=== PATIENT | female | born 1960 | race Caucasian/White ===

== ENCOUNTER 2017-09-16 13:31 | Emergency (ER) | payer BC, SELFPAY ==
--- OUTSIDE RECORDS SUMMARY | 2017-09-16 13:33 | XMS REPORT | Clinical Summary ---
:1960 Author Organization [facility] Address [address] [place] [address] Phone Care Team Providers Name Role Phone Unavailable Primary Care Provider Unavailable Allergies No Known Allergies Current Medications Prescription Sig. Disp. Refills Start Date End Date Status rOPINIRole (REQUIP) 1 Take 1 mg by Active MG tablet mouth 3 (three) times daily Pt stated that she is unsure of the dose and only takes it prn . aspirin 81 MG chewable Take 1 tablet (81 30 tablet 3 03/27/2016 Active tablet mg total) by mouth daily. atorvastatin (LIPITOR) Take 1 tablet (80 30 tablet 3 03/27/2016 Active 80 MG tablet mg total) by mouth daily. Active Problems Problem Noted Date Ex-smoker 03/27/2016 Right sided weakness 03/26/2016 Headache 03/26/2016 Restless leg syndrome 03/26/2016 Hyperlipidemia 03/26/2016 Aphasia 03/26/2016 TIA (transient ischemic attack) 03/25/2016 Family History Medical History Relation Name Comments Migraines Brother Stroke Maternal Grandmother Seizures Sister Relation Name Status Comments Brother Maternal Grandmother Sister Sister Alive Social History Tobacco Use Types Packs/Day Years Used Date Former Smoker Quit: 08/08/2009 Smokeless Tobacco: Never Used Tobacco Cessation: Counseling Given: No Alcohol Use Drinks/Week oz/Week Comments Yes 2 Cans of beer 1.2 2 can of beer every 6 months Sex Assigned at Date Recorded Not on file Last Filed Vital Signs Not on file Plan of Treatment Not on file Results Not on fileafter 09/15/2016
--- NOTE | 2017-09-16 14:25 | RAD REPORT ---
EXAM DESCRIPTION: VAS - Extrem Venous W Compress Apollo - 09/16/2017 2:10 pm CLINICAL HISTORY: Bilateral leg edema and swelling. COMPARISON: 03/24/2014 TECHNIQUE: Real-time sonographic interrogation of the left and right lower extremity deep venous sys tems was performed. FINDINGS: Normal compressibility, flow augmentation, phasic flow and spontaneous flow is identified in both the left and right lower extremity deep venous systems. IMPRESSION: No sonographic evidence of left or right lower extremity deep venous thrombosis.
--- NOTE | 2017-09-16 16:11 | RAD REPORT ---
EXAM DESCRIPTION: RAD - Tib Fib Right - 09/16/2017 4:04 pm CLINICAL HISTORY: Leg pain COMPARISON: None. FINDINGS: No fracture is identified. There is no dislocation or periosteal reaction noted. No knee o r ankle joint abnormality identifiable. No acute or suspicious bony finding. No foreign body or other soft tissue abnormality. IMPRESSION: Negative right tibia & fibula examination.
--- NOTE | 2017-09-16 16:23 | EDPHYS ---
Physician Documentation [facility] Name: Marisa Baker Age: 57 yrs Sex: Female : 1960 Arrival Date: 09/16/2017 Time: 13:37 Bed 9 Private MD: Nelson Jacobson B ED Physician Mata Woodard HPI: 09/16 15:45 This 57 yrs old Female presents to ER via Ambulatory with complaints of Leg cp Pain. 15:45 The patient presents with pain, that is acute, tenderness. The complaints affect the cp right calf and right Achilles. Context: resulted from an unknown cause. 15:45 Onset: The symptoms/episode began/occurred this morning. cp 15:45 Associated signs and symptoms: Pertinent positives: calf tenderness, Pertinent cp negatives fever, shortness of breath, chest pain. Historical: - Allergies: 13:47 No Known Allergies; ch - Home Meds: 13:47 None [Active]; ch - PMHx: 13:47 CVA; "small blood clot somewhere"; ch - PSHx: 13:47 Hysterectomy; Tonsillectomy; breast augmentation; ; Bunionectomy; ch Cholecystectomy; hemmerhoiectomy; shoulders; - Immunization history:: Adult Immunizations up to date, Flu vaccine is not up to date. - Social history:: Smoking status: Patient/guardian denies using tobacco, Patient/guardian denies using alcohol, street drugs. ROS: 15:50 Constitutional: Negative for body aches, chills, fever, poor PO intake. cp 15:50 Eyes: Negative for injury, pain, redness, and discharge. cp 15:50 ENT: Negative for drainage from ear(s), ear pain, sore throat, difficulty swallowing, difficulty handling secretions. 15:50 Cardiovascular: Negative for chest pain, edema, palpitations. 15:50 Respiratory: Negative for cough, shortness of breath, wheezing. 15:50 Abdomen/GI: Negative for abdominal pain, nausea, vomiting, and diarrhea, black/tarry stool, rectal bleeding. 15:50 Back: Negative for pain at rest, pain with movement, radiated pain. 15:50 : Negative for urinary symptoms. 15:50 MS/extremity: Positive for pain, tenderness, of the right Achilles and right calf. 15:50 Skin: Negative for cellulitis, diaphoresis, rash. 15:50 Neuro: Negative for altered mental status, headache, numbness, syncope, near syncope, tingling, weakness. 15:50 All other systems are negative. Exam: 15:58 Constitutional: The patient appears in no acute distress, alert, awake, well developed, cp well nourished. 15:58 Head/Face: Normocephalic, atraumatic. cp 15:58 Eyes: Periorbital structures: appear normal, Conjunctiva: normal, no exudate, no injection, Sclera: no appreciated abnormality, Lids and lashes: appear normal, bilaterally. 15:58 ENT: External ear(s): are unremarkable, Nose: is normal, Mouth: is normal, Posterior pharynx: is normal, airway is patent, no erythema, no exudate. 15:58 Chest/axilla: Inspection: normal. 15:58 Cardiovascular: Rate: normal. 15:58 Respiratory: the patient does not display signs of respiratory distress, Respirations: normal, no use of accessory muscles, no retractions, no splinting, no tachypnea. 15:58 Abdomen/GI: Exam negative for discomfort, distension, guarding, Inspection: abdomen appears normal. 15:58 Musculoskeletal/extremity: Extremities: grossly normal except: noted in the right Achilles and right calf: pain, There is no evidence of decreased ROM, deformity, ecchymosis, erythema, swelling. 15:58 Skin: cellulitis, is not appreciated, no rash present. Vital Signs: 13:47 BP 143 / 99; Pulse 74; Resp 16; Temp 98.5; Pulse Ox 99% on R/A; Weight 70.76 kg; Height ch 5 ft. 3 in. (160.02 cm); Pain 6/10; 16:31 BP 137 / 84; Pulse 87; Resp 16; Pulse Ox 99% on R/A; aj 13:47 Body Mass Index 27.63 (70.76 kg, 160.02 cm) ch MDM: 15:30 Patient medically screened. cp 16:22 Data reviewed: vital signs, nurses notes, radiologic studies, plain films, ultrasound, cp and as a result, I will discharge patient. 09/16 13:50 Order name: US Extrem Venous W Compression Apollo; Complete Time: 15:12 09/16 15:43 Order name: XRAY Tib Fib RIGHT; Complete Time: 16:22 cp 09/16 16:22 Interpretation: Report reviewed. cp Administered Medications: No medications were administered Disposition: 09/16/17 16:23 Discharged to Home. Impression: Pain in right lower leg. - Condition is Stable. - Discharge Instructions: Musculoskeletal Pain. - Prescriptions for Cyclobenzaprine 10 mg Oral Tablet - take 1 tablet by ORAL route every 8 hours As needed no driving while taking medication; 20 tablet. Medrol (Haile) 4 mg Oral Tablets, Dose Pack - take 1 tablet by ORAL route as directed - follow package instructions; 1 packet. - Medication Reconciliation Form, Thank You Letter, Antibiotic Education, Prescription Opioid Use form. - Follow up: Private Physician; When: 2 - 3 days; Reason: Recheck today's complaints. - Problem is new. - Symptoms are unchanged. Addendum: 09/21/2017 19:52 Co-signature as Attending Physician, Mata Woodard MD. m a2 Signatures: Dispatcher [employer] EDLizz Hernandez, ALEJANDRO-C ALEJANDRO-Maria Guadalupe Leija RN RN Marium Fortune RN RN aj Page, Corey, LAZARO PA Mata Haque MD MD nv2 Corrections: (The following items were deleted from the chart) 09/16 16:33 16:23 09/16/2017 16:23 Discharged to Home. Impression: Pain in right lower leg. aj Condition is Stable. Forms are Medication Reconciliation Form, Thank You Letter, Antibiotic Education, Prescription Opioid Use. Follow up: Private Physician; When: 2 - 3 days; Reason: Recheck today's complaints. Problem is new. Symptoms are unchanged. cp
--- NOTE | 2017-09-16 16:23 | ER ---
Nurse's Notes [facility] Name: Marisa Baker Age: 57 yrs Sex: Female : 1960 Arrival Date: 09/16/2017 Time: 13:37 Bed 9 Private MD: Nelson Jacobson B Diagnosis: Pain in right lower leg Presentation: 09/16 13:44 Presenting complaint: Patient states: "i have clotty blood" pt c/o pain to L calf ch started this morning. pain is in L calf radiating up and down leg. I am worried i have a blood clot in my leg, I had a blood clot stroke. On Friday I had a out of body/dizzyness experience, and since then I have not felt well, I feel very tired, worn out and weak. Transition of care: patient was not received from another setting of care. Onset of symptoms was September 16, 2017 at 06:30. Initial Sepsis Screen: Does the patient meet any 2 criteria? No. Patient's initial sepsis screen is negative. Does the patient have a suspected source of infection? No. Patient's initial sepsis screen is negative. Care prior to arrival: None. 13:44 Method Of Arrival: Ambulatory 13:44 Acuity: YESSI 3 ch Triage Assessment: 13:47 General: Appears in no apparent distress. comfortable, Behavior is calm, cooperative, ch appropriate for age. Pain: Complains of pain in left calf. Historical: - Allergies: 13:47 No Known Allergies; - Home Meds: 13:47 None [Active]; - PMHx: 13:47 CVA; "small blood clot somewhere"; - PSHx: 13:47 Hysterectomy; Tonsillectomy; breast augmentation; ; Bunionectomy; ch Cholecystectomy; hemmerhoiectomy; shoulders; - Immunization history:: Adult Immunizations up to date, Flu vaccine is not up to date. - Social history:: Smoking status: Patient/guardian denies using tobacco, Patient/guardian denies using alcohol, street drugs. Screenin:14 Abuse screen: Denies threats or abuse. Denies injuries from another. Nutritional aj screening: No deficits noted. Tuberculosis screening: No symptoms or risk factors identified. Fall Risk None identified. Assessment: 15:32 Reassessment: pt not in lobby or US. will call again. ss 16:14 General: Appears in no apparent distress. comfortable, Behavior is calm, cooperative, aj appropriate for age. Pain: Complains of pain in right leg. Neuro: Level of Consciousness is awake, alert, obeys commands, Oriented to person, place, time, situation, Appropriate for age. Respiratory: Airway is patent Respiratory effort is even, unlabored, Respiratory pattern is regular, symmetrical. GI: Abdomen is flat, non-distended. Derm: Skin is intact, is healthy with good turgor, Skin is pink, warm \\T\\ dry. normal. Musculoskeletal: Circulation, motion, and sensation intact. Capillary refill < 3 seconds, in bilateral fingers. Range of motion: intact in all extremities, Swelling absent. Vital Signs: 13:47 BP 143 / 99; Pulse 74; Resp 16; Temp 98.5; Pulse Ox 99% on R/A; Weight 70.76 kg; Height ch 5 ft. 3 in. (160.02 cm); Pain 6/10; 16:31 BP 137 / 84; Pulse 87; Resp 16; Pulse Ox 99% on R/A; aj 13:47 Body Mass Index 27.63 (70.76 kg, 160.02 cm) ED Course: 13:37 Patient arrived in ED. mr 13:37 Nelson Jacobson MD is Private Physician. mr 13:46 Triage completed. ch 13:47 Arm band placed on left wrist. Patient placed in waiting room. ch 13:55 Patient taken to ultrasound. via wheelchair. aa4 14:09 Patient moved back from ultrasound. aa4 14:11 US Extrem Venous W Compression Apollo In Process Unspecified. EDMS 15:30 Alvino Kam PA is PHCP. cp 15:30 Mata Woodard MD is Attending Physician. cp 15:38 Alvino Kam PA is PHCP. cp 15:38 Mata Woodard MD is Attending Physician. cp 15:41 Marium Roberson, AMY is Primary Nurse. aj 16:03 X-ray completed. Portable x-ray completed in exam room. Patient tolerated procedure ml well. 16:05 XRAY Tib Fib RIGHT In Process Unspecified. EDMS 16:14 Patient has correct armband on for positive identification. aj 16:31 No provider procedures requiring assistance completed. Patient did not have IV access aj during this emergency room visit. Administered Medications: No medications were administered Outcome: 16:23 Discharge ordered by . lisset 16:31 Discharged to home ambulatory. cely 16:31 Condition: good 16:31 Discharge instructions given to patient, Instructed on discharge instructions, follow up and referral plans. medication usage, Demonstrated understanding of instructions, follow-up care, medications, Prescriptions given X 2. 16:33 Patient left the ED. cely Signatures: Dispatcher [employer] EDMS Maria Guadalupe Campa, Marium Recinos RN, ch, RN RN aj Rivera, Maria mr Byron, Marium Rachel aa4 Sherry Juarez RN RN Alvino Musa, PA PA cp
[2017-09-16 17:03] VITALS: TEMP 98.5; O2SAT 99
[2017-09-16 17:05] VITALS: BP 137/84
== END 2017-09-16 16:33 | disposition home or self-care (01) ==
LOC: ER 13:31
DX: M79.661 Pain in right lower leg (principal); Z86.73 Personal history of transient ischemic attack (TIA), and cerebral infarction without residual deficits
CPT/HCPCS: 93970; 99284

== ENCOUNTER 2017-11-21 00:33 | Emergency (ER) | payer BC ==
[2017-11-21] MEDS ORDERED: NA CHLORIDE 0.9% 1,000 ML ONE ×2 (01:07→02:16)
[2017-11-21 01:25] LABS: Absolute Monocytes 1.4 K/uL (0.1-1.3); Absolute Neutrophil 7.7 K/uL (1.8-8.0); Basophils % 0.5 % (0-1.3); Eosinophils % 0.3 % (0-4.4); Hematocrit 43.8 % (36.0-45.0); MCH 29.8 pg (27.0-35.0); MCV 87.6 fL (80-100); MPV 9.5 fL (7.6-11.3); Monocytes % 14.1 % (3.3-12.3)
[2017-11-21 01:27] LABS: Urine Blood 1+ (NEG); Urine Glucose NEGATIVE (NEG); Urine Specific Gravity 1.025 (1.005-1.030)
[2017-11-21 01:28] LABS: Urine Protein TRACE (NEG)
[2017-11-21] MEDS ORDERED: ACETAMINOPHEN 325 MG TABLET ONE (01:32)
[2017-11-21] MEDS ORDERED: ONDANSETRON 4 MG/2 ML VIAL ONE (01:33)
[2017-11-21] MEDS ORDERED: MORPHINE 4 MG/ML SYR ONE ×2 (01:33→02:45)
[2017-11-21 01:41] LABS: Protime INR 1.19
[2017-11-21 01:53] LABS: ALT/SGPT 42 U/L (12-78); AST/SGOT 37 U/L (15-37); Albumin 4.1 g/dL (3.4-5.0); Alkaline Phosphatase 109 U/L (45-117); BUN Blood Urea Nitrogen 10 mg/dL (7-18); Bicarbonate 26 mmol/L (21-32); Bilirubin Direct 0.1 mg/dL (0-0.2); Bilirubin Total 0.7 mg/dL (0.2-1.0); CKMB Creatine Kinase MB < 1.0 ng/mL (0.3-3.6); Creatine Phosphokinase 42 U/L (26-192); Glucose Level 110 mg/dL (74-106); Magnesium 1.9 mg/dL (1.8-2.4); NT PRO-BNP 55 pg/mL (<125); Potassium 3.5 mmol/L (3.5-5.1); Protein, Total 8.2 g/dL (6.4-8.2); Sodium Level 138 mmol/L (136-145)
--- NOTE | 2017-11-21 02:44 | EDPHYS ---
Physician Documentation [facility] Name: Marisa Baker Age: 57 yrs Sex: Female : 1960 Arrival Date: 11/21/2017 Time: 00:34 Bed 24 Private MD: Nelson Jacobson B ED Physician Skinny Hernandez HPI: 11/21 01:00 This 57 yrs old Female presents to ER via Ambulatory with complaints of pkl Abdominal Pain, Fever. 01:00 The patient reports fever, with an emergency department temperature of 100.5 degrees pkl Fahrenheit. Onset: The symptoms/episode began/occurred 2 day(s) ago. Associated signs and symptoms: Pertinent positives: generalized weakness and pain. Historical: - Allergies: 00:49 No Known Allergies; tl2 - Home Meds: 00:49 None [Active]; tl2 - PMHx: 00:49 CVA; "small blood clot somewhere"; tl2 - PSHx: 00:49 Cholecystectomy; ; Hysterectomy; Tonsillectomy; tl2 - Immunization history:: Adult Immunizations up to date, Flu vaccine is not up to date. - Social history:: Smoking status: Patient/guardian denies using tobacco. - Ebola Screening: : No symptoms or risks identified at this time. ROS: 01:00 Eyes: Negative for injury, pain, redness, and discharge. pkl 01:00 ENT: Positive for sore throat. 01:00 Neck: Negative for stiffness. 01:00 Cardiovascular: Negative for chest pain. 01:00 Respiratory: Negative for cough, shortness of breath. 01:00 Abdomen/GI: Negative for nausea, vomiting, and diarrhea. 01:00 Back: Negative for acute changes. 01:00 : Negative for urinary symptoms. 01:00 MS/extremity: Negative for acute changes. 01:00 Skin: Negative for rash. pkl 01:00 Neuro: Negative for altered mental status. Exam: 01:00 Head/Face: Normocephalic, atraumatic. Eyes: Pupils equal round and reactive to light, pkl extra-ocular motions intact. Lids and lashes normal. Conjunctiva and sclera are non-icteric and not injected. Cornea within normal limits. Periorbital areas with no swelling, redness, or edema. ENT: Nares patent. No nasal discharge, no septal abnormalities noted. Tympanic membranes are normal and external auditory canals are clear. Oropharynx with no redness, swelling, or masses, exudates, or evidence of obstruction, uvula midline. Mucous membranes moist. Neck: Trachea midline, no thyromegaly or masses palpated, and no cervical lymphadenopathy. Supple, full range of motion without nuchal rigidity, or vertebral point tenderness. No Meningismus. Chest/axilla: Normal chest wall appearance and motion. Nontender with no deformity. No lesions are appreciated. Cardiovascular: Regular rate and rhythm with a normal S1 and S2. No gallops, murmurs, or rubs. Normal PMI, no JVD. No pulse deficits. Respiratory: Lungs have equal breath sounds bilaterally, clear to auscultation and percussion. No rales, rhonchi or wheezes noted. No increased work of breathing, no retractions or nasal flaring. Abdomen/GI: Soft, non-tender, with normal bowel sounds. No distension or tympany. No guarding or rebound. No evidence of tenderness throughout. Back: No spinal tenderness. No costovertebral tenderness. Full range of motion. Skin: Warm, dry with normal turgor. Normal color with no rashes, no lesions, and no evidence of cellulitis. MS/ Extremity: Pulses equal, no cyanosis. Neurovascular intact. Full, normal range of motion. Neuro: Awake and alert, GCS 15, oriented to person, place, time, and situation. Cranial nerves II-XII grossly intact. Motor strength 5/5 in all extremities. Sensory grossly intact. Cerebellar exam normal. Normal gait. Vital Signs: 00:49 BP 135 / 81; Pulse 107; Resp 20; Temp 100.5(O); Pulse Ox 96% on R/A; Weight 68.04 kg; tl2 Height 5 ft. 2 in. (157.48 cm); Pain 8/10; 01:45 BP 124 / 70; Pulse 87; Resp 16; Pulse Ox 97% on R/A; mb3 02:44 BP 90 / 49; Pulse 85; Resp 16; Pulse Ox 96% on R/A; mb3 00:49 Body Mass Index 27.44 (68.04 kg, 157.48 cm) tl2 MDM: 00:52 Patient medically screened. pkl 02:42 Data reviewed: vital signs, nurses notes, lab test result(s), radiologic studies, plain pkl films. 11/21 00:59 Order name: Basic Metabolic Panel; Complete Time: 01:53 pkl 11/21 00:59 Order name: CBC with Diff; Complete Time: 01:39 pkl 11/21 00:59 Order name: Ckmb; Complete Time: 01:53 pkl 11/21 00:59 Order name: CPK; Complete Time: 01:53 pkl 11/21 00:59 Order name: LFT's; Complete Time: 01:53 pkl 11/21 00:59 Order name: Magnesium; Complete Time: 01:53 pkl 11/21 00:59 Order name: NT PRO-BNP; Complete Time: 01:53 pkl 11/21 00:59 Order name: PT-INR; Complete Time: 01:53 pkl 11/21 00:59 Order name: Ptt, Activated; Complete Time: 01:53 pkl 11/21 00:59 Order name: Troponin (emerg Dept Use Only); Complete Time: 01:53 pkl 11/21 00:59 Order name: Blood Culture Adult (2) pkl 11/21 00:59 Order name: Strep; Complete Time: 02:42 pkl 11/21 01:05 Order name: Lactate; Complete Time: 01:53 pkl 11/21 01:23 Order name: Urine Dipstick--Ancillary (enter results) eb 11/21 00:59 Order name: XRAY Chest (1 view) pkl 11/21 00:59 Order name: EKG; Complete Time: 01:00 pkl 11/21 00:59 Order name: Cardiac monitoring; Complete Time: 01:16 pkl 11/21 00:59 Order name: EKG - Nurse/Tech; Complete Time: 01:16 pkl 11/21 00:59 Order name: IV Saline Lock; Complete Time: 01:16 pkl 11/21 00:59 Order name: Labs collected and sent; Complete Time: 01:16 pkl 11/21 00:59 Order name: O2 Per Protocol; Complete Time: 01:16 pkl 11/21 00:59 Order name: O2 Sat Monitoring; Complete Time: 01:16 pkl 11/21 01:23 Order name: Urine Dipstick-Ancillary; Complete Time: 01:28 EDMS 11/21 02:16 Order name: Throat Culture EDMS 07/06 00:59 Order name: Urine Dipstick-Ancillary (obtain specimen); Complete Time: 01:16 pkl Administered Medications: 01:30 Drug: NS 0.9% 1000 ml Route: IV; Rate: 1000 ml; Site: right antecubital; mb3 02:34 Follow up: Response: No adverse reaction; IV Status: Completed infusion; IV Intake: mb3 1000ml 01:35 Drug: Tylenol 650 mg Route: PO; mb3 02:34 Follow up: Response: No adverse reaction mb3 01:35 Drug: morphine 2 mg Route: IVP; Site: right antecubital; mb3 02:34 Follow up: Response: No adverse reaction mb3 01:35 Drug: Zofran 4 mg Route: IVP; Site: right antecubital; mb3 02:35 Follow up: Response: No adverse reaction mb3 02:20 Drug: NS 0.9% 1000 ml Route: IV; Rate: 125 ml/hr; Site: right antecubital; mb3 02:57 Follow up: Response: No adverse reaction; IV Status: Order to discontinue infusion; IV mb3 Intake: 250ml 02:43 Drug: morphine 2 mg Route: IVP; Site: right antecubital; mb3 Disposition: 11/21/17 02:43 Discharged to Home. Impression: Viral illness. Myalgia. - Condition is Stable. - Prescriptions for Ultram 50 mg Oral Tablet - take 1 tablet by ORAL route every 8 hours As needed; 20 tablet. - Medication Reconciliation Form, Thank You Letter, Antibiotic Education, Prescription Opioid Use form. - Follow up: Nelson Jacobson MD; When: 2 - 3 days; Reason: Re-evaluation by your physician. - Problem is new. - Symptoms have improved. Signatures: Dispatcher [employer] [facility] Skinny Hernandez MD MD pkMarcelina Rivera RN RN tl2 Herman Pabon, RN RN mb3 Corrections: (The following items were deleted from the chart) 02:56 02:43 11/21/2017 02:43 Discharged to Home. Impression: Viral illness. Myalgia. mb3 Condition is Stable. Forms are Medication Reconciliation Form, Thank You Letter, Antibiotic Education, Prescription Opioid Use. Follow up: Nelson Jacobson; When: 2 - 3 days; Reason: Re-evaluation by your physician. Problem is new. Symptoms have improved. pkl
--- NOTE | 2017-11-21 02:44 | ER ---
Nurse's Notes [facility] Name: Marisa Baker Age: 57 yrs Sex: Female : 1960 Arrival Date: 11/21/2017 Time: 00:34 Bed 24 Private MD: Nelson Jacobson B Diagnosis: Viral illness. Myalgia Presentation: 11/21 00:47 Presenting complaint: Patient states: Reports pain all over and general malaise x 2 tl2 days. States mother is in hospital for pneumonia and has similar symptoms. Denies cough or congestion, denies NVD. Reports fever yesterday. Transition of care: patient was not received from another setting of care. Onset of symptoms was November 18, 2017. Risk Assessment: Do you want to hurt yourself or someone else? Patient reports no desire to harm self or others. Initial Sepsis Screen: Does the patient meet any 2 criteria? Temp <36.0*C (96.8*F)) or > 38.3*C (100.4*F). HR > 90 bpm. Does the patient have a suspected source of infection? No. Patient's initial sepsis screen is negative. Care prior to arrival: None. 00:47 Method Of Arrival: Ambulatory tl2 00:47 Acuity: YESSI 3 tl2 Triage Assessment: 00:49 General: Appears in no apparent distress. uncomfortable, Behavior is calm, cooperative, tl2 appropriate for age, Reports fever for 12-24 hours, feeling ill for 1-2 days. Historical: - Allergies: 00:49 No Known Allergies; tl2 - Home Meds: 00:49 None [Active]; tl2 - PMHx: 00:49 CVA; "small blood clot somewhere"; tl2 - PSHx: 00:49 Cholecystectomy; ; Hysterectomy; Tonsillectomy; tl2 - Immunization history:: Adult Immunizations up to date, Flu vaccine is not up to date. - Social history:: Smoking status: Patient/guardian denies using tobacco. - Ebola Screening: : No symptoms or risks identified at this time. Screenin:50 Abuse screen: Denies threats or abuse. Nutritional screening: No deficits noted. tl2 Tuberculosis screening: No symptoms or risk factors identified. Fall Risk None identified. Assessment: 00:55 General: Appears distressed, uncomfortable, ill, Behavior is calm, cooperative, mb3 appropriate for age. Pain: Complains of pain in pt complains of pain all over, generalized. Neuro: Level of Consciousness is awake, alert, obeys commands, Oriented to person, place, time, situation, Appropriate for age. Cardiovascular: Heart tones S1 S2 present Capillary refill < 3 seconds Patient's skin is warm and dry. Respiratory: Airway is patent Respiratory effort is even, unlabored, Respiratory pattern is regular, symmetrical, Breath sounds are clear bilaterally. GI: Bowel sounds present X 4 quads. Abd is soft Abdomen is tender to palpation X 4 quads. Reports lower abdominal pain, upper abdominal pain. : No signs and/or symptoms were reported regarding the genitourinary system. EENT: No signs and/or symptoms were reported regarding the EENT system. Vital Signs: 00:49 BP 135 / 81; Pulse 107; Resp 20; Temp 100.5(O); Pulse Ox 96% on R/A; Weight 68.04 kg; tl2 Height 5 ft. 2 in. (157.48 cm); Pain 8/10; 01:45 BP 124 / 70; Pulse 87; Resp 16; Pulse Ox 97% on R/A; mb3 02:44 BP 90 / 49; Pulse 85; Resp 16; Pulse Ox 96% on R/A; mb3 00:49 Body Mass Index 27.44 (68.04 kg, 157.48 cm) tl2 ED Course: 00:34 Patient arrived in ED. ds1 00:34 Tyrone Alcantara MD is Private Physician. ds1 00:34 Nelson Jacobson MD is Private Physician. ds1 00:49 Triage completed. tl2 00:49 Arm band placed on right wrist. tl2 00:50 Herman Pabon, AMY is Primary Nurse. mb3 00:50 Patient has correct armband on for positive identification. Placed in gown. Bed in low tl2 position. Call light in reach. Side rails up X 1. Adult w/ patient. 00:52 Skinny Hernandez MD is Attending Physician. pkl 01:10 Inserted saline lock: 20 gauge in right antecubital area, using aseptic technique. mb3 Blood collected. 01:21 X-ray completed. Portable x-ray completed in exam room. Patient tolerated procedure kw well. 01:22 XRAY Chest (1 view) In Process Unspecified. EDMS 01:25 Second set of blood cultures drawn by me, Strep swab sent to lab. mb3 01:39 Patient maintains SpO2 saturation greater than 95% on room air. mb3 02:42 Nelson Jacobson MD is Referral Physician. pkl 02:49 No provider procedures requiring assistance completed. IV discontinued, intact, mb3 bleeding controlled, No redness/swelling at site. Pressure dressing applied. 02:57 Urine Dipstick--Ancillary (enter results) Sent. mb3 Administered Medications: 01:30 Drug: NS 0.9% 1000 ml Route: IV; Rate: 1000 ml; Site: right antecubital; mb3 02:34 Follow up: Response: No adverse reaction; IV Status: Completed infusion; IV Intake: mb3 1000ml 01:35 Drug: Tylenol 650 mg Route: PO; mb3 02:34 Follow up: Response: No adverse reaction mb3 01:35 Drug: morphine 2 mg Route: IVP; Site: right antecubital; mb3 02:34 Follow up: Response: No adverse reaction mb3 01:35 Drug: Zofran 4 mg Route: IVP; Site: right antecubital; mb3 02:35 Follow up: Response: No adverse reaction mb3 02:20 Drug: NS 0.9% 1000 ml Route: IV; Rate: 125 ml/hr; Site: right antecubital; mb3 02:57 Follow up: Response: No adverse reaction; IV Status: Order to discontinue infusion; IV mb3 Intake: 250ml 02:43 Drug: morphine 2 mg Route: IVP; Site: right antecubital; mb3 Intake: 02:34 IV: 1000ml; Total: 1000ml. mb3 02:57 IV: 250ml; Total: 1250ml. mb3 Outcome: 02:43 Discharge ordered by . pkl 02:50 Discharged to home ambulatory, with family. mb3 02:50 Condition: stable 02:50 Discharge instructions given to patient, Instructed on discharge instructions, follow up and referral plans. medication usage, Demonstrated understanding of instructions, follow-up care, medications, Prescriptions given X 1. 02:56 Patient left the ED. mb3 Signatures: Dispatcher [employer] EDMI Skinny Hernandez MD MD pkl Kasia Hennessy ds1 Kristan Rogers Taylor, RN RN tl2 Herman Pabon, RN RN mb3
[2017-11-21 03:00] VITALS: TEMP 100.5
[2017-11-21 03:02] VITALS: BP 90/49; O2SAT 96
--- NOTE | 2017-11-21 08:47 | RAD REPORT ---
EXAM DESCRIPTION: RAD - Chest Single View - 11/21/2017 1:22 am CLINICAL HISTORY: generalized pain Chest pain. COMPARISON: Chest Single View dated 10/21/2016; Chest Single View dated 03/25/2016; CHEST SINGLE VIEW d ated 04/23/2015; CHEST SINGLE VIEW dated 03/09/2015Chest Single View dated 10/21/2016; Chest Single View dated 03/25/2016; CHEST SINGLE VIEW dated 04/23/2015; CHEST SINGLE VIEW dated 03/09/2015; CHEST SINGLE VIEW dated 01/15/2015 FINDINGS: Portable technique limits examination quality. The lungs are grossly clear. The heart is normal in size. No displaced fractures. IMPRESSION: No acute intrathoracic process suspected.
--- NOTE | 2017-11-21 12:44 | EKG ---
Test Date: 2017-11-21 Test Time: 01:10:10 Factory Engineer: SVITLANA MEASUREMENT RESULTS: Intervals: Rate: 105 IA: 128 QRSD: 78 QT: 316 QTc: 417 [place]: P: 2 IA: 128 QRS: 9 T: 4 INTERPRETIVE STATEMENTS: Sinus tachycardia Nonspecific ST abnormality Abnormal ECG No previous ECG available for comparison Electronically Signed On 11-21-17 12:43:45 CDT by Eber Connors
== END 2017-11-21 02:56 | disposition home or self-care (01) ==
LOC: ER 00:33
DX: B34.9 Viral infection, unspecified (principal); M79.1 Myalgia
CPT/HCPCS: 36415; 71045; 80048; 80076; 81003; 82550; 82553; 83605; 83735; 83880; 84484; 85025; 85610; 85730; 87040; 87070; 87081; 93005; 96361; 96374; 96375; 99284; J2405; J7030

== ENCOUNTER 2017-11-23 22:12 | Emergency (ER) | payer BC ==
[2017-11-23] MEDS ORDERED: IBUPROFEN 400 MG TAB ONE (23:18)
[2017-11-23 23:25] LABS: Urine Blood 1+ (NEG); Urine Glucose NEGATIVE (NEG); Urine Protein TRACE (NEG); Urine pH 5.5 (5.0-7.0)
[2017-11-23 23:34] LABS: Urine Bacteria <20 /HPF (<20); Urine Culture Reflex Order NOT NEEDED; Urine RBC <5 /HPF (NONE SEEN)
[2017-11-24] MEDS ORDERED: levoFLOXacin 750 MG TAB ONE (00:18)
--- NOTE | 2017-11-24 00:41 | EDPHYS ---
Physician Documentation [facility] Name: Marisa Baker Age: 57 yrs Sex: Female : 1960 Arrival Date: 11/23/2017 Time: 22:14 Bed 5 Private MD: Nelson Jacobson B ED Physician Alvino Mckinley HPI: 11/23 23:06 This 57 yrs old Female presents to ER via Ambulatory with complaints of jr8 Cough, Chest Pressure. 23:06 The patient or guardian reports cough, that is intermittent, described as moderate, jr8 with no sputum. Onset: The symptoms/episode began/occurred gradually, 3 day(s) ago. Severity of symptoms: At their worst the symptoms were moderate, in the emergency department the symptoms are unchanged. Modifying factors: The symptoms are alleviated by nothing, the symptoms are aggravated by nothing. Associated signs and symptoms: Pertinent positives: chest pain, fever, sore throat, body aches, chills, headache . The patient has not experienced similar symptoms in the past. The patient has been recently seen by a physician: with similar presenting complaints, lab tests were done, X-rays were performed. Historical: - Allergies: 22:49 diphenhydramine HCl; ak1 - PMHx: 22:49 "small blood clot somewhere"; CVA; ak1 - PSHx: 22:49 Cholecystectomy; ; Hysterectomy; Tonsillectomy; ak1 - Immunization history:: Last tetanus immunization: up to date. - Social history:: Smoking status: Patient/guardian denies using tobacco. - Ebola Screening: : Patient negative for fever greater than or equal to 101.5 degrees Fahrenheit, and additional compatible Ebola Virus Disease symptoms Patient denies exposure to infectious person Patient denies travel to an Ebola-affected area in the 21 days before illness onset. ROS: 23:06 Eyes: Negative for injury, pain, redness, and discharge, Neck: Negative for injury, jr8 pain, and swelling, Abdomen/GI: Negative for abdominal pain, nausea, vomiting, diarrhea, and constipation, Back: Negative for injury and pain, MS/Extremity: Negative for injury and deformity, Skin: Negative for injury, rash, and discoloration. 23:06 Constitutional: Positive for body aches, chills, fever. 23:06 ENT: Positive for rhinorrhea, sinus congestion, sore throat. 23:06 Cardiovascular: Positive for chest pain, Negative for edema, orthopnea, palpitations, paroxysmal nocturnal dyspnea. 23:06 Respiratory: Positive for cough, Negative for dyspnea on exertion, shortness of breath, sputum production, wheezing. 23:06 Neuro: Positive for headache, Negative for altered mental status, dizziness, gait disturbance, hearing loss, loss of consciousness, numbness, seizure activity, speech changes, syncope, near syncope, tingling, tinnitus, tremor, visual changes, weakness. Exam: 23:55 Eyes: Pupils equal round and reactive to light, extra-ocular motions intact. Lids and jr8 lashes normal. Conjunctiva and sclera are non-icteric and not injected. Cornea within normal limits. Periorbital areas with no swelling, redness, or edema. ENT: Nares patent. No nasal discharge, no septal abnormalities noted. Tympanic membranes are normal and external auditory canals are clear. Oropharynx with no redness, swelling, or masses, exudates, or evidence of obstruction, uvula midline. Mucous membranes moist. Neck: Trachea midline, no thyromegaly or masses palpated, and no cervical lymphadenopathy. Supple, full range of motion without nuchal rigidity, or vertebral point tenderness. No Meningismus. Cardiovascular: Regular rate and rhythm with a normal S1 and S2. No gallops, murmurs, or rubs. Normal PMI, no JVD. No pulse deficits. Respiratory: Lungs have equal breath sounds bilaterally, clear to auscultation and percussion. No rales, rhonchi or wheezes noted. No increased work of breathing, no retractions or nasal flaring. Abdomen/GI: Soft, non-tender, with normal bowel sounds. No distension or tympany. No guarding or rebound. No evidence of tenderness throughout. Back: No spinal tenderness. No costovertebral tenderness. Full range of motion. Skin: Warm, dry with normal turgor. Normal color with no rashes, no lesions, and no evidence of cellulitis. MS/ Extremity: Pulses equal, no cyanosis. Neurovascular intact. Full, normal range of motion. Neuro: Awake and alert, GCS 15, oriented to person, place, time, and situation. Cranial nerves II-XII grossly intact. Motor strength 5/5 in all extremities. Sensory grossly intact. Cerebellar exam normal. Normal gait. Vital Signs: 22:20 BP 125 / 77; Pulse 96; Resp 24; Temp 100.4(O); Pulse Ox 98% on R/A; Weight 70.76 kg (R); Height 5 ft. 3 in. (160.02 cm) (R); Pain 8; 11/24 00:30 BP 105 / 71; Pulse 86; Resp 18; Temp 100(O); Pulse Ox 98% on R/A; ak1 11/23 22:20 Body Mass Index 27.63 (70.76 kg, 160.02 cm) [facility]: 11/23 22:32 Patient medically screened. graham 23:55 Data reviewed: vital signs, nurses notes, lab test result(s), EKG, radiologic studies, jr8 plain films. Data interpreted: Pulse oximetry: on room air is 98 %. Interpretation: normal. Counseling: I had a detailed discussion with the patient and/or guardian regarding: the historical points, exam findings, and any diagnostic results supporting the discharge/admit diagnosis, lab results, radiology results, the need for outpatient follow up, a family practitioner, to return to the emergency department if symptoms worsen or persist or if there are any questions or concerns that arise at home. 11/24 00:46 ED course: All images and old labs reviewed from two days ago. Negative studies then [facility] without culture growth. No acute findings today. Most compatible with virus based on symptoms and negative cultures and blood work. Will treat symptomatically and to f/u with PCP . 11/23 22:56 Order name: Urine Culture [facility] 11/23 22:56 Order name: Urine Microscopic Only; Complete Time: 23:38 [facility] 11/23 22:56 Order name: Urine Dipstick--Ancillary (enter results); Complete Time: 23:32 [facility] 11/23 22:56 Order name: XRAY Chest Pa And Lat (2 Views) [facility] 11/23 22:56 Order name: Influenza Screen (a \\T\\ B); Complete Time: 23:54 [facility] 11/23 22:56 Order name: EKG - Nurse/Tech; Complete Time: 23:25 jr Administered Medications: 11/23 23:19 Drug: Ibuprofen 800 mg Route: PO; ak1 11/24 00:16 Follow up: Response: No adverse reaction [facility] 00:16 Drug: LevaQUIN 750 mg Route: PO; ak1 00:16 Follow up: Response: No adverse reaction ak1 01:00 Drug: Phenergan-Codeine Liquid (6.25mg - 10mg / 5mL) 10 ml Route: PO; fc 01:04 Follow up: Response: Other; pt vomitted within a few minutes of taking fc Disposition: 09:31 Co-signature as Attending Physician, Alvino Mckinley MD I agree with the assessment and [facility] plan of care. Disposition: 11/24/17 00:41 Discharged to Home. Impression: Acute bronchitis, Acute upper respiratory infection, unspecified. - Condition is Stable. - Discharge Instructions: Acute Bronchitis, Upper Respiratory Infection, Adult. - Prescriptions for Tessalon Perles 100 mg Oral Capsule - take 1 capsule by ORAL route every 8 hours As needed; 15 capsule. Guaifenesin AC 10- 100 mg/5 mL Oral Liquid - take 10 milliliter by ORAL route every 4 hours As needed; 240 milliliter. - Medication Reconciliation Form, Thank You Letter, Antibiotic Education, Prescription Opioid Use form. - Follow up: Nelson Jacobson MD; When: 1 - 2 days; Reason: Recheck today's complaints, Continuance of care, Re-evaluation by your physician. - Problem is new. - Symptoms have improved. Signatures: Dispatcher [employer] EDMS Alvino Mckinley MD MD cha Chretien, Felicia, RN RN Chetan Cordero PA PA jr8 Aliyah Marley RN RN ak1 Corrections: (The following items were deleted from the chart) 00:40 0708 23:55 Test interpretation: by ED physician or midlevel provider: plain radiologic jr8 studies, Retrocardiac opacification seen on left side. Most likely pneumonia , jr8 11/24 01:11 00:41 11/24/2017 00:41 Discharged to Home. Impression: Acute bronchitis; Acute upper ak1 respiratory infection, unspecified. Condition is Stable. Forms are Medication Reconciliation Form, Thank You Letter, Antibiotic Education, Prescription Opioid Use. Follow up: Nelson Jacobson; When: 1 - 2 days; Reason: Recheck today's complaints, Continuance of care, Re-evaluation by your physician. Problem is new. Symptoms have improved. jr8
--- NOTE | 2017-11-24 00:41 | ER ---
Nurse's Notes [facility] Name: Marisa Baker Age: 57 yrs Sex: Female : 1960 Arrival Date: 11/23/2017 Time: 22:14 Bed 5 Private MD: Nelson Jacobson B Diagnosis: Acute bronchitis;Acute upper respiratory infection, unspecified Presentation: 11/23 22:20 Presenting complaint: Patient states: that she was seen here on for cough and fc congestion. Was told she had a virus and sent home. She continues to get worse. Has cough, congestion and runny nose. Pt is concerned because she needs to be with mother who is dying in hospital in [place]. 22:27 Transition of care: patient was not received from another setting of care. Onset of fc symptoms was November 18, 2017. Risk Assessment: Do you want to hurt yourself or someone else? Patient reports no desire to harm self or others. Initial Sepsis Screen: Does the patient meet any 2 criteria? RR > 20 per min. HR > 90 bpm. Does the patient have a suspected source of infection? Yes: Productive cough/pneumonia. Care prior to arrival: Medication(s) given: Motrin, 800 mg, last at 1600. 22:27 Method Of Arrival: Ambulatory fc 22:27 Acuity: YESSI 3 fc Triage Assessment: 22:50 General: Appears in no apparent distress. uncomfortable, Behavior is calm, cooperative. ak1 Pain: Complains of pain in chest. EENT: congestion . Neuro: No deficits noted. Cardiovascular: No deficits noted. Respiratory: Reports cough that is. GI: No signs and/or symptoms were reported involving the gastrointestinal system. : No signs and/or symptoms were reported regarding the genitourinary system. Derm: No signs and/or symptoms reported regarding the dermatologic system. Musculoskeletal: No signs and/or symptoms reported regarding the musculoskeletal system. Historical: - Allergies: 22:49 diphenhydramine HCl; ak1 - PMHx: 22:49 "small blood clot somewhere"; CVA; ak1 - PSHx: 22:49 Cholecystectomy; ; Hysterectomy; Tonsillectomy; ak1 - Immunization history:: Last tetanus immunization: up to date. - Social history:: Smoking status: Patient/guardian denies using tobacco. - Ebola Screening: : Patient negative for fever greater than or equal to 101.5 degrees Fahrenheit, and additional compatible Ebola Virus Disease symptoms Patient denies exposure to infectious person Patient denies travel to an Ebola-affected area in the 21 days before illness onset. Screenin:32 Abuse screen: Denies threats or abuse. Nutritional screening: No deficits noted. fc Tuberculosis screening: No symptoms or risk factors identified. Fall Risk None identified. Assessment: 22:47 Reassessment: Patient appears in no apparent distress at this time. Patient and/or ak1 family updated on plan of care and expected duration. Pain level reassessed. General: Appears in no apparent distress. uncomfortable. Pain: Pain does not radiate. Pain began pt was seen for same s/s. Neuro: No deficits noted. Cardiovascular: Reports chest pressure. Respiratory: Reports cough that is Airway is patent. GI: No signs and/or symptoms were reported involving the gastrointestinal system. : No signs and/or symptoms were reported regarding the genitourinary system. EENT: No signs and/or symptoms were reported regarding the EENT system. Derm: No signs and/or symptoms reported regarding the dermatologic system. Musculoskeletal: No signs and/or symptoms reported regarding the musculoskeletal system. 11/24 00:26 Reassessment: Patient appears in no apparent distress at this time. No changes from ak1 previously documented assessment. Patient and/or family updated on plan of care and expected duration. Pain level reassessed. Patient is alert, oriented x 3, equal unlabored respirations, skin warm/dry/pink. 01:05 Reassessment: Pt requested cough medication. Discussed with Chetan WILLIS. Pt given Phenergan fc with Codeine and quickly vomited it up. Chetan Notified. Vital Signs: 11/23 22:20 BP 125 / 77; Pulse 96; Resp 24; Temp 100.4(O); Pulse Ox 98% on R/A; Weight 70.76 kg fc (R); Height 5 ft. 3 in. (160.02 cm) (R); Pain 12/26; 11/24 00:30 BP 105 / 71; Pulse 86; Resp 18; Temp 100(O); Pulse Ox 98% on R/A; ak1 11/23 22:20 Body Mass Index 27.63 (70.76 kg, 160.02 cm) ED Course: 11/23 22:14 Patient arrived in ED. am2 22:14 Nelson Jacobson MD is Private Physician. am2 22:20 Arm band placed on Patient placed in an exam room, on a stretcher. fc 22:30 Chetan Henriquez PA is PHCP. jr8 22:30 Alvino Mckinley MD is Attending Physician. jr8 22:31 Triage completed. fc 22:32 Patient has correct armband on for positive identification. Placed in gown. Bed in low fc position. Call light in reach. Side rails up X 1. groundwater monitoring technician on. Pulse ox on. NIBP on. 22:32 No provider procedures requiring assistance completed. Patient maintains SpO2 fc saturation greater than 95% on room air. 22:47 Aliyah Marley, RN is Primary Nurse. ak1 23:09 Influenza Screen (a \\T\\ B) Sent. ak1 23:10 XRAY Chest Pa And Lat (2 Views) Sent. ak1 23:12 Patient moved to radiology via wheelchair. kw 23:12 X-ray completed. Patient tolerated procedure well. kw 23:12 Patient moved back from radiology. kw 23:13 XRAY Chest Pa And Lat (2 Views) In Process Unspecified. EDMS 11/24 00:41 Nelson Jacobson MD is Referral Physician. jr8 01:11 Patient did not have IV access during this emergency room visit. ak1 Administered Medications: 11/23 23:19 Drug: Ibuprofen 800 mg Route: PO; ak1 11/24 00:16 Follow up: Response: No adverse reaction ak1 00:16 Drug: LevaQUIN 750 mg Route: PO; ak1 00:16 Follow up: Response: No adverse reaction ak1 01:00 Drug: Phenergan-Codeine Liquid (6.25mg - 10mg / 5mL) 10 ml Route: PO; fc 01:04 Follow up: Response: Other; pt vomitted within a few minutes of taking fc Intake: Outcome: 00:41 Discharge ordered by . jr8 01:11 Discharged to home ambulatory, with family. ak1 01:11 Condition: stable 01:11 Discharge instructions given to patient, family, Instructed on discharge instructions, follow up and referral plans. no drinking with medication, no driving heavy equipment, medication usage, Demonstrated understanding of instructions, follow-up care, medications, Prescriptions given X 2. 01:11 Patient left the ED. ak1 Signatures: Dispatcher [employer] EDMS Preethi Mayen, RN RN Kristan Donovan Josh, PA PA jr8 Aliyah Marley RN RN ak1 Marium Fernandez am2
[2017-11-24] MEDS ORDERED: PROMETH/COD 6.25/10MG SYRUP 5ML ONE (01:04)
[2017-11-24 01:15] VITALS: O2SAT 98
[2017-11-24 01:16] VITALS: BP 105/71; TEMP 100
--- NOTE | 2017-11-24 08:03 | RAD REPORT ---
EXAM DESCRIPTION: Peg Sutton (2 Views)11/23/2017 11:14 pm CLINICAL HISTORY: Cough COMPARISON: 2016 FINDINGS: The lungs appear clear of acute infiltrate. The heart is normal size IMPRESSION: No acute abnormalities displayed
--- NOTE | 2017-11-24 09:10 | EKG ---
Test Date: 2017-11-23 Test Time: 23:21:51 Inhalation Therapy Teacher: RUDI MEASUREMENT RESULTS: Intervals: Rate: 89 FL: 106 QRSD: 78 QT: 348 QTc: 423 [place]: P: 20 FL: 106 QRS: 21 T: 21 INTERPRETIVE STATEMENTS: Sinus rhythm with short FL Otherwise normal ECG Compared to ECG 11/21/2017 01:10:10 Short FL interval now present Sinus tachycardia no longer present ST (T wave) deviation no longer present Electronically Signed On 11-24-17 09:09:42 CDT by Eber Connors
== END 2017-11-24 01:11 | disposition home or self-care (01) ==
LOC: ER 22:12
DX: J20.9 Acute bronchitis, unspecified (principal); J06.9 Acute upper respiratory infection, unspecified; Z88.8 Allergy status to other drugs, medicaments and biological substances
CPT/HCPCS: 71046; 81003; 81015; 87086; 87088; 87804; 93005; 99285

== ENCOUNTER 2018-01-22 19:43 | Emergency (ER) | payer BC ==
[2018-01-22] MEDS ORDERED: METHYLPREDNISOLONE 125 MG INJ ONE (20:43)
[2018-01-22] MEDS ORDERED: hydrOXYzine HCl 25 MG TAB ONE (20:43)
[2018-01-22] MEDS ORDERED: NA CHLORIDE 0.9% 1,000 ML ONE (20:44)
[2018-01-22] MEDS ORDERED: FENTANYL CITR 100 MCG/2 ML ONE (21:11)
--- NOTE | 2018-01-22 21:56 | RAD REPORT ---
EXAM DESCRIPTION: RAD - Wrist Right 3 View - 01/22/2018 8:59 pm CLINICAL HISTORY: Right wrist pain status post injury FINDINGS: No fracture or dislocation is seen. If the patient continues to have symptoms to suggest a n occult fracture then a followup plain film series in 7 days would be recommended.
--- NOTE | 2018-01-22 22:02 | ER ---
Nurse's Notes [facility] Name: Marisa Baker Age: 57 yrs Sex: Female : 1960 Arrival Date: 01/22/2018 Time: 19:44 Bed 19 Private MD: Diagnosis: Contusion of right wrist;Bee allergy status Presentation: 01/22 19:49 Presenting complaint: Patient states: Reports multiple wasp stings to right lower leg aj just [employer]. Also reports pain and swelling to right hand after falling when running away from the wasps. Transition of care: patient was not received from another setting of care. Onset: The symptoms/episode began/occurred acutely. Anaphylaxis evaluation, no signs or symptoms of anaphylaxis were noted. Onset of symptoms was January 22, 2018. Risk Assessment: Do you want to hurt yourself or someone else? Patient reports no desire to harm self or others. Initial Sepsis Screen: Does the patient meet any 2 criteria? No. Patient's initial sepsis screen is negative. Does the patient have a suspected source of infection? No. Patient's initial sepsis screen is negative. Care prior to arrival: None. 19:49 Method Of Arrival: Wheelchair aj 19:49 Acuity: YESSI 2 aj Triage Assessment: 19:51 General: Appears in no apparent distress. comfortable, Behavior is calm, cooperative, aj appropriate for age. Pain: Complains of pain in right ankle, right Achilles, right heel, medial aspect of right foot, anterior aspect of right ankle and dorsum of right foot. Neuro: Level of Consciousness is awake, alert, obeys commands, Oriented to person, place, time, situation, Appropriate for age. Respiratory: Airway is patent Respiratory effort is even, unlabored, Respiratory pattern is regular, symmetrical. Derm: Skin is intact, is healthy with good turgor, Skin is pink, warm \\T\\ dry. normal. Injury Description: Bite sustained to lateral aspect of right calf, right ankle, lateral aspect of right foot, right power, anterior aspect of right ankle and dorsum of right foot caused by a hornet. Historical: - Allergies: 19:51 diphenhydramine HCl; irritability; aj - PMHx: 19:51 "small blood clot somewhere"; CVA; aj - PSHx: 19:51 Cholecystectomy; ; Hysterectomy; Tonsillectomy; aj - Immunization history:: Adult Immunizations up to date. - Social history:: Smoking status: Patient/guardian denies using tobacco. - Ebola Screening: : Patient negative for fever greater than or equal to 101.5 degrees Fahrenheit, and additional compatible Ebola Virus Disease symptoms Patient denies exposure to infectious person Patient denies travel to an Ebola-affected area in the 21 days before illness onset No symptoms or risks identified at this time. Screenin:26 Abuse screen: Denies threats or abuse. Nutritional screening: No deficits noted. jd3 Tuberculosis screening: No symptoms or risk factors identified. Fall Risk Ambulatory Aid- None/Bed Rest/Nurse Assist (0 pts). Gait- Normal/Bed Rest/Wheelchair (0 pts) Mental Status- Oriented to own ability (0 pts). Total Obrien Fall Scale indicates No Risk (0-24 pts). Assessment: 20:22 General: Appears uncomfortable, Behavior is cooperative, anxious. Pain: Complains of jd3 pain in right forearm and right leg and right ankle Quality of pain is described as burning, sharp, shooting. Neuro: Neuro: Level of Consciousness is awake, alert, obeys commands, Oriented to person, place, time, situation, Appropriate for age. Cardiovascular: Heart tones S1 S2 present Capillary refill < 3 seconds Patient's skin is warm and dry. Respiratory: Airway is patent Respiratory effort is even, unlabored, Respiratory pattern is regular, symmetrical, Breath sounds are clear bilaterally. Parent/caregiver reports the patient having chest pressure with respirations. GI: No signs and/or symptoms were reported involving the gastrointestinal system. : No signs and/or symptoms were reported regarding the genitourinary system. EENT: No signs and/or symptoms were reported regarding the EENT system. Derm: Skin is intact, Skin is dry, Skin is normal, Skin temperature is warm. Musculoskeletal: Circulation, motion, and sensation intact. Range of motion: limited in right wrist and right ankle Swelling present in right arm and right leg. Injury Description: Bite sustained to right ankle caused by a bee, is from insect. 21:07 Reassessment: Patient and/or family updated on plan of care and expected duration. Pain jd3 level reassessed. Patient is alert, oriented x 3, equal unlabored respirations, skin warm/dry/pink. pt reported continued pain, provider notified, new order received see JUL. 22:27 Reassessment: Patient appears in no apparent distress at this time. Patient and/or jd3 family updated on plan of care and expected duration. Pain level reassessed. Patient is alert, oriented x 3, equal unlabored respirations, skin warm/dry/pink. Patient states feeling better. Vital Signs: 19:51 BP 172 / 89; Pulse 78; Resp 16; Temp 97.8; Pulse Ox 96% on R/A; Weight 68.04 kg; Height aj 5 ft. 3 in. (160.02 cm); 20:27 BP 160 / 98; Pulse 71; Resp 19 S; Pulse Ox 95% on R/A; jd3 20:42 BP 168 / 93; Pulse 70; Resp 18; Pulse Ox 97% ; ms 21:09 BP 135 / 87; Pulse 64; Resp 18 S; Pulse Ox 97% on R/A; jd3 19:51 Body Mass Index 26.57 (68.04 kg, 160.02 cm) aj ED Course: 19:44 Patient arrived in ED. am2 19:50 Triage completed. aj 19:51 Arm band placed on left wrist. Patient placed in an exam room. aj 20:16 Bo Aguiar, RN is Primary Nurse. jd3 20:18 Chetan Henriquez PA is PHCP. jr8 20:18 Chance Kumar MD is Attending Physician. jr8 20:26 Patient has correct armband on for positive identification. Bed in low position. Call jd3 light in reach. Side rails up X 1. Adult w/ patient. 20:50 Inserted saline lock: 20 gauge in left antecubital area, using aseptic technique. jd3 20:54 X-ray completed. Portable x-ray completed in exam room. Patient tolerated procedure az well. 20:58 XRAY Wrist RIGHT 3 view In Process Unspecified. EDMS 22:25 No provider procedures requiring assistance completed. IV discontinued, intact, jd3 bleeding controlled, No redness/swelling at site. Pressure dressing applied. Administered Medications: 20:49 Drug: Atarax 50 mg Route: PO; jd3 22:01 Follow up: Response: No adverse reaction jd3 20:49 Drug: NS 0.9% 1000 ml Route: IV; Rate: 1 bolus; Site: left antecubital; jd3 22:01 Follow up: Response: No adverse reaction; IV Status: Completed infusion; IV Intake: jd3 1000ml 20:50 Drug: SOLU-Medrol 125 mg Route: IVP; Site: left antecubital; jd3 21:50 Follow up: Response: No adverse reaction jd3 21:08 Drug: fentaNYL (PF) 50 mcg Route: IVP; Site: left antecubital; jd3 22:02 Follow up: Response: No adverse reaction jd3 22:06 Drug: fentaNYL (PF) 50 mcg Route: IVP; Site: left antecubital; jd3 22:28 Follow up: Response: No adverse reaction jd3 Intake: 22:01 IV: 1000ml; Total: 1000ml. jd3 Outcome: 22:01 Discharge ordered by . jr8 22:27 Discharged to home ambulatory, with family. jd3 22:27 Condition: stable 22:27 Discharge instructions given to patient, family, Instructed on discharge instructions, follow up and referral plans. medication usage, Demonstrated understanding of instructions, follow-up care, medications, Prescriptions given X 3. 22:28 Patient left the ED. jd3 Signatures: Dispatcher [employer] EDMarium Tang, RN RN Jessica Saab ms, Josh, LAZARO WILLIS jr8 Marium Fernandez Jonathon, RN RN jd3 Louise Aleman Corrections: (The following items were deleted from the chart) 21:11 21:09 Reassessment: Patient and/or family updated on plan of care and expected jd3 duration. Pain level reassessed. Patient is alert, oriented x 3, equal unlabored respirations, skin warm/dry/pink. jd3
--- NOTE | 2018-01-22 22:02 | EDPHYS ---
Physician Documentation [facility] Name: Marisa Baker Age: 57 yrs Sex: Female : 1960 Arrival Date: 01/22/2018 Time: 19:44 Bed 19 Private MD: ED Physician Chance Kumar HPI: 01/22 21:16 This 57 yrs old Female presents to ER via Wheelchair with complaints of Bee jr8 Sting, Hand Pain. 21:16 Patient stated that she had multiple bee stings to legs and arms. Fell hurting wrist jr8 from trying to get away from the bees . Severity of symptoms: At their worst the symptoms were moderate in the emergency department the symptoms are unchanged. The patient has not experienced similar symptoms in the past. The patient has not recently seen a physician. Historical: - Allergies: 19:51 diphenhydramine HCl; irritability; aj - PMHx: 19:51 "small blood clot somewhere"; CVA; aj - PSHx: 19:51 Cholecystectomy; ; Hysterectomy; Tonsillectomy; aj - Immunization history:: Adult Immunizations up to date. - Social history:: Smoking status: Patient/guardian denies using tobacco. - Ebola Screening: : Patient negative for fever greater than or equal to 101.5 degrees Fahrenheit, and additional compatible Ebola Virus Disease symptoms Patient denies exposure to infectious person Patient denies travel to an Ebola-affected area in the 21 days before illness onset No symptoms or risks identified at this time. ROS: 21:16 Eyes: Negative for injury, pain, redness, and discharge, ENT: Negative for injury, jr8 pain, and discharge, Neck: Negative for injury, pain, and swelling, Cardiovascular: Negative for chest pain, palpitations, and edema, Respiratory: Negative for shortness of breath, cough, wheezing, and pleuritic chest pain, Abdomen/GI: Negative for abdominal pain, nausea, vomiting, diarrhea, and constipation, Back: Negative for injury and pain, Skin: Negative for injury, rash, and discoloration, Neuro: Negative for headache, weakness, numbness, tingling, and seizure. 21:16 MS/extremity: Positive for decreased range of motion, pain, tenderness, of the right wrist. Exam: 21:26 Head/Face: Normocephalic, atraumatic. Eyes: Pupils equal round and reactive to light, jr8 extra-ocular motions intact. Lids and lashes normal. Conjunctiva and sclera are non-icteric and not injected. Cornea within normal limits. Periorbital areas with no swelling, redness, or edema. ENT: Nares patent. No nasal discharge, no septal abnormalities noted. Tympanic membranes are normal and external auditory canals are clear. Oropharynx with no redness, swelling, or masses, exudates, or evidence of obstruction, uvula midline. Mucous membranes moist. Neck: Trachea midline, no thyromegaly or masses palpated, and no cervical lymphadenopathy. Supple, full range of motion without nuchal rigidity, or vertebral point tenderness. No Meningismus. Chest/axilla: Normal chest wall appearance and motion. Nontender with no deformity. No lesions are appreciated. Cardiovascular: Regular rate and rhythm with a normal S1 and S2. No gallops, murmurs, or rubs. Normal PMI, no JVD. No pulse deficits. Respiratory: Lungs have equal breath sounds bilaterally, clear to auscultation and percussion. No rales, rhonchi or wheezes noted. No increased work of breathing, no retractions or nasal flaring. Abdomen/GI: Soft, non-tender, with normal bowel sounds. No distension or tympany. No guarding or rebound. No evidence of tenderness throughout. Back: No spinal tenderness. No costovertebral tenderness. Full range of motion. Neuro: Awake and alert, GCS 15, oriented to person, place, time, and situation. Cranial nerves II-XII grossly intact. Motor strength 5/5 in all extremities. Sensory grossly intact. Cerebellar exam normal. Normal gait. Psych: Awake, alert, with orientation to person, place and time. Behavior, mood, and affect are within normal limits. 21:26 Musculoskeletal/extremity: Extremities: grossly normal except: noted in the right wrist: pain, tenderness, ROM: limited active range of motion, limited passive range of motion, limited active range of motion due to pain, limited passive range of motion due to pain, Circulation is intact in all extremities. Sensation intact. 21:26 Skin: Erythema from where patient was stung noted to right heel and ankle. Right upper leg, left arm . Vital Signs: 19:51 BP 172 / 89; Pulse 78; Resp 16; Temp 97.8; Pulse Ox 96% on R/A; Weight 68.04 kg; Height aj 5 ft. 3 in. (160.02 cm); 20:27 BP 160 / 98; Pulse 71; Resp 19 S; Pulse Ox 95% on R/A; jd3 20:42 BP 168 / 93; Pulse 70; Resp 18; Pulse Ox 97% ; ms 21:09 BP 135 / 87; Pulse 64; Resp 18 S; Pulse Ox 97% on R/A; jd3 19:51 Body Mass Index 26.57 (68.04 kg, 160.02 cm) Procedures: 22:00 Splinting: Splint applied to right wrist using wrist splint, applied by nurse. Examined jr8 by me, post splint application: neurovascular intact, 2+ distal pulses palpable, brisk capillary refill noted, Patient tolerated well. MDM: 20:51 Patient medically screened. jr8 22:00 Data reviewed: vital signs, nurses notes, radiologic studies, plain films, and as a jr8 result, I will discharge patient. Data interpreted: Pulse oximetry: on room air is 97 %. Interpretation: normal. Counseling: I had a detailed discussion with the patient and/or guardian regarding: the historical points, exam findings, and any diagnostic results supporting the discharge/admit diagnosis, radiology results, the need for outpatient follow up, a family practitioner, to return to the emergency department if symptoms worsen or persist or if there are any questions or concerns that arise at home. Response to treatment: the patient's symptoms have mildly improved after treatment. 01/22 20:36 Order name: XRAY Wrist RIGHT 3 view; Complete Time: 21:58 jd3 01/22 20:36 Order name: IV; Complete Time: 20:49 jd3 Administered Medications: 20:49 Drug: Atarax 50 mg Route: PO; jd3 22:01 Follow up: Response: No adverse reaction jd3 20:49 Drug: NS 0.9% 1000 ml Route: IV; Rate: 1 bolus; Site: left antecubital; jd3 22:01 Follow up: Response: No adverse reaction; IV Status: Completed infusion; IV Intake: jd3 1000ml 20:50 Drug: SOLU-Medrol 125 mg Route: IVP; Site: left antecubital; jd3 21:50 Follow up: Response: No adverse reaction jd3 21:08 Drug: fentaNYL (PF) 50 mcg Route: IVP; Site: left antecubital; jd3 22:02 Follow up: Response: No adverse reaction jd3 22:06 Drug: fentaNYL (PF) 50 mcg Route: IVP; Site: left antecubital; jd3 22:28 Follow up: Response: No adverse reaction jd3 Disposition: 01/23 02:11 Co-signature as Attending Physician, Chance Kumar MD I agree with the assessment and ps1 plan of care. Disposition: 01/22/18 22:01 Discharged to Home. Impression: Contusion of right wrist, Bee allergy status. - Condition is Stable. - Discharge Instructions: Bee, Wasp, or Hornet Sting, Adult, Wrist Pain. - Prescriptions for Hydroxyzine HCl 25 mg Oral Tablet - take 1 tablet by ORAL route every 6 hours As needed; 30 tablet. Ibuprofen 800 mg Oral Tablet - take 1 tablet by ORAL route every 12 hours As needed take with food; 20 tablet. Prednisone 20 mg Oral Tablet - take 2 tablet by ORAL route once daily for 5 days; 10 tablet. - Medication Reconciliation Form, Thank You Letter, Antibiotic Education, Prescription Opioid Use form. - Follow up: Private Physician; When: 2 - 3 days; Reason: Recheck today's complaints, Continuance of care, Re-evaluation by your physician. - Problem is new. - Symptoms have improved. Signatures: Dispatcher [employer] EDMarium Tang RN RN aj Roszak, Josh, PA PA jr8 Bo Aguiar RN RN jd3 Singer, Phillip, MD MD ps1 Corrections: (The following items were deleted from the chart) 01/22 22:28 22:01 01/22/2018 22:01 Discharged to Home. Impression: Contusion of right wrist; Bee jd3 allergy status. Condition is Stable. Forms are Medication Reconciliation Form, Thank You Letter, Antibiotic Education, Prescription Opioid Use. Follow up: Private Physician; When: 2 - 3 days; Reason: Recheck today's complaints, Continuance of care, Re-evaluation by your physician. Problem is new. Symptoms have improved. jr8
[2018-01-22 23:51] VITALS: TEMP 97.8
[2018-01-22 23:54] VITALS: O2SAT 97
[2018-01-22 23:55] VITALS: BP 135/87
== END 2018-01-22 22:28 | disposition home or self-care (01) ==
LOC: ER 19:43
DX: S60.211A Contusion of right wrist, initial encounter (principal); W19.XXXA Unspecified fall, initial encounter; W57.XXXA Bitten or stung by nonvenomous insect and other nonvenomous arthropods, initial encounter; Y93.89 Activity, other specified; Y92.9 Unspecified place or not applicable; Z91.030 Bee allergy status; Z86.73 Personal history of transient ischemic attack (TIA), and cerebral infarction without residual deficits; Z88.8 Allergy status to other drugs, medicaments and biological substances
CPT/HCPCS: 96361; 96374; 96375; 99284; J2930; J3010; J7030

== ENCOUNTER 2018-02-26 00:38 | Observation (INO) | payer BC ==
[2018-02-26] MEDS ORDERED: NA CHLORIDE 0.9% 1,000 ML ONE (01:10)
[2018-02-26] MEDS ORDERED: ASPIRIN 81 MG CHEWABLE TABLET ONE ×2 (01:10→01:29)
--- NOTE | 2018-02-26 01:19 | EDPHYS ---
Physician Documentation [facility] Name: Marisa Baker Age: 57 yrs Sex: Female : 1960 Arrival Date: 02/26/2018 Time: 00:39 Bed 6 Private MD: Nelson Jacobson B ED Physician Alvino Mckinley HPI: 02/26 01:12 This 57 yrs old Female presents to ER via Ambulatory with complaints of Neck graham Pain, <24hrs Old, Chest Pain. 01:12 The patient or guardian complains of pain. The symptoms are located on the left jaw. graham 01:12 Onset: The symptoms/episode began/occurred just prior to arrival. Context: The problem graham was sustained at home. The patient or guardian reports chest pain that is located primarily in the substernal area, anterior chest wall. Onset: just prior to arrival. The pain radiates to Associated signs and symptoms: Pertinent positives: weakness. The pain radiates to the left jaw. Modifying factors: The symptoms are alleviated by nothing. the symptoms are aggravated by nothing. Severity of symptoms: At their worst the symptoms were moderate, in the emergency department the symptoms have improved, moderately. Historical: - Allergies: 00:50 diphenhydramine HCl; irritability; aa1 - Home Meds: 00:50 None [Active]; aa1 - PMHx: 00:50 "small blood clot somewhere"; CVA; aa1 - PSHx: 00:50 Cholecystectomy; ; Hysterectomy; Tonsillectomy; aa1 - Immunization history:: Flu vaccine is not up to date. - Social history:: Smoking status: Patient/guardian denies using tobacco. - Ebola Screening: : No symptoms or risks identified at this time. ROS: 01:12 Constitutional: Negative for fever, chills, and weight loss, Eyes: Negative for injury, graham pain, redness, and discharge, ENT: Negative for injury, pain, and discharge, Neck: Negative for injury, pain, and swelling, Respiratory: Negative for shortness of breath, cough, wheezing, and pleuritic chest pain, Abdomen/GI: Negative for abdominal pain, nausea, vomiting, diarrhea, and constipation, Back: Negative for injury and pain, : Negative for injury, bleeding, discharge, and swelling, MS/Extremity: Negative for injury and deformity, Skin: Negative for injury, rash, and discoloration, Neuro: Negative for headache, weakness, numbness, tingling, and seizure, Psych: Negative for depression, anxiety, suicide ideation, homicidal ideation, and hallucinations, Allergy/Immunology: Negative for hives, rash, and allergies, Endocrine: Negative for neck swelling, polydipsia, polyuria, polyphagia, and marked weight changes, Hematologic/Lymphatic: Negative for swollen nodes, abnormal bleeding, and unusual bruising. 01:12 Cardiovascular: Positive for chest pain, of the chest. Exam: :12 Constitutional: This is a well developed, well nourished patient who is awake, alert, graham and in no acute distress. Head/Face: Normocephalic, atraumatic. Eyes: Pupils equal round and reactive to light, extra-ocular motions intact. Lids and lashes normal. Conjunctiva and sclera are non-icteric and not injected. Cornea within normal limits. Periorbital areas with no swelling, redness, or edema. ENT: Nares patent. No nasal discharge, no septal abnormalities noted. Tympanic membranes are normal and external auditory canals are clear. Oropharynx with no redness, swelling, or masses, exudates, or evidence of obstruction, uvula midline. Mucous membranes moist. Neck: Trachea midline, no thyromegaly or masses palpated, and no cervical lymphadenopathy. Supple, full range of motion without nuchal rigidity, or vertebral point tenderness. No Meningismus. Chest/axilla: Normal chest wall appearance and motion. Nontender with no deformity. No lesions are appreciated. Cardiovascular: Regular rate and rhythm with a normal S1 and S2. No gallops, murmurs, or rubs. Normal PMI, no JVD. No pulse deficits. Respiratory: Lungs have equal breath sounds bilaterally, clear to auscultation and percussion. No rales, rhonchi or wheezes noted. No increased work of breathing, no retractions or nasal flaring. Abdomen/GI: Soft, non-tender, with normal bowel sounds. No distension or tympany. No guarding or rebound. No evidence of tenderness throughout. Back: No spinal tenderness. No costovertebral tenderness. Full range of motion. Skin: Warm, dry with normal turgor. Normal color with no rashes, no lesions, and no evidence of cellulitis. MS/ Extremity: Pulses equal, no cyanosis. Neurovascular intact. Full, normal range of motion. Neuro: Awake and alert, GCS 15, oriented to person, place, time, and situation. Cranial nerves II-XII grossly intact. Motor strength 5/5 in all extremities. Sensory grossly intact. Cerebellar exam normal. Normal gait. Psych: Awake, alert, with orientation to person, place and time. Behavior, mood, and affect are within normal limits. 01:12 Musculoskeletal/extremity: DVT Exam: No signs of deep vein thrombosis. no pain, no swelling, no tenderness, negative Homans' sign noted on exam, no appreciated bluish discoloration, no erythema, no increased warmth. Vital Signs: 00:50 BP 138 / 89; Pulse 75; Resp 16; Temp 97.8; Pulse Ox 95% on R/A; Weight 72.57 kg; Height aa1 5 ft. 3 in. (160.02 cm); Pain 6/10; 01:35 BP 128 / 81; Pulse 69; Resp 15; Pulse Ox 94% on R/A; tl2 03:40 BP 101 / 58; Pulse 67; Resp 18; Pulse Ox 94% on R/A; tl2 00:50 Body Mass Index 28.34 (72.57 kg, 160.02 cm) aa1 MDM: 00:48 Patient medically screened. [facility] 01:14 Data reviewed: vital signs, nurses notes, lab test result(s), EKG, radiologic studies, graham plain films. 02/26 00:49 Order name: Basic Metabolic Panel; Complete Time: 03:53 [facility] 02/26 00:49 Order name: CBC with Diff; Complete Time: 03:53 [facility] 02/26 00:49 Order name: LFT's; Complete Time: 03:53 [facility] 02/26 00:49 Order name: Magnesium; Complete Time: 03:53 [facility] 02/26 00:49 Order name: NT PRO-BNP; Complete Time: 03:53 [facility] 02/26 00:49 Order name: PT-INR; Complete Time: 03:53 [facility] 02/26 00:49 Order name: Troponin (emerg Dept Use Only); Complete Time: 03:53 [facility] 02/26 00:49 Order name: XRAY Chest (1 view) [facility] 02/26 00:50 Order name: Lipase; Complete Time: 03:53 [facility] 10/11 01:12 Order name: CT Aorta for Dissection [facility] 02/26 04:06 Order name: Urine Microscopic Only [facility] 02/26 04:06 Order name: Urine Culture [facility] 02/26 04:06 Order name: Urine Dipstick--Ancillary (enter results) tn 02/26 04:06 Order name: Urine --Ancillary (enter results) tn 02/26 00:49 Order name: EKG; Complete Time: 00:50 [facility] 02/26 00:49 Order name: Cardiac monitoring; Complete Time: 00:54 [facility] 02/26 00:49 Order name: EKG - Nurse/Tech; Complete Time: 00:54 [facility] 02/26 00:49 Order name: IV Saline Lock; Complete Time: 00:54 [facility] 02/26 00:49 Order name: Labs collected and sent; Complete Time: 00:54 [facility] 02/26 01:18 Order name: CONS Physician Consult [facility] 02/26 01:18 Order name: Echo with Doppler [facility] 02/26 00:50 Order name: O2 Per Protocol; Complete Time: 00:54 [facility] 02/26 00:50 Order name: O2 Sat Monitoring; Complete Time: 00:54 [facility] 02/26 00:50 Order name: Urine Dipstick-Ancillary (obtain specimen); Complete Time: 04:05 [facility] Administered Medications: 01:06 Drug: NS 0.9% 1000 ml Route: IV; Rate: 125 ml/hr; Site: right antecubital; tl2 04:06 Follow up: IV Status: Infusion continued upon admission tl2 01:06 Drug: Aspirin Chewable Tablet 162 mg Route: PO; tl2 04:07 Follow up: Response: No adverse reaction tl2 01:32 Drug: Lovenox 1 mg/kg Route: Sub-Q; Site: right lower abdomen; tl2 04:07 Follow up: Response: No adverse reaction tl2 01:32 Drug: Lopressor 25 mg Route: PO; tl2 04:07 Follow up: Response: No adverse reaction tl2 01:32 Drug: morphine 2 mg Route: IVP; Site: right antecubital; tl2 02:30 Follow up: Response: No adverse reaction; Pain is decreased tl2 01:32 Drug: Zofran 4 mg Route: IVP; Site: right antecubital; tl2 02:30 Follow up: Response: No adverse reaction; Nausea is decreased tl2 01:33 Drug: Pepcid 20 mg Route: IVP; Site: right antecubital; tl2 04:08 Follow up: Response: No adverse reaction tl2 01:33 Drug: Aspirin 162 mg Route: PO; tl2 04:08 Follow up: Response: No adverse reaction tl2 04:09 Not Given (Hemodynamic Parameters): morphine 2 mg IVP once tl2 Disposition: 02/26/18 01:18 Hospitalization ordered by Mata Limon for Observation. Preliminary diagnosis are Chest pain, unspecified, Angina pectoris. - Bed requested for Telemetry/MedSurg (observation). - Status is Observation. tl2 - Condition is Stable. - Problem is new. - Symptoms have improved. UTI on Admission? No Signatures: Dispatcher [employer] EDMS Maral Be RN RN mw Kern, Alissa RN RN aa1 Alvino Mckinley MD MD cha Knox, Taylor RN RN tl2 Corrections: (The following items were deleted from the chart) 01:18 01:18 Hospitalization Ordered by Mata Limon MD for Observation. Preliminary graham diagnosis is Chest pain, unspecified. Bed requested for Telemetry/MedSurg (observation). Status is Observation. Condition is Stable. Problem is new. Symptoms have improved. UTI on Admission? No. graham :38 01:18 02/26/2018 01:18 Hospitalization Ordered by Mata Limon MD for Observation. Preliminary diagnosis is Chest pain, unspecified; Angina pectoris. Bed requested for Telemetry/MedSurg (observation). Status is Observation. Condition is Stable. Problem is new. Symptoms have improved. UTI on Admission? No. graham 04:11 01:38 02/26/2018 01:18 Hospitalization Ordered by Mata Limon MD for Observation. tl2 Preliminary diagnosis is Chest pain, unspecified; Angina pectoris. Bed requested for Telemetry/MedSurg (observation). Status is Observation. Condition is Stable. Problem is new. Symptoms have improved. UTI on Admission? No. roque
--- NOTE | 2018-02-26 01:19 | ER ---
Nurse's Notes [facility] Name: Marisa Baker Age: 57 yrs Sex: Female : 1960 Arrival Date: 02/26/2018 Time: 00:39 Bed 6 Private MD: Nelson Jacobson B Diagnosis: Chest pain, unspecified;Angina pectoris Presentation: 02/26 00:47 Presenting complaint: Patient states: CP that radiates to her L neck since yesterday. aa1 States, "It feels like a lung pain and I tried to stretch it out but it doesn't help.". Transition of care: patient was not received from another setting of care. Onset of symptoms was February 25, 2018. Risk Assessment: Do you want to hurt yourself or someone else? Patient reports no desire to harm self or others. Initial Sepsis Screen: Does the patient meet any 2 criteria? No. Patient's initial sepsis screen is negative. Does the patient have a suspected source of infection? No. Patient's initial sepsis screen is negative. Care prior to arrival: None. 00:47 Method Of Arrival: Ambulatory aa1 00:47 Acuity: YESSI 3 aa1 Triage Assessment: 00:50 General: Appears in no apparent distress. comfortable, Behavior is calm, cooperative, aa1 appropriate for age. Historical: - Allergies: 00:50 diphenhydramine HCl; irritability; aa1 - Home Meds: 00:50 None [Active]; aa1 - PMHx: 00:50 "small blood clot somewhere"; CVA; aa1 - PSHx: 00:50 Cholecystectomy; ; Hysterectomy; Tonsillectomy; aa1 - Immunization history:: Flu vaccine is not up to date. - Social history:: Smoking status: Patient/guardian denies using tobacco. - Ebola Screening: : No symptoms or risks identified at this time. Screenin:51 Abuse screen: Denies threats or abuse. Denies injuries from another. Nutritional aa1 screening: No deficits noted. Tuberculosis screening: No symptoms or risk factors identified. Fall Risk None identified. Assessment: 00:55 General: Appears in no apparent distress. uncomfortable, Behavior is calm, cooperative, tl2 appropriate for age. Pain: Complains of pain in chest Pain currently is 6 out of 10 on a pain scale. Neuro: Level of Consciousness is awake, alert, obeys commands, Oriented to person, place, time, situation. Cardiovascular: Rhythm is sinus rhythm Chest pain is described as mild, quality is pressure. Respiratory: Airway is patent Respiratory effort is even, unlabored, Respiratory pattern is regular, symmetrical, Parent/caregiver reports the patient having pain with respiration. GI: No signs and/or symptoms were reported involving the gastrointestinal system. : No signs and/or symptoms were reported regarding the genitourinary system. Derm: Skin is pink, warm \\T\\ dry. 01:35 Reassessment: Patient appears in no apparent distress at this time. Patient and/or tl2 family updated on plan of care and expected duration. Pain level reassessed. Patient is alert, oriented x 3, equal unlabored respirations, skin warm/dry/pink. 02:30 Reassessment: Patient appears in no apparent distress at this time. Patient and/or tl2 family updated on plan of care and expected duration. Pain level reassessed. pt appears to be sleeping, awaiting CT results. 04:09 Reassessment: Patient appears in no apparent distress at this time. Patient and/or tl2 family updated on plan of care and expected duration. Pain level reassessed. Patient is alert, oriented x 3, equal unlabored respirations, skin warm/dry/pink. pt stable and ready for transport to floor. Vital Signs: 00:50 BP 138 / 89; Pulse 75; Resp 16; Temp 97.8; Pulse Ox 95% on R/A; Weight 72.57 kg; Height aa1 5 ft. 3 in. (160.02 cm); Pain 6/10; 01:35 BP 128 / 81; Pulse 69; Resp 15; Pulse Ox 94% on R/A; tl2 03:40 BP 101 / 58; Pulse 67; Resp 18; Pulse Ox 94% on R/A; tl2 00:50 Body Mass Index 28.34 (72.57 kg, 160.02 cm) aa1 ED Course: 00:39 Patient arrived in ED. es 00:39 Nelson Jacobson MD is Private Physician. es 00:47 Alvino Mckinley MD is Attending Physician. graham 00:48 Triage completed. aa1 00:50 Arm band placed on right wrist. Patient placed in an exam room, on a stretcher. aa1 00:51 Patient has correct armband on for positive identification. Placed in gown. Bed in low aa1 position. Call light in reach. engine monitor on. Pulse ox on. NIBP on. Warm blanket given. 00:53 Marcelina Brown RN is Primary Nurse. tl2 00:55 Inserted saline lock: 20 gauge in right antecubital area, using aseptic technique. tl2 Blood collected. 01:02 X-ray completed. Portable x-ray completed in exam room. Patient tolerated procedure kw well. 01:02 XRAY Chest (1 view) In Process Unspecified. EDMS 01:17 Mata Limon MD is Hospitalizing Provider. [facility] 02:19 CT completed. Patient tolerated procedure well. Patient moved to CT via stretcher. Patient moved back from CT. 04:10 No provider procedures requiring assistance completed. Patient admitted, IV remains in tl2 place. Administered Medications: 01:06 Drug: NS 0.9% 1000 ml Route: IV; Rate: 125 ml/hr; Site: right antecubital; tl2 04:06 Follow up: IV Status: Infusion continued upon admission tl2 01:06 Drug: Aspirin Chewable Tablet 162 mg Route: PO; tl2 04:07 Follow up: Response: No adverse reaction tl2 01:32 Drug: Lovenox 1 mg/kg Route: Sub-Q; Site: right lower abdomen; tl2 04:07 Follow up: Response: No adverse reaction tl2 01:32 Drug: Lopressor 25 mg Route: PO; tl2 04:07 Follow up: Response: No adverse reaction tl2 01:32 Drug: morphine 2 mg Route: IVP; Site: right antecubital; tl2 02:30 Follow up: Response: No adverse reaction; Pain is decreased tl2 01:32 Drug: Zofran 4 mg Route: IVP; Site: right antecubital; tl2 02:30 Follow up: Response: No adverse reaction; Nausea is decreased tl2 01:33 Drug: Pepcid 20 mg Route: IVP; Site: right antecubital; tl2 04:08 Follow up: Response: No adverse reaction tl2 01:33 Drug: Aspirin 162 mg Route: PO; tl2 04:08 Follow up: Response: No adverse reaction tl2 04:09 Not Given (Hemodynamic Parameters): morphine 2 mg IVP once tl2 Outcome: 01:18 Decision to Hospitalize by Provider. graham 04:10 Admitted to Tele accompanied by tech, via wheelchair, room 415, with chart, Report tl2 called to AMY Yu 04:10 Condition: stable 04:10 Discharge instructions given to patient, Instructed on the need for admit. 04:11 Patient left the ED. tl2 Signatures: Dispatcher [employer] Migdalia Adkins, RN RN aa1 Alvino Mckinley MD MD cha Salyer, Hilda Calderon, Kristan Hernandez Taylor, RN RN tl2
[2018-02-26 01:22] LABS: Absolute Lymphocytes (CBC) 2.8 K/uL (0.7-4.9); Absolute Monocytes 0.8 K/uL (0.1-1.3); Absolute Neutrophil 3.6 K/uL (1.8-8.0); Basophils % 1.1 % (0-1.3); Eosinophils % 5.4 % (0-4.4); Hematocrit 39.7 % (36.0-45.0); Lymphocytes % 36.2 % (15.3-44.8); MCH 30.3 pg (27.0-35.0); MCV 86.4 fL (80-100); MPV 9.6 fL (7.6-11.3); Monocytes % 10.7 % (3.3-12.3); RBC Red Blood Cell Count 4.59 M/uL (3.86-4.86)
[2018-02-26 01:23] LABS: Protime INR 1.03
[2018-02-26] MEDS ORDERED: MORPHINE 4 MG/ML SYR ONE (01:29)
[2018-02-26] MEDS ORDERED: ENOXAPARIN 80 MG/0.8 ML SQ ONE (01:30)
[2018-02-26] MEDS ORDERED: ONDANSETRON 4 MG/2 ML VIAL ONE (01:30)
[2018-02-26] MEDS ORDERED: FAMOTIDINE 20 MG/2 ML VIAL IV ONE (01:30)
[2018-02-26] MEDS ORDERED: METOPROLOL TAR 25 MG TAB ONE (01:30)
[2018-02-26] MEDS ORDERED: ACETAMINOPHEN 500 MG TAB PO PRN (01:35)
[2018-02-26 01:38] LABS: ALT/SGPT 36 U/L (12-78); AST/SGOT 25 U/L (15-37); Albumin 3.7 g/dL (3.4-5.0); Alkaline Phosphatase 107 U/L (45-117); BUN Blood Urea Nitrogen 11 mg/dL (7-18); Bicarbonate 26 mmol/L (21-32); Bilirubin Direct 0.1 mg/dL (0-0.2); Bilirubin Total 0.4 mg/dL (0.2-1.0); Glucose Level 109 mg/dL (74-106); Lipase 231 U/L (73-393); Magnesium 2.2 mg/dL (1.8-2.4); NT PRO-BNP 26 pg/mL (<125); Potassium 3.6 mmol/L (3.5-5.1); Protein, Total 7.2 g/dL (6.4-8.2); Sodium Level 143 mmol/L (136-145); Troponin (Emerg Dept Use Only) < 0.02 ng/mL (0.0-0.045)
[2018-02-26 04:16] VITALS: O2SAT 94
[2018-02-26 04:28] VITALS: BMI 28.3
[2018-02-26 04:28] LABS: Urine Blood NEGATIVE (NEG); Urine Glucose NEGATIVE (NEG); Urine Protein NEGATIVE (NEG); Urine Specific Gravity <1.005 (1.005-1.030)
[2018-02-26 05:31] LABS: Urine Bacteria <20 /HPF (<20); Urine Culture Reflex Order NOT NEEDED; Urine RBC <5 /HPF (NONE SEEN)
[2018-02-26] MEDS: MORPHINE 4 MG/ML SYR IV PRN ×2 (05:31→12:14)
[2018-02-26 06:10] LABS: HDL Cholesterol 41 mg/dL (40-60); LDL Cholesterol, Calculated 96 (<130); Troponin I < 0.02 ng/mL (0.0-0.045)
--- NOTE | 2018-02-26 07:52 | EKG ---
Test Date: 2018-02-26 Test Time: 00:51:22 [employer] Developer: GWENDOLYN MEASUREMENT RESULTS: Intervals: Rate: 74 VT: 158 QRSD: 86 QT: 420 QTc: 466 [place]: P: 58 VT: 158 QRS: 6 T: 29 INTERPRETIVE STATEMENTS: Normal sinus rhythm Possible Left atrial enlargement Borderline ECG Compared to ECG 11/23/2017 23:21:51 Short VT interval no longer present Electronically Signed On 02-26-18 07:51:52 CDT by Eber Connors
[2018-02-26] MEDS ORDERED: METOPROLOL TAR 50 MG TAB PO SCH (09:00)
[2018-02-26] MEDS ORDERED: ENOXAPARIN 40 MG/0.4 ML SQ SCH (09:00)
[2018-02-26] MEDS ORDERED: ASPIRIN EC 81 MG TAB PO SCH (09:00)
--- NOTE | 2018-02-26 10:17 | RAD REPORT ---
EXAM DESCRIPTION: CT - Angio Aorta For Dissection - 02/26/2018 7:45 am CLINICAL HISTORY: . Chest pain/abdominal pain COMPARISON: 2013 CT TECHNIQUE: Computed tomography angiography of the chest, abdomen pelvis were obtained. 100 cc Isovue 370 was administered intravenously. Coronal and sagittal reconstruction were performed.Preliminary r eport was generated by virtual radiologic and reviewed prior to dictation MIP 3D reconstruction was performed All CT scans are performed using dose optimization technique as appropriate and may include automated exposure control or mA/KV adjustment according to patient size. FINDINGS: An aortic dissection is not seen. An aortic aneurysm is not displayed. A bovine aorta is seen The celiac, SMA and SANDOR are patent . The common hepatic artery arises from the aorta. A lung consolidation is not present. A pericardial effusion is not seen. A pleural effusion is not n oted. Centrilobular emphysema is seen. The liver,spleen, pancreas adrenals kidneys demonstrate no significant abnormality. The appendix is normal. There no evidence diverticulitis. No ascites is noted. IMPRESSION: Negative for an aortic dissection.
--- NOTE | 2018-02-26 10:18 | RAD REPORT ---
EXAM DESCRIPTION: Peg Single View02/26/2018 1:04 am CLINICAL HISTORY: Chest pain COMPARISON: November 2017 FINDINGS: The lungs are mildly hyperaerated. The lungs appear clear of acute infiltrate. The heart is borderline enlarged IMPRESSION: No acute abnormalities displayed
--- NOTE | 2018-02-26 10:38 | P.HP ---
Certification for Inpatient Patient admitted to: Observation With expected LOS: <2 Midnights Patient will require the following post-hospital care: None Practitioner: I am a practitioner with admitting privileges, knowledge of patient current condition, hospital course, and medical plan of care. Services: Services provided to patient in accordance with Admission requirements found in Title 42 Section 412.3 of the Code of Federal Regulations Patient History Date of Service: 02/26/18 Reason for admission: CP r/o ACS History of Present Illness: Patient is a 57-year-old female who came to the hospital with chest pain. Pain was mainly in the sternal region. Patient was diaphoretic and lightheaded. Patient was also short of breath. Patient has been in the hospital about 4 years ago with similar complaints. According the patient's she was also admitted 2 years ago and was diagnosed with a stroke. According to the patient, the CVA Her last cardiac workup was 4 years ago when she had a stress test and echocardiogram which were completely unremarkable. At this time will go ahead and place patient in for observation. Patient was admitted to the hospital for further evaluation. Allergies adhesive tape Allergy (Verified 02/26/18 05:17) Itching/Hives/Rash diphenhydramine HCl [From Benadryl Allergy] Adverse Reaction (Intermediate, Verified 04/24/15 01:23) Unknown Home Medications: NK [No Home Meds] 02/26/18 - Past Medical/Surgical History Has patient received pneumonia vaccine in the past: No Diabetic: No -: stroke -: PNA -: hypotension -: hysterectomy -: x 3 -: deanna -: hemrrhoidectomy -: tonsil & adenoid removal -: eyelids lifted -: bunionectomy -: R shoulder sx - Family History Father Family History: Reviewed- Non-Contributory Notes: alcoholic Mother Medical History: Hypertension, Cancer Sister Medical History: Hypertension, Seizures Notes: Yisel Salinas HTN Brother Medical History: Hypertension - Social History Smoking Status: Former smoker Alcohol use: No CD- Drugs: No Place of Residence: Home Review of Systems 10-point ROS is otherwise unremarkable Physical Examination - Vital Signs Temperature: 97.6 F Blood Pressure: 112/70 Pulse: 55 Respirations: 18 Pulse Ox (%): 94 - Physical Exam General: Alert, In no apparent distress, Oriented x3 HEENT: Atraumatic, PERRLA, Mucous membr. moist/pink, EOMI, Sclerae nonicteric Neck: Supple, 2+ carotid pulse no bruit, No LAD, Without JVD or thyroid abnormality Respiratory: Clear to auscultation bilaterally, Normal air movement Cardiovascular: Regular rate/rhythm, Normal S1 S2, No murmurs Gastrointestinal: Normal bowel sounds, Soft and benign, Non-distended, No tenderness Musculoskeletal: No clubbing, No swelling, No tenderness Integumentary: No rashes Neurological: Normal gait, Normal speech, Normal strength at 5/5 x4 extr, Normal tone, Sensation intact, Cranial nerves 3-12 intact, Normal affect Lymphatics: No axilla or inguinal lymphadenopathy - Studies Laboratory Data (last 24 hrs) 02/26/18 00:55: PT 12.1, INR 1.03 02/26/18 00:55: WBC 7.7, Hgb 13.9, Hct 39.7, Plt Count 214 02/26/18 00:55: Sodium 143, Potassium 3.6, BUN 11, Creatinine 0.90, Glucose 109 H, Magnesium 2.2, Total Bilirubin 0.4, AST 25, ALT 36, Alkaline Phosphatase 107 , Lipase 231 Assessment & Plan - Problems (Diagnosis) (1) Chest pain, rule out acute myocardial infarction Current Visit: Yes Status: Acute (2) Hypertension Onset Date: 04/24/15 Current Visit: No Status: Acute - Plan 1. Serial troponins and EKG 2. Cardiology consultation 3. Echocardiogram and inpatient stress test(pending cardiology evaluation) 4. Anti-platelet therapy, anti coagulation, beta-sarahi, statin, and O2 as needed 5. IV morphine for pain 6. Nitro p.r.n. Discharge Plan: Home Plan to discharge in: 48 Hours - Advance Directives Does patient have a Living Will: No Does patient have a Durable POA for Healthcare: No - Code Status/Comfort Care Code Status Assessed: Yes Code Status: Full Code Critical Care: No Time Spent Managing PTS Care (In Minutes): 50
--- NOTE | 2018-02-26 10:44 | RAD REPORT ---
EXAM DESCRIPTION: US - CP - 02/26/2018 10:12 am CLINICAL HISTORY: CVA, history of carotid dissection COMPARISON: None. TECHNIQUE: Real-time sonographic evaluation of both carotid systems was performed. Ramires scale and Do ppler interrogation were performed with waveform tracing bilaterally. FINDINGS: Normal high resistance waveforms are noted in both external carotid arteries. The common c arotid arteries and internal carotid arteries show normal low resistance waveforms. Calcified plaquing changes are present at the proximal aspect of each internal carotid artery. On vis ual inspection no significant luminal narrowing. Peak systolic and end diastolic velocity values and the ICA/CCA ratios are in the non-hemodynamically significant range. Antegrade flow seen in both vertebral arteries. Velocity values and ratios were recorded and are retained in the patient's imaging records. IMPRESSION: Calcified plaquing change at each internal carotid artery origin. Visually no significan t luminal narrowing. Velocity values and ICA/ CCA ratios also support no significant degree of stenosis.
[2018-02-26] MEDS ORDERED: REGADENOSON 0.4 MG/5 ML SYR IV ONE (10:47)
--- NOTE | 2018-02-26 11:04 | ECHO ---
HEIGHT: 5 ft 3 in WEIGHT: 160 lb 0 oz DATE OF STUDY: 02/26/[address]: 2-DIMENSIONAL: YES M.MODE: YES DOPPLER: YES COLOR FLOW: YES TDS: YES PORTABLE: NO DEFINITY: NO BUBBLE STUDY: NO DIAGNOSIS: CHEST PAIN CARDIAC HISTORY: CATHERIZATION: NO SURGERY: NO PROSTHETIC VALVE: NO PACEMAKER: NO MEASUREMENTS (cm) DIASTOLIC (NORMALS) SYSTOLIC (NORMALS) IVSd 1.0 (0.6-1.2) LA Diam 2.9 (1.9-4.0) LVEF 49% LVIDd 3.9 (3.5-5.7) LVIDs 3.0 (2.0-3.5) %FS 24% LVPWd 1.0 (0.6-1.2) Ao Diam 2.9 (2.0-3.7) 2 DIMENSIONAL ASSESSMENT: RIGHT ATRIUM: NORMAL LEFT ATRIUM: NORMAL RIGHT VENTRICLE: NORMAL LEFT VENTRICLE: NORMAL TRICUSPID VALVE: NORMAL MITRAL VALVE: NORMAL PULMONIC VALVE: NORMAL AORTIC VALVE: NORMAL PERICARDIAL EFFUSION: NONE AORTIC ROOT: NORMAL LEFT VENTRICULAR WALL MOTION: NORMAL. DOPPLER/COLOR FLOW: TRACE TRICUSPID REGURGITATION. NORMAL RIGHT VENTRICULAR SYSTOLIC PRESSURE. COMMENTS: NORMAL 2D ECHOCARDIOGRAM. TRACE TRICUSPID REGURGITATION. TECHNOLOGIST: LISHA BERRY RDCS
[2018-02-26] MEDS ORDERED: TRAMADOL HCL 50 MG TAB PO PRN (12:26)
--- NOTE | 2018-02-26 13:06 | RAD REPORT ---
EXAM DESCRIPTION: NM - Rest Stress Cardiac Imaging - 02/26/2018 12:16 pm CLINICAL HISTORY: Chest pain COMPARISON: March 2014 TECHNIQUE: The patient was administered 10.9 mCi of Tc 99m Sestamibi prior to resting SPECT imaging of the heart. The patient was then administered 30.1 mCi of Tc 99m Sestamibi following exercise or ph armacologic stress. Multiplanar SPECT images were reviewed. FINDINGS: The end diastolic volume is 73 ml, the end systolic volume is 24 ml, and the ejection frac tion is 67 %. Volumes and ejection fraction are not substantially different from the comparison. No stress-induced ischemic changes are identifiable. There is a small fixed defect anterior wall near the apex that does not change between rest and stress imaging. No other measurable fixed defect. Mi nimal attenuation artifacts seen inferolateral wall. IMPRESSION: No stress-induced ischemia. The small fixed defect anterior wall near the apex. This was probably present on the prior study. Thi s could be a small focus of scarring rather than breast attenuation artifact. Ventricular volumes and ejection fraction are well within normal limits and not substantially differe nt from 2013.
--- NOTE | 2018-02-26 13:41 | TREADPHA ---
DX: CHEST PAIN Date of Study: 02/26/18 Ht: 5 3 Wt: 160 lb 0 oz Consulting Physician: ERIC MEDICATIONS: TYLENOL, ASPIRIN, LOPRESSOR, LOVENOX HISTORY: 57 YEAR OLD FEMALE WITH COMPLAINTS OF CHEST PAIN. MEDICAL HISTORY OF CEREBRAL VASCULAR ACCIDENT. FORMER SMOKER PHYSICIAL EXAMINATION: RESTING B.P.: 121/74 RESTING H.R.: 61 RESTING EKG: NORMAL PROTOCOL: LEXISCAN EXERCISE TIME: 3:30 B.P. AT PEAK STRESS: 101/64 IMPRESSION: LEXISCAN INJECTED, CARDIOLITE INJECTED, PER PROTOCOL, SEE NUCLEAR MEDICINE REPORT. NO SUPRA VENTRICULAR TACHYCARDIA. NO VENTRICULAR TACHYCARDIA. NO PREMATURE VENTRICULAR COMPLEXES. DENIED CHEST PAIN. NON DIAGNOSTIC EKG WITH LEXISCAN STRESS.
--- NOTE | 2018-02-26 13:46 | CON ---
CARDIOLOGY CONSULT Additional Attending Physician: Mata Limon MD Chief Complaint: Chest pain. History Of Present Illness: The patient was perfectly healthy until she had chest pain, it was onset suddenly as sharp stabbing pain with sweating. That was more than 12 hours ago. She has been in [facility] where EKGs and enzymes remained normal. All of her rhythm strips remained normal. She do es not smoke. She quit more than 7 years ago. She takes no medications. Apparently 2 years ago, yusef salazar was told she had a stroke. She came to the hospital, was given tPA. She does not remember her sym ptoms. She was later transferred to [facility], where a variety of tests were done. At the end of i t all, she was not told to take aspirin or have any followup and she has not. She has had no residua l neurological deficit. I wonder if the diagnosis of stroke was actually mistaken. We do not have a ny of the records from [facility] in [place] from that visit. The patient does not have exertional i ntolerance. No prior history of coronary heart disease. Three years ago a stress test was normal. Physical Examination: Vital Signs: 5 feet 3 inches, 160 pounds. HEENT: Normal carotids, no bruit. Lungs: Clear. Cardiac: Normal. Abdomen: Soft. Extremities: Normal. All of her pulses are normal, radial, dorsalis pedis, and posterior tibial. N o evidence of abdominal aneurysm. No femoral bruits. Laboratory Data: Her electrocardiogram shows mild left atrial abnormality, otherwise it is normal. Plan: I would recommend we get a pharmacologic stress test, echo, carotid Doppler, and see if there is anything we should be worried about, but at present, I do not think this is any kind of vascular d isease at all. She has a history of gallbladder surgery, appendectomy, and hysterectomy. [facility]. She has had shoulder surgeries, and she has had a questionable stroke, treated apparently with tPA. So, we will try and figure out what it is exactly that is certainly more suspicious of thi s being musculoskeletal or perhaps esophageal or GI in nature. YUSEF/ELSY Voice ID: [id number] Report ID: [id number]
[2018-02-26 18:11] VITALS: BP 96/60; TEMP 98.4
== END 2018-02-26 18:18 | disposition home or self-care (01) ==
LOC: ER 00:38 → ERHOLD 01:15 → 4TH 03:51
PROVIDERS: ADMIT Hospitalist; ATTEND Hospitalist
DX: R07.9 Chest pain, unspecified (principal); I10 Essential (primary) hypertension; Z86.73 Personal history of transient ischemic attack (TIA), and cerebral infarction without residual deficits
CPT/HCPCS: 36415; 71045; 71275; 74175; 78452; 80048; 80061; 80076; 81003; 81015; 81025; 83690; 83735; 83880; 84484; 85025; 85610; 87086; 87088; 93005; 93017; 93306; 93880; 96361; 96372; 96374; 96375; 99285; A9500; G0378; J1650; J2405; J2785; J7030; Q9967

== ENCOUNTER 2018-06-23 18:49 | Observation (INO) | payer BC ==
[2018-06-23] MEDS ORDERED: NA CHLORIDE 0.9% 1,000 ML ONE (20:11)
[2018-06-23] MEDS ORDERED: ASPIRIN 81 MG CHEWABLE TABLET ONE (20:11)
[2018-06-23] MEDS ORDERED: FAMOTIDINE 20 MG/2 ML VIAL IV ONE (20:12)
[2018-06-23 20:20] LABS: Absolute Lymphocytes (CBC) 2.7 K/uL (0.7-4.9); Absolute Monocytes 0.7 K/uL (0.1-1.3); Absolute Neutrophil 3.1 K/uL (1.8-8.0); Basophils % 1.1 % (0-1.3); Eosinophils % 6.1 % (0-4.4); Hematocrit 40.2 % (36.0-45.0); MPV 9.5 fL (7.6-11.3); Monocytes % 9.7 % (3.3-12.3); RBC Red Blood Cell Count 4.56 M/uL (3.86-4.86)
--- NOTE | 2018-06-23 20:20 | ER ---
Nurse's Notes [facility] Name: Marisa Baker Age: 57 yrs Sex: Female : 1960 Arrival Date: 06/23/2018 Time: 18:50 Bed 7 Private MD: Nelson Jacobson B Diagnosis: Chest pain on breathing;Other chest pain-atypical Presentation: 06/23 18:56 Presenting complaint: Patient states: Sternal chest pain that started yesterday with aj SOB. Patient reports pain is worse when she exhales. Transition of care: patient was not received from another setting of care. Onset of symptoms was June 23, 2018. Risk Assessment: Do you want to hurt yourself or someone else? Patient reports no desire to harm self or others. Initial Sepsis Screen: Does the patient meet any 2 criteria? No. Patient's initial sepsis screen is negative. Does the patient have a suspected source of infection? No. Patient's initial sepsis screen is negative. Care prior to arrival: None. 18:56 Method Of Arrival: Ambulatory 18:56 Acuity: YESSI 3 aj Triage Assessment: 18:57 General: Appears in no apparent distress. comfortable, Behavior is calm, cooperative, aj appropriate for age. Pain: Complains of pain in chest. Neuro: Level of Consciousness is awake, alert, obeys commands, Oriented to person, place, time, situation, Appropriate for age. Cardiovascular: Reports chest pain, shortness of breath, Capillary refill < 3 seconds in bilateral fingers Patient's skin is warm and dry. Respiratory: Airway is patent Respiratory effort is even, unlabored, Respiratory pattern is regular, symmetrical. Derm: Skin is intact, is healthy with good turgor, Skin is pink, warm \\T\\ dry. normal. Historical: - Allergies: 18:57 diphenhydramine HCl; irritability; aj - Home Meds: 18:57 None [Active]; aj - PMHx: 18:57 CVA; "small blood clot somewhere"; aj - PSHx: 18:57 Cholecystectomy; ; Hysterectomy; Tonsillectomy; aj - Immunization history:: Adult Immunizations up to date. - Social history:: Smoking status: Patient/guardian denies using tobacco. - Ebola Screening: : Patient negative for fever greater than or equal to 101.5 degrees Fahrenheit, and additional compatible Ebola Virus Disease symptoms Patient denies exposure to infectious person Patient denies travel to an Ebola-affected area in the 21 days before illness onset No symptoms or risks identified at this time. - Family history:: not pertinent. Screenin:20 Abuse screen: Denies threats or abuse. Denies injuries from another. Nutritional aa1 screening: No deficits noted. Tuberculosis screening: No symptoms or risk factors identified. Fall Risk None identified. Assessment: 19:20 General: Appears in no apparent distress. comfortable, Behavior is calm, cooperative, aa1 appropriate for age. Pain: Complains of pain in chest Pain radiates to back Pain began 1 day ago. Is intermittent, Aggravated by laying flat. Neuro: Level of Consciousness is awake, alert, obeys commands, Oriented to person, place, time, situation, Moves all extremities. Full function Gait is steady, Speech is normal. Cardiovascular: Reports chest pain, Denies diaphoresis, nausea, palpitations, shortness of breath, Heart tones S1 S2 present Capillary refill < 3 seconds Clubbing of nail beds is absent JVD is absent Patient's skin is warm and dry. Rhythm is regular Chest pain episodes are intermittent. Respiratory: Reports pain with respiration Airway is patent Respiratory effort is even, unlabored, Respiratory pattern is regular, symmetrical, Breath sounds are clear bilaterally. GI: No signs and/or symptoms were reported involving the gastrointestinal system. : No signs and/or symptoms were reported regarding the genitourinary system. EENT: No signs and/or symptoms were reported regarding the EENT system. Derm: Skin is intact, is healthy with good turgor, Skin is pink, warm \\T\\ dry. Musculoskeletal: Circulation, motion, and sensation intact. Capillary refill < 3 seconds, Range of motion: intact in all extremities. 20:30 Reassessment: Patient appears in no apparent distress at this time. Patient and/or aa1 family updated on plan of care and expected duration. Pain level reassessed. Patient is alert, oriented x 3, equal unlabored respirations, skin warm/dry/pink. Awaiting lab results. 21:55 Reassessment: Patient appears in no apparent distress at this time. Patient and/or aa1 family updated on plan of care and expected duration. Pain level reassessed. Patient is alert, oriented x 3, equal unlabored respirations, skin warm/dry/pink. Attempted to call report to 4th floor, was told nurse will call back shortly. 22:33 Reassessment: Patient appears in no apparent distress at this time. Patient is alert, aa1 oriented x 3, equal unlabored respirations, skin warm/dry/pink. Report given to Gita on 4th floor. Vital Signs: 18:57 BP 152 / 95; Pulse 78; Resp 20; Temp 98.6; Pulse Ox 97% on R/A; Weight 72.57 kg; Height aj 5 ft. 2 in. (157.48 cm); 20:00 BP 129 / 83; Pulse 64; Resp 18; Pulse Ox 95% on R/A; aa1 21:00 BP 138 / 90; Pulse 66; Resp 18; Pulse Ox 95% on R/A; Pain 6/10; aa1 21:51 BP 145 / 96; Pulse 61; Resp 18; Temp 98.7; Pulse Ox 96% on R/A; Pain 6/10; aa1 22:30 BP 139 / 96; Pulse 69; Resp 18; Temp 98.5; Pulse Ox 95% on R/A; Pain 4/10; aa1 18:57 Body Mass Index 29.26 (72.57 kg, 157.48 cm) ED Course: 18:50 Patient arrived in ED. rg4 18:51 Nelson Jacobson MD is Private Physician. 4 18:57 Triage completed. 18:57 Arm band placed on left wrist. Patient placed in an exam room. 19:11 Alvino Mckinley MD is Attending Physician. [facility] 19:37 Migdalia Melendez, RN is Primary Nurse. aa1 19:40 Patient has correct armband on for positive identification. Bed in low position. Call aa1 light in reach. monitor and storage bin tender on. Pulse ox on. NIBP on. Warm blanket given. 19:40 Patient maintains SpO2 saturation greater than 95% on room air. aa1 19:45 EKG done, by ED staff, reviewed by Alvino Mckinley MD. aa1 20:00 Initial lab(s) drawn, by nd, sent to lab. Inserted saline lock: 20 gauge in right aa1 antecubital area, using aseptic technique. Blood collected. 20:19 Jayson Weaver MD is Hospitalizing Provider. [facility] 20:30 XRAY Chest (1 view) In Process Unspecified. EDMS 20:[address] vm2 20:53 CT Aorta for Dissection: dissection and pe In Process Unspecified. EDMS 20:53 CT completed. Patient tolerated procedure well. Patient moved back from CT. vm2 21:49 No provider procedures requiring assistance completed. Patient admitted, IV remains in aa1 place. Administered Medications: 20:09 Drug: Aspirin 162 mg Route: PO; aa1 21:11 Follow up: Response: No adverse reaction; No change in condition aa1 20:10 Drug: Pepcid 20 mg Route: IVP; Site: right antecubital; aa1 21:10 Follow up: Response: No adverse reaction; No change in condition aa1 20:10 Drug: NS 0.9% 1000 ml Route: IV; Rate: 1 bolus; Site: right antecubital; aa1 21:00 Follow up: IV Status: Completed infusion aa1 21:36 CANCELLED (Duplicate Order): Rocephin - (cefTRIAXone) 1 grams IVPB once over 30 mins; aa1 (mix in 50 mL NS) 21:43 Drug: Lovenox 1 mg/kg Route: Sub-Q; Site: right lower abdomen; aa1 21:43 Drug: Rocephin 1 grams Route: IV; Rate: calculated rate; Site: right antecubital; aa1 21:48 Follow up: IV Status: Completed infusion aa1 Outcome: 20:20 Decision to Hospitalize by Provider. graham 22:55 Admitted to Tele accompanied by tech, family with patient, via wheelchair, room 406, aa1 with chart, Report called to AMY Pelayo 22:55 Condition: stable 22:55 Discharge instructions given to patient, significant other, Instructed on the need for admit, Demonstrated understanding of instructions. 23:01 Patient left the ED. aa1 Signatures: Dispatcher [employer] Migdalia Adkins RN RN aa1 Marium Roberson RN RN aj Anderson, Corey, MD MD cha Garcia, Rubi Nida Maradiaga [facility]
--- NOTE | 2018-06-23 20:21 | EDPHYS ---
Physician Documentation [facility] Name: Marisa Baker Age: 57 yrs Sex: Female : 1960 Arrival Date: 06/23/2018 Time: 18:50 Bed 7 Private MD: Nelson Jacobson B ED Physician Alvino Mckinley HPI: 06/23 20:00 This 57 yrs old Female presents to ER via Ambulatory with complaints of Chest graham Pain, Back Pain. 20:00 The patient or guardian reports chest pain that is located primarily in the substernal graham area, epigastric area. Onset: 1 day(s) ago. The pain radiates to back. Associated signs and symptoms: Pertinent positives: shortness of breath. The chest pain is described as stabbing. Modifying factors: The symptoms are alleviated by remaining still, the symptoms are aggravated by deep breath. Severity of pain: At its worst the pain was mild in the emergency department the pain is unchanged. Historical: - Allergies: 18:57 diphenhydramine HCl; irritability; aj - Home Meds: 18:57 None [Active]; aj - PMHx: 18:57 CVA; "small blood clot somewhere"; aj - PSHx: 18:57 Cholecystectomy; ; Hysterectomy; Tonsillectomy; aj - Immunization history:: Adult Immunizations up to date. - Social history:: Smoking status: Patient/guardian denies using tobacco. - Ebola Screening: : Patient negative for fever greater than or equal to 101.5 degrees Fahrenheit, and additional compatible Ebola Virus Disease symptoms Patient denies exposure to infectious person Patient denies travel to an Ebola-affected area in the 21 days before illness onset No symptoms or risks identified at this time. - Family history:: not pertinent. ROS: 20:00 Constitutional: Negative for fever, chills, and weight loss, Eyes: Negative for injury, graham pain, redness, and discharge, ENT: Negative for injury, pain, and discharge, Neck: Negative for injury, pain, and swelling, Respiratory: Negative for shortness of breath, cough, wheezing, and pleuritic chest pain, Abdomen/GI: Negative for abdominal pain, nausea, vomiting, diarrhea, and constipation, Back: Negative for injury and pain, : Negative for injury, bleeding, discharge, and swelling, MS/Extremity: Negative for injury and deformity, Skin: Negative for injury, rash, and discoloration, Neuro: Negative for headache, weakness, numbness, tingling, and seizure, Psych: Negative for depression, anxiety, suicide ideation, homicidal ideation, and hallucinations, Allergy/Immunology: Negative for hives, rash, and allergies, Endocrine: Negative for neck swelling, polydipsia, polyuria, polyphagia, and marked weight changes, Hematologic/Lymphatic: Negative for swollen nodes, abnormal bleeding, and unusual bruising. 20:00 Cardiovascular: Positive for chest pain, with cough. Exam: 20:00 Constitutional: This is a well developed, well nourished patient who is awake, alert, graham and in no acute distress. Head/Face: Normocephalic, atraumatic. Eyes: Pupils equal round and reactive to light, extra-ocular motions intact. Lids and lashes normal. Conjunctiva and sclera are non-icteric and not injected. Cornea within normal limits. Periorbital areas with no swelling, redness, or edema. ENT: Nares patent. No nasal discharge, no septal abnormalities noted. Tympanic membranes are normal and external auditory canals are clear. Oropharynx with no redness, swelling, or masses, exudates, or evidence of obstruction, uvula midline. Mucous membranes moist. Neck: Trachea midline, no thyromegaly or masses palpated, and no cervical lymphadenopathy. Supple, full range of motion without nuchal rigidity, or vertebral point tenderness. No Meningismus. Chest/axilla: Normal chest wall appearance and motion. Nontender with no deformity. No lesions are appreciated. Cardiovascular: Regular rate and rhythm with a normal S1 and S2. No gallops, murmurs, or rubs. Normal PMI, no JVD. No pulse deficits. Respiratory: Lungs have equal breath sounds bilaterally, clear to auscultation and percussion. No rales, rhonchi or wheezes noted. No increased work of breathing, no retractions or nasal flaring. Abdomen/GI: Soft, non-tender, with normal bowel sounds. No distension or tympany. No guarding or rebound. No evidence of tenderness throughout. Back: No spinal tenderness. No costovertebral tenderness. Full range of motion. Female : Normal external genitalia. Skin: Warm, dry with normal turgor. Normal color with no rashes, no lesions, and no evidence of cellulitis. MS/ Extremity: Pulses equal, no cyanosis. Neurovascular intact. Full, normal range of motion. Neuro: Awake and alert, GCS 15, oriented to person, place, time, and situation. Cranial nerves II-XII grossly intact. Motor strength 5/5 in all extremities. Sensory grossly intact. Cerebellar exam normal. Normal gait. Psych: Awake, alert, with orientation to person, place and time. Behavior, mood, and affect are within normal limits. 20:00 Musculoskeletal/extremity: DVT Exam: No signs of deep vein thrombosis. no pain, no swelling, no tenderness, negative Homans' sign noted on exam, no appreciated bluish discoloration, no erythema, no increased warmth. Vital Signs: 18:57 BP 152 / 95; Pulse 78; Resp 20; Temp 98.6; Pulse Ox 97% on R/A; Weight 72.57 kg; Height aj 5 ft. 2 in. (157.48 cm); 20:00 BP 129 / 83; Pulse 64; Resp 18; Pulse Ox 95% on R/A; aa1 21:00 BP 138 / 90; Pulse 66; Resp 18; Pulse Ox 95% on R/A; Pain 6/10; aa1 21:51 BP 145 / 96; Pulse 61; Resp 18; Temp 98.7; Pulse Ox 96% on R/A; Pain 6/10; aa1 22:30 BP 139 / 96; Pulse 69; Resp 18; Temp 98.5; Pulse Ox 95% on R/A; Pain 4/10; aa1 18:57 Body Mass Index 29.26 (72.57 kg, 157.48 cm) MDM: 19:12 Patient medically screened. [facility] 20:02 Data reviewed: vital signs, nurses notes, lab test result(s), EKG, radiologic studies, [facility] CT scan, plain films. 06/23 19:56 Order name: Basic Metabolic Panel; Complete Time: 21:11 [facility] 06/23 19:56 Order name: CBC with Diff; Complete Time: 20:34 [facility] 06/23 19:56 Order name: LFT's; Complete Time: 21:11 [facility] 06/23 19:56 Order name: Magnesium; Complete Time: 21:11 [facility] 06/23 19:56 Order name: NT PRO-BNP; Complete Time: 21:11 [facility] 06/23 19:56 Order name: PT-INR; Complete Time: 21:11 [facility] 06/23 19:56 Order name: Troponin (emerg Dept Use Only); Complete Time: 21:11 [facility] 06/23 19:56 Order name: XRAY Chest (1 view); Complete Time: 21:11 [facility] 06/23 19:56 Order name: Lipase; Complete Time: 21:11 [facility] 06/23 19:56 Order name: CT Aorta for Dissection: dissection and pe; Complete Time: 21:11 [facility] 06/23 19:56 Order name: Urine Culture [facility] 06/23 20:16 Order name: Urine Dipstick--Ancillary (enter results); Complete Time: 20:34 [facility] 06/23 20:16 Order name: Urine --Ancillary (enter results); Complete Time: 20:34 [facility] 06/23 20:36 Order name: Blood Culture Adult (2) [facility] 06/23 19:56 Order name: EKG; Complete Time: 19:57 [facility] 06/23 19:56 Order name: Cardiac monitoring; Complete Time: 19:58 [facility] 06/23 19:56 Order name: EKG - Nurse/Tech; Complete Time: 19:58 [facility] 06/23 19:56 Order name: IV Saline Lock; Complete Time: 19:58 [facility] 06/23 19:56 Order name: Labs collected and sent; Complete Time: 19:58 [facility] 06/23 19:56 Order name: O2 Per Protocol; Complete Time: 19:58 [facility] 06/23 19:56 Order name: O2 Sat Monitoring; Complete Time: 19:58 [facility] 06/23 19:56 Order name: Urine Dipstick-Ancillary (obtain specimen); Complete Time: 20:15 [facility] Administered Medications: 20:09 Drug: Aspirin 162 mg Route: PO; aa1 21:11 Follow up: Response: No adverse reaction; No change in condition aa1 20:10 Drug: Pepcid 20 mg Route: IVP; Site: right antecubital; aa1 21:10 Follow up: Response: No adverse reaction; No change in condition aa1 20:10 Drug: NS 0.9% 1000 ml Route: IV; Rate: 1 bolus; Site: right antecubital; aa1 21:00 Follow up: IV Status: Completed infusion aa1 21:36 CANCELLED (Duplicate Order): Rocephin - (cefTRIAXone) 1 grams IVPB once over 30 mins; aa1 (mix in 50 mL NS) 21:43 Drug: Lovenox 1 mg/kg Route: Sub-Q; Site: right lower abdomen; aa1 21:43 Drug: Rocephin 1 grams Route: IV; Rate: calculated rate; Site: right antecubital; aa1 21:48 Follow up: IV Status: Completed infusion aa1 Disposition: 06/23/18 20:20 Hospitalization ordered by Jayson Weaver for Observation. Preliminary diagnosis are Chest pain on breathing, Other chest pain - atypical. - Bed requested for Telemetry/MedSurg (observation). - Status is Observation. aa1 - Condition is Fair. - Problem is new. - Symptoms have improved. UTI on Admission? Yes Signatures: Dispatcher [employer] EDMS Maral Be RN AMY Migdalia Melendez RN RN aa1 Marium Roberson RN Alvino Alicea MD MD [facility] Corrections: (The following items were deleted from the chart) 20:03 19:58 Abdomen Limited+US.RAD.BRZ ordered. [facility] EDFL 20:54 20:20 Hospitalization Ordered by Jayson Weaver MD for Observation. Preliminary diagnosis is Chest pain on breathing; Other chest pain - atypical. Bed requested for Telemetry/MedSurg (observation). Status is Observation. Condition is Fair. Problem is new. Symptoms have improved. UTI on Admission? Yes. [facility] 21:36 21:13 Rocephin - (cefTRIAXone) 1 grams IVPB once over 30 mins; (mix in 50 mL NS) aa1 ordered. [facility] 23:01 20:54 06/23/2018 20:20 Hospitalization Ordered by Jayson Weaver MD for Observation. aa1 Preliminary diagnosis is Chest pain on breathing; Other chest pain - atypical. Bed requested for Telemetry/MedSurg (observation). Status is Observation. Condition is Fair. Problem is new. Symptoms have improved. UTI on Admission? Yes. mw
[2018-06-23 20:28] LABS: Urine Blood NEGATIVE (NEG); Urine Glucose NEGATIVE (NEG); Urine Protein NEGATIVE (NEG); Urine Specific Gravity 1.025 (1.005-1.030)
[2018-06-23 20:37] LABS: ALT/SGPT 69 U/L (12-78); AST/SGOT 30 U/L (15-37); Albumin 3.6 g/dL (3.4-5.0); Alkaline Phosphatase 105 U/L (45-117); BUN Blood Urea Nitrogen 15 mg/dL (7-18); Bicarbonate 27 mmol/L (21-32); Bilirubin Direct < 0.1 mg/dL (0-0.2); Bilirubin Total 0.4 mg/dL (0.2-1.0); Glucose Level 92 mg/dL (74-106); Lipase 188 U/L (73-393); Magnesium 2.1 mg/dL (1.8-2.4); NT PRO-BNP 71 pg/mL (<125); Potassium 3.8 mmol/L (3.5-5.1); Sodium Level 144 mmol/L (136-145); Troponin (Emerg Dept Use Only) < 0.02 ng/mL (0.0-0.045)
[2018-06-23 20:41] LABS: Protime INR 0.97
--- NOTE | 2018-06-23 20:42 | RAD REPORT ---
EXAM DESCRIPTION: RAD - Chest Single View - 06/23/2018 8:29 pm CLINICAL HISTORY: CHEST PAIN Chest pain. COMPARISON: Chest Single View dated 02/26/2018; Chest Pa And Lat (2 Views) dated 11/23/2017; Chest Sin gle View dated 11/21/2017; Chest Single View dated 10/21/2016 FINDINGS: Portable technique limits examination quality. The lungs are underinflated with mild linear atelectasis suspected left lung base. The heart is corinne l in size. No displaced fractures. IMPRESSION: No acute intrathoracic process suspected.
--- NOTE | 2018-06-23 21:01 | P.HP ---
Certification for Inpatient Patient admitted to: Observation With expected LOS: <2 Midnights Practitioner: I am a practitioner with admitting privileges, knowledge of patient current condition, hospital course, and medical plan of care. Services: Services provided to patient in accordance with Admission requirements found in Title 42 Section 412.3 of the Code of Federal Regulations Patient History Date of Service: 06/23/18 Reason for admission: chest pain History of Present Illness: Ms Baker is a 57 years old woman with history of CVA, admitted to the hospital in 03/05 due to chest pain, she was evaluated at that time by cardiology team, work up with NM stress test revealed fix deffect in anterior area, ECHO showed EF 49% without WMA, no further cardiac work up was recommended. At this time, the patient came to ED complaining of chest pain, retrosternal, radiated to the back, constant, starting early this morning, and still going on, about 6/10, worse with exhalation. She denied nausea or vomiting, diaphoresis episode. She denied cough. Lab work remarkable for normal WBC, trop I within normal limits, EKG without ST-T abnormalities. CXR no acute infiltrates. Allergies adhesive tape Allergy (Verified 02/26/18 05:17) Itching/Hives/Rash diphenhydramine HCl [From Benadryl Allergy] Adverse Reaction (Intermediate, Verified 04/24/15 01:23) Unknown Home medications list reviewed: Yes Home Medications: NK [No Home Meds] 02/26/18 - Past Medical/Surgical History Diabetic: No -: stroke -: PNA -: hypotension -: hysterectomy -: x 3 -: deanna -: hemrrhoidectomy -: tonsil & adenoid removal -: eyelids lifted -: bunionectomy -: R shoulder sx - Family History Father Notes: alcoholic Mother -: Hypertension, Cancer Sister -: Hypertension, Seizures Notes: Yisel Salinas HTN Brother -: Hypertension - Social History Smoking Status: Former smoker Alcohol use: No CD- Drugs: No Caffeine use: Yes Place of Residence: Home Review of Systems 10-point ROS is otherwise unremarkable Physical Examination - Physical Exam General: Alert, In no apparent distress HEENT: Atraumatic, PERRLA, Mucous membr. moist/pink, EOMI, Sclerae nonicteric Neck: Supple, 2+ carotid pulse no bruit, No LAD, Without JVD or thyroid abnormality Respiratory: Clear to auscultation bilaterally, Normal air movement Cardiovascular: Regular rate/rhythm, Normal S1 S2 Gastrointestinal: Normal bowel sounds, No tenderness Musculoskeletal: Tenderness (Pain reproducible in sternal area, with palpation. ) Integumentary: No rashes Neurological: Normal gait, Normal speech, Normal strength at 5/5 x4 extr, Normal tone, Normal affect Lymphatics: No axilla or inguinal lymphadenopathy - Studies Laboratory Data (last 24 hrs) 06/23/18 20:00: PT 11.5, INR 0.97 06/23/18 20:00: WBC 6.9, Hgb 13.5, Hct 40.2, Plt Count 178 06/23/18 20:00: Sodium 144, Potassium 3.8, BUN 15, Creatinine 0.73, Glucose 92, Magnesium 2.1, Total Bilirubin 0.4, AST 30, ALT 69, Alkaline Phosphatase 105, Lipase 188 Assessment and Plan - Problems (Diagnosis) (1) History of CVA (cerebrovascular accident) Current Visit: Yes Status: Acute (2) Chest pain Onset Date: 04/24/15 Current Visit: No Status: Acute Qualifiers: Chest pain type: chest pain on breathing Qualified Code(s): R07.1 - Chest pain on breathing; R07.81 - Pleurodynia - Plan Will admit the patient due to chest pain in order to R/O ACS. So far, initial trop I is normal, EKG without acute ST-T abnormalities. Will order serial cardiac enzymes and EKG. Consult Cardiology team. - Advance Directives Does patient have a Living Will: No Does patient have a Durable POA for Healthcare: No - Code Status/Comfort Care Code Status Assessed: Yes Code Status: Full Code
--- NOTE | 2018-06-23 21:04 | RAD REPORT ---
EXAM DESCRIPTION: CT - Angio Aorta For Dissection - 06/23/2018 8:53 pm CLINICAL HISTORY: Chest pain radiating to the back. Dissection;Pain COMPARISON: Angio Aorta For Dissection dated 02/26/2018; CTANGIO AORTA FOR DISSECTION dated 03/23/20 14; CTANGIO AORTA FOR DISSECTION dated 11/15/2007 TECHNIQUE: CT angiography of the aorta was performed with MIPs. All CT scans are performed using dose optimization technique as appropriate and may include automated exposure control or mA/KV adjustment according to patient size. FINDINGS: A left aortic arch is present with bovine branching pattern of the great vessels.No acute aortic finding is seen such as aneurysm, penetrating ulcer or dissection. The celiac axis, SMA, SANDOR and renal arteries are widely patent. No evidence of pulmonary embolism. Diffuse emphysema is present throughout the lungs. No focal infiltrate detected. The liver demonstrates no focal mass or biliary dilatation.The spleen, pancreas, adrenal glands and k idneys are within normal limits for arterial phase imaging.11 mm benign-appearing renal cyst on the r ight. Cholecystectomy clips. No bowel obstruction, free fluid or abscess.Normal appendix. Sigmoid diverticulosis is present withou t diverticulitis.No pathologic enlarged lymphadenopathy identified. No fracture or worrisome bone lesion seen. IMPRESSION: No acute aortic finding is demonstrated. Diffuse COPD. Sigmoid diverticulosis without diverticulitis.
[2018-06-23] MEDS ORDERED: CEFTRIAXONE/SWI 1gm 1 GM/10 ML SYR ONE (21:49)
[2018-06-23] MEDS ORDERED: ENOXAPARIN 80 MG/0.8 ML SQ ONE (21:49)
[2018-06-23] MEDS ORDERED: TRAMADOL HCL 50 MG TAB ONE (22:04)
[2018-06-23] MEDS ORDERED: TRAMADOL HCL 50 MG TAB PO PRN (23:11)
[2018-06-24 00:21] LABS: Absolute Lymphocytes (CBC) 2.9 K/uL (0.7-4.9); Absolute Monocytes 0.6 K/uL (0.1-1.3); Basophils % 0.8 % (0-1.3); Eosinophils % 4.5 % (0-4.4); Hematocrit 37.8 % (36.0-45.0); Lymphocytes % 36.6 % (15.3-44.8); MPV 9.8 fL (7.6-11.3); Monocytes % 7.6 % (3.3-12.3); RBC Red Blood Cell Count 4.32 M/uL (3.86-4.86)
[2018-06-24 00:37] LABS: BUN Blood Urea Nitrogen 14 mg/dL (7-18); Bicarbonate 28 mmol/L (21-32); Glucose Level 93 mg/dL (74-106); Potassium 3.8 mmol/L (3.5-5.1); Sodium Level 144 mmol/L (136-145); Troponin I < 0.02 ng/mL (0.0-0.045)
[2018-06-24] MEDS ORDERED: KETOROLAC 30 MG/ML INJ IV PRN (00:43)
[2018-06-24 02:49] VITALS: BMI 30.6
--- NOTE | 2018-06-24 06:59 | EKG ---
Test Date: 2018-06-23 Test Time: 19:43:08 Aged Or Disabled Carer: KEVIN MEASUREMENT RESULTS: Intervals: Rate: 68 FL: 126 QRSD: 92 QT: 416 QTc: 442 Crawford: P: 4 FL: 126 QRS: 12 T: 12 INTERPRETIVE STATEMENTS: Normal sinus rhythm Normal ECG Compared to ECG 02/26/2018 00:51:22 No significant changes Electronically Signed On 06-24-18 06:51:47 DEPUTY OF COUNTER INTELLIGENCE by Eber Connors
[2018-06-24] MEDS ORDERED: REGADENOSON 0.4 MG/5 ML SYR IV ONE (08:06)
[2018-06-24] MEDS ORDERED: ENOXAPARIN 40 MG/0.4 ML SQ SCH (09:00)
[2018-06-24] MEDS ORDERED: COLCHICINE 0.6 MG TAB PO SCH (09:00)
[2018-06-24] MEDS ORDERED: ASPIRIN EC 81 MG TAB PO SCH (09:00)
--- NOTE | 2018-06-24 10:59 | ECHO ---
HEIGHT: 5 ft 3 in WEIGHT: 172 lb 11.2 oz DATE OF STUDY: 06/24/[address]: Eber Connors MD 2-DIMENSIONAL: YES M.MODE: YES DOPPLER: YES COLOR FLOW: YES TDS: NO PORTABLE: NO DEFINITY: NO BUBBLE STUDY: NO DIAGNOSIS: CHEST PAIN CARDIAC HISTORY: CATHERIZATION: NO SURGERY: NO PROSTHETIC VALVE: NO PACEMAKER: NO MEASUREMENTS (cm) DIASTOLIC (NORMALS) SYSTOLIC (NORMALS) IVSd 1.0 (0.6-1.2) LA Diam 3.4 (1.9-4.0) LVEF 68% LVIDd 3.6 (3.5-5.7) LVIDs 2.3 (2.0-3.5) %FS 37% LVPWd 1.0 (0.6-1.2) Ao Diam 3.2 (2.0-3.7) 2 DIMENSIONAL ASSESSMENT: RIGHT ATRIUM: NORMAL LEFT ATRIUM: NORMAL RIGHT VENTRICLE: NORMAL LEFT VENTRICLE: NORMAL TRICUSPID VALVE: NORMAL MITRAL VALVE: NORMAL PULMONIC VALVE: NORMAL AORTIC VALVE: NORMAL PERICARDIAL EFFUSION: NONE AORTIC ROOT: NORMAL LEFT VENTRICULAR WALL MOTION: NORMAL. DOPPLER/COLOR FLOW: MILD TRICUSPID REGURGITATION. NORMAL RIGHT VENTRICULAR SYSTOLIC PRESSURE. COMMENTS: TECHNOLOGIST: SHONA HAJI
[2018-06-24 11:10] VITALS: O2SAT 92
--- NOTE | 2018-06-24 12:17 | CON ---
Additional Attending Physician: Dr. Rivas. Chief Complaint: Chest pain. History Of Present Illness: Chest pain started yesterday. It has been constant. It gets a little w orse when she takes a deep breath and first starts to exhale, but it is constant otherwise. She has had no fevers, chills, or sweats. Three years ago, she had a stroke. She was a cigarette smoker unt il then and then quit. She does not have diabetes or dyslipidemia or hypertension. She takes no med ications other than aspirin. No history of myocardial infarction or any vascular interventions. Physical Examination: General: 5 feet 3 inches, 172 pounds. Obese, alert, oriented, pleasant, not in distress. Lungs: Clear. Cardiac: Normal. There is no friction rub. Abdomen: Soft. Extremities: Normal. No cyanosis, clubbing, or edema. Distal pulses are normal. Diagnostic Data: Her electrocardiogram does not show an injury pattern. It is completely normal. Impression: The patient is having pleuritic chest pain, does not seem to be pericarditis. We will t ry colchicine, do a stress test and echo, and see what else we learn. A CT for dissection was negative, but she has nonspecific pleurisy . YUSEF/ELSY Voice ID: [id number] Report ID: [id number]
--- NOTE | 2018-06-24 14:02 | RAD REPORT ---
EXAM DESCRIPTION: NM - Rest Stress Cardiac Imaging - 06/24/2018 1:47 pm CLINICAL HISTORY: CP Chest pain. COMPARISON: Rest Stress Cardiac Imaging dated 02/26/2018 TECHNIQUE: The patient was administered approximately 10mCi of Tc 99m Sestamibi prior to resting SPE CT imaging of the heart. The patient was then administered approximately 30 mCi of Tc 99m Sestamibi f ollowing exercise or pharmacologic stress. Multiplanar SPECT images were reviewed. FINDINGS: No stress induced ischemic defect is seen to suggest stress induced ischemia. No fixed def ect is seen to suggest hibernating myocardium or scarred myocardium. The end diastolic volume is 84 ml, the end systolic volume is 23 ml, and the ejection fraction is 72 %. IMPRESSION: No stress induced ischemia.
[2018-06-24 14:07] VITALS: BP 173/78; TEMP 99
--- NOTE | 2018-06-24 15:20 | P.SSS ---
Patient History Date of Service: 06/24/18 Reason for admission: chest pain History of Present Illness: from H and P Ms Baker is a 57 years old woman with history of CVA, admitted to the hospital in 03/05 due to chest pain, she was evaluated at that time by cardiology team, work up with NM stress test revealed fix defect in anterior area, ECHO showed EF 49% without WMA, no further cardiac work up was recommended. At this time, the patient came to ED complaining of chest pain, retrosternal, radiated to the back, constant, starting early this morning, and still going on, about 6/10, worse with exhalation. She denied nausea or vomiting, diaphoresis episode. She denied cough. Lab work remarkable for normal WBC, trop I within normal limits, EKG without ST-T abnormalities. CXR no acute infiltrates. Allergies adhesive tape Allergy (Verified 02/26/18 05:17) Itching/Hives/Rash diphenhydramine HCl [From Benadryl Allergy] Adverse Reaction (Intermediate, Verified 04/24/15 01:23) Unknown Home Medications: Colchicine [Colcrys *] 0.6 mg PO BID #30 tab 06/24/18 - Past Medical/Surgical History Has patient received pneumonia vaccine in the past: No Diabetic: No -: stroke -: PNA -: hypotension -: hysterectomy -: x 3 -: deanna -: hemrrhoidectomy -: tonsil & adenoid removal -: eyelids lifted -: bunionectomy -: R shoulder sx - Family History Father Notes: alcoholic Mother -: Hypertension, Cancer Sister -: Hypertension, Seizures Notes: Yisel Salinas HTN Brother -: Hypertension - Social History Smoking Status: Former smoker Alcohol use: No CD- Drugs: No Caffeine use: No Place of Residence: Home Review of Systems 10-point ROS is otherwise unremarkable Gastrointestinal: Unremarkable (Painful swallowing) Physical Examination - Vital Signs Temperature: 99.0 F Blood Pressure: 173/78 Pulse: 85 Respirations: 20 Pulse Ox (%): 94 - Physical Exam General: Alert, In no apparent distress, Oriented x3, Obese HEENT: Atraumatic, PERRLA, Mucous membr. moist/pink, EOMI, Sclerae nonicteric Neck: Supple, 2+ carotid pulse no bruit, No LAD, Without JVD or thyroid abnormality Respiratory: Clear to auscultation bilaterally, Normal air movement Cardiovascular: No edema, Normal pulses, Regular rate/rhythm, Normal S1 S2 Gastrointestinal: Normal bowel sounds, Soft and benign, Non-distended, No tenderness Musculoskeletal: No clubbing, No tenderness Integumentary: No rashes Neurological: Normal gait, Normal speech, Normal strength at 5/5 x4 extr, Normal tone, Normal affect - Studies Laboratory Data (last 24 hrs) 06/23/18 20:00: PT 11.5, INR 0.97 06/23/18 20:00: WBC 6.9, Hgb 13.5, Hct 40.2, Plt Count 178 06/23/18 20:00: Sodium 144, Potassium 3.8, BUN 15, Creatinine 0.73, Glucose 92, Magnesium 2.1, Total Bilirubin 0.4, AST 30, ALT 69, Alkaline Phosphatase 105, Lipase 188 Imagings Data: Cardiac stress tests shows no stress-induced ischemia - Diagnosis (Problem(s)) (1) Chest pain Onset Date: 06/24/18 Current Visit: Yes Status: Acute Qualifiers: Chest pain type: other chest pain Qualified Code(s): R07.89 - Other chest pain; R07.8 - Other chest pain (2) Diverticulosis Current Visit: Yes Status: Acute Qualifiers: Diverticulosis site: diverticulosis of large intestine Diverticulosis bleeding: diverticulosis without bleeding Qualified Code(s): K57.30 - Diverticulosis of large intestine without perforation or abscess without bleeding (3) Renal cyst, right Current Visit: Yes Status: Acute Plan: 11 mm benign (4) Obesity (BMI 30.0-34.9) Current Visit: Yes Status: Acute (5) History of CVA (cerebrovascular accident) Current Visit: Yes Status: Chronic Plan: . History of CVA. No residual deficits Treatment Summary: Patient is a 57-year-old female with past medical history of CVA with no residual deficits former smoker who comes in with chest pain. Patient was admitted to rule out ACS. Her cardiac enzymes were negative x3. Cardiac stress test was ordered by Dr. Connors cardiology and did not show any stress- induced ischemia. Her echocardiogram showed ejection fraction of 68% no wall motion abnormality. Patient was given trial of colchicine for possible pleuritic pain she does have a history of lung collapsed at the age of 28. Patient did not report much improvement with the medication. Upon further questioning patient did report painful swallowing which is been ongoing for several months. Mainly with solids. Patient has seen GI doctor Ciro in the past. I spoke with Dr. valle and he recommended outpatient follow up immediately after discharge from the hospital. He did not recommend any emergent intervention at this time. Patient is able to tolerate her diet. No nausea or vomiting. Patient's symptoms improved. She was counseled regarding her incidental findings of diverticulosis and right renal cyst. Patient voiced understanding. at the bedside. Patient was then discharged home in a stable condition to follow up with GI upon discharge - Disposition Disposition: ROUTINE DISCHARGE Condition: FAIR Consultations: Dr. Connors cardiology Patient Discharge Instructions: f/up w PCP in 2-3 days. f/up w manager program management Dr. Connors in 4 weeks. f/up w GI Dr. Vlale upon discharge. Return to ER for worsening condition Diet: AHA Activity: Ad carlos
--- NOTE | 2018-06-24 17:29 | TREADPHA ---
DX: CHEST PAIN Date of Study: 06/24/18 Ht: 5 3 Wt: 172 lb 11.2 oz Consulting Physician: ERIC MEDICATIONS: ASPIRIN, COLCRYS, LOVENOX, TORADOL, ULTRAM. HISTORY: 57 YEAR FEMALE, COMPLAINTS OF CHEST PAIN. HISTORY: STROKE IN 2014, HYPOTENSION, LUNG COLLAPSE, PNA. PHYSICIAL EXAMINATION: RESTING B.P.: 152/95 RESTING H.R.: 64 RESTING EKG: NORMAL PROTOCOL: LEXISCAN EXERCISE TIME: 3:30 B.P. AT PEAK STRESS: 136/76 IMPRESSION: LEXISCAN INJECTED, FOLLOWED BY CARDIOLITE PER PROTOCOL, SEE NUCLEAR MEDICINE REPORT. NO SUPRAVENTRICULAR TACHYCARDIA. NO VENTRICULAR TACHYCARDIA. NO PREMATURE ATRIAL COMPLEXS. NO PREMATURE VENTRICULAR COMPLEXS. PATIENT REPORTED CHEST PAIN PRIOR TO PROCEDURE 11/25. NO CHEST PAIN CHANGE DURING AND AFTER PROCEDURE. PATIENT REPORTED THIS BEING NO NEW CHEST PAIN. NON-DIAGNOSTIC ELECTROCARDIOGRAM WITH LEXISCAN STRESS.
== END 2018-06-24 15:15 | disposition home or self-care (01) ==
LOC: ER 18:49 → ERHOLD 20:59 → 4TH 22:35
PROVIDERS: ADMIT Internal Medicine; ATTEND Internal Medicine
DX: R07.9 Chest pain, unspecified (principal); K57.90 Diverticulosis of intestine, part unspecified, without perforation or abscess without bleeding; N28.1 Cyst of kidney, acquired; E66.9 Obesity, unspecified; Z68.30 Body mass index [BMI] 30.0-30.9, adult; Z86.73 Personal history of transient ischemic attack (TIA), and cerebral infarction without residual deficits; Z87.891 Personal history of nicotine dependence
CPT/HCPCS: 36415; 71045; 71275; 74175; 78452; 80048; 80061; 80076; 81003; 81025; 83690; 83735; 83880; 84484; 85025; 85610; 87040; 87086; 87088; 87205; 93005; 93017; 93306; 96361; 96372; 96374; 96375; 99285; A9500; G0378; J0696; J1650; J2785; J7030; Q9967

== ENCOUNTER 2018-09-12 20:59 | Emergency (ER) | payer BC ==
[2018-09-12] MEDS ORDERED: HYDROCODONE/APAP 10/325 TAB ONE (21:37)
[2018-09-12] MEDS ORDERED: KETOROLAC 30 MG/ML INJ ONE (21:38)
--- NOTE | 2018-09-12 23:02 | EDPHYS ---
Physician Documentation [facility] Name: Marisa Baker Age: 58 yrs Sex: Female : 1960 Arrival Date: 09/12/2018 Time: 21:01 Bed 4 Private MD: Nelson Jacobson B ED Physician Alvino Mckinley HPI: 09/12 21:22 This 58 yrs old Female presents to ER via Wheelchair with complaints of Fall graham Injury. 21:22 Details of fall: The patient fell from a height, down approximately 3 stairs. Onset: graham The symptoms/episode began/occurred just prior to arrival. Associated injuries: The patient sustained right ankle, lateral aspect of right foot, anterior aspect of right ankle and dorsum of right foot, painful injury, swelling. Severity of symptoms: At their worst the symptoms were mild, in the emergency department the symptoms are unchanged. The patient has not experienced similar symptoms in the past. Historical: - Allergies: 21:05 diphenhydramine HCl; irritability; la1 - PMHx: 21:05 "small blood clot somewhere"; CVA; la1 - PSHx: 21:05 ; Hysterectomy; Cholecystectomy; la1 - Immunization history:: Adult Immunizations up to date. - Social history:: Smoking status: Patient/guardian denies using tobacco. - Ebola Screening: : No symptoms or risks identified at this time. - Family history:: not pertinent. ROS: 21:22 Constitutional: Negative for fever, chills, and weight loss, Eyes: Negative for injury, graham pain, redness, and discharge, ENT: Negative for injury, pain, and discharge, Neck: Negative for injury, pain, and swelling, Cardiovascular: Negative for chest pain, palpitations, and edema, Respiratory: Negative for shortness of breath, cough, wheezing, and pleuritic chest pain, Abdomen/GI: Negative for abdominal pain, nausea, vomiting, diarrhea, and constipation, Back: Negative for injury and pain, : Negative for injury, bleeding, discharge, and swelling, Skin: Negative for injury, rash, and discoloration, Neuro: Negative for headache, weakness, numbness, tingling, and seizure, Psych: Negative for depression, anxiety, suicide ideation, homicidal ideation, and hallucinations, Allergy/Immunology: Negative for hives, rash, and allergies, Endocrine: Negative for neck swelling, polydipsia, polyuria, polyphagia, and marked weight changes, Hematologic/Lymphatic: Negative for swollen nodes, abnormal bleeding, and unusual bruising. 21:22 MS/extremity: Positive for swelling, tenderness, of the right ankle, lateral aspect of right foot, medial aspect of right foot, anterior aspect of right ankle and dorsum of right foot. Exam: 21:22 Constitutional: This is a well developed, well nourished patient who is awake, alert, graham and in no acute distress. Head/Face: Normocephalic, atraumatic. Eyes: Pupils equal round and reactive to light, extra-ocular motions intact. Lids and lashes normal. Conjunctiva and sclera are non-icteric and not injected. Cornea within normal limits. Periorbital areas with no swelling, redness, or edema. ENT: Nares patent. No nasal discharge, no septal abnormalities noted. Tympanic membranes are normal and external auditory canals are clear. Oropharynx with no redness, swelling, or masses, exudates, or evidence of obstruction, uvula midline. Mucous membranes moist. Neck: Trachea midline, no thyromegaly or masses palpated, and no cervical lymphadenopathy. Supple, full range of motion without nuchal rigidity, or vertebral point tenderness. No Meningismus. Chest/axilla: Normal chest wall appearance and motion. Nontender with no deformity. No lesions are appreciated. Cardiovascular: Regular rate and rhythm with a normal S1 and S2. No gallops, murmurs, or rubs. Normal PMI, no JVD. No pulse deficits. Respiratory: Lungs have equal breath sounds bilaterally, clear to auscultation and percussion. No rales, rhonchi or wheezes noted. No increased work of breathing, no retractions or nasal flaring. Abdomen/GI: Soft, non-tender, with normal bowel sounds. No distension or tympany. No guarding or rebound. No evidence of tenderness throughout. Back: No spinal tenderness. No costovertebral tenderness. Full range of motion. Skin: Warm, dry with normal turgor. Normal color with no rashes, no lesions, and no evidence of cellulitis. Neuro: Awake and alert, GCS 15, oriented to person, place, time, and situation. Cranial nerves II-XII grossly intact. Motor strength 5/5 in all extremities. Sensory grossly intact. Cerebellar exam normal. Normal gait. Psych: Awake, alert, with orientation to person, place and time. Behavior, mood, and affect are within normal limits. 21:22 Musculoskeletal/extremity: ROM: limited active range of motion due to pain, limited passive range of motion due to pain, Circulation is intact in all extremities. Sensation intact. Compartment Syndrome exam of affected extremity: is normal. DVT Exam: negative Homans' sign noted on exam, no appreciated bluish discoloration, no erythema, no increased warmth, pain, swelling, tenderness. Vital Signs: 21:05 BP 157 / 84; Pulse 87; Resp 16; Temp 97.6; Pulse Ox 98% on R/A; Weight 77.11 kg; Height la1 5 ft. 3 in. (160.02 cm); 21:05 Body Mass Index 30.11 (77.11 kg, 160.02 cm) la1 MDM: 21:17 Patient medically screened. [facility] 21:27 Data reviewed: vital signs, nurses notes, lab test result(s), EKG, radiologic studies, [facility] plain films. 09/12 21:22 Order name: Foot Right 3 View XRAY [facility] 09/12 21:22 Order name: Ankle Right 3 View XRAY [facility] 09/12 22:59 Order name: Walking boot; Complete Time: 23:41 [facility] 09/12 22:59 Order name: Crutches; Complete Time: 23:41 [facility] Administered Medications: 21:28 Drug: Buckley 10 mg-325 mg 1 tabs Route: PO; ak1 23:14 Follow up: Response: No adverse reaction ak1 21:28 Not Given (Patient Refused): TORadol 60 mg IVP once ak1 Disposition: 09/12/18 23:02 Discharged to Home. Impression: Sprain of deltoid ligament of right ankle, Unspecified sprain of right foot. - Condition is Stable. - Discharge Instructions: Ankle Sprain, Foot Sprain, Ankle Sprain, [id number]. - Prescriptions for Tylenol- Codeine #3 300-30 mg Oral Tablet - take 2 tablet by ORAL route every 6 hours As needed; 30 tablet. - Medication Reconciliation Form, Thank You Letter, Antibiotic Education, Prescription Opioid Use form. - Follow up: Nelson Jacobson MD; When: 2 - 3 days; Reason: Recheck today's complaints, Continuance of care, Re-evaluation by your physician. Follow up: Lino Navarro MD; When: 2 - 3 days; Reason: Recheck today's complaints, Continuance of care, Re-evaluation by your physician. - Problem is new. - Symptoms have improved. Signatures: Dispatcher [employer] EDAlvino Brumfield MD MD cha Attema, Lee RN RN la1 Aliyah Marley RN RN ak1 Corrections: (The following items were deleted from the chart) 21:23 21:22 Ice pack ordered. graham ambriz 23:41 23:02 09/12/2018 23:02 Discharged to Home. Impression: Sprain of deltoid ligament of la1 right ankle; Unspecified sprain of right foot. Condition is Stable. Forms are Medication Reconciliation Form, Thank You Letter, Antibiotic Education, Prescription Opioid Use. Follow up: Nelson Jacobson; When: 2 - 3 days; Reason: Recheck today's complaints, Continuance of care, Re-evaluation by your physician. Follow up: Lino Navarro; When: 2 - 3 days; Reason: Recheck today's complaints, Continuance of care, Re-evaluation by your physician. Problem is new. Symptoms have improved. graham
--- NOTE | 2018-09-12 23:02 | ER ---
Nurse's Notes [facility] Name: Marisa Baker Age: 58 yrs Sex: Female : 1960 Arrival Date: 09/12/2018 Time: 21:01 Bed 4 Private MD: Nelson Jacobson B Diagnosis: Sprain of deltoid ligament of right ankle;Unspecified sprain of right foot Presentation: 09/12 21:05 Presenting complaint: Patient states: I tripped and fell down 5-6 steps, pt denies LOC, la1 pain to right foot and left hand. Negative for C-spine tenderness. Transition of care: patient was not received from another setting of care. Onset of symptoms was September 12, 2018. Risk Assessment: Do you want to hurt yourself or someone else? Patient reports no desire to harm self or others. Initial Sepsis Screen: Does the patient meet any 2 criteria? No. Patient's initial sepsis screen is negative. Does the patient have a suspected source of infection? No. Patient's initial sepsis screen is negative. Care prior to arrival: None. 21:05 Method Of Arrival: Wheelchair la1 21:05 Acuity: YESSI 3 la1 Historical: - Allergies: 21:05 diphenhydramine HCl; irritability; la1 - PMHx: 21:05 "small blood clot somewhere"; CVA; la1 - PSHx: 21:05 ; Hysterectomy; Cholecystectomy; la1 - Immunization history:: Adult Immunizations up to date. - Social history:: Smoking status: Patient/guardian denies using tobacco. - Ebola Screening: : No symptoms or risks identified at this time. - Family history:: not pertinent. Screenin:14 Abuse screen: Denies threats or abuse. Denies injuries from another. Nutritional ak1 screening: No deficits noted. Tuberculosis screening: No symptoms or risk factors identified. Fall Risk Gait- Impaired (20 pts.). Assessment: 21:11 General: Appears in no apparent distress. Behavior is cooperative, crying. Pain: ak1 Complains of pain in dorsum of right foot, left ring finger. Neuro: No deficits noted. Cardiovascular: No deficits noted. Respiratory: No deficits noted. GI: No signs and/or symptoms were reported involving the gastrointestinal system. : No signs and/or symptoms were reported regarding the genitourinary system. EENT: No signs and/or symptoms were reported regarding the EENT system. Derm: No signs and/or symptoms reported regarding the dermatologic system. Musculoskeletal: Range of motion: limited in right foot Reports pain in dorsum of right foot, left ring finger since 2029. pt refused ice for injuries when offered. . pt denies LOC, denies hitting head, denies any other injury. pt with full ROM to left ring finger and all other fingers on left hand. 21:28 Reassessment: Toradol drawn up when pt refused. ak1 Vital Signs: 21:05 BP 157 / 84; Pulse 87; Resp 16; Temp 97.6; Pulse Ox 98% on R/A; Weight 77.11 kg; Height la1 5 ft. 3 in. (160.02 cm); 21:05 Body Mass Index 30.11 (77.11 kg, 160.02 cm) la1 ED Course: 21:01 Patient arrived in ED. mr 21:02 Nelson Jacobson MD is Private Physician. mr 21:05 Arm band placed on right wrist. la1 21:06 Triage completed. la1 21:10 Aliyah Marley, RN is Primary Nurse. ak1 21:11 Patient has correct armband on for positive identification. Bed in low position. Side ak1 rails up X2. Adult w/ patient. Pulse ox on. NIBP on. Door closed. Warm blanket given. 21:17 Alvino Mckinley MD is Attending Physician. graham 22:54 Foot Right 3 View XRAY In Process Unspecified. EDMS 22:54 Ankle Right 3 View XRAY In Process Unspecified. EDMS 22:59 Nelson Jacobson MD is Referral Physician. graham 23:00 Lino Navarro MD is Referral Physician. graham 23:41 No provider procedures requiring assistance completed. Patient did not have IV access la1 during this emergency room visit. Administered Medications: 21:28 Drug: [place] 10 mg-325 mg 1 tabs Route: PO; ak1 23:14 Follow up: Response: No adverse reaction ak1 21:28 Not Given (Patient Refused): TORadol 60 mg IVP once ak1 Outcome: 23:02 Discharge ordered by . graham 23:41 Discharged to home with crutches. la1 23:41 Condition: stable 23:41 Discharge instructions given to patient, family, Instructed on discharge instructions, follow up and referral plans. medication usage, crutch walking, Demonstrated understanding of instructions, follow-up care, medications, wound care, Prescriptions given X 1. 23:41 Patient left the ED. la1 Signatures: Dispatcher [employer] EDAlvino Brumfield MD MD cha Rivera, Mary mr Attema, Greg, RN RN la1 Aliyah Marley RN RN ak1
[2018-09-12 23:46] VITALS: BP 157/84; TEMP 97.6; O2SAT 98
--- NOTE | 2018-09-13 11:35 | RAD REPORT ---
EXAM DESCRIPTION: RAD - Foot Right 3 View - 09/12/2018 10:54 pm CLINICAL HISTORY: PAIN COMPARISON: Foot Right 3 View dated 02/11/2012; FOOT W OBLIQUES dated 09/28/2008 FINDINGS: Small posterior calcaneal spur is seen. Evidence of previous bunionectomy. Subtle bony fra gment is seen involving the base of the middle phalanx of the fifth toe, age of injury is uncertain b ut this may represent a tiny avulsion.
--- NOTE | 2018-09-13 11:38 | RAD REPORT ---
EXAM DESCRIPTION: RAD - Ankle Right 3 View - 09/12/2018 10:54 pm CLINICAL HISTORY: PAIN COMPARISON: Ankle Right 3 View dated 02/11/2012 FINDINGS: Soft tissue swelling is seen along the lateral malleolus. No acute fracture seen. Prominen t posterior calcaneal spur evident.
== END 2018-09-12 23:41 | disposition home or self-care (01) ==
LOC: ER 20:59
DX: S93.421A Sprain of deltoid ligament of right ankle, initial encounter (principal); S93.601A Unspecified sprain of right foot, initial encounter; W10.9XXA Fall (on) (from) unspecified stairs and steps, initial encounter; Z88.8 Allergy status to other drugs, medicaments and biological substances
CPT/HCPCS: 99284

== ENCOUNTER 2018-10-30 08:29 | Emergency (ER) | payer BC ==
[2018-10-30] MEDS ORDERED: MORPHINE 4 MG/ML SYR ONE (09:05)
[2018-10-30] MEDS ORDERED: ONDANSETRON 4 MG/2 ML VIAL ONE (09:05)
[2018-10-30] MEDS ORDERED: FAMOTIDINE 20 MG/2 ML VIAL IV ONE (09:05)
[2018-10-30] MEDS ORDERED: NA CHLORIDE 0.9% 1,000 ML ONE (09:06)
[2018-10-30 09:20] LABS: Absolute Lymphocytes (CBC) 1.6 K/uL (0.7-4.9); Absolute Monocytes 0.5 K/uL (0.1-1.3); Absolute Neutrophil 2.4 K/uL (1.8-8.0); Basophils % 1.1 % (0-1.3); Eosinophils % 6.4 % (0-4.4); Hematocrit 41.7 % (36.0-45.0); Lymphocytes % 32.9 % (15.3-44.8); MPV 9.6 fL (7.6-11.3); Monocytes % 10.3 % (3.3-12.3); RBC Red Blood Cell Count 4.81 M/uL (3.86-4.86)
[2018-10-30 09:36] LABS: Albumin 3.9 g/dL (3.4-5.0); Bilirubin Direct 0.1 mg/dL (0-0.2); Bilirubin Total 0.5 mg/dL (0.2-1.0); Potassium 4.1 mmol/L (3.5-5.1); Protein, Total 7.4 g/dL (6.4-8.2)
--- NOTE | 2018-10-30 10:06 | RAD REPORT ---
EXAM DESCRIPTION: CT - Abdomen Pelvis W Contrast - 10/30/2018 9:55 am CLINICAL HISTORY: Left-sided abdominal pain COMPARISON: CT June 2018 and April 2014 TECHNIQUE: Biphasic, helical CT imaging of the abdomen and pelvis was performed following 100 ml non -ionic IV contrast. Oral contrast was given. All CT scans are performed using dose optimization technique as appropriate and may include automated exposure control or mA/KV adjustment according to patient size. FINDINGS: No suspicious findings in the lung bases. The liver, spleen, and pancreas show no suspicious findings. Cholecystectomy clips are present. No ab normal biliary tree dilatation. Symmetric renal function is seen with no hydronephrosis or suspicious renal mass. No pyelonephritis o r acute parenchymal process. No bladder abnormalities. No adrenal abnormalities. Uterus is absent. Ov brit show no suspicious findings. No gastric dilatation or wall thickening. Prominent loops of small bowel is present in the mid abdome n. Small bowel is otherwise unremarkable. Moderate stool volume is present throughout the colon. Ther e is moderate sigmoid diverticulosis without diverticulitis. No acute colon process seen. No free air, free fluid or inflammatory stranding. No hernia, mass or bulky lymphadenopathy. No suspicious bony findings. IMPRESSION: Prominent sigmoid diverticulosis without diverticulitis. No acute colon finding identifi ed. Single loop of prominent small bowel in the mid abdomen. This is nonspecific. A mild ileus or enterit is would be possible there are matching clinical findings. Cholecystectomy change with no biliary tree abnormality.
[2018-10-30] MEDS ORDERED: HYDROMORPHONE HCL 1 MG/ML INJ ONE (10:30)
--- NOTE | 2018-10-30 10:49 | EDPHYS ---
Physician Documentation [facility] Name: Marisa Baker Age: 58 yrs Sex: Female : 1960 Arrival Date: 10/30/2018 Time: 08:32 Bed 20 Private MD: Nelson Jacobson B ED Physician Daniel Patel HPI: 10/30 08:49 This 58 yrs old Female presents to ER via Ambulatory with complaints of kdr Abdominal Pain, Back Pain. 08:51 The patient presents with abdominal pain in the upper abdomen, in the left upper kdr quadrant. Onset: The symptoms/episode began/occurred suddenly, this morning, When she awoke this morning, she noted the pain in her left CVA/lateral thorax posteriorly. The symptoms radiate to left back, the left flank. Associated signs and symptoms: Pertinent positives: Pertinent negatives: nausea and vomiting, constipation, diarrhea, dysuria, fever, headache, hematuria, palpitations, shortness of breath, vaginal discharge, vomiting, vomiting blood. The symptoms are described as achy, constant, sharp, stabbing, steady. Modifying factors: The symptoms are alleviated by nothing, the symptoms are aggravated by breathing deeply, movement, touching the area. Severity of pain: At its worst the pain was moderate severe just prior to arrival, in the emergency department the pain is unchanged. The patient has experienced similar episodes in the past, a few times. The patient has not recently seen a physician, Did see Dr. Tanner after her last episode and was noted to have numerous gastric ulcers. Historical: - Allergies: 08:44 diphenhydramine HCl; irritability; hb - PMHx: 08:44 "small blood clot somewhere"; CVA; hb - PSHx: 08:44 ; Hysterectomy; Cholecystectomy; hb - Immunization history:: Adult Immunizations up to date. - Social history:: Smoking status: Patient/guardian denies using tobacco. - Ebola Screening: : No symptoms or risks identified at this time. ROS: 08:51 Constitutional: Negative for fever, chills, and weight loss, Eyes: Negative for injury, kdr pain, redness, and discharge, ENT: Negative for injury, pain, and discharge, Neck: Negative for injury, pain, and swelling, Cardiovascular: Negative for chest pain, palpitations, and edema, Respiratory: Negative for shortness of breath, cough, wheezing, and pleuritic chest pain, Back: Negative for injury and pain, : Negative for injury, bleeding, discharge, and swelling, MS/Extremity: Negative for injury and deformity, Skin: Negative for injury, rash, and discoloration, Neuro: Negative for headache, weakness, numbness, tingling, and seizure activity. Psych: Negative for depression, anxiety, suicide ideation, homicidal ideation, and hallucinations, Allergy/Immunology: Negative for hives, rash, and allergies, Endocrine: Negative for neck swelling, polydipsia, polyuria, polyphagia, and marked weight changes, Hematologic/Lymphatic: Negative for swollen nodes, abnormal bleeding, and unusual bruising. 08:51 Abdomen/GI: Positive for abdominal pain, Negative for abdominal cramps, abdominal distension, anorexia, dysphagia, hematemesis, black/tarry stool, rectal pain, rectal bleeding, bowel incontinence. Exam: 08:51 Constitutional: This is a well developed, well nourished patient who is awake, alert, kdr and in no mild distress. Head/Face: Normocephalic, atraumatic. Eyes: Pupils equal round and reactive to light, extra-ocular motions intact. Lids and lashes normal. Conjunctiva and sclera are non-icteric and not injected. Cornea within normal limits. Periorbital areas with no swelling, redness, or edema. Neck: Trachea midline, no thyromegaly or masses palpated, and no cervical lymphadenopathy. Supple, full range of motion without nuchal rigidity, or vertebral point tenderness. No Meningismus. Chest/axilla: Normal chest wall appearance and motion. Nontender with no deformity. No lesions are appreciated. Cardiovascular: Regular rate and rhythm with a normal S1 and S2. No gallops, murmurs, or rubs. Normal PMI, no JVD. No pulse deficits. Respiratory: Lungs have equal breath sounds bilaterally, clear to auscultation and percussion. No rales, rhonchi or wheezes noted. No increased work of breathing, no retractions or nasal flaring. Back: No spinal tenderness. No costovertebral tenderness. Full range of motion. Skin: Warm, dry with normal turgor. Normal color with no rashes, no lesions, and no evidence of cellulitis. MS/ Extremity: Pulses equal, no cyanosis. Neurovascular intact. Full, normal range of motion. Neuro: Awake and alert, GCS 15, oriented to person, place, time, and situation. Cranial nerves II-XII grossly intact. Motor strength 5/5 in all extremities. Sensory grossly intact. Cerebellar exam normal. Normal gait. Psych: Awake, alert, with orientation to person, place and time. Behavior, mood, and affect are within normal limits. 08:51 Abdomen/GI: Inspection: obese Bowel sounds: diminished, in all quadrants, Palpation: soft, mild abdominal tenderness, in the epigastric area, right upper quadrant and left upper quadrant. Vital Signs: 08:43 BP 172 / 91; Pulse 88; Resp 16; Temp 97.4; Pulse Ox 100% on R/A; Weight 88.45 kg; hb Height 5 ft. 6 in. (167.64 cm); Pain 10/10; 10:11 BP 159 / 91; Pulse 61; Resp 18; Pulse Ox 98% on R/A; Pain 8/10; em 11:04 BP 148 / 88; Pulse 59; Resp 18; Pulse Ox 100% on R/A; Pain 5/10; em 08:43 Body Mass Index 31.47 (88.45 kg, 167.64 cm) hb MDM: 08:33 Patient medically screened. kdr 08:51 Data reviewed: vital signs, nurses notes, lab test result(s), radiologic studies. kdr Counseling: I had a detailed discussion with the patient and/or guardian regarding: the historical points, exam findings, and any diagnostic results supporting the discharge/admit diagnosis, lab results, radiology results. 10:28 ED course: The patient continues to have pain however, CT is negative for any acute kdr process and Lipase is much less than three times normal limit. There pancreatitis in not a consideration presently. 10/30 08:51 Order name: Basic Metabolic Panel; Complete Time: 10:20 kdr 10/30 08:51 Order name: CBC with Diff; Complete Time: 09:30 kdr 10/30 08:51 Order name: Creatinine for Radiology; Complete Time: 10:20 kdr 10/30 08:51 Order name: Hepatic Function; Complete Time: 10:20 kdr 10/30 08:51 Order name: Lipase; Complete Time: 10:20 kdr 10/30 10:24 Order name: Urine Dipstick--Ancillary (enter results) ms 10/30 08:49 Order name: CT Abd/Pelvis - IV Contrast Only; Complete Time: 10:20 kdr 10/30 08:51 Order name: IV Saline Lock; Complete Time: 09:08 kdr 10/30 08:51 Order name: Labs collected and sent; Complete Time: 09: kdr 10/30 10:24 Order name: Urine Dipstick-Ancillary (obtain specimen); Complete Time: 10:29 ms Administered Medications: 09:05 Drug: Zofran 4 mg Route: IVP; Site: right antecubital; hb 10:08 Follow up: Response: No adverse reaction; Nausea is decreased em 09:05 Drug: Pepcid 20 mg Route: IVP; Site: right antecubital; hb 10:08 Follow up: Response: No adverse reaction; Pain is decreased em 09:05 Drug: NS 0.9% 1000 ml Route: IV; Rate: 1 bolus; Site: right antecubital; em 11:04 Follow up: IV Status: Completed infusion; IV Intake: 1000ml em 09:07 Drug: morphine 4 mg Route: IVP; Site: right antecubital; hb 10:09 Follow up: Response: No adverse reaction; Pain is decreased em 10:22 Drug: Dilaudid 1 mg Route: IVP; Site: right antecubital; hb 11:03 Follow up: Response: No adverse reaction; Pain is decreased em Disposition: 10/30/18 10:48 Discharged to Home. Impression: Abdominal and pelvic pain. - Condition is Stable. - Discharge Instructions: Abdominal Pain, Adult, [id number]. - Prescriptions for Bentyl 20 mg Oral Tablet - take 1 tablet by ORAL route every 6 hours As needed; 20 tablet. Tramadol 50 mg Oral Tablet - take 1 tablet by ORAL route every 8 hours as needed; 12 tablet. - Medication Reconciliation Form, Thank You Letter, Prescription Opioid Use form. - Follow up: Nelson Jacobson MD; When: 2 - 3 days; Reason: If symptoms return, Further diagnostic work-up, Recheck today's complaints, Continuance of care, Re-evaluation by your physician. Follow up: Raul Tanner MD; When: 2 - 3 days; Reason: If symptoms return, Further diagnostic work-up, Recheck today's complaints, Continuance of care, Re-evaluation by your physician. - Problem is an acute exacerbation. - Symptoms have improved. Signatures: Dispatcher [employer] Daniel De Dios MD MD kdr Munoz, Edgar, SUPERVISOR [employer]IT[employer] SUPERVISOR [employer] Jessica Rice ms, Heather, RN RN Corrections: (The following items were deleted from the chart) 11:05 10:48 10/30/2018 10:48 Discharged to Home. Impression: Abdominal and pelvic pain. em Condition is Stable. Forms are Medication Reconciliation Form, Thank You Letter, Antibiotic Education, Prescription Opioid Use. Follow up: Nelson Jacobson; When: 2 - 3 days; Reason: If symptoms return, Further diagnostic work-up, Recheck today's complaints, Continuance of care, Re-evaluation by your physician. Follow up: Raul Tanner; When: 2 - 3 days; Reason: If symptoms return, Further diagnostic work-up, Recheck today's complaints, Continuance of care, Re-evaluation by your physician. Problem is an acute exacerbation. Symptoms have improved. kdr
--- NOTE | 2018-10-30 10:49 | ER ---
Nurse's Notes [facility] Name: Marisa Baker Age: 58 yrs Sex: Female : 1960 Arrival Date: 10/30/2018 Time: 08:32 Bed 20 Private MD: Nelson Jacobson B Diagnosis: Abdominal and pelvic pain Presentation: 10/30 08:41 Presenting complaint: Left mid back pain that radiates to left abdomen, abdominal hb swelling, and difficulty swallowing x 2 days. Transition of care: patient was not received from another setting of care. Onset of symptoms was October 28, 2018. Risk Assessment: Do you want to hurt yourself or someone else? Patient reports no desire to harm self or others. Initial Sepsis Screen: Does the patient meet any 2 criteria? No. Patient's initial sepsis screen is negative. Does the patient have a suspected source of infection? No. Patient's initial sepsis screen is negative. Care prior to arrival: None. 08:41 Method Of Arrival: Ambulatory hb 08:41 Acuity: YESSI 3 hb Historical: - Allergies: 08:44 diphenhydramine HCl; irritability; hb - PMHx: 08:44 "small blood clot somewhere"; CVA; hb - PSHx: 08:44 ; Hysterectomy; Cholecystectomy; hb - Immunization history:: Adult Immunizations up to date. - Social history:: Smoking status: Patient/guardian denies using tobacco. - Ebola Screening: : No symptoms or risks identified at this time. Screenin:45 Abuse screen: Denies threats or abuse. Denies injuries from another. Nutritional hb screening: No deficits noted. Tuberculosis screening: No symptoms or risk factors identified. Fall Risk None identified. Assessment: 08:55 General: Appears in no apparent distress. uncomfortable, Behavior is cooperative, em crying, Denies fever. Pain: Complains of pain in thoracic area Pain radiates to epigastric area, right upper quadrant and left upper quadrant Pain currently is 10 out of 10 on a pain scale. Quality of pain is described as sharp. Neuro: Level of Consciousness is awake, alert, obeys commands, Oriented to person, place, time, situation. Cardiovascular: Capillary refill < 3 seconds Patient's skin is warm and dry. Respiratory: Airway is patent Respiratory effort is even, unlabored, Respiratory pattern is regular, symmetrical. GI: Abdomen is round obese, Bowel sounds present X 4 quads. Abd is soft X 4 quads Abdomen is tender to palpation in epigastric area, right upper quadrant and left upper quadrant. : Denies burning with urination. Derm: Skin is intact, is thin, Skin is pink, warm \\T\\ dry. Musculoskeletal: Capillary refill < 3 seconds, Range of motion: intact in all extremities. 09:20 Reassessment: I agree with the assessment made by Luis E ADAM. sg 09:45 Reassessment: Patient appears in no apparent distress at this time. wheeled to CT via em wheelchair. 10:32 Reassessment: Patient appears in no apparent distress at this time. Patient and/or em family updated on plan of care and expected duration. Pain level reassessed. Patient is alert, oriented x 3, equal unlabored respirations, skin warm/dry/pink. rates pain 5/10 Patient states feeling better. Patient states symptoms have improved. Vital Signs: 08:43 BP 172 / 91; Pulse 88; Resp 16; Temp 97.4; Pulse Ox 100% on R/A; Weight 88.45 kg; hb Height 5 ft. 6 in. (167.64 cm); Pain 10/10; 10:11 BP 159 / 91; Pulse 61; Resp 18; Pulse Ox 98% on R/A; Pain 8/10; em 11:04 BP 148 / 88; Pulse 59; Resp 18; Pulse Ox 100% on R/A; Pain 5/10; em 08:43 Body Mass Index 31.47 (88.45 kg, 167.64 cm) ED Course: 08:32 Patient arrived in ED. mr 08:32 Nelson Jacobson MD is Private Physician. mr 08:33 Daniel Patel MD is Attending Physician. kdr 08:40 Luis E Wayne LVN is Primary Nurse. em 08:43 Triage completed. hb 08:43 Arm band placed on. hb 09:00 Patient has correct armband on for positive identification. Placed in gown. Bed in low em position. Call light in reach. Side rails up X2. Pulse ox on. NIBP on. 09:00 Warm blanket given. em 09:05 Initial lab(s) drawn, by me, sent to lab. Inserted saline lock: 22 gauge in right em antecubital area, using aseptic technique. Blood collected. 09:49 CT completed. Patient tolerated procedure well. Patient moved to CT via wheelchair. Patient moved back from CT. 09:56 CT Abd/Pelvis - IV Contrast Only In Process Unspecified. EDMS 10:47 Nelson Jacobson MD is Referral Physician. kdr 10:48 Raul Tanner MD is Referral Physician. kdr 11:02 No provider procedures requiring assistance completed. IV discontinued, intact, em bleeding controlled, No redness/swelling at site. Pressure dressing applied. Administered Medications: 09:05 Drug: Zofran 4 mg Route: IVP; Site: right antecubital; hb 10:08 Follow up: Response: No adverse reaction; Nausea is decreased em 09:05 Drug: Pepcid 20 mg Route: IVP; Site: right antecubital; hb 10:08 Follow up: Response: No adverse reaction; Pain is decreased em 09:05 Drug: NS 0.9% 1000 ml Route: IV; Rate: 1 bolus; Site: right antecubital; em 11:04 Follow up: IV Status: Completed infusion; IV Intake: 1000ml em 09:07 Drug: morphine 4 mg Route: IVP; Site: right antecubital; hb 10:09 Follow up: Response: No adverse reaction; Pain is decreased em 10:22 Drug: Dilaudid 1 mg Route: IVP; Site: right antecubital; hb 11:03 Follow up: Response: No adverse reaction; Pain is decreased em Intake: 11:04 IV: 1000ml; Total: 1000ml. em Outcome: 10:48 Discharge ordered by . kdr 11:02 Discharged to home ambulatory. em 11:02 Condition: good 11:02 Discharge instructions given to patient, Instructed on discharge instructions, follow up and referral plans. medication usage, Demonstrated understanding of instructions, follow-up care, medications, Prescriptions given X 2. 11:05 Patient left the ED. em Signatures: Dispatcher [employer] EDLino Martin, AMY REYES Daniel Patel MD MD kdr Rivera, Mary mr Jones, Susan sj Munoz, Edgar, SOLAR ENERGY TECHNICIAN SOLAR ENERGY TECHNICIAN em Celina Puga RN RN hb
[2018-10-30 11:15] VITALS: TEMP 97.4
[2018-10-30 11:17] VITALS: BP 148/88; O2SAT 100
[2018-10-30 11:59] LABS: Urine Blood TRACE (NEG); Urine Glucose NEGATIVE (NEG); Urine Protein NEGATIVE (NEG); Urine Specific Gravity 1.015 (1.005-1.030)
== END 2018-10-30 11:05 | disposition home or self-care (01) ==
LOC: ER 08:29
DX: R10.2 Pelvic and perineal pain (principal); Z86.73 Personal history of transient ischemic attack (TIA), and cerebral infarction without residual deficits; Z88.8 Allergy status to other drugs, medicaments and biological substances
CPT/HCPCS: 36415; 74177; 80048; 80076; 81003; 83690; 85025; 96361; 96374; 96375; 99284; J1170; J2405; J7030; Q9967

== ENCOUNTER 2019-03-01 07:56 | Day surgery (SDC) | payer BC ==
[2019-02-24 10:03] LABS: Absolute Lymphocytes (CBC) 1.8 K/uL (0.7-4.9); Basophils % 0.8 % (0-1.3); Hematocrit 39.8 % (36.0-45.0); Lymphocytes % 22.3 % (15.3-44.8); MPV 9.9 fL (7.6-11.3); RBC Red Blood Cell Count 4.59 M/uL (3.86-4.86)
--- NOTE | 2019-02-24 10:05 | RAD REPORT ---
EXAM DESCRIPTION: RAD - Chest Pa And Lat (2 Views) - 02/24/2019 10:00 am CLINICAL HISTORY: PRE OP Chest pain. COMPARISON: Chest Single View dated 06/23/2018; Chest Single View dated 02/26/2018; Chest Pa And Lat ( 2 Views) dated 11/23/2017; Chest Single View dated 11/21/2017 FINDINGS: The lungs are clear. The heart is normal in size. No displaced fractures. IMPRESSION: No acute or concerning finding suspected.
[2019-02-24 10:14] LABS: Potassium 3.8 mmol/L (3.5-5.1)
--- NOTE | 2019-02-24 12:11 | EKG ---
Test Date: 2019-02-24 Test Time: 09:44:22 Measurement Advisor: ELIAN MEASUREMENT RESULTS: Intervals: Rate: 60 [place]: 130 QRSD: 94 QT: 428 QTc: 428 [place]: P: 11 [place]: 130 QRS: 21 T: 20 INTERPRETIVE STATEMENTS: Normal sinus rhythm Normal ECG Compared to ECG 06/23/2018 19:43:08 No significant changes Electronically Signed On 02-24-19 12:10:29 CDT by Eber Connors
[2019-03-01] MEDS ORDERED: CEFAZOLIN/SWI 1gm 1 GM/10 ML SYR ONE (08:10)
[2019-03-01] MEDS ORDERED: Ringers Lactate 1,000 ML IV ONE (08:10)
[2019-03-01] MEDS ORDERED: SCOPOLAMINE HYDROBROMIDE PATCH TD ONE (08:33)
[2019-03-01] MEDS ORDERED: FENTANYL CITR 100 MCG/2 ML ONE (09:19)
[2019-03-01] MEDS ORDERED: PROPOFOL 200 MG/20 ML VIAL IV ONE (09:19)
[2019-03-01] MEDS ORDERED: MIDAZOLAM HCL 2 MG/2 ML INJ ONE (09:19)
[2019-03-01] MEDS ORDERED: dexAMETHasone 10 MG/ML VIAL ONE (09:20)
[2019-03-01] MEDS ORDERED: LIDOCAINE 2% MPF 5 ML VIAL ONE (09:20)
[2019-03-01] MEDS ORDERED: ONDANSETRON 4 MG/2 ML VIAL ONE (09:21)
[2019-03-01] MEDS ORDERED: BUPIVACAINE 0.5% PF 10 ML VIAL ONE (09:48)
[2019-03-01] MEDS ORDERED: GLYCOPYRROLATE 0.2 MG/ML SYR ONE ×2 (10:17→10:18)
[2019-03-01] MEDS ORDERED: Mastisol Adhesive Liq ONE (10:32)
[2019-03-01] MEDS ORDERED: KETOROLAC 30 MG/ML INJ ONE (10:33)
[2019-03-01] MEDS ORDERED: MEPERIDINE HCL 25 MG/0.5 ML ONE ×2 (11:41→11:54)
--- NOTE | 2019-03-01 12:12 | RAD REPORT ---
EXAM DESCRIPTION: US - Brst,Preop NL Wire Init w/Guid - 03/01/2019 9:49 am CLINICAL HISTORY: NEEDLE LOC, left breast mass COMPARISON: Ultrasound study February 15 TECHNIQUE: Patient presents for preoperative needle localization of a rounded mass and adjacent comp jas cyst in the 4 o'clock region of the left breast. Preliminary imaging again identified the complex cyst and adjacent rounded mass in the 4 o'clock left breast. A smaller adjacent mass was present as well showing imaging characteristics identical to the rounded mass. Consent was obtained as part of the surgical consent. The needle localization procedure was discussed with the patient in detail. Additional verbal consent was obtained. Preliminary sonographic guidance was utilized. Skin marking was utilized to know the location of the complex elongated cyst in the ad jacent rounded mass. [place] approach lateral and inferior to the mass, skin and deeper tissues were anesthetized with 1% li docaine. Under direct sonographic visualization a [place] 5 centimeter mammo lock needle was advanced. The tip was placed at small focus of tissue that is positioned between the cyst and the rounded mass. Needle tip was on the superficial margin. Needle was advanced in an approach tangential to the impla nt. Hookwire was set. Positioning of the needle tip deemed adequate. Patient was transferred to the same day surgical area for pending biopsy. Skin marking and needle positions were discussed with the refer ring physician prior to the biopsy. IMPRESSION: Ultrasound-guided needle localization was performed as detailed.
--- NOTE | 2019-03-01 12:13 | RAD REPORT ---
EXAM DESCRIPTION: US - Surgical Specimen - 03/01/2019 11:06 am FINDINGS: Sonographic evaluation of the tissue specimen was performed. The elongated complex cyst re main intact in is visible within the specimen. The rounded mass adjacent to the cyst was also present and intact. The smaller mass was not clearly identified. After discussions with the referring physician, it is believed the smaller mass may have been disrupt ed during extraction of the specimen.
[2019-03-01] MEDS ORDERED: HYDROCODONE/APAP 7.5/325 MG TAB ONE (13:09)
[2019-03-01 14:50] VITALS: BP 122/85; TEMP 97.1; O2SAT 93
--- NOTE | 2019-03-01 21:30 | OP ---
Date of Procedure: 03/01/2019 Surgeon: Jake Owens MD Container Washer Machine: VALARIE Blair. Preoperative Diagnosis: Left breast mass x2. Postoperative Diagnosis: Left breast mass x2. Procedures: Needle localization excision of left breast mass x2. Estimated Blood Loss: Minimal. Specimens: Left breast mass x2. Findings: As above. Anesthesia: General. Complications: None. Patient tolerated the procedure in stable condition, taken to Recovery in good general condition. Procedure In Detail: Patient was brought to the OR and placed in supine position. General anesthesi a was begun. The patient was prepped and draped in the usual sterile fashion. Patient had needle lo calization and skin katarina to identify the location of the tumor areas of concern. She does have impla nts that is why both methods were utilized, so a 4 cm incision to the tangential to the nipple areola complex at approximately the 4 o'clock position was made. Subcutaneous tissue divided and a large c ore tissue around the tip of the needle excised, sent to Pathology, and confirmation obtained. Care was taken to avoid injury to the implant. Wound irrigated and bleeding controlled with cautery and 3 -0 chromic used to approximate the subcutaneous tissue and close the skin. Sterile dressing was appl ied. The patient was awakened and taken to Recovery in good general condition. Discharge Note: Patient will go to Day Surgery, then home when stable. Disposition: Home. Condition: Stable. Discharge Instructions: Resume home medications and diet. Activity as tolerated. No heavy lifting. Remove outer dressing in 2 days. Shower. Keep wound clean and dry. Keep Steri-Strips on at all t imes. Follow up in my office in 1 week. Call for appointment. Tylenol No. 3, 1 tablet p.o. q.4 p.r .n. pain. /MODL Voice ID: [id number] Report ID: [id number]
--- OUTSIDE RECORDS SUMMARY | 2019-03-27 18:55 | XMS REPORT ---
:1960 [facility] Address [address] [place] [address] Dr. Tyson [address] [place] [id number] Care Team Providers Name Role Phone Unavailable Unavailable Unavailable Problems This patient has no known problems. Allergies, Adverse Reactions, Alerts This patient has no known allergies or adverse reactions. Medications This patient has no known medications.
== END 2019-03-01 14:10 | disposition home or self-care (01) ==
LOC: OR 07:56
PROVIDERS: ATTEND Surgery
PROC: 0HBU0ZZ Excision of Left Breast, Open Approach (ICD-10-PCS; principal; 2019-03-01 10:00)
DX: N63.20 Unspecified lump in the left breast, unspecified quadrant (principal); Z88.8 Allergy status to other drugs, medicaments and biological substances; Z91.048 Other nonmedicinal substance allergy status; Z90.710 Acquired absence of both cervix and uterus
CPT/HCPCS: 93005; 85025; 80048; 36415; 88305; 71046; 76098; 19285; 19120; J2704; J2250; J3010; J1100; J2175 ×2; J0690; J7120; J2405

== ENCOUNTER 2019-03-03 18:30 | Emergency (ER) | payer BC ==
[2019-03-03] MEDS ORDERED: LEVALBUTEROL 1.25 MG/3 ML NEB ONE (19:49)
[2019-03-03] MEDS ORDERED: ONDANSETRON 4 MG/2 ML VIAL ONE (19:49)
[2019-03-03] MEDS ORDERED: NA CHLORIDE 0.9% 1,000 ML ONE (19:49)
[2019-03-03 19:56] LABS: Absolute Lymphocytes (CBC) 2.9 K/uL (0.7-4.9); Basophils % 0.8 % (0-1.3); Hematocrit 37.5 % (36.0-45.0); Lymphocytes % 33.6 % (15.3-44.8); MPV 9.7 fL (7.6-11.3); RBC Red Blood Cell Count 4.22 M/uL (3.86-4.86)
[2019-03-03 19:58] LABS: Urine Blood NEGATIVE (NEG); Urine Glucose NEGATIVE (NEG); Urine Protein NEGATIVE (NEG); Urine Specific Gravity 1.015 (1.005-1.030)
[2019-03-03 20:15] LABS: ALT/SGPT 37 U/L (12-78); AST/SGOT 30 U/L (15-37); Albumin 3.4 g/dL (3.4-5.0); Alkaline Phosphatase 76 U/L (45-117); BUN Blood Urea Nitrogen 14 mg/dL (7-18); Bicarbonate 29 mmol/L (21-32); Bilirubin Direct < 0.1 mg/dL (0-0.2); Bilirubin Total 0.3 mg/dL (0.2-1.0); Glucose Level 80 mg/dL (74-106); Lipase 132 U/L (73-393); Potassium 3.5 mmol/L (3.5-5.1); Protein, Total 6.3 g/dL (6.4-8.2); Sodium Level 143 mmol/L (136-145); Troponin (Emerg Dept Use Only) < 0.02 ng/mL (0.0-0.045)
--- NOTE | 2019-03-03 20:20 | RAD REPORT ---
EXAM DESCRIPTION: RAD - Chest Pa And Lat (2 Views) - 03/03/2019 8:11 pm CLINICAL HISTORY: Dyspnea;Chest pain Chest pain. COMPARISON: Chest Pa And Lat (2 Views) dated 02/24/2019; Chest Single View dated 06/23/2018; Chest Sing le View dated 02/26/2018; Chest Pa And Lat (2 Views) dated 11/23/2017; Surgical Specimen dated 03/01/20 19; Brst,Preop NL Wire Init w/Guid dated 03/01/2019 FINDINGS: Mild interstitial pulmonary edema is suspected. The heart is mildly enlarged in size. No d isplaced fractures. IMPRESSION: Mild CHF.
[2019-03-03 20:54] LABS: Urine Bacteria 20-50 /HPF (<20); Urine Culture Reflex Order REFLEXED; Urine RBC <5 /HPF (NONE SEEN)
[2019-03-03] MEDS ORDERED: FUROSEMIDE 40 MG/4 ML VIAL ONE (22:22)
[2019-03-03] MEDS ORDERED: METHYLPREDNISOLONE 125 MG INJ ONE (22:50)
--- NOTE | 2019-03-03 23:28 | ER ---
Nurse's Notes [facility] Name: Marisa Baker Age: 58 yrs Sex: Female : 1960 Arrival Date: 03/03/2019 Time: 18:33 Bed 13 Private MD: Nelson Jacobson B Diagnosis: Dyspnea, unspecified;Pleural effusion, not elsewhere classified;Atelectasis Presentation: 03/03 18:37 Presenting complaint: Patient states: I had a left breast biopsy on Friday with Dr. isaiah Owens and since then I feel like I am breathing through cotton, my mouth is dry, and I am nauseous. Transition of care: patient was not received from another setting of care. Onset of symptoms was March 03, 2019. Risk Assessment: Do you want to hurt yourself or someone else? Patient reports no desire to harm self or others. Initial Sepsis Screen: Does the patient meet any 2 criteria? No. Patient's initial sepsis screen is negative. Does the patient have a suspected source of infection? No. Patient's initial sepsis screen is negative. Care prior to arrival: None. 18:37 Method Of Arrival: Wheelchair la1 18:37 Acuity: YESSI 3 la1 Historical: - Allergies: 18:38 diphenhydramine HCl; irritability; la1 - PMHx: 18:38 "small blood clot somewhere"; CVA; la1 - Immunization history:: Adult Immunizations up to date. - Social history:: Smoking status: Patient/guardian denies using tobacco. - Ebola Screening: : No symptoms or risks identified at this time. - Family history:: not pertinent. - Hospitalizations: : No recent hospitalization is reported. Screenin:24 Abuse screen: Denies threats or abuse. Denies injuries from another. Nutritional wh screening: No deficits noted. Tuberculosis screening: No symptoms or risk factors identified. Fall Risk None identified. Assessment: 19:25 General: Appears in no apparent distress. Behavior is calm, cooperative, appropriate wh for age. Pain: Denies pain. Neuro: Level of Consciousness is awake, alert, obeys commands, Oriented to person, place, time, situation, Appropriate for age Process Artist are equal bilaterally Reports dizziness. Cardiovascular: Heart tones S1 S2. Respiratory: Airway is patent Respiratory effort is even, unlabored, Respiratory pattern is regular, symmetrical, Breath sounds are diminished bilaterally. GI: Abdomen is flat, non-distended. : No signs and/or symptoms were reported regarding the genitourinary system. EENT: Throat is pink. Derm: Skin is intact, is healthy with good turgor, Skin is pink, warm \\T\\ dry. normal. Musculoskeletal: Circulation, motion, and sensation intact. Range of motion: intact in all extremities. 20:43 Reassessment: Patient appears in no apparent distress at this time. No changes from previously documented assessment. Patient and/or family updated on plan of care and expected duration. Pain level reassessed. Patient is alert, oriented x 3, equal unlabored respirations, skin warm/dry/pink. Dr De Los Santos at bedside discussing CXR results, IVF stopped. 22:34 Reassessment: Patient appears in no apparent distress at this time. No changes from previously documented assessment. Patient and/or family updated on plan of care and expected duration. Pain level reassessed. Patient is alert, oriented x 3, equal unlabored respirations, skin warm/dry/pink. Dr De Los Santos at bedside discussing POC. 23:47 Reassessment: Patient appears in no apparent distress at this time. No changes from previously documented assessment. Patient and/or family updated on plan of care and expected duration. Pain level reassessed. Patient is alert, oriented x 3, equal unlabored respirations, skin warm/dry/pink. 1600cc of Urine output noted Patient states feeling better. Patient states symptoms have improved. Vital Signs: 18:38 BP 140 / 83; Pulse 65; Resp 16; Temp 97.4; Pulse Ox 95% on R/A; Weight 72.57 kg; Height la1 5 ft. 7 in. (170.18 cm); 20:47 BP 136 / 87; Pulse 51; Resp 18; Pulse Ox 100% on R/A; wh 22:35 BP 135 / 85; Pulse 54; Resp 18; Pulse Ox 96% on R/A; wh 23:48 BP 121 / 77; Pulse 53; Resp 18; Pulse Ox 97% on R/A; wh 18:38 Body Mass Index 25.06 (72.57 kg, 170.18 cm) la1 ED Course: 18:33 Patient arrived in ED. mr 18:33 Nelson Jacobson MD is Private Physician. mr 18:38 Triage completed. la1 18:39 Arm band placed on left wrist. la1 19:01 Ashish De Los Santos MD is Attending Physician. rn 19:22 Reza Ramírez is Primary Nurse. 19:28 Patient has correct armband on for positive identification. Placed in gown. Bed in low wh position. Call light in reach. Side rails up X 1. Pulse ox on. NIBP on. 19:51 Inserted saline lock: 22 gauge in right antecubital area, using aseptic technique. wh Blood collected. 20:11 XRAY Chest Pa And Lat (2 Views) In Process Unspecified. EDMS 21:[address] via stretcher. nj 21:16 CT Chest For PE Angio In Process Unspecified. EDNV 23:28 Dennis Norris MD is Referral Physician. rn 23:48 No provider procedures requiring assistance completed. IV discontinued, intact, wh bleeding controlled, No redness/swelling at site. Administered Medications: 20:13 Drug: Xopenex 1.25 mg Route: Inhalation; 20:14 Drug: NS 0.9% 1000 ml Route: IV; Rate: 1000 ml; Site: right antecubital; 20:46 Follow up: Response: No adverse reaction; IV Status: Order to discontinue infusion 20:14 Drug: Zofran 4 mg Route: IVP; Site: right antecubital; 20:46 Follow up: Response: No adverse reaction; Nausea is decreased 22:18 CANCELLED (Duplicate Order): Lasix 20 mg IVP once rn 22:34 Drug: Lasix 40 mg Route: IVP; Site: right antecubital; 23:49 Follow up: Response: No adverse reaction 22:55 Drug: SOLU-Medrol 125 mg Route: IVP; Site: right antecubital; 23:50 Follow up: Response: No adverse reaction Outcome: 23:28 Discharge ordered by MD. rn 23:49 Discharged to home ambulatory, with family. 23:49 Condition: stable 23:49 Discharge instructions given to patient, family, Instructed on discharge instructions, follow up and referral plans. medication usage, POC Atelectasis, Pleural effusions and SOB Demonstrated understanding of instructions, follow-up care, medications, POC Prescriptions given X 3. 23:50 Patient left the ED. Signatures: Dispatcher [employer] EDMyesha Hensley, MD BANG Hinojosa rn [place], AMY Garza RN la1 Jose Luis Mcfarland Winsy wh Corrections: (The following items were deleted from the chart) 20:46 20:43 Reassessment: Patient appears in no apparent distress at this time. No changes wh from previously documented assessment. Patient and/or family updated on plan of care and expected duration. Pain level reassessed. Patient is alert, oriented x 3, equal unlabored respirations, skin warm/dry/pink. Dr De Los Santos at bedside discussing MALTED MILK MASHER results, IVF stopped wh
--- NOTE | 2019-03-03 23:29 | EDPHYS ---
Physician Documentation [facility] Name: Marisa Baker Age: 58 yrs Sex: Female : 1960 Arrival Date: 03/03/2019 Time: 18:33 Bed 13 Private MD: Nelson Jacobson B ED Physician Ashish De Los Santos HPI: 03/03 19:40 This 58 yrs old Female presents to ER via Wheelchair with complaints of rn Nausea, Dizziness, sob. 19:40 Reports just had breast biopsy done early this week, since then has been nauseous, rn dizzy, feels like "breathing through cotton". NO fever. Mild cough. + previous long time smoker with "mild COPD", but doesn't take any meds for it. Reports nausea but no abd pain/diarrhea/blood in stool. States sensitive to anesthesia and this happened after another surgery as well, eventually got better. . Onset: The symptoms/episode began/occurred 3 day(s) ago. Severity of symptoms: At their worst the symptoms were mild in the emergency department the symptoms are unchanged. The patient has experienced a previous episode. The patient has been recently seen by a physician:. Historical: - Allergies: 18:38 diphenhydramine HCl; irritability; la1 - PMHx: 18:38 "small blood clot somewhere"; CVA; la1 - Immunization history:: Adult Immunizations up to date. - Social history:: Smoking status: Patient/guardian denies using tobacco. - Ebola Screening: : No symptoms or risks identified at this time. - Family history:: not pertinent. - Hospitalizations: : No recent hospitalization is reported. ROS: 19:40 Constitutional: Negative for fever, chills, and weight loss, Eyes: Negative for injury, rn pain, redness, and discharge, Neck: Negative for injury, pain, and swelling, Cardiovascular: Negative for palpitations, and edema, Respiratory: Negative for wheezing, and pleuritic chest pain, Abdomen/GI: Negative for abdominal pain, vomiting, diarrhea, and constipation, MS/Extremity: Negative for injury and deformity, Skin: Negative for injury, rash, and discoloration, Neuro: Negative for headache, numbness, tingling, and seizure. Exam: 19:40 Constitutional: This is a well developed, well nourished patient who is awake, alert, rn and in no acute distress. Head/Face: Normocephalic, atraumatic. Eyes: Pupils equal round and reactive to light, extra-ocular motions intact. Lids and lashes normal. Conjunctiva and sclera are non-icteric and not injected. Cornea within normal limits. Periorbital areas with no swelling, redness, or edema. ENT: dry MM Chest/axilla: Normal chest wall appearance and motion. Nontender with no deformity. Cardiovascular: Regular rate and rhythm. No pulse deficits. Respiratory: Diminished bilateral breath sounds, poor effort, no wheezing or retractions, speaking full sentences. Abdomen/GI: soft, non-tender Skin: Warm, dry, and no evidence of cellulitis. MS/ Extremity: Pulses equal, no cyanosis. Neurovascular intact. Full, normal range of motion. Equal circumference. Neuro: Awake and alert, GCS 15, oriented to person, place, time, and situation. Cranial nerves II-XII grossly intact. Motor strength 5/5 in all extremities. Sensory grossly intact. Cerebellar exam normal. 19:48 ECG was reviewed by the Attending Physician. rn Vital Signs: 18:38 BP 140 / 83; Pulse 65; Resp 16; Temp 97.4; Pulse Ox 95% on R/A; Weight 72.57 kg; Height la1 5 ft. 7 in. (170.18 cm); 20:47 BP 136 / 87; Pulse 51; Resp 18; Pulse Ox 100% on R/A; wh 22:35 BP 135 / 85; Pulse 54; Resp 18; Pulse Ox 96% on R/A; wh 23:48 BP 121 / 77; Pulse 53; Resp 18; Pulse Ox 97% on R/A; wh 18:38 Body Mass Index 25.06 (72.57 kg, 170.18 cm) la1 MDM: 19:01 Patient medically screened. rn 22:55 ED course: CT shows "tiny pleural effusions" and atelectasis, no infiltrate/PTX/PE. rn ECHO and stress test normal 1 year ago. Oxygen at baseline. Given lasix here to test for improvement in addition to steroids/nebs. Diagnosed with COPD years ago but not on maintenance therapy, could be combination of sensitivity to anesthesia in addition to years of untreated COPD and decreased pulmonary function. Will dc home with steroids and inhaler with instructions to f/u with cardiology and pulmonology. Return precautions given and understood. . 23:27 Differential Diagnosis sensitivity to anesthesia, COPD, CHF, atelectasis, PE, rn aspiration. Data reviewed: vital signs, nurses notes, lab test result(s), EKG, radiologic studies, CT scan, plain films, and as a result, I will discharge patient. Counseling: I had a detailed discussion with the patient and/or guardian regarding: the historical points, exam findings, and any diagnostic results supporting the discharge/admit diagnosis, lab results, radiology results, the need for outpatient follow up, to return to the emergency department if symptoms worsen or persist or if there are any questions or concerns that arise at home. Response to treatment: There is no appreciated change of the patient's symptoms at this time, and as a result, I will discharge patient. 03/03 19:22 Order name: CBC with Diff; Complete Time: 20:00 rn 03/03 19:22 Order name: Basic Metabolic Panel; Complete Time: 20:33 rn 03/03 19:22 Order name: Urine Microscopic Only; Complete Time: 23:29 rn 03/03 19:22 Order name: Troponin (emerg Dept Use Only); Complete Time: 20:33 rn 03/03 19:22 Order name: LFT's; Complete Time: 20:33 rn 03/03 19:22 Order name: Lipase; Complete Time: 20:33 rn 03/03 19:22 Order name: XRAY Chest Pa And Lat (2 Views); Complete Time: 20:33 rn 03/03 19:48 Order name: N-Terminal Pro-brain Natriuretic Peptide; Complete Time: 20:33 rn 03/03 19:52 Order name: Urine Dipstick--Ancillary (enter results); Complete Time: 20:00 mw2 03/03 20:33 Order name: CT Chest For PE Angio rn 03/03 20:55 Order name: Urine Culture EDMS 03/03 19:22 Order name: IV Start; Complete Time: 19:48 rn 03/03 19:22 Order name: Urine Dipstick-Ancillary (obtain specimen); Complete Time: 19:48 rn 03/03 19:22 Order name: EKG; Complete Time: 19:22 rn 03/03 19:22 Order name: EKG - Nurse/Tech; Complete Time: 19:48 rn EC:48 Rate is 50 beats/min. Rhythm is regular. QRS [place] is Normal. [place] interval is normal. QRS rn interval is normal. QT interval is normal. No Q waves. T waves are Normal. No ST changes noted. Clinical impression: Sinus bradycardia. Interpreted by me. Reviewed by me. Administered Medications: 20:13 Drug: Xopenex 1.25 mg Route: Inhalation; 20:14 Drug: NS 0.9% 1000 ml Route: IV; Rate: 1000 ml; Site: right antecubital; 20:46 Follow up: Response: No adverse reaction; IV Status: Order to discontinue infusion 20:14 Drug: Zofran 4 mg Route: IVP; Site: right antecubital; 20:46 Follow up: Response: No adverse reaction; Nausea is decreased 22:18 CANCELLED (Duplicate Order): Lasix 20 mg IVP once rn 22:34 Drug: Lasix 40 mg Route: IVP; Site: right antecubital; 23:49 Follow up: Response: No adverse reaction 22:55 Drug: SOLU-Medrol 125 mg Route: IVP; Site: right antecubital; 23:50 Follow up: Response: No adverse reaction Disposition: 03/03/19 23:28 Discharged to Home. Impression: Dyspnea, unspecified, Pleural effusion, not elsewhere classified, Atelectasis. - Condition is Stable. - Discharge Instructions: Atelectasis, Adult, Pleural Effusion, Shortness of Breath. - Prescriptions for Prednisone 20 mg Oral Tablet - take 3 tablet by ORAL route once daily for 5 days; 15 tablet. Albuterol Sulfate 90 mcg/actuation - inhale 1-2 puff by INHALATION route every 4-6 hours; 1 Inhaler. Zofran ODT 4 mg Oral tablet,disintegrating - place 1 tablet by TRANSLINGUAL route every 8 hours As needed; 20 tablet. - Medication Reconciliation Form, Thank You Letter, Antibiotic Education, Prescription Opioid Use form. - Follow up: Dennis Norris; When: 2 - 3 days; Reason: Recheck today's complaints, Re-evaluation by your physician. - Problem is an ongoing problem. - Symptoms are unchanged. Signatures: Dispatcher [employer] EDMS Ashish De Los Santos MD MD rn Attema, Lee, RN RN la1 [place], Winsy Corrections: (The following items were deleted from the chart) 22:18 22:18 Lasix 20 mg IVP once ordered. rn rn 23:50 23:28 03/03/2019 23:28 Discharged to Home. Impression: Dyspnea, unspecified; Pleural wh effusion, not elsewhere classified; Atelectasis. Condition is Stable. Discharge Instructions: Atelectasis, Adult, Pleural Effusion, Shortness of Breath. Prescriptions for Prednisone 20 mg Oral Tablet - take 3 tablet by ORAL route once daily for 5 days; 15 tablet, Albuterol Sulfate 90 mcg/actuation - inhale 1-2 puff by INHALATION route every 4-6 hours; 1 Inhaler. and Forms are Medication Reconciliation Form, Thank You Letter, Antibiotic Education, Prescription Opioid Use. Follow up: Dennis Norris; When: 2 - 3 days; Reason: Recheck today's complaints, Re-evaluation by your physician. Problem is an ongoing problem. Symptoms are unchanged. rn
[2019-03-04 00:39] VITALS: TEMP 97.4
[2019-03-04 00:41] VITALS: BP 121/77; O2SAT 97
--- NOTE | 2019-03-04 05:14 | EKG ---
Test Date: 2019-03-03 Test Time: 19:36:48 Pcat Instructor: ROSA M MEASUREMENT RESULTS: Intervals: Rate: 50 RI: 118 QRSD: 98 QT: 422 QTc: 384 [place]: P: 35 RI: 118 QRS: 58 T: 55 INTERPRETIVE STATEMENTS: Sinus bradycardia Otherwise normal ECG Compared to ECG 02/24/2019 09:44:22 Sinus rhythm no longer present Electronically Signed On 03-04-19 05:13:40 CDT by Eber Connors
--- NOTE | 2019-03-04 10:19 | RAD REPORT ---
EXAM DESCRIPTION: CT - Chest For Pe Angio - 03/04/2019 6:24 am CLINICAL HISTORY: Dyspnea. Recent surgery. TECHNIQUE: Chest CTA. 2.0 mm reconstructed axial images were obtained. Coronal and sagittal reformat ramsey images were obtained. Coronal and sagittal MIP images were obtained. DOSE OPTIMIZATION: This facility uses dose optimization techniques as appropriate to perform exams, including at least one of the following techniques: 1. Automated exposure control. 2. Adjustment of the mA and/or kV according to patient size (this includes techniques or standardized protocols for targeted exams where dose is matched to the indication/reason for exam, i.e. extremiti es or head). 3. Use of iterative reconstructive technique. INTRAVENOUS CONTRAST: Not documented. Please refer to medical record. COMPARISON: 06/23/2018. FINDINGS: Lung [place]: There is mild dependent bibasilar atelectasis. Mediastinal Structures: There is no evidence of aortic aneurysm or dissection. There is no significant pericardial effusion. There is no adenopathy. Pulmonary Arteries: Normal. Pleural Space: There are tiny pleural effusions. Axillae: No adenopathy. Soft Tissues: Bilateral breast implants are demonstrated. There are is severe soft tissue swelling, skin thickening with a mild amount gas formation noted abou t the left breast. These findings could be postsurgical in nature. Upper Abdomen: Normal. Bony Structures: No suspicious lesions. IMPRESSION: 1. No evidence pulmonary embolus. 2. No active infiltrates. 3. Small pleural effusions. 4. Findings suggestive of postsurgical changes in the left breast. Clinical correlation recommended. Electronically signed by: Maurilio Fallon MD 03/03/2019 9:43 PM CDT Due to temporary technical issues with the PACS/Fluency reporting system, reports are being signed by the in house radiologist as a courtesy to ensure prompt reporting. The interpreting radiologist is f ully responsible for the content of the report.
== END 2019-03-03 23:50 | disposition home or self-care (01) ==
LOC: ER 18:30
DX: R06.00 Dyspnea, unspecified (principal); J90 Pleural effusion, not elsewhere classified; J98.11 Atelectasis
CPT/HCPCS: 96361; 93005; 87088; 85025; 87086; 80048; 36415; 80076; 84484; 83690; 83880; 71275; 71046; 96375; 96374; 99285; Q9967; J1940; J7030; J2930; J2405; 81003; 81015

== ENCOUNTER 2019-04-09 17:01 | Emergency (ER) | payer BC ==
--- OUTSIDE RECORDS SUMMARY | 2019-04-09 17:20 | XMS REPORT ---
:1960 [facility] Address [address] [place] [address] Dr. Tyson [address] [place] [id number] Care Team Providers Name Role Phone Unavailable Unavailable Unavailable Problems This patient has no known problems. Allergies, Adverse Reactions, Alerts This patient has no known allergies or adverse reactions. Medications This patient has no known medications.
--- NOTE | 2019-04-09 19:16 | ER ---
Nurse's Notes [facility] Name: Marisa Baker Age: 58 yrs Sex: Female : 1960 Arrival Date: 04/09/2019 Time: 17:03 Bed 20 Private MD: Diagnosis: Unspecified open wound of left breast Presentation: 04/09 17:03 Presenting complaint: Patient states: pt had a left breast biopsy done about 2 months sv ago here and it healed. Pt reports that the incision has now opened up and drainage. Transition of care: patient was not received from another setting of care. Onset of symptoms was April 09, 2019. Care prior to arrival: None. 17:03 Method Of Arrival: Ambulatory sv 17:03 Acuity: YESSI 3 sv 17:32 Risk Assessment: Do you want to hurt yourself or someone else? Patient reports no em desire to harm self or others. Initial Sepsis Screen: Does the patient meet any 2 criteria? No. Patient's initial sepsis screen is negative. Does the patient have a suspected source of infection? Yes: Skin breakdown/wound. Historical: - Allergies: 17:04 diphenhydramine HCl; irritability; sv - PMHx: 17:04 "small blood clot somewhere"; CVA; sv - Immunization history:: Adult Immunizations up to date. - Social history:: Smoking status: Patient/guardian denies using tobacco. - Ebola Screening: : Patient negative for fever greater than or equal to 101.5 degrees Fahrenheit, and additional compatible Ebola Virus Disease symptoms Patient denies exposure to infectious person Patient denies travel to an Ebola-affected area in the 21 days before illness onset No symptoms or risks identified at this time. Screenin:32 Abuse screen: Denies threats or abuse. Nutritional screening: No deficits noted. em Tuberculosis screening: No symptoms or risk factors identified. Fall Risk None identified. Assessment: 17:32 General: Appears in no apparent distress. comfortable, Behavior is calm, cooperative, em Reports abscess to left breast for 2 months, reports "you can put a pencil through it" Denies fever. Pain: Complains of pain in left breast Pain does not radiate. Pain currently is 5 out of 10 on a pain scale. Neuro: Level of Consciousness is awake, alert, obeys commands, Oriented to person, place, time, situation, Appropriate for age. Cardiovascular: Capillary refill < 3 seconds Patient's skin is warm and dry. Respiratory: Airway is patent Respiratory effort is even, unlabored, Respiratory pattern is regular, symmetrical. Derm: Skin is intact, is healthy with good turgor, Skin is pink, warm \\T\\ dry. Musculoskeletal: Capillary refill < 3 seconds, Range of motion: intact in all extremities. 17:35 Reassessment: The previous assessment is accurate. Call light remains within reach. ss 18:11 Reassessment: Patient appears in no apparent distress at this time. wheeled to US via em wheelchair. 19:15 Reassessment: Patient appears in no apparent distress at this time. Patient and/or wh family updated on plan of care and expected duration. Pain level reassessed. Patient is alert, oriented x 3, equal unlabored respirations, skin warm/dry/pink. Vital Signs: 17:04 BP 139 / 85; Pulse 71; Resp 16; Temp 98.6; Pulse Ox 95% ; Weight 71.21 kg; Height 5 ft. sv 3 in. (160.02 cm); Pain 5/10; 19:30 BP 132 / 87; Pulse 59; Resp 18; Pulse Ox 98% on R/A; wh 17:04 Body Mass Index 27.81 (71.21 kg, 160.02 cm) sv ED Course: 17:03 Patient arrived in ED. sv 17:04 Triage completed. sv 17:05 Arm band placed on. sv 17:07 Lizz Walsh [facility]-C [facility]. kb 17:07 Daniel Patel MD is Attending Physician. kb 17:11 Luis E Wayne LVN is Primary Nurse. em 17:32 Patient has correct armband on for positive identification. Placed in gown. Bed in low em position. Call light in reach. 18:28 US Extrmty Nonvasular Limited In Process Unspecified. EDMS 19:31 No provider procedures requiring assistance completed. Patient did not have IV access during this emergency room visit. Administered Medications: 19:30 Drug: Bactrim (160 mg-800 mg (DS) 1 tablet Route: PO; wh 19:32 Follow up: Response: No adverse reaction Outcome: 19:15 Discharge ordered by . kb 19:31 Discharged to home ambulatory. wh 19:31 Condition: stable 19:31 Discharge instructions given to patient, Instructed on discharge instructions, follow up and referral plans. medication usage, wound care, Demonstrated understanding of instructions, follow-up care, medications, wound care, Prescriptions given X 1. 19:33 Patient left the ED. Signatures: Dispatcher [employer] EDLizz Hernandez, NALINI ALLEN-Leticia Blancas, AMY RN Luis E Sparrow, CHANNEL PROCESS SUPERVISOR CHANNEL PROCESS SUPERVISOR Sherry Solis RN RN Reza Ramírez Corrections: (The following items were deleted from the chart) 17:06 17:04 Temp 98.6F; 71.21 kg; Height 5 ft. 3 in.; BMI: 27.8; Pain 5/10; sv sv
--- NOTE | 2019-04-09 19:16 | EDPHYS ---
Physician Documentation [facility] Name: Marisa Baker Age: 58 yrs Sex: Female : 1960 Arrival Date: 04/09/2019 Time: 17:03 Bed 20 Private MD: ED Physician Daniel Patel HPI: 04/09 17:45 This 58 yrs old Female presents to ER via Ambulatory with complaints of open kb wound. 17:45 open, draining wound. Description: draining, erythematous. Onset: The symptoms/episode kb began/occurred 3 day(s) ago. Possible cause(s): biopsy. Associated signs and symptoms: Pertinent positives: drainage, erythema. Modifying factors: the symptoms are alleviated by nothing, the symptoms are aggravated by squeezing the lesion and expressing the contents. Severity of symptoms: At their worst the symptoms were mild, in the emergency department the symptoms are unchanged. The patient has not experienced similar symptoms in the past. The patient has not recently seen a physician. Pt reports she had a breast biopsy 1.5-2 months ago. States it was healing well, then one spot opened up 3 days ago and has been draining. Came today because she has implants and didn't want to let an infection spread to that. Reports Dr Owens did the biopsy, but he is out of town. Historical: - Allergies: 17:04 diphenhydramine HCl; irritability; sv - PMHx: 17:04 "small blood clot somewhere"; CVA; sv - Immunization history:: Adult Immunizations up to date. - Social history:: Smoking status: Patient/guardian denies using tobacco. - Ebola Screening: : Patient negative for fever greater than or equal to 101.5 degrees Fahrenheit, and additional compatible Ebola Virus Disease symptoms Patient denies exposure to infectious person Patient denies travel to an Ebola-affected area in the 21 days before illness onset No symptoms or risks identified at this time. ROS: 17:38 Constitutional: Negative for fever, chills, and weight loss, Neck: Negative for injury, kb pain, and swelling, Cardiovascular: Negative for chest pain, palpitations, and edema, Respiratory: Negative for shortness of breath, cough, wheezing, and pleuritic chest pain, Abdomen/GI: Negative for abdominal pain, nausea, vomiting, diarrhea, and constipation, Back: Negative for injury and pain, MS/Extremity: Negative for injury and deformity, Neuro: Negative for headache, weakness, numbness, tingling, and seizure. 17:38 Skin: Positive for of the left breast, open wound with drainage and redness. Exam: 17:38 Constitutional: This is a well developed, well nourished patient who is awake, alert, kb and in no acute distress. Head/Face: Normocephalic, atraumatic. ENT: Nares patent. No nasal discharge, no septal abnormalities noted. Tympanic membranes are normal and external auditory canals are clear. Oropharynx with no redness, swelling, or masses, exudates, or evidence of obstruction, uvula midline. Mucous membranes moist. Neck: Trachea midline, no thyromegaly or masses palpated, and no cervical lymphadenopathy. Supple, full range of motion without nuchal rigidity, or vertebral point tenderness. No Meningismus. Cardiovascular: Regular rate and rhythm with a normal S1 and S2. No gallops, murmurs, or rubs. Normal PMI, no JVD. No pulse deficits. Respiratory: Lungs have equal breath sounds bilaterally, clear to auscultation and percussion. No rales, rhonchi or wheezes noted. No increased work of breathing, no retractions or nasal flaring. Abdomen/GI: Soft, non-tender, with normal bowel sounds. No distension or tympany. No guarding or rebound. No evidence of tenderness throughout. Back: No spinal tenderness. No costovertebral tenderness. Full range of motion. MS/ Extremity: Pulses equal, no cyanosis. Neurovascular intact. Full, normal range of motion. Neuro: Awake and alert, GCS 15, oriented to person, place, time, and situation. Cranial nerves II-XII grossly intact. Motor strength 5/5 in all extremities. Sensory grossly intact. Cerebellar exam normal. Normal gait. 17:38 Skin: open wound to left breast at 3 o'clock that is the size of a stir stick. normal temperature, no warmth. No active drainage, but pt reports it drains at time. tender to palpation around wound. slight redness around wound, no cellulitis or abscess appreciated . Vital Signs: 17:04 BP 139 / 85; Pulse 71; Resp 16; Temp 98.6; Pulse Ox 95% ; Weight 71.21 kg; Height 5 ft. sv 3 in. (160.02 cm); Pain 5/10; 19:30 BP 132 / 87; Pulse 59; Resp 18; Pulse Ox 98% on R/A; wh 17:04 Body Mass Index 27.81 (71.21 kg, 160.02 cm) sv MDM: 17:07 Patient medically screened. kb 17:38 Data reviewed: vital signs, nurses notes. Data interpreted: Pulse oximetry: on room air kb is 95 %. Interpretation: normal. 19:15 Counseling: I had a detailed discussion with the patient and/or guardian regarding: the kb historical points, exam findings, and any diagnostic results supporting the discharge/admit diagnosis, radiology results, the need for outpatient follow up, a family practitioner, to return to the emergency department if symptoms worsen or persist or if there are any questions or concerns that arise at home. ED course: Naroomi reports no abscess formation . 04/09 17:19 Order name: US [place] Nonvasular Limited Administered Medications: 19:30 Drug: Bactrim (160 mg-800 mg (DS) 1 tablet Route: PO; 19:32 Follow up: Response: No adverse reaction Disposition: 04/10 07:24 Co-signature as Attending Physician, Daniel Patel MD I agree with the assessment and kdr plan of care. Disposition: 04/09/19 19:15 Discharged to Home. Impression: Unspecified open wound of left breast. - Condition is Stable. - Discharge Instructions: Wound Infection, [id number]. - Prescriptions for Bactrim DS 800- 160 mg Oral Tablet - take 1 tablet by ORAL route every 12 hours for 10 days; 20 tablet. - Medication Reconciliation Form, Thank You Letter, Antibiotic Education, Prescription Opioid Use form. - Follow up: Emergency Department; When: As needed; Reason: Worsening of condition. Follow up: Private Physician; When: 2 - 3 days; Reason: Recheck today's complaints, Continuance of care, Re-evaluation by your physician. Signatures: Dispatcher [employer] Lizz Walker, NALINI ALLEN-Leticia Blancas RN RN sv Rittger, Kevin, MD MD kdr Munoz, Edgar, MASTER CONTROL ENGINEER MASTER CONTROL ENGINEER Reza Burk Corrections: (The following items were deleted from the chart) 04/09 19:33 19:15 04/09/2019 19:15 Discharged to Home. Impression: Unspecified open wound of left wh breast. Condition is Stable. Forms are Medication Reconciliation Form, Thank You Letter, Antibiotic Education, Prescription Opioid Use. Follow up: Emergency Department; When: As needed; Reason: Worsening of condition. Follow up: Private Physician; When: 2 - 3 days; Reason: Recheck today's complaints, Continuance of care, Re-evaluation by your physician. kb
[2019-04-09] MEDS ORDERED: SMZ./TMP. 800/160 MG TABLET ONE (19:27)
--- NOTE | 2019-04-09 19:30 | RAD REPORT ---
EXAM DESCRIPTION: US - Extremity Nonvascular Limited - 04/09/2019 6:28 pm CLINICAL HISTORY: Breast pain, draining wound lateral left breast COMPARISON: None. FINDINGS: Sonographic evaluation of the lateral left breast tissues seen at the area of concern, anastacio n and drainage. Patient is status post biopsy 4-5 weeks earlier. An amorphous sub centimeter area of hypoechoic material is present in the left breast area of pain. T his could be old blood or fluid. Infectious or inflammatory fluid is possible. This is a very small a nakia with no drainable fluid collection identifiable. IMPRESSION: Small sub centimeter collection lateral left breast could be infectious material. This i s an a amorphous stellate collection not currently amenable to drainage or aspiration.
[2019-04-09 20:48] VITALS: TEMP 98.6
[2019-04-09 20:50] VITALS: BP 132/87; O2SAT 98
== END 2019-04-09 19:33 | disposition home or self-care (01) ==
LOC: ER 17:01
DX: S21.002A Unspecified open wound of left breast, initial encounter (principal); Z98.890 Other specified postprocedural states; Z88.8 Allergy status to other drugs, medicaments and biological substances
CPT/HCPCS: 76882; 99283

== ENCOUNTER 2019-11-04 00:21 | Emergency (ER) | payer BC ==
--- OUTSIDE RECORDS SUMMARY | 2019-11-04 00:22 | XMS REPORT | Continuity of Care Document ---
:1960 Author Organization [facility] t Address [address] [place] [address] Care Team Providers Name Role Phone Madhuri LIN Attending Clinician Problems This patient has no known problems. Allergies, Adverse Reactions, Alerts This patient has no known allergies or adverse reactions. Medications This patient has no known medications. Procedures This patient has no known procedures. Encounters Start End Encounter Admission Attending Care Care Encounter Source Date/Time Date/Time Type Type Clinicians Facility Department ID 2019-10-07 2019-10-07 Refill BRIGID Dhaliwal [id number] 00:00:00 00:00:00 Brit Caldwell [id number] Aamir [id number] Professio [phone] [address] Building 2019-02-04 2019-02-04 Office BRIGID Dhaliwal [id number] 08:19:51 08:42:41 Visit Brit Caldwell [id number] Aamir [id number] Professio [phone] [address] [facility] Results This patient has no known results.
--- OUTSIDE RECORDS SUMMARY | 2019-11-04 00:23 | XMS REPORT | Summary of Care ---
:1960 Author Organization [facility] Address [address] [place] [address] Care Team Providers Name Role Phone Pcp, Patient Does Not Have A Primary Care Provider +[id number] 0-0000 Reason for Visit Reason Comments Refill Request Encounter Details Date Type Department Care Team Description 10/07/2019 Refill [facility] Tammy Dhaliwal PA-C Refill Request Healthcare- [address], [address] [place] [address] [place] [address] [phone] Allergies No Known Allergiesdocumented as of this encounter (statuses as of 10/07/2019) Medications Medication Sig Dispensed Refills Start Date End Date Status acetaminophen Take 500 mg 0 Acti ve (TYLENOL EXTRA by mouth STRENGTH) 500 mg every 6 tablet (six) hours as needed. ibuprofen (ADVIL) Take 200 mg 0 Active 200 mg tablet by mouth every 6 (six) hours as needed. acetaminophen-codei May take 1-2 40 Tab 0 12/12/2014 Active ne (TYLENOL #3) tabs every 6 300-30 mg tablet hours for pain azithromycin 500 mg Take 1 5 tablet 0 01/08/2017 Active tabletIndications: tablet by Acute non-recurrent mouth daily. maxillary sinusitis fluticasone Use 2 Sprays 16 g 0 01/08/2017 Acti ve (FLONASE) 50 in each mcg/actuation nasal nostril sprayIndications: daily. Acute non-recurrent maxillary sinusitis estradiol 0.025 Apply 1 4 Patch 5 10/07/2019 Act bahman mg/24 hr Patch to patchIndications: skin weekly. Postmenopausal symptoms estradiol 0.025 Apply 1 4 Patch 5 02/04/2019 Dis continued mg/24 hr Patch to 0 (Reorder) patchIndications: skin weekly. Postmenopausal symptoms documented as of this encounter (statuses as of 10/07/2019) Active Problems Problem Noted Date Obesity (BMI 30-39.9) 11/04/2018 Cellulitis 10/23/2016 Encounter for routine gynecological examination 2012 Overview: 10/19/2012- negative colorectal cards. Mammogram Impression: BI-RAD: 2, benign. No mammographic evidence for malignancy. Annual mammography is the recommendation for the patient. ICD10 Diagnosis Term Varnish Maker Utility H/O: hysterectomy 10/08/2012 Overview: Completed for heavy bleeding. Partial hy st. Elevated blood pressure reading without diagnosis of h ypertension 10/08/2012 Overview: Referral given to local ER Asthma 10/08/2012 Overview: ICD10 Diagnosis Term Varnish Maker Utility BV (bacterial vaginosis) 10/08/2012 Dysplasia of cervix 10/08/2012 Overview: Hx of cone biopsy and cryotherapy. ICD10 Diagnosis Term Varnish Maker Utility documented as of this encounter (statuses as of 10/07/2019) Immunizations Name Administration Dates Next Due Td 10/08/2008 documented as of this encounter Social History Tobacco Use Types Packs/Day Years Used Date Former Smoker Cigarettes 32 Quit: 08/09/19 11 Smokeless Tobacco: Never Used Alcohol Use Drinks/Week oz/Week Comments No Sex Assigned at Date Recorded Not on file Job Start Date Occupation Industry Not on file Not on file Not on file Travel History Travel Start Travel End No recent travel history available. documented as of this encounter Last Filed Vital Signs Not on filedocumented in this encounter Plan of Treatment Date Type Specialty Care Team Description 02/07/2020 Office Visit Obstetrics & Gynecology Brit Dhaliwal PA-C [address] [phone] Health Maintenance Due Date Last Done Comments HEPATITIS C (HCV) SCREEN 1960 PNEUMOCOCCAL 0-64 YEARS COMBINED SERIES (1 of 1 - 09/11/1967 PPSV23) DTaP,Tdap,and Td Vaccines (1 - Tdap) 1972 10/08/2008 Breast Cancer Screening (MAMMOGRAM) 2001 COLONOSCOPY 09/11/2011 Zoster Recombinant Vaccine (SHINGRIX) (1 of 2) 09/11/2011 PAP SMEAR 10/09/2015 10/08/2012 LUNG CANCER SCREEN: Recommended for age 55-80 with 30 2016 + pack year history INFLUENZA VACCINE (Season Ended) 2020 documented as of this encounter Results Not on filedocumented in this encounter Visit Diagnoses Diagnosis Postmenopausal symptoms Unspecified menopausal and postmenopausa l disorder documented in this encounter Insurance Payer Benefit Plan Subscriber ID Effective Dates Phone Address Type / Group BCBS OF BCBS [facility] [id number] 2017-Jany [phone] [address] PPO/POS [place] - OUT OF t 7 [id number] [place] [address] documented as of this encounter
--- NOTE | 2019-11-04 00:44 | ER ---
Nurse's Notes [facility] Name: Marisa Baker Age: 59 yrs Sex: Female : 1960 Arrival Date: 11/04/2019 Time: 00:26 Bed 13 Private MD: Diagnosis: Acute contact otitis externa Presentation: 11/03 00:37 Chief complaint: Patient states: Pain to right ear that began yesterday, states pain lp1 and itching to ear canal; Put Peroxide in ear, states no relief. Coronavirus screen: Proceed with normal triage. Ebola Screen: No symptoms or risks identified at this time. Initial Sepsis Screen: Does the patient meet any 2 criteria? No. Patient's initial sepsis screen is negative. Does the patient have a suspected source of infection? No. Patient's initial sepsis screen is negative. Risk Assessment: Do you want to hurt yourself or someone else? Patient reports no desire to harm self or others. Onset of symptoms was November 03, 2019. 00:37 Method Of Arrival: Ambulatory lp1 00:37 Acuity: YESSI 4 lp1 Historical: - Allergies: 00:40 diphenhydramine HCl; irritability; lp1 00:40 Codeine; lp1 - Home Meds: 00:40 None [Active]; lp1 - PMHx: 00:40 "small blood clot somewhere"; CVA; lp1 - PSHx: 00:40 Cholecystectomy; Hysterectomy; ; Tonsillectomy; lp1 - Immunization history:: Adult Immunizations up to date. - Social history:: Smoking status: Patient/guardian denies using tobacco, the patient reports quitting approximately 10 years ago. Screenin:40 Abuse screen: Denies threats or abuse. Denies injuries from another. Nutritional lp1 screening: No deficits noted. Tuberculosis screening: No symptoms or risk factors identified. Fall Risk None identified. Assessment: 00:40 General: Appears in no apparent distress. Behavior is calm, cooperative, appropriate lp1 for age. Pain: Complains of pain in right ear Pain currently is 8 out of 10 on a pain scale. Neuro: No deficits noted. Cardiovascular: Patient's skin is warm and dry. Respiratory: No deficits noted. GI: No signs and/or symptoms were reported involving the gastrointestinal system. : No signs and/or symptoms were reported regarding the genitourinary system. EENT: Reports pain in right ear. Derm: Skin is pink, warm \\T\\ dry. Musculoskeletal: No deficits noted. Vital Signs: 00:37 BP 166 / 100; Pulse 66; Resp 18; Temp 97.7(TE); Pulse Ox 100% on R/A; Weight 71.21 kg lp1 (R); Height 5 ft. 3 in. (160.02 cm); Pain 8/10; 00:37 Body Mass Index 27.81 (71.21 kg, 160.02 cm) lp1 ED Course: 00:26 Patient arrived in ED. cl3 00:37 Leon Covarrubias, RN is Primary Nurse. jb4 00:38 Ngoc Deras [facility]NP-C [facility]. snw 00:38 Ashish De Los Santos MD is Attending Physician. snw 00:39 Triage completed. lp1 00:39 Arm band placed on. lp1 00:41 Patient has correct armband on for positive identification. lp1 00:55 No provider procedures requiring assistance completed. Patient did not have IV access jb4 during this emergency room visit. Administered Medications: 00:48 Drug: TORadol 30 mg Route: IM; Site: right gluteus; jb4 00:55 Follow up: Response: No adverse reaction jb4 00:48 Drug: Cortisporin Drops 4 drops Route: Otic; Site: right ear; jb4 00:55 Follow up: Response: No adverse reaction jb4 Outcome: 00:42 Discharge ordered by MD. snw 00:55 Discharged to home ambulatory. jb4 00:55 Condition: stable 00:55 Discharge instructions given to patient, Instructed on discharge instructions, follow up and referral plans. medication usage, Demonstrated understanding of instructions, follow-up care, medications, Prescriptions given X 2. 00:56 Patient left the ED. jb4 Signatures: Ngoc Deras FNP-C PROPERTY INSURANCE AGENT-Csnw Christina Mtz RN RN lp1 Leon Covarrubias RN RN jb4 Tasha Salmon cl3
--- NOTE | 2019-11-04 00:45 | EDPHYS ---
Physician Documentation [facility] Name: Marisa Baker Age: 59 yrs Sex: Female : 1960 Arrival Date: 11/04/2019 Time: 00:26 Bed 13 Private MD: ED Physician Ashish De Los Santos HPI: 11/03 00:44 This 59 yrs old Female presents to ER via Ambulatory with complaints of Ear snw Pain. 00:44 The patient presents with pain, swelling, tenderness. The complaints affect the right snw ear. Onset: The symptoms/episode began/occurred suddenly. Associated signs and symptoms: The patient has no apparent associated signs or symptoms. Severity of symptoms: At their worst the symptoms were moderate severe in the emergency department the symptoms are unchanged. The patient has not experienced similar symptoms in the past. It is unknown whether or not the patient has recently seen a physician. Historical: - Allergies: 00:40 diphenhydramine HCl; irritability; lp1 00:40 Codeine; lp1 - Home Meds: 00:40 None [Active]; lp1 - PMHx: 00:40 "small blood clot somewhere"; CVA; lp1 - PSHx: 00:40 Cholecystectomy; Hysterectomy; ; Tonsillectomy; lp1 - Immunization history:: Adult Immunizations up to date. - Social history:: Smoking status: Patient/guardian denies using tobacco, the patient reports quitting approximately 10 years ago. ROS: 00:45 Constitutional: Negative for fever, chills, and weight loss, Eyes: Negative for injury, snw pain, redness, and discharge, Neck: Negative for injury, pain, and swelling, Cardiovascular: Negative for chest pain, palpitations, and edema, Respiratory: Negative for shortness of breath, cough, wheezing, and pleuritic chest pain, Abdomen/GI: Negative for abdominal pain, nausea, vomiting, diarrhea, and constipation, Back: Negative for injury and pain, : Negative for injury, bleeding, discharge, and swelling, MS/Extremity: Negative for injury and deformity, Skin: Negative for injury, rash, and discoloration, Neuro: Negative for headache, weakness, numbness, tingling, and seizure, Psych: Negative for depression, anxiety, suicide ideation, homicidal ideation, and hallucinations. 00:45 ENT: Positive for ear pain. Exam: 00:46 Constitutional: This is a well developed, well nourished patient who is awake, alert, snw and in no acute distress. Head/Face: Normocephalic, atraumatic. Eyes: Pupils equal round and reactive to light, extra-ocular motions intact. Lids and lashes normal. Conjunctiva and sclera are non-icteric and not injected. Cornea within normal limits. Periorbital areas with no swelling, redness, or edema. Neck: Trachea midline, no thyromegaly or masses palpated, and no cervical lymphadenopathy. Supple, full range of motion without nuchal rigidity, or vertebral point tenderness. No Meningismus. Chest/axilla: Normal chest wall appearance and motion. Nontender with no deformity. No lesions are appreciated. Cardiovascular: Regular rate and rhythm with a normal S1 and S2. No gallops, murmurs, or rubs. Normal PMI, no JVD. No pulse deficits. Respiratory: Lungs have equal breath sounds bilaterally, clear to auscultation and percussion. No rales, rhonchi or wheezes noted. No increased work of breathing, no retractions or nasal flaring. Abdomen/GI: Soft, non-tender, with normal bowel sounds. No distension or tympany. No guarding or rebound. No evidence of tenderness throughout. Back: No spinal tenderness. No costovertebral tenderness. Full range of motion. Skin: Warm, dry with normal turgor. Normal color with no rashes, no lesions, and no evidence of cellulitis. MS/ Extremity: Pulses equal, no cyanosis. Neurovascular intact. Full, normal range of motion. Neuro: Awake and alert, GCS 15, oriented to person, place, time, and situation. Cranial nerves II-XII grossly intact. Motor strength 5/5 in all extremities. Sensory grossly intact. Cerebellar exam normal. Normal gait. 00:46 ENT: Ear canal(s): erythema, that is moderate, swelling, that is moderate, of the right canal, no mastoid tenderness, Nose: is normal, Mouth: is normal, Posterior pharynx: no acute changes, Voice: is normal. Vital Signs: 00:37 BP 166 / 100; Pulse 66; Resp 18; Temp 97.7(TE); Pulse Ox 100% on R/A; Weight 71.21 kg lp1 (R); Height 5 ft. 3 in. (160.02 cm); Pain 8/10; 00:37 Body Mass Index 27.81 (71.21 kg, 160.02 cm) lp1 MDM: 00:38 Patient medically screened. snw 00:44 Data reviewed: vital signs, nurses notes. Data interpreted: Pulse oximetry: on room air snw is 100 %. Interpretation: normal. Counseling: I had a detailed discussion with the patient and/or guardian regarding: the historical points, exam findings, and any diagnostic results supporting the discharge/admit diagnosis, the presence of at least one elevated blood pressure reading (>120/80) during this emergency department visit, the need for outpatient follow up, to return to the emergency department if symptoms worsen or persist or if there are any questions or concerns that arise at home. Special discussion: I have referred the patient to see his PCP for further evaluation of high blood pressure. Based on the history and exam findings, there is no indication for further emergent testing or inpatient evaluation. I discussed with the patient/guardian the need to see the ENT specialist for further evaluation of the symptoms. I discussed with the patient/guardian the need to see the primary care provider for further evaluation of the symptoms. Administered Medications: 00:48 Drug: TORadol 30 mg Route: IM; Site: right gluteus; 4 00:55 Follow up: Response: No adverse reaction jb4 00:48 Drug: Cortisporin Drops 4 drops Route: Otic; Site: right ear; jb4 00:55 Follow up: Response: No adverse reaction jb4 Disposition: 02:28 Co-signature as Attending Physician, Ashish De Los Santos MD. rn Disposition: 11/04/19 00:42 Discharged to Home. Impression: Acute contact otitis externa. - Condition is Stable. - Discharge Instructions: Otitis Externa, Heat Therapy. - Prescriptions for Mobic 7.5 mg Oral Tablet - take 1 tablet by ORAL route every 12 hours take with food; 20 tablet. Ciprodex 0.3- 0.1 % Otic Drops, Suspension - instill 4 drop by OTIC route every 12 hours for 7 days , for ears ONLY; 1 Container. - Medication Reconciliation Form, Thank You Letter, Antibiotic Education, Prescription Opioid Use form. - Follow up: Emergency Department; When: As needed; Reason: Worsening of condition. Follow up: Private Physician; When: 2 - 3 days; Reason: Recheck today's complaints, Continuance of care, Re-evaluation by your physician. Signatures: Ngoc Deras, DENTAL ASSISTANT MEDICAL ASSISTANT-C DENTAL ASSISTANT MEDICAL ASSISTANT-Csnw Ashish De Los Santos MD MD rn Pena, Laura, RN RN lp1 Leon Covarrubias RN RN jb4 Corrections: (The following items were deleted from the chart) 00:56 00:42 11/04/2019 00:42 Discharged to Home. Impression: Acute contact otitis externa. jb4 Condition is Stable. Forms are Medication Reconciliation Form, Thank You Letter, Antibiotic Education, Prescription Opioid Use. Follow up: Emergency Department; When: As needed; Reason: Worsening of condition. Follow up: Private Physician; When: 2 - 3 days; Reason: Recheck today's complaints, Continuance of care, Re-evaluation by your physician. snw
[2019-11-04] MEDS ORDERED: NEOMY/POLY/HC 1% OTIC DROPS ONE (00:52)
[2019-11-04] MEDS ORDERED: KETOROLAC 30 MG/ML INJ ONE (00:52)
[2019-11-04 08:18] VITALS: BP 166/100; TEMP 97.7; O2SAT 100
== END 2019-11-04 00:56 | disposition home or self-care (01) ==
LOC: ER 00:21
DX: H60.531 Acute contact otitis externa, right ear (principal); Z86.73 Personal history of transient ischemic attack (TIA), and cerebral infarction without residual deficits; Z88.5 Allergy status to narcotic agent; Z88.8 Allergy status to other drugs, medicaments and biological substances
CPT/HCPCS: 96372; 99283

== ENCOUNTER 2020-01-20 21:53 | Emergency (ER) | payer BC ==
--- OUTSIDE RECORDS SUMMARY | 2020-01-20 21:56 | XMS REPORT | Summary of Care ---
:1960 Author Organization [facility] - [facility] Address [address] [place] [id number] Care Team Providers Name Role Phone Pcp, Patient Does Not Have A Primary Care Provider +[id number] Reason for Referral MRI/CAT Scan (STAT) Status Reason Specialty Diagnoses / Referred By Referred To Procedures Contact Contact New Request Diagnostic Diagnoses Generalized abdominal pain Davis Manzo, Radiology Procedures CT ABDOMEN PELVIS W CONTRAST [address] [facility] [id number] [place] [address] Reason for Visit Reason Comments Abdominal Pain Auth/Cert Status Reason Specialty Diagnoses / Referred By Referred To Procedures Contact Contact Emergency Medicine [facility] Em ergency Dept [address] [place] [address] Fax: Encounter Details Date Type Department Care Team Description 01/14/2020 Emergency ADC-Emergency Davis Manzo MD Generalized abdominal Department [address] [facility] pain (Primary Dx) [address] [facility] [id number] [place] [address] [place], [place] [phone] Allergies Active Allergy Reactions Severity Noted Date Comments Adhesive Tape-Silicones Other - See comments 0 Diphenhydramine Hcl Other - See comments 01/14/2020 "makes me climb the redman" Codeine Itching 01/14/2020 documented as of this encounter (statuses as of 01/14/2020) Medications Medication Sig Dispensed Refills Start Date End Date Status acetaminophen (TYLENOL Take 500 mg by 0 Active EXTRA STRENGTH) 500 mg mouth every 6 tablet (six) hours as needed. ibuprofen (ADVIL) 200 Take 200 mg by 0 Active mg tablet mouth every 6 (six) hours as needed. acetaminophen-codeine May take 1-2 40 Tab 0 12/12/2014 Active (TYLENOL #3) 300-30 mg tabs every 6 tablet hours for pain azithromycin 500 mg Take 1 tablet 5 tablet 0 01/08/2017 Active tabletIndications: by mouth daily. Acute non-recurrent maxillary sinusitis fluticasone (FLONASE) Use 2 Sprays in 16 g 0 01/08/2017 Active 50 mcg/actuation nasal each nostril sprayIndications: daily. Acute non-recurrent maxillary sinusitis estradiol 0.025 mg/24 Apply 1 Patch 4 Patch 5 10/07/2019 Active hr patchIndications: to skin weekly. Postmenopausal symptoms dicyclomine (BENTYL) Take 1 capsule 20 capsule 0 01/14/2020 Active 10 mg by mouth 4 capsuleIndications: (four) times Generalized abdominal daily for 5 pain days. documented as of this encounter (statuses as of 01/14/2020) Active Problems Problem Noted Date Obesity (BMI 30-39.9) 11/04/2018 Cellulitis 10/23/2016 Encounter for routine gynecological examination 2012 Overview: 10/19/2012- negative colorectal cards. Mammogram Impression: BI-RAD: 2, benign. No mammographic evidence for malignancy. Annual mammography is the recommendation for the patient. ICD10 Diagnosis Term Affiliate Marketing Specialist Utility H/O: hysterectomy 10/08/2012 Overview: Completed for heavy bleeding. Partial hy st. Elevated blood pressure reading without diagnosis of h ypertension 10/08/2012 Overview: Referral given to local ER Asthma 10/08/2012 Overview: ICD10 Diagnosis Term Affiliate Marketing Specialist Utility BV (bacterial vaginosis) 10/08/2012 Dysplasia of cervix 10/08/2012 Overview: Hx of cone biopsy and cryotherapy. ICD10 Diagnosis Term Affiliate Marketing Specialist Utility documented as of this encounter (statuses as of 01/14/2020) Immunizations Name Administration Dates Next Due Td 10/08/2008 documented as of this encounter Social History Tobacco Use Types Packs/Day Years Used Date Former Smoker Cigarettes 32 Quit: 08/09/19 11 Smokeless Tobacco: Never Used Alcohol Use Drinks/Week oz/Week Comments No Sex Assigned at Date Recorded Not on file COVID-19 Exposure Response Date Recorded In the last month, have you been in contact with No / Unsure 01/14/2020 4:56 AM CDT someone who was confirmed or suspected to have Coronavirus / COVID-19? documented as of this encounter Last Filed Vital Signs Vital Sign Reading Time Taken Comments Blood Pressure 134/84 01/14/2020 6:00 AM CDT Pulse 70 01/14/2020 6:00 AM CDT Temperature 37.4 C (99.4 F) 01/14/2020 4:54 AM CDT Respiratory Rate 13 01/14/2020 6:00 AM CDT Oxygen Saturation 95% 01/14/2020 6:00 AM CDT Inhaled Oxygen Concentration - - Weight 72.6 kg (160 lb) 01/14/2020 4:54 AM CDT Height - - Body Mass Index 28.34 02/04/2019 8:26 AM CDT documented in this encounter Discharge Instructions Davis Elkins MD - 01/14/2020 DIAGNOSIS Diagnoses that have been ruled out: None Diagnoses that are still under consideration: None Final diagnoses: Generalized abdominal pain NO LIFE-THREATENING FINDINGS ON TODAY'S EXAM. PROCEDURES IN THE ER TODAY: Orders Placed This Encounter Procedures CT ABDOMEN PELVIS W CONTRAST Complete Metabolic Panel CBC with Differential Lipase, Serum Urinalysis MEDICATIONS ADMINISTERED IN THE ER TODAY: Orders Placed This Encounter Medications DISCONTD: FENTanyl PF (SUBLIMAZE (PF)) injection 50 mcg acetaminophen (TYLENOL) tablet 650 mg iohexol (OMNIPAQUE 350 BULK-150 mL) injection 120 mL FENTanyl PF (SUBLIMAZE (PF)) injection 50 mcg YOUR PRESCRIPTIONS AND [id number] MEDICATION RECOMMENDATIONS: Bentyl SPECIAL CARE INSTRUCTIONS: Follow up with PCP Return to the ED if worsening of symptoms. FOLLOW-UP RECOMMENDATIONS: RECOMMEND FOLLOW-UP WITH A PRIMARY CARE PROVIDER OR SPECIALIST IN 2-5 DAYS, ESPECIALLY IF NO IMPROVEMENT IN SYMPTOMS. TO FOLLOW-UP WITHIN THE [facility], TRY THESE OPTIONS (CLINIC APPOINTMENTS AVAILABLE ON ILOP-WE-OWTY BASIS): 1. SCHEDULE AN APPOINTMENT ONLINE AT WWW.[facility] 2. OR CALL THE [facility] AT OR 3. OR CALL YOUR [facility] PHYSICIAN'S OFFICE DIRECTLY IF YOU ARE ALREADY AN ESTABLISHED [facility] PATIENT. OR, YOU MAY FOLLOW-UP WITH A PROVIDER OF YOUR CHOICE, SUCH : 1. A PHYSICIAN OF YOUR CHOICE 2. [facility], . LOCATIONS IN [facility] 3. [facility], [address] [place], [place]; [phone] RETURN TO ER FOR WORSENING OF SYMPTOMS. AttachmentsThe following attachments cannot be sent through Care Everywhere. Abdominal Pain, Adult (Czech)documented in this encounter ED Notes Delbert Blankenship RN - 01/14/2020 4:50 AM CDTPt reports that she tested positive for covid on Friday up by [place] positive, that all ofher symptoms resolved on Friday, and that since Friday she has developed central umbilical pain described as "labor pains but constant." LBM yesterday and normal. Patient denies n/v/d. Denies shortness of breath. 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 Recently diagnosed with Covid. No nausea, vomiting, back pain, fever or chills. She is currently on medications for GERD. No chest pain or SOB. Past Medical and Social History Past Medical History: Diagnosis Date Abnormal Pap smear Abnormal uterine bleeding Anemia Anesthesia complication Vomiting Asthma chemical induced asthma Menstrual disorder PID (pelvic inflammatory disease) STD (sexually transmitted disease) Trich at age 27 Social History Tobacco Use Smoking status: Former Smoker Years: 32.00 Types: Cigarettes Quit date: 08/08/2010 Years since quittin.4 Smokeless tobacco: Never Used Substance Use Topics Alcohol use: No Drug use: No Past Surgical History Past Surgical History: Procedure Laterality Date BLEPHAROPLASTY bilateral breast implants BREAST RECONSTRUC W OTHR TECHNIQ x 2 BUNIONECTOMY SECTION x3 CHOLECYSTECTOMY COLONOSCOPY DILATION AND CURETTAGE (SHX) HEMORRHOIDECTOMY HYSTERECTOMY TONSILLECTOMY TUBAL LIGATION Medications Medications FENTanyl PF (SUBLIMAZE (PF)) injection 50 mcg (has no administration in time range) acetaminophen (TYLENOL) tablet 650 mg (650 mg Oral Given 01/14/20 0607) iohexol (OMNIPAQUE 350 BULK-150 mL) injection 120 mL (120 mL Intravenous Given 01/14/20 0557) Allergies Allergies Allergen Reactions Adhesive Tape-Silicones Other - See comments Benadryl [Diphenhydramine Hcl] Other - See comments "makes me climb the redman" Codeine Itching Review of Systems Review of Systems Constitutional: Negative. HENT: Negative. Eyes: Negative. Respiratory: Negative. Cardiovascular: Negative. Gastrointestinal: Positive for abdominal pain. Genitourinary: Negative. Musculoskeletal: Negative. Skin: Negative. Neurological: Negative. Psychiatric/Behavioral: Negative. Endocrine: Endocrine negative Physical Exam BP (!) 131/94 | Pulse 74 | Temp 37.4 C (99.4 F) (Oral) | Resp 13 | Wt 72.6 kg (160 lb) | LMP 10/08/1988 | SpO2 95% | BMI 28.34 kg/m Physical Exam Vitals signs and nursing note reviewed. Constitutional: General: She is not in acute distress. Appearance: She is well-developed. She is not ill-appearing, toxic-appearing or diaphoretic. HENT: Head: Normocephalic and atraumatic. Right Ear: Ear canal and external ear normal. Left Ear: Ear canal and external ear normal. Nose: Nose normal. No mucosal edema or rhinorrhea. Right Sinus: No frontal sinus tenderness. Left Sinus: No frontal sinus tenderness. Mouth/Throat: Pharynx: Uvula midline. Eyes: General: Lids are normal. Conjunctiva/sclera: Conjunctivae normal. Pupils: Pupils are equal, round, and reactive to light. Neck: Musculoskeletal: Full passive range of motion without pain, normal range of motion and neck supple. Thyroid: No thyroid mass or thyromegaly. Vascular: No JVD. Trachea: Trachea and phonation normal. Cardiovascular: Rate and Rhythm: Normal rate and regular rhythm. Heart sounds: Normal heart sounds. Pulmonary: Effort: Pulmonary effort is normal. No tachypnea or respiratory distress. Breath sounds: Normal breath sounds. Abdominal: General: Bowel sounds are normal. There is no distension. Palpations: Abdomen is soft. There is no mass. Tenderness: There is abdominal tenderness. There is no guarding or rebound. Hernia: No hernia is present. Musculoskeletal: Normal range of motion. Lymphadenopathy: Cervical: No cervical adenopathy. Skin: Capillary Refill: Capillary refill takes less than 2 seconds. Findings: No rash. Neurological: Mental Status: She is alert and oriented to person, place, and time. GCS: GCS eye subscore is 4. GCS verbal subscore is 5. GCS motor subscore is 6. Cranial Nerves: No cranial nerve deficit. Sensory: No sensory deficit. Motor: No tremor or atrophy. Psychiatric: Behavior: Behavior normal. Thought Content: Thought content normal. Judgment: Judgment normal. Labs and Studies Recent Results (from the past 24 hour(s)) Complete Metabolic Panel Collection Time: 01/14/20 5:04 AM Result Value Ref Range NA 136 135 - 145 mmol/L K 4.1 3.5 - 5.0 mmol/L CL 104 98 - 108 mmol/L CO2 TOTAL 26 23 - 31 mmol/L AGAP 6 2 - 16 BUN 11 7 - 23 mg/dL GLUCOSE 100 70 - 110 mg/dL CREATININE 0.70 0.50 - 1.04 mg/dL TOTAL BILI 0.6 0.1 - 1.1 mg/dL CALCIUM 8.6 8.6 - 10.6 mg/dL T PROTEIN 7.3 6.3 - 8.2 g/dL ALBUMIN 4.2 3.5 - 5.0 g/dL ALK PHOS 77 34 - 122 U/L ALTv 34 5 - 35 U/L AST(SGOT) 37 13 - 40 U/L eGFR Calculation (Non-) 85.9 mL/min/1.73m2 eGFR Calculation () 104.2 mL/min/1.73m2 CBC with Differential Collection Time: 01/14/20 5:04 AM Result Value Ref Range WBC 4.12 (L) 4.30 - 11.10 10*3/L RBC 4.65 3.93 - 5.25 10*6/L HGB 13.5 11.6 - 15.0 g/dL HCT 40.8 35.7 - 45.2 % MCV 87.7 80.6 - 95.5 fL MCH 29.0 25.9 - 32.8 pg MCHC 33.1 31.6 - 35.1 g/dL RDW-SD 40.4 39.0 - 49.9 fL RDW-CV 12.4 12.0 - 15.5 % PLT 149 (L) 166 - 358 10*3/L MPV 10.9 9.5 - 12.9 fL NRBC/100 WBC 0.0 0.0 - 10.0 /100 WBCs NRBC x10^3 <0.01 10*3/L GRAN MAT (NEUT) % 56.1 % IMM GRAN % 0.50 % LYMPH % 29.4 % MONO % 13.1 % EOS % 0.7 % BASO % 0.2 % GRAN MAT x10^3(ANC) 2.31 1.88 - 7.09 10*3/uL IMM GRAN x10^3 <0.03 0.00 - 0.06 10*3/uL LYMPH x10^3 1.21 (L) 1.32 - 3.29 10*3/uL MONO x10^3 0.54 0.33 - 0.92 10*3/uL EOS x10^3 0.03 0.03 - 0.39 10*3/uL BASO x10^3 <0.03 0.01 - 0.07 10*3/uL Lipase, Serum Collection Time: 01/14/20 5:04 AM Result Value Ref Range LIPASE 242 (H) 0 - 220 U/L Urinalysis Collection Time: 01/14/20 5:04 AM Result Value Ref Range APPEARANCE Clear Clear COLOR Yellow Yellow PH 6.0 4.8 - 8.0 SP GRAVITY 1.019 1.003 - 1.030 GLU U QUAL Normal Normal BLOOD Negative Negative KETONES 5 mg/dL (A) Negative PROTEIN Negative Negative UROBILIN Normal Normal BILIRUBIN Negative Negative NITRITE Negative Negative LEUK JOSE Negative Negative RBC/HPF 2 0 - 3 HPF WBC/HPF 0 0 - 5 HPF BACTERIA Negative Negative MUCOUS Slight (A) Negative LPF SQ EPITH 1 HPF Hospital Encounter on 01/14/20 CT ABDOMEN PELVIS W CONTRAST Narrative EXAM: CT ABDOMEN AND PELVIS WITH CONTRAST HISTORY: 59-year-old female with acute generalized abdominal pain fever COMPARISON: None. TECHNIQUE AND FINDINGS: Contiguous axial imaging from the level of the lung bases through the pubic symphysis was performed after the uncomplicated administration of 120 cc of intravenous Omnipaque contrast. Coronal and sagittal reconstructions were obtained. Auto mA and/or iterative reconstruction were used to reduce radiation dose. FINDINGS: LOWER THORAX: The lung bases are clear. No cardiomegaly. LIVER: Normal contour. Subcentimeter hypodensities in the right hepatic lobe are too small to further characterize. GALLBLADDER AND BILIARY TREE: Prior cholecystectomy. No biliary ductal dilation. The CBD measures 0.4 cm SPLEEN: No splenomegaly. PANCREAS: No ductal dilation or masses. ADRENAL GLANDS: No adrenal nodules. KIDNEYS: No hydronephrosis or stones. Two subcentimeter cortical hypodensities in the upper pole of the right kidney has internal attenuation above simple fluid. This could be artifactual given the small size or may represent cysts with proteinaceous/hemorrhagic contents. PERITONEUM AND RETROPERITONEUM: No free air or fluid. LYMPH NODES: No lymphadenopathy. GI TRACT: No dilation or wall thickening. Sigmoid colon diverticulosis without pericolonic inflammatory changes. The appendix is normal. PELVIS/BLADDER: Prior hysterectomy. The there is diffuse bladder wall thickening likely due to underdistention. A urachal remnant is noted at the dome of the bladder extending to the umbilicus. Right ovarian follicle measures 1.8 cm with internal attenuation of simple fluid. VESSELS: Unremarkable. BONES AND SOFT TISSUES: No suspicious lytic or sclerotic bony lesions. Impression Sigmoid colon diverticulosis without diverticulitis. Two subcentimeter right renal cysts likely contain proteinaceous/hemorrhagic contents. However, these are incompletely characterized on this single phase CT. Preliminary Report Dictated by Resident: Elizabeth Pablo Orders and Treatments Orders Placed This Encounter Procedures CT ABDOMEN PELVIS W CONTRAST Complete Metabolic Panel CBC with Differential Lipase, Serum Urinalysis Orders Placed This Encounter Medications DISCONTD: FENTanyl PF (SUBLIMAZE (PF)) injection 50 mcg acetaminophen (TYLENOL) tablet 650 mg iohexol (OMNIPAQUE 350 BULK-150 mL) injection 120 mL FENTanyl PF (SUBLIMAZE (PF)) injection 50 mcg dicyclomine (BENTYL) 10 mg capsule Patient's Medications START taking these medications DICYCLOMINE (BENTYL) 10 MG CAPSULE Take 1 capsule by mouth 4 (four) times daily for 5 days. CONTINUE taking these medications which have NOT CHANGED ACETAMINOPHEN (TYLENOL EXTRA STRENGTH) 500 MG TABLET Take 500 mg by mouth every 6 (six) hours asneeded. ACETAMINOPHEN-CODEINE (TYLENOL #3) 300-30 MG TABLET May take 1-2 tabs every 6 hours for pain AZITHROMYCIN 500 MG TABLET Take 1 tablet by mouth daily. ESTRADIOL 0.025 MG/24 HR PATCH Apply 1 Patch to skin weekly. FLUTICASONE (FLONASE) 50 MCG/ACTUATION NASAL SPRAY Use 2 Sprays in each nostril daily. IBUPROFEN (ADVIL) 200 MG TABLET Take 200 mg by mouth every 6 (six) hours as needed. START taking Modified Medications as Prescribed No medications on file STOP taking these medications No medications on file Procedures Procedures MDM & Notes Coding Patient was evaluated for the complaint of Abdominal Pain ED Course as of Jan 13 630FriJan 14, 2020 0630 No acute findings on CT of the abdomen. Advised to continue medications, f/u with PCP and return to the ED if worsening of symptoms. Patient understands and agrees with the plan. [JJ] ED Course User Index [JJ] Davis Manzo MD History, physical exam findings, results of visit, differential diagnosis, medication regimens and plan of future care have been considered. Additional MDM may be found in the ED course. Differential diagnosis considered and final disposition made based on information gathered during evaluation and may not be completely ruled out. Vital signs were rechecked before final disposition and determined to be stable. Diagnoses ICD-10-CM ICD-9-CM 1. Generalized abdominal pain R10.84 789.07 Disposition and Condition ED Disposition ED Disposition Condition Comment Disch - Home Stable Davis Manzo MD, FACEP, FAAEM Jacquard Loom Card Changer of Emergency and Internal Medicine [facility], [facility] #[id number] documented in this encounter Miscellaneous Notes ED Nurse Note - Delbert Blankenship RN - 01/14/2020 6:46 AM CDTPt given printed and verbal discharge instructions regarding abdominal pain and findings, encouragedhydration, prescriptions provided and discussed with patient/family Discussed Tylenol and ibuprofen use for pain/fever. Pt encouraged to follow up with pcp Advised to seek medical attention for new/prolonged/worsening of symptoms. No adverse reaction to meds given in ER noted upon discharge. PIV d'cd, dressing to site, catheter in tact. Pt verbalized understanding of instructions, awake alert oriented, resp reg unlabored, skin w/d, color appropriate for race, moves all ext well, pt leaving amb with steady gait, in no apparent distress, driving D Nurse Note - Delbert Blankenship RN - 01/14/2020 4:58 AM CDTPatient performed one minute walk test at bedside with no dyspnea or change in SPO2, HR up to 84. documented in this encounter Plan of Treatment Date Type Specialty Care Team Description 02/07/2020 Office Visit Obstetrics & Gynecology Brit Dhaliwal PA-C [address] [place] [address] Drive [place] [phone] Name Type Priority Associated Diagnoses Date/Ti me CT ABDOMEN PELVIS W IMAGING STAT Generalized abdominal 01/14/2020 6:03 AM CONTRAST pain CDT Health Maintenance Due Date Last Done Comments HEPATITIS C (HCV) SCREEN 1960 PNEUMOCOCCAL 0-64 YEARS COMBINED SERIES (1 of 1 - 09/11/1967 PPSV23) Depression Screening 1973 DTaP,Tdap,and Td Vaccines (1 - Tdap) 1980 10/08/2008 Breast Cancer Screening (MAMMOGRAM) 2001 COLON CANCER SCREENING ANNUAL FIT/FOBT 09/11/2011 COLON CANCER SCREENING FIT DNA EVERY 3 YEARS 09/11/2011 COLON CANCER SCREENING SIGMOIDOSCOPY EVERY 5 YEARS 09/11/2011 COLONOSCOPY 09/11/2011 Colorectal Cancer Screening 09/11/2011 Zoster Recombinant Vaccine (SHINGRIX) (1 of 2) 09/11/2011 PAP SMEAR 10/09/2015 10/08/2012 LUNG CANCER SCREEN: Recommended for age 55-80 with 30 2016 + pack year history INFLUENZA VACCINE (#1) 2020 documented as of this encounter Procedures Procedure Name Priority Date/Time Associated Diagnosis Comme nts CT ABDOMEN PELVIS W STAT 01/14/2020 6:03 AM Generalized ab dominal CONTRAST CDT pain Procedure Note - [facility], Radia nt Results Inft User - 01/14/2020 6:17 AM CDT EXAM: CT ABDOMEN AND PELVIS WITH CONTRAST HISTORY: 59-year-old female with acute generalized abdominal pain fever COMPARISON: None. TECHNIQUE AND FINDINGS: Cont iguous axial imaging from the level of the lung bases through the pubic symp hysis was performed after the uncomplicated administration of 120 cc of intravenous Omnipaque contrast. Coronal and sagittal reconstructions wer e obtained. Auto mA and/or iterative reconstruction were used to reduce radiation dose. FINDINGS: LOWER THORAX: The lung bases are clear. No cardiomegaly. LIVER: Normal contour. Subce ntimeter hypodensities in the right hepatic lobe are too small to furthe r characterize. GALLBLADDER AND BILIARY TREE : Prior cholecystectomy. No biliary ductal dilation. The CBD measures 0 .4 cm SPLEEN: No splenomegaly. PANCREAS: No ductal dilation or masses. ADRENAL GLANDS: No adrenal n odules. KIDNEYS: No hydronephrosis o r stones. Two subcentimeter cortical hypodensities in the upper p ole of the right kidney has internal attenuation above simple flu id. This could be artifactual given the small size or may represent cysts with proteinaceous/hemorrhagic contents. PERITONEUM AND RETROPERITONE UM: No free air or fluid. LYMPH NODES: No lymphadenopa thy. GI TRACT: No dilation or wal l thickening. Sigmoid colon diverticulosis without pericolonic inflamma tory changes. The appendix is normal. PELVIS/BLADDER: Prior hyster ectomy. The there is diffuse bladder wall thickening likely due to und erdistention. A urachal remnant is noted at the dome of the bladder extendin g to the umbilicus. Right ovarian follicle measures 1.8 cm with interna l attenuation of simple fluid. VESSELS: Unremarkable. BONES AND SOFT TISSUES: No s uspicious lytic or sclerotic bony lesions. IMPRESSION Sigmoid colon diverticulosis without diverticulitis. Two subcentimeter right mark l cysts likely contain proteinaceous/hemorrhagic co ntents. However, these are incompletely characterized on this single phase CT. Preliminary Report Dictated by Resident: Elizabeth Pablo URINALYSIS STAT 01/14/2020 5:04 AM Generalized Results for this CDT abdominal pain procedure are in the results section. CBC WITH DIFF STAT 01/14/2020 5:04 AM Generalized Results for this CDT abdominal pain procedure are in the results section. COMP. METABOLIC STAT 01/14/2020 5:04 AM Generalized Resul ts for this PANEL ([id number]) CDT abdominal pain procedure ar e in the results section. LIPASE STAT 01/14/2020 5:04 AM Generalized Results for this CDT abdominal pain procedure are in the results section. NOTICE OF PRIVACY Routine 01/14/2020 4:39 AM PRACTICES CDT CONSENT/REFUSAL FOR Routine 01/14/2020 4:38 AM DIAGNOSIS AND CDT TREATMENT documented in this encounter Results Urinalysis (01/14/2020 5:04 AM CDT) Pathologist Sig nature APPEARANCE Clear Clear [facility] COLOR Yellow Yellow [facility] PH 6.0 4.8 - 8.0 [facility] SP GRAVITY 1.019 1.003 - 1.030 [facility] GLU U QUAL Normal Normal [facility] BLOOD Negative Negative [facility] KETONES 5 mg/dL (A) Negative [facility] PROTEIN Negative Negative [facility] UROBILIN Normal Normal [facility] BILIRUBIN Negative Negative [facility] NITRITE Negative Negative [facility] LEUK JOSE Negative Negative [facility] RBC/HPF 2 0 - 3 HPF [facility] WBC/HPF 0 0 - 5 HPF [facility] BACTERIA Negative Negative [facility] MUCOUS Slight (A) Negative LPF [facility] SQ EPITH 1 HPF [facility] Specimen Urine - URINE, CLEAN CATCH Performing Organization Address [facility]/Zipcode Phone Number [facility] CLIA: [id number] [place] [address] Lipase, Serum (01/14/2020 5:04 AM CDT) Pathologist Sig nature LIPASE 242 (H) 0 - 220 U/L [facility] Specimen Blood - VENOUS Performing Organization Address City/[facility] Phone Number [facility] CLIA: [id number] [place] [address] CBC with Differential (01/14/2020 5:04 AM CDT) [facility] WBC 4.12 (L) 4.30 - 11.10 [facility] 10*3/L [facility] RBC 4.65 3.93 - 5.25 [facility] 10*6/L [facility] HGB 13.5 11.6 - 15.0 [facility] g/dL [facility] HCT 40.8 35.7 - 45.2 % [facility] MCV 87.7 80.6 - 95.5 fL [facility] MCH 29.0 25.9 - 32.8 pg [facility] MCHC 33.1 31.6 - 35.1 [facility] g/dL [facility] RDW-SD 40.4 39.0 - 49.9 fL [facility] RDW-CV 12.4 12.0 - 15.5 % [facility] PLT 149 (L) 166 - 358 [facility] 10*3/L [facility] MPV 10.9 9.5 - 12.9 fL [facility] NRBC/100 WBC 0.0 0.0 - 10.0 /100 [facility] WBCs [facility] NRBC x10^3 <0.01 10*3/L [facility] GRAN MAT (NEUT) % 56.1 % [facility] IMM GRAN % 0.50 % [facility] LYMPH % 29.4 % [facility] MONO % 13.1 % [facility] EOS % 0.7 % [facility] BASO % 0.2 % [facility] GRAN MAT x10^3(ANC) 2.31 1.88 - 7.09 [facility] 10*3/uL [facility] IMM GRAN x10^3 <0.03 0.00 - 0.06 [facility] 10*3/uL [facility] LYMPH x10^3 1.21 (L) 1.32 - 3.29 [facility] 10*3/uL [facility] MONO x10^3 0.54 0.33 - 0.92 [facility] 10*3/uL [facility] EOS x10^3 0.03 0.03 - 0.39 [facility] 10*3/uL [facility] BASO x10^3 <0.03 0.01 - 0.07 [facility] 10*3/uL [facility] Specimen Blood - VENOUS Performing Organization Address City/State/Zipcode Phone Number [facility] CLIA: [id number] [place] [address] Complete Metabolic Panel (01/14/2020 5:04 AM CDT) [facility] NA 136 135 - 145 mmol/L [facility] K 4.1 3.5 - 5.0 mmol/L [facility] CL 104 98 - 108 mmol/L [facility] CO2 TOTAL 26 23 - 31 mmol/L [facility] AGAP 6 2 - 16 [facility] BUN 11 7 - 23 mg/dL [facility] GLUCOSE 100 70 - 110 mg/dL [facility] CREATININE 0.70 0.50 - 1.04 [facility] mg/dL [facility] TOTAL BILI 0.6 0.1 - 1.1 mg/dL [facility] CALCIUM 8.6 8.6 - 10.6 mg/dL [facility] T PROTEIN 7.3 6.3 - 8.2 g/dL [facility] ALBUMIN 4.2 3.5 - 5.0 g/dL [facility] ALK PHOS 77 34 - 122 U/L [facility] ALTv 34 5 - 35 U/L [facility] AST(SGOT) 37 13 - 40 U/L [facility] eGFR Calculation 85.9 mL/min/1.73m2 [facility] (Non-) [facility] Y eGFR Calculation 104.2 mL/min/1.73m2 [facility] () [facility] Specimen Blood - VENOUS Narrative Performed At Association of Glomerular Filtration Rate (GFR) [facility] and Staging of Kidney Disease* + + +- + | GFR (mL/min/1.73 m2) | With Kidney Damage | Without Kidney Damage + + +- + | >90 | Stage one | Normal + + +- + | 60-89 | Stage two | Decreased GFR + + +- + | 30-59 | Stage three | Stage three + + +- + | 15-29 | Stage four | Stage four + + +- + | <15 (or dialysis) | Stage five | Stage five + + +- + *Each stage assumes the associated GFR level has been in effect for at least three months. Stages 1 to 5, with or without kidney disease, indicate chronic kidney disease. Notes: Determination of stages one and two (with eGFR >59mL/min/1.73 m2) requires estimation of kidney damage for at least three months as defined by structural or functional abnormalities of the kidney, manifested by either: Pathological abnormalities or Markers of kidney damage (including abnormalities in the composition of the blood or urine or abnormalities in imaging tests). Performing Organization Address City/State/Zipcode Phone Number [facility] CLIA: [id number] [place] [address] [facility] [address] documented in this encounter Visit Diagnoses Diagnosis Generalized abdominal pain - Primary Abdominal pain, generalized documented in this encounter Administered Medications Medication Order MAR Action Action Date Dose Rate Site acetaminophen (TYLENOL) tablet Given 01/14/2020 6:07 AM CDT 650 mg 650 mg 650 mg, Oral, ONCE, 1 dose, Fri01/14/20 at 0715, TRISH FENTanyl PF (SUBLIMAZE (PF)) injection 50 Given 01/14/2020 6:30 AM CDT 50 mcg mcg 50 mcg, Slow IV Push, ONCE, 1 dose, Fri01/14/20 at 0730, STAT iohexol (OMNIPAQUE 350 BULK-150 mL) Given 01/14/2020 5:57 AM CD T 120 mL injection 120 mL 120 mL, Intravenous, ONCE, 1 dose, Fri01/14/20 at 0615, Routine documented in this encounter Insurance Payer Benefit Plan Subscriber ID Effective Dates Phone Address Type / Group [employer] [id number] 2017-Jany [phone] [address] [place] - OUT OF t 7 [id number] [place] [address] documented as of this encounter
--- OUTSIDE RECORDS SUMMARY | 2020-01-20 21:57 | XMS REPORT | Summary of Care ---
:1960 Author Organization [facility] - [facility] Address [address] [place] [id number] Care Team Providers Name Role Phone Nelson Becerra Primary Care Provider Reason for Referral (Routine) Status Reason Specialty Diagnoses / Referred By Referred To Procedures Contact Contact Closed Patient is Family Medicine Diagnoses Pneumonia due to COVID-19 virus Yuriy Cook Thomas, Antony Established with Procedures Discharge Follow-up: PCP NELSON BECERRA; 2 Weeks MD Cavazos a [address] Provider [facility] [address] [place], Phone: [place] [phone] Phone: Radiology Services (STAT) Status Reason Specialty Diagnoses / Referred By Referred To Procedures Contact Contact New Request Diagnostic Diagnoses COVID-19 virus infection Marlen Pond Radiology Procedures XR CHEST 1 VW COVID Chest 1 View G, 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 [address] [facility] [id number] [place] [address] Reason for Visit Reason Comments Shortness of Breath Auth/Cert Status Reason Specialty Diagnoses / Referred By Referred To Procedures Contact Contact Emergency Medicine Ad[facility] Em ergency Dept [address] [place] [address] Fax: Encounter Details Date Type Department Care Team Description 01/16/2020 - Emergency ADC Intensive Care Kamari Pond NP [address] [facility] [id number] [place], [place] [id number] Lower respiratory 01/17/2020 Unit Vincenzo Vivar MD [address] [place] [id number] tract infection due to [address] [place] [address] COVID-19 virus [place], [place] [address] Allergies Active Allergy Reactions Severity Noted Date Comments Adhesive Tape-Silicones Other - See comments 0 Diphenhydramine Hcl Other - See comments 01/14/2020 "makes me climb the redman" Codeine Itching 01/14/2020 documented as of this encounter (statuses as of 01/17/2020) Medications Medication Sig Dispensed Refills Start End Date Status Date acetaminophen (TYLENOL Take 500 mg by 0 Active EXTRA STRENGTH) 500 mg mouth every 6 tablet (six) hours as needed. ibuprofen (ADVIL) 200 Take 200 mg by 0 Active mg tablet mouth every 6 (six) hours as needed. acetaminophen-codeine May take 1-2 40 Tab 0 Active (TYLENOL #3) 300-30 mg tabs every 6 5 tablet hours for pain fluticasone (FLONASE) Use 2 Sprays 16 g 0 Active 50 mcg/actuation nasal in each 7 sprayIndications: nostril daily. Acute non-recurrent maxillary sinusitis estradiol 0.025 mg/24 Apply 1 Patch 4 Patch 5 Active hr patchIndications: to skin 0 Postmenopausal weekly. symptoms dicyclomine (BENTYL) Take 1 capsule 20 capsule 0 07/08 Active 10 mg by mouth 4 0 20 capsuleIndications: (four) times Generalized abdominal daily for 5 pain days. clopidogreL (PLAVIX) Take 75 mg by 0 Active 75 mg tablet mouth daily. famotidine (PEPCID) 40 Take 40 mg by 0 Active mg tablet mouth daily. albuterol 90 Inhale 2 Puffs 8.5 g 2 Ac tive mcg/actuation every 4 (four) 0 inhalerIndications: hours as Pneumonia due to needed for COVID-19 virus Wheezing or Shortness of Breath. ascorbic acid, vitamin Take 1 tablet 30 tablet 0 Active C, 500 mg by mouth 0 tabletIndications: daily. Pneumonia due to COVID-19 virus cholecalciferol, Take 1 tablet 30 tablet 0 Active vitamin D3, 25 mcg by mouth 0 (1,000 unit) daily. tabletIndications: Pneumonia due to COVID-19 virus zinc sulfate 220 (50) Take 1 capsule 30 capsule 0 Active mg capsuleIndications: by mouth 0 Pneumonia due to daily. COVID-19 virus dexAMETHasone 4 mg Take 1 tablet 10 tablet 0 Active tabletIndications: by mouth 0 Pneumonia due to daily. COVID-19 virus azithromycin 500 mg Take 1 tablet 5 tablet 0 Discontinued tabletIndications: by mouth 7 20 Acute non-recurrent daily. maxillary sinusitis azithromycin 250 mg Take 250 mg by 0 01/16 Discontinued tablet mouth daily. 20 Take 500 mg day 1, then 250 mg days 2 to 5. cefdinir 300 mg Take 300 mg by 0 01/17/20 Discontinued capsule mouth every 24 20 (twenty-four) hours. methylPREDNISolone 4 Take 4 mg by 0 Discontinued mg tablets mouth 20 SEE-INSTRUCTIO NS. follow package directions documented as of this encounter (statuses as of 01/17/2020) Active Problems Problem Noted Date Lower respiratory tract infection due to COVID-19 viru s 01/16/2020 Obesity (BMI 30-39.9) 11/04/2018 Cellulitis 10/23/2016 Encounter for routine gynecological examination 2012 Overview: 10/19/2012- negative colorectal cards. Mammogram Impression: BI-RAD: 2, benign. No mammographic evidence for malignancy. Annual mammography is the recommendation for the patient. ICD10 Diagnosis Term Paper Feeder Utility H/O: hysterectomy 10/08/2012 Overview: Completed for heavy bleeding. Partial hy st. Elevated blood pressure reading without diagnosis of h ypertension 10/08/2012 Overview: Referral given to local ER Asthma 10/08/2012 Overview: ICD10 Diagnosis Term Paper Feeder Utility BV (bacterial vaginosis) 10/08/2012 Dysplasia of cervix 10/08/2012 Overview: Hx of cone biopsy and cryotherapy. ICD10 Diagnosis Term Paper Feeder Utility documented as of this encounter (statuses as of 01/17/2020) Immunizations Name Administration Dates Next Due Influenza Virus Vaccine Quad .5 mL IM 6+ MO 03/26/2019 Td 10/08/2008 Zoster Vaccine Recombinant 11/10/2018, 08/07/2018 documented as of this encounter Social History Tobacco Use Types Packs/Day Years Used Date Former Smoker Cigarettes 32 Quit: 08/09/19 11 Smokeless Tobacco: Never Used Alcohol Use Drinks/Week oz/Week Comments No Sex Assigned at Date Recorded Not on file COVID-19 Exposure Response Date Recorded In the last month, have you been in contact with Yes 01/16/2020 2:06 PM CDT someone who was confirmed or suspected to have Coronavirus / COVID-19? documented as of this encounter Last Filed Vital Signs Vital Sign Reading Time Taken Comments Blood Pressure 124/77 01/17/2020 11:39 AM CDT Pulse 75 01/17/2020 11:39 AM CDT Temperature 35.5 C (95.9 F) 01/17/2020 11:39 AM CDT Respiratory Rate 16 01/17/2020 1:32 PM CDT Oxygen Saturation 96% 01/17/2020 1:32 PM CDT Inhaled Oxygen Concentration - - Weight 72.6 kg (160 lb) 01/16/2020 10:55 AM CDT Height - - Body Mass Index 28.34 02/04/2019 8:26 AM CDT documented in this encounter Discharge Instructions AttachmentsThe following attachments cannot be sent through Care Everywhere. Caring for Someone Who Has COVID-19 (Indonesian)Coronavirus Disease 2019 (COVID-19) (Indonesian)Coronavirus Disease 2019 (COVID-19): Prevention (Indonesian)Coronavirus Disease 2019: Caring for Yourself and Others (Indonesian)Disinfecting Your Home of COVID-19 (Indonesian)How COVID-19 Spreads (Indonesian)Infection, Preventing the Spread of: Understanding Isolation Procedures (Indonesian)Simple Ways to Avoid COVID-19 (Indonesian)Symptoms of COVID-19 Infection (Indonesian)documented in this encounter Progress Notes Morgan Pisano RN - 01/17/2020 11:52 AM CDTUnable to get in contact w/ patient to complete SFA, will try again at later time. Morgan Pisano RN, BSN [facility] Manager Human Capital O [phone] F [phone] Morgan Kelley RN - 01/17/2020 9:12 AM CDTUnable to get in contact w/ patient to complete SFA, will try again at later time. Morgan Pisano RN, BSN [facility] ADC Manager Human Capital O [phone] F [phone] Ladi Mckenzie RT - 01/17/2020 8:25 AM CDTO2 Saturation at REST on Room Air = 97% EXERTION TEST O2 Saturation at Rest on Room Air = 97% O2 Saturation being Exerted on Room Air = 95% documented in this encounter H&P Notes Gabrielle Ocasio AGACNP - 01/16/2020 5:02 PM CDT Date of Service: 01/16/2020 CHIEF COMPLAINT: chest tightness, sob, cough HISTORY OF PRESENT ILLNESS Marisa Baker is a 59 year old female who presents with.past medical history significant for anemia, asthma, pelvic inflammatory disease, STDs who presented to the emergency room with worsening complaints of shortness of breath. Patient tested positive for COVID on 01/08 and other family members are also positive. She reported that last night she had shortness and checked her O2 sat and it in the was 80s.. Stated that after took breathing treatment her oxygen saturation came up to 90%. Stated she called her PCP and she placed her on Medrol dose pac and asked her to come to ER..ON presentation to the emergency room,O2 sats her 02 was 96% and after a walking test, it dropped to 90%. Other associating symptoms was fever and no productive cough PAST MEDICAL HISTORY Past Medical History: Diagnosis Date Abnormal Pap smear Abnormal uterine bleeding Anemia Anesthesia complication Vomiting Asthma chemical induced asthma Menstrual disorder PID (pelvic inflammatory disease) STD (sexually transmitted disease) Trich at age 27 PAST SURGICAL HISTORY Past Surgical History: Procedure Laterality Date BLEPHAROPLASTY bilateral breast implants BREAST RECONSTRUC W OTHR TECHNIQ x 2 BUNIONECTOMY SECTION x3 CHOLECYSTECTOMY COLONOSCOPY DILATION AND CURETTAGE (SHX) HEMORRHOIDECTOMY HYSTERECTOMY TONSILLECTOMY TUBAL LIGATION ALLERGIES Allergies Allergen Reactions Adhesive Tape-Silicones Other - See comments Benadryl [Diphenhydramine Hcl] Other - See comments "makes me climb the redman" Codeine Itching MEDICATIONS Current home medication list reviewed: Current Discharge Medication List STOP taking these medications azithromycin 250 mg tablet Comments: Reason for Stopping: cefdinir 300 mg capsule Comments: Reason for Stopping: clopidogreL (PLAVIX) 75 mg tablet Comments: Reason for Stopping: famotidine (PEPCID) 40 mg tablet Comments: Reason for Stopping: methylPREDNISolone 4 mg tablets Comments: Reason for Stopping: dicyclomine (BENTYL) 10 mg capsule Comments: Reason for Stopping: estradiol 0.025 mg/24 hr patch Comments: Reason for Stopping: azithromycin 500 mg tablet Comments: Reason for Stopping: fluticasone (FLONASE) 50 mcg/actuation nasal spray Comments: Reason for Stopping: acetaminophen-codeine (TYLENOL #3) 300-30 mg tablet Comments: Reason for Stopping: acetaminophen (TYLENOL EXTRA STRENGTH) 500 mg tablet Comments: Reason for Stopping: ibuprofen (ADVIL) 200 mg tablet Comments: Reason for Stopping: FAMILY HISTORY Family History Problem Relation Age of Onset Cancer Mother Hypertension Mother Other - see comments Sister Alcoholism Hypertension Sister Other - see comments Brother Alcoholism Breast Cancer Paternal Aunt Heart Maternal Grandmother SOCIAL HISTORY Social History Socioeconomic History Marital status: Spouse name: Not on file Number of children: Not on file Years of education: Not on file Highest education level: Not on file Occupational History Not on file Social Needs Financial resource strain: Not on file Food insecurity Worry: Not on file Inability: Not on file Transportation needs Medical: Not on file Non-medical: Not on file Tobacco Use Smoking status: Former Smoker Years: 32.00 Types: Cigarettes Quit date: 08/08/2010 Years since quittin.4 Smokeless tobacco: Never Used Substance and Sexual Activity Alcohol use: No Drug use: No Sexual activity: Yes Partners: Male Lifestyle Physical activity Days per week: Not on file Minutes per session: Not on file Stress: Not on file Relationships Social connections Talks on phone: Not on file Gets together: Not on file Attends hinduism service: Not on file Active member of club or organization: Not on file Attends meetings of clubs or organizations: Not on file Relationship status: Not on file Intimate partner violence Fear of current or ex partner: Not on file Emotionally abused: Not on file Physically abused: Not on file Forced sexual activity: Not on file Other Topics Concern Not on file Social History Narrative Denies domestic violence or abuse REVIEW OF SYSTEMS 10 systems negative except per HPI PHYSICAL EXAMINATION BP 117/80 | Pulse 82 | Temp 36.8 C (98.3 F) (Oral) | Resp 20 | Wt 72.6 kg (160 lb) | LMP 10/08/1988 | SpO2 93% | BMI 28.34 kg/m PHYSICAL EXAM: General:No acute distress HEENT: Normocephalic LUNG; Clear to auscultation without wheezes or crackles Cardiovascular:RRR, S1 and S2 audible.pulses palpable ABD: None distended. Soft, NTND, Positive BS x4 quadrants Genitourinary: no distention EXTM: without Clubbing or edema SKIN: without rashes or lesions Neuro: Alert and oriented, w/o focal deficits Psych: Normal affect LABS - reviewed pertinent labs as below: CBC BMP PT/INR WBC (10*3/L) Date Value 01/16/2020 3.51 (L) NA (mmol/L) Date Value 01/16/2020 134 (L) No results found for: PT RBC (10*6/L) Date Value 01/16/2020 4.49 K (mmol/L) Date Value 01/16/2020 3.9 INR (no units) Date Value 01/16/2020 1.0 PLT (10*3/L) Date Value 01/16/2020 131 (L) CALCIUM (mg/dL) Date Value 01/16/2020 8.4 (L) HGB (g/dL) Date Value 01/16/2020 13.4 CL (mmol/L) Date Value 01/16/2020 102 aPTT HCT (%) Date Value 01/16/2020 38.7 BUN (mg/dL) Date Value 01/16/2020 11 APTT Patient (Seconds) Date Value 01/16/2020 34 CREATININE (mg/dL) Date Value 01/16/2020 0.62 IMAGING - reviewed, pertinent results as below: Hospital Encounter on 01/16/20 XR CHEST 1 VW COVID Narrative EXAM: XR CHEST 1 VW COVID HISTORY: 59 years-old; Female; sob covid + COMPARISON: 10/26/2016 radiograph FINDINGS: Lungs/Pleura: Hazy airspace and interstitial opacities in the right lower lung zone and the left upper zone lung zone are noted. There is no pleural effusion or pneumothorax. Heart/Mediastinum: The cardiomediastinal silhouette is normal. No acute osseous structure abnormality. Impression Hazy bilateral airspace and interstitial opacities are consistent with known Covid-19 infection. Disclaimer: Generally, the findings on chest imaging in COVID-19 are not specific, and overlap with other infections, including influenza, H1N1, SARS and MERS. According to the Centers for Disease Control (CDC) and recent statement of the [employer], viral testing remains the only specific method of diagnosis. Confirmation with the viral test is required, even if radiologic findings are suggestive of COVID-[address] Preliminary Report Dictated by Resident: Sai Limon I, Leonila Partida MD., have reviewed this study and agree with the above report. ASSESSMENT/PLAN Marisa Baker is a 59 year old female who was admitted for Covid 19 pneumonia with Hypoxia Admit on tele with isolation Procal plus ESR pending. Hold of on antibiotic for now Ferritin. Troponin, BNP, DIDimer, coag and LFTS WDLs Oxygen supplementation as needed Continue home medication Plavix. Said She takes Plavix due to COVID Start Supplement, ascorbic acid, zinc and Vit D Supportive therapy:bronchodilator inhaler and tessalon for cough Encourage proning incentive spirometry - History of asthma and COPD Continue albuterol inhaler Surrogate decision maker: patient Prophylaxis: DVT- Plavix. On plavix at home for COVID Stress Ulcer: nontender indicated Code status: Full code Tobacco user Former smoker Dispo Monitor overnight Associated attestation - Олег Becerra MD - 01/17/2020 1:04 AM CDTI have independently seen and evaluated this patient. I agree with the findings and documentation provided in the Nurse Practitioner's Notes. Medicine team will continue to provide daily care. 59 y/o fpresents with covid + with pneumonia and mild hypoxia with ambulating (?at home states o2 was in 80's while sleeping), recently finished course of z-marquez will hold further antiboitics. Was also rx medrol marquez (took 1 day of it)will hold further steroids unless further respiratory decline. Was also givenplavix (states was for clot prevention from covid by PCP) will d/c and do subq Lovenox. Continue with supprotive measures, inflammatory markers.Consult ID to eval need for remdesivir. The diagnosis and plan was discussed with the patient and was agreed upon Олег Becerra M.D. Internal Medicine Employee ID #: [id number] in this encounter Consult Notes Kwabena Silveira FNP - 01/17/2020 1:43 PM CDTAssociated Order(s): CONSULT INFECTIOUS DISEASE Subjective: Patient is a 59-year-old female who presents with worsening shortness of breath and fever. Patient was recently positive for Covid 19 on 01/09/2020 and finished a Z-pack. Patient tested positive for Covid 19 again on which I have been consulted for. Patient examined at bedside. Past Medical History: Diagnosis Date Abnormal Pap smear Abnormal uterine bleeding Anemia Anesthesia complication Vomiting Asthma chemical induced asthma Menstrual disorder PID (pelvic inflammatory disease) STD (sexually transmitted disease) Trich at age 27 Past Surgical History: Procedure Laterality Date BLEPHAROPLASTY bilateral breast implants BREAST RECONSTRUC W OTHR TECHNIQ x 2 BUNIONECTOMY SECTION x3 CHOLECYSTECTOMY COLONOSCOPY DILATION AND CURETTAGE (SHX) HEMORRHOIDECTOMY HYSTERECTOMY TONSILLECTOMY TUBAL LIGATION Social History Socioeconomic History Marital status: Spouse name: Not on file Number of children: Not on file Years of education: Not on file Highest education level: Not on file Occupational History Not on file Social Needs Financial resource strain: Not on file Food insecurity Worry: Not on file Inability: Not on file Transportation needs Medical: Not on file Non-medical: Not on file Tobacco Use Smoking status: Former Smoker Years: 32.00 Types: Cigarettes Quit date: 08/08/2010 Years since quittin.4 Smokeless tobacco: Never Used Substance and Sexual Activity Alcohol use: No Drug use: No Sexual activity: Yes Partners: Male Lifestyle Physical activity Days per week: Not on file Minutes per session: Not on file Stress: Not on file Relationships Social connections Talks on phone: Not on file Gets together: Not on file Attends hinduism service: Not on file Active member of club or organization: Not on file Attends meetings of clubs or organizations: Not on file Relationship status: Not on file Intimate partner violence Fear of current or ex partner: Not on file Emotionally abused: Not on file Physically abused: Not on file Forced sexual activity: Not on file Other Topics Concern Not on file Social History Narrative Denies domestic violence or abuse Family History Problem Relation Age of Onset Cancer Mother Hypertension Mother Other - see comments Sister Alcoholism Hypertension Sister Other - see comments Brother Alcoholism Breast Cancer Paternal Aunt Heart Maternal Grandmother Allergies Allergen Reactions Adhesive Tape-Silicones Other - See comments Benadryl [Diphenhydramine Hcl] Other - See comments "makes me climb the redman" Codeine Itching Current Facility-Administered Medications: acetaminophen (TYLENOL) tablet 650 mg, 650 mg, Oral, Q6HPRN, Nwokedi, Gabrielle, AGACNP, 650 mg at01/16/20 1640 albuterol (VENTOLIN) inhaler 2 Puff, 2 Puff, Inhalation, Q4HPRN, Nwokedi, Gabrielle, AGACNP, 2 Puff at 01/17/20 1330 ascorbic acid (vitamin C) (VITAMIN C) tablet 500 mg, 500 mg, Oral, BID, Nwokedi, Gabrielle, AGACNP, 500 mg at 01/17/20 0832 benzonatate (TESSALON PERLES) capsule 100 mg, 100 mg, Oral, TID, Nwokedi, Gabrielle, AGACNP, 100 mg at 01/17/20 1306 cholecalciferol (vitamin D3) tablet 1,000 Units, 1,000 Units, Oral, DAILY, Nwokedi, Gabrielle, AGACNP, 1,000 Units at 01/17/20 0833 enoxaparin (LOVENOX) injection 40 mg, 40 mg, Subcutaneous, Q24H, Олег Becerra MD, 40 mg at 01/17/20 0823 famotidine (PEPCID AC) tablet 40 mg, 40 mg, Oral, DAILY, Nwokedi, Gabrielle, AGACNP, 40 mg at 01/17/20 0833 ondansetron (ZOFRAN (PF)) injection 4 mg, 4 mg, Slow IV Push, Q6HPRN, Nwokedi, Gabrielle, AGACNP zinc sulfate (ORAZINC) capsule 220 mg, 220 mg, Oral, TID, Nwokedi, Gabrielle, AGACNP, 220 mg at 01/17/20 1306 zolpidem (AMBIEN) tablet 5 mg, 5 mg, Oral, QHSPRN, Nwokedi, Gabrielle, AGACNP, 5 mg at 01/16/20 2106 ROS: CV: Denies chest pain RESP: Reports shortness of breath improving, still with cough : Denies dysuria GI: Reports some nausea and one episode of diarrhea Objective: Vitals: 01/17/20 0800 01/17/20 0813 01/17/20 1139 01/17/20 1332 BP: 115/78 124/77 Pulse: 81 75 Resp: 23 16 18 16 Temp: 35.5 C (95.9 F) TempSrc: Temporal Artery SpO2: 92% 92% 98% 96% Weight: CBC WBC (10*3/L) Date Value 01/16/2020 3.51 (L) RBC (10*6/L) Date Value 01/16/2020 4.49 PLT (10*3/L) Date Value 01/16/2020 131 (L) HGB (g/dL) Date Value 01/16/2020 13.4 HCT (%) Date Value 01/16/2020 38.7 CMP NA (mmol/L) Date Value 01/16/2020 134 (L) K (mmol/L) Date Value 01/16/2020 3.9 CALCIUM (mg/dL) Date Value 01/16/2020 8.4 (L) CL (mmol/L) Date Value 01/16/2020 102 BUN (mg/dL) Date Value 01/16/2020 11 CREATININE (mg/dL) Date Value 01/16/2020 0.62 GLUCOSE (mg/dL) Date Value 01/16/2020 100 CO2 TOTAL (mmol/L) Date Value 01/16/2020 25 ALBUMIN (g/dL) Date Value 01/16/2020 4.3 T PROTEIN (g/dL) Date Value 01/16/2020 7.2 TOTAL BILI (mg/dL) Date Value 01/16/2020 0.5 BILI UNCON (mg/dL) Date Value 01/16/2020 0.6 BILI CONJ (mg/dL) Date Value 01/16/2020 0.0 ALT(SGPT) (U/L) Date Value 10/26/2016 258 (H) ALTv (U/L) Date Value 01/16/2020 26 AST(SGOT) (U/L) Date Value 01/16/2020 36 ALK PHOS (U/L) Date Value 01/16/[address] abd 01/13: EXAM: CT ABDOMEN AND PELVIS WITH CONTRAST [...] No suspicious lytic or sclerotic bony lesions. IMPRESSION 1. Sigmoid colon diverticulosis without diverticulitis. Mural prominence of the urinary bladder is concerning for cystitis. 2. Two subcentimeter right renal cysts likely contain proteinaceous/hemorrhagic contents. However, these are incompletely characterized on this single phase CT. Chest xray 01/15: EXAM: XR CHEST 1 VW COVID HISTORY: 59 years-old; Female; sob covid + COMPARISON: 10/26/2016 radiograph FINDINGS: Lungs/Pleura: Hazy airspace and interstitial opacities in the right lower lung zone and the left upper zone lung zone are noted. There is no pleural effusion or pneumothorax. Heart/Mediastinum: The cardiomediastinal silhouette is normal. No acute osseous structure abnormality. IMPRESSION Hazy bilateral airspace and interstitial opacities are consistent with known Covid-19 infection. Disclaimer: Generally, the findings on chest imaging in COVID-19 are not specific, and overlap with other infections, including influenza, H1N1, SARS and MERS. According to the Centers for Disease Control (CDC) and recent statement of the [employer], viral testing remains the only specific method of diagnosis. Confirmation with the viral test is required, even if radiologic findings are suggestive of COVID-[address] ROS: General: Awake, alert, oriented RESP: Room air, no acute distress Assessment and plan: Pneumonia secondary to Covid 19 infection D-Dimer normal range Procalcitonin 0.03 Not a candidate for Remdesivir at this time due to no supplemental oxygen needs Urine cultures negative Blood cultures pending Can continue to monitor off antibiotics Will continue to monitor Thank you for consult Patient discussed with Dr. Nielsen documented in this encounter ED Notes Beth Gomes RN - 01/16/2020 10:53 AM CDTPatient c/o chest tightness and shortness of breath that started last night. Patient reports that heO2 sats at home were as low as 80%. Walking test here O2 sats dropped from 96% to 90% when walking, HR increased to 95. Temp at triage is 100.9. Patient reports that she took an Albuterol neb treatment at home with mild relief. arlen Pond NP - 01/16/2020 10:44 AM CDT [facility] EMERGENCY DEPARTMENT ENCOUNTER Patient Name: Marisa Baker Date of : 1960 59 year old Treatment Room: [place] [id number] Primary Care Physician: PATIENT DOES NOT HAVE A PCP Patient Escorted by: Self [9] Mode of Arrival: Personal means [1] EMS Treatment Prior to ED Arrival: Chief complaint Chief Complaint Patient presents with Shortness of Breath History of present illness Marisa Baker is a 59 year old female who presents to ED with complaint of increased SOB, she reports Covid +on 01/09/20, symptoms began on 01/07/20. Several family members also positive. Reports last night she began experiencing difficulty breathing, checked her pulse oximetry and it was 80%. She used her grandson's nebulizer and it improved her pulse ox where it hovered between 85- 90% but she stillfelt SOB, She also reports feeling out of it during this time. She called her physician today who started her on medrol dose pack. History provided by: Patient Shortness of Breath Severity: Moderate Onset quality: Gradual Timing: Constant Progression: Worsening Chronicity: New Context: activity Relieved by: Nothing Worsened by: Activity, coughing, exertion, movement and deep breathing Ineffective treatments: None tried Past Medical History Past Medical History: Diagnosis Date Abnormal Pap smear Abnormal uterine bleeding Anemia Anesthesia complication Vomiting Asthma chemical induced asthma Menstrual disorder PID (pelvic inflammatory disease) STD (sexually transmitted disease) Trich at age 27 Past Surgical History Past Surgical History: Procedure Laterality Date BLEPHAROPLASTY bilateral breast implants BREAST RECONSTRUC W OTHR TECHNIQ x 2 BUNIONECTOMY SECTION x3 CHOLECYSTECTOMY COLONOSCOPY DILATION AND CURETTAGE (SHX) HEMORRHOIDECTOMY HYSTERECTOMY TONSILLECTOMY TUBAL LIGATION Medications Current Outpatient Medications Medication Instructions acetaminophen (TYLENOL EXTRA STRENGTH) 500 mg, Q6HPRN acetaminophen-codeine (TYLENOL #3) 300-30 mg tablet May take 1-2 tabs every 6 hours for pain azithromycin (ZITHROMAX) 500 mg, Oral, DAILY azithromycin (ZITHROMAX) 250 mg, Oral, DAILY, Take 500 mg day 1, then 250 mg days 2 to 5. cefdinir (OMNICEF) 300 mg, Oral, Q24H clopidogreL (PLAVIX) 75 mg, Oral, DAILY dicyclomine (BENTYL) 10 mg, Oral, QID estradiol 0.025 mg/24 hr patch 1 Patch, Transdermal (Apply To Skin), QWEEKLY famotidine (PEPCID) 40 mg, Oral, DAILY fluticasone (FLONASE) 50 mcg/actuation nasal spray 2 Sprays, Nasal, DAILY ibuprofen (ADVIL) 200 mg, Q6HPRN methylPREDNISolone (MEDROL DOSE-MARQUEZ) 4 mg, Oral, SEE-INSTRUCTIONS, follow package directions Allergies Allergies Allergen Reactions Adhesive Tape-Silicones Other - See comments Benadryl [Diphenhydramine Hcl] Other - See comments "makes me climb the redman" Codeine Itching Review of Systems Review of Systems Respiratory: Positive for shortness of breath. All other systems reviewed and are negative. Physical Exam BP 120/70 | Pulse 90 | Temp 36.8 C (98.3 F) (Oral) | Resp 26 | Wt 72.6 kg (160 lb) | LMP 10/08/1988 | SpO2 93% | BMI 28.34 kg/m Physical Exam Vitals signs and nursing note reviewed. Constitutional: Appearance: She is well-developed. HENT: Head: Normocephalic. Nose: Nose normal. Neck: Musculoskeletal: Normal range of motion and neck supple. Cardiovascular: Rate and Rhythm: Normal rate and regular rhythm. Pulmonary: Effort: Pulmonary effort is normal. No respiratory distress. Breath sounds: Normal breath sounds. Abdominal: General: Bowel sounds are normal. Palpations: Abdomen is soft. Tenderness: There is no abdominal tenderness. Musculoskeletal: Normal range of motion. Skin: General: Skin is warm and dry. Capillary Refill: Capillary refill takes less than 2 seconds. Neurological: Mental Status: She is alert and oriented to person, place, and time. Psychiatric: Behavior: Behavior normal. Thought Content: Thought content normal. Judgment: Judgment normal. Labs and Studies Reviewed: no significant abnormality , COVID positive Recent Results (from the past 24 hour(s)) Lactic Acid Whole Blood Collection Time: 01/16/20 11:18 AM Result Value Ref Range LACTIC ACID 1.02 0.30 - 2.60 mmol/L Urinalysis Collection Time: 01/16/20 11:19 AM Result Value Ref Range APPEARANCE Clear Clear COLOR Yellow Yellow PH 5.0 4.8 - 8.0 SP GRAVITY 1.025 1.003 - 1.030 GLU U QUAL Normal Normal BLOOD Negative Negative KETONES 80 mg/dL (A) Negative PROTEIN Negative Negative UROBILIN Normal Normal BILIRUBIN Negative Negative NITRITE Negative Negative LEUK JOSE Negative Negative RBC/HPF 2 0 - 3 HPF WBC/HPF 2 0 - 5 HPF BACTERIA Few (A) Negative MUCOUS Slight (A) Negative LPF SQ EPITH 1 HPF CBC with Differential Collection Time: 01/16/20 11:19 AM Result Value Ref Range WBC 3.51 (L) 4.30 - 11.10 10*3/L RBC 4.49 3.93 - 5.25 10*6/L HGB 13.4 11.6 - 15.0 g/dL HCT 38.7 35.7 - 45.2 % MCV 86.2 80.6 - 95.5 fL MCH 29.8 25.9 - 32.8 pg MCHC 34.6 31.6 - 35.1 g/dL RDW-SD 39.1 39.0 - 49.9 fL RDW-CV 12.4 12.0 - 15.5 % PLT 131 (L) 166 - 358 10*3/L MPV 11.2 9.5 - 12.9 fL IPF % 4.0 1.3 - 7.7 % NRBC/100 WBC 0.0 0.0 - 10.0 /100 WBCs NRBC x10^3 <0.01 10*3/L GRAN MAT (NEUT) % 67.5 % IMM GRAN % 0.60 % LYMPH % 22.2 % MONO % 9.4 % EOS % 0.0 % BASO % 0.3 % GRAN MAT x10^3(ANC) 2.37 1.88 - 7.09 10*3/uL IMM GRAN x10^3 <0.03 0.00 - 0.06 10*3/uL LYMPH x10^3 0.78 (L) 1.32 - 3.29 10*3/uL MONO x10^3 0.33 0.33 - 0.92 10*3/uL EOS x10^3 <0.03 (L) 0.03 - 0.39 10*3/uL BASO x10^3 <0.03 0.01 - 0.07 10*3/uL Basic Metabolic Panel (NA, K, CL, CO2, GLUCOSE, BUN, CREATININE, CA) Collection Time: 01/16/20 11:19 AM Result Value Ref Range NA 134 (L) 135 - 145 mmol/L K 3.9 3.5 - 5.0 mmol/L CL 102 98 - 108 mmol/L CO2 TOTAL 25 23 - 31 mmol/L AGAP 7 2 - 16 BUN 11 7 - 23 mg/dL GLUCOSE 100 70 - 110 mg/dL CREATININE 0.62 0.50 - 1.04 mg/dL CALCIUM 8.4 (L) 8.6 - 10.6 mg/dL eGFR Calculation (Non-) 98.9 mL/min/1.73m2 eGFR Calculation () 119.8 mL/min/1.73m2 Hepatic Function Panel (ALB, T.PRO, BILI T, BU/BC, ALT, AST, ALK PHOS) Collection Time: 01/16/20 11:19 AM Result Value Ref Range TOTAL BILI 0.5 0.1 - 1.1 mg/dL BILI UNCON 0.6 0.1 - 1.1 mg/dL BILI CONJ 0.0 0.0 - 0.3 mg/dL T PROTEIN 7.2 6.3 - 8.2 g/dL ALBUMIN 4.3 3.5 - 5.0 g/dL ALK PHOS 81 34 - 122 U/L ALTv 26 5 - 35 U/L AST(SGOT) 36 13 - 40 U/L Troponin I Collection Time: 01/16/20 11:19 AM Result Value Ref Range TROPONIN I <0.012 <=0.034 ng/mL Prothrombin Time (PT) / INR Collection Time: 01/16/20 11:19 AM Result Value Ref Range PROTIME PATIENT 13.0 12.0 - 14.7 Seconds INR 1.0 FIBRINOGEN Collection Time: 01/16/20 11:19 AM Result Value Ref Range Fibrinogen 380 214 - 470 mg/dL N-TERMINAL PRO-BNP Collection Time: 01/16/20 11:19 AM Result Value Ref Range NT-proBNP 51 <=125 pg/mL aPTT Collection Time: 01/16/20 11:19 AM Result Value Ref Range APTT Patient 34 23 - 38 Seconds D-DIMER Collection Time: 01/16/20 11:19 AM Result Value Ref Range D-DIMER 0.30 <0.41 g/mL (FEU) LACTATE DEHYDROGENASE Collection Time: 01/16/20 11:19 AM Result Value Ref Range LDH 518 300 - 600 U/L FERRITIN SERUM Collection Time: 01/16/20 11:19 AM Result Value Ref Range FERRITIN 66.4 11.0 - 264.0 ng/mL COVID-19 (ID NOW RAPID TESTING) Collection Time: 01/16/20 11:19 AM Specimen: NASOPHARYNGEAL SWAB Result Value Ref Range SARS-CoV-2 Rapid ID NOW Positive (A) Not Detected ACUTE CARE VENOUS BLOOD GAS Collection Time: 01/16/20 11:28 AM Result Value Ref Range PH 7.47 (H) 7.32 - 7.42 PCO2 EDDIE 33 (L) 41 - 51 mmHg PO2 EDDIE 56 (HH) 25 - 40 mmHg HCO3 EDDIE 24 24 - 28 mEq/L AC VBE(BEAKER) 0.6 mEq/L BLOOD CULTURE SCREEN Collection Time: 01/16/20 11:28 AM Specimen: VENOUS; Blood Result Value Ref Range Blood Culture-Aerobic Culture In Progress No growth Blood Culture-Anaerobic Culture In Progress No growth BLOOD CULTURE SCREEN Collection Time: 01/16/20 11:28 AM Specimen: VENOUS; Blood Result Value Ref Range Blood Culture-Aerobic Culture In Progress No growth Blood Culture-Anaerobic Culture In Progress No growth Hospital Encounter on 01/16/20 XR CHEST 1 VW COVID Narrative EXAM: XR CHEST 1 VW COVID HISTORY: 59 years-old; Female; sob covid + COMPARISON: 10/26/2016 radiograph FINDINGS: Lungs/Pleura: Hazy airspace and interstitial opacities in the right lower lung zone and the left upper zone lung zone are noted. There is no pleural effusion or pneumothorax. Heart/Mediastinum: The cardiomediastinal silhouette is normal. No acute osseous structure abnormality. Impression Hazy bilateral airspace and interstitial opacities are consistent with known Covid-19 infection. Disclaimer: Generally, the findings on chest imaging in COVID-19 are not specific, and overlap with other infections, including influenza, H1N1, SARS and MERS. According to the Centers for Disease Control (CDC) and recent statement of the [employer], viral testing remains the only specific method of diagnosis. Confirmation with the viral test is required, even if radiologic findings are suggestive of COVID-[address]. Preliminary Report Dictated by Resident: Leonila Jordan MD., have reviewed this study and agree with the above report. Orders and Treatments Orders Placed This Encounter Procedures XR CHEST 1 VW COVID Urinalysis CBC with Differential Basic Metabolic Panel (NA, K, CL, CO2, GLUCOSE, BUN, CREATININE, CA) Hepatic Function Panel (ALB, T.PRO, BILI T, BU/BC, ALT, AST, ALK PHOS) Troponin I Prothrombin Time (PT) / INR FIBRINOGEN N-TERMINAL PRO-BNP aPTT D-DIMER LACTATE DEHYDROGENASE FERRITIN SERUM ACUTE CARE VENOUS BLOOD GAS BLOOD CULTURE SCREEN BLOOD CULTURE SCREEN URINE CULTURE COVID-19 (ID NOW RAPID TESTING) Lactic Acid Whole Blood C-REACTIVE PROTEIN PROCALCITONIN PNEUMOCOCCAL ANTIGEN [facility] URINARY ANTIGEN TST VITAMIN D, 25-OH O2 Per Protocol Incentive Spirometry by RT Orders Placed This Encounter Medications clopidogreL (PLAVIX) 75 mg tablet azithromycin 250 mg tablet famotidine (PEPCID) 40 mg tablet cefdinir 300 mg capsule methylPREDNISolone 4 mg tablets enoxaparin (LOVENOX) injection 40 mg acetaminophen (TYLENOL) tablet 650 mg ondansetron (ZOFRAN (PF)) injection 4 mg albuterol (VENTOLIN) inhaler 2 Puff ascorbic acid (vitamin C) (VITAMIN C) tablet 500 mg cholecalciferol (vitamin D3) tablet 1,000 Units zinc sulfate (ORAZINC) capsule 220 mg Notes Marisa Baker is a 59 year old female who presents to ED with complaint of increased SOB, she reports Covid +on 01/09/20, symptoms began on 01/07/20. Several family members also positive. Reports last night she began experiencing difficulty breathing, checked her pulse oximetry and it was 80%. She used her grandson's nebulizer and it improved her pulse ox where it hovered between 85- 90% but she stillfelt SOB, She also reports feeling out of it during this time. She called her physician today who started her on medrol dose pack. she was already placed on doxycycline, plavix, pepcid, cefdinir, and has completed a z-pack all prescribed by her PCP. She was seen in this ED two day ago with abdominal pain that has since resolved. She admits to continued headaches and sore throat in addition to the chest tightness and SOB, She admits to a history of COPD , past smoker quit 10 years ago. Resting pulse oximetry in ED 95-96%, Stresspulse oximetry decreased to 90% . Plan: Chest 1 View Urinalysis CBC with Differential Basic Metabolic Panel (NA, K, CL, CO2, GLUCOSE, BUN, CREATININE, CA) Hepatic Function Panel (ALB, T.PRO, BILI T, BU/BC, ALT, AST, ALK PHOS) Troponin I Prothrombin Time (PT) / INR FIBRINOGEN N-TERMINAL PRO-BNP aPTT D-DIMER LACTATE DEHYDROGENASE FERRITIN SERUM ACUTE CARE VENOUS BLOOD GAS BLOOD CULTURE SCREEN BLOOD CULTURE SCREEN URINE CULTURE COVID-19 (ID NOW RAPID TESTING) Lactic Acid Whole Blood Lactic Acid Whole Blood Procedures Procedures Resting SaO2 96% on RA WNL Stress SaO2 90% on RA WNL EKG normal sinus rhythm, rate of 84 bpm , nonspecific T wave abnormality Diagnosis ICD-10-CM ICD-9-CM 1. COVID-19 virus infection U07.1 2. Pneumonia due to COVID-19 virus U07.1 J12.89 3. Chronic obstructive pulmonary disease with acute lower respiratory infection J44.0 496 519.8 MDM MDM Reviewed: previous chart, nursing note and vitals ED Course as of Jan 15 161 Sun Jan 16, [address] Cevallos will admit for observation [PD] discussed plan with patient to observe overnight and she is agreeable with plan of care 1259 Paged Hospitalist [PD] ED Course User Index [PD] Marlen Pond, 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 Patient Vitals for the past 24 hrs: BP Temp Temp src Pulse Resp SpO2 Weight 01/16/20 1300 131/84 79 16 95 % 01/16/20 1200 131/85 75 15 96 % 01/16/20 1055 (!) 144/93 38.3 C (100.9 F) Oral 85 16 96 % 72.6 kg (160 lb) Disposition and Condition ED Disposition ED Disposition Condition Comment Admit - Observation Good Patients undergoing COVID-19 testing are cared for in a designated unit and care team. Is this patient being tested for COVID-19?: Yes Treatment Team: [facility] [[id number]] Primary reason for admission: Lower respiratory tract infection due to COVID-19 virus [[id number]] Secondary reason for admission: SOB (shortness of breath) [[id number]] Is (or was) this a planned re-admission?: No Marlen Pond APRN- [facility] [id number] Associated attestation - Chance Kumar DO - 01/17/2020 7:33 AM CDTI was available for consultation at all times during the patient encounter. However, I did not see or evaluate the patient unless otherwise noted. Signature is for administrative purposes and not an endorsement of care provided.documented in this encounter Miscellaneous Notes Care Plan - Genie Pollard RN - 01/17/2020 3:53 PM CDT Problem: Pain Goal: Control of pain at or below patient's documented comfort goal 01/17/2020 155 by Genie Pollard RN Outcome: Adequate for discharge 01/17/2020945 by Genie Pollard RN Outcome: Progressing as expected Goal: Reduction in pain sensation 01/17/2020 155 by Genie Pollard RN Outcome: Adequate for discharge 01/17/2020945 by Genie Pollard RN Outcome: Progressing as expected Problem: Falls, Risk of Goal: Absence of falls 01/17/20201552 by Genie Pollard RN Outcome: Adequate for discharge 01/17/2020945 by Genie Pollard RN Outcome: Progressing as expected Problem: Discharge Planning Goal: Absence of venous thromboembolism 01/17/2020 155 by Genie Pollard RN Outcome: Adequate for discharge 01/17/2020945 by Genie Pollard RN Outcome: Progressing as expected Goal: Adequate for discharge 01/17/2020 155 by Genie Pollard RN Outcome: Adequate for discharge 01/17/2020945 by Genie Pollard RN Outcome: Progressing as expected Goal: Effective communication 01/17/20201552 by Genie Pollard RN Outcome: Adequate for discharge 01/17/2020945 by Genie Pollard RN Outcome: Progressing as expected Problem: Respiratory Function - Impaired Goal: Able to cough effectively 01/17/2020 155 by Genie Pollard RN Outcome: Adequate for discharge 01/17/2020945 by Genie Pollard RN Outcome: Progressing as expected Goal: Adequate oxygenation 01/17/20201552 by Genie Pollard RN Outcome: Adequate for discharge 01/17/2020945 by Genie Pollard RN Outcome: Progressing as expected Goal: Adequate work of breathing 01/17/2020 155 by Genie Pollard RN Outcome: Adequate for discharge 01/17/2020945 by Genie Pollard RN Outcome: Progressing as expected Goal: Patent airway 01/17/2020 1553 by Genie Pollard RN Outcome: Adequate for discharge 01/17/2020 0946 by Genie Pollard RN Outcome: Progressing as expected Problem: Respiratory Function - Impaired Goal: Adequate work of breathing 01/17/2020 1553 by Genie Pollard RN Outcome: Adequate for discharge 01/17/2020 0946 by Genie Pollard RN Outcome: Progressing as expected are Plan - Genie Pollard RN - 01/17/2020 9:46 AM CDT Problem: Pain Goal: Control of pain at or below patient's documented comfort goal Outcome: Progressing as expected Goal: Reduction in pain sensation Outcome: Progressing as expected Problem: Falls, Risk of Goal: Absence of falls Outcome: Progressing as expected Problem: Discharge Planning Goal: Absence of venous thromboembolism Outcome: Progressing as expected Goal: Adequate for discharge Outcome: Progressing as expected Goal: Effective communication Outcome: Progressing as expected Problem: Respiratory Function - Impaired Goal: Able to cough effectively Outcome: Progressing as expected Goal: Adequate oxygenation Outcome: Progressing as expected Goal: Adequate work of breathing Outcome: Progressing as expected Goal: Patent airway Outcome: Progressing as expected Problem: Respiratory Function - Impaired Goal: Adequate work of breathing Outcome: Progressing as expected D Nurse Note - Hilary Pike RN - 01/16/2020 1:29 PM CDTPatient admitted to [facility] inpatient observation for diagnosis of COVID 19, Pneumonia. Patient agrees to admission, discussed plan of care with patient and family. Patient is awake, alert, oriented, resp reg unlabored, color appropriate for race, PIV intact. No adverse reaction to medications administered while in ED. Belongings with patient to unit. Report to Alexandria REYES. documented in this encounter Plan of Treatment Date Type Specialty Care Team Description 02/07/2020 Office Visit Obstetrics & Gynecology Brit Dhaliwal PA-C [address] [place] [address] [phone] Name Type Priority Associated Diagnoses Date/Ti me BLOOD CULTURE SCREEN LAB STAT COVID-19 virus infec tion 01/16/2020 11:28 AM CDT BLOOD CULTURE SCREEN LAB STAT COVID-19 virus infec tion 01/16/2020 11:28 AM CDT Name Type Priority Associated Diagnoses Order S chedule SPUTUM CULTURE LAB Routine ONCE for 1 Oc currences starting 01/16/2020 unti l 01/16/2020 Health Maintenance Due Date Last Done Comments [...] encounter Procedures Procedure Name Priority Date/Time Associated Comments Diagnosis PNEUMOCOCCAL ANTIGEN Routine 01/16/2020 9:07 Res ults for this PM CDT procedure are i n the results section. [facility] URINARY Routine 01/16/2020 9:07 Resul ts for this ANTIGEN TST PM CDT procedure are i n the results section. PROCALCITONIN Routine 01/16/2020 4:39 Results fo r this PM CDT procedure are i n the results section. VITAMIN D, 25-OH Routine 01/16/2020 4:39 Results for this PM CDT procedure are i n the results section. C-REACTIVE PROTEIN Routine 01/16/2020 4:39 Resul ts for this PM CDT procedure are i n the results section. XR CHEST 1 VW COVID STAT 01/16/2020 12:14 COVID-19 virus Re sults for this PM CDT infection procedure are i n the results section. ACUTE CARE VENOUS STAT 01/16/2020 11:28 COVID-19 virus Resu lts for this BLOOD GAS AM CDT infection procedure are i n the results section. BLOOD CULTURE SCREEN STAT 01/16/2020 11:28 COVID-19 virus AM CDT infection BLOOD CULTURE SCREEN STAT 01/16/2020 11:28 COVID-19 virus AM CDT infection COVID-19 (ID NOW RAPID STAT 01/16/2020 11:19 COVID-19 virus Results for this TESTING) AM CDT infection procedure are i n the results section. N-TERMINAL PRO-BNP STAT 01/16/2020 11:19 COVID-19 virus Res ults for this AM CDT infection procedure are i n the results section. URINE CULTURE STAT 01/16/2020 11:19 COVID-19 virus Results for this AM CDT infection procedure are i n the results section. URINALYSIS STAT 01/16/2020 11:19 COVID-19 virus Results f or this AM CDT infection procedure are i n the results section. FIBRINOGEN STAT 01/16/2020 11:19 COVID-19 virus Results f or this AM CDT infection procedure are i n the results section. ACTIVATED PARTIAL STAT 01/16/2020 11:19 COVID-19 virus Resu lts for this THRMPLAS AMANDEEP AM CDT infection procedure are i n the results section. D-DIMER STAT 01/16/2020 11:19 COVID-19 virus Results f or this AM CDT infection procedure are i n the results section. PROTHROMBIN TIME / INR STAT 01/16/2020 11:19 COVID-19 virus Results for this AM CDT infection procedure are i n the results section. CBC WITH DIFF STAT 01/16/2020 11:19 COVID-19 virus Results for this AM CDT infection procedure are i n the results section. BASIC METABOLIC PANEL STAT 01/16/2020 11:19 COVID-19 virus Results for this (NA, K, CL, CO2, AM CDT infection procedure a re in GLUCOSE, BUN, the results CREATININE, CA) section. HEPATIC FUNCTION PANEL STAT 01/16/2020 11:19 COVID-19 virus Results for this (48801) AM CDT infection procedure are i n (ALB,T.PRO,BILI the results T,BU/BC,ALT,AST,ALK section. PHOS) TROPONIN I STAT 01/16/2020 11:19 COVID-19 virus Results f or this AM CDT infection procedure are i n the results section. FERRITIN SERUM STAT 01/16/2020 11:19 COVID-19 virus Results for this AM CDT infection procedure are i n the results section. LACTATE DEHYDROGENASE STAT 01/16/2020 11:19 COVID-19 virus Results for this AM CDT infection procedure are i n the results section. LACTIC ACID WHOLE STAT 01/16/2020 11:18 COVID-19 virus Resu lts for this BLOOD AM CDT infection procedure are i n the results section. EKG-12 LEAD STAT 01/16/2020 11:16 AM CDT NOTICE OF PRIVACY Routine 01/16/2020 10:44 PRACTICES AM CDT CONSENT/REFUSAL FOR Routine 01/16/2020 10:44 DIAGNOSIS AND AM CDT TREATMENT documented in this encounter Results [facility] URINARY ANTIGEN TST (01/16/2020 9:07 PM CDT) Pathologist Sig nature Legionella Urinary Negative Negative [facility] Specimen Urine - URINE, CLEAN CATCH Narrative Performed At Negative for L. pneumophilia serogroup I antigen in ur ine [facility] suggesting no recent or current infection. Infection d ue to Legionella cannot be ruled out since other serogroups and species may cause disease. Furthermore, antigens may n ot be present in urine during early stage of infection, or t he level of antigen present in urine may be below the det ection limit of the test. Performing Organization Address City/[facility]/Zipcode Phone Number [facility] CLIA: [id number] [place] [address] [phone] [facility] PNEUMOCOCCAL ANTIGEN (01/16/2020 9:07 PM CDT) Pathologist Sig nature S. pneumoniae antigen Negative Negative [facility] Specimen Urine - URINE, CLEAN CATCH Performing Organization Address City/[facility] Phone Number [facility] CLIA: [id number] [place] [address] [phone] [facility] VITAMIN D, 25-OH (01/16/2020 4:39 PM CDT) Pathologist Sig nature VIT D 25OH 28 25 - 80 ng/mL [facility] Specimen Blood - ARM, RIGHT Narrative Performed At Deficiency: <20 ng/mL [facility] Insufficiency: 20-24 ng/mL Optimal: 25-80 ng/mL Performing Organization Address City/State/Zipcode Phone Number [facility] CLIA: [id number] [place] [address] [place] [address] PROCALCITONIN (01/16/2020 4:39 PM CDT) Pathologist Sig nature Procalcitonin 0.03 <0.07 ng/mL [facility] Specimen Blood - ARM, RIGHT Narrative Performed At INTERPRETATION OF PROCALCITONIN RESULTS IN ADULTS >= 1 8 [facility] YEARS OF AGE Initiation and discontinuation of antibiotics on patie nts with suspected or confirmed Lower Respiratory Tract Infection in Adults >= 18 years of age. + + + +----- ------ + |Procalcitonin |Interpretation |Antibiotic |Considerations |ng/mL | |recommend ation | + + + +----- ------ + | <0.1 | Bacterial | Strongly | | | infection very | discouraged | Overruling: | | unlikely | | Clinically unstable + + + + H igh risk for adverse | <0.25 | Bacterial | Discouraged | outcome | | infection | | SEE IMPORTANT NOTE | | unlikely | | + + + +----- ------ + | >=0.25 | Bacterial | Encouraged | | | infection | | | | likely | | Consider treatment failure + + + + if l maritzaels does not decrease | >0.5 | Bacterial | Strongly | appropriately | | infection very | encouraged | | | likely | | + + + +----- ------ + Discontinuation of antibiotics in high-acuity patients with suspected or confirmed sepsis in Adults >= 18 years of age. + + + +----- ------ + |Procalcitonin |Interpretation |Antibiotic |Considerations |ng/mL | |recommend ation | + + + +----- ------ + | <0.25 | Bacterial | Strongly | | | infection very | discouraged | Overruling: | | unlikely | | Clinically unstable + + + + H igh risk for adverse | <0.5 or drop | Bacterial | Discouraged | outcome | >80% from | infection | | SEE IMPORTANT NOTE | highest PCT | unlikely | | | level | | | + + + +----- ------ + | >=0.5 | Bacterial | Encouraged | | | infection | | | | likely | | Consider treatment failure + + + + if l evels does not decrease | >1.0 | Bacterial | Strongly | appropriately | | infection very | encouraged | | | likely | | + + + +----- ------ + Percentage of drop of Procalcitonin calculation for Discontinuation of antibiotics in high-acuity patients with suspected or confirmed sepsis in Adults >= 18 years of age. Procalcitonin highest{}-Procalcitonin current{} Delta Procalcitonin = x100% Procalcitonin current {} IMPORTANT NOTE: Procalcitonin may be elevated without bacterial infection by physiologic stress related to t rauma, santillan, chronic dialysis, metastatic cancer, surgery in the past seven days, malaria, some fungal infections, and some forms of vasculitis. The interpretation algorithm may not apply to patients with immunosuppression (equivalent o f >10 mg of prednisone daily), HIV with CD4 cell count < 350 cells/mm3, active malignancy on systemic chemotherapy, solid organ transplant or hematopoietic stem cell transplant ation, or hospital acquired pneumonia. Additionally, some cli nical trials of procalcitonin have excluded patients with sh ock requiring vasopressor use, acute respiratory failure requiring mechanical ventilation, or those with known lung abscess/empyema. For further information please refer to: [email or web address] Performing Organization Address City/[facility]/Zipcode Phone Number [facility] CLIA: [id number] [place] [address] [place] [address] C-REACTIVE PROTEIN (01/16/2020 4:39 PM CDT) [facility] Sig nature CRP 1.0 (H) <0.8 mg/dL [facility] Specimen Blood - ARM, RIGHT Performing Organization Address [facility]/Zipcode Phone Number [facility] CLIA: [id number] [place] [address] [place] [address] XR CHEST 1 VW COVID (01/16/2020 12:14 PM CDT) Specimen Impressions Performed At PACS/VR/DOSE Hazy bilateral airspace and interstitial opacities are consistent with known Covid-19 infection. Disclaimer: Generally, the findings on c hest imaging in COVID-19 are not specific, and overlap with other infecti ons, including influenza, H1N1, SARS and MERS. According to the Centers for Disease Control (CDC) and recent statement of the [employer], viral testing remai ns the only specific method of diagnosis. Confirmation with the viral test is required, even if radiologic findings are suggestive of CO VID-[address]. Preliminary Report Dictated by Resident: Leonila Jordan MD., have reviewe d this study and agree with the above report. Narrative Performed At EXAM: PACS/VR/DOSE XR CHEST 1 VW COVID HISTORY: 59 years-old; Female; sob covid + COMPARISON: 10/26/2016 radiograph FINDINGS: Lungs/Pleura: Hazy airspace and interstitial opacities in the right lower lung zone and the left upper zone lung zone are noted. There is no pleural effusion or pneumothorax. Heart/Mediastinum: The cardiomediastinal silhouette is normal. No acute osseous structure abnormality. Procedure Note [facility], Radiant Results Inft User - 2019 1:21 PM CDT EXAM: XR CHEST 1 VW COVID HISTORY: 59 years-old; Female; sob covid + COMPARISON: 10/26/2016 radiograph FINDINGS: Lungs/Pleura: Hazy airspace and intersti tial opacities in the right lower lung zone and the left upper zone lung z one are noted. There is no pleural effusion or pneumothorax. Heart/Mediastinum: The cardiomediastinal silhouette is normal. No acute osseous structure abnormality. IMPRESSION Hazy bilateral airspace and interstitial opacities are consistent with known Covid-19 infection. Disclaimer: Generally, the findings on c hest imaging in COVID-19 are not specific, and overlap with other infecti ons, including influenza, H1N1, SARS and MERS. According to the Centers for Disease Con trol (CDC) and recent statement of the [employer], viral testing remains the only specific method of diagnosis. Confirmation with t he viral test is required, even if radiologic findings are suggestive of CO VID-[address]. Preliminary Report Dictated by Resident: Leonila Jordan MD., have reviewed this study and agree with the above report. Performing Organization Address City/State/Zipcode Phone Number PACS/VR/DOSE ACUTE CARE VENOUS BLOOD GAS (01/16/2020 11:28 AM CDT) Pathologist Sig nature PH 7.47 (H) 7.32 - 7.42 [facility] PCO2 EDDIE 33 (L) 41 - 51 mmHg [facility] PO2 EDDIE 56 (HH) 25 - 40 mmHg [facility] HCO3 EDDIE 24 24 - 28 mEq/L [facility] AC VBE(BEAKER) 0.6 mEq/L [facility] Specimen Blood - VENOUS Performing Organization Address City/State/Zipcode Phone Number [facility] CLIA: [id number] [place] [address] COVID-19 (ID NOW RAPID TESTING) (01/16/2020 11:19 AM CDT) SARS-CoV-2 Rapid ID Positive (A) Not Detected [facility] Specimen Swab - NASOPHARYNGEAL SWAB Narrative Performed At [facility] COVID-19 Assay is an isothermal nucleic [facility] acid amplification test intended for the qualitative detection of nucleic acid from SARS-CoV-2 viral RNA in nasopharyngeal (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) specimens. It is used under Emergency Use Authorization (EUA) by FDA. The limit of detection (LOD) of the assay is 125 Genome Equivalents/mL. A positive result is indicative of the presence of SARS-CoV-2 RNA. Clinical correlation with patient history and other diagnostic information is necessary to determine patient infection status. A negative (Not Detected) result does not preclude SARS-CoV-2 infection. In patients with clinical symptoms and other tests that are consistent with SARS-CoV-2 infection, negative results should be treated as presumptive negative and a new specimen should be tested with alternative PCR molecular test. Invalid: Please collect a new specimen for repeat patient testing if clinically indicated. Performing Organization Address [facility] Phone Number [facility] CLIA: [id number] [place] [address] URINE CULTURE (01/16/2020 11:19 AM CDT) Pathologist Sig [facility] URINE CULTURE No aerobic growth [facility] (< 1000 CFU/mL) SERVICES Specimen Urine - URINE, CLEAN CATCH Performing Organization [facility] Phone Number [facility] CLIA: [id number] [place] [address] [place] [address] FERRITIN SERUM (01/16/2020 11:19 AM CDT) Pathologist Sig [facility] FERRITIN 66.4 11.0 - 264.0 ng/mL [facility] Specimen Blood - VENOUS Narrative Performed At [facility] has been reported to cause a negative [facility] bias, interpret results relative to patient's use of biotin. Performing Organization Address [facility] Phone Number [facility] CLIA: [id number] [place] [address] LACTATE DEHYDROGENASE (01/16/2020 11:19 AM CDT) Pathologist Sig [facility] LDH 518 300 - 600 U/L [facility] Specimen Blood - VENOUS Performing Organization Address [facility]/Zipcode Phone Number [facility] CLIA: [id number] [place] [address] D-DIMER (01/16/2020 11:19 AM CDT) [facility] D-DIMER 0.30 <0.41 g/mL (FEU) [facility] Specimen Blood - VENOUS Narrative Performed At This test may be used in conjunction with a [facility] clinical pretest probability (PTP) assessment model to exclude venous thromboembolism (VTE) in patients suspected of deep venous thrombosis (DVT) and pulmonary embolism (PE) A D-Dimer value less than 0.50 g/ml (FEU) has a negative predicative value of 96 to 100% (95% CI)and 97 to 100% (95% CI) as an aid in the diagnosis of deep vein thrombosis (DVT) and pulmonary embolism when there is low or moderate pretest probability of PE or DVT. D-Dimer values are expressed in initial fibrinogen equivalent units (FEU)" The assay results should be used with other information, including the clinical context, in forming a diagnosis. Performing Organization Address [facility] Phone Number [facility] CLIA: [id number] [place] [address] [place] [address] Drive aPTT (01/16/2020 11:19 AM CDT) [facility] APTT Patient 34 23 - 38 Seconds [facility] Specimen Blood - VENOUS Narrative Performed At The [facility] patient population mean normal value [facility] for aPTT is 30 seconds. Performing Organization Address [facility] Phone Number [facility] CLIA: [id number] [place] [address] N-TERMINAL PRO-BNP (01/16/2020 11:19 AM CDT) [facility] NT-proBNP 51 <=125 pg/mL [facility] Specimen Blood - VENOUS Narrative Performed At Biotin has been reported to cause a negative [facility] bias, interpret results relative to patient's use of biotin. Performing Organization Address [facility] Cent[facility] Phone Number [facility] CLIA: [id number] [place] [address] FIBRINOGEN (01/16/2020 11:19 AM CDT) Pathologist [facility] Fibrinogen 380 214 - 470 mg/dL [facility] Specimen Blood - VENOUS Performing Organization Address City/[facility] Phone Number [facility] CLIA: [id number] [place] [address] Prothrombin Time (PT) / INR (01/16/2020 11:19 AM CDT) PROTIME PATIENT 13.0 12.0 - 14.7 [facility] LABORATORY INR 1.0Comment: Normal [facility] INR <1.1; Warfarin [facility] Therapeutic range LABORATORY 2.0 to 3.0 or 2.5 to 3.5, depending upon the indications. Specimen Blood - VENOUS Performing Organization Address [facility] Phone Number [facility] CLIA: [id number] [place] [address] Troponin I (01/16/2020 11:19 AM CDT) Pathologist Sig [facility] TROPONIN I <0.012 <=0.034 ng/mL [facility] Specimen Blood - VENOUS Narrative Performed At Equal or Less than 0.034 ng/ml---Normal [facility] Note: Cardiac troponin begins to rise 3-4 hours after the onset of ischemia. Repeat in 4-6 hours if the sample was drawn within 3-4 hours of the onset of the symptom and found normal. Between 0.035 and 0.120 ng/mL--- Borderline. Questionable myocardial injury or necros is Note: Serial measurement may be necessary to confirm or exclude the diagnosis of myocardial injury or necrosis; Clinical correlation (symptoms, EKGs, imaging studies, and others) required; Repeat in 4-6 hours if clinically indicated. Equal or Higher than 0.121 ng/mL---Abnormal. Myocardial Injury or Necrosis Likely Biotin has been reported to cause a negative bias, interpret results relative to patient's use of biotin. Performing Organization Address [facility] Phone Number [facility] CLIA: [id number] [place] [address] LABORATORY [address] [facility] Hepatic Function Panel (ALB, T.PRO, BILI T, BU/BC, ALT, AST, ALK PHOS) (01/16/2020 11:19 AM CDT) [facility] TOTAL BILI 0.5 0.1 - 1.1 mg/dL [facility] BILI UNCON 0.6 0.1 - 1.1 mg/dL [facility] BILI CONJ 0.0 0.0 - 0.3 mg/dL [facility] T PROTEIN 7.2 6.3 - 8.2 g/dL [facility] ALBUMIN 4.3 3.5 - 5.0 g/dL [facility] ALK PHOS 81 34 - 122 U/L [facility] ALTv 26 5 - 35 U/L [facility] AST(SGOT) 36 13 - 40 U/L [facility] Specimen Blood - VENOUS Performing Organization Address City/State/Zipcode Phone Number [facility] CLIA: [id number] [place] [address] LABORATORY [address] [facility] Basic Metabolic Panel (NA, K, CL, CO2, GLUCOSE, BUN, CREATININE, CA) (01/16/2020 11:19 AM CDT) [facility] NA 134 (L) 135 - 145 [facility] mmol/L [facility]OR[facility] K 3.9 3.5 - 5.0 [facility] mmol/L [facility] CL 102 98 - 108 mmol/L [facility] CO2 TOTAL 25 23 - 31 mmol/L [facility] AGAP 7 2 - 16 [facility] BUN 11 7 - 23 mg/dL [facility] GLUCOSE 100 70 - 110 mg/dL [facility] CREATININE 0.62 0.50 - 1.04 [facility] mg/dL [facility] CALCIUM 8.4 (L) 8.6 - 10.6 [facility] mg/dL [facility] LABOR[facility] eGFR Calculation 98.9 mL/min/1.73m2 [facility] (Non-[facility] LABORATORY [employer]) eGFR Calculation 119.8 mL/min/1.73m2 [facility] () [facility] Specimen Blood - VENOUS Narrative Performed At Association of Glomerular Filtration Rate (GFR) [facility] and Staging of Kidney Disease* + [...] tests). Performing Organization Address City/State/Zipcode Phone Number [facility] CLIA: [id number] [place] [address] CBC with Differential (01/16/2020 11:19 AM CDT) WBC 3.51 (L) 4.30 - 11.10 [facility] 10*3/L [facility] RBC 4.49 3.93 - 5.25 [facility] 10*6/L [facility] HGB 13.4 11.6 - 15.0 [facility] g/dL [facility] HCT 38.7 35.7 - 45.2 % [facility] MCV 86.2 80.6 - 95.5 [facility] LABORATORY MCH 29.8 25.9 - 32.8 [facility] LABORATORY MCHC 34.6 31.6 - 35.1 [facility] g/dL [facility] RDW-SD 39.1 39.0 - 49.9 [facility] LABORATORY RDW-CV 12.4 12.0 - 15.5 % [facility] LABORATORY PLT 131 (L) 166 - 358 [facility] 10*3/L [facility] LABORATORY MPV 11.2 9.5 - 12.9 [facility] LABORATORY IPF % 4.0Comment: Platelet 1.3 - 7.7 % [facility] count measured by HOSPITAL fluorescence method. LABORATORY NRBC/100 WBC 0.0 0.0 - 10.0 [facility] /100 WBCs [facility] LAB[facility] NRBC x10^3 <0.01 10*3/L [facility] GRAN MAT (NEUT) % 67.5 % [facility] IMM GRAN % 0.60 % [facility] LYMPH % 22.2 % [facility] MONO % 9.4 % [facility] EOS % 0.0 % [facility] BASO % 0.3 % [facility] GRAN MAT 2.37 1.88 - 7.09 [facility] x10^3(ANC) 10*3/uL [facility] LABORATORY IMM GRAN x10^3 <0.03 0.00 - 0.06 [facility] 10*3/uL [facility] LAB[facility]ATORY LYMPH x10^3 0.78 (L) 1.32 - 3.29 [facility] 10*3/uL [facility] LAB[facility] MONO x10^3 0.33 0.33 - 0.92 [facility] 10*3/uL [facility] LAB[facility] EOS x10^3 <0.03 (L) 0.03 - 0.39 [facility] 10*3/uL [facility] BASO x10^3 <0.03 0.01 - 0.07 [facility] 10*3/uL [facility] LABOR[facility] Specimen Blood - VENOUS Performing Organization Address City/State/Zipcode Phone Number [facility] CLIA: [id number] [place] [id number] LABORAT[address] Urinalysis (01/16/2020 11:19 AM CDT) Pathologist Sig nature APPEARANCE Clear Clear [facility] COLOR Yellow Yellow [facility] PH 5.0 4.8 - 8.0 [facility] SP GRAVITY 1.025 1.003 - 1.030 [facility] GLU U QUAL Normal Normal [facility] BLOOD Negative Negative [facility] KETONES 80 mg/dL (A) Negative [facility] PROTEIN Negative Negative [facility] UROBILIN Normal Normal [facility] BILIRUBIN Negative Negative [facility] NITRITE Negative Negative [facility] LEUK JOSE Negative Negative [facility] RBC/HPF 2 0 - 3 HPF [facility] WBC/HPF 2 0 - 5 HPF [facility] BACTERIA Few (A) Negative [facility] MUCOUS Slight (A) Negative LPF [facility] SQ EPITH 1 HPF [facility] Specimen Urine - URINE, CLEAN CATCH Performing Organization Address City/[facility] Phone Number [facility] CLIA: [id number] [place] [address] Lactic Acid Whole Blood (01/16/2020 11:18 AM CDT) [facility] LACTIC ACID 1.02 0.30 - 2.60 mmol/L [facility]ORAT[facility] Specimen Blood - VENOUS Performing Organization Address [facility] Phone Number [facility] CLIA: [id number] [place] [address] documented in this encounter Visit Diagnoses Diagnosis COVID-19 virus infection - Primary Pneumonia due to COVID-19 virus Chronic obstructive pulmonary disease wi th acute lower respiratory infection Obstructive chronic bronchitis with exac erbation Lower respiratory tract infection due to COVID-19 virus documented in this encounter Administered Medications Medication Order MAR Action Action Date Dose Rate Site acetaminophen (TYLENOL) tablet Given 01/16/2020 4:40 PM CDT 650 mg 650 mg 650 mg, Oral, Q6HPRN, Starting 01/16/20 at 1602, Until Discontinued, Routine, Pain (scale 1-3) albuterol (VENTOLIN) inhaler 2 Puff Given 01/17/2020 1:30 PM CDT 2 Puffs 2 Puff, Inhalation, Q4HPRN, Starting 01/16/20 at 1840, Until Discontinued, Routine, Wheezing, Shortness of Breath, Is this order for a patient with suspected or confirmed COVID-19 infection? Yes ascorbic acid (vitamin C) (VITAMIN C) tablet Given 8:32 AM CDT 500 mg 500 mg 500 mg, Oral, BID, First dose on 01/16/20 at 2000, Until Discontinued, Routine Given 01/16/2020 9:06 PM CDT 500 mg benzonatate (TESSALON PERLES) capsule 10 0 mg Given 01/17/2020 1:06 PM CDT 100 mg 100 mg, Oral, TID, First dose on 01/16/20 at 2000, Until Discontinued, Routine Given 01/17/2020 8:33 AM CDT 100 mg Given 01/16/2020 9:06 PM CDT 100 mg cholecalciferol (vitamin D3) tablet Given 01/17/2020 8:33 AM CD T 1,000 Units 1,000 Units 1,000 Units, Oral, DAILY, First dose on Fri01/17/20 at 0900, Until Discontinued, Routine enoxaparin (LOVENOX) injection 40 mg Given 01/17/2020 8:23 AM CDT 40 mg Abdo men-SC 40 mg, Subcutaneous, Q24H, First dose on Fri01/17/20 at 0900, Until Discontinued, Routine famotidine (PEPCID AC) tablet 40 mg Given 01/17/2020 8:33 AM CDT 40 mg 40 mg, Oral, DAILY, First dose on Fri01/17/20 at 0900, Until Discontinued, Routine zinc sulfate (ORAZINC) capsule 220 mg Given 01/17/2020 1:06 PM CDT 220 mg 220 mg, Oral, TID, First dose on 01/16/20 at 2000, Until Discontinued, Routine Given 01/17/2020 8:33 AM CDT 220 mg Given 01/16/2020 9:06 PM CDT 220 mg zolpidem (AMBIEN) tablet 5 mg Given 01/16/2020 9:06 PM CDT 5 mg 5 mg, Oral, QHSPRN, Starting 01/16/20 at 1846, Until Discontinued, Routine, Insomnia documented in this encounter Additional Health Concerns Infection Onset Date Last Indicated Resolved Time COVID-19 Rule Out 01/16/2020 01/16/2020 01/16/2020 11: 59 AM CDT COVID-19 Confirmed 01/16/2020 01/16/2020 documented as of this encounter Insurance Payer Benefit Plan Subscriber ID Effective Dates Phone Address Type / Group [facility] [id number] 2017-Jany [phone] [address] PPO/POS [place] - OUT OF 7 [id number] [place] [address] documented as of this encounter
--- OUTSIDE RECORDS SUMMARY | 2020-01-20 21:58 | XMS REPORT | Continuity of Care Document ---
:1960 Author Organization [facility] t Address [address] [place] [address] Care Team Providers Name Role Phone Tenisha Pond NP Attending Clinician Cb CUENCA Attending Clinician Rolando Manzo MD Attending Clinician Madhuri LIN Attending Clinician Cb CUENCA Admitting Clinician Problems This patient has no known problems. Allergies, Adverse Reactions, Alerts This patient has no known allergies or adverse reactions. Medications This patient has no known medications. Procedures This patient has no known procedures. Encounters Start End Encounter Admission Attending Care Care Encounter Source Date/Time Date/Time Type Type Clinicians Facility Department ID 2020-01-16 2020-01-17 Emergency Marlen Pond [facility] [id number] 10:51:00 16:50:00 Vincenzo Vivar [id number] [place] [id number] [place] [id number] 2020-01-14 2020-01-14 Emergency Anais [facility] [id number] 04:47:00 06:47:00 Davis Caldwell [id number] [place] [id number] [place] [id number] 2019-10-07 2019-10-07 Refill Madhuri BRIGID [id number] 00:00:00 00:00:00 Brit Caldwell [id number] [place] [id number] [id number] [facility] [address] 2019-02-04 2019-02-04 Office Maduhri BRIGID [id number] 08:19:51 08:42:41 Visit Brit Caldwell [id number] [place] [id number] [facility] [id number] [address] Results This patient has no known results.
[2020-01-20] MEDS ORDERED: ONDANSETRON 4 MG/2 ML VIAL ONE (22:23)
[2020-01-20] MEDS ORDERED: FAMOTIDINE 20 MG/2 ML VIAL IV ONE (22:24)
[2020-01-20] MEDS ORDERED: NA CHLORIDE 0.9% 1,000 ML ONE (22:24)
[2020-01-20] MEDS ORDERED: ACETAMINOPHEN 500 MG TAB ONE (22:24)
[2020-01-20 22:47] LABS: Absolute Lymphocytes (CBC) 0.6 K/uL (0.7-4.9); Basophils % 0.3 % (0-1.3); Hematocrit 42.5 % (36.0-45.0); MPV 9.4 fL (7.6-11.3); RBC Red Blood Cell Count 4.91 M/uL (3.86-4.86)
[2020-01-20 23:01] LABS: Albumin 3.5 g/dL (3.4-5.0); Bilirubin Direct 0.2 mg/dL (0-0.2); Bilirubin Total 0.6 mg/dL (0.2-1.0); Magnesium 2.2 mg/dL (1.8-2.4); Potassium 3.3 mmol/L (3.5-5.1); Protein, Total 8.5 g/dL (6.4-8.2)
[2020-01-20] MEDS ORDERED: IBUPROFEN 400 MG TAB ONE (23:57)
[2020-01-21] MEDS ORDERED: ONDANSETRON 4 MG/2 ML VIAL ONE (00:10)
[2020-01-21 00:53] LABS: Urine Bacteria <20 /HPF (<20); Urine Culture Reflex Order NOT NEEDED; Urine RBC <5 /HPF (NONE SEEN)
[2020-01-21] MEDS ORDERED: POTASSIUM 25 MEQ EFFERV TAB ONE (00:53)
[2020-01-21] MEDS ORDERED: CEFTRIAXONE/SWI 1gm 1 GM/10 ML SYR ONE (00:53)
[2020-01-21 00:55] LABS: Urine Blood NEGATIVE (NEG); Urine Glucose NEGATIVE (NEG); Urine Protein TRACE (NEG); Urine Specific Gravity <1.005 (1.005-1.030); Urine pH 5.5 (5.0-7.0)
--- NOTE | 2020-01-21 01:00 | ER ---
Nurse's Notes [facility] Name: Marisa Baker Age: 59 yrs Sex: Female : 1960 Arrival Date: 01/20/2020 Time: 21:55 Bed 7 Private MD: Diagnosis: Nausea and vomiting;Pneumonia due to other specified infectious organisms;Coronavirus infection, unspecified Presentation: 01/19 22:05 Chief complaint: Patient states: Was tested positive for COvid for the 2nd time 4 days wh ago. Was positive also on 01/09/2020. Pt now C/O nausea, vomiting and diarrhea. Pt states cannot keep anything down. Denies SOB or dyspnea. Coronavirus screen: Client reports previous positive COVID test result. Ebola Screen: Patient negative for fever greater than or equal to 101.5 degrees Fahrenheit, and additional compatible Ebola Virus Disease symptoms Patient denies exposure to infectious person. Initial Sepsis Screen: Does the patient meet any 2 criteria? Temp <36.0*C (96.8*F)) or > 38.3*C (100.9*F). Does the patient have a suspected source of infection? Yes: Other: Diarrhea. Risk Assessment: Do you want to hurt yourself or someone else? Patient reports no desire to harm self or others. Onset of symptoms was January 20, 2020. 22:05 Method Of Arrival: Wheelchair 22:16 Acuity: YESSI 3 wh Historical: - Allergies: 22:45 Codeine; 22:45 diphenhydramine HCl; irritability; 22:45 Adhesives; - Home Meds: 22:45 None [Active]; - PMHx: 22:45 "small blood clot somewhere"; CVA; - PSHx: 22:45 Hysterectomy; ; - Immunization history:: Adult Immunizations up to date. - Social history:: Smoking status: Patient/guardian denies using. Screenin:41 Abuse screen: Denies threats or abuse. Denies injuries from another. Nutritional screening: No deficits noted. Tuberculosis screening: No symptoms or risk factors identified. Fall Risk None identified. Assessment: 22:41 General: Appears in no apparent distress. uncomfortable, Behavior is calm, cooperative, wh appropriate for age. Pain: Pain: Denies pain. 22:42 Neuro: Level of Consciousness is awake, alert, obeys commands, Oriented to person, wh place, time, situation, Appropriate for age. Cardiovascular: Heart tones S1 S2. Respiratory: Airway is patent Respiratory effort is even, unlabored, Respiratory pattern is regular, symmetrical, Breath sounds are clear bilaterally. GI: Abdomen is flat, non-distended, Bowel sounds present X 4 quads. Abd is soft Abdomen is tender to palpation Reports diarrhea, nausea, vomiting. : No signs and/or symptoms were reported regarding the genitourinary system. EENT: No signs and/or symptoms were reported regarding the EENT system. Derm: Skin is intact, is healthy with good turgor, Skin is pink, warm \\T\\ dry. normal. Musculoskeletal: Circulation, motion, and sensation intact. 01/20 00:00 Reassessment: No changes from previously documented assessment. Patient and/or family wh updated on plan of care and expected duration. Pain level reassessed. Patient is alert, oriented x 3, equal unlabored respirations, skin warm/dry/pink. 01:30 Reassessment: Patient and/or family updated on plan of care and expected duration. Pain wh level reassessed. Patient is alert, oriented x 3, equal unlabored respirations, skin warm/dry/pink. Patient states feeling better. Patient states symptoms have improved. Vital Signs: 01/19 22:16 BP 126 / 82; Pulse 89; Resp 18; Temp 101; Pulse Ox 99% on R/A; Weight 72.57 kg; Height 5 ft. 3 in. (160.02 cm); 01/20 00:15 BP 115 / 66; Pulse 79; Resp 18; Temp 99; Pulse Ox 97% on R/A; 01:30 BP 101 / 62; Pulse 67; Resp 18; Pulse Ox 95% ; 01/19 22:16 Body Mass Index 28.34 (72.57 kg, 160.02 cm) ED Course: 01/19 21:55 Patient arrived in ED. cl3 21:59 Alvino Kam PA is PHCP. cp 21:59 Skinny Hernandez MD is Attending Physician. cp 22:17 Triage completed. 22:25 Inserted saline lock: 20 gauge in right antecubital area, using aseptic technique. Blood collected. 22:36 Reza Ramírze is Primary Nurse. 22:43 XRAY Chest (1 view) In Process Unspecified. EDMS 22:43 Arm band placed on right wrist. wh 22:43 Patient has correct armband on for positive identification. Bed in low position. Call light in reach. Side rails up X 1. Pulse ox on. NIBP on. 23:45 CT Abd/Pelvis - IV Contrast Only In Process Unspecified. EDMS 01/20 01:48 No provider procedures requiring assistance completed. IV discontinued, intact, bleeding controlled, No redness/swelling at site. Administered Medications: 01/19 22:33 Drug: NS 0.9% 1000 ml Route: IV; Rate: 1 bolus; Site: right antecubital; 01/20 00:19 Follow up: Response: No adverse reaction; IV Status: Completed infusion 01/19 22:35 Drug: Pepcid 20 mg Route: IVP; Site: right antecubital; 01/20 00:19 Follow up: Response: No adverse reaction 01/19 22:37 Drug: Zofran (Ondansetron) 4 mg Route: IVP; Site: right antecubital; 01/20 00:20 Follow up: Response: No adverse reaction 01/19 22:50 Drug: Tylenol 1000 mg Route: PO; 01/20 00:20 Follow up: Response: No adverse reaction; Temperature is decreased 00:17 Drug: Ibuprofen 800 mg Route: PO; 01:32 Follow up: Response: No adverse reaction 01:32 Follow up: Response: No adverse reaction; Temperature is decreased 00:17 Drug: Zofran (Ondansetron) 4 mg Route: IVP; Site: right antecubital; 01:32 Follow up: Response: No adverse reaction; Nausea is decreased 00:58 Drug: Rocephin 1 grams Route: IV; Rate: calculated rate; Site: right antecubital; 01:32 Follow up: Response: No adverse reaction; IV Status: Completed infusion 00:59 Drug: Potassium Effervescent Tablet 50 mEq Route: PO; 01:32 Follow up: Response: No adverse reaction Outcome: 00:59 Discharge ordered by . cp 01:48 Discharged to home via wheelchair, with family. 01:48 Condition: stable 01:48 Discharge instructions given to patient, Instructed on discharge instructions, follow up and referral plans. medication usage, POC Demonstrated understanding of instructions, follow-up care, medications, POC Prescriptions given X 2. 01:48 Patient left the ED. Signatures: Dispatcher [employer] EDMS Alvino Kam PA PA cp [place], Winsy Tasha Salmon cl3 Corrections: (The following items were deleted from the chart) 01/19 22:38 22:16 BP 126 / 82; Pulse 93bpm; Resp 19bpm; Pulse Ox 99% RA; Temp 101F; [facility] 22:43 22:41 Pain: [facility] 01/20 01:48 01:30 BP 101 / 62; Pulse 67bpm; Resp 18bpm; Pulse Ox 95%; Temp 98.6F; [facility]
--- NOTE | 2020-01-21 01:00 | EDPHYS ---
Physician Documentation [facility] Name: Marisa Baker Age: 59 yrs Sex: Female : 1960 Arrival Date: 01/20/2020 Time: 21:55 Bed 7 Private MD: ED Physician Skinny Hernandez HPI: 01/19 22:09 This 59 yrs old Female presents to ER via Unassigned with complaints of cp Vomiting/Diarrhea, Covid. 22:09 The patient presents to the emergency department with nausea, that is moderate, cp vomiting, that is intermittent, diarrhea, that is intermittent. Onset: The symptoms/episode began/occurred 3 day(s) ago. Associated signs and symptoms: Pertinent positives: diarrhea, nausea, vomiting, Pertinent negatives: fever, GI bleeding, chest pain, shortness of breath. Patient reports initially testing positive for COVID-19 on 12-09-2019. Patient reports she was recently hospitalized overnight at [facility] for chest pain. Historical: - Allergies: 22:45 Codeine; 22:45 diphenhydramine HCl; irritability; 22:45 Adhesives; - Home Meds: 22:45 None [Active]; - PMHx: 22:45 "small blood clot somewhere"; CVA; - PSHx: 22:45 Hysterectomy; ; - Immunization history:: Adult Immunizations up to date. - Social history:: Smoking status: Patient/guardian denies using. ROS: 22:20 Constitutional: Positive for fever, poor PO intake. cp 22:20 Eyes: Negative for injury, pain, redness, and discharge. cp 22:20 Cardiovascular: Negative for chest pain, edema, palpitations. 22:20 Respiratory: Negative for cough, shortness of breath, wheezing. 22:20 Abdomen/GI: Positive for abdominal pain, nausea and vomiting, diarrhea, Negative for constipation, hematemesis, black/tarry stool, rectal bleeding. 22:20 Neuro: Negative for altered mental status. cp 22:20 All other systems are negative. cp Exam: 22:25 Constitutional: The patient appears in no acute distress, alert, awake, cp non-diaphoretic, non-toxic, well developed, well nourished. 22:25 Head/Face: Normocephalic, atraumatic. cp 22:25 Eyes: Periorbital structures: appear normal, Conjunctiva: normal, no exudate, no cp injection, Sclera: no appreciated abnormality, Lids and lashes: appear normal, bilaterally. 22:25 ENT: External ear(s): are unremarkable, Nose: is normal, Mouth: Lips: moist, Oral cp mucosa: moist, Posterior pharynx: Airway: no evidence of obstruction, patent. 22:25 Neck: ROM/movement: is normal, is supple, no meningismus, no nuchal rigidity. 22:25 Chest/axilla: Inspection: normal, Palpation: is normal, no crepitus, no tenderness. 22:25 Cardiovascular: Rate: normal, Rhythm: regular, Edema: is not appreciated, JVD: is not appreciated. 22:25 Respiratory: the patient does not display signs of respiratory distress, Respirations: normal, no use of accessory muscles, no retractions, labored breathing, is not present, Breath sounds: are clear throughout, no decreased breath sounds, no stridor, no wheezing. 22:25 Abdomen/GI: Inspection: abdomen appears normal, Bowel sounds: active, all quadrants, Palpation: soft, in all quadrants, moderate abdominal tenderness, in the right upper quadrant and left upper quadrant, rebound tenderness, is not appreciated, involuntary guarding, is not appreciated. 22:25 Back: CVA tenderness, that is mild. 22:25 Neuro: Orientation: to person, place \\T\\ time. Mentation: is normal, Motor: moves all fours, strength is normal. Vital Signs: 22:16 BP 126 / 82; Pulse 89; Resp 18; Temp 101; Pulse Ox 99% on R/A; Weight 72.57 kg; Height 5 ft. 3 in. (160.02 cm); 01/20 00:15 BP 115 / 66; Pulse 79; Resp 18; Temp 99; Pulse Ox 97% on R/A; wh 01:30 BP 101 / 62; Pulse 67; Resp 18; Pulse Ox 95% ; 01/19 22:16 Body Mass Index 28.34 (72.57 kg, 160.02 cm) wh MDM: 01/19 22:08 Patient medically screened. cp 22:40 Differential diagnosis: gastritis, cholecystitis, pancreatitis, viral gastroenteritis, cp gastroenteritis, dehydration, sepsis. 01/20 00:59 Data reviewed: vital signs, nurses notes, lab test result(s), radiologic studies, CT cp scan, plain films, and as a result, I will discharge patient. 00:59 Counseling: I had a detailed discussion with the patient and/or guardian regarding: the cp historical points, exam findings, and any diagnostic results supporting the discharge/admit diagnosis, lab results, radiology results, to return to the emergency department if symptoms worsen or persist or if there are any questions or concerns that arise at home. 00:59 Response to treatment: the patient's symptoms have markedly improved after treatment, cp Nausea and pain improved, vomiting resolved. Patient observed tolerating po fluids. Will discharge to home for continued monitoring. 01/19 22:08 Order name: Basic Metabolic Panel; Complete Time: 23:36 01/19 23:36 Interpretation: Normal except: K 3.3; GFR 82. 01/19 22:08 Order name: CBC with Diff; Complete Time: 22:53 01/19 22:53 Interpretation: Normal except: RBC 4.91; ALEXANDER% 78.7; LYM% 10.0; LYMA 0.6. 01/19 22:08 Order name: Hepatic Function; Complete Time: 23:36 01/19 23:37 Interpretation: Normal except: AST 87; ALK 125; TP 8.5; GLOB 5.0; A/G 0.7. 01/19 22:08 Order name: Lipase; Complete Time: 23:36 01/19 22:08 Order name: Magnesium; Complete Time: 23:36 01/19 22:14 Order name: Lactate; Complete Time: 23:36 01/19 22:14 Order name: Procalcitonin; Complete Time: 23:36 01/19 22:14 Order name: Blood Culture Adult (2) 01/19 22:14 Order name: Urine Microscopic Only 01/19 22:14 Order name: Influenza Screen (a \\T\\ B); Complete Time: 23:36 01/20 00:32 Order name: Urine Dipstick--Ancillary (enter results) mw2 01/19 22:08 Order name: IV Saline Lock; Complete Time: 22:36 01/19 22:08 Order name: Labs collected and sent; Complete Time: 22:37 01/19 22:14 Order name: Urine Dipstick-Ancillary (obtain specimen); Complete Time: 00:26 cp 01/19 22:14 Order name: XRAY Chest (1 view) 01/19 22:14 Order name: CT Abd/Pelvis - IV Contrast Only 01/20 00:32 Order name: Urine Dipstick-Ancillary EDMS 01/20 00:34 Order name: PO challenge; Complete Time: 00:59 cp Administered Medications: 01/19 22:33 Drug: NS 0.9% 1000 ml Route: IV; Rate: 1 bolus; Site: right antecubital; 01/20 00:19 Follow up: Response: No adverse reaction; IV Status: Completed infusion 01/19 22:35 Drug: Pepcid 20 mg Route: IVP; Site: right antecubital; 01/20 00:19 Follow up: Response: No adverse reaction 01/19 22:37 Drug: Zofran (Ondansetron) 4 mg Route: IVP; Site: right antecubital; 01/20 00:20 Follow up: Response: No adverse reaction 01/19 22:50 Drug: Tylenol 1000 mg Route: PO; 01/20 00:20 Follow up: Response: No adverse reaction; Temperature is decreased 00:17 Drug: Ibuprofen 800 mg Route: PO; 01:32 Follow up: Response: No adverse reaction 01:32 Follow up: Response: No adverse reaction; Temperature is decreased 00:17 Drug: Zofran (Ondansetron) 4 mg Route: IVP; Site: right antecubital; 01:32 Follow up: Response: No adverse reaction; Nausea is decreased 00:58 Drug: Rocephin 1 grams Route: IV; Rate: calculated rate; Site: right antecubital; 01:32 Follow up: Response: No adverse reaction; IV Status: Completed infusion 00:59 Drug: Potassium Effervescent Tablet 50 mEq Route: PO; 01:32 Follow up: Response: No adverse reaction Disposition: 02:39 Co-signature as Attending Physician, Skinny Hernandez MD. pkl Disposition: 01/21/20 00:59 Discharged to Home. Impression: Nausea and vomiting, Pneumonia due to other specified infectious organisms, Coronavirus infection, unspecified. - Condition is Stable. - Discharge Instructions: Dehydration, Adult, Nausea and Vomiting, Adult, Community-Acquired Pneumonia, Adult, COVID-19. - Prescriptions for Levaquin 500 mg Oral Tablet - take 1 tablet by ORAL route once daily for 10 days; 10 tablet. Zofran 4 mg Oral Tablet - take 1 tablet by ORAL route every 12 hours As needed; 20 tablet. - Medication Reconciliation Form, Thank You Letter, Antibiotic Education, Prescription Opioid Use form. - Follow up: Private Physician; When: 1 - 2 days; Reason: Recheck today's complaints. - Problem is new. - Symptoms have improved. Signatures: Dispatcher [employer] EDMS Skinny Hernandez MD MD pkAlvino Pederson PA PA cp Reza Ramírez Corrections: (The following items were deleted from the chart) 01/19 22:41 22:15 BLOOD CULTURE*+BA.LAB.BRZ ordered. [facility] 22:41 22:15 LACTATE+C.LAB.BRZ ordered. [facility] 22:42 22:15 Procalcitonin+C.LAB.BRZ ordered. [facility] 01/20 01:48 00:59 01/21/2020 00:59 Discharged to Home. Impression: Nausea and vomiting; Pneumonia wh due to other specified infectious organisms; Coronavirus infection, unspecified. Condition is Stable. Forms are Medication Reconciliation Form, Thank You Letter, Antibiotic Education, Prescription Opioid Use. Follow up: Private Physician; When: 1 - 2 days; Reason: Recheck today's complaints. Problem is new. Symptoms have improved. cp
--- NOTE | 2020-01-21 08:58 | RAD REPORT ---
EXAM DESCRIPTION: RAD - Chest Single View - 01/20/2020 10:43 pm CLINICAL HISTORY: nausea/vomiting Chest pain. COMPARISON: Chest Pa And Lat (2 Views) dated 03/03/2019; Chest Pa And Lat (2 Views) dated 02/24/2019; Chest Single View dated 06/23/2018; Chest Single View dated 02/26/2018; Abdomen Pelvis W Contrast da ramsey 01/20/2020 FINDINGS: Portable technique limits examination quality. Mild bibasilar lung opacities noted which may represent mild infiltrate or atelectasis. The heart is upper limit of normal in size. No displaced fractures.
--- NOTE | 2020-01-21 10:08 | RAD REPORT ---
EXAM DESCRIPTION: Abdomen Pelvis W Contrast CLINICAL HISTORY: Fever;Nausea / vomiting COMPARISON: None. TECHNIQUE: CT ABDOMEN PELVIS WITH IV CONTRAST on 01/20/2020 10:14 PM CDT This exam was performed according to our departmental dose-optimization program, which includes autom ated exposure control, adjustment of the mA and/or kV according to patient size and/or use of iterati ve reconstruction technique. FINDINGS: There are mild peripheral groundglass opacities in the lower lungs. Abdomen: The liver is normal in appearance. There is no biliary dilatation. Cholecystectomy was perfo rmed. The pancreas and spleen are normal in appearance. The adrenal glands and left kidney are normal . There is a tiny upper pole right renal cyst. Abdominal aorta is normal in course and caliber without aneurysm. There is no free air. There is no r etroperitoneal adenopathy. Pelvis: There is moderate diverticulosis of the distal colon. Urinary bladder is unremarkable. There is no free fluid. Appendix is normal.. Skeleton: There are no acute osseous findings. No suspicious bony lesions. IMPRESSION: No definite acute inflammatory process in the abdomen or pelvis. Possible mild areas of bibasilar pneumonia. Electronically signed by: Stephon Dinero MD 01/21/2020 12:13 AM CDT Due to temporary technical issues with the PACS/Fluency reporting system, reports are being signed by the in house radiologist without review as a courtesy to ensure prompt reporting. The interpreting r adiologist is fully responsible for the content of the report.
[2020-01-22 14:44] VITALS: TEMP 99
[2020-01-22 14:45] VITALS: BP 101/62; O2SAT 95
== END 2020-01-21 01:48 | disposition home or self-care (01) ==
LOC: ER 21:53
DX: J16.8 Pneumonia due to other specified infectious organisms (principal); Z86.19 Personal history of other infectious and parasitic diseases; Z88.5 Allergy status to narcotic agent; Z88.8 Allergy status to other drugs, medicaments and biological substances; Z91.048 Other nonmedicinal substance allergy status
CPT/HCPCS: 96365; 96361; 87040 ×2; 85025; 80048; 36415; 83735; 80076; 83605; 83690; 84145; 87804 ×2; 74177; 71045; 96375; 99284; Q9967; J0696; J7030; J2405; 81003; 81015

== ENCOUNTER 2020-03-20 18:04 | Emergency (ER) | payer BC ==
--- OUTSIDE RECORDS SUMMARY | 2020-03-20 18:07 | XMS REPORT | Continuity of Care Document ---
:1960 Author Organization [facility] t Address [address] [place] [address] Care Team Providers Name Role Phone Tenisha [...] Department ID 2020-01-16 2020-01-17 Emergency Marlen Pond [facility] [id number] 10:51:00 16:50:00 Vincenzo Vivar [id number] [place] [id number] [place] [phone] [id number] 2020-01-14 2020-01-14 Emergency Anais [facility] [id number] 04:47:00 06:47:00 Davis Caldwell [id number] [place] [id number] [place] [phone] [id number] 2019-10-07 2019-10-07 Refill MadhuriBRIGID [id number] 00:00:00 00:00:00 Brit Caldwell [id number] [place] [id number] [phone] [address] 2019-02-04 2019-02-04 Office SamBRIGID andre [id number] 08:19:51 08:42:41 Visit Brit Caldwell [id number] [place] [id number] [facility] [phone] [address] Results This patient has no known results.
[2020-03-20] MEDS ORDERED: FAMOTIDINE 20 MG/2 ML VIAL IV ONE (19:25)
[2020-03-20] MEDS ORDERED: NA CHLORIDE 0.9% 1,000 ML ONE (19:25)
[2020-03-20] MEDS ORDERED: ASPIRIN 81 MG CHEWABLE TABLET ONE (19:25)
--- NOTE | 2020-03-20 19:27 | RAD REPORT ---
EXAM DESCRIPTION: US - Extrem Venous W Compress Apollo - 03/20/2020 7:17 pm CLINICAL HISTORY: PAIN COMPARISON: None. TECHNIQUE: Real-time sonographic evaluation of the bilateral lower extremity common femoral, superfi cial femoral, popliteal and posterior tibial veins was performed. FINDINGS: Normal compressibility, flow augmentation, phasic flow and spontaneous flow are identified in the left and right lower extremity common femoral, superficial femoral, popliteal and posterior t ibial veins. No intraluminal filling defects seen. IMPRESSION: No DVT in either lower extremity.
--- NOTE | 2020-03-20 19:29 | RAD REPORT ---
EXAM DESCRIPTION: RAD - Chest Single View - 03/20/2020 7:20 pm CLINICAL HISTORY: DYSPNEA COMPARISON: Portable January 19 TECHNIQUE: AP portable chest image was obtained 03/20/2020 7:20 pm . FINDINGS: Lungs are clear. Heart and vasculature are normal. No measurable pleural effusion and no p neumothorax. No acute bony abnormality seen. No acute aortic findings suspected. IMPRESSION: No acute cardiopulmonary process. No significant change from comparison.
[2020-03-20 19:52] LABS: Absolute Lymphocytes (CBC) 2.2 K/uL (0.7-4.9); Basophils % 1.3 % (0-1.3); Hematocrit 37.1 % (36.0-45.0); Lymphocytes % 34.3 % (15.3-44.8); MPV 9.2 fL (7.6-11.3); Protime INR 0.93; RBC Red Blood Cell Count 4.29 M/uL (3.86-4.86)
[2020-03-20 20:08] LABS: ALT/SGPT 39 U/L (12-78); AST/SGOT 30 U/L (15-37); Albumin 3.5 g/dL (3.4-5.0); Alkaline Phosphatase 124 U/L (45-117); BUN Blood Urea Nitrogen 19 mg/dL (7-18); Bicarbonate 31 mmol/L (21-32); Bilirubin Direct < 0.1 mg/dL (0-0.2); Bilirubin Total 0.3 mg/dL (0.2-1.0); Glucose Level 101 mg/dL (74-106); Lipase 289 U/L (73-393); Magnesium 2.4 mg/dL (1.8-2.4); NT PRO-BNP 39 pg/mL (<125); Protein, Total 7.1 g/dL (6.4-8.2); Sodium Level 144 mmol/L (136-145); Troponin (Emerg Dept Use Only) < 0.02 ng/mL (0.0-0.045)
--- NOTE | 2020-03-20 20:22 | RAD REPORT ---
EXAM DESCRIPTION: CT - Chest For Pe Angio - 03/20/2020 8:13 pm CLINICAL HISTORY: CHEST PAINpatient reports COVID positive test 5 weeks earlier with recent negativ e re testing COMPARISON: Chest For Pe Angio dated 03/03/2019; Chest Single View dated 03/20/2020 TECHNIQUE: Dynamically enhanced 3 mm thick images of the chest were obtained during administration o f approximately 150mL Isovue 370 IV contrast. Coronal and oblique MIP reconstruction images were gene rated and reviewed. Exam utilizes a protocol to evaluate the pulmonary arterial tree. All CT scans are performed using dose optimization technique as appropriate and may include automated exposure control or mA/KV adjustment according to patient size. FINDINGS: No pulmonary emboli are identified. The aorta as imaged shows no acute or suspicious finding. No pericardial thickening or effusion. No consolidation, mass or acute lung parenchymal process identifiable. Posterior lung field atelectas is present. No pleural effusion or pleural thickening. Nonspecific small hilar lymph nodes are present. No abnormal mediastinal lymphadenopathy. No chest wa ll masses or abnormal axillary lymphadenopathy. Bilateral breast implants are in place. Serpiginous h yperdense lines through the implants likely indicate implant rupture with ruptured fluid contained by the fibrous capsule. This is a stable presentation from 2019. IMPRESSION: No pulmonary emboli identified. No acute or emergent finding identifiable.
[2020-03-20] MEDS ORDERED: predniSONE 20 MG TAB ONE (22:44)
--- NOTE | 2020-03-21 00:25 | ER ---
Nurse's Notes [facility] Name: Marisa Baker Age: 59 yrs Sex: Female : 1960 Arrival Date: 03/20/2020 Time: 18:06 Bed 7 Private MD: Nelson Jacobson B Diagnosis: Chest pain, unspecified Presentation: 03/20 18:07 Chief complaint: Patient states: "I feel like I'm having lung pain, I feel blah. I feel sv like the right side is filling up but the left side isn't filling up." Reports it started about 1400 today. Denies recent injury or fall. Reports she was COVID + 5 weeks ago and has had 1 negative result since. Coronavirus screen: Client denies travel out of the [place] in the last 14 days. At this time, the client does not indicate any symptoms associated with coronavirus-19. Ebola Screen: No symptoms or risks identified at this time. Risk Assessment: Do you want to hurt yourself or someone else? Patient reports no desire to harm self or others. Onset of symptoms was March 20, 2020. 18:07 Method Of Arrival: Ambulatory sv 18:07 Acuity: YESSI 3 sv 18:09 Initial Sepsis Screen: Does the patient meet any 2 criteria? HR > 90 bpm. No. Patient's sv initial sepsis screen is negative. Does the patient have a suspected source of infection? No. Patient's initial sepsis screen is negative. Triage Assessment: 18:07 General: Appears in no apparent distress. uncomfortable, Behavior is calm, cooperative, sv appropriate for age. Pain: Complains of pain in left lateral posterior chest and left lateral anterior chest. Neuro: Level of Consciousness is awake, alert, obeys commands, Oriented to person, place, time, situation, Gait is steady. Respiratory: Airway is patent Respiratory effort is even, unlabored. Historical: - Allergies: 18:09 Adhesives; sv 18:09 Codeine; sv 18:09 diphenhydramine HCl; irritability; sv - PMHx: 18:09 CVA; "small blood clot somewhere"; sv - PSHx: 18:09 Hysterectomy; ; sv - Immunization history:: Flu vaccine is up to date. - Social history:: Smoking status: Patient denies any tobacco usage or history of. Screenin:20 Abuse screen: Denies threats or abuse. Denies injuries from another. Nutritional wh screening: No deficits noted. Tuberculosis screening: No symptoms or risk factors identified. Fall Risk None identified. Assessment: 19:15 Pain: Complains of pain in left low back and chest pain Pain does not radiate. Is wh intermittent. 19:20 General: Appears in no apparent distress. Behavior is calm, cooperative, appropriate wh for age. Neuro: Level of Consciousness is awake, alert, obeys commands, Oriented to person, place, time, situation, Appropriate for age. Cardiovascular: Reports chest pain, Heart tones S1 S2 Rhythm is sinus rhythm. Respiratory: Airway is patent Respiratory effort is even, unlabored, Respiratory pattern is regular, symmetrical, Breath sounds are clear bilaterally. GI: Abdomen is flat, non-distended, Abd is soft and non tender X 4 quads. : No signs and/or symptoms were reported regarding the genitourinary system. EENT: No signs and/or symptoms were reported regarding the EENT system. Derm: Skin is intact, is healthy with good turgor, Skin is pink, warm \\T\\ dry. normal. Musculoskeletal: Circulation, motion, and sensation intact. 20:19 Reassessment: Patient appears in no apparent distress at this time. No changes from wh previously documented assessment. Patient and/or family updated on plan of care and expected duration. Pain level reassessed. Patient is alert, oriented x 3, equal unlabored respirations, skin warm/dry/pink. 20:51 Reassessment: Provider at bedside explaining POC need for repeat Trop at 23:30. wh 21:33 Reassessment: Patient appears in no apparent distress at this time. Patient and/or wh family updated on plan of care and expected duration. Pain level reassessed. Patient is alert, oriented x 3, equal unlabored respirations, skin warm/dry/pink. 22:27 Reassessment: Pt C/O swelling on her fingers, notified Provider with orders made and wh carried out. 23:11 Reassessment: Patient appears in no apparent distress at this time. Patient and/or family updated on plan of care and expected duration. Pain level reassessed. Patient is alert, oriented x 3, equal unlabored respirations, skin warm/dry/pink. 03/21 00:30 Reassessment: Patient appears in no apparent distress at this time. Patient and/or wh family updated on plan of care and expected duration. Pain level reassessed. Patient is alert, oriented x 3, equal unlabored respirations, skin warm/dry/pink. Vital Signs: 03/20 18:09 BP 150 / 89; Pulse 95; Resp 18; Temp 98.2; Pulse Ox 97% ; Weight 73.94 kg; Height 5 ft. sv 2 in. (157.48 cm); 20:20 BP 132 / 89; Pulse 76; Resp 18; Pulse Ox 97% on R/A; wh 21:34 BP 124 / 80; Pulse 71; Resp 18; Pulse Ox 96% on R/A; wh 23:00 BP 128 / 81; Pulse 67; Resp 18; Pulse Ox 95% on R/A; wh 03/21 00:15 BP 126 / 91; Pulse 64; Resp 18; Pulse Ox 96% on R/A; wh 03/20 18:09 Body Mass Index 29.81 (73.94 kg, 157.48 cm) sv ED Course: 03/20 18:06 Patient arrived in ED. mr 18:06 Nelson Jacobson MD is Private Physician. mr 18:07 Arm band placed on. sv 18:08 Triage completed. sv 18:10 Alvino Mckinley MD is Attending Physician. [facility] 19:10 Luis M Melgar NP is [facility]. pm1 19:15 Patient has correct armband on for positive identification. Placed in gown. Bed in low wh position. Call light in reach. Side rails up X 1. drum barker operator on. Pulse ox on. NIBP on. 19:17 US Extremity Venous W Compression Apollo In Process Unspecified. EDMS 19:18 Reza Ramírez is Primary Nurse. wh 19:18 XRAY Chest (1 view) In Process Unspecified. EDMS 19:23 CT Chest For PE Angio In Process Unspecified. EDMS 19:35 Inserted saline lock: 20 gauge in right antecubital area, using aseptic technique. oe Blood collected. 03/21 00:24 Stephen Balderas MD is Referral Physician. pm1 00:41 No provider procedures requiring assistance completed. IV discontinued, intact, wh bleeding controlled, No redness/swelling at site. Administered Medications: 03/20 19:44 Drug: NS 0.9% 1000 ml Route: IV; Rate: 1 bolus; Site: right antecubital; :44 Follow up: Response: No adverse reaction; IV Status: Completed infusion :44 Drug: Pepcid 20 mg Route: IVP; Site: right antecubital; :44 Follow up: Response: No adverse reaction :44 Drug: Aspirin 162 mg Route: PO; 20:44 Follow up: Response: No adverse reaction 22:33 Drug: predniSONE 60 mg Route: PO; 03/21 00:10 Follow up: Response: No adverse reaction 00:21 Drug: GI Cocktail without - (Maalox Suspension 30 ml, Lidocaine Liquid 2 % 15 wh ml) Route: PO; 00:42 Follow up: Response: No adverse reaction Outcome: 00:24 Discharge ordered by MD. pm1 00:41 Discharged to home ambulatory. 00:41 Condition: stable 00:41 Discharge instructions given to patient, Instructed on discharge instructions, follow up and referral plans. POC Demonstrated understanding of instructions, follow-up care, medications, POC :44 Patient left the ED. Signatures: Dispatcher [employer] EDMS Leticia Whyte RN RN sv Anderson, Corey, MD MD cha Rivera, Mary mr Luis M Melgar, MARCO IT DISASTER RECOVERY MANAGER pm1 Jose Antonio Mcdonough Winsy Corrections: (The following items were deleted from the chart) 03/20 18:11 18:07 Chief complaint: Patient states: "I feel like I'm having lung pain, I feel blah. sv I feel like the right side is filling up but the left side isn't filling up." Reports it started about 1400 today. Denies recent injury or fall 18:11 18:09 73.94 kg; Height 5 ft. 2 in.; BMI: 29.8; sv 20:19 19:20 Pain: Complains of pain in chest Pain does not radiate. Is intermittent, [facility] : 19:20 Cardiovascular: Reports chest pain, Heart tones S1 S2 Rhythm is sinus rhythm [facility] 20: 19:20 Cardiovascular: Heart tones S1 S2 Rhythm is sinus rhythm [facility] : 19:15 Pain: Complains of pain in left low back Pain does not radiate. Is intermittent, [facility]
--- NOTE | 2020-03-21 00:26 | EDPHYS ---
Physician Documentation [facility] Name: Marisa Baker Age: 59 yrs Sex: Female : 1960 Arrival Date: 03/20/2020 Time: 18:06 Bed 7 Private MD: Nelson Jacobson B ED Physician Alvino Mckinley HPI: 03/20 18:38 This 59 yrs old Female presents to ER via Ambulatory with complaints of Flank graham Pain. Historical: - Allergies: 18:09 Adhesives; sv 18:09 Codeine; sv 18:09 diphenhydramine HCl; irritability; sv - PMHx: 18:09 CVA; "small blood clot somewhere"; sv - PSHx: 18:09 Hysterectomy; ; sv - Immunization history:: Flu vaccine is up to date. - Social history:: Smoking status: Patient denies any tobacco usage or history of. ROS: 18:38 Constitutional: Negative for fever, chills, and weight loss, Eyes: Negative for injury, graham pain, redness, and discharge, ENT: Negative for injury, pain, and discharge, Neck: Negative for injury, pain, and swelling, Abdomen/GI: Negative for abdominal pain, nausea, vomiting, diarrhea, and constipation, Back: Negative for injury and pain, : Negative for injury, bleeding, discharge, and swelling, MS/Extremity: Negative for injury and deformity, Skin: Negative for injury, rash, and discoloration, Neuro: Negative for headache, weakness, numbness, tingling, and seizure, Psych: Negative for depression, anxiety, suicide ideation, homicidal ideation, and hallucinations, Allergy/Immunology: Negative for hives, rash, and allergies, Endocrine: Negative for neck swelling, polydipsia, polyuria, polyphagia, and marked weight changes, Hematologic/Lymphatic: Negative for swollen nodes, abnormal bleeding, and unusual bruising. 18:38 Constitutional: Positive for chills, malaise. 18:38 Cardiovascular: Positive for chest pain. 18:38 Cardiovascular: Positive for 18:38 Respiratory: Positive for shortness of breath, at rest. Exam: 18:38 Constitutional: This is a well developed, well nourished patient who is awake, alert, graham and in no acute distress. Head/Face: Normocephalic, atraumatic. Eyes: Pupils equal round and reactive to light, extra-ocular motions intact. Lids and lashes normal. Conjunctiva and sclera are non-icteric and not injected. Cornea within normal limits. Periorbital areas with no swelling, redness, or edema. ENT: Nares patent. No nasal discharge, no septal abnormalities noted. Tympanic membranes are normal and external auditory canals are clear. Oropharynx with no redness, swelling, or masses, exudates, or evidence of obstruction, uvula midline. Mucous membranes moist. Neck: Trachea midline, no thyromegaly or masses palpated, and no cervical lymphadenopathy. Supple, full range of motion without nuchal rigidity, or vertebral point tenderness. No Meningismus. Chest/axilla: Normal chest wall appearance and motion. Nontender with no deformity. No lesions are appreciated. Cardiovascular: Regular rate and rhythm with a normal S1 and S2. No gallops, murmurs, or rubs. Normal PMI, no JVD. No pulse deficits. Respiratory: Lungs have equal breath sounds bilaterally, clear to auscultation and percussion. No rales, rhonchi or wheezes noted. No increased work of breathing, no retractions or nasal flaring. Abdomen/GI: Soft, non-tender, with normal bowel sounds. No distension or tympany. No guarding or rebound. No evidence of tenderness throughout. Back: No spinal tenderness. No costovertebral tenderness. Full range of motion. Female : Normal external genitalia. Skin: Warm, dry with normal turgor. Normal color with no rashes, no lesions, and no evidence of cellulitis. MS/ Extremity: Pulses equal, no cyanosis. Neurovascular intact. Full, normal range of motion. Neuro: Awake and alert, GCS 15, oriented to person, place, time, and situation. Cranial nerves II-XII grossly intact. Motor strength 5/5 in all extremities. Sensory grossly intact. Cerebellar exam normal. Normal gait. Psych: Awake, alert, with orientation to person, place and time. Behavior, mood, and affect are within normal limits. 18:38 Musculoskeletal/extremity: ROM: no acute changes, intact in all extremities, full active range of motion, Circulation is intact in all extremities. Sensation intact. Compartment Syndrome exam of affected extremity: is normal. DVT Exam: No signs of deep vein thrombosis. no pain, no swelling, no tenderness, negative Homans' sign noted on exam, no appreciated bluish discoloration, no erythema, no increased warmth. Vital Signs: 18:09 BP 150 / 89; Pulse 95; Resp 18; Temp 98.2; Pulse Ox 97% ; Weight 73.94 kg; Height 5 ft. sv 2 in. (157.48 cm); 20:20 BP 132 / 89; Pulse 76; Resp 18; Pulse Ox 97% on R/A; wh 21:34 BP 124 / 80; Pulse 71; Resp 18; Pulse Ox 96% on R/A; wh 23:00 BP 128 / 81; Pulse 67; Resp 18; Pulse Ox 95% on R/A; wh 03/21 00:15 BP 126 / 91; Pulse 64; Resp 18; Pulse Ox 96% on R/A; wh 03/20 18:09 Body Mass Index 29.81 (73.94 kg, 157.48 cm) sv MDM: 03/20 18:10 Patient medically screened. graham 18:10 Patient medically screened. graham 18:40 Differential diagnosis: CHF exacerbation, abnormal EKG, acute myocardial infarction, graham acute pericarditis, anxiety, coronary artery disease cholecystitis, Cholelithiasis gastritis, hiatal hernia, pancreatitis, pleurisy, pneumonia, pulmonary embolus, unstable angina, pneumonia, Pneumothorax pulmonary edema, Pulmonary Embolism reactive airway disease, Unstable Angina. Antibiotic administration: Not indicated. HEART Score: History: Slightly Suspicious (0), ECG: Normal (0), Age: > 45 and < 65 years (1), Risk Factors: 1 or 2 risk factors (1), [+ Family HX] Troponin: < or = 1 x Normal Limit (0). The patient was given aspirin in the Emergency Department. The patient's Wells Deep Vein Thrombosis Score was calculated as follows: Total Score: 0. This patient was found to be at low risk for a deep vein thrombosis by using the Well's assessment criteria Total Score: 0-2 Pts- Low Risk. The patient's pulmonary embolism risk score was calculated as follows: Total Score: 0-2 points. This patient was found to be at low risk for a pulmonary embolism by using the Well's assessment criteria Total Score: 0-2 points. This patient was found to be at low risk for a pulmonary embolism by using the Well's assessment criteria. MARIA DEL ROSARIO Risk Score: TOTAL SCORE = 0. Immunization status: Influenza vaccine: Data reviewed: vital signs, nurses notes, lab test result(s), EKG, radiologic studies, CT scan, plain films. Data interpreted: ekg monitor: rate is 95 beats/min, rhythm is regular, Pulse oximetry: on room air is 95 %. 03/21 00:07 Counseling: I had a detailed discussion with the patient and/or guardian regarding: the pm1 historical points, exam findings, and any diagnostic results supporting the discharge/admit diagnosis, lab results, radiology results, the need for outpatient follow up, to return to the emergency department if symptoms worsen or persist or if there are any questions or concerns that arise at home. 00:07 ED course: Patient has appointment with Dr Rowan tomorrow. Advised to keep her pm1 appointment. 00:07 ED course: Onset of symptoms at 1400. Initial troponin negative and greater than 4 pm1 hours after onset and second troponin negative. Atypical chest pain presentation and patient has appointment with cardiology tomorrow. 03/20 18:37 Order name: Basic Metabolic Panel; Complete Time: 20:17 [facility] 03/20 18:37 Order name: CBC with Diff; Complete Time: 20:05 [facility] 03/20 18:37 Order name: LFT's; Complete Time: 20:17 [facility] 03/20 18:37 Order name: Magnesium; Complete Time: 20:17 [facility] 03/20 18:37 Order name: NT PRO-BNP; Complete Time: 20:17 [facility] 03/20 18:37 Order name: PT-INR; Complete Time: 20:05 [facility] 03/20 18:37 Order name: Troponin (emerg Dept Use Only); Complete Time: 20:17 [facility] 03/20 18:37 Order name: XRAY Chest (1 view); Complete Time: 19:39 [facility] 03/20 18:37 Order name: Lipase; Complete Time: 20:17 [facility] 03/20 18:37 Order name: Blood Culture Adult (2) [facility] 03/20 18:37 Order name: US Extremity Venous W Compression Apollo; Complete Time: 19:31 [facility] 03/20 18:37 Order name: CT Chest For PE Angio; Complete Time: 20:26 [facility] 03/20 18:37 Order name: Lactate; Complete Time: 20:05 [facility] 03/20 20:51 Order name: Troponin (emerg Dept Use Only): Repeat at 2335; Complete Time: 00:07 pm1 03/20 18:37 Order name: EKG; Complete Time: 18:38 [facility] 03/20 18:37 Order name: Cardiac monitoring; Complete Time: 19:44 [facility] 03/20 18:37 Order name: EKG - Nurse/Tech; Complete Time: 19:44 [facility] 03/20 18:37 Order name: IV Saline Lock; Complete Time: 19:44 [facility] 03/20 18:37 Order name: Labs collected and sent; Complete Time: 19:44 [facility] 03/20 18:37 Order name: O2 Per Protocol; Complete Time: 19:44 [facility] 03/20 18:37 Order name: O2 Sat Monitoring; Complete Time: 19:44 [facility] Administered Medications: 03/20 19:44 Drug: NS 0.9% 1000 ml Route: IV; Rate: 1 bolus; Site: right antecubital; 20:44 Follow up: Response: No adverse reaction; IV Status: Completed infusion 19:44 Drug: Pepcid 20 mg Route: IVP; Site: right antecubital; 20:44 Follow up: Response: No adverse reaction 19:44 Drug: Aspirin 162 mg Route: PO; 20:44 Follow up: Response: No adverse reaction 22:33 Drug: predniSONE 60 mg Route: PO; 03/21 00:10 Follow up: Response: No adverse reaction 00:21 Drug: GI Cocktail without - (Maalox Suspension 30 ml, Lidocaine Liquid 2 % 15 wh ml) Route: PO; 00:42 Follow up: Response: No adverse reaction Disposition: 06:23 Co-signature as Attending Physician, Alvino Mckinley MD I agree with the assessment and [facility] plan of care. Disposition: 03/21/20 00:24 Discharged to Home. Impression: Chest pain, unspecified. - Condition is Stable. - Discharge Instructions: Nonspecific Chest Pain. - Medication Reconciliation Form, Thank You Letter, Antibiotic Education, Prescription Opioid Use form. - Follow up: Emergency Department; When: As needed; Reason: Worsening of condition. Follow up: Stephen Balderas MD; When: Tomorrow; Reason: Recheck today's complaints, Continuance of care, Re-evaluation by your physician. - Problem is new. - Symptoms have improved. Signatures: Dispatcher [employer] EDLeticia Harkins RN RN Alvino Murrell MD MD cha Marinas, Patrick, WAX BALL KNOCK OUT WORKER WAX BALL KNOCK OUT WORKER pm1 Reza Ramírez Corrections: (The following items were deleted from the chart) 00:44 00:24 03/21/2020 00:24 Discharged to Home. Impression: Chest pain, unspecified. Condition is Stable. Forms are Medication Reconciliation Form, Thank You Letter, Antibiotic Education, Prescription Opioid Use. Follow up: Emergency Department; When: As needed; Reason: Worsening of condition. Follow up: Stephen Balderas; When: Tomorrow; Reason: Recheck today's complaints, Continuance of care, Re-evaluation by your physician. Problem is new. Symptoms have improved. pm1
[2020-03-21] MEDS ORDERED: LIDOCAINE VISCOUS 2% SOLN 15 ML UDC ONE (00:31)
[2020-03-21] MEDS ORDERED: MAGNES/ALUMIN/SIMET 30ML UCUP ONE (00:31)
[2020-03-21 00:55] VITALS: TEMP 98.2
[2020-03-21 01:05] VITALS: BP 126/91; O2SAT 96
--- NOTE | 2020-03-22 07:18 | EKG ---
Test Date: 2020-03-20 Test Time: 19:38:29 Band Sawmill Operator: MEASUREMENT RESULTS: Intervals: Rate: 75 OK: 118 QRSD: 92 QT: 406 QTc: 453 Lyons: P: 37 OK: 118 QRS: 33 T: 49 INTERPRETIVE STATEMENTS: Normal sinus rhythm Normal ECG Compared to ECG 03/03/2019 19:36:48 Sinus bradycardia no longer present Electronically Signed On 03-22-20 07:16:20 CHIP DRIER by Stephen Balderas
== END 2020-03-21 00:44 | disposition home or self-care (01) ==
LOC: ER 18:04
DX: R07.9 Chest pain, unspecified (principal); Z86.73 Personal history of transient ischemic attack (TIA), and cerebral infarction without residual deficits; Z88.5 Allergy status to narcotic agent; Z88.8 Allergy status to other drugs, medicaments and biological substances; Z91.048 Other nonmedicinal substance allergy status
CPT/HCPCS: 93005; 87040 ×2; 85025; 80048; 36415; 83735; 85610; 82565; 80076; 83605; 84484 ×2; 83690; 83880; 71275; 71045; 93970; Q9967; J7030; 96361; 96374; 99284; J7512

== ENCOUNTER 2020-07-26 23:49 | Emergency (ER) | payer BC ==
--- OUTSIDE RECORDS SUMMARY | 2020-07-26 23:51 | XMS REPORT | Continuity of Care Document ---
:1960 Author Organization [facility] t Address [address] [place] [address] Care Team Providers Name Role Phone Jaye Chaney MD Attending Clinician Problems This patient has no known problems. Allergies, Adverse Reactions, Alerts This patient has no known allergies or adverse reactions. Medications This patient has no known medications. Procedures This patient has no known procedures. Encounters Start End Encounter Admission Attending Care Care Encounter Source Date/Time Date/Time Type Type Clinicians Facility Department ID 2020-07-24 2020-07-24 [facility] [id number] 14:13:03 23:59:00 Encounter [facility] [id number] Surgical [id number] Specialti [id number] es 809 Javi 2020-07-24 2020-07-24 Office [facility] [id number] 14:11:03 14:52:35 Visit [facility] [id number] Surgical [id number] Specialti [id number] es [id number] Javi Results This patient has no known results.
[2020-07-27] MEDS ORDERED: HYDROCODONE/APAP 7.5/325 MG TAB ONE (00:27)
--- NOTE | 2020-07-27 00:57 | EDPHYS ---
Physician Documentation [facility] Name: Marisa Baker Age: 59 yrs Sex: Female : 1960 Arrival Date: 07/26/2020 Time: 23:53 Bed 23 Private MD: ED Physician Patrick Keating HPI: 07/27 00:07 This 59 yrs old Female presents to ER via Ambulatory with complaints of Fall kb Injury. 00:07 Details of fall: The patient fell from a height, from a ladder, approximately 5 feet. kb Onset: The symptoms/episode began/occurred 1.5 hour(s) ago. Associated injuries: The patient sustained neck injury, pain, posterior aspect of right shoulder, decreased range of motion, painful injury. Severity of symptoms: At their worst the symptoms were moderate, in the emergency department the symptoms are unchanged. The patient has not experienced similar symptoms in the past. The patient has not recently seen a physician. Pt states she fell approx 5 feet off of a ladder. Reports she hit her right shoulder and head. c/o right shoulder pain and neck pain. Historical: - Allergies: 00:08 Adhesives; em 00:08 Codeine; em 00:08 diphenhydramine HCl; irritability; em - PMHx: 00:08 "small blood clot somewhere"; CVA; em - PSHx: 00:08 ; Hysterectomy; em - Immunization history:: Adult Immunizations up to date. - Social history:: Smoking status: Patient denies any tobacco usage or history of. ROS: 00:07 Constitutional: Negative for fever, chills, and weight loss, Cardiovascular: Negative kb for chest pain, palpitations, and edema, Respiratory: Negative for shortness of breath, cough, wheezing, and pleuritic chest pain, Abdomen/GI: Negative for abdominal pain, nausea, vomiting, diarrhea, and constipation, Skin: Negative for injury, rash, and discoloration, Neuro: Negative for headache, weakness, numbness, tingling, and seizure. 00:07 Neck: Positive for pain with movement, pain at rest. 00:07 MS/extremity: Positive for decreased range of motion, pain, tenderness, of the posterior aspect of right shoulder. Exam: 00:05 Constitutional: This is a well developed, well nourished patient who is awake, alert, kb and in no acute distress. Head/Face: Normocephalic, atraumatic. Chest/axilla: Normal chest wall appearance and motion. Cardiovascular: Regular rate and rhythm with a normal S1 and S2. No gallops, murmurs, or rubs. No pulse deficits. Respiratory: Lungs have equal breath sounds bilaterally, clear to auscultation. No rales, rhonchi or wheezes noted. No increased work of breathing, no retractions or nasal flaring. Abdomen/GI: Soft, non-tender, with normal bowel sounds. No distension. No guarding or rebound. No evidence of tenderness throughout. Neuro: Awake and alert, GCS 15, oriented to person, place, time, and situation. Cranial nerves II-XII grossly intact. Moves all extremities. Sensory grossly intact. Cerebellar exam normal. Normal gait. 00:05 Musculoskeletal/extremity: Extremities: grossly normal except: noted in the posterior aspect of right shoulder: decreased ROM, pain, tenderness, ROM: limited active range of motion, in the posterior aspect of right shoulder, Circulation is intact in all extremities. Sensation intact. Weight bearing: able to fully bear weight. 00:05 Skin: injury, abrasion(s), very small abrasion noted, of the right leg. 00:07 Neck: External neck: tenderness, that is mild, of the right posterior aspect of neck, kb C-spine: appears grossly normal. Vital Signs: 00:07 BP 148 / 87; Pulse 77; Resp 18; Temp 97.9; Pulse Ox 100% on R/A; Weight 72.57 kg; em Height 5 ft. 3 in. (160.02 cm); Pain 02/25; 00:07 Body Mass Index 28.34 (72.57 kg, 160.02 cm) em MDM: 07/26 23:57 Patient medically screened. kb 07/27 00:05 Data reviewed: vital signs, nurses notes. Data interpreted: Pulse oximetry: on room air kb is 100 %. Interpretation: normal. 00:32 Transition of care: After a detail discussion of the patient's case, care is kb transferred to Patrick Keating MD. 07/27 00:05 Order name: CT Head C Spine kb 07/27 00:05 Order name: Shoulder Right (2 View) XRAY kb Administered Medications: 00:12 Drug: [place] (7.5 mg-325 mg) 1 tabs Route: PO; em 01:00 Follow up: Response: No adverse reaction; Pain is decreased em 01:15 Drug: TORadol 30 mg Route: IM; Site: left deltoid; em 01:18 Follow up: Response: Medication administered at discharge. em Disposition: 04:53 Co-signature as Attending Physician, Patrick Keating MD I agree with the assessment and tw4 plan of care. Disposition: 07/27/20 00:56 Discharged to Home. Impression: Concussion without loss of consciousness, Contusion of unspecified part of head, Contusion of left shoulder. - Condition is Stable. - Discharge Instructions: Contusion, Post-Concussion Syndrome, Head Injury, Adult, [id number]. - Prescriptions for Ibuprofen 800 mg Oral Tablet - take 1 tablet by ORAL route every 12 hours As needed take with food; 20 tablet. - Medication Reconciliation Form, Thank You Letter, Antibiotic Education, Prescription Opioid Use form. - Follow up: Private Physician; When: Upon discharge from the Emergency Department; Reason: Recheck today's complaints, Continuance of care, Re-evaluation by your physician. - Problem is new. - Symptoms have improved. Signatures: Dispatcher [employer] EDLizz Hernandez, [employer]IVE ASSISTANT-Luis E Hernandez RN RN Patrick Keating MD MD tw4 Jodie, Ramone tt3 Corrections: (The following items were deleted from the chart) 00:07 00:05 Constitutional: This is a well developed, well nourished patient who is awake, kb alert, and in no acute distress. Head/Face: Normocephalic, atraumatic. Chest/axilla: Normal chest wall appearance and motion. Cardiovascular: Regular rate and rhythm with a normal S1 and S2. No gallops, murmurs, or rubs. No pulse deficits. Respiratory: Lungs have equal breath sounds bilaterally, clear to auscultation. No rales, rhonchi or wheezes noted. No increased work of breathing, no retractions or nasal flaring. Abdomen/GI: Soft, non-tender, with normal bowel sounds. No distension. No guarding or rebound. No evidence of tenderness throughout. Neuro: Awake and alert, GCS 15, oriented to person, place, time, and situation. Cranial nerves II-XII grossly intact. Moves all extremities. Sensory grossly intact. Cerebellar exam normal. Normal gait. kb 01:19 00:56 07/27/2020 00:56 Discharged to Home. Impression: Concussion without loss of tt3 consciousness; Contusion of unspecified part of head; Contusion of left shoulder. Condition is Stable. Forms are Medication Reconciliation Form, Thank You Letter, Antibiotic Education, Prescription Opioid Use. Follow up: Private Physician; When: Upon discharge from the Emergency Department; Reason: Recheck today's complaints, Continuance of care, Re-evaluation by your physician. Problem is new. Symptoms have improved. tw4 01:37 01:19 07/27/2020 00:56 Discharged to Home. Impression: Concussion without loss of em consciousness; Contusion of unspecified part of head; Contusion of left shoulder. Condition is Stable. Discharge Instructions: Contusion, Post-Concussion Syndrome, Head Injury, Adult, [id number]. Prescriptions for Ibuprofen 800 mg Oral Tablet - take 1 tablet by ORAL route every 12 hours As needed take with food; 20 tablet. and Forms are Medication Reconciliation Form, Thank You Letter, Antibiotic Education, Prescription Opioid Use. Follow up: Private Physician; When: Upon discharge from the Emergency Department; Reason: Recheck today's complaints, Continuance of care, Re-evaluation by your physician. Problem is new. Symptoms have improved. tt3
--- NOTE | 2020-07-27 00:57 | ER ---
Nurse's Notes [facility] Name: Marisa Baker Age: 59 yrs Sex: Female : 1960 Arrival Date: 07/26/2020 Time: 23:53 Bed 23 Private MD: Diagnosis: Concussion without loss of consciousness;Contusion of unspecified part of head;Contusion of left shoulder Presentation: 07/27 00:06 Chief complaint: Patient states: fell from a ladder about 5 feet up, reports right em shoulder/neck pain, denies LOC. Care prior to arrival: None. Mechanism of Injury: Fall approximately 5 feet. Trauma event details: Injury occurred in the [facility]. 00:06 Acuity: YESSI 4 em 00:06 Method Of Arrival: Ambulatory em 00:07 Coronavirus screen: Client denies travel out of the [place] in the last 14 days. Ebola em Screen: Patient negative for fever greater than or equal to 101.5 degrees Fahrenheit, and additional compatible Ebola Virus Disease symptoms Patient denies exposure to infectious person. Patient denies travel to an Ebola-affected area in the 21 days before illness onset. No symptoms or risks identified at this time. Initial Sepsis Screen: Does the patient meet any 2 criteria? No. Patient's initial sepsis screen is negative. Does the patient have a suspected source of infection? No. Patient's initial sepsis screen is negative. Risk Assessment: Do you want to hurt yourself or someone else? Patient reports no desire to harm self or others. Onset of symptoms was July 27, 2020. Historical: - Allergies: 00:08 Adhesives; em 00:08 Codeine; em 00:08 diphenhydramine HCl; irritability; em - PMHx: 00:08 "small blood clot somewhere"; CVA; em - PSHx: 00:08 ; Hysterectomy; em - Immunization history:: Adult Immunizations up to date. - Social history:: Smoking status: Patient denies any tobacco usage or history of. Screenin:05 Abuse screen: Denies threats or abuse. Nutritional screening: No deficits noted. em Tuberculosis screening: No symptoms or risk factors identified. Fall Risk None identified. Assessment: 00:07 General: Appears in no apparent distress. uncomfortable, Behavior is calm, cooperative, em appropriate for age. Pain: Complains of pain in right posterior aspect of neck and posterior aspect of right shoulder and right leg Pain currently is 10 out of 10 on a pain scale. Neuro: Level of Consciousness is awake, alert, obeys commands, Oriented to person, place, time, situation. Cardiovascular: Capillary refill < 3 seconds Patient's skin is warm and dry. Respiratory: Airway is patent Respiratory effort is even, unlabored, Respiratory pattern is regular, symmetrical. Derm: Skin is intact, is healthy with good turgor, Skin is pink, warm \\T\\ dry. Musculoskeletal: Circulation, motion, and sensation intact. Capillary refill < 3 seconds, Range of motion: limited in right shoulder. 01:05 Reassessment: reports pain is 8/10, would like to have something else for pain, em provider notified. Vital Signs: 00:07 BP 148 / 87; Pulse 77; Resp 18; Temp 97.9; Pulse Ox 100% on R/A; Weight 72.57 kg; em Height 5 ft. 3 in. (160.02 cm); Pain 1010; 00:07 Body Mass Index 28.34 (72.57 kg, 160.02 cm) em ED Course: 07/26 23:53 Patient arrived in ED. am4 23:57 Lizz Walsh FNP-C is PHCP. kb 23:57 aPtrick Keating MD is Attending Physician. kb 07/27 00:01 Luis E Wayne, AMY is Primary Nurse. em 00:07 Triage completed. em 00:08 Arm band placed on. em 00:08 Patient has correct armband on for positive identification. Bed in low position. Call em light in reach. Pulse ox on. NIBP on. 00:24 Shoulder Right (2 View) XRAY In Process Unspecified. EDMS 00:36 CT Head C Spine In Process Unspecified. EDMS 01:10 Shoulder immobilizer applied on right shoulder. em 01:18 No provider procedures requiring assistance completed. Patient did not have IV access em during this emergency room visit. 01:35 Primary Nurse role handed off by Luis E Wayne, RN em 01:35 PHCP role handed off by Lizz Walsh FNP-C em Administered Medications: 00:12 Drug: [place] (7.5 mg-325 mg) 1 tabs Route: PO; em 01:00 Follow up: Response: No adverse reaction; Pain is decreased em 01:15 Drug: TORadol 30 mg Route: IM; Site: left deltoid; em 01:18 Follow up: Response: Medication administered at discharge. em Outcome: 00:56 Discharge ordered by . tw4 01:19 Patient left the ED. tt3 01:19 Discharged to home ambulatory, with family. em 01:19 Condition: stable 01:19 Discharge instructions given to patient, Instructed on discharge instructions, follow up and referral plans. medication usage, Demonstrated understanding of instructions, follow-up care, medications, Prescriptions given X 1. 01:37 Patient left the ED. em Signatures: Dispatcher [employer] EDLizz Hernandez, ALEJANDRO-C NURSING MANAGER-Luis E Hernandez, RN RN Patrick Peralta MD MD tw4 Ramone Feliciano3 Alexsandra Aguilar
[2020-07-27] MEDS ORDERED: KETOROLAC 30 MG/ML INJ ONE (01:30)
[2020-07-27 03:30] VITALS: TEMP 97.9
[2020-07-27 03:57] VITALS: BP 105/70; O2SAT 98
--- NOTE | 2020-07-27 08:22 | RAD REPORT ---
EXAM DESCRIPTION: Shoulder Right 2 View - 07/27/2020 12:24 am CLINICAL HISTORY: PAIN COMPARISON: No comparisons TECHNIQUE: Internal and external rotation views of the right shoulder were obtained. FINDINGS: There is no fracture or dislocation. Prior surgical posttraumatic deformity of the head o f the clavicle. This widens the AC joint. No superior or inferior displacement of the lateral clavicl e relative to the acromion. Acromial humeral joint space is normal. No abnormal soft tissue calcifica tions. IMPRESSION: Negative two view right shoulder examination for acute finding.
--- NOTE | 2020-07-27 10:48 | RAD REPORT ---
EXAM DESCRIPTION: CT - [id number] - 07/27/2020 6:52 am CLINICAL HISTORY: The patient is 59 years old and is Female; PAIN TECHNIQUE: Axial computed tomography images of the head/brain and cervical spine without intravenous contrast. Sagittal and coronal reformatted images were created and reviewed. This CT exam was pe rformed using one or more of the following dose reduction techniques: automated exposure control, a djustment of the mA and/or kV according to patient size, and/or use of iterative reconstruction techn ique. COMPARISON: No relevant prior studies available. FINDINGS: Brain: Unremarkable. No hemorrhage. No significant white matter disease. No edema. Ventricles: Unremarkable. No ventriculomegaly. Skull: No acute fracture. Sinuses: Unremarkable as visualized. No acute sinusitis. Mastoid air cells: Unremarkable as visualized. No mastoid effusion. Vertebrae: There is reversal the normal cervical lordosis. Discs/spinal canal/neural foramina: There is disc space narrowing with degenerative endplate graham nges at C5 to C6. Soft tissues: Unremarkable. IMPRESSION: No acute intracranial abnormality. No acute cervical spine fracture. Electronically signed by: Chacho Mendez MD 07/27/2020 12:48 AM CLINICAL SPECIALIST Due to temporary technical issues with the PACS/Fluency reporting system, reports are being signed by the in house radiologist without review as a courtesy to ensure prompt reporting. The interpreting r adiologist is fully responsible for the content of the report.
== END 2020-07-27 01:37 | disposition home or self-care (01) ==
LOC: ER 23:49
DX: S06.0X0A Concussion without loss of consciousness, initial encounter (principal); S40.011A Contusion of right shoulder, initial encounter; S00.83XA Contusion of other part of head, initial encounter; W11.XXXA Fall on and from ladder, initial encounter; Y93.9 Activity, unspecified; Y92.9 Unspecified place or not applicable; Z86.73 Personal history of transient ischemic attack (TIA), and cerebral infarction without residual deficits; Z88.5 Allergy status to narcotic agent; Z88.8 Allergy status to other drugs, medicaments and biological substances; Z91.048 Other nonmedicinal substance allergy status
CPT/HCPCS: 70450; 72125; 96372; 99284

== ENCOUNTER 2021-09-25 23:15 | Observation (INO) | payer BC ==
--- OUTSIDE RECORDS SUMMARY | 2021-09-25 23:20 | XMS REPORT | Continuity of Care Document ---
:1960 Author Organization [facility] t Address [address] [place] [address] Care Team Providers Name Role Phone Deidre Jacobson MD Primary Care Physician ANDRES LEBRON Attending Clinician Unavailable Dirk Lebron MD Attending Clinician Gilda Diaz Attending Clinician Andres Lebron MD Attending Clinician Mirza Reynoso MD Attending Clinician Oma Pardo MD Attending Clinician Jaye Yen MD Attending Clinician Jaye YEN Attending Clinician Unavailable FARZAD Attending Clinician Unavailable Salty LARA, Tenisha Attending Clinician Cb CUENCA Attending Clinician Rolando Manzo MD Attending Clinician Farzad LIN Attending Clinician ANDRES LEBRON Admitting Clinician Unavailable Cb CUENCA Admitting Clinician Payers Payer Name Policy Type Policy Number Effective Date Expiration Date S [facility] - [id number] 2017 00:00:00 OUT OF STATE Problems Condition Condition Condition Status Onset Resolution Last Treating Co mments Source Name Details Category Date Date Treatment Clinician Date Rotator Rotator Disease Active [facility] cuff tear cuff tear 09-21 Cristiano ege 00:00: of 00 Medicin e Rotator Rotator Disease Active NPI:118 cuff tear cuff tear 09-21 [id number] 00:00: 00 Biceps Biceps Disease Active NPI:118 tendonitis tendonitis 09-21 46 [id number] 00:00: 00 History of History of Disease Active N PI:118 failed failed 09-21 [id number] repair of repair of 00:00: rotator rotator 00 cuff cuff Lower Lower Disease Active [facility] respirator respirator 8-30 Co llege y tract y tract 00:00: of infection infection 00 Medi ruby due to due to e COVID-19 COVID-19 virus virus Lower Lower Disease Active NPI:183 respirator respirator 8-30 [id number] y tract y tract 00:00: infection infection 00 due to due to COVID-19 COVID-19 virus virus Obesity Obesity Disease Active [facility] (BMI (BMI 6-19 College 30-39.9) 30-39.9) 00:00: of 00 Medicin e Cellulitis Cellulitis Disease Active [facility] 6-07 [facility] 00:00: of 00 Medicin e Ex-smoker Ex-smoker Disease Active 2015-05 NPI :118 1-09 [id number] 00:00: 00 Right Right Disease Active 2015-05 NPI:118 sided sided 1-08 [id number] weakness weakness 00:00: 00 Headache Headache Disease Active 2015-05 NPI:1 18 1-08 [id number] 00:00: 00 Restless Restless Disease Active 2015-05 NPI:1 18 leg leg 1-08 [id number] syndrome syndrome 00:00: 00 Hyperlipid Hyperlipid Disease Active 2015-05 N PI:118 emia emia 108 [id number] 00:00: 00 Aphasia Aphasia Disease Active 2015-05 NPI:118 1-08 [id number] 00:00: 00 TIA TIA Disease Active 2015-05 NPI:118 (transient (transient 05-25 46 [id number] ischemic ischemic 00:00: attack) attack) 00 H/O: H/O: Disease Active Overview: [facility] hysterecto hysterecto 10-08 [facility] my my 00:00: g of this of note Medicin might be e different from the original. Completed for heavy bleeding. Partial hyst. Encounter Encounter Disease Active Overview: [facility] for for 10-08 [facility] routine routine 00:00: g of this of gynecologi gynecologi 00 note Me dicin baljinder baljinder might be e examinatio examinatio different n n from the original. 3- negative colorecta l cards.Lexx mogram Impressio n: BI-RAD: 2, benign. No mammograp hic evidence for malignanc y. Annual mammograp hy is the recommend ation for the patient. ICD10 Diagnosis Term Director Print Utility Elevated Elevated Disease Active Overview: [facility]lor blood blood 10-08 [facility] pressure pressure 00:00: g of this of reading reading 00 note Medicin without without might be e diagnosis diagnosis different of of from the hypertensi hypertensi original. on on Referral given to local ER Dysplasia Dysplasia Disease Active Overview: [facility] of cervix of cervix 10-08 [facility] ollege 00:00: g of this of note Medicin might be e different from the original. Hx of cone biopsy and cryothera py.ICD10 Diagnosis Term Director Print Utility BV BV Disease Active [facility] (bacterial (bacterial 10-08 [facility] llege vaginosis) vaginosis) 00:00: of 00 Medicin e Asthma Asthma Disease Active Overview: [facility] 10-08 [facility] 00:00: g of this of note Medicin might be e different from the original. ICD10 Diagnosis Term Director Print Utility No known No known Disease [facility] problems problems of Medicin e Allergies, Adverse Reactions, Alerts Allergy Allergy Status Severity Reaction(s) Onset Inactive Treating Comm ents Source Name Type Date Date Clinician ADHESIVE DRUG Active Other-Cmnt NPI: 183 TAPE-LOREN 01-13 [id number] ICONES 00:00: 00 DIPHENHY DRUG Active Other-Cmnt NPI: 183 DRAMINE INGREDI 01-13 [id number] HCL 00:00: 00 CODEINE DRUG Active ITCHING NPI:183 INGREDI 01-13 [id number] 00:00: 00 Adhesive Propensi Active Other - See N PI:183 Tape-Loren ty to comments 01-13 [id number] 1 icones adverse 00:00: reaction 00 s Diphenhy Propensi Active Other - See "makes m e NPI:183 dramine ty to comments 01-13 climb the 1318 781 Hcl adverse 00:00: redman" reaction 00 s Codeine Propensi Active Itching NPI:18 3 ty to 01-13 [id number] adverse 00:00: reaction 00 s Codeine Propensi Active Itching [facility] ty to 01-13 [place] adverse 00:00: of reaction 00 Medicin s to e drug Diphenhy Propensi Active Other (See "makes me [facility] dramine ty to Comments) 01-13 climb the [facility] Hcl adverse 00:00: redman" of reaction 00 Medicin s to e drug Adhesive Drug Active Other (See blister NPI :118 Tape-Loren Allergy Comments) 01-13 [id number] icones 00:00: 00 Codeine Drug Active Itching NPI:118 Allergy 01-13 [id number] 00:00: 00 Diphenhy Drug Active Other (See "makes me N PI:118 dramine Allergy Comments) 01-13 climb the 46 48699 Hcl 00:00: redman""ma 00 kes me climb the redman" ADHESIVE Allergy Active High Other NPI:118 TAPE-LOREN 01-13 [id number] ICONES 00:00: 00 DIPHENHY Allergy Active High Other NPI:118 DRAMINE 01-13 [id number] HCL 00:00: 00 CODEINE Allergy Active Med Itching NPI:118 01-13 [id number] 00:00: 00 Adhesive Propensi Active Swelling 1979-05 [facility] ty to [facility] adverse 00:00: of reaction 00 Medicin s to e substanc e Adhesive Drug Active Hives, 1979-05 [place] w NPI:118 Allergy Itching, paper [id number] Swelling, 00:00: tapes Rash, Other 00 (See Comments) ADHESIVE Allergy Active High Hives 1979-05 NPI:118 [id number] 00:00: 00 NO KNOWN Drug Active NPI:183 ALLERGIE Class [id number] S Family History Family Member Diagnosis Comments Start Date Stop Date Source Natural brother Migraines NPI:[id number] [id number] Maternal grandmother Stroke Natural sister Seizures NPI:[id number] 4698 Social History Social Habit Start Date Stop Date Quantity Comments Source History SDOH NPI:[id number] Alcohol Frequency History SDOH NPI:[id number] Alcohol Std Drinks History SDOH NPI:[id number] 47 Alcohol Binge Exposure to Not sure [facility] Colle e SARS-CoV-2 (event) of Med icine Alcohol intake 2020-09-22 2020-09-22 Ex-drinker NPI:[id number] 00:00:00 00:00:00 (finding) Tobacco use and 2020-09-13 2020-09-13 Never used NPI:[id number] exposure 00:00:00 00:00:00 Tobacco Comment 2020-09-13 2020-09-13 Quit at age 48 NPI:1 [id number] 00:00:00 00:00:00 Alcohol Comment 2016-03-25 2016-03-25 2 can of beer NPI:11 [id number] 00:00:00 00:00:00 every 6 months History of tobacco 2010-08-08 Cigarette Smoker use 00:00:00 Sex [birth year] NPI:[id number] 00:00:00 00:00:00 Smoking Status Start Date Stop Date Source Never smoker [facility] Former smoker 2020-07-24 00:00:00 2020-07-24 00:00:00 NPI:1831 [id number] Medications Ordered Filled Start Stop Current Ordering Indication Dosage Frequency Signature Comments Components Source Medication Medication Date Date Medication? Clinician (SIG) Name Name famotidine Yes 40mg Take 40 mg [facility] (PEPCID) 40 6-30 by mouth. [facility] MG tablet 14:36: of 49 Medicin e clopidogrel Yes 75mg Take 75 mg Don (PLAVIX) 75 6-30 by mouth. [facility] MG Tablet 14:36: of 49 Medicin e clopidogrel Yes 75mg Take 75 mg Don (PLAVIX) 75 5-12 by mouth. [facility] MG Tablet 10:58: of 00 Medicin e famotidine 0 Yes 40mg Take 40 mg [facility] (PEPCID) 40 5-12 by mouth. [facility] MG tablet 10:58: of 00 Medicin e hydrocodone 2020-0 Yes 1{tbl} Take 1 [facility] -acetaminop 5-12 Tablet by [facility] hen (NORCO) 00:00: mouth of 7.5-325 MG 00 every 4 Medici n per tablet hours as e needed for Pain. hydrocodone 2020-0 Yes 1{tbl} Take 1 [facility] -acetaminop 5-12 Tablet by [facility] hen (NORCO) 00:00: mouth of 7.5-325 MG 00 every 4 Medici n per tablet hours as e needed for Pain. meloxicam 2020-0 Yes [id number] 7.5mg Take 1 [facility] (MOBIC) 7.5 5-11 Tablet by [facility] MG tablet 00:00: mouth of 00 daily. Medicin e meloxicam 2020-0 Yes [id number] 7.5mg Take 1 Don (MOBIC) 7.5 5-11 Tablet by [facility] MG tablet 00:00: mouth of 00 daily. Medicin e ibuprofen 2020-0 Yes 200mg Take 200 NPI :118 (ADVIL,MOTR 5-06 mg by [id number] IN) 200 MG 15:00: mouth tablet 36 every 8 (eight) hours as needed . DULoxetine 2020-0 Yes 20mg QD Take 20 mg N PI:118 (CYMBALTA) 5-06 by mouth [id number] 20 MG 15:00: daily. capsule 36 ibuprofen 2020-0 Yes 200mg Take 200 NPI :118 (ADVIL,MOTR 5-06 mg by [id number] IN) 200 MG 15:00: mouth tablet 36 every 8 (eight) hours as needed . DULoxetine 202-0 Yes 20mg QD Take 20 mg N PI:118 (CYMBALTA) 5-06 by mouth [id number] 47 20 MG 15:00: daily. capsule 36 hydrocodone 2020-0 Yes 1{tbl} Take 1 [facility] -acetaminop 5-06 Tablet by [facility] hen (NORCO) 00:00: mouth of 10-325 MG 00 every 4 Medicin per tablet hours as e needed for Pain. hydrocodone 0 Yes 1{tbl} Take 1 [facility] -acetaminop 5-06 Tablet by [facility] hen (NORCO) 00:00: mouth of 10-325 MG 00 every 4 Medicin per tablet hours as e needed for Pain. cyclobenzap 0 Yes 5mg Take 1 [facility] rine 5-04 Tablet by [place] (FLEXERIL) 00:00: mouth 3 of 5 MG tablet 00 times Medicin daily as e needed. ondansetron 0 Yes 4mg Take 1 [facility] (ZOFRAN) 4 5-04 Tablet by Cristiano ege MG tablet 00:00: mouth of 00 every 6 Medicin hours as e needed for Nausea. duloxetine Yes TAKE 1 [facility] (CYMBALTA) 5-04 CAPSULE BY [facility] 30 MG 00:00: MOUTH ONCE of capsule 00 DAILY Medicin e cyclobenzap 0 Yes 5mg Take 1 [facility] rine 5-04 Tablet by [place] (FLEXERIL) 00:00: mouth 3 of 5 MG tablet 00 times Medicin daily as e needed. ondansetron 0 Yes 4mg Take 1 [facility] (ZOFRAN) 4 5-04 Tablet by Cristiano ege MG tablet 00:00: mouth of 00 every 6 Medicin hours as e needed for Nausea. duloxetine Yes TAKE 1 [facility] (CYMBALTA) 5-04 CAPSULE BY [facility] 30 MG 00:00: MOUTH ONCE of capsule 00 DAILY Medicin e acetaminoph 0 Yes 500mg Take 500 [facility] en 3-29 mg by [place] (TYLENOL) 18:42: mouth. of 500 mg 24 Medicin tablet e clopidogrel 0 Yes 75mg Take 75 mg [facility] (PLAVIX) 75 3-29 by mouth. Col [facility] MG Tablet 18:42: of 24 Medicin e famotidine 0 Yes 40mg Take 40 mg [facility] (PEPCID) 40 3-29 by mouth. [facility] MG tablet 18:42: of 24 Medicin e ibuprofen 0 Yes 200mg Take 200 [facility] tony (MOTRIN) 3-29 mg by [place] 200 mg 18:42: mouth. of tablet 24 Medicin e gabapentin 2020-0 Yes as needed [facility] I:118 (NEURONTIN) 1-21 . [id number] 600 MG 00:00: tablet 00 dextroamphe 2020-0 Yes as needed N PI:118 tamine-amph 1-21 . [id number] etamine 00:00: (ADDERALL 00 XR) 20 MG 24 hr capsule gabapentin 2020-0 Yes as needed [facility] I:118 (NEURONTIN) 1-21 . [id number] 600 MG 00:00: tablet 00 dextroamphe 2020-0 Yes as needed N PI:118 tamine-amph 1-21 . [id number] etamine 00:00: (ADDERALL 00 XR) 20 MG 24 hr capsule gabapentin 2020-0 Yes [facility] (NEURONTIN) 1-21 College 600 MG 00:00: of tablet 00 Medicin e amphetamine 2020-0 Yes [facility] -dextroamph 1-21 [place] etamine 00:00: of (ADDERALL 00 Medicin XR) 20 MG e XR capsule gabapentin 2020-0 Yes Don (NEURONTIN) 1-21 College 600 MG 00:00: of tablet 00 Medicin e amphetamine 2020-0 Yes [facility] -dextroamph 1-21 [place] etamine 00:00: of (ADDERALL 00 Medicin XR) 20 MG e XR capsule gabapentin 2020-0 Yes Don (NEURONTIN) 1-21 College 600 MG 00:00: of tablet 00 Medicin e amphetamine 2020-0 Yes [facility] -dextroamph 1-21 [place] etamine 00:00: of (ADDERALL 00 Medicin XR) 20 MG e XR capsule Amphetamine 2020-0 Yes [facility] -Dextroamph 1-15 [place] etamine 00:00: of (ADDERALL 00 Medicin OR) e Amphetamine 2020-0 2020- No [facility] -Dextroamph 1-15 05-12 [place] etamine 00:00: 00:00 of (ADDERALL 00 :00 Medicin OR) e rosuvastati 2020-0 Yes QD daily . NPI :118 n (CRESTOR) 1-14 [id number] 5 MG tablet 00:00: 00 rosuvastati 2020-0 Yes QD daily . NPI :118 n (CRESTOR) 1-14 [id number] 5 MG tablet 00:00: 00 rosuvastati 2020-0 Yes [facility] n (CRESTOR) 1-14 College 5 MG tablet 00:00: of 00 Medicin e rosuvastati 2020-0 Yes [facility] n (CRESTOR) 1-14 College 5 MG tablet 00:00: of 00 Medicin e rosuvastati 2020-0 Yes [facility] n (CRESTOR) 1-14 College 5 MG tablet 00:00: of 00 Medicin e Cholecalcif 2020-0 Yes 1000U Take 1,000 Don delmis 25 MCG 9-01 Units by Cristiano cohen (1000 UT) 00:00: mouth. of TABS 00 Medicin e Cholecalcif 2020-0 Yes 1000U Take 1,000 Don delmsi 25 MCG 9-01 Units by Cristiano cohen (1000 UT) 00:00: mouth. of TABS 00 Medicin e cholecalcif 2020-0 Yes 1000U QD Take 1,000 NPI:118 delmis 9-01 Units by [id number] (VITAMIN 00:00: mouth D3) 25 mcg 00 daily . (1,000 unit) tablet cholecalcif 2020-0 Yes 1000U QD Take 1,000 NPI:118 delmis 9-01 Units by [id number] (VITAMIN 00:00: mouth D3) 25 mcg 00 daily . (1,000 unit) tablet cholecalcif 2020-0 Yes [id number] 1000U Take 1 NPI:183 delmis, 9-01 tablet by [id number] vitamin D3, 00:00: mouth 25 mcg 00 daily. (1,000 unit) tablet cholecalcif 2020-0 Yes [id number] 1000U Take 1 NPI:183 delmis, 9- [id number] tablet by [id number] 1 vitamin D3, 00:00: mouth 25 mcg 00 daily. (1,000 unit) tablet cholecalcif 2020-0 Yes [id number] 1000U Take 1 NPI:183 delmis, 9- 7773006 tablet by [id number] 1 vitamin D3, 00:00: mouth 25 mcg 00 daily. (1,000 unit) tablet cholecalcif 2020-0 Yes [id number] 1000U Take 1 NPI:183 delmis, 9- [id number] tablet by [id number] 1 vitamin D3, 00:00: mouth 25 mcg 00 daily. (1,000 unit) tablet Cholecalcif 2020-0 Yes 1000U Take 1,000 [facility] delmis 25 MCG 9-01 Units by Cristiano cohen (1000 UT) 00:00: mouth. of TABS 00 Medicin e acetaminoph 2020-0 Yes 500mg Take 500 N PI:183 en (TYLENOL 8-31 mg by [id number] EXTRA 22:54: mouth STRENGTH) 56 every 6 500 mg (six) tablet hours as needed. ibuprofen 2020-0 Yes 200mg Take 200 NPI :183 (ADVIL) 200 8-31 mg by [id number] mg tablet 22:54: mouth 56 every 6 (six) hours as needed. clopidogreL 2020-0 Yes 75mg Take 75 mg NPI:183 (PLAVIX) 75 8-31 by mouth 1318 781 mg tablet 22:54: daily. 56 famotidine 2020-0 Yes 40mg Take 40 mg N PI:183 (PEPCID) 40 8-31 by mouth 1318 781 mg tablet 22:54: daily. 56 acetaminoph 2020-0 Yes 500mg Take 500 N PI:183 en (TYLENOL 8-31 mg by [id number] EXTRA 22:54: mouth STRENGTH) 56 every 6 500 mg (six) tablet hours as needed. ibuprofen 2020-0 Yes 200mg Take 200 NPI :183 (ADVIL) 200 8-31 mg by [id number] mg tablet 22:54: mouth 56 every 6 (six) hours as needed. clopidogreL 2020-0 Yes 75mg Take 75 mg NPI:183 (PLAVIX) 75 8-31 by mouth 1318 781 mg tablet 22:54: daily. 56 famotidine 2020-0 Yes 40mg Take 40 mg N PI:183 (PEPCID) 40 8-31 by mouth 1318 781 mg tablet 22:54: daily. 56 acetaminoph 2020-0 Yes 500mg Take 500 N PI:183 en (TYLENOL 8-31 mg by [id number] EXTRA 22:54: mouth STRENGTH) 56 every 6 500 mg (six) tablet hours as needed. ibuprofen 2020-0 Yes 200mg Take 200 NPI :183 (ADVIL) 200 8-31 mg by [id number] mg tablet 22:54: mouth 56 every 6 (six) hours as needed. clopidogreL 2020-0 Yes 75mg Take 75 mg NPI:183 (PLAVIX) 75 8-31 by mouth 1318 781 mg tablet 22:54: daily. 56 famotidine 2020-0 Yes 40mg Take 40 mg N PI:183 (PEPCID) 40 8-31 by mouth 1318 781 mg tablet 22:54: daily. 56 acetaminoph 2020-0 Yes 500mg Take 500 N PI:183 en (TYLENOL 8-31 mg by [id number] EXTRA 22:54: mouth STRENGTH) 56 every 6 500 mg (six) tablet hours as needed. ibuprofen 2020-0 Yes 200mg Take 200 NPI :183 (ADVIL) 200 8-31 mg by [id number] mg tablet 22:54: mouth 56 every 6 (six) hours as needed. clopidogreL 2020-0 Yes 75mg Take 75 mg NPI:183 (PLAVIX) 75 8-31 by mouth 1318 781 mg tablet 22:54: daily. 56 famotidine 2020-0 Yes 40mg Take 40 mg N PI:183 (PEPCID) 40 8-31 by mouth 1318 781 mg tablet 22:54: daily. 56 azithromyci 2020-0 2020- No 250mg Take 250 NPI:183 n 250 mg 01-16 08-31 mg by [id number] tablet 20:50: 00:00 mouth 32 :00 daily. Take 500 mg day 1, then 250 mg days 2 to 5. cefdinir 2020-0 2020- No 300mg Take 300 NPI :183 300 mg 01-16 08-31 mg by [id number] capsule 20:50: 00:00 mouth 32 :00 every 24 (twenty-fo ur) hours. methylPREDN 2020-0 2020- No 4mg Take 4 mg NPI:183 ISolone 4 01-16- by mouth [id number] 81 mg tablets 20:50: 00:00 SEE-INSTRU 32 :00 CTIONS. follow package directions enoxaparin 2020-0 Yes 40mg 40 mg, NPI:1 83 (LOVENOX) 8- Subcutaneo 1318 781 injection 14:00: us, Q24H, 40 mg 00 First dose on Fri01/17/20 at 0900, Until Discontinu ed, Routine famotidine 2020-0 Yes 40mg 40 mg, NPI:1 83 (PEPCID AC) 8- Oral, [id number] tablet 40 14:00: DAILY, mg 00 First dose on 8/31/20 at 0900, Until Discontinu ed, Routine cholecalcif 2020-0 Yes 1000U 1,000 NPI: 183 delmis 8-31 Units, [id number] (vitamin 14:00: Oral, D3) tablet 00 DAILY, 1,000 Units First dose on 01/17/20 at 0900, Until Discontinu ed, Routine benzonatate 2020-0 Yes 100mg 100 mg, [facility] I:183 (TESSALON 8-31 Oral, TID, 1318 781 PERLES) 01:00: First dose capsule 100 00 on Sun mg 01/16/20 at 1999, Until Discontinu ed, Routine zinc 2020-0 Yes 220mg 220 mg, NPI:183 sulfate 8-31 Oral, TID, 709236 1 (ORAZINC) 01:00: First dose capsule 220 00 on Sun mg 01/16/20 at 1999, Until Discontinu ed, Routine ascorbic 2020-0 Yes 500mg 500 mg, NPI:1 83 acid 8-31 Oral, BID, [id number] (vitamin C) 01:00: First dose (VITAMIN C) 00 on Sun tablet 500 01/16/20 at mg 1999, Until Discontinu ed, Routine zinc 2020-0 Yes 220mg Take 220 [facility] sulfate 8-31 mg by College (ZINCATE) 00:00: mouth. of 220 (50 Zn) 00 Medicin MG capsule e albuterol 2020-0 Yes 2{puff} 2 Puffs by [facility] 108 (90 8-31 Inhalation [employer]) 00:00: route. of mcg/act 00 Medicin inhaler e ascorbic 2020-0 Yes 500mg Take 500 [facility] acid 500 MG 8-31 mg by College tablet 00:00: mouth. of 00 Medicin e dexamethaso 2020-0 Yes 4mg Take 4 mg [facility] ne 8-31 by mouth. College (DECADRON) 00:00: of 4 MG tablet 00 Medicin e zinc 2020-0 Yes 220mg Take 220 Don sulfate 8-31 mg by [facility] (ZINCATE) 00:00: mouth. of 220 (50 Zn) 00 Medicin MG capsule e albuterol 2020-0 Yes 2{puff} 2 Puffs by Don 108 (90 8-31 Inhalation [employer]) 00:00: route. of mcg/act 00 Medicin inhaler e ascorbic 2020-0 Yes 500mg Take 500 [facility] acid 500 MG 8-31 mg by [place] tablet 00:00: mouth. of 00 Medicin e dexamethaso 2020-0 Yes 4mg Take 4 mg [facility] ne 8-31 by mouth. [place] (APRAD) 00:00: of 4 MG tablet 00 Medicin e zinc 2020-0 Yes 220mg Take 220 [facility] sulfate 8-31 mg by [place] (ZINCATE) 00:00: mouth. of 220 (50 Zn) 00 Medicin MG capsule e albuterol 2020-0 Yes 2{puff} 2 Puffs by [facility] 108 (90 8-31 [facility]ation [employer]) 00:00: route. of mcg/act 00 Medicin inhaler e ascorbic 2020-0 Yes 500mg Take 500 [facility] acid 500 MG 8-31 mg by [place] tablet 00:00: mouth. of 00 Medicin e dexamethaso 2020-0 Yes 4mg Take 4 mg [facility] ne 8-31 by mouth. [place] (APRAD) 00:00: of 4 MG tablet 00 Medicin e zinc 2020-0 Yes 220mg QD Take 220 NPI:118 sulfate 8-31 mg by [id number] (ZINCATE) 00:00: mouth 220 (50) mg 00 daily . capsule ascorbic 2020-0 Yes 500mg QD Take 500 NPI: 118 acid, 8-31 mg by [id number] vitamin C, 00:00: mouth (VITAMIN C) 00 daily . 500 MG tablet albuterol 2020-0 Yes 2{puff} Inhale 2 N PI:118 HFA 8-31 puffs by [id number] (VENTOLIN 00:00: mouth via HFA) 90 00 inhaler mcg/actuati every 6 on inhaler (six) hours as needed . zinc 2020-0 Yes 220mg QD Take 220 NPI:118 sulfate 8-31 mg by [id number] (ZINCATE) 00:00: mouth 220 (50) mg 00 daily . capsule ascorbic 2020-0 Yes 500mg QD Take 500 NPI: 118 acid, 8-31 mg by [id number] vitamin C, 00:00: mouth (VITAMIN C) 00 daily . 500 MG tablet albuterol 2020-0 Yes 2{puff} Inhale 2 N PI:118 HFA 8-31 puffs by [id number] (VENTOLIN 00:00: mouth via HFA) 90 00 inhaler mcg/actuati every 6 on inhaler (six) hours as needed . albuterol 2020-0 Yes [id number] 2{puff} Inhale 2 NPI:183 90 8-31 Puffs [id number] mcg/actuati 00:00: every 4 on inhaler 00 (four) hours as needed for Wheezing or Shortness of Breath. ascorbic 2020-0 Yes [id number] 500mg Take 1 N PI:183 acid, 8-31 tablet by [id number] vitamin C, 00:00: mouth 500 mg 00 daily. tablet zinc 2020-0 Yes [id number] 220mg Take 1 NPI:1 83 sulfate 220 8-31 capsule by 13 68180 (50) mg 00:00: mouth capsule 00 daily. dexAMETHaso 2020-0 Yes [id number] 4mg Take 1 NPI:183 ne 4 mg 8-31 tablet by [id number] tablet 00:00: mouth 00 daily. albuterol 2020-0 Yes [id number] 2{puff} Inhale 2 NPI:183 90 8-31 [id number] Puffs 7534874 mcg/actuati 00:00: every 4 on inhaler 00 (four) hours as needed for Wheezing or Shortness of Breath. ascorbic 2020-0 Yes [id number] 500mg Take 1 NPI:183 acid, 8-31 7254748 tablet by [id number] 1 vitamin C, 00:00: mouth 500 mg 00 daily. tablet zinc 2020-0 Yes [id number] 220mg Take 1 NPI :183 sulfate 220 8-31 [id number] capsule by 2630098 (50) mg 00:00: mouth capsule 00 daily. dexAMETHaso 2020-0 Yes [id number] 4mg Take 1 NPI:183 ne 4 mg 8-31 [id number] tablet by [id number] 781 tablet 00:00: mouth 00 daily. albuterol 2020-0 Yes [id number] 2{puff} Inhale 2 NPI:183 90 8-31 [id number] Puffs 1775964 mcg/actuati 00:00: every 4 on inhaler 00 (four) hours as needed for Wheezing or Shortness of Breath. ascorbic 2020-0 Yes [id number] 500mg Take 1 NPI:183 acid, 8-31 1635754 tablet by [id number] 1 vitamin C, 00:00: mouth 500 mg 00 daily. tablet zinc 2020-0 Yes [id number] 220mg Take 1 NPI :183 sulfate 220 8-31 [id number] capsule by 8647096 (50) mg 00:00: mouth capsule 00 daily. dexAMETHaso 2020-0 Yes [id number] 4mg Take 1 NPI:183 ne 4 mg 8-31 8636666 tablet by 1318 781 tablet 00:00: mouth 00 daily. albuterol 2020-0 Yes [id number] 2{puff} Inhale 2 NPI:183 90 8-31 [id number] Puffs 3572846 mcg/actuati 00:00: every 4 on inhaler 00 (four) hours as needed for Wheezing or Shortness of Breath. ascorbic 2020-0 Yes [id number] 500mg Take 1 NPI:183 acid, 8- 2458109 tablet by [id number] 1 vitamin C, 00:00: mouth 500 mg 00 daily. tablet zinc 2020-0 Yes [id number] 220mg Take 1 NPI :183 sulfate 220 8 7802455 capsule by 9012634 (50) mg 00:00: mouth capsule 00 daily. dexAMETHaso 2020-0 Yes [id number] 4mg Take 1 NPI:183 ne 4 mg 8 [id number] tablet by 1318 781 tablet 00:00: mouth 00 daily. zolpidem 2020-0 Yes 5mg 5 mg, NPI:183 (AMBIEN) 8-30 Oral, [id number] tablet 5 mg 23:46: QHSPRN, 13 Starting 01/16/20 at 1846, Until Discontinu ed, Routine, Insomnia albuterol 2020-0 Yes 2{puff} 2 Puff, [facility] I:183 (VENTOLIN) 8-30 Inhalation 131 8781 inhaler 2 23:40: , Q4HPRN, Puff 38 Starting 01/16/20 at 1840, Until Discontinu ed, Routine, Wheezing, Shortness of Breath
Is this order for a patient with suspected or confirmed COVID-19 infection? Yes ondansetron 2020-0 Yes 4mg 4 mg, Slow NPI:183 (ZOFRAN 8-30 IV Push, [id number] (PF)) 21:02: Q6HPRN, injection 4 30 Starting mg 01/16/20 at 1602, Until Discontinu ed, Routine, Nausea and Vomiting (N/V) acetaminoph 2020-0 Yes 650mg 650 mg, [facility] I:183 en 01-15 Oral, [id number] (TYLENOL) 21:02: Q6HPRN, tablet 650 10 Starting mg 01/16/20 at 1602, Until Discontinu ed, Routine, Pain (scale 1-3) FENTanyl PF 2019-2019- No 50ug 50 mcg, [facility] I:183 (SUBL[place]AZE 01-[place] [address] 81 (PF)) 12:30: 11:30 Push, injection 00 :00 ONCE, 1 50 mcg dose, 01/14/20 at 0730, STAT acetaminoph 2019-0 2020- No 650mg 650 mg, N PI:183 en 01-13 Oral, [id number] (TYLENOL) 12:15: 11:07 ONCE, 1 tablet 650 00 :00 dose, Fri mg 01/14/20 at 0715, TRISH iohexol 2019-0 2020- No 120mL 120 mL, NPI:1 83 (OMNIPAQUE 01-13 Intravenou 13 17638 350 11:15: 10:57 s, ONCE, 1 BULK-150 00 :00 dose, Fri mL) 01/14/20 at injection 0615, 120 mL Routine dicyclomine 2020-0 2020- No [id number] 10mg Take 1 NPI:183 (BENTYL) 10 01-13-03 capsule by 1 [id number] mg capsule 00:00: 04:59 mouth 4 00 :00 (four) times daily for 5 days. dicyclomine 2019-0 2020- No [id number] 10mg Take 1 NPI:183 (BENTYL) 10 01-13-03 capsule by 1 [id number] mg capsule 00:00: 04:59 mouth 4 00 :00 (four) times daily for 5 days. estradiol 2020-0 Yes 1{patch Place 1 [facility] (CLIMARA) 5-21 } Patch onto Cristiano ege 0.025 00:00: the skin. of MG/24HR 00 Medicin patch e estradiol 2020-0 Yes 1{patch Place 1 [facility] (CLIMARA) 5-21 } Patch onto Cristiano ege 0.025 00:00: the skin. of MG/24HR 00 Medicin patch e estradiol 2020-0 Yes 1{patch Place 1 [facility] (CLIMARA) 5-21 } Patch onto Cristiano ege 0.025 00:00: the skin. of MG/24HR 00 Medicin patch e estradiol 2020-0 Yes [id number] 1{patch Apply 1 NPI:183 0.025 mg/24 5-21 } Patch to 1318 781 hr patch 00:00: skin 00 weekly. estradiol 2020-0 Yes [id number] 1{patch Apply 1 NPI:183 0.025 mg/24 5-21 } Patch to 1318 781 hr patch 00:00: skin 00 weekly. estradiol 2020-0 Yes [id number] 1{patch Apply 1 NPI:183 0.025 mg/24 5-21 } Patch to 1318 781 hr patch 00:00: skin 00 weekly. estradiol 2020-0 Yes [id number] 1{patch Apply 1 NPI:183 0.025 mg/24 5-21 } Patch to 1318 781 hr patch 00:00: skin 00 weekly. estradiol 2020-0 Yes [id number] 1{patch Apply 1 NPI:183 0.025 mg/24 5-21 } Patch to 1318 781 hr patch 00:00: skin 00 weekly. estradiol 2020-0 Yes [id number] 1{patch Apply 1 NPI:183 0.025 mg/24 5-21 } Patch to 1318 781 hr patch 00:00: skin 00 weekly. estradiol 2019-0 Yes [id number] 1{patch Apply 1 NPI:183 0.025 mg/24 9-19 } Patch to 1318 781 hr patch 00:00: skin 00 weekly. estradiol 2019-0 Yes [id number] 1{patch Apply 1 NPI:183 0.025 mg/24 9-19 } Patch to 1318 781 hr patch 00:00: skin 00 weekly. estradiol 2019-0 2020- No [id number] 1{patch Apply 1 NPI:183 0.025 mg/24 9-19 05-21 } Patch to 131 8781 hr patch 00:00: 00:00 skin 00 :00 weekly. estradiol 2019-0 2019- No [id number] 1{patch Apply 1 NPI:183 0.025 mg/24 6-24 09-19 } Patch to 131 8781 hr patch 00:00: 00:00 skin 00 :00 weekly. estradiol 2019-0 2019- No [id number] 1{patch Apply 1 NPI:183 0.025 mg/24 11-0919 } Patch to 131 8781 hr patch 00:00: 00:00 skin 00 :00 weekly. fluticasone 2017-0 Yes [id number] 2{spray Use 2 NPI:183 (FLONASE) 8-23 } [place] [address] 81 50 00:00: each mcg/actuati 00 nostril on nasal daily. spray fluticasone 2017-0 Yes [id number] 2{spray Use 2 NPI:183 (FLONASE) 8-23 } [place] [address] 81 50 00:00: each mcg/actuati 00 nostril on nasal daily. spray fluticasone 2017-0 Yes [id number] 2{spray Use 2 NPI:183 (FLONASE) 8-23 } [place] [address] 81 50 00:00: each mcg/actuati 00 nostril on nasal daily. spray fluticasone 2017-0 Yes [id number] 2{spray Use 2 NPI:183 (FLONASE) 8-23 } [place] [address] 81 50 00:00: each mcg/actuati 00 nostril on nasal daily. spray azithromyci 2017-0 Yes [id number] 500mg Take 1 NPI:183 n 500 mg 8-23 tablet by [id number] 1 tablet 00:00: mouth 00 daily. fluticasone 2017-0 Yes [id number] 2{spray Use 2 NPI:183 (FLONASE) 8-23 } [place] [address] 81 50 00:00: each mcg/actuati 00 nostril on nasal daily. spray azithromyci 2017-0 Yes [id number] 500mg Take 1 NPI:183 n 500 mg 8-23 tablet by [id number] 1 tablet 00:00: mouth 00 daily. fluticasone 2017-0 Yes [id number] 2{spray Use 2 NPI:183 (FLONASE) 8-23 } [place] [address] 81 50 00:00: each mcg/actuati 00 nostril on nasal daily. spray azithromyci 2017-0 Yes [id number] 500mg Take 1 NPI:183 n 500 mg 8-23 tablet by [id number] 1 tablet 00:00: mouth 00 daily. fluticasone 2017-0 Yes [id number] 2{spray Use 2 NPI:183 (FLONASE) 8-23 } [place] [address]290 81 50 00:00: each mcg/actuati 00 nostril on nasal daily. spray azithromyci 2017-0 Yes [id number] 500mg Take 1 NPI:183 n 500 mg 8-23 tablet by [id number] 1 tablet 00:00: mouth 00 daily. fluticasone 2017-0 Yes [id number] 2{spray Use 2 NPI:183 (FLONASE) 8-23 } [place] [address] 81 50 00:00: each mcg/actuati 00 nostril on nasal daily. spray azithromyci 2017-0 2020- No [id number] 500mg Take 1 NPI:183 n 500 mg 8-23 08-[place] [id number] 81 tablet 00:00: 00:00 mouth 00 :00 daily. acetaminoph 2017-0 Yes 500mg Take 500 N PI:183 en (TYLENOL 6-14 mg by [id number] EXTRA 01:25: mouth STRENGTH) 53 every 6 500 mg (six) tablet hours as needed. ibuprofen 2017-0 Yes 200mg Take 200 NPI :183 (ADVIL) 200 6-14 mg by [id number] mg tablet 01:25: mouth 53 every 6 (six) hours as needed. acetaminoph 2017-0 Yes 500mg Take 500 N PI:183 en (TYLENOL 6-14 mg by [id number] EXTRA 01:25: mouth STRENGTH) 53 every 6 500 mg (six) tablet hours as needed. ibuprofen 2017-0 Yes 200mg Take 200 NPI :183 (ADVIL) 200 6-14 mg by [id number] mg tablet 01:25: mouth 53 every 6 (six) hours as needed. acetaminoph 2017-0 Yes 500mg Take 500 N PI:183 en (TYLENOL 6-14 mg by [id number] EXTRA 01:25: mouth STRENGTH) 53 every 6 500 mg (six) tablet hours as needed. ibuprofen 2017-0 Yes 200mg Take 200 NPI :183 (ADVIL) 200 6-14 mg by [id number] mg tablet 01:25: mouth 53 every 6 (six) hours as needed. acetaminoph 2017-0 Yes 500mg Take 500 N PI:183 en (TYLENOL 6-14 mg by [id number] EXTRA 01:25: mouth STRENGTH) 53 every 6 500 mg (six) tablet hours as needed. ibuprofen 2017 Yes 200mg Take 200 NPI :183 (ADVIL) 200 6-14 mg by [id number] mg tablet 01:25: mouth 53 every 6 (six) hours as needed. rOPINIRole 2015-05 Yes 1mg Q.[id number] Take 1 mg NPI:118 (REQUIP) 1 05-27 [id number] by mouth 3 [id number] MG tablet 17:24: 3D (three) 27 times daily Pt stated that she is unsure of the dose and only takes it prn . rOPINIRole 2015-05 Yes 1mg Q.[id number] Take 1 mg NPI:118 (REQUIP) 1 05-27 [id number] by mouth 3 [id number] MG tablet 17:24: 3D (three) 27 times daily Pt stated that she is unsure of the dose and only takes it prn . aspirin 81 2015-05 Yes 81mg QD Take 1 NPI:1 18 MG chewable 1-09 tablet (81 46 30967 tablet 00:00: mg total) 00 by mouth daily. atorvastati 2015-05 Yes 80mg QD Take 1 NPI: 118 n (LIPITOR) 1-09 tablet (80 46 29090 80 MG 00:00: mg total) tablet 00 by mouth daily. aspirin 81 2015-05 Yes 81mg QD Take 1 NPI:1 18 MG chewable 1-09 tablet (81 46 87830 tablet 00:00: mg total) 00 by mouth daily. atorvastati 2015-05 Yes 80mg QD Take 1 NPI: 118 n (LIPITOR) 1-09 tablet (80 46 16202 80 MG 00:00: mg total) tablet 00 by mouth daily. acetaminoph Yes May take [facility] I:183 en-codeine 7- 1-2 tabs [id number] 81 (TYLENOL 00:00: every 6 #3) 300-30 00 hours for mg tablet pain acetaminoph 0 Yes May take [facility] I:183 en-codeine 7-27 1-2 tabs [id number] 81 (TYLENOL 00:00: every 6 #3) 300-30 00 hours for mg tablet pain acetaminoph 0 Yes May take [facility] I:183 en-codeine 7-27 1-2 tabs 38879 81 (TYLENOL 00:00: every 6 #3) 300-30 00 hours for mg tablet pain acetaminoph 2014- Yes May take [facility] I:183 en-codeine 7-27 1-2 tabs 07965 81 (TYLENOL 00:00: every 6 #3) 300-30 00 hours for mg tablet pain acetaminoph 2014- Yes May take [facility] I:183 en-codeine 7-27 1-2 tabs 70285 81 (TYLENOL 00:00: every 6 #3) 300-30 00 hours for mg tablet pain acetaminoph 2014- Yes May take [facility] I:183 en-codeine 7-27 1-2 tabs 71293 81 (TYLENOL 00:00: every 6 #3) 300-30 00 hours for mg tablet pain acetaminoph 2014- Yes May take [facility] I:183 en-codeine 7-27 1-2 tabs 26621 81 (TYLENOL 00:00: every 6 #3) 300-30 00 hours for mg tablet pain acetaminoph 2014- Yes May take [facility] I:183 en-codeine 7-27 1-2 tabs [id number] 81 (TYLENOL 00:00: every 6 #3) 300-30 00 hours for mg tablet pain Immunizations Ordered Immunization Filled Immunization Date Status Commen ts Source Name Name Influenza 2019-03-26 Completed [facility] (Preservative Free) [facility] Influenza 2019-03-26 Completed [facility] (Preservative Free) 00:00:[facility] Influenza Virus 2019-03-26 Completed NPI:[id number] Vaccine Quad .5 mL 00:00:00 IM 6+ MO Influenza Virus 2019-03-26 Completed NPI:[id number] Vaccine Quad .5 mL 00:00:00 IM 6+ MO Influenza Virus 2019-03-26 Completed NPI:[id number] Vaccine Quad .5 mL 00:00:00 IM 6+ MO Influenza Virus 2019-03-26 Completed NPI:[id number] Vaccine Quad .5 mL 00:00:00 IM 6+ MO Zoster Recombinant 2018-11-10 Completed [facility] 00:00:00 of Medicine Zoster Recombinant 2018-11-10 Completed [facility] 00:00:00 of Medicine Zoster Vaccine 2018-11-10 Completed NPI:[id number] Recombinant 00:00:00 Zoster Vaccine 2018-11-10 Completed NPI:[id number] Recombinant 00:00:00 Zoster Vaccine 2018-11-10 Completed NPI:[id number] Recombinant 00:00:00 Zoster Vaccine 2018-11-10 Completed NPI:[id number] Recombinant 00:00:00 Zoster Recombinant 2018-08-07 Completed [facility] 00:00:00 of Medicine Zoster Recombinant 2018-08-07 Completed [facility] 00:00:00 of Medicine Zoster Vaccine 2018-08-07 Completed NPI:[id number] Recombinant 00:00:00 Zoster Vaccine 2018-08-07 Completed NPI:[id number] Recombinant 00:00:00 Zoster Vaccine 2018-08-07 Completed NPI:[id number] Recombinant 00:00:00 Zoster Vaccine 2018-08-07 Completed NPI:[id number] Recombinant 00:00:00 Td 2008-10-08 Completed [facility] 00:00:00 of Medicine Td 2008-10-08 Completed [facility] 00:00:00 of Medicine Td 2008-10-08 Completed 00:00:00 Td 2008-10-08 Completed 00:00:00 Td 2008-10-08 Completed 00:00:00 Td 2008-10-08 Completed 00:00:00 Td 2008-10-08 Completed 00:00:00 Td 2008-10-08 Completed 00:00:00 Td 2008-10-08 Completed 00:00:00 Td 2008-10-08 Completed 00:00:00 Vital Signs Vital Name Observation Time Observation Value Comments Source HEIGHT 2020-09-21 07:49:00 160 cm WEIGHT 2020-09-21 07:49:00 77.7 kg HEIGHT 2020-09-13 09:43:00 160 cm WEIGHT 2020-09-13 09:43:00 74.844 kg Body height 2020-11-15 19:36:00 160 cm [facility] Body weight 2020-11-15 19:36:00 72.576 kg [facility] [employer] [employer] BMI 2020-11-15 19:36:00 28.34 kg/m2 [facility] [employer] HEIGHT 2020-09-21 07:49:00 160 cm WEIGHT 2020-09-21 07:49:00 77.7 kg HEIGHT 2020-09-13 09:43:00 160 cm WEIGHT 2020-09-13 09:43:00 74.844 kg Body height 2020-08-14 18:40:00 160 cm [facility] [employer] Body weight 2020-08-14 18:40:00 72.576 kg [facility] [employer] BMI 2020-08-14 18:40:00 28.34 kg/m2 [facility] Body height 2020-07-24 20:16:00 160 cm NPI:1831 [id number] Body weight 2020-07-24 20:16:00 72.576 kg NPI:1831 [id number] BMI 2020-07-24 20:16:00 28.34 kg/m2 NPI:1831 [id number] Body height 2020-07-24 20:16:00 160 cm NPI:1831 [id number] Body weight 2020-07-24 20:16:00 72.576 kg NPI:1831 [id number] BMI 2020-07-24 20:16:00 28.34 kg/m2 NPI:1831 [id number] Respiratory rate 2020-01-17 18:32:00 16 /min Oxygen saturation in 2020-01-17 18:32:00 96 /min Arterial blood by Pulse oximetry Systolic blood 2020-01-17 16:39:00 124 mm[Hg] NPI:18 [id number] pressure Diastolic blood 2020-01-17 16:39:00 77 mm[Hg] NPI:1 [id number] pressure Heart rate 2020-01-17 16:39:00 75 /min NPI:1831 [id number] Body temperature 2020-01-17 16:39:00 35.5 Sharlene Body weight 2020-01-16 15:55:00 72.576 kg NPI:1831 609726 BMI 2020-01-16 15:55:00 28.34 kg/m2 NPI:1831 196947 Systolic blood 2020-01-14 11:00:00 134 mm[Hg] NPI:18 [id number] pressure Diastolic blood 2020-01-14 11:00:00 84 mm[Hg] NPI:1 [id number] pressure Heart rate 2020-01-14 11:00:00 70 /min NPI:1831 [id number] Respiratory rate 2020-01-14 11:00:00 13 /min Oxygen saturation in 2020-01-14 11:00:00 95 /min Arterial blood by Pulse oximetry Body temperature 2020-01-14 09:54:00 37.44 Sharlene Body weight 2020-01-14 09:54:00 72.576 kg NPI:1831 [id number] BMI 2020-01-14 09:54:00 28.34 kg/m2 NPI:1831 135891 Systolic blood 2019-02-04 13:26:00 130 mm[Hg] NPI:18 [id number] pressure Diastolic blood 2019-02-04 13:26:00 80 mm[Hg] NPI:1 [id number] pressure Heart rate 2019-02-04 13:26:00 75 /min NPI:1831 [id number] Body temperature 2019-02-04 13:26:00 36.5 Sharlene Respiratory rate 2019-02-04 13:26:00 18 /min Body height 2019-02-04 13:26:00 160 cm NPI:1831 474248 Body weight 2019-02-04 13:26:00 77.111 kg NPI:1831 505279 BMI 2019-02-04 13:26:00 30.11 kg/m2 NPI:1831 [id number] Systolic blood 2020-09-21 14:30:00 104 mm[Hg] NPI:11 [id number] pressure Diastolic blood 2020-09-21 14:30:00 64 mm[Hg] NPI:1 [id number] pressure Heart rate 2020-09-21 14:30:00 65 /min NPI:1184 [id number] Body temperature 2020-09-21 14:30:00 36.28 Sharlene Respiratory rate 2020-09-21 14:30:00 15 /min Oxygen saturation in 2020-09-21 14:30:00 95 /min Arterial blood by Pulse oximetry Body height 2020-09-21 07:49:00 160 cm NPI:1184 [id number] Body weight 2020-09-21 07:49:00 77.7 kg NPI:1184 [id number] BMI 2020-09-21 07:49:00 30.34 kg/m2 NPI:1184 [id number] Procedures Procedure Date / Time Performed Performing Clinician [facility] e ARTHROSCOPY,SHOULDER 2020-09-21 09:36:00 Shybut, Ed NPI:11 [id number] ROTATOR CUFF REPAIR W/ Andres GRAFT ARTHROSCOPY,SHOULDER 2020-09-21 09:36:00 Shybut, Ed NPI:11 [id number] DECOMPRESSION SUBACROMIAL Andres SPACE W/ACROMIOPLASTY ARTHROSCOPY,BICEPS 2020-09-21 09:36:00 Shybut, Ed NPI:[id number] TENODESIS Andres ANESTHESIA PERIPHERAL 2020-09-21 09:22:17 Robbin Reynoso NPI:11 [id number] BLOCK PNEUMOCOCCAL ANTIGEN 2020-01-17 02:07:00 Gabrielle Ocasio NPI:950 [id number] C-REACTIVE PROTEIN 2020-01-16 21:39:00 Gabrielle Ocasio NPI:[id number] VITAMIN D, 25-OH 2020-01-16 21:39:00 Gabrielle Ocasio NPI:[id number] PROCALCITONIN 2020-01-16 21:39:00 Gabrielle Ocasio NPI:[id number] XR CHEST 1 VW COVID 2020-01-16 17:14:45 Marlen Pond NPI:017 [id number] BLOOD CULTURE SCREEN 2020-01-16 16:28:00 Marlen Pond NPI:18 [id number] ACUTE CARE VENOUS BLOOD 2020-01-16 16:28:00 Marlen Pond NPI :[id number] GAS LACTATE DEHYDROGENASE 2020-01-16 16:19:00 Marlen Pond NPI:1 [id number] FERRITIN SERUM 2020-01-16 16:19:00 Drever, Marlen G NPI:[id number] TROPONIN I 2020-01-16 16:19:00 ver, Marlen G NPI:[id number] HEPATIC FUNCTION PANEL 2020-01-16 16:19:00 Drever, Marlen G ([id number]) (ALB,T.PRO,BILI T,BU/BC,ALT,AST,ALK PHOS) BASIC METABOLIC PANEL (NA, 2020-01-16 16:19:00 Drever, Marlen Steven K, CL, CO2, GLUCOSE, BUN, CREATININE, CA) CBC WITH DIFF 2020-01-16 16:19:00 ver, Marlen Steven NPI:[id number] PROTHROMBIN TIME / INR 2020-01-16 16:19:00 Drever, Marlen G D-DIMER 2020-01-16 16:19:00 ver, Marlen G NPI:[id number] ACTIVATED PARTIAL THRMPLAS 2020-01-16 16:19:00 Dre, Marlen G AMANDEEP FIBRINOGEN 2020-01-16 16:19:00 ver, Marlen G NPI:[id number] URINALYSIS 2020-01-16 16:19:00 ver, Marlen G NPI:[id number] URINE CULTURE 2020-01-16 16:19:00 , Marlen G NPI:[id number] N-TERMINAL PRO-BNP 2020-01-16 16:19:00 , Marlen G NPI:1831 [id number] COVID-19 (ID NOW RAPID 2020-01-16 16:19:00 ver, Marlen G TESTING) LACTIC ACID WHOLE BLOOD 2020-01-16 16:18:00 , Marlen G NPI :[id number] EKG-12 LEAD 2020-01-16 16:16:29 ver, Marlen G NPI:[id number] NOTICE OF PRIVACY 2020-01-16 15:44:20 Doctor Unassigned, No PRACTICES Name CONSENT/REFUSAL FOR 2020-01-16 15:44:06 Doctor Unassigned, No [facility] I:[id number] DIAGNOSIS AND TREATMENT Name CT ABDOMEN PELVIS W 2020-01-14 11:03:22 Davis Manzo NPI:[id number] CONTRAST LIPASE 2020-01-14 10:04:00 Davis Manzo NPI:[id number] COMP. METABOLIC PANEL 2020-01-14 10:04:00 Davis Manzo NPI:18 [id number] ([id number]) CBC WITH DIFF 2020-01-14 10:04:00 Davis Manzo NPI:[id number] URINALYSIS 2020-01-14 10:04:00 Davis Manzo NPI:[id number] NOTICE OF PRIVACY 2020-01-14 09:39:58 Doctor Unassigned, No PRACTICES Name CONSENT/REFUSAL FOR 2020-01-14 09:38:59 Doctor Unassigned, No [facility] I:[id number] DIAGNOSIS AND TREATMENT Name Plan of Care Planned Activity Planned Date Details Comments Source Future Scheduled 2021-01-17 INFLUENZA VACCINE (#1) N PI:[id number] Test 00:00:00 [code = INFLUENZA VACCINE (#1)] Future Scheduled 2021-01-17 INFLUENZA VACCINE (#1) N PI:[id number] Test 00:00:00 [code = INFLUENZA VACCINE (#1)] Future Scheduled 2020-11-16 Screening for malignant [facility] Test 21:54:17 neoplasm of colon of Medicin e (procedure) [code = 968627433] Future Scheduled 2020-11-16 Screening for malignant [facility] Test 21:54:17 neoplasm of breast of Medici ne (procedure) [code = 896991596] Future Scheduled 2020-11-16 COVID-19 Vaccine (1) [employer] Test 21:54:17 [code = COVID-19 of Medicine Vaccine (1)] Future Scheduled 2020-11-16 BMI FOLLOW UP PLAN [employer] Test 21:54:17 [code = BMI FOLLOW UP of Med icine PLAN] Future Scheduled 2020-11-16 Hepatitis C screening [facility] [employer] Test 21:54:17 (procedure) [code = of Medic ine 209747503] Future Scheduled 2020-11-16 Human immunodeficiency [employer] Test 21:54:17 virus screening of Medicine (procedure) [code = 756118145] Future Scheduled 2020-11-16 Screening for malignant [facility] Test 21:54:17 neoplasm of cervix of Medici ne (procedure) [code = 855017056] Future Scheduled 2020-11-16 TETANUS SHOT (ADULT) [facility] Test 21:54:17 [code = TETANUS SHOT of Medi cine (ADULT)] Future Scheduled 2020-11-16 FLU VACCINE > 6 MONTHS [facility] Test 21:54:17 [code = FLU VACCINE > 6 of M edicine MONTHS] Future Scheduled 2020-09-27 Screening for malignant [facility] Test 10:55:11 neoplasm of colon of Medicin e (procedure) [code = 847432848] Future Scheduled 2020-09-27 Screening for malignant [facility] Test 10:55:11 neoplasm of breast of Medici ne (procedure) [code = 682801938] Future Scheduled 2020-09-27 COVID-19 Vaccine (1) [facility] Test 10:55:11 [code = COVID-19 of Medicine Vaccine (1)] Future Scheduled 2020-09-27 BMI FOLLOW UP PLAN [facility] [employer] Test 10:55:11 [code = BMI FOLLOW UP of Med icine PLAN] Future Scheduled 2020-09-27 Hepatitis C screening [facility] Test 10:55:11 (procedure) [code = of Medic ine 936653878] Future Scheduled 2020-09-27 Human immunodeficiency B [facility] Test 10:55:11 virus screening of Medicine (procedure) [code = 531523534] Future Scheduled 2020-09-27 Screening for malignant [facility] Test 10:55:11 neoplasm of cervix of Medici ne (procedure) [code = 935422181] Future Scheduled 2020-09-27 TETANUS SHOT (ADULT) [facility] Test 10:55:11 [code = TETANUS SHOT of Medi cine (ADULT)] Future Scheduled 2020-09-27 FLU VACCINE > 6 MONTHS [employer] Test 10:55:11 [code = FLU VACCINE > 6 of M edicine MONTHS] Diagnostic Test 2020-08-14 MRI SHOULDER RIGHT WO Expected: [facility] Pending 00:00:00 CONTRAST [code = 04978] 08/14/2020, of M edicine Expires: 08/14/2021 Future Scheduled 2020-05-19 DEPRESSION SCREENING NPI :[id number] Test 00:00:00 (12+) [code = DEPRESSION SCREENING (12+)] Future Scheduled 2020-05-19 DEPRESSION SCREENING NPI :[id number] Test 00:00:00 (12+) [code = DEPRESSION SCREENING (12+)] Future Scheduled 2018-10-08 DTAP/TDAP/TD VACCINES [facility] I:[id number] Test 00:00:00 (2 - Td or Tdap) [code = DTAP/TDAP/TD VACCINES (2 - Td or Tdap)] Future Scheduled 2018-10-08 DTAP/TDAP/TD VACCINES [facility] I:[id number] Test 00:00:00 (2 - Td or Tdap) [code = DTAP/TDAP/TD VACCINES (2 - Td or Tdap)] Future Scheduled 2011-09-11 SHINGLES VACCINES (1 of Test 00:00:00 2) [code = SHINGLES VACCINES (1 of 2)] Future Scheduled 2011-09-11 SHINGLES VACCINES (1 of Test 00:00:00 2) [code = SHINGLES VACCINES (1 of 2)] Future Scheduled 2006 Lipid panel (procedure) Test 00:00:00 [code = 39688848] Future Scheduled 2006 Lipid panel (procedure) Test 00:00:00 [code = 52925329] Future Scheduled 1982 Screening for malignant Test 00:00:00 neoplasm of cervix (procedure) [code = 002366279] Future Scheduled 1982 Screening for malignant Test 00:00:00 neoplasm of cervix (procedure) [code = 032403469] Future Scheduled 1979-09-11 HEPATITIS C SCREENING [facility] I:[id number] Test 00:00:00 [code = HEPATITIS C SCREENING] Future Scheduled 1979-09-11 HEPATITIS C SCREENING [facility] I:[id number] Test 00:00:00 [code = HEPATITIS C SCREENING] Future Scheduled 1973 COVID-19 VACCINE (1) NPI :[id number] Test 00:00:00 [code = COVID-19 VACCINE (1)] Future Scheduled 1973 COVID-19 VACCINE (1) NPI :[id number] Test 00:00:00 [code = COVID-19 VACCINE (1)] Future Scheduled 1961 Screening for malignant Test 00:00:00 neoplasm of breast (procedure) [code = 561825971] Future Scheduled 1961 Screening for malignant Test 00:00:00 neoplasm of colon (procedure) [code = 080229310] Future Scheduled 1961 Screening for malignant Test 00:00:00 neoplasm of breast (procedure) [code = 444444479] Future Scheduled 1961 Screening for malignant Test 00:00:00 neoplasm of colon (procedure) [code = 672330875] Future Scheduled ORT - XR SHOULDER RIGHT Ordered: [facility] [employer] Test 3V (CHARGE ONLY) [code 08/14/2020 of Me dicine = 66108] Future Scheduled Screening for malignant [facility] Test neoplasm of colon of Medicin e (procedure) [code = 152176207] Future Scheduled Screening for malignant [facility] [employer] Test neoplasm of breast of Medici ne (procedure) [code = 474510097] Future Scheduled COVID-19 Vaccine (1) [employer] Test [code = COVID-19 of Medicine Vaccine (1)] Future Scheduled Hepatitis C screening [facility] Test (procedure) [code = of Medic ine 208359082] Future Scheduled [facility] immunodeficiency [facility] Test virus screening of Medicine (procedure) [code = 878206271] Future Scheduled Screening for malignant [facility] Test neoplasm of cervix of Medici ne (procedure) [code = 949258961] Future Scheduled ZOSTER VACCINE (1 of 2) [facility] [employer] Test [code = ZOSTER VACCINE of Me dicine (1 of 2)] Future Scheduled TETANUS SHOT (ADULT) [employer] Test [code = TETANUS SHOT of Medi cine (ADULT)] Future Scheduled FLU VACCINE > 6 MONTHS [employer] Test [code = FLU VACCINE > 6 of M edicine MONTHS] Encounters Start End Encounter Admission Attending Care Care Encounter Source Date/Time Date/Time Type Type Clinicians Facility Department ID 2021-03-16 Emergency [facility] [id number] NPI:183 14:51:01 [id number] Emergency [facility] [id number] NPI:183 14:37:31 [id number] Outpatient BERNARDINO [facility] Surgery [id number] [facility] 15:07:40 ED 2020-11-15 2020-11-15 Office ELLY Lebron [id number] [place] [address] 13:08:28 16:02:36 Visit Ed B [facility]BUL[facility] [id number] College Y 0.2.7.2.686 of [id number] [facility] 600 e 2020-09-27 2020-09-27 Office ELLY Lebron [id number] [place] [address] 10:50:46 11:36:15 Visit Ed B AMBULATOR 350.1.13.21 College Y 0.2.7.2.686 of [id number] [facility] 600 e 2020-09-24 2020-09-24 [id number] [id number] NPI:118 00:00:00 00:00:00 Rosemary [id number] [address] 2020-09-23 2020-09-23 [facility] [id number] 9 [id number] NPI:118 00:00:00 00:00:00 Rosemary [id number] 47 Gilda 2020-09-22 2020-09-22 [facility] [id number] NPI:118 00:00:00 00:00:00 Rosemary [id number] 47 Gilda 2020-09-21 2020-09-21 [facility] [id number] NPI:118 06:02:00 14:50:00 Encounter Ed [id number] Andres 2020-09-21 2020-09-21 Surgery [facility] [id number] NPI:118 11:00:00 14:30:00 Ed [id number] Andres 2020-09-21 2020-09-21 Anesthesia Robbin Reynoso [facility] [id number] NPI:118 09:51:00 13:14:00 Event Zeinab Pardo [id number] 2020-09-21 2020-09-21 Travel [facility] [id number] NPI:118 00:00:00 00:00:00 [id number] 2020-09-19 2020-09-19 [id number] NPI:118 00:00:00 00:00:00 Only Ed [id number] 47 Andres 2020-09-13 2020-09-13 [facility] [id number] NPI:118 09:00:00 23:59:00 Encounter [id number] 2020-09-13 2020-09-13 Outpatient [facility] [id number] [facility] 00:00:00 00:00:00 2020-08-14 2020-08-14 Outpatient [facility] [id number] [facility] 13:35:49 13:35:49 [employer] 2020-08-14 2020-08-14 Office ELLY Lebron 1.2.840.114 [id number] [facility] 12:59:26 13:19:26 Visit De B AMBULATOR 350.1.13.21 College Y 0.2.7.2.686 of [phone] Medi ruby 600 e 2020-07-24 2020-07-24 [facility] 1.2.840.114 [id number] 14:13:03 23:59:00 Encounter Emelyn L [facility] 350.1.13.10 Surgical 4.2.7.2.686 Specialti [id number] es [address] [place] 2020-07-24 2020-07-24 [facility] 1.2.840.114 [id number] NPI:183 14:13:03 23:59:00 Encounter Emelyn L [facility] 350.1.13.10 [id number] Surgical 4.2.7.2.686 Specialti [phone] es [address] [place] 2020-07-24 2020-07-24 [facility] 1.2.966.159 [id number] 14:11:03 14:52:35 Visit Emelyn [facility] 350.1.13.10 Surgical 4.2.7.2.686 Specialti [phone] es 198 [place] 2020-07-24 2020-07-24 Office [facility] 1.2.864.746 [id number] 6363 NPI:183 14:11:03 14:52:35 Visit Emelyn [facility] 350.1.13.10 [id number] Surgical 4.2.7.2.686 Specialti [id number] es 198 [place] 2020-07-24 2020-07-24 [facility] [id number] 6Q-20 NPI:183 14:15:00 14:15:00 EMELYN [id number] 1 2020-07-24 2020-07-24 [facility] [id number] 67074 NPI:183 14:15:00 14:15:00 EMELYN [id number] 1 2020-02-07 2020-02-07 [facility] 06814 76252 NPI:183 08:00:00 08:00:00 BRIT [id number] 1 2020-01-16 2020-01-17 Emergency Marlen Pond [facility] 1.2.840 .114 [id number] NPI:183 10:51:00 16:50:00 Vincenzo Vivar 350.1.13.10 [id number] [place] 4.2.7.2.686 [place] [id number] 0 2020-01-14 2020-01-14 Emergency Anais [facility] 1.2.322.930 [id number] 1611 NPI:183 04:47:00 06:47:00 Davis Caldwell 350.1.13.10 1 [id number] [place] 4.2.7.2.686 [place] [id number] 084 2019-10-07 2019-10-07 [facility] 1.2.670.580 [id number] NPI:183 00:00:00 00:00:00 Brit Caldwell 350.1.13.10 1 [id number] [place]am[place] 4.2.7.2.686 [facility] [phone] [facility] 134 [facility] 2019-02-04 2019-02-04 Office Farzad AKBABITA 1.2.700.961 [id number] NPI:183 08:19:51 08:42:41 Visit Brit Caldwell 350.1.13.10 1 [id number] [place] 4.2.7.2.686 Professio [phone] [facility] 134 [facility] Results Test Description Test Time Test Comments Results Result Comments Source VITAMIN D, 25-OH 2020-01-17 21:48:00 Test Item Value Reference Range Interpretation Comme nts VIT D 25OH (test code = 28852-3) 28 ng/mL 25-80 CHRIST (test code = CHRIST) Deficiency: <20 ng/mLInsufficiency: 20-24 ng/mLOptimal: 25-80 ng/mL Lab Interpretation (test code = 00611-8) Normal NPI:[id number] 16:02:00 Test Item Value Reference Range Interpretation Comments S. pneumoniae antigen (test code = Negative Negative 7706726518) Lab Interpretation (test code = Normal 22677-7) NPI:[id number] URINARY ANTIGEN [id number] 16:02:00 Test Item Value Reference Range Interpretation Comments Legionella Urinary Negative Negative Antigen (test code = 4672301581) CHRIST (test code = CHRIST) Negative for L. pneumophilia serogroup I antigen in urine suggesting no recent or current infection. Infection due to Legionella cannot be ruled out since other serogroups and species may cause disease. Furthermore, antigens may not be present in urine during early stage of infection, or the level of antigen present in urine may be below the detection limit of the test. Lab Interpretation (test Normal code = 82338-5) NPI:[id number] [id number] 15:33:00 Test Item Value Reference Range Interpretation Comments CRP (test code = 1821713031) 1.0 mg/dL <0.8 H Lab Interpretation (test code = Abnormal 87718-4) NPI:[id number] 12:07:00 Test Item Value Reference Range Interpretation Comments URINE CULTURE (test No aerobic growth (< code = 630-4) 1000 CFU/mL) NPI:[id number] 02:15:00 Test Item Value Reference Range Interpretation Comments Procalcitonin (test 0.03 ng/mL <0.07 code = 7622657137) CHRIST (test code = CHRIST) INTERPRETATION OF PROCALCITONIN RESULTS IN ADULTS >= 18 YEARS OF AGE Initiation and discontinuation of antibiotics on patients with suspected or confirmed Lower Respiratory Tract Infection in Adults >= 18 years of age. + +-------- --------+ + -----+|Procalcitonin |Interpretation ?|Antibiotic ? ? |Considerations ? |ng/mL ? | ?|recommendation | ? + +-------- --------+ + -----+| <0.1 ? | Bacterial ? ? ?| Strongly ? ? ?| ? | ?| infection very | discouraged ? | Overruling: ? | ?| unlikely ? ? ? | ? | ? Clinically unstable ? ? ? + +-------- --------+ + ? High risk for adverse ? ? | <0.25 ?| Bacterial ? ? ?| Discouraged ? | ? outcome ? | ?| infection ? ? ?| ? | ? SEE IMPORTANT NOTE ?| ?| unlikely ? ? ? | ? | ? + +-------- --------+ + -----+| >=0.25 ? ? ? | Bacterial ? ? ?| Encouraged ? ?| ? | ?| infection ? ? ?| ? | ? | ?| likely ? | ? | Consider treatment failure ?+ +------- ---------+ -+ if levels does not decrease | >0.5 ? | Bacterial ? ? ?| Strongly ? ? ?| appropriately ? | ?| infection very | encouraged ? ?| ? | ?| likely ? | ? | ? + +-------- --------+ + -----+ Discontinuation of antibiotics in high-acuity patients with suspected or confirmed sepsis in Adults >= 18 years of age. + +-------- --------+ + -----+|Procalcitonin |Interpretation ?|Antibiotic ? ? |Considerations ? |ng/mL ? | ?|recommendation | ? + +-------- --------+ + -----+| <0.25 ?| Bacterial ? ? ?| Strongly ? ? ?| ? | ?| infection very | discouraged ? | Overruling: ? | ?| unlikely ? ? ? | ? | ? Clinically unstable ? ? ? + +-------- --------+ + ? High risk for adverse ? ? | <0.5 or drop | Bacterial ? ? ?| Discouraged ? | ? outcome ? | >80% from ? ?| infection ? ? ?| ? | ? SEE IMPORTANT NOTE ?| highest PCT ?| unlikely ? ? ? | ? | ? | level ?| ?| ? | ? + +-------- --------+ + -----+| >=0.5 ?| Bacterial ? ? ?| Encouraged ? ?| ? | ?| infection ? ? ?| ? | ? | ?| likely ? | ? | Consider treatment failure ?+ +------- ---------+ -+ if levels does not decrease | >1.0 ? | Bacterial ? ? ?| Strongly ? ? ?| appropriately ? | ?| infection very | encouraged ? ?| ? | ?| likely ? | ? | ? + +-------- --------+ + -----+ Percentage of drop of Procalcitonin calculation for Discontinuation of antibiotics in high-acuity patients with suspected or confirmed sepsis in Adults >= 18 years of age. ? Procalcitonin highest{}-Procalcitonin current{}Delta Procalcitonin = x100% ? Procalcitonin current {} IMPORTANT NOTE: Procalcitonin may be elevated without bacterial infection by physiologic stress related to trauma, santillan, chronic dialysis, metastatic cancer, surgery in the past seven days, malaria, some fungal infections, and some forms of vasculitis. The interpretation algorithm may not apply to patients with immunosuppression (equivalent of >10 mg of prednisone daily), HIV with CD4 cell count < 350 cells/mm3, active malignancy on systemic chemotherapy, solid organ transplant or hematopoietic stem cell transplantation, or hospital acquired pneumonia. Additionally, some clinical trials of procalcitonin have excluded patients with shock requiring vasopressor use, acute respiratory failure requiring mechanical ventilation, or those with known lung abscess/empyema. For further information please refer to:[email or web address] Lab Interpretation Normal (test code = 82271-3) NPI:[id number] CHEST 1 VW [id number] 18:20:03 Hazy bilateral airspace and interstitial opacities are consistent withknown Covid-19 infection. Disclaimer: Generally, the findings on chest imaging in COVID-19 are notspecific, and overlap with otherinfections, including influenza, H1N1,SARS and MERS. According to the Centers for Disease Control (CDC) and recent statement ofthe [employer], viral testing remains the only specificmethod of diagnosis. Confirmation with the viral test is required, even ifradiologic findings are suggestive of COVID-[address]. Preliminary Report Dictated by Resident: Leonila Jordan MD., have reviewed this study and agree with theabove report.EXAM: XR CHEST 1 VW COVID HISTORY: 59 years-old; Female; sob covid + COMPARISON: 10/26/2016 radiograph FINDINGS: Lungs/Pleura: Hazy airspace and interstitial opacities in the right lowerlung zone and the left upper zone lung zone arenoted. There is no pleuraleffusion or pneumothorax. Heart/Mediastinum: The cardiomediastinal silhouette is normal. No acute osseous structure abnormality. [facility], Radiant Results Inft User - 01/16/2020 1:21 PM CDTEXAM:XR CHEST 1 VW COVIDHISTORY: 59 years-old; Female; sob covid + COMPARISON: 10/26/2016 radiographFINDINGS:Lungs/Pleura: Hazy airspace and interstitial opacities in the right lowerlung zone and the left upper zone lung zone are noted. There is no pleuraleffusion or pneumothorax.Heart/Mediastinum: The cardiomediastinal silhouette is normal.No acute osseous structure abnormality.IMPRESSIONHazy bilateral airspace and interstitial opacities are consistent withknown Covid-19 infection.Disclaimer: Generally, the findings on chest imaging in COVID-19 are notspecific, and overlap with other infections, including influenza, H1N1,SARS and MERS.According to the Centers for Disease Control (CDC) and recent statement ofthe [employer], viral testing remains the only specificmethodof diagnosis. Confirmation with the viral test is required, even ifradiologic findings are suggestive of COVID-[address]Preliminary Report Dictated by Resident: Leonila Torres MD., have reviewed this study and agree with theabove report. FERRITIN [id number] 17:30:00 Test Item Value Reference Range Interpretation Comments FERRITIN (test code = 66.4 ng/mL 11-264 8397655571) CHRIST (test code = CHRIST) Biotin has been reported to cause a negative bias, interpret results relative to patient's use of biotin. Lab Interpretation (test Normal code = 34206-2) NPI:[id number] 17:07:00 Test Item Value Reference Range Interpretation Comments APPEARANCE (test code = Clear Clear 8382978155) COLOR (test code = Yellow Yellow 4738319099) PH (test code = 4.8-8.0 6745339172) SP GRAVITY (test code = 1.003-1.030 0712280578) GLU U QUAL (test code = Normal Normal 1542022808) BLOOD (test code = Negative Negative 5499616844) KETONES (test code = 80 mg/dL Negative A 2216138827) PROTEIN (test code = Negative Negative 2887-8) UROBILIN (test code = Normal Normal 1474150723) BILIRUBIN (test code = Negative Negative 7231479448) NITRITE (test code = Negative Negative 1814454957) LEUK JOSE (test code = Negative Negative 7238973545) RBC/HPF (test code = See_Comment [Autom ated message] 5608267054) The system Tittat generated this result transmitted ref erence range: 0 - 3 HP F. The reference range was not used to int erpret this result as normal/abnormal . WBC/HPF (test code = See_Comment [Autom ated message] 5066294289) The system Tittat generated this result transmitted ref erence range: 0 - 5 HP F. The reference range was not used to int erpret this result as normal/abnormal . BACTERIA (test code = Few Negative A 3865264541) MUCOUS (test code = Slight Negative LPF A 6932620167) SQ EPITH (test code = HPF 0552343105) Lab Interpretation (test Abnormal code = 75683-2) NPI:[id number] [id number] 17:07:00 Test Item Value Reference Range Interpretation Comments TROPONIN I (test <0.012 See_Comment [Automated code = 5819284232) message] The system which generated this result transmitted reference range : <=0.034 ng/mL. The reference range was not used to interpr et this result as normal/abnormal . CHRIST (test code = Equal or Less than CHRIST) 0.034 ng/ml---Normal ?Note: Cardiac troponin begins to rise 3-4 hours after the onset of ischemia. Repeat in 4-6 hours if the sample was drawn within 3-4 hours of the onset of the symptom and found normal. Between 0.035 and 0.120 ng/mL--- Borderline. Questionable myocardial injury or necrosis ? ?Note: Serial measurement may be necessary to confirm or exclude the diagnosis of myocardial injury or necrosis; Clinical correlation (symptoms, EKGs, imaging studies, and others) required; Repeat in 4-6 hours if clinically indicated. ? Equal or Higher than 0.121 ng/mL---Abnormal. Myocardial Injury or Necrosis Likely ? Biotin has been reported to cause a negative bias, interpret results relative to patient's use of biotin. ? Lab Interpretation Normal (test code = 94583-4) NPI:[id number] [id number] 17:04:00 Test Item Value Reference Range Interpretation Comments NT-proBNP (test code 51 pg/mL See_Comment [Autom ated = 2788691340) message] The system which generated this result transmitted reference range : <=125. The reference range was not used to interpret this result as normal/abnormal . CHRIST (test code = CHRIST) Biotin has been reported to cause a negative bias, interpret results relative to patient's use of biotin. Lab Interpretation Normal (test code = 27392-6) NPI:[id number] 17:01:00 Test Item Value Reference Interpretation Comments Range D-DIMER (test code = See_Comment [Autom ated 2527537844) message] The system which generated this result transmitted reference range : <0.41 ?g/mL (FEU). The reference range was not used to interpret this result as normal/abnormal . CHRIST (test code = This test may be CHRIST) used in conjunction with a clinical pretest probability (PTP) assessment model to exclude venous thromboembolism (VTE) in patients suspected of deep venous thrombosis (DVT) and pulmonary embolism (PE) A D-Dimer value less than 0.50 ?g/ml (FEU) has a negative predicative value of [...] the clinical context, in forming a diagnosis. Lab Interpretation Normal (test code = 26799-5) NPI:[id number] (ID NOW RAPID TESTING)2020-01-16 16:59:00 Test Item Value Reference Range Interpretation Comments SARS-CoV-2 Rapid ID NOW Positive Not Detected A (test code = 55586-7) CHRIST (test code = CHRIST) ID NOW COVID-19 Assay is an isothermal nucleic acid amplification test intended for the qualitative detection of nucleic acid from SARS-CoV-2 viral RNA in nasopharyngeal (EDGE GLUER) specimens. It is used under Emergency Use Authorization (EUA) by FDA. The limit of detection (LOD) of the assay is 125 Genome Equivalents/mL. A positive result is indicative of the presence of SARS-CoV-2 RNA. ?Clinical correlation with patient history and other diagnostic [...] for repeat patient testing if clinically indicated. Lab Interpretation Abnormal (test code = 42437-7) NPI:[id number] Metabolic Panel (NA, K, CL, CO2, GLUCOSE, BUN, CREATININE, CA)2020-01-16 16:55:00 Test Item Value Reference Range Interpretation Comments NA (test code = 134 mmol/L 135-145 L 0061115964) K (test code = 3.9 mmol/L 3.5-5 9596685383) CL (test code = 102 mmol/L 98-108 2003945249) CO2 TOTAL (test code = 25 mmol/L 23-31 3708291729) AGAP (test code = 2-16 5721160475) BUN (test code = 11 mg/dL 7-23 7810103211) GLUCOSE (test code = 100 mg/dL 70-110 3264378925) CREATININE (test code = 0.62 mg/dL 0.5-1.04 9868677313) CALCIUM (test code = 8.4 mg/dL 8.6-10.6 L 3152604786) eGFR Calculation mL/min/1.73m2 (Non-) (test code = 8466516183) eGFR Calculation mL/min/1.73m2 () (test code = 3197996239) CHRIST (test code = CHRIST) Association of Glomerular Filtration Rate (GFR) and Staging of Kidney Disease* + --+ --+ ------+| GFR (mL/min/1.73 m2) ?| With Kidney Damage ?| ?Without Kidney Damage+ --------+ --------+ +| ?>90 ?| ?Stage one ?| ? Normal ?+ ---+ ---+ -------+| ?60-89 ?| ?Stage two ?| ? Decreased GFR ? + --+ --+ ------+| ?30-59 ?| ?Stage three ?| ? Stage three ? + --+ --+ ------+| ?15-29 ?| ?Stage four ? | ? Stage four ?+ ---+ ---+ -------+| ?<15 (or dialysis) ? ?| ?Stage five ? | ? Stage five ?+ ---+ ---+ -------+ *Each stage assumes the associated GFR level has been in effect for at least three months. ?Stages 1 to 5, with or without kidney disease, indicate chronic kidney disease. Notes: Determination of stages one and two (with eGFR >59mL/min/1.73 m2) requires estimation of kidney damage for at least three months as defined by structural or functional abnormalities of the kidney, manifested by either:Pathological abnormalities or Markers of kidney damage (including abnormalities in the composition of the blood or urine or abnormalities in imaging tests). Lab Interpretation Abnormal (test code = 09718-7) NPI:[id number] Function Panel (ALB, T.PRO, BILI T, BU/BC, ALT, AST, ALK PHOS)2020-01-16 16:55:00 Test Item Value Reference Range Interpretation Comments TOTAL BILI (test code = 9226124153) 0.5 mg/dL 0.1-1.1 BILI UNCON (test code = 7218867296) 0.6 mg/dL 0.1-1.1 BILI CONJ (test code = 6305444024) 0.0 mg/dL 0-0.3 T PROTEIN (test code = 3195527896) 7.2 g/dL 6.3-8.2 ALBUMIN (test code = 0825276692) 4.3 g/dL 3.5-5 ALK PHOS (test code = 6955447754) 81 U/L 34-122 ALTv (test code = 1742-6) 26 U/L 5-35 AST(SGOT) (test code = 9564073078) 36 U/L 13-40 Lab Interpretation (test code = Normal 39222-1) NPI:[id number] [id number] 16:55:00 Test Item Value Reference Range Interpretation Comments LDH (test code = 2488531200) 518 U/L 300-600 Lab Interpretation (test code = Normal 76898-5) NPI:[id number] 16:53:00 Test Item Value Reference Range Interpretation Comments Fibrinogen (test code = 8558817345) 380 mg/dL 214-470 Lab Interpretation (test code = Normal 59805-0) NPI:[id number] 16:53:00 Test Item Value Reference Range Interpretation Comments APTT Patient (test See_Comment [Automat ed code = 3173-2) message] The system which generated this result transmitted reference range : 23 - 38 Seconds . The reference range was not used to interpr et this result as normal/abnormal . CHRIST (test code = CHRIST) The [facility] patient population mean normal value for aPTT is 30 seconds. Lab Interpretation Normal (test code = 03613-7) NPI:[id number] Time (PT) / [id number] 16:51:00 Test Item Value Reference Range Interpretation Comments PROTIME PATIENT (test See_Comment [Auto mated message] code = 5964-2) The system wh ich generated this result transmitted ref erence range: 12.0 - 1 4.7 Seconds. The re ference range was not u sed to interpret this result as normal/abnor mal. INR (test code = 6301-6) Nor mal INR <1.1; Warfarin Therap eutic range 2.0 to 3. 0 or 2.5 to 3.5, dep ending upon the indica tions. Lab Interpretation (test Normal code = 67482-2) NPI:[id number] with [id number] 16:45:00 Test Item Value Reference Range Interpretation Comments WBC (test code = See_Comment L [Automated 6390-2) message] The sy stem which generated this result transmitted reference range : 4.30 - 11.10 10*3/?L. The reference range was not used to interpret this result as normal/abnormal . RBC (test code = See_Comment [Automated 189-8) message] The sy stem which generated this result transmitted reference range : 3.93 - 5.25 10*6/?L. The reference range was not used to interpret this result as normal/abnormal . HGB (test code = 13.4 g/dL 11.6-15 718-7) HCT (test code = 38.7 % 35.7-45.2 4544-3) MCV (test code = 86.2 fL 80.6-95.5 787-2) MCH (test code = 29.8 pg 25.9-32.8 785-6) MCHC (test code = 34.6 g/dL 31.6-35.1 786-4) RDW-SD (test code = 39.1 fL 39-49.9 18598-7) RDW-CV (test code = 12.4 % 12-15.5 788-0) PLT (test code = See_Comment L [Automated 777-3) message] The sy stem which generated this result transmitted reference range : 166 - 358 10*3/ ?L. The reference r camryn was not used to interpret this result as normal/abnormal . MPV (test code = 11.2 fL 9.5-12.9 44529-4) IPF % (test code = 4.0 % 1.3-7.7 Platelet count 9081801756) measured by fluorescence method. NRBC/100 WBC (test See_Comment [Automat ed code = 5095120658) message] The system which generated this result transmitted reference range : 0.0 - 10.0 /100 WBCs. The refer ence range was not u sed to interpret th is result as normal/abnormal . NRBC x10^3 (test code <0.01 See_Comment [Auto mated = 4780129408) message] The s ystem which generated this result transmitted reference range : 10*3/?L. The reference range was not used to interpret this result as normal/abnormal . GRAN MAT (NEUT) % 67.5 % (test code = 770-8) IMM GRAN % (test code 0.60 % = 3224020401) LYMPH % (test code = 22.2 % 736-9) MONO % (test code = 9.4 % 5905-5) EOS % (test code = 0.0 % 713-8) BASO % (test code = 0.3 % 706-2) GRAN MAT x10^3(ANC) 2.37 10*3/uL 1.88-7.09 (test code = 3164299083) IMM GRAN x10^3 (test <0.03 0-0.06 code = 2381983809) LYMPH x10^3 (test code 0.78 10*3/uL 1.32-3.29 L = 731-0) MONO x10^3 (test code 0.33 10*3/uL 0.33-0.92 = 742-7) EOS x10^3 (test code = <0.03 0.03-0.39 L 711-2) BASO x10^3 (test code <0.03 0.01-0.07 = 704-7) Lab Interpretation Abnormal (test code = 38666-0) NPI:[id number] Acid Whole [id number] 16:34:00 Test Item Value Reference Range Interpretation Comments LACTIC ACID (test code = 1.02 mmol/L 0.3-2.6 7388690291) Lab Interpretation (test code = Normal 81556-6) NPI:[id number] CARE VENOUS BLOOD [id number] 16:34:00 Test Item Value Reference Range Interpretation Comments PH (test code = 7.32-7.42 H 0834259687) PCO2 EDDIE (test code = See_Comment L [Auto mated message] 9719873100) The system Tittat generated this result transmitted ref erence range: 41 - 51 mmHg. The reference r camryn was not used to interpret this result as normal/abnor mal. PO2 EDDIE (test code = See_Comment HH [Autom ated message] 3378233916) The system Tittat generated this result transmitted ref erence range: 25 - 40 mmHg. The reference r camryn was not used to interpret this result as normal/abnor mal. HCO3 EDDIE (test code = See_Comment [Auto mated message] 3588906655) The system Tittat generated this result transmitted ref erence range: 24 - 28 mEq/L. The reference r camryn was not used to interpret this result as normal/abnor mal. AC VBE(BEAKER) (test mEq/L code = 6785845576) Lab Interpretation (test Abnormal code = 84199-2) NPI:[id number] 10:25:00 Test Item Value Reference Range Interpretation Comments APPEARANCE (test code = Clear Clear 1214677333) COLOR (test code = Yellow Yellow 3783737946) PH (test code = 4.8-8.0 3263926714) SP GRAVITY (test code = 1.003-1.030 6767367161) GLU U QUAL (test code = Normal Normal 3273023912) BLOOD (test code = Negative Negative 4583281973) KETONES (test code = 5 mg/dL Negative A 5724494989) PROTEIN (test code = Negative Negative 2887-8) UROBILIN (test code = Normal Normal 3318588843) BILIRUBIN (test code = Negative Negative 9982312822) NITRITE (test code = Negative Negative 0096580665) LEUK JOSE (test code = Negative Negative 5355990174) RBC/HPF (test code = See_Comment [Autom ated message] 4577635917) The system Tittat generated this result transmitted ref erence range: 0 - 3 HP F. The reference range was not used to int erpret this result as normal/abnormal . WBC/HPF (test code = See_Comment [Autom ated message] 7202417269) The system Tittat generated this result transmitted ref erence range: 0 - 5 HP F. The reference range was not used to int erpret this result as normal/abnormal . BACTERIA (test code = Negative Negative 6777920811) MUCOUS (test code = Slight Negative LPF A 8820143522) SQ EPITH (test code = HPF 8085420903) Lab Interpretation (test Abnormal code = 70367-0) NPI:[id number] Metabolic [id number] 10:23:00 Test Item Value Reference Range Interpretation Comments NA (test code = 136 mmol/L 135-145 4880918836) K (test code = 4.1 mmol/L 3.5-5 9635553910) CL (test code = 104 mmol/L 98-108 7167097703) CO2 TOTAL (test code = 26 mmol/L 23-31 8965237772) AGAP (test code = 2-16 7309034630) BUN (test code = 11 mg/dL 7-23 8207781588) GLUCOSE (test code = 100 mg/dL 70-110 5878676762) CREATININE (test code 0.70 mg/dL 0.5-1.04 = 7510308832) TOTAL BILI (test code 0.6 mg/dL 0.1-1.1 = 1061632789) CALCIUM (test code = 8.6 mg/dL 8.6-10.6 1641393960) T PROTEIN (test code = 7.3 g/dL 6.3-8.2 5951903312) ALBUMIN (test code = 4.2 g/dL 3.5-5 2058816774) ALK PHOS (test code = 77 U/L 34-122 9207967605) ALTv (test code = 34 U/L 5-35 1742-6) AST(SGOT) (test code = 37 U/L 13-40 2943140380) eGFR Calculation mL/min/1.73m2 (Non-) (test code = 6873214702) eGFR Calculation mL/min/1.73m2 () (test code = 1302405781) CHRIST (test code = CHRIST) Association of Glomerular Filtration Rate (GFR) and Staging of Kidney Disease* + -+ + ---+| GFR (mL/min/1.73 m2) ?| With Kidney Damage ?| ?Without Kidney Damage+ -------+ ------+ ---------+| ?>90 ?| ?Stage one ?| ? Normal ?+ --+ -+ ----+| ?60-89 ?| ?Stage two ?| ? Decreased GFR ? + -+ + ---+| ?30-59 ?| ?Stage three ?| ? Stage three ? + -+ + ---+| ?15-29 ?| ?Stage four ? | ? Stage four ?+ --+ -+ ----+| ?<15 (or dialysis) ? ?| ?Stage five ? | ? Stage five ?+ --+ -+ ----+ *Each stage assumes the associated GFR level has been in effect for at least three months. ?Stages 1 to 5, with or without kidney disease, indicate chronic kidney disease. Notes: Determination of stages one and two (with eGFR >59mL/min/1.73 m2) requires estimation of kidney damage for at least three months as defined by structural or functional abnormalities of the kidney, manifested by either:Pathological abnormalities or Markers of kidney damage (including abnormalities in the composition of the blood or urine or abnormalities in imaging tests). NPI:[id number], [id number] 10:23:00 Test Item Value Reference Range Interpretation Comments LIPASE (test code = 4036568061) 242 U/L 0-220 H Lab Interpretation (test code = Abnormal 56234-9) NPI:[id number] with [id number] 10:12:00 Test Item Value Reference Range Interpretation Comments WBC (test code = See_Comment L [Automated 6690-2) message] The sy stem which generated this result transmitted reference range : 4.30 - 11.10 10*3/?L. The reference range was not used to interpret this result as normal/abnormal . RBC (test code = See_Comment [Automated 789-8) message] The sy stem which generated this result transmitted reference range : 3.93 - 5.25 10*6/?L. The reference range was not used to interpret this result as normal/abnormal . HGB (test code = 13.5 g/dL 11.6-15 718-7) HCT (test code = 40.8 % 35.7-45.2 4544-3) MCV (test code = 87.7 fL 80.6-95.5 787-2) MCH (test code = 29.0 pg 25.9-32.8 785-6) MCHC (test code = 33.1 g/dL 31.6-35.1 786-4) RDW-SD (test code = 40.4 fL 39-49.9 23021-5) RDW-CV (test code = 12.4 % 12-15.5 788-0) PLT (test code = See_Comment L [Automated 777-3) message] The sy stem which generated this result transmitted reference range : 166 - 358 10*3/ ?L. The reference r camryn was not used to interpret this result as normal/abnormal . MPV (test code = 10.9 fL 9.5-12.9 70171-5) NRBC/100 WBC (test See_Comment [Automat ed code = 4056153124) message] The system which generated this result transmitted reference range : 0.0 - 10.0 /100 WBCs. The refer ence range was not u sed to interpret th is result as normal/abnormal . NRBC x10^3 (test code <0.01 See_Comment [Auto mated = 6866741658) message] The s ystem which generated this result transmitted reference range : 10*3/?L. The reference range was not used to interpret this result as normal/abnormal . GRAN MAT (NEUT) % 56.1 % (test code = 770-8) IMM GRAN % (test code 0.50 % = 9438194797) LYMPH % (test code = 29.4 % 736-9) MONO % (test code = 13.1 % 5905-5) EOS % (test code = 0.7 % 713-8) BASO % (test code = 0.2 % 706-2) GRAN MAT x10^3(ANC) 2.31 10*3/uL 1.88-7.09 (test code = 5375561474) IMM GRAN x10^3 (test <0.03 0-0.06 code = 1032230423) LYMPH x10^3 (test code 1.21 10*3/uL 1.32-3.29 L = 731-0) MONO x10^3 (test code 0.54 10*3/uL 0.33-0.92 = 742-7) EOS x10^3 (test code = 0.03 10*3/uL 0.03-0.39 711-2) BASO x10^3 (test code <0.03 0.01-0.07 = 704-7) Lab Interpretation Abnormal (test code = 80356-5)
[2021-09-26 00:49] LABS: Absolute Lymphocytes (CBC) 2.2 K/uL (0.7-4.9); Hematocrit 36.1 % (36.0-45.0); Lymphocytes % 29.1 % (15.3-44.8)
[2021-09-26 01:09] LABS: ALT/SGPT 20 U/L (12-78); AST/SGOT 16 U/L (15-37); Albumin 3.7 g/dL (3.4-5.0); Alkaline Phosphatase 107 U/L (45-117); BUN Blood Urea Nitrogen 11 mg/dL (7-18); Bicarbonate 27 mmol/L (21-32); Bilirubin Total 0.3 mg/dL (0.2-1.0); Glomerular Filtration Rate 64 ml/min (=/>90); Glucose Level 110 mg/dL (74-106); Magnesium 2.2 mg/dL (1.8-2.4); NT PRO-BNP 106 pg/mL (<125); Potassium 3.5 mmol/L (3.5-5.1); Protein, Total 7.1 g/dL (6.4-8.2); Sodium Level 142 mmol/L (136-145); Troponin High Sensitivity 5.5 pg/mL (<58.9)
[2021-09-26 01:37] LABS: Bilirubin Direct < 0.1 mg/dL (0-0.2)
[2021-09-26] MEDS ORDERED: HYDROCODONE/APAP 10/325 TAB ONE (01:51)
--- NOTE | 2021-09-26 02:06 | EDPHYS ---
Physician Documentation [facility] Name: Marias Baker Age: 61 yrs Sex: Female : 1960 Arrival Date: 09/25/2021 Time: 23:17 Bed 18 Private MD: ED Physician Ashish De Los Santos HPI: 09/26 02:01 This 61 yrs old Female presents to ER via Ambulatory with complaints of Shortness Of rn Breath, chest pain, palpitations. 02:01 The patient has shortness of breath at rest. Onset: The symptoms/episode began/occurred rn 5 day(s) ago. Duration: The symptoms are intermittent. The patient's shortness of breath is aggravated by nothing, is alleviated by nothing. Severity of symptoms: At their worst the symptoms were moderate in the emergency department the symptoms have improved. The patient has not experienced similar symptoms in the past. The patient has not recently seen a physician. Pt reports several episodes of chest pain, sob, palpitations, headache, each episode lasts approx 10 min to 1 hour, no changes in medication recently, no drug use. No trauma or head injury. Reports checks BP regularly and no gross changes recently. No abd pain/vomiting/diarrhea. No focal weakness/numbness. . Historical: - Allergies: 01:38 Adhesives; ag7 01:38 Codeine; ag7 01:38 diphenhydramine HCl; irritability; ag7 - PMHx: 01:38 "small blood clot somewhere"; CVA; ag7 - Immunization history:: Adult Immunizations up to date, Client reports having NOT received the Covid vaccine. Flu vaccine is not up to date. Patient has never been vaccinated. - Social history:: Smoking status: Patient denies any tobacco usage or history of. - Family history:: not pertinent. - Hospitalizations: : No recent hospitalization is reported. ROS: 02:01 Constitutional: Negative for fever, chills, and weight loss, Eyes: Negative for injury, rn pain, redness, and discharge, Neck: Negative for injury, pain, and swelling, Cardiovascular: Negative for edema Respiratory: Negative for cough, wheezing, and pleuritic chest pain, Abdomen/GI: Negative for abdominal pain, nausea, vomiting, diarrhea, and constipation, Back: Negative for injury and pain, MS/Extremity: Negative for injury and deformity, Skin: Negative for injury, rash, and discoloration, Neuro: Negative for weakness, numbness, tingling, and seizure. Exam: 02:01 Constitutional: This is a well developed, well nourished patient who is awake, alert, rn and in no acute distress. Head/Face: Normocephalic, atraumatic. Eyes: Periorbital areas with no swelling, redness, or edema. Cardiovascular: Regular rate and rhythm. No pulse deficits. Respiratory: No increased work of breathing, no retractions or nasal flaring. Abdomen/GI: Soft, non-tender Skin: Warm, dry MS/ Extremity: Pulses equal, no cyanosis. Neuro: Awake and alert, GCS 15, oriented to person, place, time, and situation. Cranial nerves II-XII grossly intact. Motor strength 5/5 in all extremities. Sensory grossly intact. Cerebellar exam normal. 02:01 ECG was reviewed by the Attending Physician. rn Vital Signs: 00:14 BP 139 / 82; Pulse 76; Resp 17 S; Temp 98.9(T); Pulse Ox 100% ; Weight 74.84 kg; Height ag7 5 ft. 3 in. (160.02 cm); Pain 7/10; 01:00 BP 146 / 84; Pulse 76; Resp 16 S; Pulse Ox 93% ; Pain 8/10; ag7 02:00 BP 138 / 82; Pulse 66; Resp 17 S; Pulse Ox 93% ; Pain 8/10; ag7 02:30 Pain 5/10; ag7 03:00 BP 128 / 73; Pulse 68; Resp 15 S; Pulse Ox 95% ; Pain 5/10; ag7 00:14 Body Mass Index 29.23 (74.84 kg, 160.02 cm) [facility] MDM: 09/25 23:41 Patient medically screened. rn 09/26 02:01 Differential diagnosis: Anxiety Reaction Myocardial Infarction Pneumothorax pulmonary rn edema, Pulmonary Embolism arrhythmia. Data reviewed: vital signs, nurses notes, lab test result(s), EKG, radiologic studies, CT scan, plain films, and as a result, I will admit patient. Counseling: I had a detailed discussion with the patient and/or guardian regarding: the historical points, exam findings, and any diagnostic results supporting the discharge/admit diagnosis, lab results, radiology results, the need for further work-up and treatment in the hospital. Response to treatment: the patient's symptoms have mildly improved after treatment, and as a result, I will admit patient. Admission orders: after a detailed discussion of the patient's condition and case, the admit orders are written by me. 09/25 23:59 Order name: Basic Metabolic Panel; Complete Time: :44 rn 09/25 23:59 Order name: CBC with Diff; Complete Time: : rn 09/25 23:59 Order name: D-Dimer; Complete Time: : rn 09/25 23:59 Order name: LFT's; Complete Time: : rn 09/25 23:59 Order name: Magnesium; Complete Time: : rn 09/25 23:59 Order name: NT PRO-BNP; Complete Time: rn 09/25 23:59 Order name: PT-INR; Complete Time: : rn 09/25 23:59 Order name: Troponin HS; Complete Time: : rn 09/25 23:59 Order name: TSH; Complete Time: rn 09/25 23:59 Order name: T4 Free; Complete Time: : rn 09/26 01:19 Order name: UDS; Complete Time: 05:01 la1 09/26 01:52 Order name: COVID-19 SARS RT PCR (Document "Date of Onset" if Symptomatic); Complete la1 Time: 05:09/26 03:10 Order name: Urine Dipstick-Ancillary; Complete Time: 05:01 EDMS 09/26 05:48 Order name: Troponin High Sensitivity EDOK 09/25 23:59 Order name: XRAY Chest (1 view) rn 09/25 23:59 Order name: EKG; Complete Time: 00:00 09/25 23:59 Order name: Cardiac monitoring; Complete Time: 00:33 09/25 23:59 Order name: EKG - Nurse/Tech; Complete Time: 00:33 09/25 23:59 Order name: IV Saline Lock; Complete Time: 00:33 rn 09/25 23:59 Order name: Labs collected and sent; Complete Time: 00:33 rn 09/25 23:59 Order name: O2 Per Protocol; Complete Time: 00:07 rn 09/25 23:59 Order name: O2 Sat Monitoring; Complete Time: 00:07 rn 09/25 23:59 Order name: CT Head Brain wo Cont rn 09/26 05:48 Order name: Lipid Profile EDMS 09/26 09:36 Order name: MRI EDOK 09/26 11:37 Order name: Troponin High Sensitivity EDOK EC:01 Rate is 73 beats/min. Rhythm is regular. QRS [place] is Normal. RI interval is normal. QRS rn interval is normal. QT interval is normal. No Q waves. T waves are Normal. No ST changes noted. Clinical impression: Normal ECG. Interpreted by me. Reviewed by me. Administered Medications: 01:58 Drug: [place] (HYDROcodone-acetaminophen) 10 mg-325 mg 1 tabs {Note: RASS 0.} Route: PO; ag7 02:30 Follow up: Pain 09/25 Adult; Response: No adverse reaction ag7 03:00 Drug: KLONopin (clonazePAM) 0.5 mg Route: PO; ag7 03:21 Follow up: Response: No adverse reaction ag7 Disposition Summary: 09/26/21 02:05 Hospitalization Ordered Hospitalization Status: Observation rn Provider: Frank De Los Santos rn Condition: Stable rn Problem: new rn Symptoms: have improved rn Bed/Room Type: Standard rn Location: [facility] ER HOLD(09/26/21 13:39) Room Assignment: (09/26/21 13:39) Diagnosis - Chest pain, unspecified rn - Dyspnea, unspecified rn - Palpitations rn Forms: - Medication Reconciliation Form rn - SBAR form rn Signatures: Dispatcher [employer] [facility] Kamini Price Maral Be RN RN Ashish De Los Santos MD MD rn Smirch, Shelby, RN RN Greg Meléndez, PLASMA SPECIALIST-C PLASMA SPECIALIST-Cla1 Sheri Smith RN RN ag7 Corrections: (The following items were deleted from the chart) 02:24 02:05 Telemetry/MedSurg (observation) rn mw 02:24 02:05 rn roque 10:55 02:24 [facility] ER HOLD mw 10:55 02:24 ERHOLD- mw bd 11:34 10:55 204 bd bd 11:55 11:34 bd ss 13:39 10:55 Telemetry/MedSurg (observation) bd ss 13:39 11:55 204 ss ss
--- NOTE | 2021-09-26 02:06 | ER ---
Nurse's Notes [facility] Name: Marisa Baker Age: 61 yrs Sex: Female : 1960 Arrival Date: 09/25/2021 Time: 23:17 Bed 18 Private MD: Diagnosis: Chest pain, unspecified;Dyspnea, unspecified;Palpitations Presentation: 09/26 00:14 Chief complaint: Patient states: Patient verbalize c/o confusion, headache, dizziness, ag7 shortness of breath, and heartbeat in head that started six days ago. Coronavirus screen: Client denies travel out of the [place] in the last 14 days. At this time, the client does not indicate any symptoms associated with coronavirus-19. Ebola Screen: Patient negative for fever greater than or equal to 101.5 degrees Fahrenheit, and additional compatible Ebola Virus Disease symptoms Patient denies exposure to infectious person. Patient denies travel to an Ebola-affected area in the 21 days before illness onset. Initial Sepsis Screen: Does the patient meet any 2 criteria? No. Patient's initial sepsis screen is negative. Does the patient have a suspected source of infection? No. Patient's initial sepsis screen is negative. Risk Assessment: Do you want to hurt yourself or someone else? Patient reports no desire to harm self or others. Onset of symptoms was September 21, 2021. 00:14 Method Of Arrival: Ambulatory ag7 00:14 Acuity: YESSI 2 ag7 Triage Assessment: 00:14 General: Appears in no apparent distress. Behavior is calm, cooperative, appropriate ag7 for age. Pain: Complains of pain in face Pain does not radiate. Pain currently is 7 out of 10 on a pain scale. Quality of pain is described as aching, pressure, Pain began suddenly, Is continuous, Alleviated by nothing. Respiratory: Reports shortness of breath at rest Onset: The symptoms/episode began/occurred gradually, the patient has mild shortness of breath. Historical: - Allergies: 01:38 Adhesives; ag7 01:38 Codeine; ag7 01:38 diphenhydramine HCl; irritability; ag7 - PMHx: 01:38 "small blood clot somewhere"; CVA; ag7 - Immunization history:: Adult Immunizations up to date, Client reports having NOT received the Covid vaccine. Flu vaccine is not up to date. Patient has never been vaccinated. - Social history:: Smoking status: Patient denies any tobacco usage or history of. - Family history:: not pertinent. - Hospitalizations: : No recent hospitalization is reported. Screenin:14 Abuse screen: Denies threats or abuse. Nutritional screening: No deficits noted. ag7 Tuberculosis screening: No symptoms or risk factors identified. Fall Risk No fall in past 12 months (0 pts). No secondary diagnosis (0 pts). No IV (0 pts). Ambulatory Aid- None/Bed Rest/Nurse Assist (0 pts). Gait- Normal/Bed Rest/Wheelchair (0 pts) Mental Status- Oriented to own ability (0 pts). Total Obrien Fall Scale indicates No Risk (0-24 pts). Assessment: 00:14 General: Appears in no apparent distress. Behavior is calm, cooperative, appropriate ag7 for age. Pain: Complains of pain in head Pain does not radiate. Pain currently is 7 out of 10 on a pain scale. Quality of pain is described as aching, pressure, Pain began suddenly, Is continuous, Alleviated by nothing. Neuro: Level of Consciousness is awake, alert, obeys commands, Oriented to Appropriate for age. Cardiovascular: Rhythm is regular. Respiratory: Airway is patent Respiratory effort is even, unlabored, Breath sounds are clear bilaterally. 01:15 Reassessment: Patient and/or family updated on plan of care and expected duration. Pain ag7 level reassessed. Patient is alert, oriented x 3, equal unlabored respirations, skin warm/dry/pink. Patient states feeling better. 02:15 Reassessment: No changes from previously documented assessment. ag7 03:22 Reassessment: Patient and/or family updated on plan of care and expected duration. Pain ag7 level reassessed. Patient is alert, oriented x 3, equal unlabored respirations, skin warm/dry/pink. Patient states symptoms have improved. Vital Signs: 00:14 BP 139 / 82; Pulse 76; Resp 17 S; Temp 98.9(T); Pulse Ox 100% ; Weight 74.84 kg; Height ag7 5 ft. 3 in. (160.02 cm); Pain 7/10; 01:00 BP 146 / 84; Pulse 76; Resp 16 S; Pulse Ox 93% ; Pain 8/10; ag7 02:00 BP 138 / 82; Pulse 66; Resp 17 S; Pulse Ox 93% ; Pain 8/10; ag7 02:30 Pain 5/10; ag7 03:00 BP 128 / 73; Pulse 68; Resp 15 S; Pulse Ox 95% ; Pain 5/10; ag7 00:14 Body Mass Index 29.23 (74.84 kg, 160.02 cm) ag7 ED Course: 09/25 23:17 Patient arrived in ED. bp1 23:41 Ashish De Los Santos MD is Attending Physician. rn 09/26 00:07 Sheri Smith, AMY is Primary Nurse. ag7 00:18 XRAY Chest (1 view) In Process Unspecified. EDMS 00:53 CT Head Brain wo Cont In Process Unspecified. EDMS 01:38 Triage completed. ag7 02:05 Frank De Los Santos MD is Hospitalizing Provider. rn 02:14 Patient has correct armband on for positive identification. ag7 03:07 COVID-19 SARS RT PCR (Document "Date of Onset" if Symptomatic) Sent. ag7 Administered Medications: 01:58 Drug: [place] (HYDROcodone-acetaminophen) 10 mg-325 mg 1 tabs {Note: RASS 0.} Route: PO; ag7 02:30 Follow up: Pain 5/10 Adult; Response: No adverse reaction ag7 03:00 Drug: KLONopin (clonazePAM) 0.5 mg Route: PO; ag7 03:21 Follow up: Response: No adverse reaction ag7 Outcome: 02:05 Decision to Hospitalize by Provider. rn 15:44 Patient left the ED. 6 Signatures: Dispatcher [employer] EDND Ashish De Los Santos MD MD rn [place], Brittany bp1 Hastedt, Jennifer, RN RN jh6 Sheri Smith, AMY RN 7
--- NOTE | 2021-09-26 02:41 | P.HP ---
Certification for Inpatient Patient admitted to: Observation With expected LOS: <2 Midnights Patient will require the following post-hospital care: None Practitioner: I am a practitioner with admitting privileges, knowledge of patient current condition, hospital course, and medical plan of care. Services: Services provided to patient in accordance with Admission requirements found in Title 42 Section 412.3 of the Code of Federal Regulations Patient History Date of Service: 09/26/21 Reason for admission: Chest pain History of Present Illness: 61-year-old female patient with history of hypertension, hyperlipidemia, anxiety/depression presents emergency department for palpitations, shortness of breath, chest pain, headache. Patient reports she had symptoms including headache, some confusion/paresthesias intermittently in addition to some palpitations, chest discomfort periodically most recently today about 15 minutes. Patient was evaluated in the emergency department her labs were unremarkable, chest x-ray markable CT head brain without contrast negative for any acute findings UDS is pending although patient denies any drug use. TSH/T4 also within normal limits. ED provider wishes to admit under observation for chest pain/palpitations. Allergies adhesive tape Allergy (Verified 03/01/19 08:34) skin blisters diphenhydramine HCl [From Benadryl Allergy] Adverse Reaction (Intermediate, Verified 03/01/19 08:34) agitation Home Medications: estradioL [Estradiol (Twice Weekly)] 1 each TD EVERY 7TH DAY 02/24/19 - Past Medical/Surgical History Diabetic: No -: Hypertension -: Hyperlipidemia -: hysterectomy -: x 3 -: deanna -: hemrrhoidectomy -: tonsil & adenoid removal -: eyelids lifted -: bunionectomy -: R shoulder sx Psychosocial/ Personal History: Patient lives at home with her - Family History Father Notes: alcoholic Mother -: Hypertension, Cancer Sister -: Hypertension, Seizures Notes: Yisel Salinas HTN Brother -: Hypertension - Social History Smoking Status: Never smoker Alcohol use: No CD- Drugs: No Caffeine use: No Place of Residence: Home Review of Systems 10-point ROS is otherwise unremarkable Respiratory: Shortness of Breath, SOB with Excertion Cardiovascular: Chest Pain, Palpitations, As per HPI Neurological: Other (Headache) Physical Examination - Physical Exam General: Alert, In no apparent distress, Oriented x3 HEENT: Atraumatic, PERRLA, Mucous membr. moist/pink, EOMI, Sclerae nonicteric Neck: Supple, 2+ carotid pulse no bruit, No LAD, Without JVD or thyroid abnormality Respiratory: Clear to auscultation bilaterally, Normal air movement Cardiovascular: Regular rate/rhythm, Normal S1 S2 Gastrointestinal: Normal bowel sounds, No tenderness Musculoskeletal: No tenderness Integumentary: No rashes Neurological: Normal speech, Normal strength at 5/5 x4 extr, Normal tone, Normal affect Lymphatics: No axilla or inguinal lymphadenopathy - Studies Laboratory Data (last 24 hrs) 09/26/21 00:29: PT 11.0, INR 1.00 09/26/21 00:29: WBC 7.4, Hgb 12.4, Hct 36.1, Plt Count 186 09/26/21 00:29: Sodium 142, Potassium 3.5, BUN 11, Creatinine 1.00, Glucose 110 H, Magnesium 2.2, Total Bilirubin 0.3, AST 16, ALT 20, Alkaline Phosphatase 107 Assessment and Plan - Plan Assessment: Chest pain/palpitations rule out ACS Hypertension Hyperlipidemia Plan: Chest pain/palpitations rule out ACS: Trend troponins, monitor on telemetry, aspirin, statin, beta-sarahi therapy. Cardiology consult in place. Patient reports most recent stress test a few years ago. Hypertension: Continue home medications Hyperlipidemia: Continue home medications DVT PPX: Lovenox Code status: Full Discharge Plan: Home Plan to discharge in: 24 Hours - Advance Directives Does patient have a Living Will: No Does patient have a Durable POA for Healthcare: No - Code Status/Comfort Care Code Status Assessed: Yes (Full code) Critical Care: No Time Spent Managing Pts Care (In Minutes): 55
[2021-09-26] MEDS ORDERED: clonazePAM 0.5 MG TAB ONE (02:55)
[2021-09-26 03:10] LABS: Urine Blood Negative (Negative); Urine Glucose Negative (Negative); Urine Protein Negative (Negative); Urine Specific Gravity >=1.030 (1.005-1.030); Urine pH 5.5 (5.0-7.0)
[2021-09-26 03:51] LABS: Barbiturates NEGATIVE (NEGATIVE); Benzodiazepines NEGATIVE (NEGATIVE); Cocaine NEGATIVE (NEGATIVE); METHAMPHETAM POSITIVE (NEGATIVE); Methadone NEGATIVE (NEGATIVE); Opiates NEGATIVE (NEGATIVE); Phencyclidine NEGATIVE (NEGATIVE); THC Cannibis NEGATIVE (NEGATIVE)
[2021-09-26] MEDS ORDERED: ONDANSETRON 4 MG/2 ML VIAL IV PRN (04:13)
[2021-09-26 04:46] VITALS: BMI 29.2
[2021-09-26 05:48] LABS: Troponin High Sensitivity 4.8 pg/mL (<58.9)
[2021-09-26] MEDS ORDERED: METOPROLOL TAR 25 MG TAB PO SCH (06:00)
[2021-09-26] MEDS ORDERED: METOPROLOL TAR 25 MG TAB ONE (06:54)
[2021-09-26] MEDS ORDERED: LORazepam 2 MG/ML VIAL IV ONE (07:29)
--- NOTE | 2021-09-26 07:30 | EKG ---
Test Date: 2021-09-26 Test Time: 00:11:29 Semiconductor Engineer: MARCE MEASUREMENT RESULTS: Intervals: Rate: 73 VT: 158 QRSD: 84 QT: 386 QTc: 425 [place]: P: 61 VT: 158 QRS: 2 T: 25 INTERPRETIVE STATEMENTS: Normal sinus rhythm Normal ECG Compared to ECG 03/20/2020 19:38:29 No significant changes Electronically Signed On 09-26-21 07:29:44 CDT by Stephen Balderas
[2021-09-26] MEDS ORDERED: LORazepam 2 MG/ML VIAL ONE (07:40)
[2021-09-26] MEDS ORDERED: ASPIRIN 81 MG CHEWABLE TABLET ONE (08:43)
[2021-09-26] MEDS ORDERED: ENOXAPARIN 40 MG/0.4 ML SQ ONE (08:44)
[2021-09-26] MEDS ORDERED: ENOXAPARIN 40 MG/0.4 ML SQ SCH (09:00)
[2021-09-26] MEDS ORDERED: ASPIRIN EC 81 MG TAB PO SCH (09:00)
--- NOTE | 2021-09-26 09:35 | RAD REPORT ---
EXAM DESCRIPTION: MRI - Brain W/Wo Cont - 09/26/2021 8:32 am CLINICAL HISTORY: epilepsy protocol Headache, drowsiness, seizure COMPARISON: Head Brain Wo Cont dated 09/26/2021 TECHNIQUE: Multi-sequence, multiplanar MR imaging of the brain was performed with contrast. FINDINGS: No intracranial hemorrhage, hydrocephalus, or extra-axial fluid collection.Minimal chronic microvascular ischemia in the periventricular white matter. No edema or shift of midline structures. No intracranial mass. DWI is negative for acute CVA. The midline structures are normally formed. Mastoid air cells and paranasal sinuses are clear. Post-contrast images show no abnormal enhancement to suggest tumor or infection. IMPRESSION: No potential seizure focus is identified on this study. No pathologic post-contrast enhancement suspected.
[2021-09-26 12:07] VITALS: BP 90/55; TEMP 97.7
--- NOTE | 2021-09-26 12:08 | RAD REPORT ---
EXAM DESCRIPTION: Chest Single View CLINICAL HISTORY: 61 years Female, CHEST PAIN TECHNIQUE: 1 view (Single frontal view of the chest) COMPARISON: None. FINDINGS: Secondary to patient's body habitus, bilateral lower lobes are not adequately evaluated. LINES AND TUBES: None. CARDIOVASCULAR STRUCTURES: pper limits of normal heart size. No pulmonary venous congestion. LUNGS: Bilateral upper lobes are clear. PLEURA: Small effusions cannot be excluded. No pneumothorax. BONES: No acute osseous abnormality of the thorax. IMPRESSION: 1. Secondary to patient's body habitus, bilateral lower lobes are not adequately evalu ated. Underlying airspace disease or effusion is not excluded.. 2. Severe bilateral upper lobes. Electronically signed by: Chacho Og MD 09/26/2021 12:50 AM CDT Due to temporary technical issues with the PACS/Fluency reporting system, reports are being signed by the in house radiologist without review as a courtesy to ensure prompt reporting. The interpreting r adiologist is fully responsible for the content of the report.
--- NOTE | 2021-09-26 12:38 | RAD REPORT ---
EXAM DESCRIPTION: Head Brain Wo Cont 09/26/2021 1:11 AM CDT CLINICAL HISTORY: 61 years, Female, Headache, new or worsening COMPARISON: Previous report performed 07/27/2020 FINDINGS: Multiple transaxial tomograms of the brain were obtained from the base of the skull to the vertex without contrast. 2-D multiplanar reformats and the coronal and sagittal plane were performed and reviewed. This exam was performed according to our departmental dose-optimization protocol, which includes auto mated exposure control, adjustment of the mA and/or kV according to patient size and/or use of iterat bahman reconstruction technique. Brain parenchyma as well as the jones and white matter differentiation demonstrate to be unremarkable. There is no midline shift and/or mass effect. There is no evidence for acute hemorrhage. No focal ar eas of hypodensities. Lateral ventricles and cisterns displace normal appearance. No intra or ext ra axial fluid collections were seen. The calvarium is intact with no evidence for fracture. The visu alized portions of the paranasal sinuses and orbits demonstrate to be clear. IMPRESSION: NO ACUTE INTRACRANIAL HEMORRHAGE. UNREMARKABLE CT SCAN OF THE HEAD WITHOUT CONTRAST. Electronically signed by: Matues Orellana MD 09/26/2021 1:14 AM CDT Due to temporary technical issues with the PACS/Fluency reporting system, reports are being signed by the in house radiologist without review as a courtesy to ensure prompt reporting. The interpreting r adiologist is fully responsible for the content of the report.
[2021-09-26 16:04] VITALS: O2SAT 95
[2021-09-26] MEDS ORDERED: ATORVASTATIN 40 MG TAB PO SCH (21:00)
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
--- NOTE | 2021-09-27 10:51 | CON ---
Date of Consultation: 09/26/2021 Reason For Admission: Chest pain and palpitation. History Of Present Illness: Ms. Baker is a 61-year-old without any significant past medical history, who came in with palpitations, rapid heartbeat with some chest pain without any nausea, vomiting, di aphoresis, PND, orthopnea, pedal edema, palpitation, or syncope. She has had negative cardiac workup in the past. She is asymptomatic now. She is in normal rhythm. Past Medical History: Unremarkable. Review of Systems: Negative. Social History: Negative. Family History: Negative. Medications: Listed by Dr. De Los Santos. Physical Examination: Vital Signs: Stable, afebrile. HEENT: Negative. Neck: Supple with no bruit. Chest: Clear to auscultation and percussion. Cardiac: Revealed a regular rhythm and rate. No murmurs, gallops, or rubs. Abdomen: Benign. Extremities: Revealed no clubbing, cyanosis, or edema. Diagnostic Data: All normal. Impression And Plan: Atypical chest pain, palpitation, previous cardiac workup that is negative. EK G is unremarkable. Troponin is negative. Chest x-ray is negative. I am comfortable with Mrs. Baker going home and following up with me in the office in the near future. No change in her medical therapy. We may want to consider an event monitor as an outpatient, may con drink waiter low-dose beta sarahi as well. ARNULFO/ELSY Voice ID: [id number] Report ID: [id number]
== END 2021-09-26 15:43 | disposition home or self-care (01) ==
LOC: ER 23:15 → ERHOLD 09-26 02:33 → 2ND 09-26 11:27 → ERHOLD 09-26 11:49
PROVIDERS: ADMIT Hospitalist; ATTEND Hospitalist
DX: R07.89 Other chest pain (principal); R00.2 Palpitations; I10 Essential (primary) hypertension; E78.5 Hyperlipidemia, unspecified; R51.9 Headache, unspecified; R41.0 Disorientation, unspecified; R06.02 Shortness of breath; F41.9 Anxiety disorder, unspecified; F32.A Depression, unspecified; Z20.822 Contact with and (suspected) exposure to COVID-19; Z86.73 Personal history of transient ischemic attack (TIA), and cerebral infarction without residual deficits; Z91.09 Other allergy status, other than to drugs and biological substances; Z88.8 Allergy status to other drugs, medicaments and biological substances; Z90.49 Acquired absence of other specified parts of digestive tract; Z90.710 Acquired absence of both cervix and uterus; Z82.49 Family history of ischemic heart disease and other diseases of the circulatory system; Z80.9 Family history of malignant neoplasm, unspecified; Z82.0 Family history of epilepsy and other diseases of the nervous system
CPT/HCPCS: 93005; 85025; 80048; 36415; 83735; 85610; 80061; 85379; 80076; 84443; 81003; 84484 ×3; 84439; 83880; 80307; 70450; 71045; 70553; 99283; U0003; A9577; J1650; G0378 ×2

== ENCOUNTER 2021-10-16 20:55 | Emergency (ER) | payer BC ==
--- OUTSIDE RECORDS SUMMARY | 2021-10-16 21:00 | XMS REPORT | Continuity of Care Document ---
:[address] [facility] t Address [address] [place] [address] Care Team Providers Name Role Phone Deidre Jacobson MD Primary Care Physician ANDRES LEBRON Attending Clinician Unavailable Dirk Lebron MD Attending Clinician Gilda Diaz Attending Clinician Andres Lebron MD Attending Clinician Mirza Reynoso MD Attending Clinician Oma Pardo MD Attending Clinician Jaye Yen MD Attending Clinician Jaye YEN Attending Clinician Unavailable FARZAD Attending Clinician Unavailable Salty LARA, G Attending Clinician Cb CUENCA Attending Clinician Rolando Manzo MD Attending Clinician Farzad LIN Attending Clinician ANDRES LEBRON Admitting Clinician Unavailable Cb CUENCA Admitting Clinician Payers Payer Name Policy Type Policy Number Effective Date Expiration Date [facility] - [id number] 2017 00:00:00 OUT OF STATE Problems Condition Condition Condition Status Onset Resolution Last Treating Co mments Source Name Details Category Date Date Treatment Clinician Date Rotator Rotator Disease Active [facility] cuff tear cuff tear 09-21 Cristiano ege 00:00: of 00 Medicin e Rotator Rotator Disease Active [facility] cuff tear cuff tear 09-21 [facility] 00:00: Medical 00 [place] Biceps Biceps Disease Active [facility] tendonitis tendonitis 09-21 [facility] 00:00: Medical 00 Martin History of History of Disease Active [facility] failed failed 09-21 [facility] repair of repair of 00:00: Medi baljinder rotator rotator 00 Martin cuff cuff Lower Lower Disease Active [facility] respirator respirator 8-30 Co llege y tract y tract 00:00: of infection infection 00 Medi ruby due to due to e COVID-19 COVID-19 virus virus Lower Lower Disease Active [facility] respirator respirator 8-30 it y of y tract y tract 00:00: [place] infection infection 00 Medi baljinder due to due to Branch COVID-19 COVID-19 virus virus Obesity Obesity Disease Active [facility] (BMI (BMI 6-19 College 30-39.9) 30-39.9) 00:00: of 00 Medicin e Cellulitis Cellulitis Disease Active [facility] 6-07 College 00:00: of 00 Medicin e Ex-smoker Ex-smoker Disease Active 2015-[address] [facility]09 [facility] 00:00: Medical 00 [place] Right Right Disease Active 2015-[address] [facility] sided sided 108 [facility] weakness weakness 00:00: Medica l 00 [place] Headache Headache Disease Active 2015-05 [facility] 00[facility] Center Restless Restless Disease Active 2015-05 [facility] leg leg [facility]08 [facility] syndrome syndrome 00:00: Medica l 00 Center Hyperlipid Hyperlipid Disease Active 2015-[address] emia emia 1-08 [facility] 00:00: Medical 00 [place] Aphasia Aphasia Disease Active 2015-[address] [facility]08 [facility] 00:00: Medical 00 [place] TIA TIA Disease Active 2015-[address] [facility] [address] (transient (transient 1 [place] ischemic ischemic 00:00: Medica l attack) attack) 00 Center H/O: H/O: Disease Active Overview: [facility] hysterecto hysterecto 10-08 [facility] my my 00:00: g of this of note Medicin might be e different from the original. Completed for heavy bleeding. Partial hyst. Encounter Encounter Disease Active Overview: [facility] for for 10-08 [facility] routine routine 00:00: g of this of gynecologi gynecologi 00 note Me dicin baljinder baljinder might be e examinatio examinatio different n n from the original. 3- negative colorecta l cards.Lexx mogram Impressio n: BI-RAD: 2, benign. No mammograp hic evidence for malignanc y. Annual mammograp hy is the recommend ation for the patient. 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 on on Referral given to local ER Dysplasia Dysplasia Disease Active Overview: [facility] of cervix of cervix 10-08 [facility] C ollege 00:00: g of this of note Medicin might be e different from the original. 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 No known No known Disease [facility] problems problems of Medicin e Allergies, Adverse Reactions, Alerts Allergy Allergy Status Severity Reaction(s) Onset Inactive Treating Comm ents Source Name Type Date Date Clinician Adhesive Drug Active Other (See blister [facility] Tape-Loren Allergy Comments) 01-13 [facility] icones 00:00: Medical 00 Center Codeine Drug Active Itching [facility] Allergy 01-13 [facility] 00:[facility] Center Diphenhy Drug Active Other (See "makes me [facility] dramine Allergy Comments) 01-13 climb the [place] Hcl 00:00: redman""ma Medical 00 kes la Center climb the redman" ADHESIVE Allergy Active High Other 2019-[address] [facility] [address] TAPE-LOREN 01-13 [facility] ICONES 00:00: Medical 00 Center DIPHENHY Allergy Active High Other 2019-[address] [facility] DRAMINE 01-13 [facility] HCL 00:00: Medical 00 Center CODEINE Allergy Active Med Itching 2019- [facility] 00:[facility]: Medical 00 Center ADHESIVE DRUG Active Other-Cmnt 0 Univ ers TAPE-LOREN 01-13 ity of ICONES 00:00: [place] 00 Medical Branch DIPHENHY DRUG Active Other-Cmnt 2019-0 Univ ers DRAMINE INGREDI 01-13 ity of HCL 00:00: [place] 00 Medical Branch CODEINE DRUG Active ITCHING 2019-0 Univers INGREDI 01-13 ity of 00:00: [place] 00 Medical Branch Adhesive Propensi Active Other - See 2019- U nivers Tape-Loren ty to comments 01-13 ity of icones adverse 00:00: [place] reaction 00 Medical s Branch Diphenhy Propensi Active Other - See "makes m e Univers dramine ty to comments 01-13 climb the ity of Hcl adverse 00:00: redman" [place] reaction 00 Medical s Branch Codeine Propensi Active Itching 2019- Univer s ty to 01-13 ity of adverse 00:00: [place] reaction 00 Medical s Branch Codeine Propensi Active Itching [facility] ty to 01-13 [facility] adverse 00:00: of reaction 00 Medicin s to e drug Diphenhy Propensi Active Other (See "makes me Don dramine ty to Comments) 01-13 climb the Col lege Hcl adverse 00:00: redman" of reaction 00 Medicin s to e drug Adhesive Drug Active Hives, 1979-[address] [place] [address] [facility] Allergy Itching, paper [facility] Swelling, 00:00: tapes Medical Rash, Other 00 Cente r (See Comments) ADHESIVE Allergy Active High Hives 1979-[address] [facility] 00:00: Medical 00 Center Adhesive Propensi Active Swelling 1979-05 [facility] ty to [facility] adverse 00:00: of reaction 00 Medicin s to e substanc e NO KNOWN Drug Active Univers ALLERGIE Class ity of S [facility] Family History Family Member Diagnosis Comments Start Date Stop Date Source Natural brother Migraines [facility] [place] [facility] Maternal grandmother Stroke [facility] St kes [facility] Natural sister Seizures [facility] Social History Social Habit Start Date Stop Date Quantity Comments Source Exposure to Not sure [facility] Farazneh e of SARS-CoV-2 Medicine (event) History SDOH [facility] Alcohol Frequency Medical Center History SDOH [facility] Alcohol Std Medical Cente r Drinks History SDOH [facility] Alcohol Binge Medical Adrianna ter Alcohol intake 2020-09-22 2020-09-22 Ex-drinker [facility] 00:00:00 00:00:00 (finding) [facility] Tobacco use and 2020-09-13 2020-09-[address] [facility] [place] exposure 00:00:00 00:00:00 [facility] Tobacco Comment 2020-09-13 2020-09-13 [facility] at age 48 [facility] 00:[facility]:00 00:00:00 [facility] Alcohol Comment 2016-03-25 2016-03-25 [address] [facility] 00:00:00 00:00:00 every 6 months Medical Ce nter History of 2010-08-08 Cigarette Smoker [facility] of tobacco use 00:00:00 [facility] Sex Ass[birth year] At [birth year] LENORA Pandya 00:00:00 00:00:00 [facility] Smoking Status Start Date Stop Date Source Never smoker [facility] o Medicine Former smoker 2020-07-24 00:00:00 2020-07-24 00:00:00 [facility] Medications Ordered Filled Start Stop Current Ordering Indication Dosage Frequency Signature Comments Components Source Medication Medication Date Date Medication? Clinician (SIG) Name Name famotidine Yes 40mg Take 40 mg [facility] (PEPCID) 40 6-30 by mouth. Col lege MG tablet 14:36: of 49 Medicin e clopidogrel Yes 75mg Take 75 mg [facility] (PLAVIX) 75 6-30 by mouth. Col lege MG Tablet 14:36: of 49 Medicin e clopidogrel Yes 75mg Take 75 mg Don (PLAVIX) 75 5-12 by mouth. Col lege MG Tablet 10:58: of 00 Medicin e famotidine Yes 40mg Take 40 mg [facility] (PEPCID) 40 5-12 by mouth. Col lege MG tablet 10:58: of 00 Medicin e hydrocodone 0 Yes 1{tbl} Take 1 Ba [...] e needed for Pain. meloxicam 2020-0 Yes [id number] 7.5mg Take 1 Don (MOBIC) 7.5 5-11 Tablet by Col lege MG tablet 00:00: mouth of 00 daily. Medicin e meloxicam 2020-0 Yes [id number] 7.5mg Take 1 Don (MOBIC) 7.5 5-11 Tablet by Col lege MG tablet 00:00: mouth of 00 daily. Medicin e ibuprofen Yes 200mg Take [address] (ADVIL,MOTR 5-06 mg by [facility]ukes IN) 200 MG 15:00: mouth Medica l tablet 36 every 8 Center (eight) hours as needed . DULoxetine 0 Yes 20mg QD Take [address] (CYMBALTA) 5-06 by mouth [facility] 20 MG 15:00: daily. Medical capsule 36 Center ibuprofen 0 Yes 200mg Take [address] (ADVIL,MOTR 5-06 mg by [facility] IN) 200 MG 15:00: mouth Medica l tablet 36 every 8 Center (eight) hours as needed . DULoxetine 0 Yes 20mg QD Take [address] (CYMBALTA) 5-06 by mouth [facility] 20 MG 15:00: daily. Medical capsule 36 Center hydrocodone 2020-0 Yes 1{tbl} Take 1 Ba [...] 1 [facility] or rine 5-04 Tablet by [facility] (FLEXERIL) 00:00: mouth 3 of 5 MG [...] 1 [facility] or rine 5-04 Tablet by [facility] (FLEXERIL) 00:00: mouth 3 of 5 MG [...] 500 [facility] en 3-29 mg by [facility] (TYLENOL) 18:42: mouth. of 500 mg 24 Medicin tablet e clopidogrel 0 Yes 75mg Take 75 mg Don (PLAVIX) 75 3-29 by mouth. Col lege MG Tablet 18:42: of 24 Medicin e famotidine 0 Yes 40mg Take 40 mg [facility] (PEPCID) 40 3-29 by mouth. Col lege MG tablet 18:42: of 24 Medicin e ibuprofen 0 Yes 200mg Take 200 [facility] tony (MOTRIN) 3-29 mg by [facility] 200 mg 18:42: mouth. of tablet 24 Medicin e gabapentin 2020-0 Yes as needed [facility] (NEURONTIN[facility] 1-21 . [facility] 600 MG 00:00: Medical tablet 00 Center dextroamphe 2020-0 Yes as needed [facility] tamine-amph 1-21 . [facility] etamine 00:00: Medical (ADDERALL 00 Center XR) 20 MG 24 hr capsule gabapentin 2020-0 Yes as needed [facility] (NEURONTIN) 1-21 . [facility] 600 MG 00:00: Medical tablet 00 Center dextroamphe 2020-0 Yes as needed [facility] tamine-amph -21 . [facility] etamine 00:00: Medical (ADDERALL 00 Center XR) 20 MG 24 hr capsule gabapentin 2020-0 Yes Don (NEURONTIN) 1-21 College 600 MG 00:00: of tablet 00 Medicin e amphetamine 2020-0 Yes Don -dextroamph 1-21 College etamine 00:00: of (ADDERALL 00 Medicin XR) 20 MG e XR capsule gabapentin 2020-0 Yes [facility] (NEURONTIN) 1-21 College 600 MG 00:00: of tablet 00 Medicin e amphetamine 2020-0 Yes [facility] -dextroamph 1-21 College etamine 00:00: of (ADDERALL 00 Medicin XR) 20 MG e XR capsule gabapentin 2020-0 Yes [facility] (NEURONTIN) 1-21 College 600 MG 00:00: of tablet 00 Medicin e amphetamine 2020-0 Yes [facility] -dextroamph 1-21 College etamine 00:00: of (ADDERALL 00 Medicin XR) 20 MG e XR capsule Amphetamine 2020-0 Yes [facility] -Dextroamph 1-15 College etamine 00:00: of (ADDERALL 00 Medicin OR) e Amphetamine 1-0 2021- No [facility] -Dextroamph 1-15 05-12 College etamine 00:00: 00:00 of (ADDERALL 00 :00 Medicin OR) e rosuvastati 2020-0 Yes QD daily . [facility] (CRESTOR) 1-14 [facility] 5 MG tablet 00:00: Medica l 00 Center rosuvastati 2020-0 Yes QD daily . [facility] n (CRESTOR) 1-14 [facility] 5 MG tablet 00:00: Medica l 00 Center rosuvastati 0 Yes [facility] n (CRESTOR) 1-14 College 5 MG tablet 00:00: of Medicin e rosuvastati Yes [facility] n (CRESTOR) 1-14 College 5 MG tablet 00:00: of Medicin e rosuvastati Yes [facility] n (CRESTOR) 1-14 College 5 MG tablet 00:00: of 00 Medicin e cholecalcif 2020-0 Yes 1000U QD Take 1,[address] delmis 9-01 Units by [facility] (VITAMIN 00:00: mouth Medical D3) 25 mcg 00 daily . Center (1,000 unit) tablet cholecalcif 2020-0 Yes 1000U QD Take 1,[address] delmis 9-01 Units by [facility] (VITAMIN 00:00: mouth Medical D3) 25 mcg 00 daily . Center (1,000 unit) tablet cholecalcif 2020-0 Yes [id number] 1000U Take 1 Univers delmis, 9-01 tablet by ity of vitamin D3, 00:00: mouth [place] 25 mcg 00 daily. Medical (1,000 Branch unit) tablet cholecalcif 2020-0 Yes [id number] 1000U Take 1 Univers delmis, 9- [id number] tablet by ity of vitamin D3, 00:00: mouth [place] 25 mcg 00 daily. Medical (1,000 Branch unit) tablet cholecalcif 2020-0 Yes [id number] 1000U Take 1 Univers delmis, 9- [id number] tablet by ity of vitamin D3, 00:00: mouth [place] 25 mcg 00 daily. Medical (1,000 Branch unit) tablet cholecalcif 2020-0 Yes [id number] 1000U Take 1 Univers delmis, 9- [id number] tablet by ity of vitamin D3, 00:00: mouth [place] 25 mcg 00 daily. Medical (1,000 Branch unit) tablet Cholecalcif 2020-0 Yes 1000U Take 1,000 Don delmis 25 MCG 9-01 Units by Cristiano cohen (1000 UT) 00:00: mouth. of TABS 00 Medicin e Cholecalcif 2020-0 Yes 1000U Take 1,000 Don delmis 25 MCG 9-01 Units by Cristiano cohen (1000 UT) 00:00: mouth. of TABS 00 Medicin e Cholecalcif 2020-0 Yes 1000U Take 1,000 [facility] delmis 25 MCG 9-01 Units by Cristiano cohen (1000 UT) 00:00: mouth. of TABS 00 Medicin e acetaminoph 2020-0 Yes 500mg Take 500 U nivers en (TYLENOL 8-31 mg by ity of EXTRA 22:54: mouth [place] STRENGTH) 56 every 6 Medical 500 mg (six) Branch tablet hours as needed. ibuprofen 2020-0 Yes 200mg Take 200 Uni vers (ADVIL) 200 8-31 mg by ity of mg tablet 22:54: mouth [place] 56 every 6 Medical (six) Branch hours as needed. clopidogreL 2020-0 Yes 75mg Take 75 mg Univers (PLAVIX) 75 8-31 by mouth ity of mg tablet 22:54: daily. [address] Branch famotidine 2020-0 Yes 40mg Take 40 mg U nivers (PEPCID) 40 8-31 by mouth ity of mg tablet 22:54: daily. [address] acetaminoph 2020-0 Yes 500mg Take 500 U nivers en (TYLENOL 8-31 mg by ity of EXTRA 22:54: mouth [place] STRENGTH) 56 every 6 Medical 500 mg (six) Branch tablet hours as needed. ibuprofen 2020-0 Yes 200mg Take 200 Uni vers (ADVIL) 200 8-31 mg by ity of mg tablet 22:54: mouth [place] 56 every 6 Medical (six) Branch hours as needed. clopidogreL 2020-0 Yes 75mg Take 75 mg Univers (PLAVIX) 75 8-31 by mouth ity of mg tablet 22:54: daily. [address] famotidine 2020-0 Yes 40mg Take 40 mg U nivers (PEPCID) 40 8-31 by mouth ity of mg tablet 22:54: daily. [address] Branch acetaminoph 2020-0 Yes 500mg Take 500 U nivers en (TYLENOL 8-31 mg by ity of EXTRA 22:54: mouth [place] STRENGTH) 56 every 6 Medical 500 mg (six) Branch tablet hours as needed. ibuprofen 2020-0 Yes 200mg Take 200 Uni vers (ADVIL) 200 8-31 mg by ity of mg tablet 22:54: mouth [place] 56 every 6 Medical (six) Branch hours as needed. clopidogreL 2020-0 Yes 75mg Take 75 mg Univers (PLAVIX) 75 8-31 by mouth ity of mg tablet 22:54: daily. [address] famotidine 2020-0 Yes 40mg Take 40 mg U nivers (PEPCID) 40 8-31 by mouth ity of mg tablet 22:54: daily. [address] acetaminoph 2020-0 Yes 500mg Take 500 U nivers en (TYLENOL 8-31 mg by ity of EXTRA 22:54: mouth [place] STRENGTH) 56 every 6 Medical 500 mg (six) Branch tablet hours as needed. ibuprofen 2020-0 Yes 200mg Take 200 Uni vers (ADVIL) 200 8-31 mg by ity of mg tablet 22:54: mouth [place] 56 every 6 Medical (six) Branch hours as needed. clopidogreL 2020-0 Yes 75mg Take 75 mg Univers (PLAVIX) 75 8-31 by mouth ity of mg tablet 22:54: daily. [address] famotidine 2020-0 Yes 40mg Take 40 mg U nivers (PEPCID) 40 8-31 by mouth ity of mg tablet 22:54: daily. [address] azithromyci 2020-0 2020- No 250mg Take 250 Univers n 250 mg 01-16 08-31 mg by ity of tablet 20:50: 00:00 mouth [place] 32 :00 daily. Medical Take 500 Branch mg day 1, then 250 mg days 2 to 5. cefdinir 2020-0 2020- No 300mg Take 300 Uni vers 300 mg 01-16 08-31 mg by ity of capsule 20:50: 00:00 mouth [place] 32 :00 every 24 Medical (twenty- Branch ur) hours. methylPREDN 2020-0 2020- No 4mg Take 4 mg Univers ISolone 4 01-16 by mouth ity o f mg tablets 20:50: 00:00 SEE-INSTRU [place] 32 :00 CTIONS. Medical follow [place] package directions enoxaparin 2020-0 Yes 40mg 40 mg, Unive rs (LOVENOX) 01-16 Subcutaneo ity of injection 14:00: us, Q24H, Ar as 40 mg 00 First dose Medical on Fri [place] 01/17/20 at 0900, Until Discontinu ed, Routine famotidine 2020-0 Yes 40mg 40 mg, Unive rs (PEPCID AC) 01-16 Oral, ity of tablet 40 14:00: DAILY, [place] mg 00 First dose Medical on Fri [place] 01/17/20 at 0900, Until Discontinu ed, Routine cholecalcif 2020-0 Yes 1000U 1,000 Univ ers delmis 8-31 Units, ity of (vitamin 14:00: Oral, [place] D3) tablet 00 DAILY, Medical 1,000 Units First dose Br anch on 01/17/20 at 0900, Until Discontinu ed, Routine benzonatate 2020-0 Yes 100mg 100 mg, Un hieu (TESSALON 8-31 Oral, TID, ity of PERLES) 01:00: First dose [place] capsule 100 00 on [place] Medica l mg 01/16/20 at Branch 1999, Until Discontinu ed, Routine zinc 2020-0 Yes 220mg 220 mg, Univers sulfate 8-31 Oral, TID, ity of (ORAZINC) 01:00: First dose [place] capsule 220 00 on Sun Medica l mg 01/16/20 at Branch 1999, Until Discontinu ed, Routine ascorbic 2020-0 Yes 500mg 500 mg, Unive rs acid 8-31 Oral, BID, ity of (vitamin C) 01:00: First dose [place] (VITAMIN C) 00 on Sun Medica l tablet 500 01/16/20 at [facility] mg 2000, Until Discontinu ed, Routine albuterol 2020-0 Yes 2{puff} 2 Puffs by [facility] 108 (90 8-31 Inhalation Colleg e base) 00:00: route. of mcg/act 00 Medicin inhaler e ascorbic 2020-0 Yes 500mg Take 500 [facility] or acid 500 MG 8-31 mg by [facility] tablet 00:00: mouth. of 00 Medicin e dexamethaso 2020-0 Yes 4mg Take 4 mg [facility] ne 8-31 by mouth. College (DECADRON) 00:00: of 4 MG tablet 00 Medicin e zinc 2020-0 Yes 220mg Take 220 [facility] sulfate 8-31 mg by [facility] (ZINCATE) 00:00: mouth. of 220 (50 Zn) 00 Medicin MG capsule e albuterol 2020-0 Yes 2{puff} 2 Puffs by [facility] 108 (90 8-31 Inhalation Colleg e base) [...] zinc 2020-0 Yes 220mg QD Take [address] sulfate 8-31 mg by [facility]ukes (ZINCATE) 00:00: mouth Medical 220 (50) mg 00 daily . Cente r capsule ascorbic 2020-0 Yes 500mg QD Take [address] acid, 8-31 mg by [facility]ukes vitamin C, 00:00: mouth Medica l (VITAMIN C) 00 daily . Cente r 500 MG tablet albuterol 2020-0 Yes 2{puff} Inhale [address] HFA 8-31 puffs by [facility] (VENTOLIN 00:00: mouth via Med ical HFA) 90 00 inhaler Center mcg/actuati every 6 on inhaler (six) hours as needed . zinc 2020-0 Yes 220mg QD Take [address] sulfate 8-31 mg by [facility]ukes (ZINCATE) 00:00: mouth Medical 220 (50) mg 00 daily . Cente r capsule ascorbic 2020-0 Yes 500mg QD Take [address] acid, 8-31 mg by [facility]ukes vitamin C, 00:00: mouth Medica l (VITAMIN C) 00 daily . Cente r 500 MG tablet albuterol 2020-0 Yes 2{puff} Inhale [address] HFA 8-31 puffs by [facility] (VENTOLIN 00:00: mouth via Med ical HFA) 90 00 inhaler Center mcg/actuati every 6 on inhaler (six) hours as needed . albuterol 2020-0 Yes [id number] 2{puff} Inhale 2 Univers 90 8-31 Puffs ity of mcg/actuati 00:00: every 4 Ar as on inhaler 00 (four) Medical hours as Branch needed for Wheezing or Shortness of Breath. ascorbic 2020-0 Yes [id number] 500mg Take 1 U nivers acid, 8-31 tablet by ity of vitamin C, 00:00: mouth [place] 500 mg 00 daily. Medical tablet Branch zinc 2020-0 Yes [id number] 220mg Take 1 Unive rs sulfate 220 8-31 capsule by it y of (50) mg 00:00: mouth [place] capsule 00 daily. Medical Branch dexAMETHaso 2020-0 Yes [id number] 4mg Take 1 Univers ne 4 mg 8-31 tablet by ity of tablet 00:00: mouth [place] 00 daily. Medical Branch albuterol 2020-0 Yes [id number] 2{puff} Inhale 2 Univers 90 8-31 [id number] Puffs ity of mcg/actuati 00:00: every 4 Ar as on inhaler 00 (four) Medical hours as Branch needed for Wheezing or Shortness of Breath. ascorbic 2020-0 Yes [id number] 500mg Take 1 Univers acid, 8-31 [id number] tablet by ity of vitamin C, 00:00: mouth [place] 500 mg 00 daily. Medical tablet Branch zinc 2020-0 Yes [id number] 220mg Take 1 Uni vers sulfate 220 8-31 [id number] capsule by ity of (50) mg 00:00: mouth [place] capsule 00 daily. Medical Branch dexAMETHaso 2020-0 Yes [id number] 4mg Take 1 Univers ne 4 mg 8-31 [id number] tablet by ity of tablet 00:00: mouth [place] 00 daily. Medical Branch albuterol 2020-0 Yes [id number] 2{puff} Inhale 2 Univers 90 8-31 [id number] Puffs ity of mcg/actuati 00:00: every 4 Ar as on inhaler 00 (four) Medical hours as Branch needed for Wheezing or Shortness of Breath. ascorbic 2020-0 Yes [id number] 500mg Take 1 Univers acid, 8-31 [id number] tablet by ity of vitamin C, 00:00: mouth [place] 500 mg 00 daily. Medical tablet Branch zinc 2020-0 Yes [id number] 220mg Take 1 Uni vers sulfate 220 8-31 [id number] capsule by ity of (50) mg 00:00: mouth [place] capsule 00 daily. Medical Branch dexAMETHaso 2020-0 Yes [id number] 4mg Take 1 Univers ne 4 mg 8-31 [id number] tablet by ity of tablet 00:00: mouth [place] 00 daily. Medical Branch albuterol 2020-0 Yes [id number] 2{puff} Inhale 2 Univers 90 8-31 [id number] Puffs ity of mcg/actuati 00:00: every 4 Ar as on inhaler 00 (four) Medical hours as Branch needed for Wheezing or Shortness of Breath. ascorbic 2020-0 Yes [id number] 500mg Take 1 Univers acid, 01-16 [id number] tablet by ity of vitamin C, 00:00: mouth [place] 500 mg 00 daily. Medical tablet Branch zinc 2020-0 Yes [id number] 220mg Take 1 Uni vers sulfate 220 01-16 [id number] capsule by ity of (50) mg 00:00: mouth [place] capsule 00 daily. Medical Branch dexAMETHaso 2020-0 Yes [id number] 4mg Take 1 Univers ne 4 mg 8 [id number] tablet by ity of tablet 00:00: mouth [place] 00 daily. Medical Branch zinc 2020-0 Yes 220mg Take 220 [facility] sulfate 8-31 mg by [facility] (ZINCATE) 00:00: mouth. of 220 (50 Zn) 00 Medicin MG capsule e albuterol 2020-0 Yes 2{puff} 2 Puffs by [facility] 108 (90 8-31 Inhalation [facility] e [facility]) [...] Take 220 Don sulfate 8-31 mg by [facility] (ZINCATE) 00:00: mouth. of 220 (50 Zn) 00 Medicin MG capsule e zolpidem 2020-0 Yes 5mg 5 mg, Univers (AMBIEN) 8-30 Oral, ity of tablet 5 mg 23:46: QHSPRN, Ar as 13 Starting [facility] 01/16/20 at 1846, Until Discontinu ed, Routine, Insomnia albuterol 2020-0 Yes 2{puff} 2 Puff, Un hieu (VENTOLIN) 8-30 Inhalation ity of inhaler 2 23:40: , Q4HPRN, Ar as Puff 38 Starting [facility] 01/16/20 at 1840, Until Discontinu ed, Routine, Wheezing, Shortness of Breath
Is this order for a patient with suspected or confirmed COVID-19 infection? Yes ondansetron 2020-0 Yes 4mg 4 mg, Slow Univers (ZOFRAN 830 IV Push, ity of (PF)) 21:02: Q6HPRN, [place] injection 4 30 Starting Medi baljinder mg [facility] 01/16/20 at 1602, Until Discontinu ed, Routine, Nausea and Vomiting (N/V) acetaminoph 2020-0 Yes 650mg 650 mg, Un hieu en 30 Oral, ity of (TYLENOL) 21:02: Q6HPRN, [place] tablet 650 10 Starting Medic al mg [facility] 01/16/20 at 1602, Until Discontinu ed, Routine, Pain (scale 1-3) FENTanyl PF 2020-0 2020- No 50ug 50 mcg, Un hieu (SUBLIMAZE 01-13 Slow IV ity o f (PF)) 12:30: 11:30 Push, [place] injection 00 :00 ONCE, 1 Medical 50 mcg dose, Fri [place] 01/14/20 at 0730, STAT acetaminoph 2020-0 2020- No 650mg 650 mg, U nivers en 01-13 Oral, ity of (TYLENOL) 12:15: 11:07 [place] 650 [place] :00 dose, Fri Medi baljinder mg 01/14/20 at Branch 0715, TRISH iohexol 2020-0 2020- No 120mL 120 mL, Unive rs (OMNIPAQUE 01-13 Intravenou it y of 350 11:15: 10:57 s, ONCE, 1 [place] BULK-150 00 :00 dose, Fri Medica l mL) 01/14/20 at [place] injection 0615, 120 mL Routine dicyclomine 2020-0 2020- No [id number] 10mg Take 1 Univers (BENTYL) 10 01-1303 capsule by i ty of mg capsule 00:00: 04:59 mouth 4 Ar as 00 :00 (four) Medical times Branch daily for 5 days. dicyclomine 2020-0 2020- No [id number] 10mg Take 1 Univers (BENTYL) 10 01-1303 capsule by i ty of mg capsule 00:00: 04:59 mouth 4 Ar as 00 :00 (four) Medical times Branch daily for 5 days. estradiol 2020-0 Yes [...] 00 Medicin patch e estradiol 2020-0 Yes [id number] 1{patch Apply 1 Univers 0.025 mg/24 5-21 } Patch to ity of hr patch 00:00: skin [place] 00 weekly. Medical Branch estradiol 2020-0 Yes [id number] 1{patch Apply 1 Univers 0.025 mg/24 5-21 } Patch to ity of hr patch 00:00: skin [place] 00 weekly. Medical Branch estradiol 2020-0 Yes [id number] 1{patch Apply 1 Univers 0.025 mg/24 5-21 } Patch to ity of hr patch 00:00: skin [place] 00 weekly. Medical Branch estradiol 2020-0 Yes [id number] 1{patch Apply 1 Univers 0.025 mg/24 5-21 } Patch to ity of hr patch 00:00: skin [place] 00 weekly. Medical Branch estradiol 2020-0 Yes [id number] 1{patch Apply 1 Univers 0.025 mg/24 5-21 } Patch to ity of hr patch 00:00: skin [place] 00 weekly. Medical Branch estradiol 2020-0 Yes [id number] 1{patch Apply 1 Univers 0.025 mg/24 5-21 } Patch to ity of hr patch 00:00: skin [place] 00 weekly. Medical Branch estradiol 2019-0 Yes [id number] 1{patch Apply 1 Univers 0.025 mg/24 9-19 } Patch to ity of hr patch 00:00: skin [place] 00 weekly. Medical Branch estradiol 2019-0 Yes [id number] 1{patch Apply 1 Univers 0.025 mg/24 9-19 } Patch to ity of hr patch 00:00: skin [place] 00 weekly. Medical Branch estradiol 2019-0 2020- No [id number] 1{patch Apply 1 Univers 0.025 mg/24 9-19 05-21 } Patch to ity of hr patch 00:00: 00:00 skin [place] 00 :00 weekly. [facility] estradiol 2019- No [id number] 1{patch Apply 1 Univers 0.025 mg/24 11-09 } Patch to ity of hr patch 00:00: 00:00 skin [place] 00 :00 weekly. [facility] estradiol 2019- No [id number] 1{patch Apply 1 Univers 0.025 mg/24 11-09 } Patch to ity of hr patch 00:00: 00:00 skin [place] 00 :00 weekly. [facility] fluticasone Yes [id number] 2{spray Use 2 Univers (FLONASE) 8-23 } Sprays in ity o f 50 00:00: each [place] mcg/actuati 00 nostril Medic al on nasal daily. [place] spray fluticasone Yes [id number] 2{spray Use 2 Univers (FLONASE) 8-23 } Sprays in ity o f 50 00:00: each [place] mcg/actuati 00 nostril Medic al on nasal daily. [place] spray fluticasone Yes [id number] 2{spray Use 2 Univers (FLONASE) 8-23 } Sprays in ity o f 50 00:00: each [place] mcg/actuati 00 nostril Medic al on nasal daily. [place] spray fluticasone Yes [id number] 2{spray Use 2 Univers (FLONASE) 8-23 } Sprays in ity o f 50 00:00: each [place] mcg/actuati 00 nostril Medic al on nasal daily. [place] spray azithromyci Yes [id number] 500mg Take 1 Univers n 500 mg 8-23 tablet by ity of tablet 00:00: mouth [place] 00 daily. [facility] Branch fluticasone Yes [id number] 2{spray Use 2 Univers (FLONASE) 8-23 } Sprays in ity o f 50 00:00: each [place] mcg/actuati 00 nostril Medic al on nasal daily. [place] spray azithromyci Yes [id number] 500mg Take 1 Univers n 500 mg 8-23 tablet by ity of tablet 00:00: mouth [place] 00 daily. [facility] Branch fluticasone Yes [id number] 2{spray Use 2 Univers (FLONASE) 8-23 } Sprays in ity o f 50 00:00: each [place] mcg/actuati 00 nostril Medic al on nasal daily. Branch spray azithromyci 2017-0 Yes [id number] 500mg Take 1 Univers n 500 mg 8-23 tablet by ity of tablet 00:00: mouth [place] 00 daily. Medical Branch fluticasone 2017- Yes [id number] 2{spray Use 2 Univers (FLONASE) 8-23 } Sprays in ity o f 50 00:00: each [place] mcg/actuati 00 nostril Medic al on nasal daily. Branch spray azithromyci 2016- Yes [id number] 500mg Take 1 Univers n 500 mg 8-23 tablet by ity of tablet 00:00: mouth [place] 00 daily. Medical Branch fluticasone 2016- Yes [id number] 2{spray Use 2 Univers (FLONASE) 8-23 } Sprays in ity o f 50 00:00: each [place] mcg/actuati 00 nostril Medic al on nasal daily. Branch spray azithromyci 2016- 2020- No [id number] 500mg Take 1 Univers n 500 mg 8-23 08-31 tablet by ity o f tablet 00:00: 00:00 mouth [place] 00 :00 daily. Medical Branch acetaminoph 2017-0 Yes 500mg Take 500 U nivers en (TYLENOL 6-14 mg by ity of EXTRA 01:25: mouth [place] STRENGTH) 53 every 6 Medical 500 mg (six) Branch tablet hours as needed. ibuprofen 2017-0 Yes 200mg Take 200 Uni vers (ADVIL) 200 6-14 mg by ity of mg tablet 01:25: mouth [place] 53 every 6 Medical (six) Branch hours as needed. acetaminoph 2017-0 Yes 500mg Take 500 U nivers en (TYLENOL 6-14 mg by ity of EXTRA 01:25: mouth [place] STRENGTH) 53 every 6 Medical 500 mg (six) Branch tablet hours as needed. ibuprofen 2017-0 Yes 200mg Take 200 Uni vers (ADVIL) 200 6-14 mg by ity of mg tablet 01:25: mouth [place] 53 every 6 Medical (six) Branch hours as needed. acetaminoph 2017-0 Yes 500mg Take 500 U nivers en (TYLENOL 6-14 mg by ity of EXTRA 01:25: mouth [place] STRENGTH) 53 every 6 Medical 500 mg (six) Branch tablet hours as needed. ibuprofen Yes 200mg Take 200 Uni vers (ADVIL) 200 6-14 mg by ity of mg tablet 01:25: mouth [place] 53 every 6 Medical (six) Branch hours as needed. acetaminoph Yes 500mg Take 500 U nivers en (TYLENOL 6-14 mg by ity of EXTRA 01:25: mouth [place] STRENGTH) 53 every 6 Medical 500 mg (six) Branch tablet hours as needed. ibuprofen Yes 200mg Take 200 Uni vers (ADVIL) 200 6-14 mg by ity of mg tablet 01:25: mouth [place] 53 every 6 Medical (six) Branch hours as needed. rOPINIRole 2015-05 Yes 1mg Q.[id number] Take [address] [facility] (REQUIP) 1 05-27 [id number] by mouth [facility] tablet 17:24: 3D (three) Medic al 27 times Center daily Pt stated that she is unsure of the dose and only takes it prn . rOPINIRole 2015-05 Yes 1mg Q.[id number] Take [address] [facility] (REQUIP) 1 05-27 [id number] by mouth [facility] tablet 17:24: 3D (three) Medic al 27 times Center daily Pt stated that she is unsure of the dose and only takes it prn . aspirin 81 2015-05 Yes 81mg QD Take [facility] chewable 1-09 tablet (81 [place] tablet 00:00: mg total) Medica l 00 by mouth Center daily. atorvastati 2015-05 Yes 80mg QD Take [address] [facility] (LIPITOR) 1-09 tablet (80 [place] 80 MG 00:00: mg total) Medical tablet 00 by mouth Center daily. aspirin 81 2015-05 Yes 81mg QD Take [facility] chewable 1-09 tablet (81 [place] tablet 00:00: mg total) Medica l 00 by mouth Center daily. atorvastati 2015-05 Yes 80mg QD Take [address] [facility] (LIPITOR) 1-09 tablet (80 [place] 80 MG 00:00: mg total) Medical tablet 00 by mouth Center daily. acetaminoph Yes May take Un hieu en-codeine 7-27 1-2 tabs ity o f (TYLENOL 00:00: every 6 [place] #3) 300-30 00 hours for Medi baljinder mg tablet pain Branch acetaminoph Yes May take Un hieu en-codeine 7-27 1-2 tabs ity o f (TYLENOL 00:00: every 6 [place] #3) 300-30 00 hours for Medi baljinder mg tablet pain Branch acetaminoph Yes May take Un hieu en-codeine 7-27 1-2 tabs ity o f (TYLENOL 00:00: every 6 [place] #3) 300-30 00 hours for Medi baljinder mg tablet pain Branch acetaminoph Yes May take Un hieu en-codeine 7-27 1-2 tabs ity o f (TYLENOL 00:00: every 6 [place] #3) 300-30 00 hours for Medi baljinder mg tablet pain Branch acetaminoph Yes May take Un hieu en-codeine 7-27 1-2 tabs ity o f (TYLENOL 00:00: every 6 [place] #3) 300-30 00 hours for Medi baljinder mg tablet pain Branch acetaminoph Yes May take Un hieu en-codeine 7-27 1-2 tabs ity o f (TYLENOL 00:00: every 6 [place] #3) 300-30 00 hours for Medi baljinder mg tablet pain Branch acetaminoph Yes May take Un hieu en-codeine 7-27 1-2 tabs ity o f (TYLENOL 00:00: every 6 [place] #3) 300-30 00 hours for Medi baljinder mg tablet pain Branch acetaminoph Yes May take Un hieu en-codeine 7-27 1-2 tabs ity o f (TYLENOL 00:00: every 6 [place] #3) 300-30 00 hours for Medi baljinder mg tablet pain Branch Immunizations Ordered Filled Immunization Date Status Comments [facility] e Immunization Name Name Influenza 2019-03-26 Completed [facility] (Preservative Free) 00:00:00 Medic ine Influenza 2019-03-26 Completed [facility] (Preservative Free) 00:00:00 Medic ine Influenza Virus 2019-03-26 Completed Universit y of Vaccine [facility] .5 mL 00:00:00 [facility] 6+ MO Branch Influenza Virus 2019-03-26 Completed Universit y of Vaccine [place] .5 mL 00:00:00 [place] [facility] 6+ MO Branch Influenza Virus 2019-03-26 Completed Universit y of Vaccine [place] .5 mL 00:00:00 [place] [facility] IM 6+ MO Branch Influenza Virus 2019-03-26 Completed Universit y of Vaccine [place] .5 mL 00:00:00 [facility] IM 6+ MO Branch Zoster Recombinant 2018-11-10 Completed [facility] 00:00:00 Medicine Zoster Recombinant 2018-11-10 Completed [facility] 00:00:00 Medicine Zoster Vaccine 2018-11-10 Completed University of Recombinant 00:00:00 [facility] Zoster Vaccine 2018-11-10 Completed University of Recombinant 00:00:00 [facility] Zoster Vaccine 2018-11-10 Completed University of Recombinant 00:00:00 [facility] Zoster Vaccine 2018-11-10 Completed University of Recombinant 00:00:00 [facility] Zoster Recombinant 2018-08-07 Completed [facility] 00:00:00 Medicine Zoster Recombinant 2018-08-07 Completed [facility] 00:00:00 Medicine Zoster Vaccine 2018-08-07 Completed University of Recombinant 00:00:00 [facility] Zoster Vaccine 2018-08-07 Completed University of Recombinant 00:00:00 [facility] Zoster Vaccine 2018-08-07 Completed University of Recombinant 00:00:00 [facility] Zoster Vaccine 2018-08-07 Completed University of Recombinant 00:00:00 [facility] Td 2008-10-08 Completed [facility] 00:00:00 Medicine Td 2008-10-08 Completed [facility] 00:00:00 Medicine Td 2008-10-08 Completed University of 00:00:00 [place] [facility] Td 2008-10-08 Completed University of 00:00:00 [facility] Branch Td 2008-10-08 Completed University of 00:00:00 [facility] Branch Td 2008-10-08 Completed University of 00:00:00 [facility] Branch Td 2008-10-08 Completed University of 00:00:00 [facility] Branch Td 2008-10-08 Completed University of 00:00:00 [facility] Td 2008-10-08 Completed University of 00:00:00 [facility] Td 2008-10-08 Completed University of 00:00:00 [facility] Vital Signs Vital Name Observation Time Observation Value Comments Source HEIGHT 2020-09-21 07:49:00 160 cm WEIGHT 2020-09-21 07:49:00 77.7 kg HEIGHT 2020-09-13 09:43:00 160 cm WEIGHT 2020-09-13 09:43:00 74.844 kg Body height 2020-11-15 19:36:00 160 cm [facility] Body weight 2020-11-15 19:36:00 72.576 kg [facility] BMI 2020-11-15 19:36:00 28.34 kg/m2 [facility] HEIGHT 2020-09-21 07:49:00 160 cm WEIGHT 2020-09-21 07:49:00 77.7 kg HEIGHT 2020-09-13 09:43:00 160 cm WEIGHT 2020-09-13 09:43:00 74.844 kg Body height 2020-08-14 18:40:00 160 cm [facility] Body weight 2020-08-14 18:40:00 72.576 kg [facility] BMI 2020-08-14 18:40:00 28.34 kg/m2 [facility] Body height 2020-07-24 20:16:00 160 cm Universi ty of [facility] Body weight 2020-07-24 20:16:00 72.576 kg Universi ty of [facility] BMI 2020-07-24 20:16:00 28.34 kg/m2 Universi ty of [facility] Body height 2020-07-24 20:16:00 160 cm Universi ty of [facility] Branch Body weight 2020-07-24 20:16:00 72.576 kg Universi ty of [facility] BMI 2020-07-24 20:16:00 28.34 kg/m2 Universi ty of [facility] Respiratory rate 2020-01-17 18:32:00 16 /[facility] Oxygen saturation in 2020-01-17 18:32:00 96 /min [facility] Arterial blood by [facility] Pulse oximetry Branch Systolic blood 2020-01-17 16:39:00 124 mm[Hg] Univer sity of pressure [facility] Diastolic blood 2020-01-17 16:39:00 77 mm[Hg] Unive rsity of [facility] Heart rate 2020-01-17 16:39:00 75 /min Universi ty of [place] [facility] Body temperature 2020-01-17 16:39:00 35.5 Sharlene Univ ersity [facility] [place] [facility] Body weight 2020-01-16 15:55:00 72.576 kg Universi ty of [place] [facility] BMI 2020-01-16 15:55:00 28.34 kg/m2 Universi ty of [place] [facility] Systolic blood 2020-01-14 11:00:00 134 mm[Hg] Univer sity of pressure [place] [facility] Diastolic blood 2020-01-14 11:00:00 84 mm[Hg] Unive rsity of pressure [place] [facility] Heart rate 2020-01-14 11:00:00 70 /min Universi ty of [facility] Branch Respiratory rate 2020-01-14 11:00:00 13 /min Univ ersity of [facility] Oxygen saturation in 2020-01-14 11:00:00 95 /min University of Arterial blood by [facility] Pulse oximetry Branch Body temperature 2020-01-14 09:54:00 37.44 Sharlene Univ ersity of [place] [facility] [place] Body weight 2020-01-14 09:54:00 72.576 kg Universi ty of [place] [facility] BMI 2020-01-14 09:54:00 28.34 kg/m2 Universi ty [facility] [place] [facility] Systolic blood 2019-02-04 13:26:00 130 mm[Hg] Univer sity of pressure [place] [facility] Diastolic blood 2019-02-04 13:26:00 80 mm[Hg] Unive rsity of pressure [place] [facility] Heart rate 2019-02-04 13:26:00 75 /min Universi ty [facility] [place] [facility] Body temperature 2019-02-04 13:26:00 36.5 Sharlene Univ ersity of [facility] Branch Respiratory rate 2019-02-04 13:26:00 18 /min Univ ersity of [facility] Branch Body height 2019-02-04 13:26:00 160 cm Universi ty of [place] [facility] [place] Body weight 2019-02-04 13:26:00 77.111 kg Universi ty of [place] [facility] [place] BMI 2019-02-04 13:26:00 30.11 kg/m2 Universi ty of [facility] Systolic blood 2020-09-21 14:30:00 104 mm[Hg] [facility] Diastolic blood 2020-09-21 14:30:00 64 mm[Hg] [facility] Heart rate 2020-09-21 14:30:00 65 /min [facility] Body temperature 2020-09-21 14:30:00 36.28 Sharlene [facility] Respiratory rate 2020-09-21 14:30:00 15 /min [facility] Heart Oxygen saturation in 2020-09-21 14:30:00 95 /min [facility] Arterial blood by Medical Ce nter Pulse oximetry Body height 2020-09-21 07:49:[address] [facility] Body weight 2020-09-21 07:49:[address] [facility] BMI 2020-09-21 07:49:00 30.34 kg/m2 [facility] Procedures Procedure Date / Time Performing Clinician Source Performed ARTHROSCOPY,SHOULDER 2020-09-21 09:36:00 rejisd [facility] ROTATOR CUFF REPAIR W/ [facility] GRAFT ARTHROSCOPY,SHOULDER 2020-09-21 09:36:00 ara [facility] DECOMPRESSION [facility] SUBACROMIAL SPACE W/ACROMIOPLASTY ARTHROSCOPY,BICEPS 2020-09-21 09:36:00 [facility] TENODESIS [facility] ANESTHESIA PERIPHERAL 2020-09-21 09:22:17 Robbin Reynoso [facility] PNEUMOCOCCAL ANTIGEN 2020-01-17 02:07:00 Gabrielle Ocasio [facility] C-REACTIVE PROTEIN 2020-01-16 21:39:00 [facility] D, 25-[place] 2020-01-16 21:39[facility] 2020-01-16 21:39:00 Amarjit [facility] XR CHEST 1 VW COVID 2020-01-16 17:14:45 Marlen Pond [facility] BLOOD CULTURE SCREEN 2020-01-16 16:28:00 Marlen Pond [facility] ACUTE CARE VENOUS BLOOD 2020-01-16 16:28:00 Marlen Pond [facility] GAS [facility] LACTATE DEHYDROGENASE 2020-01-16 16:19:00 Marlen Pond [facility] FERRITIN SERUM 2020-01-16 16:19:00 Marlen Pond [facility] TROPONIN I 2020-01-16 16:19:00 Marlen Pond [facility] HEPATIC FUNCTION PANEL 2020-01-16 16:19:00 Marlen Pond [facility] ([id number]) (ALB,T.PRO,BILI [facility] T,BU/BC,ALT,AST,ALK PHOS) BASIC METABOLIC PANEL 2020-01-16 16:19:00 Marlen Pond [facility] (NA, K, CL, CO2, Medical Branch GLUCOSE, BUN, CREATININE, CA) CBC WITH DIFF 2020-01-16 16:19:00 Marlen Pond [facility] PROTHROMBIN TIME / INR 2020-01-16 16:19:00 Marlen Pond [facility] D-DIMER 2020-01-16 16:19:00 Marlen Pond [facility] ACTIVATED PARTIAL 2020-01-16 16:19:00 Marlen Pond [facility] THRFormerly [facility] FIBRINOGEN 2020-01-16 16:19:00 Marlen Pond [facility] URINALYSIS 2020-01-16 16:19:00 Marlen Pond [facility] URINE CULTURE 2020-01-16 16:19:00 Marlen Pond [facility] N-TERMINAL PRO-BNP 2020-01-16 16:19:00 Marlen Pond [facility] COVID-19 (ID NOW RAPID 2020-01-16 16:19:00 Marlen Pond [facility] TESTING) [facility] LACTIC ACID WHOLE BLOOD 2020-01-16 16:18:00 Marlen Pond [facility] EKG-12 LEAD 2020-01-16 16:16:29 Marlen Pond [facility] NOTICE OF PRIVACY 2020-01-16 15:44:20 [facility] CONSENT/REFUSAL FOR 2020-01-16 15:44:06 Doctor Unassigned, No [facility] [place] DIAGNOSIS AND TREATMENT Name Medical Branch CT ABDOMEN PELVIS W 2020-01-14 11:03:22 Davis Manzo [facility] CONTRAST Medical Branch LIPASE 2020-01-14 10:04:00 Davis Manzo [facility] COMP. METABOLIC PANEL 2020-01-14 10:04:00 Davis Manzo [facility] ([id number]) Medical Branch CBC WITH DIFF 2020-01-14 10:04:00 Davis Manzo [facility] URINALYSIS 2020-01-14 10:04:00 Davis Manzo [facility] NOTICE OF PRIVACY 2020-01-14 09:39:58 Doctor Unassigned, No [facility] Medical Branch CONSENT/REFUSAL FOR 2020-01-14 09:38:59 Doctor Unassigned, No [facility] Medical Branch Plan of Care Planned Activity Planned Date Details Comments Source Future Scheduled 2021-01-17 INFLUENZA VACCINE (#1) [facility] 00:00:00 [code = INFLUENZA Medical Ce nter VACCINE (#1)] Future Scheduled 2021-01-17 INFLUENZA VACCINE (#1) [facility] 00:00:00 [code = INFLUENZA Medical Ce nter VACCINE (#1)] Future Scheduled 2020-11-16 Screening for malignant [facility] Test 21:54:17 neoplasm of colon of Medicin e (procedure) [code = 039313354] Future Scheduled 2020-11-16 Screening for malignant [facility] Test 21:54:17 neoplasm of breast of Medici ne (procedure) [code = 451740727] Future Scheduled 2020-11-16 COVID-19 Vaccine (1) [employer] Test 21:54:17 [code = COVID-19 of Medicine Vaccine (1)] Future Scheduled 2020-11-16 BMI FOLLOW UP PLAN [employer] Test 21:54:17 [code = BMI FOLLOW UP of Med icine PLAN] Future Scheduled 2020-11-16 Hepatitis C screening [employer] Test 21:54:17 (procedure) [code = of Medic ine 954293552] Future Scheduled 2020-11-16 Human immunodeficiency [employer] Test 21:54:17 virus screening of Medicine (procedure) [code = 603474718] Future Scheduled 2020-11-16 Screening for malignant [facility] Test 21:54:17 neoplasm of cervix of Medici ne (procedure) [code = 779801362] Future Scheduled 2020-11-16 TETANUS SHOT (ADULT) [employer] Test 21:54:17 [code = TETANUS SHOT of Medi cine (ADULT)] Future Scheduled 2020-11-16 FLU VACCINE > 6 MONTHS [employer] Test 21:54:17 [code = FLU VACCINE > 6 of M edicine MONTHS] Future Scheduled 2020-09-27 Screening for malignant [facility] Test 10:55:11 neoplasm of colon of Medicin e (procedure) [code = 039633023] Future Scheduled 2020-09-27 Screening for malignant [facility] Test 10:55:11 neoplasm of breast of Medici ne (procedure) [code = 581190554] Future Scheduled 2020-09-27 COVID-19 Vaccine (1) [employer] Test 10:55:11 [code = COVID-19 of Medicine Vaccine (1)] Future Scheduled 2020-09-27 BMI FOLLOW UP PLAN [facility] Test 10:55:11 [code = BMI FOLLOW UP of Med icine PLAN] Future Scheduled 2020-09-27 Hepatitis C screening [facility] Test 10:55:11 (procedure) [code = of Medic ine 795640405] Future Scheduled 2020-09-27 [facility] 10:55:11 virus screening of Medicine (procedure) [code = 591734035] Future Scheduled 2020-09-27 Screening for malignant [facility] [employer] Test 10:55:11 neoplasm of cervix of Medici ne (procedure) [code = 851421367] Future Scheduled 2020-09-27 TETANUS SHOT (ADULT) [employer] Test 10:55:11 [code = TETANUS SHOT of Medi cine (ADULT)] Future Scheduled 2020-09-27 FLU VACCINE > 6 MONTHS [employer] Test 10:55:11 [code = FLU VACCINE > 6 of M edicine MONTHS] Diagnostic Test 2020-08-14 MRI SHOULDER RIGHT WO Expected: [employer] Pending 00:00:00 CONTRAST [code = 30047] 08/14/2020, of M edicine Expires: 08/14/2021 Future Scheduled 2020-05-[address] [facility] Test 00:00:00 (12+) [code = Medical Center DEPRESSION SCREENING (12+)] Future Scheduled 2020-05-[address] [facility] Test 00:00:00 (12+) [code = Medical Center DEPRESSION SCREENING (12+)] Future Scheduled 2018-10-08 DTAP/TDAP/TD VACCINES [facility] 00:00:00 (2 - Td or Tdap) [code Medic al Center = DTAP/TDAP/TD VACCINES (2 - Td or Tdap)] Future Scheduled 2018-10-08 DTAP/TDAP/TD VACCINES [facility] 00:00:00 (2 - Td or Tdap) [code Medic al Center = DTAP/TDAP/TD VACCINES (2 - Td or Tdap)] Future Scheduled 2011-09-11 SHINGLES VACCINES ([address] [facility] Test 00:00:00 2) [code = SHINGLES Medical Center VACCINES (1 of 2)] Future Scheduled 2011-09-11 SHINGLES VACCINES ([address] [facility] Test 00:00:00 2) [code = SHINGLES Medical Center VACCINES (1 of 2)] Future Scheduled 2006 Lipid panel (procedure) [facility] Test 00:00:00 [code = 01871149] Medical Ce nter Future Scheduled 2006 Lipid panel (procedure) [facility] Test 00:00:00 [code = 12230462] Medical Ce nter Future Scheduled 1982 Screening for malignant [facility] Test 00:00:00 neoplasm of cervix Medical C enter (procedure) [code = 431137202] Future Scheduled 1982 Screening for malignant [facility] Test 00:00:00 neoplasm of cervix Medical C enter (procedure) [code = 360734538] Future Scheduled 1979-09-11 HEPATITIS C SCREENING [facility] 00:00:00 [code = HEPATITIS C Medical Center SCREENING] Future Scheduled 1979-09-11 HEPATITIS C [facility]CRE[facility]ING [facility] 00:00:00 [code = HEPATITIS C Medical Center SCREENING] Future Scheduled 1973 COVID-19 VACCINE (1) [facility] Test 00:00:00 [code = COVID-[address] VACCINE (1)] Future Scheduled 1973 COVID-19 VACCINE (1) [facility] 00:00:00 [code = COVID-[address] VACCINE (1)] Future Scheduled 1961 Screening for malignant [facility] 00:00:00 neoplasm of breast Medical C enter (procedure) [code = 919412499] Future Scheduled 1961 Screening for malignant [facility] 00:00:00 neoplasm of colon Medical Ce nter (procedure) [code = 166065077] Future Scheduled 1961 Screening for malignant [facility] 00:00:00 neoplasm of breast Medical C enter (procedure) [code = 988413077] Future Scheduled 1961 Screening for malignant [facility] 00:00:00 neoplasm of colon Medical Ce nter (procedure) [code = 640930375] Future Scheduled ORT - XR SHOULDER RIGHT Ordered: [employer] [facility] 3V (CHARGE ONLY) [code 08/14/2020 of Me dicine = 47164] Future Scheduled Screening for malignant [employer] [facility] neoplasm of colon of Medicin e (procedure) [code = 598685866] Future Scheduled Screening for malignant [employer] Test neoplasm of breast of Medici ne (procedure) [code = 267354597] Future Scheduled COVID-19 Vaccine (1) [employer] [facility] [code = COVID-19 of Medicine Vaccine (1)] Future Scheduled Hepatitis C screening [employer] [facility] (procedure) [code = of Medic ine 289012598] Future Scheduled Human immunodeficiency [employer] Test virus screening of Medicine (procedure) [code = 501449915] Future Scheduled Screening for malignant [facility] [employer] Test neoplasm of cervix of Medici ne (procedure) [code = 867516248] Future Scheduled ZOSTER VACCINE (1 of 2) [facility] Test [code = ZOSTER VACCINE of Me dicine (1 of 2)] Future Scheduled TETANUS SHOT (ADULT) [employer] [facility] [code = TETANUS SHOT of Medi cine (ADULT)] Future Scheduled FLU VACCINE > 6 MONTHS [employer] [facility] [code = FLU VACCINE > 6 of M edicine MONTHS] Encounters Start End Encounter Admission Attending Care Care Encounter Source Date/Time Date/Time Type Type Clinicians Facility Department ID 2021-03-[address] [facility] [id number] [facility] 14:51:01 ity [facility] 2021-03-[address] [facility] [id number] Univers 14:37:31 [facility] 2021-02-24 Outpatient [facility], [facility] Surgery [id number] [facility] 15:07:40 [place] 2020-11-15 2020-11-15 Office ELLY Lebron [id number] [place] [address] 13:08:28 16:02:36 Visit Santiago B AMBULATOR 350.1.13.21 College Y 0.2.7.2.686 of [id number] [facility] 600 e 2020-09-27 2020-09-27 Office ELLY Lebron 1.2.840.[id number] [place] [address] 10:50:46 11:36:15 Visit Santiago B AMBULATOR 350.1.13.21 College Y 0.2.7.2.686 of [id number] [facility] 600 e 2020-09-24 2020-09-[address] [facility] [id number] 00:[facility] 00[facility]00 [facility] 2020-09-23 2020-09-[address] [facility] [id number] [id number] 00:[facility] 00:[facility]00 [facility] 2020-09-22 2020-09-[address] [facility] [id number] [id number] 00:[facility] 00:00[facility]00 [facility] 2020-09-21 2020-09-[address] [facility] [id number] 06:02:00 14:50:[address] [facility] 2020-09-21 2020-09-[address] [facility] [id number] 11:00:00 14:30:00 [facility] 2020-09-21 2020-09-[address] [facility] [id number] [facility] 09:51:00 13:14:00 Event Pardo Zeinab Cadenaarita [facility] 2020-09-21 2020-09-21 Travel [facility] [id number] [facility] 00[facility]00 [facility] 2020-09-19 2020-09-19 [facility] [id number] 00:00:00 00:00:[address] [facility] 2020-09-13 2020-09-13 [facility] [id number] 09:00:00 23:59:00 Encounter [facility] 2020-09-13 2020-09-13 Outpatient [facility] [id number] [facility] 00:00:00 00:00:00 2020-08-14 2020-08-14 Outpatient [facility] [id number] [facility] 13:35:49 13:35:49 Colleg e of Medicin e 2020-08-14 2020-08-14 Office ELLY Lebron 1.2.840.114 [id number] [facility] 12:59:26 13:19:26 Visit Santiago B AMBULATOR 350.1.13.21 College Y 0.2.7.2.686 of [id number] Medi ruby 600 e 2020-07-24 2020-07-24 [facility] 1.2.840.114 [id number] Univers 14:13:03 23:59:00 Encounter [facility] 350.1.13.10 ity of Surgical 4.2.7.2.686 Ar as Specialti [id number] Al dical es [address] [place] 2020-07-24 2020-07-24 [facility] 1.2.840.114 [id number] 14:13:03 23:59:00 Encounter [facility] 350.1.13.10 Surgical 4.2.7.2.686 Specialti [id number] es [address] [place] 2020-07-24 2020-07-24 [facility] [id number] Univers 14:11:03 14:52:35 Visit Emelyn Cee [facility] 350.1.13.10 it y of Surgical 4.2.7.2.686 Ar as Specialti [id number] Me dical es 198 [facility] 2020-07-24 2020-07-24 [facility] [id number] 14:11:03 14:52:35 Visit Emelyn Cee [facility] 350.1.13.10 Surgical 4.2.7.2.686 Specialti [id number] es [address] [place] 2020-07-24 2020-07-24 [facility] [id number] Univers 14:15:00 14:15:00 EMELYN [id number] [facility] 2020-07-24 2020-07-24 [facility] [id number] Univers 14:15:00 14:15:00 EMELYN [facility] 2020-02-07 2020-02-07 Outpatient [facility] [id number] Univers 08:00:00 08:00:00 BRIT [facility] 2020-01-16 2020-01-17 Emergency Marlen Pond [facility] [[email or web address]] 1.2.840 .114 [id number] Univers 10:51:00 16:50:00 Vincenzo Vivar 350.1.13.10 ity [place] 4.2.7.2.686 [facility] [id number] [place] 013110 [place] 2020-01-14 2020-01-14 Emergency Anais [facility] [[email or web address]] [id number] Univers 04:47:00 06:47:00 Davis Caldwell 350.1.13.10 i ty [place] 4.2.7.2.686 [facility] s Dr[place]coll [id number] [place] 013114 [place] 2019-10-07 2019-10-07 [facility] [id number] [facility] 00:00:00 00:00:00 Brit [place] 350.1.13.10 i [place].2.[place] [phone] Al dical nal 134 [facility] 2019-02-04 2019-02-04 Office Farzad [facility] [[email or web address]] [id number] [facility] 08:19:51 08:42:41 Visit Brit [place] 350.1.13.10 i [place] 4.2.7.2.686 [place] [phone] [facility] 134 [facility] Results Test Description Test Time Test Comments Results Result Comments Source VITAMIN D, 25-OH 2020-01-17 21:48:00 Test Item Value Reference Range Interpretation Comme nts VIT D 25OH (test code = 92307-3) 28 ng/mL 25-80 CHRIST (test code = CHRIST) Deficiency: <20 ng/mLInsufficiency: 20-24 ng/mLOptimal: 25-80 ng/mL Lab Interpretation (test code = 97805-2) Normal [facility]NEUM[facility]OCCAL [id number] 16:02:00 Test Item Value Reference Range Interpretation Comments S. pneumoniae antigen (test code = Negative Negative 5573358360) Lab Interpretation (test code = Normal 13720-7) [facility] MarshallLEGIONELLA URINARY ANTIGEN [id number] 16:02:00 Test Item Value Reference Range Interpretation Comments Legionella Urinary Negative Negative Antigen (test code = 2344315189) CHRIST (test code = CHRIST) Negative for [...] test. Lab Interpretation (test Normal code = 66560-2) [facility] MarshallC-REACTIVE [id number] 15:33:00 Test Item Value Reference Range Interpretation Comments CRP (test code = 5409280045) 1.0 mg/dL <0.8 H Lab Interpretation (test code = Abnormal 95649-4) [facility] Marshall[facility]INE [id number] 12:07:00 Test Item Value Reference Range Interpretation Comments URINE CULTURE (test No aerobic growth (< code = 630-4) 1000 CFU/mL) [facility] MarshallPROCALCITONIN2020-08-31 02:15:00 Test Item Value Reference Range Interpretation Comments Procalcitonin (test 0.03 ng/mL <0.07 code = 6781400693) CHRIST (test code = CHRIST) INTERPRETATION OF [...] lung abscess/empyema. For further information please refer to:[email or web address] Lab Interpretation Normal (test code = 30188-8) [facility] MarshallXR CHEST 1 VW [id number] 18:20:03 Hazy bilateral airspace and interstitial opacities are consistent withknown Covid-19 infection. Disclaimer: Generally, the findings on chest imaging in COVID-19 are notspecific, and overlap with otherinfections, including influenza, H1N1,SARS and MERS. According to the Centers for Disease Control (CDC) and recent statement ofthe [employer] [employer], viral testing remains the [...] is normal. No acute osseous structure abnormality. [facility], Radiant Results Inft User - 01/16/2020 1:21 PM CDTEXAM:XR CHEST 1 VW COVIDHISTORY: 59 years-old; Female; sob covid + COMPARISON: 10/26/2016 ra diographFINDINGS:Lungs/Pleura: Hazy airspace and interstitial opacities in the [...] Disease Control (CDC) and recent statement ofthe [employer] [employer], viral testing remains the only specificmethodof diagnosis. Confirmation with the viral test is required, even ifradiologic findings are suggestive of COVID-[address]Preliminary Report Dictated by Resident: Leonila Torres MD., have reviewed this study and agree with theabove report.[facility] MarshallFERRITIN [id number] 17:30:00 Test Item Value Reference Range Interpretation Comments FERRITIN (test code = 66.4 ng/mL 11-264 4386444409) CHRIST (test code = CHRIST) Biotin has been reported to cause a negative bias, interpret results relative to patient's use of biotin. Lab Interpretation (test Normal code = 21747-0) [facility] MarshallUrinalysis2020-08-30 17:07:00 Test Item Value Reference Range Interpretation Comments APPEARANCE (test code = Clear Clear 9849212863) COLOR (test code = Yellow Yellow 3958091259) PH (test code = 4.8-8.0 4206506540) SP GRAVITY (test code = 1.003-1.030 7084412597) GLU U QUAL (test code = Normal Normal 7185193565) BLOOD (test code = Negative Negative 6051589274) KETONES (test code = 80 mg/dL Negative A 0817229190) PROTEIN (test code = Negative Negative 2887-8) UROBILIN (test code = Normal Normal 5933335934) BILIRUBIN (test code = Negative Negative 3162628178) NITRITE (test code = Negative Negative 6428090384) LEUK JOSE (test code = Negative Negative 2058936680) RBC/HPF (test code = See_Comment [Autom ated message] 7882076044) The system VHX generated this result transmitted ref erence range: 0 - 3 HP F. The reference range was not used to int erpret this result as normal/abnormal . WBC/HPF (test code = See_Comment [Autom ated message] 5794261200) The system VHX generated this result transmitted ref erence range: 0 - 5 HP F. The reference range was not used to int erpret this result as normal/abnormal . BACTERIA (test code = Few Negative A 7687715471) MUCOUS (test code = Slight Negative LPF A 3781827791) SQ EPITH (test code = HPF 6446734788) Lab Interpretation (test Abnormal code = 89598-1) [id number] 17:07:00 Test Item Value Reference Range Interpretation Comments TROPONIN I (test <0.012 See_Comment [Automated code = 2938393524) message] The system which generated this result [...] ? Lab Interpretation Normal (test code = 87687-4) [facility] MarshallN-TERMINAL [id number] 17:04:00 Test Item Value Reference Range Interpretation Comments NT-proBNP (test code 51 pg/mL See_Comment [Autom ated = 2478590709) message] The system which generated this result transmitted reference range : <=125. The reference range was not used to interpret this result as normal/abnormal . CHRIST (test code = CHRIST) Biotin has been reported to cause a negative bias, interpret results relative to patient's use of biotin. Lab Interpretation Normal (test code = 59405-4) [facility] MarshallD-[id number] 17:01:00 Test Item Value Reference Interpretation Comments Range D-DIMER (test code = See_Comment [Autom ated 2162897402) message] The system which generated this result [...] diagnosis. Lab Interpretation Normal (test code = 21684-1) [facility] MarshallCOVID-19 (ID NOW RAPID TESTING)2020-01-16 16:59:00 Test Item Value Reference Range Interpretation Comments SARS-CoV-2 Rapid ID NOW Positive Not Detected A (test code = 19663-4) CHRIST (test code = CHRIST) ID NOW COVID-19 Assay is an isothermal nucleic acid amplification test intended for the qualitative detection of nucleic acid from SARS-CoV-2 viral RNA in nasopharyngeal (YOLK SPRAY DRIER) specimens. It is used under Emergency Use [...] indicated. Lab Interpretation Abnormal (test code = 19560-2) [facility] Metabolic Panel (NA, K, CL, CO2, GLUCOSE, BUN, CREATININE, CA)2020-01-16 16:55:00 Test Item Value Reference Range Interpretation Comments NA (test code = 134 mmol/L 135-145 L 1496138924) K (test code = 3.9 mmol/L 3.5-5 9568118588) CL (test code = 102 mmol/L 98-108 8011208844) CO2 TOTAL (test code = 25 mmol/L 23-31 2769922490) AGAP (test code = 2-16 2927638279) BUN (test code = 11 mg/dL 7-23 8381868750) GLUCOSE (test code = 100 mg/dL 70-110 4354630179) CREATININE (test code = 0.62 mg/dL 0.5-1.04 6465850285) CALCIUM (test code = 8.4 mg/dL 8.6-10.6 L 8268384289) eGFR Calculation mL/min/1.73m2 (Non-) (test code = 1791900629) eGFR Calculation mL/min/1.73m2 () (test code = 3825621157) CHRIST (test code = CHRIST) Association of [...] tests). Lab Interpretation Abnormal (test code = 72222-0) [facility] Marshall[facility]atic Function Panel (ALB, T.PRO, BILI T, BU/BC, ALT, AST, ALK PHOS)2020-01-16 16:55:00 Test Item Value Reference Range Interpretation Comments TOTAL BILI (test code = 5527501636) 0.5 mg/dL 0.1-1.1 BILI UNCON (test code = 8628197857) 0.6 mg/dL 0.1-1.1 BILI CONJ (test code = 4267063738) 0.0 mg/dL 0-0.3 T PROTEIN (test code = 2508661298) 7.2 g/dL 6.3-8.2 ALBUMIN (test code = 2395179176) 4.3 g/dL 3.5-5 ALK PHOS (test code = 4658613188) 81 U/L 34-122 ALTv (test code = 1742-6) 26 U/L 5-35 AST(SGOT) (test code = 0105157408) 36 U/L 13-40 Lab Interpretation (test code = Normal 29512-9) [facility] MarshallLACTATE [id number] 16:55:00 Test Item Value Reference Range Interpretation Comments LDH (test code = 4119068144) 518 U/L 300-600 Lab Interpretation (test code = Normal 04152-7) [facility] MarshallFIBRINOGEN2020-08-30 16:53:00 Test Item Value Reference Range Interpretation Comments Fibrinogen (test code = 1727322556) 380 mg/dL 214-470 Lab Interpretation (test code = Normal 45953-0) [facility] MarshallaPTT2020-08-30 16:53:00 Test Item Value Reference Range Interpretation Comments APTT Patient (test See_Comment [Automat ed code = 3173-2) message] The system which generated this result transmitted reference range : 23 - 38 Seconds . The reference range was not used to interpr et this result as normal/abnormal . CHRIST (test code = CHRIST) The [facility] [[email or web address]] patient population mean normal value for aPTT is 30 seconds. Lab Interpretation Normal (test code = 39730-9) [facility] MarshallProthrombin Time (PT) / [id number] 16:51:00 Test Item Value Reference Range Interpretation [...] tions. Lab Interpretation (test Normal code = 20841-6) [facility] MarshallCBC with [id number] 16:45:00 Test Item Value Reference Range Interpretation Comments WBC (test code = See_Comment L [Automated 1890-2) message] The sy stem which generated this result transmitted reference range : 4.30 - 11.10 10*3/?L. The reference range was not used to interpret this result as normal/abnormal . RBC (test code = See_Comment [Automated 439-8) message] The sy stem which generated this [...] RDW-SD (test code = 39.1 fL 39-49.9 82839-2) RDW-CV (test code = 12.4 % 12-15.5 788-0) PLT (test code = See_Comment L [Automated 777-3) message] The sy stem which generated this result transmitted reference range : 166 - 358 10*3/ ?L. The reference r camryn was not used to interpret this result as normal/abnormal . MPV (test code = 11.2 fL 9.5-12.9 04568-0) IPF % (test code = 4.0 % 1.3-7.7 Platelet count 5963847945) measured by fluorescence method. NRBC/100 WBC (test See_Comment [Automat ed code = 2832579430) message] The system which generated this result transmitted reference range : 0.0 - 10.0 /100 WBCs. The refer ence range was not u sed to interpret th is result as normal/abnormal . NRBC x10^3 (test code <0.01 See_Comment [Auto mated = 5406251685) message] The s ystem which generated this result transmitted reference range : 10*3/?L. The reference range was not used to interpret this result as normal/abnormal . GRAN MAT (NEUT) % 67.5 % (test code = 770-8) IMM GRAN % (test code 0.60 % = 8326408388) LYMPH % (test code = 22.2 % 736-9) MONO % (test code = 9.4 % 5905-5) EOS % (test code = 0.0 % 713-8) BASO % (test code = 0.3 % 706-2) GRAN MAT x10^3(ANC) 2.37 10*3/uL 1.88-7.09 (test code = 4919081233) IMM GRAN x10^3 (test <0.03 0-0.06 code = 5115154541) LYMPH x10^3 (test code 0.78 10*3/uL 1.32-3.29 L = 731-0) MONO x10^3 (test code 0.33 10*3/uL 0.33-0.92 = 742-7) EOS x10^3 (test code = <0.03 0.03-0.39 L 711-2) BASO x10^3 (test code <0.03 0.01-0.07 = 704-7) Lab Interpretation Abnormal (test code = 97464-0) [facility] MarshallLactic Acid Whole [id number] 16:34:00 Test Item Value Reference Range Interpretation Comments LACTIC ACID (test code = 1.02 mmol/L 0.3-2.6 9983345096) Lab Interpretation (test code = Normal 90609-5) [facility] Marshall[facility] VENOUS BLOOD [id number] 16:34:00 Test Item Value Reference Range Interpretation Comments PH (test code = 7.32-7.42 H 8890736568) PCO2 EDDIE (test code = See_Comment L [Auto mated message] 4663868153) The system Appsembler generated this result transmitted ref erence range: 41 - 51 mmHg. The reference r camryn was not used to interpret this result as normal/abnor mal. PO2 EDDIE (test code = See_Comment HH [Autom ated message] 0083123821) The system Appsembler generated this result transmitted ref erence range: 25 - 40 mmHg. The reference r camryn was not used to interpret this result as normal/abnor mal. HCO3 EDDIE (test code = See_Comment [Auto mated message] 1227082091) The system Appsembler generated this result transmitted ref erence range: 24 - 28 mEq/L. The reference r camryn was not used to interpret this result as normal/abnor mal. AC VBE(BEAKER) (test mEq/L code = 4937751488) Lab Interpretation (test Abnormal code = 68411-8) [facility] MarshallUrinalysis2020-08-28 10:25:00 Test Item Value Reference Range Interpretation Comments APPEARANCE (test code = Clear Clear 0573213291) COLOR (test code = Yellow Yellow 0133156146) PH (test code = 4.8-8.0 7996098213) SP GRAVITY (test code = 1.003-1.030 4884897079) GLU U QUAL (test code = Normal Normal 6973685908) BLOOD (test code = Negative Negative 8815870461) KETONES (test code = 5 mg/dL Negative A 6773774682) PROTEIN (test code = Negative Negative 2887-8) UROBILIN (test code = Normal Normal 8625423611) BILIRUBIN (test code = Negative Negative 7917244832) NITRITE (test code = Negative Negative 5939197093) LEUK JOSE (test code = Negative Negative 4677451205) RBC/HPF (test code = See_Comment [Autom ated message] 2782512168) The system VHX generated this result transmitted ref erence range: 0 - 3 HP F. The reference range was not used to int erpret this result as normal/abnormal . WBC/HPF (test code = See_Comment [Autom ated message] 2589827475) The system VHX generated this result transmitted ref erence range: 0 - 5 HP F. The reference range was not used to int erpret this result as normal/abnormal . BACTERIA (test code = Negative Negative 4279101888) MUCOUS (test code = Slight Negative LPF A 5115340497) SQ EPITH (test code = HPF 4140138771) Lab Interpretation (test Abnormal code = 99017-5) [facility] Marshall[facility] Metabolic [id number] 10:23:00 Test Item Value Reference Range Interpretation Comments NA (test code = 136 mmol/L 135-145 2810801268) K (test code = 4.1 mmol/L 3.5-5 0852226164) CL (test code = 104 mmol/L 98-108 5062284262) CO2 TOTAL (test code = 26 mmol/L 23-31 5999299895) AGAP (test code = 2-16 5723425293) BUN (test code = 11 mg/dL 7-23 7481056554) GLUCOSE (test code = 100 mg/dL 70-110 6997277212) CREATININE (test code 0.70 mg/dL 0.5-1.04 = 2449753854) TOTAL BILI (test code 0.6 mg/dL 0.1-1.1 = 2744738359) CALCIUM (test code = 8.6 mg/dL 8.6-10.6 1552074571) T PROTEIN (test code = 7.3 g/dL 6.3-8.2 0420782731) ALBUMIN (test code = 4.2 g/dL 3.5-5 5941896200) ALK PHOS (test code = 77 U/L 34-122 6769284617) ALTv (test code = 34 U/L 5-35 1742-6) AST(SGOT) (test code = 37 U/L 13-40 9561746809) eGFR Calculation mL/min/1.73m2 (Non-) (test code = 0039061550) eGFR Calculation mL/min/1.73m2 () (test code = 5562445097) CHRIST (test code = CHRIST) Association of [...] or urine or abnormalities in imaging tests). [facility] MarshallLipase, [id number] 10:23:00 Test Item Value Reference Range Interpretation Comments LIPASE (test code = 6861605264) 242 U/L 0-220 H Lab Interpretation (test code = Abnormal 06319-8) [facility] MarshallCB with [id number] 10:12:00 Test Item Value Reference Range Interpretation [...] RDW-SD (test code = 40.4 fL 39-49.9 50568-7) RDW-CV (test code = 12.4 % 12-15.5 788-0) PLT (test code = See_Comment L [Automated 777-3) message] The sy stem which generated this result transmitted reference range : 166 - 358 10*3/ ?L. The reference r camryn was not used to interpret this result as normal/abnormal . MPV (test code = 10.9 fL 9.5-12.9 62164-4) NRBC/100 WBC (test See_Comment [Automat ed code = 3001007818) message] The system which generated this result transmitted reference range : 0.0 - 10.0 /100 WBCs. The refer ence range was not u sed to interpret th is result as normal/abnormal . NRBC x10^3 (test code <0.01 See_Comment [Auto mated = 0877818854) message] The s ystem which generated this result transmitted reference range : 10*3/?L. The reference range was not used to interpret this result as normal/abnormal . GRAN MAT (NEUT) % 56.1 % (test code = 770-8) IMM GRAN % (test code 0.50 % = 4179722080) LYMPH % (test code = 29.4 % 736-9) MONO % (test code = 13.1 % 5905-5) EOS % (test code = 0.7 % 713-8) BASO % (test code = 0.2 % 706-2) GRAN MAT x10^3(ANC) 2.31 10*3/uL 1.88-7.09 (test code = 5113761089) IMM GRAN x10^3 (test <0.03 0-0.06 code = 0287554605) LYMPH x10^3 (test code 1.21 10*3/uL 1.32-3.29 L = 731-0) MONO x10^3 (test code 0.54 10*3/uL 0.33-0.92 = 742-7) EOS x10^3 (test code = 0.03 10*3/uL 0.03-0.39 711-2) BASO x10^3 (test code <0.03 0.01-0.07 = 704-7) Lab Interpretation Abnormal (test code = 18366-0) [facility] [facility]
[2021-10-16 21:51] LABS: Absolute Lymphocytes (CBC) 2.7 K/uL (0.7-4.9); Hematocrit 39.4 % (36.0-45.0); Lymphocytes % 31.4 % (15.3-44.8); MPV 9.1 fL (7.6-11.3)
--- NOTE | 2021-10-16 21:58 | RAD REPORT ---
EXAM DESCRIPTION: RAD - Chest Single View - 10/16/2021 9:47 pm CLINICAL HISTORY: AMS Chest pain. COMPARISON: Chest Single View dated 09/26/2021; Chest Single View dated 03/20/2020; Chest Single View dated 01/20/2020; Chest Pa And Lat (2 Views) dated 03/03/2019 FINDINGS: Portable technique limits examination quality. The lungs are grossly clear. The heart is normal in size. No displaced fractures. IMPRESSION: No acute intrathoracic process suspected.
--- NOTE | 2021-10-16 21:58 | RAD REPORT ---
EXAM DESCRIPTION: RAD - Shoulder Right 2 View - 10/16/2021 9:47 pm CLINICAL HISTORY: PAIN COMPARISON: Shoulder Right 2 View dated 07/27/2020 FINDINGS: Mild degenerative changes are present. No acute fracture or dislocation seen.
--- NOTE | 2021-10-16 22:00 | RAD REPORT ---
EXAM DESCRIPTION: CT - CTHCSPWOC - 10/16/2021 9:51 pm CLINICAL HISTORY: Trauma, head and neck injury. Altered mental status, headache, fall COMPARISON: Head C Spine Mpr Wo Con dated 07/27/2020; Soft Tissue Neck W/Contr dated 10/23/2016; Soft T issue Neck W/Contr dated 10/21/2016 TECHNIQUE: Axial 5 mm thick images of the head were obtained. Axial 2 mm thick images of the cervical spine were obtained with sagittal and coronal reconstruction images generated and reviewed. All CT scans are performed using dose optimization technique as appropriate and may include automated exposure control or mA/KV adjustment according to patient size. FINDINGS: CT HEAD WITHOUT CONTRAST: No acute hemorrhage, hydrocephalus or extra-axial collection is identified.No areas of brain edema or midline shift. The paranasal sinuses and mastoids are clear.The calvarium is intact. CT CERVICAL SPINE WITHOUT CONTRAST: No fracture or subluxation.Moderate midcervical degenerative changes.No prevertebral soft tissues swe lling is identified. IMPRESSION: No acute intracranial or cervical spine findings.
[2021-10-16 22:14] LABS: Potassium 3.4 mmol/L (3.5-5.1)
[2021-10-16 22:15] LABS: Albumin 3.9 g/dL (3.4-5.0); Bilirubin Direct 0.1 mg/dL (0-0.2); Bilirubin Total 0.4 mg/dL (0.2-1.0); Magnesium 2.2 mg/dL (1.8-2.4); Protein, Total 7.2 g/dL (6.4-8.2); Troponin High Sensitivity 5.8 pg/mL (<58.9)
[2021-10-16 22:19] LABS: Protime INR 1.02
[2021-10-16] MEDS ORDERED: KETOROLAC 30 MG/ML INJ ONE (23:26)
[2021-10-16] MEDS ORDERED: ONDANSETRON 4 MG/2 ML VIAL ONE (23:26)
--- NOTE | 2021-10-17 00:01 | ER ---
Nurse's Notes [facility] Name: Marisa Baker Age: 61 yrs Sex: Female : 1960 Arrival Date: 10/16/2021 Time: 20:58 Bed 15 Private MD: Diagnosis: Fall on same level, unspecified;Unspecified superficial injury of other part of head, initial encounter Presentation: 10/16 21:12 Chief complaint: Spouse and/or significant other states: We met at 5:15 at the [employer] and she wasn't acting herself, she doesn't remember going to the [employer], Pt states "I'm just exhausted, i am very tired", pt state was working in flower bed in front yard from 8:15-3 PM, states was holding a bunch of tools when passed out in yard, confirms LOC, states pt reported yesterday blood in stool. Coronavirus screen: Vaccine status: Patient reports receiving the 1st dose of the Covid vaccine. At this time, the client does not indicate any symptoms associated with coronavirus-19. Ebola Screen: No symptoms or risks identified at this time. Initial Sepsis Screen: Does the patient meet any 2 criteria? No. Patient's initial sepsis screen is negative. Does the patient have a suspected source of infection? No. Patient's initial sepsis screen is negative. Risk Assessment: Do you want to hurt yourself or someone else? Patient reports no desire to harm self or others. Onset of symptoms was October 16, 2021. 21:12 Method Of Arrival: Wheelchair ll3 21:12 Acuity: YESSI 3 ll3 Triage Assessment: 21:17 General: Appears uncomfortable, Behavior is cooperative, drowsy, flat, quiet. Pain: ll3 Complains of pain in right temporal area Pain currently is 7 out of 10 on a pain scale. Neuro: Level of Consciousness is awake, alert, obeys commands, Oriented to person, place, time, situation, Reports headache a syncopal episode. Neuro: Reports dizziness, numbness in left quadriceps. GI: Parent/caregiver reports the patient having nausea. Derm: Skin is pink, warm \\T\\ dry. Historical: - Allergies: 21:17 Adhesives; ll3 21:17 Codeine; ll3 21:17 diphenhydramine HCl; irritability; ll3 - PMHx: 21:17 "small blood clot somewhere"; CVA; ll3 - Immunization history:: Client reports receiving the Kuldip \\T\\ Kuldip single-dose vaccine. - Social history:: Smoking status: Patient/guardian denies using tobacco. Screenin:03 Abuse screen: Denies threats or abuse. Denies injuries from another. Nutritional per screening: No deficits noted. Tuberculosis screening: No symptoms or risk factors identified. Fall Risk None identified. Assessment: 22:00 Reassessment: Patient appears in no apparent distress at this time. No changes from per previously documented assessment. I recv'd the pt to room #15 \\T\\ 2030. Per the pt's report, she was working in the yard and she believes, she became too hot and may have "passed out". She has no visible injuries, but c/o left shoulder pain. She is in NAD. 10/17 00:30 Reassessment: Patient complaint of headache, Provider notified; Reports headache from lp1 continued noises around in ER rooms. Vital Signs: 10/16 21:12 BP 151 / 99; Pulse 82; Resp 20; Temp 98.0(TE); Pulse Ox 98% on R/A; Weight 74.84 kg; ll3 Height 5 ft. 3 in. (160.02 cm); Pain 7/10; 22:03 BP 158 / 89; Pulse 72; Resp 18; Temp 98.0; Pulse Ox 100% on R/A; per 10/17 00:30 BP 136 / 90; Pulse 68; Resp 18; Pulse Ox 98% on R/A; Pain 6/10; lp1 10/16 21:12 Body Mass Index 29.23 (74.84 kg, 160.02 cm) ll3 ED Course: 10/16 20:58 Patient arrived in ED. ja2 21:07 Luis M Melgar NP is PHCP. pm1 21:07 David Williamson MD is Attending Physician. pm1 21:12 Evi May RN is Primary Nurse. ll3 21:17 Triage completed. ll3 21:17 Arm band placed on Patient placed in an exam room, on a stretcher, on pulse oximetry. ll3 21:49 XRAY Chest (1 view) In Process Unspecified. EDMS 21:49 Shoulder Right (2 View) XRAY In Process Unspecified. EDMS 21:52 CT Head C Spine In Process Unspecified. EDMS 21:59 CPK Sent. per 21:59 Basic Metabolic Panel Sent. per 22:00 LFT's Sent. per 22:00 Magnesium Sent. per 22:00 NT PRO-BNP Sent. per 22:00 PT-INR Sent. per 22:00 Troponin HS Sent. per 22:00 ETOH Level Sent. per 10/17 01:10 No provider procedures requiring assistance completed. IV discontinued, No lp1 redness/swelling at site. Pressure dressing applied. Administered Medications: 10/16 22:04 Drug: NS 0.9% 1000 ml Route: IV; Rate: 1000 ml; Site: right antecubital; per 23:26 Drug: Ketorolac 30 mg Route: IVP; Site: right antecubital; ag7 23:27 Drug: Zofran (Ondansetron) 4 mg Route: IVP; Site: right antecubital; ag7 10/17 00:31 Drug: NS 0.9% 1000 ml Route: IV; Rate: 1000 ml; Site: right antecubital; lp1 01:09 Follow up: IV Status: Completed infusion; IV Intake: 1000ml lp1 00:45 Drug: HYDROcodone-acetaminophen 5 mg-325 mg 1 tabs Route: PO; lp1 01:09 Follow up: Response: Medication administered at discharge. lp1 Intake: 01:09 IV: 1000ml; Total: 1000ml. lp1 Outcome: 00:00 Discharge ordered by MD. pm1 01:11 Discharged to home ambulatory, with significant other. lp1 01:11 Condition: good 01:11 Discharge instructions given to patient, significant other, Instructed on discharge instructions, follow up and referral plans. Demonstrated understanding of instructions, follow-up care. 01:11 Patient left the ED. lp1 Signatures: Dispatcher [employer] EDMS Christina Mtz RN RN lp1 Luis M Melgar NP TESTER WAFER SUBSTRATE pm1 Loly Burden2 Evi May RN RN ll3 Jeannie Jarrett RN RN bo Glenn, Angela, RN RN ag7
--- NOTE | 2021-10-17 00:02 | EDPHYS ---
Physician Documentation [facility] Name: Marisa Baker Age: 61 yrs Sex: Female : 1960 Arrival Date: 10/16/2021 Time: 20:58 Bed 15 Private MD: ED Physician David Williamson HPI: 10/16 21:14 This 61 yrs old Unknown Female presents to ER via Wheelchair with complaints of Fall pm1 Injury, Closed Head Injury-Adult. 21:14 Details of fall: The patient fell from an upright position, while standing, Patient was pm1 working in the garden. Onset: The symptoms/episode began/occurred this morning. Associated injuries: The patient sustained injury to the head, pain, right side of her head. Severity of symptoms: in the emergency department the symptoms are unchanged. The patient has not experienced similar symptoms in the past. The patient has not recently seen a physician. Patient reports that she has been working on the lawn in the morning. In particular she was shoveling gravel with a shovel. Patient had a syncopal episode and woke up with pain to right side of her head. Patient without any neck pain or any other locations of pain. Patient met up with her at the [employer] around 5:00 and he reported that she is not acting within normal limits. Historical: - Allergies: 21:17 Adhesives; ll3 21:17 Codeine; ll3 21:17 diphenhydramine HCl; irritability; ll3 - PMHx: 21:17 "small blood clot somewhere"; CVA; ll3 - Immunization history:: Client reports receiving the Kuldip \\T\\ Kuldip single-dose vaccine. - Social history:: Smoking status: Patient/guardian denies using tobacco. ROS: 21:14 Constitutional: Negative for fever, chills, and weight loss, Cardiovascular: Negative pm1 for chest pain, palpitations, and edema, Respiratory: Negative for shortness of breath, cough, wheezing, and pleuritic chest pain, Back: Negative for injury and pain, MS/Extremity: Negative for injury and deformity, Skin: Negative for injury, rash, and discoloration. 21:14 Neuro: Positive for headache, Negative for numbness, tingling. 21:14 All other systems are negative. Exam: 21:14 Constitutional: This is a well developed, well nourished patient who is awake, alert, pm1 and in no acute distress. 21:14 Back: No spinal tenderness. No costovertebral tenderness. Full range of motion. Skin: Warm, dry with normal turgor. Normal color with no rashes, no lesions, and no evidence of cellulitis. MS/ Extremity: Pulses equal, no cyanosis. Neurovascular intact. Full, normal range of motion. 21:14 Head/face: Noted is no obvious of injury or deformity except tenderness, that is mild, of the right temporal area. 21:14 Cardiovascular: Exam negative for acute changes, Rate: normal, Rhythm: regular, Pulses: no pulse deficits are appreciated, Heart sounds: normal. 21:14 Respiratory: Exam negative for acute changes, respiratory distress, shortness of breath. 21:14 Abdomen/GI: Exam negative for acute changes, Inspection: abdomen appears normal, Palpation: abdomen is soft and non-tender, in all quadrants. 21:14 Neuro: Exam negative for acute changes, Orientation: is normal, Mentation: is normal, Motor: is normal, moves all fours. Vital Signs: 21:12 BP 151 / 99; Pulse 82; Resp 20; Temp 98.0(TE); Pulse Ox 98% on R/A; Weight 74.84 kg; ll3 Height 5 ft. 3 in. (160.02 cm); Pain 7/10; 22:03 BP 158 / 89; Pulse 72; Resp 18; Temp 98.0; Pulse Ox 100% on R/A; per 10/17 00:30 BP 136 / 90; Pulse 68; Resp 18; Pulse Ox 98% on R/A; Pain 6/10; lp1 10/16 21:12 Body Mass Index 29.23 (74.84 kg, 160.02 cm) ll3 MDM: 10/16 21:14 Patient medically screened. pm1 23:56 Data reviewed: vital signs. Data interpreted: Pulse oximetry: on room air is 100 %. pm1 Interpretation: normal. 23:58 Counseling: I had a detailed discussion with the patient and/or guardian regarding: the pm1 historical points, exam findings, and any diagnostic results supporting the discharge/admit diagnosis, lab results, radiology results, the need for outpatient follow up, to return to the emergency department if symptoms worsen or persist or if there are any questions or concerns that arise at home. 10/16 21:14 Order name: ETOH Level; Complete Time: 22:10 pm10/16 21:14 Order name: Basic Metabolic Panel; Complete Time: 22:38 pm10/16 21:14 Order name: CBC with Diff; Complete Time: 22:10 pm10/16 21:14 Order name: LFT's; Complete Time: 22:38 pm10/16 21:14 Order name: Magnesium; Complete Time: 22:38 pm10/16 21:14 Order name: NT PRO-BNP; Complete Time: 22:38 pm10/16 21:14 Order name: CT Head C Spine; Complete Time: 22:10 pm10/16 21:14 Order name: PT-INR; Complete Time: 22:38 pm10/16 21:14 Order name: Troponin HS; Complete Time: 22:38 pm10/16 21:14 Order name: XRAY Chest (1 view); Complete Time: 22:10 pm10/16 21:14 Order name: CPK; Complete Time: 22:38 pm10/16 21:14 Order name: Shoulder Right (2 View) XRAY; Complete Time: 22:10 pm10/16 21:14 Order name: EKG; Complete Time: 21:15 pm10/16 21:14 Order name: Cardiac monitoring; Complete Time: 21:59 pm10/16 21:14 Order name: EKG - Nurse/Tech; Complete Time: 21:59 pm10/16 21:14 Order name: IV Saline Lock; Complete Time: 21:59 pm10/16 21:14 Order name: Labs collected and sent; Complete Time: 21:59 pm10/16 21:14 Order name: O2 Per Protocol; Complete Time: 21:59 pm10/16 21:14 Order name: O2 Sat Monitoring; Complete Time: 21:59 pm10/16 21:14 Order name: Urine Dipstick-Ancillary (obtain specimen) pm1 Administered Medications: 22:04 Drug: NS 0.9% 1000 ml Route: IV; Rate: 1000 ml; Site: right antecubital; per 23:26 Drug: Ketorolac 30 mg Route: IVP; Site: right antecubital; ag7 23:27 Drug: Zofran (Ondansetron) 4 mg Route: IVP; Site: right antecubital; ag7 10/17 00:31 Drug: NS 0.9% 1000 ml Route: IV; Rate: 1000 ml; Site: right antecubital; lp1 01:09 Follow up: IV Status: Completed infusion; IV Intake: 1000ml lp1 00:45 Drug: HYDROcodone-acetaminophen 5 mg-325 mg 1 tabs Route: PO; lp1 01:09 Follow up: Response: Medication administered at discharge. lp1 Disposition: 07:18 Co-signature as Attending Physician, David Williamson MD. [facility] Disposition Summary: 10/17/21 00:00 Discharge Ordered Location: Home pm1 Problem: new pm1 Symptoms: have improved pm1 Condition: Stable pm1 Diagnosis - Fall on same level, unspecified pm1 - Unspecified superficial injury of other part of head, initial encounter pm1 Followup: pm1 - With: Emergency Department - When: As needed - Reason: Worsening of condition Followup: pm1 - With: Private Physician - When: 2 - 3 days - Reason: Recheck today's complaints, Continuance of care, Re-evaluation by your physician Discharge Instructions: - Discharge Summary Sheet pm1 - Head Injury, Adult pm1 - Fall Prevention in the Home, Adult pm1 Forms: - Medication Reconciliation Form pm1 - Thank You Letter pm1 - Antibiotic Education pm1 - Prescription Opioid Use pm1 Signatures: Dispatcher [employer] EDMS Christina Mtz RN RN 1 Luis M Melgar, COMMUNITY COORDINATOR COMMUNITY COORDINATOR pm1 David Williamson MD MD 7 Evi May RN RN 3 Jeannie Jarrett RN Svetlana Box PA PA sb3 Sheri Smith, RN RN 7
[2021-10-17] MEDS ORDERED: NA CHLORIDE 0.9% 1,000 ML ONE (00:31)
[2021-10-17] MEDS ORDERED: HYDROCODONE/APAP 5/325 MG TAB ONE (00:47)
[2021-10-17 01:16] VITALS: TEMP 98
[2021-10-17 01:20] VITALS: BP 136/90; O2SAT 98
--- NOTE | 2021-10-17 07:51 | EKG ---
Test Date: 2021-10-16 Test Time: 21:37:53 Brick Veneer Maker: MEASUREMENT RESULTS: Intervals: Rate: 64 CA: 142 QRSD: 84 QT: 414 QTc: 427 [place]: P: -3 CA: 142 QRS: 5 T: 43 INTERPRETIVE STATEMENTS: Normal sinus rhythm Normal ECG Compared to ECG 09/26/2021 00:11:29 No significant changes Electronically Signed On 10-17-21 07:50:21 CDT by Stephen Balderas
== END 2021-10-17 01:11 | disposition home or self-care (01) ==
LOC: ER 20:55
DX: S00.80XA Unspecified superficial injury of other part of head, initial encounter (principal); R51.9 Headache, unspecified; W18.30XA Fall on same level, unspecified, initial encounter; Z86.73 Personal history of transient ischemic attack (TIA), and cerebral infarction without residual deficits; Z88.5 Allergy status to narcotic agent; Z88.8 Allergy status to other drugs, medicaments and biological substances; Z91.048 Other nonmedicinal substance allergy status
CPT/HCPCS: 96361; 93005; 85025; 80048; 36415; 80320; 83735; 82550; 85610; 80076; 84484; 83880; 70450; 72125; 71045; 73030; 96375; 96374; 99284; J7030; J2405

== ENCOUNTER 2022-12-12 07:00 | Day surgery (SDC) | payer BC ==
[2022-12-10 08:51] LABS: Absolute Lymphocytes (CBC) 2.1 K/uL (0.7-4.9); Hematocrit 37.7 % (36.0-45.0); Lymphocytes % 36.7 % (15.3-44.8); MCV 82.2 fL (80-100); MPV 8.6 fL (7.6-11.3); Platelets 228 thou/uL (152-406); RBC Red Blood Cell Count 4.58 M/uL (3.86-4.86)
--- NOTE | 2022-12-10 08:52 | RAD REPORT ---
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 Lungs: No evidence of edema or pneumonia. Pleural: No significant pleural effusions or pneumothorax. Cardiac: The heart size is within normal limits. Mediastinum: Within normal limits. Bones: No acute fractures. Other: None IMPRESSION: No acute cardiopulmonary disease.
[2022-12-10 09:01] LABS: Protime INR 1.04
[2022-12-10 09:03] LABS: Potassium 4.3 mEq/L (3.5-5.1)
--- NOTE | 2022-12-10 14:52 | EKG ---
Test Date: 2022-12-10 Test Time: 08:26:12 Horticultural Nursery Assistant: LISA MEASUREMENT RESULTS: Intervals: Rate: 65 NV: 132 QRSD: 90 QT: 404 QTc: 420 [place]: P: 27 NV: 132 QRS: 26 T: 48 INTERPRETIVE STATEMENTS: Sinus rhythm with fusion complexes Low voltage QRS Borderline ECG Compared to ECG 10/16/2021 21:37:53 Fusion complex(es) now present Low QRS voltage now present Electronically Signed On 12-10-22 14:51:39 CDT by Macario Meehan
[~2022-12-12 07:00] MED LIST: ATROPINE SULF 1 MG/10 ML SYR IV ONE; FENTANYL CITR 100 MCG/2 ML ONE; HEPA 1000U/500MLS 2,000 UNIT/1,000 ML BAG IV ONE; LIDOCAINE 1% 20 ML MDV ONE; MIDAZOLAM HCL 2 MG/2 ML INJ ONE
[2022-12-12] MEDS ORDERED: NA CHLORIDE 0.9% 500 ML ONE (07:16)
[2022-12-12 07:45] VITALS: TEMP 97.6
--- NOTE | 2022-12-12 09:42 | OP ---
Date of Procedure: 12/12/2022 Surgeon: DARVIN LOUIE Procedures Performed: 1.Selective bilateral carotid angiogram. 2.Bilateral vertebral artery angiogram. Indications: 1.Carotid artery stenosis. 2.Vertebral artery stenosis. Access: Right femoral artery 4-Chinese closed with manual pressure. Complications: None. Bleeding: Less than 20 mL. Anesthesia: Total sedation time was 30 minutes, used fentanyl and Versed. Description Of Procedure: After risks, benefits, alternatives were explained, the patient agreed to procedure and signed informed consent. The patient was brought into cardiac catheterization laborato , prepped and draped in the usual sterile fashion. Then, I accessed the right femoral artery using micropuncture kit, ultrasound guidance and fluoroscopy, and placed a 4-Chinese [place] sheath and to ok a 4-Chinese 3DRC catheter into the aortic root and engaged the brachiocephalic artery and performed an angiogram of the right carotid and vertebral artery and then engaged the left common carotid luanne ry and took standard views and then placed the catheter in the left subclavian and performed a left v ertebral artery angiogram and then removed the catheter and the sheath, and manual pressure was used for closure with good hemostasis. Findings: 1.Right common carotid, right internal carotid, and right external carotids are all normal. 2.The right vertebral artery is normal. No disease. 3.Left common carotid is normal, left internal carotid artery is normal, the left external carotid h as proximal 50% stenosis. 4.The left vertebral artery at the takeoff, there is 90% stenosis. Conclusion: 1.Severe left vertebral artery stenosis, but widely patent right vertebral artery. 2.Moderate left external carotid artery stenosis. Plan: Medical management. /ELSY Voice ID: [id number] Report ID: [id number]
[2022-12-12 11:18] VITALS: BP 134/78; O2SAT 96
== END 2022-12-12 11:45 | disposition home or self-care (01) ==
LOC: CCL 07:00
PROVIDERS: ATTEND Internal Medicine
DX: I65.02 Occlusion and stenosis of left vertebral artery (principal); I65.22 Occlusion and stenosis of left carotid artery; R07.9 Chest pain, unspecified; R06.02 Shortness of breath; Z87.891 Personal history of nicotine dependence; Z88.5 Allergy status to narcotic agent; Z88.8 Allergy status to other drugs, medicaments and biological substances; Z91.09 Other allergy status, other than to drugs and biological substances
CPT/HCPCS: 93005; 85025; 80048; 36415; 85610; 85730; 71046; 36225; 36222; C1893; Q9966; J2001; J2250; J3010; J7040; 36226; J0461

== ENCOUNTER 2022-12-27 20:32 | Observation (INO) | payer BC ==
--- OUTSIDE RECORDS SUMMARY | 2022-12-27 20:46 | XMS REPORT | Continuity of Care Document ---
:1960 Author Organization [facility] t Address [address] [facility] [address] [place] [address] Care Team Providers Name Role Phone Kavon CUENCA, Nelson Jiang Primary Care Physician [phone] ED LEBRON Attending Clinician Unavailable MAHOGANY MARY Attending Clinician Unavailable Mahogany Mary MD Attending Clinician SERGEY MOON Attending Clinician Unavailable Sergey Moon MD Attending Clinician Rosemary Diaz Attending Clinician Ed Lebron MD Attending Clinician [phone] Robbin Reynoso MD Attending Clinician Zeinab Pardo MD Attending Clinician [phone] Emelyn Yen MD Attending Clinician EMELYN YEN Attending Clinician Unavailable BRIT PANDA Attending Clinician Unavailable Salty LARA, Marlen Steven Attending Clinician Vincenzo Vivar MD Attending Clinician Davis Manzo MD Attending Clinician Brit Panda PA-C Attending Clinician ED LEBRON Admitting Clinician Unavailable MAHOGANY MARY Admitting Clinician Unavailable SERGEY MOON Admitting Clinician Unavailable Cb CUENCA, Vincenzo Admitting Clinician Payers Payer Name Policy Type Policy Number Effective Date Expiration Date S vaughn [employer] [place] - [id number] 2017 00:00:00 OUT OF STATE Problems Condition Condition Condition Status Onset Resolution Last Treating Co mments Source Name Details Category Date Date Treatment Clinician Date Rotator Rotator Disease Active [facility] cuff tear cuff tear 09-21 [facility] 00:00: Medical 00 [place] Biceps Biceps Disease Active [facility] tendonitis tendonitis 09-21 [place] 00:00: Medical [place] History of History of Disease Active [facility] failed failed 09-21 [facility] repair of repair of 00:00: Medi baljinder rotator rotator 00 [place] cuff cuff Lower Lower Disease Active Univers respirator respirator 8-30 it y of y tract y tract 00:00: [place] infection infection 00 Medi baljinder due to due to Branch COVID-19 COVID-19 virus virus Lower Lower Disease Active Univers respirator respirator 8-30 it y of y tract y tract 00:00: [place] infection infection 00 Medi baljinder due to due to Branch COVID-19 COVID-19 virus virus Obesity Obesity Disease Active 2019 Univers (BMI (BMI 6-19 ity of 30-39.9) 30-39.9) 00:00: [place] 00 Medical Branch Cellulitis Cellulitis Disease Active 2017 U nivers 6-07 ity of 00:00: [place] [address] Medical Branch Ex-smoker Ex-smoker Disease Active 2015-[address] [facility]09 [facility] 00:00: Medical 00 [place] Right Right Disease Active 2015-[address] [facility] [address] sided sided 1-08 [facility] weakness weakness 00:00: Medica l 00 [place] Headache Headache Disease Active 2015[facility]05 [facility] 00[facility]: Medical 00 [place] Restless Restless Disease Active 2015-05 [facility] leg [facility]08 [facility] syndrome syndrome 00:00: Medica l 00 Center Hyperlipid Hyperlipid Disease Active 2015-[address] emia emia -08 [facility] 00:00: Medical 00 Center Aphasia Aphasia Disease Active 2015-[address] [facility] 00[facility]: Medical [facility] Center TIA TIA Disease Active 2015-[address] [facility] (transient (transient 1-07 [place] ischemic ischemic 00:00: Medica l attack) attack) 00 Center Encounter Encounter Disease Active Overview: Univers for for 10-08 Formattin ity of routine routine 00:00: g of this [place] gynecologi gynecologi 00 note Me dical baljinder baljinder might be Branch examinatio examinatio different n n from the original. 3- negative colorecta l cards.Lexx mogram Impressio n: BI-RAD: 2, benign. No mammograp hic evidence for malignanc y. Annual mammograp hy is the recommend ation for the patient. 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 Completed for heavy bleeding. Partial hyst. Elevated Elevated Disease Active Overview: Un hieu blood blood 10-08 Formattin ity of pressure pressure 00:00: g of this [place] reading reading 00 note Medical without without might be Branch diagnosis diagnosis different of of from the hypertensi hypertensi original. on on Referral given to local ER Asthma Asthma Disease Active Overview: Univer s 10-08 Formattin ity of 00:00: g of this [place] 00 note Medical might be Branch different from the original. 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 Allergies, Adverse Reactions, Alerts Allergy Allergy Status Severity Reaction(s) Onset Inactive Treating Comm ents Source Name Type Date Date Clinician ADHESIVE DRUG Active Other-Cmnt 2020-0 Univ ers TAPE-LOREN 8-28 ity of ICONES 00:00: [place] 00 Medical Branch DIPHENHY DRUG Active Other-Cmnt 2019-0 Univ ers DRAMINE INGREDI 8 ity of HCL 00:00: [place] 00 Medical Branch CODEINE DRUG Active ITCHING 2019-0 Univers INGREDI 8- ity of 00:00: [place] 00 Medical Branch Adhesive Propensi Active Other - See 2019-0 U nivers Tape-Loren ty to comments 01-13 ity of icones adverse 00:00: [place] reaction 00 Medical s Branch Diphenhy Propensi Active Other - See 2019-0 "makes m e Univers dramine ty to comments 01-13 climb the ity of Hcl adverse 00:00: redman" [place] reaction 00 Medical s Branch Codeine Propensi Active Itching 2019-0 Univer s ty to 01-13 ity of adverse 00:00: [place] reaction 00 Medical s Branch ADHESIVE Allergy Active High Other 2019-[address] [facility] [address] TAPE-LOREN 8-28 [facility] ICONES 00:00: Medical 00 Center DIPHENHY Allergy Active High Other 2019-[address] [facility] [address] DRAMINE 8-28 [facility] HCL 00:00: Medical 00 Center CODEINE Allergy Active Med Itching 2019-[address] [facility] 8-28 [facility] 00:00: Medical 00 Center Adhesive Drug Active Other (See 2019-[address] [facility] [address] Tape-Loren Allergy Comments) 01-13 [facility] icones 00:00: Medical 00 Center Codeine Drug Active Itching 2019-[address] [facility] Allergy -28 [facility] 00:00: Medical 00 Center Diphenhy Drug Active Other (See 2019-0 "makes me [facility] dramine Allergy Comments) 01-13 climb the [place] Hcl 00:00: redman""mt Medical 00 kes vt Center climb the redman" ADHESIVE Allergy Active High Hives 1979-[address] [facility] 2-29 [facility] 00:00: Medical 00 Center Adhesive Drug Active Hives, 1979-[address] [place] [address] [facility] Allergy Itching, 2- paper [facility] Swelling, 00:00: tapes Medical Rash, Other 00 Cente r (See Comments) NO KNOWN Drug Active Univers ALLERGIE Class ity of S [facility] Family History Family Member Diagnosis Comments Start Date Stop Date Source Natural brother Migraines [facility] Maternal grandmother Stroke [facility] Natural sister Seizures [facility] Social History Social Habit Start Date Stop Date Quantity Comments Source History SDOH [facility] Alcohol Frequency Medical Center History SDOH [facility] Alcohol Std Medical Cente r Drinks History SDOH [facility] Alcohol Binge Medical Adrianna ter [facility] of [facility] Cent[facility] Exposure to 2021-10-08 2021-10-18 Not sure University SARS-CoV-2 00:00:00 20:00:00 [facility] [place] [facility] (event) [place] Alcohol intake 2020-09-22 2020-09-22 Ex-drinker [facility] 00:00:00 00:00:00 [facility] Tobacco Comment 2020-09-13 2020-09-13 [facility] age 48 [facility]00 [facility] Alcohol Comment 2016-03-25 2016-03-25 2 [facility] 00:00:00 00:00:00 every 6 months Medical Ce nter Tobacco use and 2012-10-08 2012-10-08 Smokeless tobacco Un iversity of exposure 00:00:00 00:00:00 non-user [facility] Sex Assigned At [birth year] [facility] 00:00:00 00:00:00 [facility] Smoking Status Start Date Stop Date Source Ex-smoker 2012-10-08 00:00:00 2012-10-08 00:00:00 [facility] Medications Ordered Filled Start Stop Current Ordering Indication Dosage Frequency Signature Comments Components Source Medication Medication Date Date Medication? Clinician (SIG) Name Name haloperidol 2022- No 2.5mg 2.5 mg, U nivers lactate 11-03 Intravenou ity o f (HALDOL) 04:30: 04:36 s, ONCE, 1 [place] injection [place] :[place] dose, On Medica l 2.5 mg Sat Branch 11/02/22 at 2330, STAT morpHINE (4 2022- No 4mg 4 mg, Slow Univers mg/mL) 11-03 IV Push, ity of injection 4 03:15: 03:19 ONCE, 1 [place] mg 00 :00 dose, On Medical Sat Branch 11/02/22 at 2215, STAT alum-mag 2022- No 30mL 30 mL, Univer s hydroxide-s 11-03 Oral, ity of imeth 03:15: 03:20 ONCE, 1 [place] (MAALOX 00 :00 dose, On Medical PLUS / Sat Branch MAG-AL 11/02/22 at PLUS) 2215, TRISH 200-200-20 mg/5 mL suspension 30 mL dicyclomine 2022- No 10mg 10 mg, Uni vers (BENTYL) 11-03 Oral, ity of capsule 10 03:10: 03:20 ONCE, 1 [place] mg 00 :00 dose, On Medical Sat Branch 11/02/22 at 2215, TRISH iopamidol 2022- No [id number] 100mL 100 mL, Univers (ISOVUE 11-03 Intravenou ity o f 370-500 mL) 02:45: 02:45 s, ONCE, 1 [place] injection 00 :00 dose, On Medica l 100 mL Sat Branch 11/02/22 at 2145, Routine famotidine 2022- No 20mg 20 mg, Univ ers (PEPCID 11-03 Slow IV ity of (PF)) 02:00: 02:03 Push, [place] injection 00 :00 ONCE, 1 Medical 20 mg dose, On Branch [facility] 11/02/22 at 2100, TRISH morpHINE (4 2022- No 4mg 4 mg, Slow Univers mg/mL) 11-03 IV Push, ity of injection 4 01:30: 01:20 ONCE, 1 [place] mg 00 :00 dose, On Medical Sat Branch 11/02/22 at 2030, STAT NaCl 0.9% 2022- No 1000mL at 999 Uni vers (NS) bolus 11-03 mL/hr, ity of infusion 01:30: 04:37 1,000 mL, Ar as 1,000 mL 00 :00 IV Medical Infusion, Branch ONCE, 1 dose, On 11/02/22 at 2030, TRISH ondansetron 2022- No 4mg 4 mg, Slow Univers (ZOFRAN 11-03 IV Push, ity of (PF)) 01:15: 01:20 ONCE, 1 [place] injection 4 00 :00 dose, On Medi baljinder mg Sat Branch 11/02/22 at 2015, TRISH aspirin 2022- No 324mg 324 mg, Unive rs chewable 11-03 Oral, ity of tablet 324 00:54: 00:55 ONCE, 1 [place] as mg 00 :00 dose, On Medical Sat [place] 11/02/22 at 2000, Routine cefTRIAXone 2021- No 1000mg 1,000 mg, Univers (ROCEPHIN) 10-19 IV ity of 1,000 mg in 06:30: 06:07 Piggyback, [place] NaCl 0.9% 00 :00 ONCE, 1 Medical (NS) 50 mL dose, On [facility] MINI-BAG Fri10/19/21 at 0130, Administer over 30 Minutes, 50 mL
R chery for Anti-Infec tive: Documented Infection< br>Documen ramsey Infection Site: Urine<br&g t;Duration of Therapy: Other (see Comments) alum-mag 2021- No 30mL 30 mL, Univer s hydroxide-s 10-19 Oral, ity of imeth 04:45: 04:00 ONCE, 1 [place] (MAALOX 00 :00 dose, On Medical PLUS / [facility] 10/18/21 Branch MAG-AL at 2345, PLUS) TRISH 200-200-20 mg/5 mL suspension 30 mL ondansetron 2021- No 4mg 4 mg, Slow Univers (ZOFRAN 10-19 IV Push, ity of (PF)) 02:15: 01:48 ONCE, 1 [place] injection 4 00 :00 dose, On Medi baljinder mg Elle 10/18/21 Branch at 2115, TRISH FENTanyl PF 2021- No 75ug 75 mcg, Un hieu (SUBLIMAZE 10-19 Slow IV ity o f (PF)) 02:15: 01:48 Push, [place] injection 00 :00 ONCE, 1 Medical 75 mcg dose, On Branch [facility] 10/18/21 at 2115, STAT iopamidol 2021- No [id number] 70mL 70 mL, U nivers (ISOVUE 6-03 06-03 Intravenou ity o f 370-500 mL) 01:55: 01:55 s, ONCE, 1 [place] injection 00 :00 dose, On Medica l 70 mL Elle 10/18/21 Branch at 2115, Routine pantoprazol 0 Yes [id number] 40mg Take 1 Univers e 40 mg EC 6-03 tablet by ity of tablet 00:00: mouth [place] 00 daily. Medical Branch ondansetron Yes [id number] 4mg Take 1 Univers 4 mg 6-03 tablet by ity of disintegrat 00:00: mouth [place] ing tablet 00 every 4 Medica l (four) Branch hours as needed for Nausea and Vomiting (N/V). cephALEXin Yes [id number] 500mg Take 1 Univers (KEFLEX) 6-03 capsule by ity o f 500 mg 00:00: mouth 3 [place] capsule 00 (three) Medical times Branch daily. pantoprazol 0 Yes [id number] 40mg Take 1 Univers e 40 mg EC 6-03 tablet by ity of tablet 00:00: mouth [place] 00 daily. Medical Branch ondansetron 0 Yes [id number] 4mg Take 1 Univers 4 mg 6-03 tablet by ity of disintegrat 00:00: mouth [place] ing tablet 00 every 4 Medica l (four) Branch hours as needed for Nausea and Vomiting (N/V). cephALEXin 2021-0 Yes [id number] 500mg Take 1 Univers (KEFLEX) 6-03 capsule by ity o f 500 mg 00:00: mouth 3 [place] capsule 00 (three) Medical times Branch daily. ibuprofen 2020-0 Yes 200mg Take [address] [facility] (ADVIL,MOTR 5-06 mg by [facility] IN) 200 MG 15:00: mouth Medica l tablet 36 every 8 Center (eight) hours as needed . DULoxetine 2020-0 Yes 20mg QD Take [address] (CYMBALTA) 5-06 by mouth [facility] 20 MG 15:00: daily. Medical capsule 36 Center ibuprofen 2020-0 Yes 200mg Take [address] [facility] (ADVIL,MOTR 5-06 mg by [facility] IN) 200 MG 15:00: mouth Medica l tablet 36 every 8 Center (eight) hours as needed . DULoxetine Yes 20mg QD Take [address] (CYMBALTA) 5-06 by mouth [facility] 20 MG 15:00: daily. Medical capsule 36 Center ibuprofen 0 Yes 200mg Take [address] [facility] (ADVIL,MOTR 5-06 mg by [facility] IN) 200 MG 15:00: mouth Medica l tablet 36 every 8 Center (eight) hours as needed . DULoxetine Yes 20mg QD Take [address] (CYMBALTA) 5-06 by mouth [facility] 20 MG 15:00: daily. Medical capsule 36 Center gabapentin Yes as needed [facility] (NEURONTIN) 1-21 . [facility] 600 MG 00:00: Medical tablet 00 Center dextroamphe 0 Yes as needed [facility] tamine-amph 1-21 . [facility] etamine 00:00: Medical (ADDERALL 00 Center XR) 20 MG 24 hr capsule gabapentin Yes as needed [facility] (NEURONTIN) 1-21 . [facility] 600 MG 00:00: Medical tablet 00 Center dextroamphe 0 Yes as needed [facility] tamine-amph 1-21 . [facility] etamine 00:00: Medical (ADDERALL 00 Center XR) 20 MG 24 hr capsule gabapentin 0 Yes as needed [facility] (NEURONTIN) 1-21 . [facility] 600 MG 00:00: Medical tablet 00 Center dextroamphe 2020-0 Yes as needed [facility] tamine-amph 1-21 . [facility] etamine 00:00: Medical (ADDERALL 00 Center XR) 20 MG 24 hr capsule rosuvastati 2020-0 Yes QD daily . [facility] (CRESTOR) 1-14 [facility] 5 MG tablet 00:00: Medica l 00 Center rosuvastati 2020-0 Yes QD daily . [facility] n (CRESTOR) 1-14 [facility] 5 MG tablet 00:00: Medica l 00 Center rosuvastati 2020-0 Yes QD daily . [facility] n (CRESTOR) 1-14 [facility] 5 MG tablet 00:00: Medica l 00 [place] cholecalcif 2019- Yes [id number] 1000U Take 1 Univers delmis, 9- tablet by ity of vitamin D3, 00:00: mouth [place] 25 mcg 00 daily. Medical (1,000 Branch unit) tablet cholecalcif 2020-0 Yes [id number] 1000U Take 1 Univers delmis, - [id number] tablet by ity of vitamin D3, 00:00: mouth [place] 25 mcg 00 daily. Medical (1,000 Branch unit) tablet cholecalcif 2020-0 Yes [id number] 1000U Take 1 Univers delmis, 01-17 [id number] tablet by ity of vitamin D3, 00:00: mouth [place] 25 mcg 00 daily. Medical (1,000 Branch unit) tablet cholecalcif 2020-0 Yes [id number] 1000U Take 1 Univers delmis, 9 [id number] tablet by ity of vitamin D3, 00:00: mouth [place] 25 mcg 00 daily. Medical (1,000 Branch unit) tablet cholecalcif 2020-0 Yes [id number] 1000U Take 1 Univers delmis, 01-17 [id number] tablet by ity of vitamin D3, 00:00: mouth [place] 25 mcg 00 daily. Medical (1,000 Branch unit) tablet cholecalcif 2020-0 Yes [id number] 1000U Take 1 Univers delmis, 01-17 [id number] tablet by ity of vitamin D3, 00:00: mouth [place] 25 mcg 00 daily. Medical (1,000 Branch unit) tablet cholecalcif 2020-0 Yes 1000U QD [...] 00 daily . Center (1,000 unit) tablet acetaminoph 2020-0 Yes 500mg Take 500 U [...] mouth ity of mg tablet 22:54: daily. [address] famotidine 2020-0 Yes 40mg Take 40 mg U nivers (PEPCID) 40 8-31 by mouth ity of mg tablet 22:54: daily. [address] acetaminoph 2020-0 Yes 500mg Take 500 [...] mouth ity of mg tablet 22:54: daily. [address] famotidine 2020-0 Yes 40mg Take 40 mg U nivers (PEPCID) 40 8-31 by mouth ity of mg tablet 22:54: daily. [address] acetaminoph 2020-0 Yes 500mg Take 500 [...] mouth ity of mg tablet 22:54: daily. [address] famotidine 2020-0 Yes 40mg Take 40 mg U nivers (PEPCID) 40 8-31 by mouth ity of mg tablet 22:54: daily. [address] acetaminoph 2020-0 Yes 500mg Take 500 [...] mouth ity of mg tablet 22:54: daily. [address] famotidine 2020-0 Yes 40mg Take 40 mg U nivers (PEPCID) 40 8-31 by mouth ity of mg tablet 22:54: daily. [address] azithromyci 2020-0 2020- No 250mg Take 250 Univers n 250 mg 8- 08-31 mg by ity of tablet 20:50: 00:00 mouth [place] 32 :00 daily. Medical Take 500 Branch mg day 1, then 250 mg days 2 to 5. cefdinir 2020-0 2020- No 300mg Take 300 Uni vers 300 mg 8- 08-31 mg by ity of capsule 20:50: 00:00 mouth [place] 32 :00 every 24 Medical (twenty-fo Branch ur) hours. methylPREDN 2020-0 2020- No 4mg Take 4 mg Univers ISolone 4 - 08-31 by mouth ity o f mg tablets 20:50: 00:00 SEE-INSTRU [place] 32 :00 CTIONS. Medical follow Branch package directions acetaminoph 2020-0 Yes 500mg Take 500 U nivers en (TYLENOL 8-31 mg by ity of EXTRA 17:54: mouth [place] STRENGTH) 56 every 6 Medical 500 mg (six) Branch tablet hours as needed. ibuprofen 2020-0 Yes 200mg Take 200 Uni vers (ADVIL) 200 8-31 mg by ity of mg tablet 17:54: mouth [place] 56 every 6 Medical (six) Branch hours as needed. clopidogreL 2020-0 Yes 75mg Take 75 mg Univers (PLAVIX) 75 8-31 by mouth ity of mg tablet 17:54: daily. [address] famotidine 2020-0 Yes 40mg Take 40 mg U nivers (PEPCID) 40 8-31 by mouth ity of mg tablet 17:54: daily. [address] acetaminoph 2020-0 Yes 500mg Take 500 U nivers en (TYLENOL 8-31 mg by ity of EXTRA 17:54: mouth [place] STRENGTH) 56 every 6 Medical 500 mg (six) Branch tablet hours as needed. ibuprofen 2020-0 Yes 200mg Take 200 Uni vers (ADVIL) 200 8-31 mg by ity of mg tablet 17:54: mouth [place] 56 every 6 Medical (six) Branch hours as needed. clopidogreL 2020-0 Yes 75mg Take 75 mg Univers (PLAVIX) 75 8-31 by mouth ity of mg tablet 17:54: daily. [address] Branch famotidine 2020-0 Yes 40mg Take 40 mg U nivers (PEPCID) 40 8-31 by mouth ity of mg tablet 17:54: daily. [address] Branch enoxaparin 2020-0 Yes 40mg 40 mg, Unive rs (LOVENOX) 8 Subcutaneo ity of injection 14:00: us, Q24H, Ar as 40 mg 00 First dose Medical on Fri [place] 01/17/20 at 0900, Until Discontinu ed, Routine famotidine 2020-0 Yes 40mg 40 mg, Unive rs (PEPCID AC) 01-16 Oral, ity of tablet 40 14:00: DAILY, [place] mg 00 First dose Medical on Fri [place] 01/17/20 at 0900, Until Discontinu ed, Routine cholecalcif 2020-0 Yes 1000U 1,000 Univ ers delmis 01-16 Units, ity of (vitamin 14:00: Oral, [place] D3) tablet 00 DAILY, Medical 1,000 Units First dose Br anch on [facility] 01/17/20 at 0900, Until Discontinu ed, Routine benzonatate 2020-0 Yes 100mg 100 mg, Un hieu (TESSALON 01-16 Oral, TID, ity of PERLES) 01:00: First dose [place] capsule 100 00 on [facility] mg 01/16/20 at Branch 1999, Until Discontinu ed, Routine zinc 2020-0 Yes 220mg 220 mg, Univers sulfate 8 Oral, TID, ity of (ORAZINC) 01:00: First dose [place] capsule 220 00 on [facility] mg 01/16/20 at Branch 1999, Until Discontinu ed, Routine ascorbic 2020-0 Yes 500mg 500 mg, Unive rs acid 01-16 Oral, BID, ity of (vitamin C) 01:00: First dose [place] (VITAMIN C) 00 on Sun Medica l tablet 500 01/16/20 at [facility] mg 2000, Until Discontinu ed, Routine albuterol 2020-0 Yes [id number] 2{puff} Inhale 2 Univers 90 8-31 Puffs ity of mcg/actuati 00:00: every 4 Ar as on inhaler 00 (four) Medical hours as Branch needed for Wheezing or Shortness of Breath. ascorbic 2020-0 Yes [id number] 500mg Take 1 U nivers acid, 8-31 tablet by ity of vitamin C, 00:00: mouth [place] 500 mg 00 daily. Medical tablet Branch zinc 2020-0 Yes [id number] 220mg Take 1 Unive rs sulfate 220 8-31 capsule by it y of (50) mg 00:00: mouth [place] capsule 00 daily. Medical Branch dexAMETHaso 2020-0 Yes [id number] 4mg Take 1 Univers ne 4 mg 8-31 tablet by ity of tablet 00:00: mouth [place] 00 daily. Medical Branch albuterol 2020-0 Yes [id number] 2{puff} Inhale 2 Univers 90 8-31 [id number] Puffs ity of mcg/actuati 00:00: every 4 Ar as on inhaler 00 (four) Medical hours as Branch needed for Wheezing or Shortness of Breath. ascorbic 2020-0 Yes [id number] 500mg Take 1 Univers acid, 8-31 [id number] tablet by ity of vitamin C, 00:00: mouth [place] 500 mg 00 daily. Medical tablet Branch zinc 2020-0 Yes [id number] 220mg Take 1 Uni vers sulfate 220 8-31 [id number] capsule by ity of (50) mg 00:00: mouth [place] capsule 00 daily. Medical Branch dexAMETHaso 2020-0 Yes [id number] 4mg Take 1 Univers ne 4 mg 8-31 [id number] tablet by ity of tablet 00:00: mouth [place] 00 daily. Medical Branch albuterol 2020-0 Yes [id number] 2{puff} Inhale 2 Univers 90 8-31 [id number] Puffs ity of mcg/actuati 00:00: every 4 Ar as on inhaler 00 (four) Medical hours as Branch needed for Wheezing or Shortness of Breath. ascorbic 2020-0 Yes [id number] 500mg Take 1 Univers acid, 8-31 [id number] tablet by ity of vitamin C, 00:00: mouth [place] 500 mg 00 daily. Medical tablet Branch zinc 2020-0 Yes [id number] 220mg Take 1 Uni vers sulfate 220 8-31 [id number] capsule by ity of (50) mg 00:00: mouth [place] capsule 00 daily. Medical Branch dexAMETHaso 2020-0 Yes [id number] 4mg Take 1 Univers ne 4 mg 8- [id number] tablet by ity of tablet 00:00: mouth [place] 00 daily. Medical Branch albuterol 2020-0 Yes [id number] 2{puff} Inhale 2 Univers 90 8-31 [id number] Puffs ity of mcg/actuati 00:00: every 4 Ar as on inhaler 00 (four) Medical hours as Branch needed for Wheezing or Shortness of Breath. ascorbic 2020-0 Yes [id number] 500mg Take 1 Univers acid, 8- [id number] tablet by ity of vitamin C, 00:00: mouth [place] 500 mg 00 daily. Medical tablet Branch zinc 2020-0 Yes [id number] 220mg Take 1 Uni vers sulfate 220 8- [id number] capsule by ity of (50) mg 00:00: mouth [place] capsule 00 daily. Medical Branch dexAMETHaso 2020-0 Yes [id number] 4mg Take 1 Univers ne 4 mg 01-16 [id number] tablet by ity of tablet 00:00: mouth [place] 00 daily. Medical Branch albuterol 2020-0 Yes [id number] 2{puff} Inhale 2 Univers 90 8-31 [id number] Puffs ity of mcg/actuati 00:00: every 4 Ar as on inhaler 00 (four) Medical hours as Branch needed for Wheezing or Shortness of Breath. ascorbic 2020-0 Yes [id number] 500mg Take 1 Univers acid, 8 [id number] tablet by ity of vitamin C, 00:00: mouth [place] 500 mg 00 daily. Medical tablet Branch zinc 2020-0 Yes [id number] 220mg Take 1 Uni vers sulfate 220 8-31 [id number] capsule by ity of (50) mg 00:00: mouth [place] capsule 00 daily. Medical Branch dexAMETHaso 2020-0 Yes [id number] 4mg Take 1 Univers ne 4 mg 8- [id number] tablet by ity of tablet 00:00: mouth [place] 00 daily. Medical Branch albuterol 2020-0 Yes [id number] 2{puff} Inhale 2 Univers 90 - [id number] Puffs ity of mcg/actuati 00:00: every 4 Ar as on inhaler 00 (four) Medical hours as Branch needed for Wheezing or Shortness of Breath. ascorbic 2020-0 Yes [id number] 500mg Take 1 Univers acid, 01-16 [id number] tablet by ity of vitamin C, 00:00: mouth [place] 500 mg 00 daily. Medical tablet Branch zinc 2020-0 Yes [id number] 220mg Take 1 Uni vers sulfate 220 01-16 [id number] capsule by ity of (50) mg 00:00: mouth [place] capsule 00 daily. Medical Branch dexAMETHaso 2020-0 Yes [id number] 4mg Take 1 Univers ne 4 mg 01-16 [id number] tablet by ity of tablet 00:00: mouth [place] 00 daily. Medical Branch zinc 2020-0 Yes 220mg QD Take 220 [...] [address] [facility] [facility] sulfate 8-31 mg by [facility] (ZINCATE) 00:00: mouth Medical 220 (50) mg 00 daily . Cente r capsule ascorbic 2020-0 Yes 500mg QD Take [address] acid, 8-31 mg by [facility] vitamin C, 00:00: mouth Medica l (VITAMIN C) 00 daily . Cente r 500 MG tablet albuterol 2020-0 Yes 2{puff} Inhale [address] HFA 8-31 puffs by [facility] (VENTOLIN 00:00: mouth via Med ical HFA) 90 00 inhaler Center mcg/actuati every 6 on inhaler (six) hours as needed . zolpidem 2020-0 Yes 5mg 5 mg, Univers (AMBIEN) 8-30 Oral, ity of tablet 5 mg 23:46: QHSPRN, Ar as 13 Starting [facility] 01/16/20 at 1846, Until Discontinu ed, Routine, Insomnia albuterol 2020-0 Yes 2{puff} 2 Puff, Un hieu (VENTOLIN) 830 Inhalation ity of inhaler 2 23:40: , Q4HPRN, Ar as Puff 38 Starting [facility] 01/16/20 at 1840, Until Discontinu ed, Routine, Wheezing, Shortness of Breath
Is this order for a patient with suspected or confirmed COVID-19 infection? Yes ondansetron 2020-0 Yes 4mg 4 mg, Slow Univers (ZOFRAN 8 IV Push, ity of (PF)) 21:02: Q6HPRN, [place] injection 4 30 Starting Medi baljinder mg [facility] 01/16/20 at 1602, Until Discontinu ed, Routine, Nausea and Vomiting (N/V) acetaminoph 2020-0 Yes 650mg 650 mg, Un hieu en 8-30 Oral, ity of (TYLENOL) 21:02: Q6HPRN, [place] tablet 650 10 Starting Medic al mg [facility] 01/16/20 at 1602, Until Discontinu ed, Routine, Pain (scale 1-3) FENTanyl PF 2020-0 2020- No 50ug 50 mcg, Un hieu (SUBLIMAZE 01-13 Slow IV ity o f (PF)) 12:30: 11:30 Push, [place] injection 00 :00 ONCE, 1 Medical 50 mcg dose, Fri Branch 01/14/20 at 0730, STAT acetaminoph 2019- No 650mg 650 mg, U nivers en 01-13 Oral, ity of (TYLENOL) 12:15: 11:07 ONCE, 1 [place] tablet 650 [place] :00 dose, Fri Medi baljinder mg 01/14/20 at Branch 0715, TRISH iohexol 2019- No 120mL 120 mL, Unive rs (OMNIPAQUE 01-13 Intravenou it y of 350 11:15: 10:57 s, ONCE, 1 [place] BULK-150 00 :00 dose, Fri Medica l mL) 01/14/20 at [place] injection 0615, 120 mL Routine dicyclomine 2019- No [id number] 10mg Take 1 Univers (BENTYL) 10 01-13 capsule by i ty of mg capsule 00:00: 04:59 mouth 4 Ar as 00 :00 (four) Medical times [place] daily for 5 days. dicyclomine 2019- No [id number] 10mg Take 1 Univers (BENTYL) 10 01-13 capsule by i ty of mg capsule 00:00: 04:59 mouth 4 Ar as 00 :00 (four) Medical times [place] daily for 5 days. estradiol 2020-0 Yes [id number] 1{patch Apply 1 Univers 0.025 mg/24 5-21 } Patch to ity of hr patch 00:00: skin [place] 00 weekly. Medical Branch estradiol 2020-0 Yes [id number] 1{patch Apply 1 Univers 0.025 mg/24 5-21 } Patch to ity of hr patch 00:00: skin [place] 00 weekly. [facility] estradiol 2020-0 Yes [id number] 1{patch Apply 1 Univers 0.025 mg/24 5-21 } Patch to ity of hr patch 00:00: skin [place] 00 weekly. [facility] estradiol 2020-0 Yes [id number] 1{patch Apply 1 Univers 0.025 mg/24 5-21 } Patch to ity of hr patch 00:00: skin [place] 00 weekly. [facility] estradiol 2020-0 Yes [id number] 1{patch Apply 1 Univers 0.025 mg/24 5-21 } Patch to ity of hr patch 00:00: skin [place] 00 weekly. [facility] estradiol Yes [id number] 1{patch Apply 1 Univers 0.025 mg/24 5-21 } Patch to ity of hr patch 00:00: skin [place] 00 weekly. [facility] estradiol Yes [id number] 1{patch Apply 1 Univers 0.025 mg/24 5-21 } Patch to ity of hr patch 00:00: skin [place] 00 weekly. [facility] estradiol Yes [id number] 1{patch Apply 1 Univers 0.025 mg/24 5-21 } Patch to ity of hr patch 00:00: skin [place] 00 weekly. [facility] estradiol Yes [id number] 1{patch Apply 1 Univers 0.025 mg/24 9-19 } Patch to ity of hr patch 00:00: skin [place] 00 weekly. [facility] estradiol Yes [id number] 1{patch Apply 1 Univers 0.025 mg/24 9-19 } Patch to ity of hr patch 00:00: skin [place] 00 weekly. [facility] estradiol 2020- No [id number] 1{patch Apply 1 Univers 0.025 mg/24 9-19 05-21 } Patch to ity of hr patch 00:00: 00:00 skin [place] 00 :00 weekly. [facility] estradiol 2019- No [id number] 1{patch Apply 1 Univers 0.025 mg/24 6-24 09-19 } Patch to ity of hr patch 00:00: 00:00 skin [place] 00 :00 weekly. [facility] estradiol 2019- No [id number] 1{patch Apply 1 Univers 0.025 mg/24 6-24 09-19 } Patch to ity of hr patch 00:00: 00:00 skin [place] 00 :00 weekly. [facility] fluticasone Yes [id number] 2{spray Use 2 Univers (FLONASE) 8-23 } Sprays in ity o f 50 00:00: each [place] mcg/actuati 00 nostril Medic al on nasal daily. [place] spray fluticasone Yes [id number] 2{spray Use 2 Univers (FLONASE) 8-23 } Sprays in ity o f 50 00:00: each [place] mcg/actuati 00 nostril Medic al on nasal daily. [place] spray fluticasone Yes [id number] 2{spray Use 2 Univers (FLONASE) 8-23 } Sprays in ity o f 50 00:00: each [place] mcg/actuati 00 nostril Medic al on nasal daily. Branch spray fluticasone 2016- Yes [id number] 2{spray Use 2 Univers (FLONASE) 8-23 } Sprays in ity o f 50 00:00: each [place] mcg/actuati 00 nostril Medic al on nasal daily. Branch spray azithromyci 2016- Yes [id number] 500mg Take 1 Univers n 500 mg 8-23 tablet by ity of tablet 00:00: mouth [place] 00 daily. Medical Branch fluticasone 2016- Yes [id number] 2{spray Use 2 Univers (FLONASE) 8-23 } Sprays in ity o f 50 00:00: each [place] mcg/actuati 00 nostril Medic al on nasal daily. Branch spray fluticasone 2016- Yes [id number] 2{spray Use 2 Univers (FLONASE) 8-23 } Sprays in ity o f 50 00:00: each [place] mcg/actuati 00 nostril Medic al on nasal daily. Branch spray fluticasone 2016- Yes [id number] 2{spray Use 2 Univers (FLONASE) 8-23 } Sprays in ity o f 50 00:00: each [place] mcg/actuati 00 nostril Medic al on nasal daily. Branch spray azithromyci 2016- Yes [id number] 500mg Take 1 Univers n 500 mg 8-23 tablet by ity of tablet 00:00: mouth [place] 00 daily. Medical Branch fluticasone 2016- Yes [id number] 2{spray Use 2 Univers (FLONASE) 8-23 } Sprays in ity o f 50 00:00: each [place] mcg/actuati 00 nostril Medic al on nasal daily. Branch spray azithromyci 2016- Yes [id number] 500mg Take 1 Univers n 500 mg 8-23 tablet by ity of tablet 00:00: mouth [place] 00 daily. Medical Branch fluticasone 2016- Yes [id number] 2{spray Use 2 Univers (FLONASE) 8-23 } Sprays in ity o f 50 00:00: each [place] mcg/actuati 00 nostril Medic al on nasal daily. Branch spray azithromyci 2017- Yes [id number] 500mg Take 1 Univers n 500 mg 8-23 tablet by ity of tablet 00:00: mouth [place] 00 daily. Medical Branch fluticasone 2017-0 Yes [id number] 2{spray Use 2 Univers (FLONASE) 8-23 } Sprays in ity o f 50 00:00: each [place] mcg/actuati 00 nostril Medic al on nasal daily. Branch spray azithromyci 2017- 2020- No [id number] 500mg Take 1 Univers n 500 mg [...] hours as needed. rOPINIRole 2015-05 Yes 1mg Q.[id number] Take [address] [facility] (REQUIP) 1 05-27 [id number] by [facility] 17:24: 3D (three) Medic al 27 times Center daily Pt stated that she is unsure of the dose and only takes it prn . rOPINIRole 2015-05 Yes 1mg Q.[id number] Take [address] [facility] (REQUIP) 1 05-27 [id number] by mouth 3 [facility] tablet 17:24: 3D (three) Medic al 27 times Center daily Pt stated that she is unsure of the dose and only takes it prn . rOPINIRole 2015-05 Yes 1mg Q.[id number] Take [address] [facility] (REQUIP) 1 05-27 [id number] by mouth 3 [facility] tablet 17:24: [...] acetaminoph Yes May take Un hieu en-codeine 12-12 1-2 tabs ity o f (TYLENOL 00:00: every 6 [place] #3) 300-30 00 hours for Medi baljinder mg tablet pain Branch acetaminoph Yes May take Un hieu en-codeine 12-12 1-2 tabs ity o f (TYLENOL 00:00: every 6 [place] #3) 300-30 00 hours for Medi baljinder mg tablet pain Branch acetaminoph Yes May take Un hieu en-codeine 12-12 1-2 tabs ity o f (TYLENOL 00:00: every 6 [place] #3) 300-30 00 hours for Medi baljinder mg tablet pain Branch acetaminoph Yes May take Un hieu en-codeine 12-12 1-2 tabs ity o f (TYLENOL 00:00: every 6 [place] #3) 300-30 00 hours for Medi baljinder mg tablet pain Branch acetaminoph Yes May take Un hieu en-codeine 12-12 1-2 tabs ity o f (TYLENOL 00:00: every 6 [place] #3) 300-30 00 hours for Medi baljinder mg tablet pain Branch acetaminoph Yes May take Un hieu en-codeine 12-12 1-2 tabs ity o f (TYLENOL 00:00: every 6 [place] #3) 300-30 00 hours for Medi baljinder mg tablet pain Branch acetaminoph Yes May take Un hieu en-codeine 12-12 1-2 tabs ity o f (TYLENOL 00:00: every 6 [place] #3) 300-30 00 hours for Medi baljinder mg tablet pain Branch acetaminoph Yes May take Un hieu en-codeine 12-12 1-2 tabs ity o f (TYLENOL 00:00: every 6 [place] #3) 300-30 00 hours for Medi baljinder mg tablet pain Branch acetaminoph Yes May take Un hieu en-codeine 12-12 1-2 tabs ity o f (TYLENOL 00:00: every 6 [place] #3) 300-30 00 hours for Medi baljinder mg tablet pain Branch acetaminoph Yes May take Un hieu en-codeine 7-27 1-2 tabs ity o f (TYLENOL 00:00: every 6 [place] #3) 300-30 00 hours for Medi baljinder mg tablet pain Branch Immunizations Ordered Filled Immunization Date Status Comments [facility] e Immunization Name Name Influenza Virus 2019-03-26 Completed Universit y of Vaccine [place] .5 mL 00:00:00 [place] [facility] IM 6+ MO Branch Influenza Virus 2019-03-26 Completed Universit y of Vaccine [place] .5 mL 00:00:00 [place] [facility] IM 6+ MO Branch Influenza Virus 2019-03-26 Completed Universit y of Vaccine [place] .5 mL 00:00:00 [place] [facility] IM 6+ MO Branch Influenza Virus 2019-03-26 Completed Universit y of Vaccine [place] .5 mL 00:00:00 [place] [facility] IM 6+ MO Branch Influenza Virus 2019-03-26 Completed Universit y of Vaccine [place] .5 mL 00:00:00 [place] [facility] IM 6+ MO Branch Influenza Virus 2019-03-26 Completed Universit y of Vaccine [place] .5 mL 00:00:00 [facility] 6+ MO Branch Zoster Vaccine 2018-11-10 Completed University of Recombinant 00:00:00 [facility] Zoster Vaccine 2018-11-10 Completed University of Recombinant 00:00:00 [facility] Zoster Vaccine 2018-11-10 Completed University of Recombinant 00:00:00 [facility] Zoster Vaccine 2018-11-10 Completed University of Recombinant 00:00:00 [facility] Zoster Vaccine 2018-11-10 Completed University of Recombinant 00:00:00 [facility] Zoster Vaccine 2018-11-10 Completed University of Recombinant 00:00:00 [facility] Zoster Vaccine 2018-08-07 Completed University of Recombinant 00:00:00 [facility] Zoster Vaccine 2018-08-07 Completed University of Recombinant 00:00:00 [facility] Zoster Vaccine 2018-08-07 Completed University of Recombinant 00:00:00 [facility] Zoster Vaccine 2018-08-07 Completed University of Recombinant 00:00:00 [facility] Zoster Vaccine 2018-08-07 Completed University of Recombinant 00:00:00 [facility] Zoster Vaccine 2018-08-07 Completed University of Recombinant 00:00:00 [facility] Td 2008-10-08 Completed University of 00:00:00 [facility] Td 2008-10-08 Completed University of 00:00:00 [facility] Td 2008-10-08 Completed University of 00:00:00 [place] [facility] Td 2008-10-08 Completed University of 00:00:00 [place] [facility] Td 2008-10-08 Completed University of 00:00:00 [place] [facility] Td 2008-10-08 Completed University of 00:00:00 [facility] TD, NOS 2008-10-08 Completed University of 00:00:00 [place] [facility] Td 2008-10-08 Completed University of 00:00:00 [place] [facility] Td 2008-10-08 Completed University of 00:00:00 [place] [facility] Td 2008-10-08 Completed University of 00:00:00 [facility] Vital Signs Vital Name Observation Time Observation Value Comments Source HEIGHT 2020-09-21 07:49:00 160 cm WEIGHT 2020-09-21 07:49:00 77.7 kg HEIGHT 2020-09-13 09:43:00 160 cm WEIGHT 2020-09-13 09:43:00 74.844 kg Systolic blood 2022-11-03 03:00:00 146 mm[Hg] Univer sity of pressure [facility] Diastolic blood 2022-11-03 03:00:00 91 mm[Hg] Unive rsity of [facility] Heart rate 2022-11-03 03:00:00 76 /min [facility] Respiratory rate 2022-11-03 03:00:00 18 /min [facility] Oxygen saturation in 2022-11-03 03:00:00 95 /min [facility] Arterial blood by [facility] Pulse oximetry Branch Body temperature 2022-11-03 00:22:00 37.5 Sharlene [facility] height 2022-11-03 00:22:00 160 cm [facility] Body weight 2022-11-03 00:22:00 74.844 kg [facility] BMI 2022-11-03 00:22:00 29.23 kg/m2 [facility] Systolic blood 2021-10-19 06:00:00 134 mm[Hg] Univer sity of pressure [facility] Diastolic blood 2021-10-19 06:00:00 78 mm[Hg] Unive rsity of pressure [facility] Heart rate 2021-10-19 06:00:00 67 /min Universi ty of [place] [facility] Respiratory rate 2021-10-19 06:00:00 14 /min Univ ersity of [place] [facility] Oxygen saturation in 2021-10-19 06:00:00 95 /min University of Arterial blood by [facility] Pulse oximetry Branch Body temperature 2021-10-19 01:00:00 37.5 Sharlene Univ ersity of [place] [facility] Body height 2021-10-19 01:00:00 157.5 cm [facility]i [facility] [place] [facility] Body weight 2021-10-19 01:00:00 74.844 kg [facility]i [facility] [place] [facility] BMI 2021-10-19 01:00:00 30.18 kg/m2 [facility] [place] [facility] HEIGHT 2020-09-21 07:49:00 160 cm WEIGHT 2020-09-21 07:49:00 77.7 kg HEIGHT 2020-09-13 09:43:00 160 cm WEIGHT 2020-09-13 09:43:00 74.844 kg Body height 2020-07-24 20:16:00 160 cm [facility]i [facility] [place] [facility] Body weight 2020-07-24 20:16:00 72.576 kg [facility] [place] [facility] BMI 2020-07-24 20:16:00 28.34 kg/m2 [facility] [place] [facility] Body height 2020-07-24 20:16:00 160 cm [facility] [place] [facility] Body weight 2020-07-24 20:16:00 72.576 kg [facility]i [facility] [place] [facility] BMI 2020-07-24 20:16:00 28.34 kg/m2 [facility] [place] [facility] Respiratory rate 2020-01-17 18:32:00 16 /min Univ ersity of [place] [facility] Oxygen saturation in 2020-01-17 18:32:00 96 /min University of Arterial blood by [facility] Pulse oximetry Branch Systolic blood 2020-01-17 16:39:00 124 mm[Hg] Univer sity of pressure [place] [facility] [place] Diastolic blood 2020-01-17 16:39:00 77 mm[Hg] Unive rsity of pressure [facility] Heart rate 2020-01-17 16:39:00 75 /min [facility]i ty [facility] [place] [facility] Body temperature 2020-01-17 16:39:00 35.5 Sharlene Univ ersity of [facility] Body weight 2020-01-16 15:55:00 72.576 kg Universi ty of [place] [facility] [place] BMI 2020-01-16 15:55:00 28.34 kg/m2 Universi ty of [facility] Systolic blood 2020-01-14 11:00:00 134 mm[Hg] Univer sity of pressure [facility] Diastolic blood 2020-01-14 11:00:00 84 mm[Hg] Unive rsity of [facility] Heart rate 2020-01-14 11:00:00 70 /min Universi ty of [facility] Respiratory rate 2020-01-14 11:00:00 13 /min [facility] Oxygen saturation in 2020-01-14 11:00:00 95 /min [facility] Arterial blood by [facility] Pulse oximetry Branch Body temperature 2020-01-14 09:54:00 37.44 Sharlene [facility] ersity of [facility] Body weight 2020-01-14 09:54:00 72.576 kg Universi ty of [facility] BMI 2020-01-14 09:54:00 28.34 kg/m2 Universi ty of [facility] Systolic blood 2019-02-04 13:26:00 130 mm[Hg] Univer sity of [facility] Diastolic blood 2019-02-04 13:26:00 80 mm[Hg] Unive rsity of pressure [facility] Heart rate 2019-02-04 13:26:00 75 /min Universi ty of [facility] Body temperature 2019-02-04 13:26:00 36.5 Sharlene Univ ersity of [facility] Respiratory rate 2019-02-04 13:26:00 18 /min Univ ersity of [facility] Body height 2019-02-04 13:26:00 160 cm Universi ty of [facility] Body weight 2019-02-04 13:26:00 77.111 kg Universi ty of [facility] BMI 2019-02-04 13:26:00 30.11 kg/m2 Universi ty of [facility] Systolic blood 2020-09-21 14:30:00 104 mm[Hg] [facility] Diastolic blood 2020-09-21 14:30:00 64 mm[Hg] [facility] Heart rate 2020-09-21 14:30:00 65 /min [facility] Body temperature 2020-09-21 14:30:00 36.28 Sharlene [facility] Respiratory rate 2020-09-21 14:30:00 15 /min [facility] Oxygen saturation in 2020-09-21 14:30:00 95 /min [facility] Arterial blood by Medical Ce nter Pulse oximetry Body height 2020-09-21 07:49:00 160 cm [facility] Body weight 2020-09-21 07:49:00 77.7 kg [facility] BMI 2020-09-21 07:49:00 30.34 kg/m2 [facility] Procedures Procedure Date / Time Performing Clinician Source Performed CT ABDOMEN PELVIS WO 2022-11-03 03:38:20 Mahogany Mary [facility] CT STROKE ANGIOGRAM HEAD 2022-11-03 01:55:59 Mahogany Mary [facility] [place] CT STROKE ANGIOGRAM NECK 2022-11-03 01:55:59 Mahogany Mary [facility] [place] XR CHEST 2 VW 2022-11-03 01:55:22 Mahogany Mary [facility] CBC WITH DIFF 2022-11-03 01:21:00 Mahogany Mary [facility] PROTHROMBIN TIME / INR 2022-11-03 01:21:00 Mahogany Mary [facility] ACTIVATED PARTIAL 2022-11-03 01:21:00 Mahogany Mary [facility] THRMPLAS AMANDEEP [facility] LIPASE 2022-11-03 00:49:00 Mahogany Mary [facility] TROPONIN I 2022-11-03 00:49:00 Mahogany Mary [facility] COMP. METABOLIC PANEL 2022-11-03 00:49:00 Mahogany Mary [facility] ([id number]) [facility] N-TERMINAL PRO-BNP 2022-11-03 00:49:00 Mahogany Mary [facility] CONSENT/REFUSAL FOR 2022-11-03 00:14:12 [facility]igned, [facility] Name [facility] NOTICE OF PRIVACY 2022-11-03 00:13:34 Doctor Unassigned, No [facility] 2021-10-19 03:58:00 Sergey Moon [facility] CT ABDOMEN PELVIS W 2021-10-19 02:07:46 Sergey Moon [facility] CONTRAST Medical Branch LIPASE 2021-10-19 01:17:00 Sergey Moon [facility] TROPONIN I 2021-10-19 01:17:00 Sergey Moon [facility] COMP. METABOLIC PANEL 2021-10-19 01:17:00 Sergey Moon [facility] ([id number]) [facility] CBC WITH DIFF 2021-10-19 01:17:00 Sergey Moon [facility] PROTHROMBIN TIME / INR 2021-10-19 01:17:00 Sergey Moon [facility] ACTIVATED PARTIAL 2021-10-19 01:17:00 Sergey Moon [facility] THRMPLAS AMANDEEP [facility] N-TERMINAL PRO-BNP 2021-10-19 01:17:00 Sergey Moon [facility] NOTICE OF PRIVACY 2021-10-19 00:33:39 Doctor Unassigned, No [facility] CONSENT/REFUSAL FOR 2021-10-19 00:33:16 Doctor Unassigned, No [facility] TREATMENT [facility] ARTHROSCOPY,SHOULDER 2020-09-21 09:36:00 Bernardino Ed [facility] ROTATOR CUFF REPAIR W/ [facility] GRAFT ARTHROSCOPY,SHOULDER 2020-09-21 09:36:00 [facility] DECOMPRESSION [facility] SUBACROMIAL SPACE W/ACROMIOPLASTY ARTHROSCOPY,BICEPS 2020-09-21 09:36:00 Bernardino Ed [facility] TENODESIS [facility] ANESTHESIA PERIPHERAL 2020-09-21 09:22:17 Robbin Reynoso [facility] PNEUMOCOCCAL ANTIGEN 2020-01-17 02:07:00 Gabrielle Ocasio [facility] C-REACTIVE PROTEIN 2020-01-16 21:39:00 [facility] D, 25-[place] 2020-01-16 21:39:00 Amarjit [facility] PROCALCITONIN 2020-01-16 21:39:00 Amarjit [facility] o f [facility] XR CHEST 1 VW COVID 2020-01-16 17:14:45 Marlen Pond [facility] BLOOD CULTURE SCREEN 2020-01-16 16:28:00 Marlen Pond [facility] ACUTE CARE VENOUS BLOOD 2020-01-16 16:28:00 Marlen Pond [facility] LACTATE DEHYDROGENASE 2020-01-16 16:19:00 Marlen Pond [facility] FERRITIN SERUM 2020-01-16 16:19:00 Marlen Pond [facility] [place] TROPONIN I 2020-01-16 16:19:00 Marlen Pond [facility] [place] HEPATIC FUNCTION PANEL 2020-01-16 16:19:00 Marlen Pond [facility] ([id number]) (ALB,T.PRO,BILI [facility] T,BU/BC,ALT,AST,ALK PHOS) BASIC METABOLIC PANEL 2020-01-16 16:19:00 Marlen Pond [facility] (NA, K, CL, CO2, Medical Branch GLUCOSE, BUN, CREATININE, CA) CBC WITH DIFF 2020-01-16 16:19:00 Marlen Pond [facility] [place] PROTHROMBIN TIME / INR 2020-01-16 16:19:00 Marlen Pond [facility] D-DIMER 2020-01-16 16:19:00 Marlen Pond [facility] [place] ACTIVATED PARTIAL 2020-01-16 16:19:00 Marlen Pond [facility] FIB[facility] 2020-01-16 16:19:00 Marlen Pond [facility] [place] URINALYSIS 2020-01-16 16:19:00 Marlen Pond [facility] [place] URINE CULTURE 2020-01-16 16:19:00 Marlen Pond [facility] [place] N-TERMINAL PRO-BNP 2020-01-16 16:19:00 Marlen Pond [facility] COVID-19 (ID NOW RAPID 2020-01-16 16:19:00 Marlen Pond [facility] TESTING) Medical Branch LACTIC ACID WHOLE BLOOD 2020-01-16 16:18:00 Marlen Pond [facility] 2020-01-16 16:16:29 Marlen Pond [facility] [place] NOTICE OF PRIVACY 2020-01-16 15:44:20 Doctor Unassigned, No [facility] Name [facility] CONSENT/REFUSAL FOR 2020-01-16 15:44:06 Doctor Unassigned, [facility] DIAGNOSIS AND TREATMENT Name Medical Branch CT ABDOMEN PELVIS W 2020-01-14 11:03:22 Davis Manzo [facility] CONTRAST [facility] LIPASE 2020-01-14 10:04:00 Davis Manzo [facility] COMP. METABOLIC PANEL 2020-01-14 10:04:00 Davis Manzo [facility] ([id number]) [facility] CBC WITH DIFF 2020-01-14 10:04:00 Davis Manzo [facility] URINALYSIS 2020-01-14 10:04:00 Davis Manzo [facility] NOTICE OF PRIVACY 2020-01-14 09:39:58 Doctor Unassigned, No [facility] PRACTICES Name Medical Branch CONSENT/REFUSAL FOR 2020-01-14 09:38:59 Doctor Unassigned, No [facility] DIAGNOSIS AND TREATMENT Name [facility] Plan of Care Planned Activity Planned Date Details Comments Source Future Scheduled 2023-01-17 Influenza Vaccine (#1) [facility] 00:[facility]:00 [code = Influenza Vaccine [facility] (#1)] Future Scheduled 2022-05-[address] [facility] Test 00:00:00 (12+) [code = DEPRESSION Med ical Center SCREENING (12+)] Future Scheduled 2021-09-[address] [facility] Test 00:00:00 Counseling [facility] Screening [facility] (12+) [code = Tobacco Cessation Counseling and Screening (12+)] Future Scheduled 2021-01-17 INFLUENZA VACCINE (#1) [facility] 00:00:00 [code = INFLUENZA VACCINE Me dical Center (#1)] Future Scheduled 2021-01-17 INFLUENZA VACCINE (#1) [facility] 00:00:00 [code = INFLUENZA VACCINE Me dical Center (#1)] Future Scheduled 2020-05-[address] [facility] Test 00:00:00 (12+) [code = DEPRESSION Med ical Center SCREENING (12+)] Future Scheduled 2020-05-[address] [facility] Test 00:00:00 (12+) [code = DEPRESSION Med ical Center SCREENING (12+)] Future Scheduled 2018-10-08 DTAP/TDAP/TD VACCINES ([address] [facility] Test 00:00:00 - Td or Tdap) [code = Medica l Center DTAP/TDAP/TD VACCINES (2 - Td or Tdap)] Future Scheduled 2018-10-08 DTAP/TDAP/TD VACCINES ([address] [facility] Test 00:00:00 - Td or Tdap) [code = Medica l Center DTAP/TDAP/TD VACCINES (2 - Td or Tdap)] Future Scheduled 2018-10-08 DTAP/TDAP/TD VACCINES ([address] [facility] Test 00:00:00 - Td or Tdap) [code = Medica l Center DTAP/TDAP/TD VACCINES (2 - Td or Tdap)] Future Scheduled 2011-09-11 SHINGLES VACCINES ([address] [facility] Test 00:00:00 2) [facility])] Future Scheduled 2011-09-11 SHINGLES VACCINES ([address] [facility] 00:00:00 2) [facility] Future Scheduled 2011-09-11 SHINGLES VACCINES ([address] [facility] 00:00:00 2) [facility] Future Scheduled 2006 Lipid panel (procedure) [facility] 00:00:00 [code = 54468973] Medical Ce nter Future Scheduled 2006 Lipid panel (procedure) [facility] 00:00:00 [code = 95729224] Medical Ce nter Future Scheduled 2006 Lipid panel (procedure) [facility] 00:00:00 [code = 17577923] Medical Ce nter Future Scheduled 1982 Screening for malignant [facility] 00:00:00 neoplasm of cervix Medical C enter (procedure) [code = 364453276] Future Scheduled 1982 Screening for malignant [facility] 00:00:00 neoplasm of cervix Medical C enter (procedure) [code = 257576260] Future Scheduled 1982 Screening for malignant [facility] 00:00:00 neoplasm of cervix Medical C enter (procedure) [code = 456647880] Future Scheduled 1979-09-11 HEPATITIS C [facility]CRE[facility]ING [facility] [code = HEPATITIS C Medical Center SCREENING] Future Scheduled 1979-09-11 HEPATITIS C [facility]ING [facility]00 [code = HEPATITIS C Medical Center SCREENING] Future Scheduled 1979-09-11 HEPATITIS C [facility]ING [facility] 00:[facility]00 [code = HEPATITIS C Medical Center SCREENING] Future Scheduled [address] Human [address] [facility] virus screening Medical Cent er (procedure) [code = 684840046] Future Scheduled 1973 COVID-19 VACCINE (1) [facility] 00:00:00 [code = COVID-19 VACCINE Med ical Center (1)] Future Scheduled 1973 COVID-19 VACCINE (1) [facility] 00:00:00 [code = COVID-19 VACCINE Med ical Center (1)] Future Scheduled 1962-03-12 COVID-19 VACCINE (#1) [facility] 00:[facility]00 [code = COVID-19 VACCINE Med ical Center (#1)] Future Scheduled 1961 Screening for malignant [facility] 00:00:00 neoplasm of breast Medical C enter (procedure) [code = 638394440] Future Scheduled 1961 Screening for malignant [facility] 00:00:00 neoplasm of colon Medical Ce nter (procedure) [code = 062735563] Future Scheduled 1961 Screening for malignant [facility] 00:00:00 neoplasm of breast Medical C enter (procedure) [code = 595757776] Future Scheduled 1961 Screening for malignant [facility] 00:00:00 neoplasm of colon Medical Ce nter (procedure) [code = 287378133] Future Scheduled 1961 Screening for malignant [facility] 00:00:00 neoplasm of breast Medical C enter (procedure) [code = 920934640] Future Scheduled 1961 CT Colonography (combo) [facility] 00:00:00 [code = CT Colonography [facility] (combo)] Future Scheduled 1961 Screening for malignant [facility] 00:00:00 neoplasm of colon Medical Ce nter (procedure) [code = 541964908] Future Scheduled 1961 Screening for malignant [facility] 00:00:00 neoplasm of colon Medical Ce nter (procedure) [code = 847468080] Future Scheduled 1961 Screening for malignant [facility] 00:00:00 neoplasm of colon Medical Ce nter (procedure) [code = 455794838] Future Scheduled 1961 Screening for malignant [facility] 00:00:00 neoplasm of colon Medical Ce nter (procedure) [code = 240064278] Future Scheduled 1961 Sigmoidoscopy [code = [facility] S[facility]oidoscopy] Medical Cente r Encounters Start End Encounter Admission Attending Care Care Encounter Source Date/Time Date/Time Type Type Clinicians Facility Department ID 2021-03-16 Emergency [facility] [id number] Univers 14:51:01 [facility] 2021-03-16 Emergency [facility] [id number] Univers 14:37:31 [facility] 2021-02-24 Outpatient BERNARDINO, MOUNA Surgery [id number] SLE 15:07:40 ED 2022-11-02 2022-11-02 Emergency [facility] ERT [id number] Univers 19:19:00 23:42:00 MAHOGANY ity [facility] 2022-11-02 2022-11-02 Emergency [facility] [id number] Univers 19:19:00 23:42:00 , Mahogany COBB 350.1.13.10 i ty of [place] 4.2.7.2.686 [facility] [id number] [address] 2021-10-18 2021-10-19 [facility] [id number] Univers 19:51:00 01:09:00 SERGEY kanuaustyn [facility] 2021-10-18 2021-10-19 Emergency [facility] [id number] Univers 19:51:00 01:09:00 Sergey COBB 350.1.13.10 i ty of [place] 4.2.7.2.686 [facility] [id number] [address] 2020-09-24 2020-09-24 [facility] [id number] [facility] 2020-09-23 2020-09-23 [facility] [id number] [facility] 00[facility]00 [facility] 2020-09-22 2020-09-22 [facility] [id number] [facility] 00:[facility]00 [facility] 2020-09-21 2020-09-21 [facility] [id number] 06:02:00 14:50:00 Encounter [facility] 2020-09-21 2020-09-21 Surgery [facility] [id number] 11:00:00 14:30:00 [facility] 2020-09-21 2020-09-[address] [facility] [id number] [facility] 09:51:00 13:14:[address] [facility] 2020-09-21 2020-09-[address] [facility] [id number] [facility]00 [facility] 2020-09-19 2020-09-19 Orders Bernardino, [facility] [id number] 00:00:00 00:00:00 Only Ed [facility] 2020-09-13 2020-09-13 [facility] [id number] 09:00:00 23:59:00 Encounter [facility] 2020-09-13 2020-09-13 Outpatient SLE SLE [id number] [facility] 00:00:00 00:00:00 2020-07-24 2020-07-24 [facility] [id number] 14:13:03 23:59:00 Encounter Emelyn L [facility] 350.1.13.10 Surgical 4.2.7.2.686 Specialti [id number] es [address] [place] 2020-07-24 2020-07-24 [facility] [id number] [facility] 14:13:03 23:59:00 Encounter Emelyn Cee [facility] 350.1.13.10 ity of Surgical 4.2.7.2.686 Ar as Specialti [id number] Me dical es [address] [place] 2020-07-24 2020-07-24 Office [facility] [id number] 14:11:03 14:52:35 Visit Emelyn L [facility] 350.1.13.10 Surgical 4.2.7.2.686 Specialti [id number] es [address] [place] 2020-07-24 2020-07-24 Office [facility] [id number] Univers 14:11:03 14:52:35 Visit Emelyn [facility] 350.1.13.10 it y of Surgical 4.2.7.2.686 Ar as Specialti [id number] Me dical es [address] [place] 2020-07-242020-07-24 Outpatient R FARSHAD, [facility] [id number] Univers 14:15:00 14:15:00 EMELYNDEVEN robles [facility] 2020-02-07 2020-02-07 [facility]patient [facility] [id number] Univers 08:00:00 08:00:00 BRIT kanuaustyn [facility] 2020-01-16 2020-01-17 Emergency Marlen Pond [facility] 1.2.840 .114 [id number] Univers 10:51:00 16:50:00 Vincenzo Vivar 350.1.13.10 ity [place] [id number] [address] 2020-01-14 2020-01-14 [facility] [id number] Univers 04:47:00 06:47:00 Davis Cobb 350.1.13.10 i ty [place] [id number] [address] 2019-10-07 2019-10-07 [facility] [id number] Univers 00:00:00 00:00:00 Brit Cobb 350.1.13.10 i [place] [id number] [place] dic[address] 2019-02-04 2019-02-04 Office Farzad [facility] [id number] Univers 08:19:51 08:42:41 Visit Brit Cobb 350.1.13.10 i ty [place] [id number] [facility] 134 [facility] Results Test Description Test Time Test Comments Results Result Comments Source ACTIVATED [employer]IAL ADALGISA BERNSTEIN 2022-11-03 01:53:53 Test Item Value Reference Range Interpretation Comme nts APTT Patient (test code = 31 See_Comment [ Automated message] The 3173-2) system which ge nerated this result tra nsmitted reference range : 23 - 38 Seconds. The re ference range was not u sed to interpret this result as normal/abnormal . CHRIST (test code = CHRIST) The [facility] patient population mean normal value for aPTT is 30 seconds. Lab Interpretation (test Normal code = 25245-9) [facility] / [id number] 01:51:52 Test Item Value Reference Range Interpretation Comments PROTIME PATIENT (test 13.1 See_Comment [Auto mated message] code = 5964-2) The system wh ich generated this result transmitted ref erence range: 12.0 - 1 4.7 Seconds. The re ference range was not u sed to interpret this result as normal/abnor mal. INR (test code = 6301-6) 1.0 Nor mal INR <1.1; Warfarin Therap eutic range 2.0 to 3. 0 or 2.5 to 3.5, dep ending upon the indica tions. Lab Interpretation (test Normal code = 19025-9) [facility] TexasCB WITH [id number] 01:44:35 Test Item Value Reference Range Interpretation Comments WBC (test code = 7.12 See_Comment [Automated 6690-2) message] The sy stem which generated this result transmitted reference range : 4.30 - 11.10 10*3/?L. The reference range was not used to interpret this result as normal/abnormal . RBC (test code = 4.21 See_Comment [Automated 419-8) message] The sy stem which generated this result transmitted reference range : 3.93 - 5.25 10*6/?L. The reference range was not used to interpret this result as normal/abnormal . HGB (test code = 11.5 g/dL 11.6-15.0 L 718-7) HCT (test code = 34.6 % 35.7-45.2 L 4544-3) MCV (test code = 82.2 fL 80.6-95.5 787-2) MCH (test code = 27.3 pg 25.9-32.8 785-6) MCHC (test code = 33.2 g/dL 31.6-35.1 786-4) RDW-SD (test code = 39.1 fL 39.0-49.9 17211-4) RDW-CV (test code = 13.2 % 12.0-15.5 788-0) PLT (test code = 212 See_Comment [Automated 777-3) message] The sy stem which generated this result transmitted reference range : 166 - 358 10*3/ ?L. The reference r camryn was not used to interpret this result as normal/abnormal . MPV (test code = 10.7 fL 9.5-12.9 24858-4) NRBC/100 WBC (test 0.0 See_Comment [Automat ed code = 7894135526) message] The system which generated this result transmitted reference range : 0.0 - 10.0 /100 WBCs. The refer ence range was not u sed to interpret th is result as normal/abnormal . NRBC x10^3 (test code See_Comment [Auto mated = 0140972444) message] The s ystem which generated this result transmitted reference range : 10*3/?L. The reference range was not used to interpret this result as normal/abnormal . GRAN MAT (NEUT) % 52.3 % (test code = 770-8) IMM GRAN % (test code 0.10 % = 3745657226) LYMPH % (test code = 32.3 % 736-9) MONO % (test code = 11.1 % 5905-5) EOS % (test code = 3.1 % 713-8) BASO % (test code = 1.1 % 706-2) GRAN MAT x10^3(ANC) 3.72 10*3/uL 1.88-7.09 (test code = 9064722345) IMM GRAN x10^3 (test 0.00-0.06 code = 3856233184) LYMPH x10^3 (test code 2.30 10*3/uL 1.32-3.29 = 731-0) MONO x10^3 (test code 0.79 10*3/uL 0.33-0.92 = 742-7) EOS x10^3 (test code = 0.22 10*3/uL 0.03-0.39 711-2) BASO x10^3 (test code 0.08 10*3/uL 0.01-0.07 H = 704-7) Lab Interpretation Abnormal (test code = 25329-7) [facility] [id number] 01:31:31 Test Item Value Reference Range Interpretation Comments TROPONIN I (test code = 0.015 ng/mL <=0.034 0423316505) CHRIST (test code = CHRIST) Reference (Normal) Range (defined by the 99th percentile reference limit): <= 0.034 ng/mL Note: Cardiac troponin begins to rise 3-4 hours after the onset of ischemia. Repeat in 4-6 hours if the sample was drawn within 3-4 hours of the onset of the symptom and found normal. Diagnosis of myocardial injury is made with acute changes in cTn concentrations with at least one serial sample above the 99th percentile upper reference limit (URL), taken together with the patient's clinical presentation. Biotin has been reported to cause a negative bias, interpret results relative to patient's use of biotin. Lab Interpretation Normal (test code = 22109-3) [facility]MINAL [id number] 01:28:30 Test Item Value Reference Range Interpretation Comments NT-proBNP (test code = 44 pg/mL <=125 3945126789) CHRIST (test code = CHRIST) Biotin has been reported to cause a negative bias, interpret results relative to patient's use of biotin. Lab Interpretation (test Normal code = 05938-8) [facility] TexasCOM. METABOLIC PANEL ([id number])2022-11-03 01:20:13 Test Item Value Reference Range Interpretation Comments NA (test code = 140 mmol/L 135-145 5949517694) K (test code = 4.4 mmol/L 3.5-5.0 2309004557) CL (test code = 108 mmol/L 98-108 9406955324) CO2 TOTAL (test code = 26 mmol/L 23-31 0711571904) AGAP (test code = 6 2-16 5853520740) BUN (test code = 11 mg/dL 7-23 2489932241) GLUCOSE (test code = 95 mg/dL 70-110 1544465646) CREATININE (test code = 0.84 mg/dL 0.50-1.04 4553787487) TOTAL BILI (test code = 1.2 mg/dL 0.1-1.1 H 1958789977) CALCIUM (test code = 8.7 mg/dL 8.6-10.6 6360735602) T PROTEIN (test code = 7.2 g/dL 6.3-8.2 3725342840) ALBUMIN (test code = 4.1 g/dL 3.5-5.0 9551475068) ALK PHOS (test code = 94 U/L 34-122 0853195473) ALTv (test code = 17 U/L 5-35 1742-6) AST(SGOT) (test code = 35 U/L 13-40 9510682591) eGFR (test code = 68.9 mL/min/1.73m2 9578012064) CHRIST (test code = CHRIST) Association of [...] tests). Lab Interpretation Abnormal (test code = 27001-3) [facility] TexasLIPASE2023-06-18 01:19:53 Test Item Value Reference Range Interpretation Comments LIPASE (test code = 5516972483) 218 U/L 0-220 Lab Interpretation (test code = Normal 01888-7) [facility]. METABOLIC PANEL ([id number])2021-10-19 02:04:33 Test Item Value Reference Range Interpretation Comments NA (test code = 139 mmol/L 135-145 0820708842) K (test code = 3.8 mmol/L 3.5-5.0 6051308974) CL (test code = 103 mmol/L 98-108 1550285086) CO2 TOTAL (test code = 24 mmol/L 23-31 5815189464) AGAP (test code = 2-16 2321473347) BUN (test code = 9 mg/dL 7-23 4494144337) GLUCOSE (test code = 111 mg/dL 70-110 H 1833057541) CREATININE (test code = 0.80 mg/dL 0.50-1.04 4842031753) TOTAL BILI (test code = 1.0 mg/dL 0.1-1.6 4649531563) CALCIUM (test code = 9.0 mg/dL 8.6-10.6 8847418059) T PROTEIN (test code = 7.1 g/dL 6.3-8.2 0415718426) ALBUMIN (test code = 4.3 g/dL 3.5-5.0 1346664664) ALK PHOS (test code = 97 U/L 34-122 5782350061) ALTv (test code = 19 U/L 5-35 1742-6) AST(SGOT) (test code = 52 U/L 13-40 H 9363666829) eGFR (test code = mL/min/1.73m2 5627496900) CHRIST (test code = CHRIST) Association of [...] tests). Lab Interpretation Abnormal (test code = 44729-4) [facility] TexasTROPONIN [id number] 01:49:33 Test Item Value Reference Interpretation Comments Range TROPONIN I (test <0.012 See_Comment [Automated code = 6044486036) message] The system which generated this result transmitted reference range : <=0.034 ng/mL. The reference range was not used to interpret this result as normal/abnormal . CHRIST (test code = Reference (Normal) CHRIST) Range (defined by the 99th percentile reference limit): <= 0.034 ng/mL Note: Cardiac troponin begins to rise 3-4 hours after the onset of ischemia. Repeat in 4-6 hours if the sample was drawn within 3-4 hours of the onset of the symptom and found normal. Diagnosis of myocardial injury is made with acute changes in cTn concentrations with at least one serial sample above the 99th percentile upper reference limit (URL), taken together with the patient's clinical presentation. Biotin has been reported to cause a negative bias, interpret results relative to patient's use of biotin. Lab Interpretation Normal (test code = 98782-3) [facility] TexasN-TERMINAL [id number] 01:46:12 Test Item Value Reference Range Interpretation Comments NT-proBNP (test code 203 pg/mL See_Comment H [Autom ated = 5274961096) message] The system which generated this result transmitted reference range : <=125. The reference range was not used to interpret this result as normal/abnormal . CHRIST (test code = CHRIST) Biotin has been reported to cause a negative bias, interpret results relative to patient's use of biotin. Lab Interpretation Abnormal (test code = 39123-4) [facility]ACT[facility]IAL THRMPLAS [id number] 01:39:52 Test Item Value Reference Range Interpretation Comments APTT Patient (test See_Comment [Automat ed code = 3173-2) message] The system which generated this result transmitted reference range : 23 - 38 Seconds . The reference range was not used to interpr et this result as normal/abnormal . CHRIST (test code = CHRIST) The [facility] patient population mean normal value for aPTT is 30 seconds. Lab Interpretation Normal (test code = 40987-1) [facility] TexasPROTHROMBIN TIME / [id number] 01:37:31 Test Item Value Reference Range Interpretation Comments PROTIME PATIENT (test See_Comment [Auto mated message] code = 5964-2) The system [employer] generated this result transmitted ref erence range: 12.0 - 1 4.7 Seconds. The re ference range was not u sed to interpret this result as normal/abnor mal. INR (test code = 6301-6) Nor mal INR <1.1; Warfarin Therap eutic range 2.0 to 3. 0 or 2.5 to 3.5, dep ending upon the indica tions. Lab Interpretation (test Normal code = 58784-5) [facility] TexasLIPASE2022-06-03 01:36:10 Test Item Value Reference Range Interpretation Comments LIPASE (test code = 7287867900) 84 U/L 0-220 Lab Interpretation (test code = Normal 98990-7) [facility] TexasCBC WITH [id number] 01:26:31 Test Item Value Reference Range Interpretation Comments WBC (test code = See_Comment [Automated message] 6690-2) The system [employer] generated this result transmitted ref erence range: 4.30 - 1 1.10 10*3/?L. The re ference range was not u sed to interpret this result as normal/abnor mal. RBC (test code = See_Comment [Automated message] 789-8) The system [employer] generated this result transmitted ref erence range: 3.93 - 5 .25 10*6/?L. The re ference range was not u sed to interpret this result as normal/abnor mal. HGB (test code = 13.7 g/dL 11.6-15.0 718-7) HCT (test code = 41.0 % 35.7-45.2 4544-3) MCV (test code = 86.1 fL 80.6-95.5 787-2) MCH (test code = 28.8 pg 25.9-32.8 785-6) MCHC (test code = 33.4 g/dL 31.6-35.1 786-4) RDW-SD (test code 41.1 fL 39.0-49.9 = 45300-1) RDW-CV (test code 13.2 % 12.0-15.5 = 788-0) PLT (test code = See_Comment [Automated message] 777-3) The system [employer] generated this result transmitted ref erence range: 166 - 35 8 10*3/?L. The re ference range was not u sed to interpret this result as normal/abnor mal. MPV (test code = 11.1 fL 9.5-12.9 13111-7) NRBC/100 WBC (test See_Comment [Automat ed message] code = 2857707594) The syste m which generated this result transmitted ref erence range: 0.0 - 10 .0 /100 WBCs. The refer ence range was not u sed to interpret this result as normal/abnor mal. NRBC x10^3 (test <0.01 See_Comment [Automated message] code = 8571006522) The syste m which generated this result transmitted ref erence range: 10*3/?L. The reference range was not used to interpr et this result as normal/abnormal . GRAN MAT (NEUT) % 65.0 % (test code = 770-8) IMM GRAN % (test 0.40 % code = 1632395892) LYMPH % (test code 23.0 % = 736-9) MONO % (test code 8.8 % = 5905-5) EOS % (test code = 2.2 % 713-8) BASO % (test code 0.6 % = 706-2) GRAN MAT 5.41 10*3/uL 1.88-7.09 x10^3(ANC) (test code = 1304672431) IMM GRAN x10^3 0.03 10*3/uL 0.00-0.06 (test code = 2791736177) LYMPH x10^3 (test 1.91 10*3/uL 1.32-3.29 code = 731-0) MONO x10^3 (test 0.73 10*3/uL 0.33-0.92 code = 742-7) EOS x10^3 (test 0.18 10*3/uL 0.03-0.39 code = 711-2) BASO x10^3 (test 0.05 10*3/uL 0.01-0.07 code = 704-7) [facility] TexasVITAMIN D, [id number] 21:48:00 Test Item Value Reference Range Interpretation Comments VIT D 25OH (test code = 28 ng/mL 25-80 99800-1) CHRIST (test code = CHRIST) Deficiency: <20 ng/mLInsufficiency : 20-24 ng/mLOptimal: 25-80 ng/mL Lab Interpretation (test Normal code = 20491-0) [facility] TexasPNEUMOCOCCAL [id number] 16:02:00 Test Item Value Reference Range Interpretation Comments S. pneumoniae antigen (test code = Negative Negative 3075538914) Lab Interpretation (test code = Normal 42960-3) [facility] TexasLEGIONELLA URINARY ANTIGEN [id number] 16:02:00 Test Item Value Reference Range Interpretation Comments Legionella Urinary Negative Negative Antigen (test code = 5035100062) CHRIST (test code = CHRIST) Negative for [...] test. Lab Interpretation (test Normal code = 28751-6) [facility] TexasC-REACTIVE [id number] 15:33:00 Test Item Value Reference Range Interpretation Comments CRP (test code = 3962666368) 1.0 mg/dL <0.8 H Lab Interpretation (test code = Abnormal 94542-7) [facility] TexasURINE [id number] 12:07:00 Test Item Value Reference Range Interpretation Comments URINE CULTURE (test No aerobic growth (< code = 630-4) 1000 CFU/mL) [facility] TexasPROCALCITONIN2020-08-31 02:15:00 Test Item Value Reference Range Interpretation Comments Procalcitonin (test 0.03 ng/mL <0.07 code = 4505355301) CHRIST (test code = CHRIST) INTERPRETATION OF [...] information please refer to:[email or web address] Lab Interpretation Normal (test code = 29523-7) [facility] TexasXR CHEST 1 VW [id number] 18:20:03 Hazy bilateral airspace and interstitial opacities are consistent withknown Covid-19 infection. Disclaimer: Generally, the findings on chest imaging in COVID-19 are notspecific, and overlap with otherinfections, including influenza, H1N1,SARS and MERS. According to the Centers for Disease Control (CDC) and recent statement ofthe [employer], viral testing remains the [...] are noted. There is no pleuraleffusion or pneumothorax. Heart/Mediastinum: The cardiomediastinal silhouette is normal. No acute osseous structure abnormality. [facility], Radiant Results Inft User - 01/16/2020 1:21 PM CDTEXAM:XR CHEST 1 VW COVIDHISTORY: 59 years-old; Female; sob covid + COMPARISON: 10/26/2016 radi ographFINDINGS:Lungs/Pleura: Hazy airspace and interstitial opacities in the [...] Disease Control (CDC) and recent statement ofthe [employer], viral testing remains the only specificmethod of diagnosis. Confirmation with the viral test is required, even ifradiologic findings are suggestive of COVID-[address]Preliminary Report Dictated by Resident: Leonila Torres MD., have reviewed this study and agree with theabove report.[facility] TexasFERRITIN [id number] 17:30:00 Test Item Value Reference Range Interpretation Comments FERRITIN (test code = 66.4 ng/mL 11-264 7770069858) CHRIST (test code = CHRIST) Biotin has been reported to cause a negative bias, interpret results relative to patient's use of biotin. Lab Interpretation (test Normal code = 88010-7) [facility] TexasUrinalysis2020-08-30 17:07:00 Test Item Value Reference Range Interpretation Comments APPEARANCE (test code = Clear Clear 2426705013) COLOR (test code = Yellow Yellow 1812647557) PH (test code = 4.8-8.0 5346175461) SP GRAVITY (test code = 1.003-1.030 8482765577) GLU U QUAL (test code = Normal Normal 8111551901) BLOOD (test code = Negative Negative 4736398666) KETONES (test code = 80 mg/dL Negative A 3903170512) PROTEIN (test code = Negative Negative 2887-8) UROBILIN (test code = Normal Normal 2624521913) BILIRUBIN (test code = Negative Negative 0323191994) NITRITE (test code = Negative Negative 2203298252) LEUK JOSE (test code = Negative Negative 4409156748) RBC/HPF (test code = See_Comment [Autom ated message] 9384196246) The system [employer] generated this result transmitted ref erence range: 0 - 3 HP F. The reference range was not used to int erpret this result as normal/abnormal . WBC/HPF (test code = See_Comment [Autom ated message] 1369534814) The system [employer] generated this result transmitted ref erence range: 0 - 5 HP F. The reference range was not used to int erpret this result as normal/abnormal . BACTERIA (test code = Few Negative A 3393348190) MUCOUS (test code = Slight Negative LPF A 8953084273) SQ EPITH (test code = HPF 9956014228) Lab Interpretation (test Abnormal code = 11460-0) [facility] [id number] 17:07:00 Test Item Value Reference Range Interpretation Comments TROPONIN I (test <0.012 See_Comment [Automated code = 5120026515) message] The system which generated this result [...] ? Lab Interpretation Normal (test code = 70917-3) [facility] [id number] 17:04:00 Test Item Value Reference Range Interpretation Comments NT-proBNP (test code 51 pg/mL See_Comment [Autom ated = 7646141022) message] The system which generated this result transmitted reference range : <=125. The reference range was not used to interpret this result as normal/abnormal . CHRIST (test code = CHRIST) Biotin has been reported to cause a negative bias, interpret results relative to patient's use of biotin. Lab Interpretation Normal (test code = 58386-2) [facility]D-[id number] 17:01:00 Test Item Value Reference Interpretation Comments Range D-DIMER (test code = See_Comment [Autom ated 7288885862) message] The system which generated this result [...] diagnosis. Lab Interpretation Normal (test code = 64205-1) [facility] (ID NOW RAPID TESTING)2020-01-16 16:59:00 Test Item Value Reference Range Interpretation Comments SARS-CoV-2 Rapid ID NOW Positive Not Detected A (test code = 67168-7) CHRIST (test code = CHRIST) ID NOW COVID-19 Assay is an isothermal nucleic acid amplification test intended for the qualitative detection of nucleic acid from SARS-CoV-2 viral RNA in nasopharyngeal (DIRECTOR CREDIT RISK) specimens. It is used under Emergency Use [...] indicated. Lab Interpretation Abnormal (test code = 66898-0) [facility] Metabolic Panel (NA, K, CL, CO2, GLUCOSE, BUN, CREATININE, CA)2020-01-16 16:55:00 Test Item Value Reference Range Interpretation Comments NA (test code = 134 mmol/L 135-145 L 5726888751) K (test code = 3.9 mmol/L 3.5-5 2946998506) CL (test code = 102 mmol/L 98-108 9194316166) CO2 TOTAL (test code = 25 mmol/L 23-31 2947456172) AGAP (test code = 2-16 2002180503) BUN (test code = 11 mg/dL 7-23 2068261867) GLUCOSE (test code = 100 mg/dL 70-110 7802907819) CREATININE (test code = 0.62 mg/dL 0.5-1.04 1478498421) CALCIUM (test code = 8.4 mg/dL 8.6-10.6 L 0850707917) eGFR Calculation mL/min/1.73m2 (Non-) (test code = 7652169268) eGFR Calculation mL/min/1.73m2 () (test code = 7635776485) CHRIST (test code = CHRIST) Association of [...] tests). Lab Interpretation Abnormal (test code = 85063-9) [facility] (ALB, T.PRO, BILI T, BU/BC, ALT, AST, ALK PHOS)2020-01-16 16:55:00 Test Item Value Reference Range Interpretation Comments TOTAL BILI (test code = 9469698750) 0.5 mg/dL 0.1-1.1 BILI UNCON (test code = 3282616323) 0.6 mg/dL 0.1-1.1 BILI CONJ (test code = 6353855459) 0.0 mg/dL 0-0.3 T PROTEIN (test code = 9634732173) 7.2 g/dL 6.3-8.2 ALBUMIN (test code = 2786949952) 4.3 g/dL 3.5-5 ALK PHOS (test code = 2898191059) 81 U/L 34-122 ALTv (test code = 1742-6) 26 U/L 5-35 AST(SGOT) (test code = 5734621471) 36 U/L 13-40 Lab Interpretation (test code = Normal 35587-3) [facility] TexasLACTATE [id number] 16:55:00 Test Item Value Reference Range Interpretation Comments LDH (test code = 1421889941) 518 U/L 300-600 Lab Interpretation (test code = Normal 82857-7) [facility] TexasFIBRINOGEN2020-08-30 16:53:00 Test Item Value Reference Range Interpretation Comments Fibrinogen (test code = 7673447967) 380 mg/dL 214-470 Lab Interpretation (test code = Normal 61012-2) [facility] TexasaPTT2020-08-30 16:53:00 Test Item Value Reference Range Interpretation Comments APTT Patient (test See_Comment [Automat ed code = 3173-2) message] The system which generated this result transmitted reference range : 23 - 38 Seconds . The reference range was not used to interpr et this result as normal/abnormal . CHRIST (test code = CHRIST) [facility] patient population mean normal value for aPTT is 30 seconds. Lab Interpretation Normal (test code = 70493-0) [facility] TexasProthrombin Time (PT) / [id number] 16:51:00 Test Item Value Reference Range Interpretation [...] tions. Lab Interpretation (test Normal code = 41733-3) [facility] TexasCBC with [id number] 16:45:00 Test Item Value Reference Range Interpretation Comments WBC (test code = See_Comment L [Automated 0290-2) message] The sy stem which generated this result transmitted reference range : 4.30 - 11.10 10*3/?L. The reference range was not used to interpret this result as normal/abnormal . RBC (test code = See_Comment [Automated 119-8) message] The sy stem which generated this [...] RDW-SD (test code = 39.1 fL 39-49.9 55389-4) RDW-CV (test code = 12.4 % 12-15.5 788-0) PLT (test code = See_Comment L [Automated 777-3) message] The sy stem which generated this result transmitted reference range : 166 - 358 10*3/ ?L. The reference r camryn was not used to interpret this result as normal/abnormal . MPV (test code = 11.2 fL 9.5-12.9 04174-3) IPF % (test code = 4.0 % 1.3-7.7 Platelet count 3181620434) measured by fluorescence method. NRBC/100 WBC (test See_Comment [Automat ed code = 5663034247) message] The system which generated this result transmitted reference range : 0.0 - 10.0 /100 WBCs. The refer ence range was not u sed to interpret th is result as normal/abnormal . NRBC x10^3 (test code <0.01 See_Comment [Auto mated = 0883776718) message] The s ystem which generated this result transmitted reference range : 10*3/?L. The reference range was not used to interpret this result as normal/abnormal . GRAN MAT (NEUT) % 67.5 % (test code = 770-8) IMM GRAN % (test code 0.60 % = 4800129484) LYMPH % (test code = 22.2 % 736-9) MONO % (test code = 9.4 % 5905-5) EOS % (test code = 0.0 % 713-8) BASO % (test code = 0.3 % 706-2) GRAN MAT x10^3(ANC) 2.37 10*3/uL 1.88-7.09 (test code = 8973860012) IMM GRAN x10^3 (test <0.03 0-0.06 code = 5194110210) LYMPH x10^3 (test code 0.78 10*3/uL 1.32-3.29 L = 731-0) MONO x10^3 (test code 0.33 10*3/uL 0.33-0.92 = 742-7) EOS x10^3 (test code = <0.03 0.03-0.39 L 711-2) BASO x10^3 (test code <0.03 0.01-0.07 = 704-7) Lab Interpretation Abnormal (test code = 34384-0) [facility] TexasLactic Acid Whole [id number] 16:34:00 Test Item Value Reference Range Interpretation Comments LACTIC ACID (test code = 1.02 mmol/L 0.3-2.6 5071414669) Lab Interpretation (test code = Normal 07062-9) [facility]AC[facility] VENOUS BLOOD [id number] 16:34:00 Test Item Value Reference Range Interpretation Comments PH (test code = 7.32-7.42 H 5514367989) PCO2 EDDIE (test code = See_Comment L [Auto mated message] 3942572289) The system [employer] generated this result transmitted ref erence range: 41 - 51 mmHg. The reference r camryn was not used to interpret this result as normal/abnor mal. PO2 EDDIE (test code = See_Comment HH [Autom ated message] 3091025566) The system [facility] generated this result transmitted ref erence range: 25 - 40 mmHg. The reference r camryn was not used to interpret this result as normal/abnor mal. HCO3 EDDIE (test code = See_Comment [Auto mated message] 5800766334) The system [facility] generated this result transmitted ref erence range: 24 - 28 mEq/L. The reference r camryn was not used to interpret this result as normal/abnor mal. AC VBE(BEAKER) (test mEq/L code = 3160856737) Lab Interpretation (test Abnormal code = 74286-4) [facility] TexasUrinalysis2020-08-28 10:25:00 Test Item Value Reference Range Interpretation Comments APPEARANCE (test code = Clear Clear 1068597771) COLOR (test code = Yellow Yellow 3096049243) PH (test code = 4.8-8.0 3990074903) SP GRAVITY (test code = 1.003-1.030 3748931010) GLU U QUAL (test code = Normal Normal 4031711117) BLOOD (test code = Negative Negative 5270022233) KETONES (test code = 5 mg/dL Negative A 0726206629) PROTEIN (test code = Negative Negative 2887-8) UROBILIN (test code = Normal Normal 2262864933) BILIRUBIN (test code = Negative Negative 9763776646) NITRITE (test code = Negative Negative 2494488297) LEUK JOSE (test code = Negative Negative 1876434582) RBC/HPF (test code = See_Comment [Autom ated message] 6287089896) The system [employer] generated this result transmitted ref erence range: 0 - 3 HP F. The reference range was not used to int erpret this result as normal/abnormal . WBC/HPF (test code = See_Comment [Autom ated message] 5765550327) The system [employer] generated this result transmitted ref erence range: 0 - 5 HP F. The reference range was not used to int erpret this result as normal/abnormal . BACTERIA (test code = Negative Negative 9114217278) MUCOUS (test code = Slight Negative LPF A 8448357900) SQ EPITH (test code = HPF 7433453303) Lab Interpretation (test Abnormal code = 53973-9) [facility] TexasComplete Metabolic [id number] 10:23:00 Test Item Value Reference Range Interpretation Comments NA (test code = 136 mmol/L 135-145 7729812014) K (test code = 4.1 mmol/L 3.5-5 9239967589) CL (test code = 104 mmol/L 98-108 6195327375) CO2 TOTAL (test code = 26 mmol/L 23-31 8792510099) AGAP (test code = 2-16 7090146819) BUN (test code = 11 mg/dL 7-23 9035391098) GLUCOSE (test code = 100 mg/dL 70-110 9325250714) CREATININE (test code 0.70 mg/dL 0.5-1.04 = 9379722659) TOTAL BILI (test code 0.6 mg/dL 0.1-1.1 = 5010110868) CALCIUM (test code = 8.6 mg/dL 8.6-10.6 3270598374) T PROTEIN (test code = 7.3 g/dL 6.3-8.2 2708599595) ALBUMIN (test code = 4.2 g/dL 3.5-5 8705000419) ALK PHOS (test code = 77 U/L 34-122 5206831066) ALTv (test code = 34 U/L 5-35 1742-6) AST(SGOT) (test code = 37 U/L 13-40 4231679372) eGFR Calculation mL/min/1.73m2 (Non-) (test code = 4521940288) eGFR Calculation mL/min/1.73m2 () (test code = 0719495090) CHRIST (test code = CHRIST) Association of [...] or urine or abnormalities in imaging tests). [facility] TexasLipase, [id number] 10:23:00 Test Item Value Reference Range Interpretation Comments LIPASE (test code = 4261893170) 242 U/L 0-220 H Lab Interpretation (test code = Abnormal 00970-3) [facility] TexasCBC with [id number] 10:12:00 Test Item Value Reference Range Interpretation [...] RDW-SD (test code = 40.4 fL 39-49.9 52711-6) RDW-CV (test code = 12.4 % 12-15.5 788-0) PLT (test code = See_Comment L [Automated 777-3) message] The sy stem which generated this result transmitted reference range : 166 - 358 10*3/ ?L. The reference r camryn was not used to interpret this result as normal/abnormal . MPV (test code = 10.9 fL 9.5-12.9 52912-5) NRBC/100 WBC (test See_Comment [Automat ed code = 7547192957) message] The system which generated this result transmitted reference range : 0.0 - 10.0 /100 WBCs. The refer ence range was not u sed to interpret th is result as normal/abnormal . NRBC x10^3 (test code <0.01 See_Comment [Auto mated = 1876598252) message] The s ystem which generated this result transmitted reference range : 10*3/?L. The reference range was not used to interpret this result as normal/abnormal . GRAN MAT (NEUT) % 56.1 % (test code = 770-8) IMM GRAN % (test code 0.50 % = 5885100939) LYMPH % (test code = 29.4 % 736-9) MONO % (test code = 13.1 % 5905-5) EOS % (test code = 0.7 % 713-8) BASO % (test code = 0.2 % 706-2) GRAN MAT x10^3(ANC) 2.31 10*3/uL 1.88-7.09 (test code = 5362421601) IMM GRAN x10^3 (test <0.03 0-0.06 code = 1324717510) LYMPH x10^3 (test code 1.21 10*3/uL 1.32-3.29 L = 731-0) MONO x10^3 (test code 0.54 10*3/uL 0.33-0.92 = 742-7) EOS x10^3 (test code = 0.03 10*3/uL 0.03-0.39 711-2) BASO x10^3 (test code <0.03 0.01-0.07 = 704-7) Lab Interpretation Abnormal (test code = 23856-4) [facility]
[2022-12-27 21:35] LABS: Absolute Lymphocytes (CBC) 2.4 K/uL (0.7-4.9); Hematocrit 38.2 % (36.0-45.0); Lymphocytes % 37.3 % (15.3-44.8); MPV 8.6 fL (7.6-11.3); Platelets 237 thou/uL (152-406)
[2022-12-27] MEDS ORDERED: NA CHLORIDE 0.9% 1,000 ML ONE (21:36)
[2022-12-27 21:53] LABS: ALT/SGPT 26 U/L (13-56); AST/SGOT 17 U/L (15-37); Albumin 3.5 g/dL (3.4-5.0); Alkaline Phosphatase 110 U/L (45-117); BUN Blood Urea Nitrogen 8 mg/dL (7-18); Bicarbonate 28 mEq/L (21-32); Bilirubin Direct 0.1 mg/dL (0-0.2); Bilirubin Indirect, Calculated 0.4 mg/dL (0.2-0.8); Bilirubin Total 0.5 mg/dL (0.2-1.0); Glomerular Filtration Rate 72 ml/min (=/>90); Glucose Level 114 mg/dL (74-106); HDL Cholesterol 50 mg/dL (40-60); LDL Cholesterol, Calculated 39 mg/dL (<130); Magnesium 2.2 mg/dL (1.6-2.4); NT PRO-BNP 43 pg/mL (<125); Potassium 3.1 mEq/L (3.5-5.1); Protein, Total 7.1 g/dL (6.4-8.2); Sodium Level 140 mEq/L (136-145); Troponin High Sensitivity 3.3 pg/mL (<58.9)
--- NOTE | 2022-12-27 21:55 | RAD REPORT ---
EXAM DESCRIPTION: RAD - Chest Single View - 12/27/2022 9:43 pm CLINICAL HISTORY: COUGH Chest pain. COMPARISON: Chest Pa And Lat (2 Views) dated 12/10/2022; Chest Single View dated 10/16/2021; Chest Sin gle View dated 09/26/2021; Chest Single View dated 03/20/2020 FINDINGS: Portable technique limits examination quality. The lungs are grossly clear. The heart is normal in size. Mildly tortuous thoracic aorta. No displace d fractures. IMPRESSION: No acute intrathoracic process suspected.
[2022-12-27 22:00] LABS: C-Reactive Protein < 2.90 mg/L (<3.00)
--- NOTE | 2022-12-27 22:24 | RAD REPORT ---
EXAM DESCRIPTION: CT - Head Brain Wo Cont - 12/27/2022 10:18 pm CLINICAL HISTORY: Dizziness;Headache Headache, drowsiness, hypertension COMPARISON: <Comparisons> TECHNIQUE: All CT scans are performed using dose optimization technique as appropriate and may inclu de automated exposure control or mA/KV adjustment according to patient size. FINDINGS: No intracranial hemorrhage, hydrocephalus or extra-axial fluid collection.Mild brain atrop hy.No areas of brain edema or evidence of midline shift. The paranasal sinuses and mastoids are clear. The calvarium is intact. IMPRESSION: No acute intracranial abnormality.
--- NOTE | 2022-12-27 22:27 | RAD REPORT ---
EXAM DESCRIPTION: CT - Head angio - 12/27/2022 10:18 pm CLINICAL HISTORY: Dizziness;Headache Headache, drowsiness, hypertension COMPARISON: <Comparisons> TECHNIQUE: CT angiography of the head was performed with MIPs. All CT scans are performed using dose optimization technique as appropriate and may include automated exposure control or mA/KV adjustment according to patient size. FINDINGS: No evidence of large vessel occlusion. No evidence of aneurysm is detected. No flow-limiti ng stenosis or vascular malformation identified. Antegrade flow is seen in the vertebral arteries. The vertebral arteries are codominant. The visualized dural venous sinuses are patent. IMPRESSION: No significant flow abnormality is detected.
--- NOTE | 2022-12-27 22:30 | RAD REPORT ---
EXAM DESCRIPTION: CT - Neck Angio - 12/27/2022 10:18 pm CLINICAL HISTORY: HEADACHE Headache, drowsiness COMPARISON: <Comparisons> TECHNIQUE: CT angiography of the neck vessels was performed with MIPs. All CT scans are performed using dose optimization technique as appropriate and may include automated exposure control or mA/KV adjustment according to patient size. FINDINGS: A left aortic arch is identified with normal three vessel configuration of the great vesse ls. No significant flow abnormality is seen of the common carotid bilaterally. Moderate mixed plaque is present proximal left internal carotid artery resulting in 50% stenosis base d on NASCET criteria. Mild mixed plaque is present proximal right internal carotid artery resulting m ild stenosis less than 50% based on NASCET criteria. Normal flow is seen within both vertebral arteries. IMPRESSION: 50% stenosis suspected based on NASCET criteria proximal left internal carotid artery. NASCET criteria used. Mild 0-49% stenosis Moderate 50-69% stenosis Severe 70-99% stenosis
[2022-12-27] MEDS ORDERED: POTASSIUM 25 MEQ EFFERV TAB ONE ×2 (23:05→23:10)
[2022-12-27] MEDS ORDERED: CLOPIDOGREL 75 MG TABLET ONE (23:05)
[2022-12-27] MEDS ORDERED: ASPIRIN 81 MG CHEWABLE TABLET ONE (23:05)
[2022-12-27] MEDS ORDERED: FOLIC ACID 5 MG/ML VIAL ONE (23:06)
[2022-12-27 23:19] LABS: Specific Gravity 1.011 (1.005-1.030); Urine Bacteria None Seen /HPF (<20); Urine Bilirubin NEGATIVE (Negative); Urine Blood Negative (Negative); Urine Clarity Clear (Clear); Urine Color Colorless (Yellow); Urine Glucose NEGATIVE (Negative); Urine Protein NEGATIVE (Negative); Urine RBC <5 /HPF (None Seen); Urine Urobilinogen Normal (Normal)
[2022-12-27] MEDS ORDERED: ONDANSETRON 4 MG/2 ML VIAL ONE (23:20)
[2022-12-27] MEDS ORDERED: KETOROLAC 30 MG/ML INJ ONE (23:20)
--- NOTE | 2022-12-27 23:21 | ER ---
Nurse's Notes [facility] Name: Marisa Baker Age: 62 yrs Sex: Female : 1960 Arrival Date: 12/27/2022 Time: 20:32 Bed 5 Private MD: Diagnosis: Headache;Other visual disturbances-BLURRY;Occlusion and stenosis of unspecified carotid artery-VERTEBRAL STENOSIS LEFT 90%;Hypokalemia Presentation: 12/27 20:48 Chief complaint: Patient states: vertigo dizziness began last pm before bed reports kl woke up this am with blurred vision to left eye left side headache dizziness and nausea also reports tingling to bilateral fingers. Coronavirus screen: Vaccine status: Patient reports being unvaccinated. Ebola Screen: Patient negative for fever greater than or equal to 101.5 degrees Fahrenheit, and additional compatible Ebola Virus Disease symptoms. Initial Sepsis Screen: Does the patient meet any 2 criteria? No. Patient's initial sepsis screen is negative. Does the patient have a suspected source of infection? No. Patient's initial sepsis screen is negative. Risk Assessment: Do you want to hurt yourself or someone else? Patient reports no desire to harm self or others. Onset of symptoms was December 26, 2022. 20:48 Method Of Arrival: Wheelchair 20:48 Acuity: YESSI 3 kl Triage Assessment: 20:51 General: Appears in no apparent distress. Behavior is calm, appropriate for age. Pain: Complains of pain in forehead, left pentecostalism, left temporal area and left occipital area. Neuro: Level of Consciousness is awake, alert, obeys commands, Oriented to person, place, time, situation, Speech is normal, Facial symmetry appears normal. Respiratory: No deficits noted. Airway is patent Trachea midline Respiratory effort is even, unlabored, Respiratory pattern is regular, symmetrical. 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 - Social history:: Smoking status: Patient/guardian denies using tobacco, but has a distant history of tobacco abuse. Screenin:34 [facility] ED Fall Risk Assessment (Adult) History of falling in the last 3 months, jb4 including since admission No falls in past 3 months (0 pts) Confusion or Disorientation No (0 pts) Score/Fall Risk Level 0 - 2 = Low Risk Oriented to surroundings, Maintained a safe environment. Abuse screen: Denies threats or abuse. Nutritional screening: No deficits noted. Tuberculosis screening: No symptoms or risk factors identified. Assessment: 21:00 General: Appears in no apparent distress. comfortable, Behavior is calm, cooperative, jb4 appropriate for age. Pain: Complains of pain in chest Pain does not radiate. Pain currently is 0 out of 10 on a pain scale. Neuro: Level of Consciousness is awake, alert, obeys commands, Oriented to person, place, time, situation. Cardiovascular: Patient's skin is warm and dry. Respiratory: Airway is patent Respiratory effort is even, unlabored, Respiratory pattern is regular, symmetrical. GI: No signs and/or symptoms were reported involving the gastrointestinal system. : No signs and/or symptoms were reported regarding the genitourinary system. EENT: No signs and/or symptoms were reported regarding the EENT system. Derm: Skin is intact, Skin is pink, warm \\T\\ dry. Musculoskeletal: Circulation, motion, and sensation intact. Range of motion: intact in all extremities. Vital Signs: 20:48 BP 150 / 103; Pulse 76; Resp 18; Temp 98.1(O); Pulse Ox 98% on R/A; Weight 61.23 kg; kl Height 5 ft. 3 in. ; 22:04 BP 141 / 80; Pulse 73; Resp 16; Pulse Ox 97% on R/A; jb4 23:00 BP 147 / 93; Pulse 67; Resp 16; Pulse Ox 97% on R/A; jb4 12/28 00:00 BP 115 / 79; Pulse 71; Resp 16; Pulse Ox 97% on R/A; jb4 12/27 20:48 Body Mass Index 23.91 (61.23 kg, 160.02 cm) ED Course: 12/27 19:00 Arm band placed on left wrist. vc1 19:00 Patient has correct armband on for positive identification. Bed in low position. Call vc1 light in reach. Pulse ox on. NIBP on. 20:35 Patient arrived in ED. jj6 20:44 Alvino Mckinley MD is Attending Physician. graham 20:50 Triage completed. kl 21:04 Leon Covarrubias, RN is Primary Nurse. jb4 21:20 Initial lab(s) drawn, by me, sent to lab. Inserted saline lock: 20 gauge in right jb4 forearm, using aseptic technique. Blood collected. 21:23 Troponin HS Sent. jb4 21:23 PT-INR Sent. jb4 21:23 NT PRO-BNP Sent. jb4 21:23 LFT's Sent. jb4 21:23 Magnesium Sent. jb4 21:23 CBC with Diff Sent. jb4 21:23 Basic Metabolic Panel Sent. jb4 21:23 CRP Sent. jb4 21:23 Lipid Profile Sent. jb4 21:45 XRAY Chest (1 view) In Process Unspecified. EDMS 22:20 CT Head Brain wo Cont In Process Unspecified. EDMS 22:20 CT Head Angio In Process Unspecified. EDMS 22:20 CT Neck Angio In Process Unspecified. EDMS 23:17 Mata Limon MD is Hospitalizing Provider. [facility] 12/28 00:33 No provider procedures requiring assistance completed. Patient admitted, IV remains in jb4 place. Administered Medications: 12/27 21:31 Drug: NS 0.9% IV 1000 ml Route: IV; Rate: 1 bolus; Site: right antecubital; jb4 23:10 Drug: Aspirin PO Chewable Tablet 324 mg Route: PO; vc1 23:10 Drug: Clopidogrel PO 75 mg Route: PO; vc1 23:22 Drug: Ketorolac IVP 30 mg Route: IVP; Site: right forearm; vc1 23:22 Drug: Ondansetron IVP 4 mg Route: IVP; Site: right forearm; vc1 23:23 Not Given (Other Intervention Used): Potassium PO Effervescent Tablet 25 mEq PO once; vc1 dissolve in 4 ounces of water or juice 23:23 Drug: foLIC Acid IVPB 1 mg Route: IVPB; Site: right forearm; vc1 23:24 Drug: Potassium Chloride PO 20 mEq Route: PO; vc1 23:24 Drug: NS 0.9% with KCl IV 20 mEq/L 1000 ml Route: IV; Rate: 125 ml/hr; Site: right vc1 forearm; Medication: 22:05 VIS not applicable for this client. vc1 Outcome: 23:21 Decision to Hospitalize by Provider. graham 12/28 00:33 Admitted to Med/surg accompanied by nurse, via wheelchair, room 228, with chart, Report jb4 called to AMY Pulido Condition: stable Discharge instructions given to patient, Instructed on the need for admit, Demonstrated understanding of instructions. 00:35 Patient left the ED. jb4 Signatures: Dispatcher [employer] EDMS Kristin Salmon, RN RN Alvino Gomez MD MD cha Bryson, James, RN RN jb4 Silvia Toledo jj6 Angela Galindo RN RN vc1
--- NOTE | 2022-12-27 23:21 | EDPHYS ---
Physician Documentation [facility] Name: Marisa Baker Age: 62 yrs Sex: Female : 1960 Arrival Date: 12/27/2022 Time: 20:32 Bed 5 Private MD: ED Physician Alvino Mckinley HPI: 12/27 23:07 This 62 yrs old Female presents to ER via Wheelchair with complaints of graham Numbness Of Arm, Dizziness, Blurred Vision, Shortness Of Breath, Chest Pain, Nausea/Vomiting, Headache. Historical: - Allergies: 20:50 Adhesives; kl 20:50 Codeine; kl 20:50 diphenhydramine HCl; irritability; kl - PMHx: 20:50 "small blood clot somewhere"; CVA; tia; left carotid 98% blocked; kl - Immunization history:: Adult Immunizations not immunized. - Social history:: Smoking status: Patient/guardian denies using tobacco, but has a distant history of tobacco abuse. ROS: 23:14 Constitutional: Negative for fever, chills, and weight loss, Eyes: Negative for injury, graham pain, redness, and discharge, ENT: Negative for injury, pain, and discharge, Neck: Negative for injury, pain, and swelling, Cardiovascular: Negative for chest pain, palpitations, and edema, Respiratory: Negative for shortness of breath, cough, wheezing, and pleuritic chest pain, Abdomen/GI: Negative for abdominal pain, nausea, vomiting, diarrhea, and constipation, Back: Negative for injury and pain, : Negative for injury, bleeding, discharge, and swelling, MS/Extremity: Negative for injury and deformity, Skin: Negative for injury, rash, and discoloration, Psych: Negative for depression, anxiety, suicide ideation, homicidal ideation, and hallucinations, Allergy/Immunology: Negative for hives, rash, and allergies, Endocrine: Negative for neck swelling, polydipsia, polyuria, polyphagia, and marked weight changes, Hematologic/Lymphatic: Negative for swollen nodes, abnormal bleeding, and unusual bruising. 23:14 Neuro: Positive for dizziness, headache. Exam: 23:14 Constitutional: This is a well developed, well nourished patient who is awake, alert, graham and in no acute distress. Head/Face: Normocephalic, atraumatic. Eyes: Pupils equal round and reactive to light, extra-ocular motions intact. Lids and lashes normal. Conjunctiva and sclera are non-icteric and not injected. Cornea within normal limits. Periorbital areas with no swelling, redness, or edema. ENT: Nares patent. No nasal discharge, no septal abnormalities noted. Tympanic membranes are normal and external auditory canals are clear. Oropharynx with no redness, swelling, or masses, exudates, or evidence of obstruction, uvula midline. Mucous membranes moist. Neck: Trachea midline, no thyromegaly or masses palpated, and no cervical lymphadenopathy. Supple, full range of motion without nuchal rigidity, or vertebral point tenderness. No Meningismus. Chest/axilla: Normal chest wall appearance and motion. Nontender with no deformity. No lesions are appreciated. Cardiovascular: Regular rate and rhythm with a normal S1 and S2. No gallops, murmurs, or rubs. Normal PMI, no JVD. No pulse deficits. Respiratory: Lungs have equal breath sounds bilaterally, clear to auscultation and percussion. No rales, rhonchi or wheezes noted. No increased work of breathing, no retractions or nasal flaring. Abdomen/GI: Soft, non-tender, with normal bowel sounds. No distension or tympany. No guarding or rebound. No evidence of tenderness throughout. Back: No spinal tenderness. No costovertebral tenderness. Full range of motion. Female : Normal external genitalia. Skin: Warm, dry with normal turgor. Normal color with no rashes, no lesions, and no evidence of cellulitis. MS/ Extremity: Pulses equal, no cyanosis. Neurovascular intact. Full, normal range of motion. Neuro: Awake and alert, GCS 15, oriented to person, place, time, and situation. Cranial nerves II-XII grossly intact. Motor strength 5/5 in all extremities. Sensory grossly intact. Cerebellar exam normal. Normal gait. Psych: Awake, alert, with orientation to person, place and time. Behavior, mood, and affect are within normal limits. 23:14 ECG was reviewed by the Attending Physician. Vital Signs: 20:48 BP 150 / 103; Pulse 76; Resp 18; Temp 98.1(O); Pulse Ox 98% on R/A; Weight 61.23 kg; kl Height 5 ft. 3 in. ; 22:04 BP 141 / 80; Pulse 73; Resp 16; Pulse Ox 97% on R/A; jb4 23:00 BP 147 / 93; Pulse 67; Resp 16; Pulse Ox 97% on R/A; jb4 12/28 00:00 BP 115 / 79; Pulse 71; Resp 16; Pulse Ox 97% on R/A; jb4 12/27 20:48 Body Mass Index 23.91 (61.23 kg, 160.02 cm) kl MDM: 12/27 20:44 Patient medically screened. graham 23:15 Differential diagnosis: tendonitis. Data reviewed: vital signs, nurses notes, lab test graham result(s), EKG, radiologic studies, CT scan, plain films. Consideration of Admission/Observation Patient was admitted/placed on observation. Escalation of care including admission/observation considered. Management of patient was discussed with the following: House Steward/Stewardess: DR SANDERSON. I considered the following discharge prescriptions or medication management in the emergency department Medications were administered in the Emergency Department. See MAR. Independent interpretation of the following test(s) in the Emergency Department EKG: See my EKG interpretation above. Test considered but Not performed: MRI: NO MRI BRAIN. Care significantly affected by the following chronic conditions: CAROTID AND VERTEBRAL ARTERY DISEASE. Counseling: I had a detailed discussion with the patient and/or guardian regarding: the historical points, exam findings, and any diagnostic results supporting the discharge/admit diagnosis, the presence of at least one elevated blood pressure reading (>120/80) during this emergency department visit, lab results, radiology results, the need for further work-up and treatment in the hospital. 12/27 20:58 Order name: Basic Metabolic Panel; Complete Time: 22:24 [facility] 12/27 20:58 Order name: CBC with Diff; Complete Time: 21:52 [facility] 12/27 20:58 Order name: LFT's; Complete Time: 22:24 [facility] 12/27 20:58 Order name: Magnesium; Complete Time: 22:24 [facility] 12/27 20:58 Order name: NT PRO-BNP; Complete Time: 22:24 [facility] 12/27 20:58 Order name: PT-INR; Complete Time: 21:52 [facility] 12/27 20:58 Order name: Troponin HS; Complete Time: 22:24 [facility] 12/27 20:58 Order name: Urinalysis w/ reflexes [facility] 12/27 20:58 Order name: Lipid Profile; Complete Time: 22:24 [facility] 12/27 20:58 Order name: CRP; Complete Time: 22:24 [facility] 12/27 23:39 Order name: Urinalysis w/ reflexes [facility] 12/27 23:39 Order name: Basic Metabolic Panel [facility] 12/27 23:39 Order name: Basic Metabolic Panel [facility] 12/27 23:39 Order name: Comprehensive Metabolic Panel [facility] 12/27 23:39 Order name: Comprehensive Metabolic Panel [facility] 12/27 23:39 Order name: Magnesium [facility] 12/27 23:39 Order name: Magnesium [facility] 12/27 23:39 Order name: Troponin High Sensitivity [facility] 12/27 23:39 Order name: Troponin High Sensitivity [facility] 12/27 23:39 Order name: Troponin High Sensitivity [facility] 12/27 23:39 Order name: Troponin High Sensitivity [facility] 12/27 20:58 Order name: XRAY Chest (1 view); Complete Time: 22:24 [facility] 12/27 20:58 Order name: CT Head Brain wo Cont; Complete Time: 22:25 [facility] 12/27 21:01 Order name: CT Head Angio; Complete Time: 22:42 [facility] 12/27 21:01 Order name: CT Neck Angio; Complete Time: 22:42 [facility] 12/27 20:58 Order name: EKG; Complete Time: 20:59 [facility] 12/27 23:39 Order name: CONS Physician Consult [facility] 12/27 23:39 Order name: Heart Healthy [facility] 12/27 23:39 Order name: NPO [facility] 12/27 20:58 Order name: Cardiac monitoring; Complete Time: 21:23 [facility] 12/27 20:58 Order name: EKG - Nurse/Tech; Complete Time: 21:23 [facility] 12/27 20:58 Order name: IV Saline Lock; Complete Time: 21:23 [facility] 12/27 20:58 Order name: Labs collected and sent; Complete Time: 21:23 [facility] 12/27 20:58 Order name: O2 Per Protocol; Complete Time: 21:23 [facility] 12/27 20:58 Order name: O2 Sat Monitoring; Complete Time: 21:23 [facility] EC:14 Rate is 71 beats/min. Rhythm is regular. QRS Logan is Normal. LA interval is normal. QRS graham interval is normal. QT interval is normal. No Q waves. T waves are Normal. No ST changes noted. Clinical impression: Normal ECG, NSR w/ Non-specific ST/T Changes, and No evidence of ischemia. Interpreted by me. Reviewed by me. Administered Medications: 21:31 Drug: NS 0.9% IV 1000 ml Route: IV; Rate: 1 bolus; Site: right antecubital; jb4 23:10 Drug: Aspirin PO Chewable Tablet 324 mg Route: PO; vc1 23:10 Drug: Clopidogrel PO 75 mg Route: PO; vc1 23:22 Drug: Ketorolac IVP 30 mg Route: IVP; Site: right forearm; vc1 23:22 Drug: Ondansetron IVP 4 mg Route: IVP; Site: right forearm; vc1 23:23 Not Given (Other Intervention Used): Potassium PO Effervescent Tablet 25 mEq PO once; vc1 dissolve in 4 ounces of water or juice 23:23 Drug: foLIC Acid IVPB 1 mg Route: IVPB; Site: right forearm; vc1 23:24 Drug: Potassium Chloride PO 20 mEq Route: PO; vc1 23:24 Drug: NS 0.9% with KCl IV 20 mEq/L 1000 ml Route: IV; Rate: 125 ml/hr; Site: right vc1 forearm; Disposition Summary: 12/27/22 23:21 Hospitalization Ordered Hospitalization Status: Observation graham Provider: Mata Limon cha [facility] graham Condition: Fair graham Problem: new graham Symptoms: are unchanged graham Bed/Room Type: Standard [facility] Room Assignment: 228(12/28/22 00:07) eb1 Diagnosis - Headache graham - Other visual disturbances - BLURRY graham - Occlusion and stenosis of unspecified carotid artery - VERTEBRAL STENOSIS LEFT 90% graham - Hypokalemia graham Forms: - Medication Reconciliation Form graham - SBAR form graham - Leadership Thank You Letter graham Signatures: Dispatcher [employer] Kristin Spicer RN RN kl Anderson, Corey, MD MD cha Bryson, James, RN RN jb4 Marilu Bonds RN RN eb1 Angela Galindo RN RN vc1 Corrections: (The following items were deleted from the chart) 12/28 00:07 12/27 23:21 graham eb1
[2022-12-27] MEDS ORDERED: POTASSIUM CL SA 10 MEQ TAB PO ONE (23:23)
[2022-12-27] MEDS ORDERED: NS KCL 20MEQ 1,000 ML IV ONE (23:23)
--- NOTE | 2022-12-27 23:30 | P.HP ---
Certification for Inpatient Patient admitted to: Observation With expected LOS: <2 Midnights Practitioner: I am a practitioner with admitting privileges, knowledge of patient current condition, hospital course, and medical plan of care. Services: Services provided to patient in accordance with Admission requirements found in Title 42 Section 412.3 of the Code of Federal Regulations Patient History Date of Service: 12/28/22 Reason for admission: Chest pain History of Present Illness: 62-year-old female with a past medical history of hypertension, hyperlipidemia, anxiety depression, presents to the emergency room with dizziness.She reports dizziness started last night, associated with a headache, reports mild shortness of breath with chest pressure nonradiating. She reports when she woke up symptoms continued, she denies fever, vomiting diarrhea abdominal pain, edema. BP on arrival to the ER 50/103, she denies taking any medications for hypertension, hyperlipidemia, anticoagulation EKG normal sinus rhythm rate 71, nonspecific ST changes, no evidence of ischemia. Plan to admit for headache, blurry vision, chest pain. CTA of the neck IMPRESSION: 50% stenosis suspected based on NASCET criteria proximal left internal carotid artery. CTA of the head IMPRESSION: No significant flow abnormality is detected. CT headIMPRESSION: No acute intracranial abnormalityChest x-rayIMPRESSION: No acute intrathoracic process suspected laboratory evaluation, mild hypokalemia 3.1, CBC unremarkable, UA unremarkable,Laboratory evaluation mild kalemia 3.1, CBC unremarkable UA unremarkable Allergies adhesive tape Allergy (Verified 12/10/22 08:08) skin blisters codeine Allergy (Verified 12/10/22 08:31) Itching gabapentin Allergy (Verified 12/10/22 08:34) see com diphenhydramine HCl [From Benadryl Allergy] Adverse Reaction (Intermediate, Verified 12/10/22 08:08) agitation Home Medications: estradioL [Estradiol (Twice Weekly)] 1 each TD EVERY 7TH DAY 02/24/19 Aspirin [Low Dose Aspirin EC] 81 mg PO DAILY 30 Days #30 tablet. 09/26/21 Duloxetine HCl [Cymbalta] 09/26/21 Ezetimibe [Zetia] 10 mg PO 09/26/21 Folic Acid 1 mg PO DAILY 30 Days #30 tablet 09/26/21 - Past Medical/Surgical History Diabetic: No -: Hypertension -: Hyperlipidemia -: hypotension -: hysterectomy -: x 3 -: deanna -: hemrrhoidectomy -: tonsil & adenoid removal -: eyelids lifted -: bunionectomy -: R shoulder sx Psychosocial/ Personal History: Patient lives at home with her - Family History Father Notes: alcoholic Mother -: Hypertension, Cancer Sister -: Hypertension, Seizures Notes: Yisel Salinas HTN Brother -: Hypertension - Social History Alcohol use: No CD- Drugs: No Caffeine use: Yes Review of Systems 10-point ROS is otherwise unremarkable Physical Examination - Physical Exam General: Alert, In no apparent distress, Oriented x3 HEENT: Atraumatic, Normocephalic, PERRLA Neck: Supple, 2+ carotid pulse no bruit Respiratory: Clear to auscultation bilaterally, Normal air movement Cardiovascular: No edema, Normal pulses, Regular rate/rhythm, Normal S1 S2 Capillary refill: <2 Seconds Gastrointestinal: Normal bowel sounds, Soft and benign Musculoskeletal: No clubbing, No swelling Integumentary: No rashes, No breakdown Neurological: Normal speech, Normal strength at 5/5 x4 extr, Cranial nerves 3-12 intact, Normal affect - Studies Laboratory Data (last 24 hrs) 12/27/22 12/27/22 12/27/22 21:20 21:20 21:20 WBC 6.40 Hgb 12.7 Hct 38.2 Plt Count 237 PT 11.0 INR 1.00 Sodium 140 Potassium 3.1 L BUN 8 Creatinine 0.91 Glucose 114 H Magnesium 2.2 Total Bilirubin 0.5 AST 17 ALT 26 Alkaline Phosphatase 110 Triglycerides 333 H Cholesterol 156 HDL Cholesterol 50 Cholesterol/HDL Ratio 3.12 Assessment and Plan - Plan Assessment plan Headache dizziness CAD with carotid artery stenosis Chest pain rule out [place] Hypokalemia Hypertension uncontrolled Hyperlipidemia uncontrolled DVT prophylaxis Assessment plan Headache dizziness CAD with coronary artery stenosis Neuro consult, CT of the head, CT of the neck, CTA of the neck IMPRESSION: 50% stenosis suspected based on NASCET criteria proximal left internal carotid artery. CTA of the head IMPRESSION: No significant flow abnormality is detected. Chest x-rayIMPRESSION: No acute intrathoracic process suspected laboratory evaluation, Findings: 1. Right common carotid, right internal carotid, and right external carotids are all normal. 2. The right vertebral artery is normal. No disease. 3. Left common carotid is normal, left internal carotid artery is normal, the left external carotid has proximal 50% stenosis. 4. The left vertebral artery at the takeoff, there is 90% stenosis. Conclusion: OPERATIVE REPORT (Continued) NAME: JEFFRY SALGADO CC: Macario Meehan OPERATIVE REPORT 1. Severe left vertebral artery stenosis, but widely patent right vertebral artery. 2. Moderate left external carotid artery stenosis Chest pain rule out [place] Telemetry, trend troponins, cardiology consulted As needed analgesics, antiemetics EKG normal sinus rhythm rate 71, nonspecific ST changes, no evidence of ischemia Lipid panel Hypokalemia mild kalemia 3.1, Trend electrolytes replace as needed Hypertension uncontrolled Hyperlipidemia uncontrolled Initiate antihypertension's, antihyperlipidemia medications Full code Diet n.p.o. after midnight DVT prophylaxis Discharge Plan: Home Plan to discharge in: 24 Hours - Advance Directives Does patient have a Living Will: No Does patient have a Durable POA for Healthcare: No - Code Status/Comfort Care Code Status: Full Code Physician Review: Patient Assessed, Agree with Above Assessment and Plan Time Spent Managing Pts Care (In Minutes): 50
[2022-12-27] MEDS ORDERED: ONDANSETRON 4 MG/2 ML VIAL IV PRN (23:37)
[2022-12-27] MEDS ORDERED: ACETAMINOPHEN 500 MG TAB PO PRN (23:37)
[2022-12-28] MEDS ORDERED: TRAMADOL HCL 50 MG TAB PO PRN (00:39)
[2022-12-28] MEDS ORDERED: MORPHINE 2 MG/ML SYR IV PRN (00:39)
[2022-12-28 01:17] VITALS: BMI 24.7
[2022-12-28] MEDS: METOPROLOL TAR 25 MG TAB PO SCH ×2 (01:40→05:41)
[2022-12-28 06:38] LABS: Albumin 3.1 g/dL (3.4-5.0); Bilirubin Total 0.3 mg/dL (0.2-1.0); Magnesium 2.3 mg/dL (1.6-2.4); Protein, Total 6.1 g/dL (6.4-8.2)
[2022-12-28] MEDS ORDERED: CLOPIDOGREL 75 MG TABLET PO SCH (09:00)
[2022-12-28] MEDS ORDERED: ASPIRIN 325 MG TAB PO SCH (09:00)
--- NOTE | 2022-12-28 09:14 | P.DS ---
Admission Date: 12/27/22 Discharge Date: 12/28/22 Disposition: ROUTINE DISCHARGE Discharge Condition: GOOD Reason for Admission: Dizziness Brief History of Present Illness: Dizziness Hospital Course: Patient is 62 years of age previously well no past medical history does not take any medications started having some dizziness vertigo little sick came into the hospital CT scans of the head including CT angiograms are all negative she has 50% left internal carotid artery stenosis still feeling a little dizzy able to ambulate no obvious weakness of her extremity neurological exam is completely normal no cranial nerve deficit reported chemistries unremarkable plan to discharge home on meclizine follow-up with primary care doctor vital signs all stable Vital Signs/Physical Exam: Temp Pulse Resp BP Pulse Ox 98 F 64 18 117/67 94 12/28/22 04:00 12/28/22 04:00 12/28/22 04:00 12/28/22 04:00 12/28/22 04:00 Laboratory Data at Discharge: WBC 6.40 thou/uL (4.3-10.9) 12/27/22 21:20 Hgb 12.7 g/dL (12.0-15.0) 12/27/22 21:20 Hct 38.2 % (36.0-45.0) 12/27/22 21:20 Plt Count 237 thou/uL (152-406) 12/27/22 21:20 PT 11.0 SECONDS (9.5-12.5) 12/27/22 21:20 INR 1.00 12/27/22 21:20 Sodium 141 mEq/L (136-145) 12/28/22 06:01 Potassium 4.0 mEq/L (3.5-5.1) D 12/28/22 06:01 BUN 7 mg/dL (7-18) 12/28/22 06:01 Creatinine 0.80 mg/dL (0.55-1.02) 12/28/22 06:01 Glucose 87 mg/dL (74-106) 12/28/22 06:01 Magnesium 2.3 mg/dL (1.6-2.4) 12/28/22 06:01 Total Bilirubin 0.3 mg/dL (0.2-1.0) 12/28/22 06:01 AST 15 U/L (15-37) 12/28/22 06:01 ALT 21 U/L (13-56) 12/28/22 06:01 Alkaline Phosphatase 99 U/L (45-117) 12/28/22 06:01 Triglycerides 333 mg/dL (<150) H 12/27/22 21:20 Cholesterol 156 mg/dL (<200) 12/27/22 21:20 HDL Cholesterol 50 mg/dL (40-60) 12/27/22 21:20 Cholesterol/HDL Ratio 3.12 12/27/22 21:20 Home Medications: Promethazine HCl 12.5 mg PO Q6HP PRN 5 Days #20 12/28/22 Promethazine Tab [Phenergan*] 12.5 mg PO Q6HP PRN 5 Days #20 tab 12/28/22 New Medications: Promethazine Tab [Phenergan*] 12.5 mg PO Q6HP PRN 5 Days #20 tab PRN Reason: Dizziness Promethazine HCl 12.5 mg PO Q6HP PRN 5 Days #20 PRN Reason: vertigo Followup: Nelson Jacobson MD [Primary Care Provider] -
[2022-12-28 09:34] VITALS: BP 141/75; TEMP 97.3
[2022-12-28 09:39] VITALS: O2SAT 98
[2022-12-28] MEDS ORDERED: ATORVASTATIN 20 MG TAB PO SCH (21:00)
--- NOTE | 2022-12-29 15:31 | EKG ---
Test Date: 2022-12-27 Test Time: 21:11:24 Senior Water/Wastewater Engineer: RV MEASUREMENT RESULTS: Intervals: Rate: 71 [place]: 132 QRSD: 86 QT: 400 QTc: 434 [place]: P: 31 [place]: 132 QRS: 7 T: 48 INTERPRETIVE STATEMENTS: Normal sinus rhythm Normal ECG Compared to ECG 12/10/2022 08:26:12 Fusion complex(es) no longer present Electronically Signed On 12-29-22 15:28:48 CDT by Macario Meehan
== END 2022-12-28 11:30 | disposition home or self-care (01) ==
LOC: ER 20:32 → ERHOLD 23:31 → 2ND 12-28 00:26
PROVIDERS: ADMIT Internal Medicine Sleep Medicine; ATTEND Internal Medicine Sleep Medicine
DX: R07.9 Chest pain, unspecified (principal); I25.10 Atherosclerotic heart disease of native coronary artery without angina pectoris; I65.29 Occlusion and stenosis of unspecified carotid artery; I10 Essential (primary) hypertension; F41.9 Anxiety disorder, unspecified; E87.6 Hypokalemia; F32.A Depression, unspecified; R42 Dizziness and giddiness; R51.9 Headache, unspecified; R06.02 Shortness of breath
CPT/HCPCS: 93005; 85025; 81001; 80048; 36415; 83735 ×2; 85610; 80061; 80076; 84484 ×3; 80053; 83880; 86140; 70450; 70496; 70498; 71045; 96375; 96374; 99285; Q9967; J2405; J7030; J3480

== ENCOUNTER 2023-12-28 10:59 | Emergency (ER) | payer BC ==
[2023-12-28 11:26] LABS: PT Prothrombin Time 11.1 SECONDS (9.4-12.5); Protime INR 0.99
[2023-12-28 11:29] LABS: Absolute Basophils 0.1 K/uL (0-0.5); Absolute Eosinophils 0.4 K/uL (0-0.5); Absolute Lymphocytes (CBC) 1.8 K/uL (0.7-4.9); Absolute Monocytes 0.7 K/uL (0.1-1.3); Basophils % 1.2 % (0-1.3); Eosinophils % 7.2 % (0-4.4); Hemoglobin 13.4 g/dL (12.0-15.0); Lymphocytes % 29.9 % (15.3-44.8); MCH 29.2 pg (27.0-35.0); MCHC 33.6 g/dL (32.0-36.0); MPV 8.9 fL (7.6-11.3); Monocytes % 11.9 % (3.3-12.3); Neutrophils % 49.8 % (41.7-73.7); Nucleated Red Blood Cells % 0.1 % (0-0); Platelets 227 thou/uL (152-406); Red Cell Distribution Width 13.3 % (12.1-15.2)
[2023-12-28 11:40] LABS: Albumin 3.9 g/dL (3.4-5.0); Albumin/Globulin Ratio 1.2 (1.1-1.8); Anion Gap 6.7 mEq/L (5.0-15.0); Bilirubin Direct 0.2 mg/dL (0-0.2); Bilirubin Indirect, Calculated 0.5 mg/dL (0.2-0.8); Bilirubin Total 0.7 mg/dL (0.2-1.0); Globulin 3.3 g/dL (2.3-3.5); Potassium 3.7 mEq/L (3.5-5.1); Protein, Total 7.2 g/dL (6.4-8.2); Troponin High Sensitivity 3.9 pg/mL (<58.9)
--- NOTE | 2023-12-28 11:56 | RAD REPORT ---
EXAM DESCRIPTION: US - Extremity Venous Uni Ltd - 12/28/2023 11:40 am CLINICAL HISTORY: Pain COMPARISON: None. TECHNIQUE: Real-time sonographic evaluation of the left lower extremity deep venous system was perfo rmed. FINDINGS: Normal compressibility, flow augmentation, phasic flow and spontaneous flow is identified in the left lower extremity deep venous system. No intraluminal filling defects seen. IMPRESSION: No DVT in the left lower extremity.
--- NOTE | 2023-12-28 11:57 | RAD REPORT ---
EXAM DESCRIPTION: RAD - Chest Single View - 12/28/2023 11:47 am CLINICAL HISTORY: CHEST PAIN COMPARISON: Chest Single View dated 12/27/2022; Chest Pa And Lat (2 Views) dated 12/10/2022; Chest Sin gle View dated 10/16/2021; Chest Single View dated 09/26/2021 FINDINGS: Lines: None. Lungs: No evidence of edema or pneumonia. Pleural: No significant pleural effusions or pneumothorax. Cardiac: The heart size is within normal limits. Mediastinum: Within normal limits. Bones: No acute fractures. Other: None IMPRESSION: No acute cardiopulmonary disease.
--- NOTE | 2023-12-28 12:28 | RAD REPORT ---
EXAM DESCRIPTION: CT - Chest For Pe Angio - 12/28/2023 12:17 pm CLINICAL HISTORY: CHEST PAIN COMPARISON: Chest For Pe Angio dated 03/20/2020; Chest For Pe Angio dated 03/03/2019; CTANGIO CHEST F OR PE dated 03/25/2014; CTANGIO CHEST FOR PE dated 01/29/2013 TECHNIQUE: Dynamically enhanced axial 3 mm thick images of the chest were obtained during administra tion of <100> mL Isovue 370 IV contrast. Coronal and oblique reconstruction images were generated and reviewed. Exam utilizes a protocol for optimal evaluation of pulmonary arterial tree. Maximum intensity projections 3D imaging was utilized All CT scans are performed using dose optimization technique as appropriate and may include automated exposure control or mA/KV adjustment according to patient size. FINDINGS: Chest Wall: No suspicious thyroid nodules or pathologic lymphadenopathy. Lungs: No acute abnormality. Emphysema. Pleura: No significant effusions or pneumothorax. Mediastinum/melinda: No pathologic lymphadenopathy. Pulmonary arteries/Aorta: No filling defect identified. No aortic aneurysm. Heart: No significant pericardial effusion. Normal heart size. Mild coronary calcifications Upper abdomen: No acute abnormality.Cholecystectomy. Partially measurable renal lesion which is proba wilner a cyst. Bones: No acute abnormality. IMPRESSION: Negative for pulmonary embolism. Emphysema. The USPTF recommends annual screening for lung cancer with low-dose CT (LDCT) in adults aged 50 to 8 0 years who have a 20 pack-year smoking history and currently smoke or have quit within the past 15 y ears.
--- NOTE | 2023-12-28 14:25 | ER ---
Nurse's Notes [facility] Name: Marisa Baker Age: 63 yrs Sex: Female : 1960 Arrival Date: 12/28/2023 Time: 10:59 Bed 2 Private MD: Diagnosis: Chest pain, unspecified Presentation: 12/27 11:02 Chief complaint: Sudden onset chest pain that radiates to bilateral arms and upper back hb and SOB that started while folding laundry. Coronavirus screen: At this time, the client does not indicate any symptoms associated with coronavirus-19. Ebola Screen: No symptoms or risks identified at this time. Initial Sepsis Screen: Does the patient meet any 2 criteria? No. Patient's initial sepsis screen is negative. Does the patient have a suspected source of infection? No. Patient's initial sepsis screen is negative. Risk Assessment: Do you want to hurt yourself or someone else? Patient reports no desire to harm self or others. Onset of symptoms was December 28, 2023. 11:02 Method Of Arrival: Ambulatory hb 11:02 Acuity: YESSI 2 hb Triage Assessment: 11:02 General: Appears in no apparent distress. Behavior is calm, cooperative. Pain: Pain hb currently is 7 out of 10 on a pain scale. Neuro: Level of Consciousness is awake, alert, obeys commands, Oriented to person, place, time, situation. Cardiovascular: Reports chest pain, shortness of breath, Patient's skin is warm and dry. Respiratory: Reports shortness of breath at rest on exertion Respiratory effort is even, unlabored, Respiratory pattern is regular, symmetrical. 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 - Infectious Disease History:: Denies. - Family history:: not pertinent. - Social history:: Smoking status: Patient/guardian denies using tobacco, but has a distant history of tobacco abuse. - Hospitalizations: : No recent hospitalization is reported. Screenin:15 [facility] ED Fall Risk Assessment (Adult) History of falling in the last 3 months, ko1 including since admission No falls in past 3 months (0 pts) Confusion or Disorientation No (0 pts) Intoxicated or Sedated No (0 pts) Impaired Gait No (0 pts) Mobility Assist Device Used No (0 pt) Altered Elimination No (0 pt) Score/Fall Risk Level 0 - 2 = Low Risk Oriented to surroundings, Maintained a safe environment, Educated pt \\T\\ family on fall prevention, incl call for assistance when getting out of bed, Assessed \\T\\ reinforced patient's understanding of fall precautions, Provided non-skid footwear, Hourly rounding (assess needs \\T\\ fall precautionary measures) done, Used ambulatory aids as needed (educated on \\T\\ assisted with), Used gait belt as appropriate. Abuse screen: Denies threats or abuse. Denies injuries from another. Nutritional screening: No deficits noted. Tuberculosis screening: No symptoms or risk factors identified. Assessment: 11:16 General: Appears in no apparent distress. Behavior is cooperative, appropriate for age, ko1 anxious. Pain: Complains of pain in chest Pain radiates to back Pain began gradually. Neuro: No deficits noted. Cardiovascular: Reports chest pain. Respiratory: No deficits noted. GI: No deficits noted. : No deficits noted. EENT: No deficits noted. Derm: No deficits noted. Musculoskeletal: No deficits noted. Vital Signs: 11:02 BP 161 / 98; Pulse 84; Resp 14; Temp 98.2(O); Pulse Ox 99% on R/A; Weight 68.04 kg; hb Height 5 ft. 3 in. ; Pain 7/10; 12:26 BP 156 / 101; Pulse 72; Resp 16; Pulse Ox 100% ; ko1 13:30 BP 148 / 99; Pulse 72; Resp 15; Pulse Ox 99% ; ko1 14:30 BP 154 / 88; Pulse 70; Resp 16; Pulse Ox 98% ; ko1 11:02 Body Mass Index 26.57 (68.04 kg, 160.02 cm) hb 11:02 Pain Scale: Adult hb ED Course: 11:01 Patient arrived in ED. ra3 11:01 Ashish De Los Santos MD is Attending Physician. rn 11:02 Arm band placed on. hb 11:14 Basic Metabolic Panel Sent. ko1 11:14 CBC with Diff Sent. ko1 11:14 LFT's Sent. ko1 11:14 NT PRO-BNP Sent. ko1 11:14 PT-INR Sent. ko1 11:14 Troponin HS Sent. ko1 11:15 Initial lab(s) drawn, by me, sent to lab. EKG done, by ED staff, reviewed by Ashish De Los Santos MD. Inserted saline lock: 20 gauge in right antecubital area, using aseptic technique. Blood collected. Flushed with 10 mL NS. Patient maintains SpO2 saturation greater than 95% on room air. 11:15 Provided Education on: call light, labs, meds. Client placed on continuous cardiac and ko1 pulse oximetry monitoring. NIBP monitoring applied. vehicle monitor technician on. Door closed. Noise minimized. Lights dimmed. Warm blanket given. Pillow given. 11:18 Ligia Panda, RN is Primary Nurse. ko1 11:19 Triage completed. hb 11:42 Extremity Venous Uni Ltd US In Process Unspecified. EDMS 11:49 XRAY Chest (1 view) In Process Unspecified. EDMS 12:18 CT Chest For PE Angio In Process Unspecified. EDMS 12:26 No provider procedures requiring assistance completed. ko1 12:26 Patient has correct armband on for positive identification. Allergy band placed. Placed ko1 in gown. Bed in low position. Call light in reach. Side rails up X2. 13:38 Troponin High Sensitivity Sent. dd2 14:30 IV discontinued, intact, bleeding controlled, No redness/swelling at site. Pressure ko1 dressing applied. Administered Medications: No medications were administered Medication: 11:15 VIS not applicable for this client. ko1 Outcome: 14:24 Discharge ordered by . rn 14:30 Discharged to home ambulatory, ko1 14:30 Condition: improved 14:30 Discharge instructions given to patient, Instructed on discharge instructions, follow up and referral plans. Demonstrated understanding of instructions, follow-up care, 14:39 Patient left the ED. ko1 Signatures: Dispatcher [employer] EDMS Ashish De Los Santos MD MD rn Baxter, Heather, RN RN Ligia Panda, RN RN ko1 Eboni Roth 3 CARLOS DENT RN RN dd2 Corrections: (The following items were deleted from the chart) 11:17 11:16 PMHx: "small blood clot somewhere"; ko1 ko1
--- NOTE | 2023-12-28 14:25 | EDPHYS ---
Physician Documentation [facility] Name: Marisa Baker Age: 63 yrs Sex: Female : 1960 Arrival Date: 12/28/2023 Time: 10:59 Bed 2 Private MD: ED Physician Ashish De Los Santos HPI: 12/27 11:25 This 63 yrs old Female presents to ER via Ambulatory with complaints of Chest Pain. rn 11:25 The patient or guardian reports chest pain that is located primarily in the substernal rn area. Onset: this morning. The pain does not radiate. Associated signs and symptoms: Pertinent positives: shortness of breath, Pertinent negatives: abdominal pain, cough, diaphoresis, dizziness, palpitations, syncope, vomiting. The chest pain is described as a heaviness, a pressure. Duration: The patient or guardian reports multiple episodes, that are intermittent. Modifying factors: The symptoms are alleviated by nothing. the symptoms are aggravated by nothing. Severity of pain: At its worst the pain was mild in the emergency department the pain is unchanged. The patient has experienced similar episodes in the past. Patient reports substernal chest pain, feels like something is sitting on her chest, nonradiating, no abdominal pain. About a week ago also noticed some pain in tenderness in the left calf. No history of DVT or PE. No vomiting or diaphoresis. Associated with mild shortness of breath. Has had chest pain before with negative workups.. 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 - Infectious Disease History:: Denies. - Family history:: not pertinent. - Social history:: Smoking status: Patient/guardian denies using tobacco, but has a distant history of tobacco abuse. - Hospitalizations: : No recent hospitalization is reported. ROS: 11:25 Constitutional: Negative for fever, chills, and weight loss, Cardiovascular: Positive rn for chest pain Respiratory: Negative for shortness of breath, cough, wheezing, and pleuritic chest pain, Abdomen/GI: Negative for abdominal pain, nausea, vomiting, diarrhea, and constipation, Back: Negative for injury and pain, MS/Extremity: Negative for injury and deformity, Skin: Negative for injury, rash, and discoloration, Neuro: Negative for headache, weakness, numbness, tingling, and seizure, Exam: 11:25 Constitutional: This is a well developed, well nourished patient who is awake, alert, rn and in no acute distress. Cardiovascular: Regular rate and rhythm. No pulse deficits. Respiratory: No increased work of breathing, no retractions or nasal flaring. Abdomen/GI: Soft, non-tender MS/ Extremity: Pulses equal, no cyanosis. Neurovascular intact. Full, normal range of motion. Equal circumference. Neuro: Awake and alert, GCS 15 16:21 ECG was reviewed by the Attending Physician. rn Vital Signs: 11:02 BP 161 / 98; Pulse 84; Resp 14; Temp 98.2(O); Pulse Ox 99% on R/A; Weight 68.04 kg; hb Height 5 ft. 3 in. ; Pain 7/10; 12:26 BP 156 / 101; Pulse 72; Resp 16; Pulse Ox 100% ; ko1 13:30 BP 148 / 99; Pulse 72; Resp 15; Pulse Ox 99% ; ko1 14:30 BP 154 / 88; Pulse 70; Resp 16; Pulse Ox 98% ; ko1 11:02 Body Mass Index 26.57 (68.04 kg, 160.02 cm) hb 11:02 Pain Scale: Adult hb MDM: 11:01 Patient medically screened. rn 14:22 Differential diagnosis: acute myocardial infarction, acute pericarditis, anxiety, rn coronary artery disease costochondritis, esophagitis, gastritis, gastroesophageal reflux disease (GERD), pericarditis, pleurisy, pneumothorax, pulmonary embolus, stable angina. HEART Score: History: Slightly Suspicious (0), ECG: Normal (0), Age: > 45 and < 65 years (1), Risk Factors: 1 or 2 risk factors (1), Troponin: < or = 1 x Normal Limit (0), Total Score = 2. Data reviewed: vital signs, nurses notes, lab test result(s), radiologic studies, CT scan, plain films, and as a result, I will discharge patient. Consideration of Admission/Observation Escalation of care including admission/observation considered. Previous workups manage admission notes reviewed, will discharge home with return precautions. CT PE protocol negative. Troponin negative x 2. No ischemia on EKG.. Care significantly affected by the following chronic conditions: Hypertension. Counseling: I had a detailed discussion with the patient and/or guardian regarding the historical points, exam findings, and any diagnostic results supporting the discharge/admit diagnosis, lab results, radiology results, the need for outpatient follow up, to return to the emergency department if symptoms worsen or persist or if there are any questions or concerns that arise at home. Response to treatment: the patient's symptoms have mildly improved after treatment, and as a result, I will discharge patient. Special discussion: Based on the patient's history, exam, and Dx evaluation, there is no indication for emergent intervention or inpatient Tx. It is understood by the patient/guardian that if the Sx's persist or worsen they need to return immediately for re-evaluation. I discussed with the patient/guardian in detail that at this point there is no indication for admission to the hospital. It is understood, however, that if the symptoms persist or worsen the patient needs to return immediately for re-evaluation. 12/27 11:02 Order name: Basic Metabolic Panel; Complete Time: 12/27 11:02 Order name: CBC with Diff; Complete Time: 12/27 11:02 Order name: LFT's; Complete Time: 12/27 11:02 Order name: NT PRO-BNP; Complete Time: 12/27 11:02 Order name: PT-INR; Complete Time: 12/27 11:02 Order name: Troponin HS; Complete Time: 12/27 13:25 Order name: Troponin High Sensitivity; Complete Time: 14:12/27 11:02 Order name: XRAY Chest (1 view); Complete Time: 12/27 11:16 Order name: Extremity Venous Uni Ltd US; Complete Time: 12/27 11:16 Order name: CT Chest For PE Angio; Complete Time: 12:43 12/27 11:02 Order name: Cardiac monitoring; Complete Time: 12/27 11:02 Order name: EKG - Nurse/Tech; Complete Time: 11:12/27 11:02 Order name: IV Saline Lock; Complete Time: 12/27 11:02 Order name: Labs collected and sent; Complete Time: : rn 12/27 11: Order name: O2 Per Protocol; Complete Time: rn 12/27 11: Order name: O2 Sat Monitoring; Complete Time: : rn EC:21 Rate is 71 beats/min. Rhythm is regular. QRS [place] is Normal. NV interval is normal. QRS rn interval is normal. QT interval is normal. No Q waves. T waves are Normal. No ST changes noted. Clinical impression: Normal ECG. Interpreted by me. Reviewed by me. Administered Medications: No medications were administered Disposition Summary: 12/28/23 14:24 Discharge Ordered Notes: Location: Home rn Problem: new rn Symptoms: have improved rn Condition: Stable rn Diagnosis - Chest pain, unspecified rn Followup: rn - With: Private Physician - When: As needed - Reason: Recheck today's complaints, Re-evaluation by your physician Discharge Instructions: - Discharge Summary Sheet rn - Nonspecific Chest Pain, Adult rn Forms: - Medication Reconciliation Form rn - Antibiotic applications intern - Prescription Opioid Use rn - Patient Portal Instructions rn - Leadership Thank You Letter rn Signatures: Dispatcher [employer] [facility] Ashish De Los Santos MD MD rn Oliver, Kathy, RN RN ko1 Corrections: (The following items were deleted from the chart) 11:03 11:03 BASIC METABOLIC PANEL+C.LAB.BRZ ordered. [facility] 11:03 11:03 CBC+H.LAB.BRZ ordered. [facility] 11:03 11:03 HEPATIC FUNCTION+C.LAB.BRZ ordered. [facility] 11:03 11:03 PROBNP+C.LAB.BRZ ordered. [facility] 11:03 11:03 PROTIME (+INR)+COAG.LAB.BRZ ordered. [facility] 11:03 11:03 Troponin High Sensitivity+C.LAB.BRZ ordered. [facility] 11:03 11:03 Chest Single View+RAD.RAD.BRZ ordered. [facility] 11:17 11:17 Chest For PE Angio+CT.RAD.BRZ ordered. [facility] 11:17 11:16 PMHx: "small blood clot somewhere"; ko1 ko1
[2023-12-28 15:09] VITALS: TEMP 98.2
[2023-12-28 15:14] VITALS: BP 154/88; O2SAT 98
--- NOTE | 2023-12-29 13:47 | EKG ---
Test Date: 2023-12-28 Test Time: 11:14:18 Radiator Repairer: HB MEASUREMENT RESULTS: Intervals: Rate: 71 NC: 124 QRSD: 88 QT: 396 QTc: 430 [place]: P: 26 NC: 124 QRS: -22 T: 40 INTERPRETIVE STATEMENTS: Normal sinus rhythm Normal ECG Compared to ECG 12/27/2022 21:11:24 No significant changes Electronically Signed On 12-29-23 13:44:57 CDT by Macario Meehan
== END 2023-12-28 14:39 | disposition home or self-care (01) ==
LOC: ER 10:59
DX: R07.9 Chest pain, unspecified (principal); R06.02 Shortness of breath; Z86.73 Personal history of transient ischemic attack (TIA), and cerebral infarction without residual deficits
CPT/HCPCS: 93005; 85025; 80048; 36415; 85610; 80076; 84484 ×2; 83880; 71275; 71045; 93971; 99284; Q9967

== ENCOUNTER 2024-08-10 18:18 | Inpatient (IN) | payer BC ==
[2024-08-10 19:36] LABS: Absolute Basophils 0.1 K/uL (0-0.5); Absolute Eosinophils 0.8 K/uL (0-0.5); Absolute Lymphocytes (CBC) 2.5 K/uL (0.7-4.9); Absolute Monocytes 1.1 K/uL (0.1-1.3); Absolute Neutrophil 5.4 K/uL (1.8-8.0); Eosinophils % 8.4 % (0-4.4); Hematocrit 40.2 % (36.0-45.0); Hemoglobin 13.9 g/dL (12.0-15.0); Lymphocytes % 25.1 % (15.3-44.8); MCH 29.2 pg (27.0-35.0); MCHC 34.6 g/dL (32.0-36.0); MCV 84.5 fL (80-100); MPV 9.1 fL (7.6-11.3); Monocytes % 10.8 % (3.3-12.3); Neutrophils % 54.7 % (41.7-73.7); Nucleated Red Blood Cells % 0.1 % (0-0); Platelets 238 thou/uL (152-406); RBC Red Blood Cell Count 4.76 M/uL (3.86-4.86); Red Cell Distribution Width 13.2 % (12.1-15.2)
[2024-08-10 19:55] LABS: ALT/SGPT 31 U/L (13-56); AST/SGOT 25 U/L (15-37); Albumin 3.4 g/dL (3.4-5.0); Albumin/Globulin Ratio 0.9 (1.1-1.8); Alkaline Phosphatase 136 U/L (45-117); Anion Gap 7.7 mEq/L (5.0-15.0); BUN Blood Urea Nitrogen 11 mg/dL (7-18); Bicarbonate 28 mEq/L (21-32); Bilirubin Total 0.5 mg/dL (0.2-1.0); Globulin 3.8 g/dL (2.3-3.5); Glomerular Filtration Rate 73 ml/min (=/>90); Glucose Level 111 mg/dL (74-106); NT PRO-BNP 73 pg/mL (<125); Potassium 3.7 mEq/L (3.5-5.1); Protein, Total 7.2 g/dL (6.4-8.2); Sodium Level 138 mEq/L (136-145); Troponin High Sensitivity 5.8 pg/mL (<58.9)
[2024-08-10 20:02] LABS: Bilirubin Direct < 0.2 mg/dL (0-0.2); Bilirubin Indirect, Calculated 0.3 mg/dL (0.2-0.8)
[2024-08-10 20:03] LABS: PT Prothrombin Time 11.2 SECONDS (10-13.0); Protime INR 0.98
--- NOTE | 2024-08-10 20:11 | RAD REPORT ---
EXAMINATION: ONE VIEW CHEST XR CLINICAL INDICATION: Female, 63 years old.,DYSPNEA TECHNIQUE: Frontal chest projection is submitted. Examination is limited by patient positioning and t echnique. COMPARISON: 12/28/2023 FINDINGS: The lungs are grossly clear although suboptimal inspiratory effort somewhat limits evaluation. No pn eumothorax or sizable effusion. The heart is normal in size. Mediastinal contours are unremarkable. IMPRESSION: No acute intrathoracic abnormalities.
[2024-08-10] MEDS ORDERED: ASPIRIN 81 MG CHEWABLE TABLET ONE (20:31)
--- NOTE | 2024-08-10 20:31 | EDPHYS ---
Physician Documentation [facility] Name: Marisa Baker Age: 63 yrs Sex: Female : 1960 Arrival Date: 08/10/2024 Time: 18:18 Bed 14 Private MD: ED Physician Andrew Marquez HPI: 08/10 19:30 This 63 yrs old Female presents to ER via Ambulatory with complaints of ec2 Shortness Of Breath, Neck Pain, <24hrs Old, Back Pain, Chest Tightness, Headache, Nausea, feeling full. 19:30 Patient arrives today for chest tightness as well as shortness of breath. Patient ec2 reports 1 week of symptoms. Reports dyspnea on exertion. Patient reports no history of cardiac disease, does report a history of previous TIA. Reports some chest tightness as well as some trace lower extremity edema. No history of heart failure.. 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 - Infectious Disease History:: Denies. - Social history:: Smoking status: Patient/guardian denies using tobacco, but has a distant history of tobacco abuse. ROS: 19:30 Constitutional: as per hpi ec2 Exam: 19:30 Constitutional: GEN: NAD Head: atraumatic Eyes: EOMI Ears: External ears are ec2 normal. CV: regular rate, trace lower extremity edema noted LUNGS: no respiratory distress ABD: non-distended SKIN: no evidence of rashes MSK: no evidence of trauma Vital Signs: 19:09 BP 156 / 97; Pulse 90; Resp 18; Pulse Ox 94% on R/A; rg5 20:10 BP 153 / 94; Pulse 84; Resp 17; Pulse Ox 94% on R/A; Pain 7/10; rg5 21:20 BP 167 / 103; Pulse 79; Resp 18; Pulse Ox 95% on R/A; Pain 8/10; rg5 21:30 BP 143 / 95; Pulse 85; Resp 19; Pulse Ox 95% on R/A; Pain 5/10; rg5 22:30 BP 138 / 81; Pulse 75; Resp 17; Pulse Ox 95% on R/A; Pain 4/10; rg5 23:27 BP 115 / 77; Pulse 77; Resp 18; Pulse Ox 94% on 2 lpm NC; rg5 20:10 Pain Scale: Adult rg5 21:20 Pain Scale: Adult rg5 21:30 Pain Scale: Adult rg5 22:30 Pain Scale: Adult rg5 MDM: 19:00 Medical Screening Exam initiated ec2 19:30 Data reviewed: vital signs, nurses notes. ED course: Patient arrives today for ec2 evaluation of dyspnea on exertion. Examination yields nontoxic hemodynamically stable with reassuring cardiopulmonary examination. Will obtain lab work, chest x-ray. DDx includes processes such as ACS, PE, volume overload. 19:33 ED course: EKG independently reviewed and interpreted by me, shows normal sinus rhythm, ec2 rate of 89, no acute ST segment elevations, intervals are nonactionable.. 20:30 ED course: D-dimer within normal ranges. On reassessment patient is well-appearing no ec2 acute distress. Will admit the patient for cardiac workup given the chest pain and dyspnea on exertion. Discussed with hospitalist, pending admission.. 08/10 19:00 Order name: Basic Metabolic Panel; Complete Time: 20:09 ec2 08/10 19:00 Order name: CBC with Diff; Complete Time: 20:09 ec2 08/10 19:00 Order name: NT PRO-BNP; Complete Time: 20:09 ec2 08/10 19:00 Order name: PT-INR; Complete Time: 20:09 ec2 08/10 19:00 Order name: Troponin HS; Complete Time: 20:09 ec2 08/10 19:00 Order name: LFT's; Complete Time: 20:09 ec2 08/10 19:32 Order name: D-Dimer; Complete Time: 20:30 ec2 08/10 20:54 Order name: Basic Metabolic Panel EDSD 08/10 20:54 Order name: Basic Metabolic Panel; Complete Time: 11:17 EDMS 08/10 20:54 Order name: CBC with Automated Diff EDSD 08/10 20:54 Order name: CBC with Automated Diff; Complete Time: 11:17 EDMS 08/10 20:54 Order name: Lipid Profile EDSD 08/10 20:54 Order name: Lipid Profile [facility] 08/10 20:54 Order name: Troponin High Sensitivity [facility] 08/10 20:54 Order name: Troponin High Sensitivity [facility] 08/10 20:54 Order name: Troponin High Sensitivity; Complete Time: 11:17 [facility] 08/10 20:54 Order name: Troponin High Sensitivity [facility] 08/10 20:54 Order name: Troponin High Sensitivity [facility] 08/11 06:39 Order name: Lipid Profile; Complete Time: 11: [facility] 08/11 07:52 Order name: Hemoglobin A1c; Complete Time: 11: [facility] 08/11 08:54 Order name: CBC Smear Scan; Complete Time: 11:17 [facility] 08/10 19:00 Order name: XRAY Chest (1 view); Complete Time: 20:14 [facility] 08/10 20:54 Order name: Echo with Doppler [facility] 08/10 21:22 Order name: CT Aorta for Dissection 08/10 23:19 Order name: CT; Complete Time: 11: [facility] 08/10 19:00 Order name: EKG; Complete Time: 19:00 [facility] 08/10 19:00 Order name: Cardiac monitoring; Complete Time: 19:01 2 08/10 19:00 Order name: EKG - Nurse/Tech; Complete Time: 19:01 2 08/10 19:00 Order name: IV Saline Lock; Complete Time: 19:42 [facility] 08/10 19:00 Order name: Labs collected and sent; Complete Time: 19:42 2 08/10 19:00 Order name: O2 Per Protocol; Complete Time: 19:01 [facility] 08/10 19:00 Order name: O2 Sat Monitoring; Complete Time: 19: [facility] 08/10 19:43 Order name: Labs - recollect needed; Complete Time: 20:27 kmf Administered Medications: 20:00 Drug: morphine IVP or IV 4 mg IVP once over 4 mins Route: IVP; Infused Over: 4 mins; rg5 Site: left hand; 21:10 Follow up: Response: No adverse reaction; Pain is decreased rg5 20:00 Drug: Aspirin PO Chewable Tablet 324 mg PO once; 81 mg tablets x 4 Route: PO; rg5 21:10 Follow up: Response: No adverse reaction rg5 21:10 Drug: Famotidine IVP 20 mg IVP once; dilute with 10 mL 0.9% NaCl; give over 2 minutes rg5 Route: IVP; Site: left wrist; 21:37 Follow up: Response: No adverse reaction rg5 21:38 Drug: Nitroglycerin Sublingual 0.4 mg Sublingual once; every five minute if needed x3 rg5 Route: Sublingual; 21:45 Drug: Nitroglycerin Sublingual 0.4 mg Sublingual once; every five minute if needed x3 rg5 Route: Sublingual; 22:35 Drug: Nitroglycerin Sublingual 0.4 mg Sublingual once; every five minute if needed x3 rg5 Route: Sublingual; 23:24 Follow up: Response: No adverse reaction rg5 08/11 02:06 Drug: GI Cocktail without - (Maalox PO 30 ml, Lidocaine Mucous Membrane 2 % 15 rg5 ml) PO once Route: PO; 05:08 Follow up: Response: No adverse reaction; Pain is decreased rg5 02:06 Drug: Ondansetron IVP 4 mg IVP once; over 2 minutes Route: IVP; Site: left hand; rg5 05:08 Follow up: Response: No adverse reaction rg5 Disposition Summary: 08/10/24 20:30 Hospitalization Ordered Notes: Hospitalization Status: Inpatient Admission ec2 Provider: Prince Tania ec2 Condition: Stable ec2 Problem: new ec2 Symptoms: are unchanged ec2 Bed/Room Type: Standard ec2 Location: [facility] ER HOLD(08/10/24 23:47) Room Assignment: ERHOLD-(08/10/24 23:47) Diagnosis - Chest pain, unspecified ec2 - Dyspnea, unspecified ec2 Forms: - Medication Reconciliation Form ec2 - SBAR form ec2 - Leadership Thank You Letter ec2 Signatures: Dispatcher [employer] EDKristin Foster RN RN Andrew Jiménez MD MD sp4 Fidelina Cox RN RN me1 Riley Robbins MD MD ec2 Ana Leigh [facility] Joe Morris RN RN rg5 Corrections: (The following items were deleted from the chart) 08/10 19:33 19:33 D-DIMER+COAG.LAB.BRZ [facility]. [facility] 23:47 20:30 Telemetry/MedSurg (Inpatient) ec2 kl 23:47 20:30 ec2 kl
--- NOTE | 2024-08-10 20:31 | ER ---
Nurse's Notes [facility] Name: Marisa Baker Age: 63 yrs Sex: Female : 1960 Arrival Date: 08/10/2024 Time: 18:18 Bed 14 Private MD: Diagnosis: Chest pain, unspecified;Dyspnea, unspecified Presentation: 08/10 18:47 Chief complaint: Patient states: reports sob that started last in trisha and me1 has continued to worsen. Patient is sob with exertion and reports midsternal chest pain that is heavy in nature. Also reports pain to bilateral upper neck and bilateral shoulders. She is unsure if pain starts in her chest and radiates to shoulder and neck. Coronavirus screen: Vaccine status: Patient reports being unvaccinated. Ebola Screen: No symptoms or risks identified at this time. Initial Sepsis Screen: Does the patient meet any 2 criteria? No. Patient's initial sepsis screen is negative. Does the patient have a suspected source of infection? No. Patient's initial sepsis screen is negative. Risk Assessment: Do you want to hurt yourself or someone else? Patient reports no desire to harm self or others. Onset of symptoms was August 05, 2024. 18:47 Method Of Arrival: Ambulatory me1 18:47 Acuity: YESSI 3 me1 Triage Assessment: 19:10 General: Appears uncomfortable. Respiratory: Respiratory: Reports shortness of breath rg5 Onset: The symptoms/episode began/occurred this morning. 19:10 General: Behavior is calm, cooperative, appropriate for age. 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 - Infectious Disease History:: Denies. - Social history:: Smoking status: Patient/guardian denies using tobacco, but has a distant history of tobacco abuse. Screenin:05 [facility] ED Fall Risk Assessment (Adult) History of falling in the last 3 months, rg5 including since admission No falls in past 3 months (0 pts) Confusion or Disorientation No (0 pts) Intoxicated or Sedated No (0 pts) Impaired Gait No (0 pts) Mobility Assist Device Used No (0 pt) Altered Elimination No (0 pt) Score/Fall Risk Level 0 - 2 = Low Risk Oriented to surroundings, Maintained a safe environment, Provided non-skid footwear. Abuse screen: Denies threats or abuse. Nutritional screening: No deficits noted. Tuberculosis screening: No symptoms or risk factors identified. Assessment: 19:05 General: Appears in no apparent distress. comfortable, Behavior is calm, cooperative, rg5 appropriate for age. 19:05 Pain: Complains of pain in back and chest. Neuro: Level of Consciousness is awake, rg5 alert, obeys commands, Oriented to person, place, time, situation. Cardiovascular: Reports chest pain, shortness of breath, Rhythm is sinus rhythm. Respiratory: Airway is patent Trachea midline Respiratory effort is even, unlabored, Respiratory pattern is symmetrical, agonal Breath sounds are clear. GI: Abdomen is round non-distended, Abd is soft and non tender. : No signs and/or symptoms were reported regarding the genitourinary system. EENT: No deficits noted. Derm: Skin is intact, Skin is dry, Skin is normal, Skin temperature is warm. Musculoskeletal: Circulation, motion, and sensation intact. Range of motion: intact in all extremities. 21:15 Reassessment: No changes from previously documented assessment. Patient and/or family rg5 updated on plan of care and expected duration. Pain level reassessed. Patient is alert, oriented x 3, equal unlabored respirations, skin warm/dry/pink. 22:25 Reassessment: Patient is alert, oriented x 3, equal unlabored respirations, skin rg5 warm/dry/pink. Patient is alert/active/playful, equal unlabored respirations, skin warm/dry/pink. Patient states symptoms have improved. 23:35 Reassessment: Patient is alert, oriented x 3, equal unlabored respirations, skin rg5 warm/dry/pink. Patient is alert/active/playful, equal unlabored respirations, skin warm/dry/pink. Patient states feeling better. Patient states symptoms have improved. Vital Signs: 19:09 BP 156 / 97; Pulse 90; Resp 18; Pulse Ox 94% on R/A; rg5 20:10 BP 153 / 94; Pulse 84; Resp 17; Pulse Ox 94% on R/A; Pain 7/10; rg5 21:20 BP 167 / 103; Pulse 79; Resp 18; Pulse Ox 95% on R/A; Pain 8/10; rg5 21:30 BP 143 / 95; Pulse 85; Resp 19; Pulse Ox 95% on R/A; Pain 5/10; rg5 22:30 BP 138 / 81; Pulse 75; Resp 17; Pulse Ox 95% on R/A; Pain 4/10; rg5 23:27 BP 115 / 77; Pulse 77; Resp 18; Pulse Ox 94% on 2 lpm NC; rg5 20:10 Pain Scale: Adult rg5 21:20 Pain Scale: Adult rg5 21:30 Pain Scale: Adult rg5 22:30 Pain Scale: Adult rg5 ED Course: 18:20 Patient arrived in ED. im 18:25 Riley Robbins MD is Attending Physician. ec2 18:53 Triage completed. me1 18:53 Arm band placed on Patient placed in an exam room. me1 19:05 Patient has correct armband on for positive identification. Door closed. Noise rg5 minimized. Warm blanket given. 19:05 No provider procedures requiring assistance completed. Inserted saline lock: 20 gauge rg5 in left wrist, using aseptic technique. Blood collected. Flushed with 10 mL NS. Patient maintains SpO2 saturation greater than 95% on room air. 19:09 Joe Morris RN is Primary Nurse. rg5 19:10 EKG completed in triage. Results shown to MD. rg5 19:42 XRAY Chest (1 view) Sent. rg5 19:50 XRAY Chest (1 view) In Process Unspecified. EDMS 20:30 Prince Marin MD is Hospitalizing Provider. ec2 21:03 Attending Physician role handed off by Riley Robbins MD sp4 21:03 Andrew Marquez MD is Attending Physician. sp4 21:16 Patient admitted, IV remains in place. intact, No redness/swelling at site. rg5 21:44 Provided Education on: needs for admit. rg5 08/11 08:01 Primary Nurse role handed off by Joe Morris RN bd 10:54 Marium Duron RN is Primary Nurse. ap3 Administered Medications: 08/10 20:00 Drug: morphine IVP or IV 4 mg IVP once over 4 mins Route: IVP; Infused Over: 4 mins; rg5 Site: left hand; 21:10 Follow up: Response: No adverse reaction; Pain is decreased rg5 20:00 Drug: Aspirin PO Chewable Tablet 324 mg PO once; 81 mg tablets x 4 Route: PO; rg5 21:10 Follow up: Response: No adverse reaction rg5 21:10 Drug: Famotidine IVP 20 mg IVP once; dilute with 10 mL 0.9% NaCl; give over 2 minutes rg5 Route: IVP; Site: left wrist; 21:37 Follow up: Response: No adverse reaction rg5 21:38 Drug: Nitroglycerin Sublingual 0.4 mg Sublingual once; every five minute if needed x3 rg5 Route: Sublingual; 21:45 Drug: Nitroglycerin Sublingual 0.4 mg Sublingual once; every five minute if needed x3 rg5 Route: Sublingual; 22:35 Drug: Nitroglycerin Sublingual 0.4 mg Sublingual once; every five minute if needed x3 rg5 Route: Sublingual; 23:24 Follow up: Response: No adverse reaction rg5 08/11 02:06 Drug: GI Cocktail without - (Maalox PO 30 ml, Lidocaine Mucous Membrane 2 % 15 rg5 ml) PO once Route: PO; 05:08 Follow up: Response: No adverse reaction; Pain is decreased rg5 02:06 Drug: Ondansetron IVP 4 mg IVP once; over 2 minutes Route: IVP; Site: left hand; rg5 05:08 Follow up: Response: No adverse reaction rg5 Medication: 08/10 19:05 VIS not applicable for this client. rg5 Outcome: 20:30 Decision to Hospitalize by Provider. ec2 21:15 Admitted to ER Hold. Please see [facility] for further documentation. rg5 21:15 Condition: stable 21:15 Instructed on the need for admit, 08/11 11:01 Patient left the ED. ap3 Signatures: Dispatcher [employer] EDKamini Askew Amanda RN RN ap3 Andrew Marquez MD MD sp4 Georgia Davis Michelle, RN RN me1 Riley Robbins MD MD ec2 Morris, Joe, RN RN rg5
[2024-08-10] MEDS ORDERED: MORPHINE 4 MG/ML SYR ONE (20:32)
[2024-08-10] MEDS ORDERED: FAMOTIDINE 20 MG/2 ML VIAL IV ONE (21:05)
[2024-08-10] MEDS ORDERED: NITROGLYCERIN 0.4 MG/TAB SL ONE (21:12)
--- NOTE | 2024-08-10 23:18 | RAD REPORT ---
EXAM: Angio Aorta For Dissection HISTORY: PAIN Bed Name: [id number] COMPARISON: 06/23/2018 TECHNIQUE: Multiple contiguous axial images were obtained a CTA of the chest and abdomen with contras t per aortic dissection protocol. Sagittal and coronal 3-D MIP reformats were performed. One or more of the following dose reduction techniques were used: Automated exposure control, adjustment of the mA and kV according to patient size, and iterative reconstruction. Unless otherwise specified, incidental findings do not require dedicated imaging follow-up. FINDINGS: PULMONARY ARTERIES: Normal in caliber without filling defects to suggest pulmonary emboli. MEDIASTINUM: No hilar or mediastinal lymphadenopathy. LUNGS: No focal infiltrates or masses. At least moderate apical predominant centrilobular emphysemato us changes. PLEURAL SPACE: No pleural effusion or pneumothorax. LIVER: Unremarkable. KIDNEYS: Unremarkable. SPLEEN: Unremarkable. PANCREAS: Unremarkable. BOWEL: Unremarkable apart from mild distal colonic diverticulosis without evidence of acute diverticu litis.. RETROPERITONEUM: No lymphadenopathy BONES: Degenerative changes in the spine. Transitional anatomy with sacralization of L5. Breast implants in place. ASCENDING THORACIC AORTA: Normal caliber without evidence of dissection or aneurysmal dilatation. DESCENDING THORACIC AORTA: Normal caliber without evidence of dissection or aneurysmal dilatation. ABDOMINAL AORTA: Normal caliber without evidence of dissection or aneurysmal dilatation. Mild to mode rate atherosclerotic calcifications. CELIAC TRUNK: Patent, proximal bifurcating pattern of the celiac axis. SMA: Patent, with variant anatomy, with the right hepatic artery arising from the proximal SMA. SANDOR: Patent RENAL ARTERIES: Bilateral single renal arteries without significant atherosclerotic disease IMPRESSION: No evidence of thoracic or abdominal aortic aneurysm or dissection. Incidental findings as above.
[2024-08-10] MEDS ORDERED: SODIUM CHLORIDE 0.9% 10ML INJ IV PRN (23:30)
[2024-08-10] MEDS: PANTOPRAZOLE 40 MG INJ IVP SCH (23:30)
--- NOTE | 2024-08-10 23:32 | P.HP ---
Certification for Inpatient Patient admitted to: Observation With expected LOS: <2 Midnights Practitioner: I am a practitioner with admitting privileges, knowledge of patient current condition, hospital course, and medical plan of care. Services: Services provided to patient in accordance with Admission requirements found in Title 42 Section 412.3 of the Code of Federal Regulations Patient History Date of Service: 08/10/24 Reason for admission: Chest pain History of Present Illness: Patient is a 63 year old female with a PMH of HTN and tobacco smoking, quit 15 years ago. She presents to the ER complaining of a substernal chest. The chest pain is nonexertional, non-radiating. During my evaluation, patient was still complaining of chest pain. She has a normal EKG, chest ray and troponin. SBP of 197 mmHG. She is tearful due to pain. Currently getting a CT dissection protocol. Allergies adhesive tape Allergy (Verified 12/28/22 00:41) skin blisters codeine Allergy (Verified 12/28/22 00:41) Itching gabapentin Allergy (Verified 12/28/22 00:41) see com diphenhydramine HCl [From Benadryl Allergy] Adverse Reaction (Intermediate, Verified 12/28/22 00:41) agitation Home Medications: Promethazine HCl 12.5 mg PO Q6HP PRN 5 Days #20 12/28/22 Promethazine Tab [Phenergan*] 12.5 mg PO Q6HP PRN 5 Days #20 tab 12/28/22 - Past Medical/Surgical History Diabetic: No -: Hypertension -: Hyperlipidemia -: hypotension -: hysterectomy -: x 3 -: deanna -: hemrrhoidectomy -: tonsil & adenoid removal -: eyelids lifted -: bunionectomy -: R shoulder sx Psychosocial/ Personal History: Patient lives at home with her - Family History Father Notes: alcoholic Mother -: Hypertension, Cancer Sister -: Hypertension, Seizures Notes: Yisel Salinas HTN Brother -: Hypertension - Social History Alcohol use: No CD- Drugs: No Caffeine use: Yes Physical Examination - Physical Exam General: Moderate distress HEENT: Atraumatic, Normocephalic Neck: Supple Respiratory: Clear to auscultation bilaterally, Normal air movement Cardiovascular: No edema, Normal pulses, Regular rate/rhythm, Normal S1 S2 Neurological: Normal speech - Studies Laboratory Data (last 24 hrs) 08/10/24 08/10/24 08/10/24 19:50 19:25 19:25 WBC 9.90 Hgb 13.9 Hct 40.2 Plt Count 238 PT 11.2 INR 0.98 Sodium 138 Potassium 3.7 BUN 11 Creatinine 0.89 Glucose 111 H Total Bilirubin 0.5 AST 25 ALT 31 Alkaline Phosphatase 136 H Assessment and Plan - Problems (Diagnosis) (1) Chest pain, rule out acute myocardial infarction Onset Date: 02/27/18 Current Visit: No Status: Acute (2) Hypertension Onset Date: 04/24/15 Current Visit: No Status: Acute (3) Obesity (BMI 30.0-34.9) Current Visit: No Status: Acute (4) History of CVA (cerebrovascular accident) Current Visit: No Status: Chronic - Plan Assessment Patient with a PMH of HTN and tobacco smoking being admitted for ACS rule out after she presented with substeranl chest pain. She is hypertensive with BP of 197/112 mmHg. patient responded to nitroglycerin as needed. Chest pain has improved. CT dissection was normal. Chest pain, ACS rule out Accelerated HTN History of tobacco smoking PLAN: Will admit under observation with telemetry Trend troponin Will obtain TTE, Lipid panel and A1c BP control A trial of PPI Cardiology consult Resume rest of home medications upon reconciliation - Advance Directives Does patient have a Living Will: No Does patient have a Durable POA for Healthcare: No
[2024-08-11] MEDS ORDERED: PANTOPRAZOLE 40 MG INJ ONE ×2 (01:21→08:10)
[2024-08-11] MEDS: MORPHINE 2 MG/ML SYR IV ONE (01:52)
[2024-08-11] MEDS ORDERED: ONDANSETRON 4 MG/2 ML VIAL ONE (01:58)
[2024-08-11] MEDS ORDERED: MORPHINE 2 MG/ML SYR ONE (01:58)
[2024-08-11] MEDS ORDERED: MAGNES/ALUMIN/SIMET 30ML UCUP ONE (01:59)
[2024-08-11] MEDS ORDERED: LIDOCAINE VISCOUS 2% 10ML ORAL SOLN ONE (01:59)
[2024-08-11 05:13] VITALS: BMI 23.5
[2024-08-11 06:25] LABS: Absolute Basophils 0.1 K/uL (0-0.5); Absolute Eosinophils 1.1 K/uL (0-0.5); Absolute Monocytes 0.7 K/uL (0.1-1.3); Absolute Neutrophil 2.8 K/uL (1.8-8.0); Basophils % 1.1 % (0-1.3); Eosinophils % 16.3 % (0-4.4); Hematocrit 39.6 % (36.0-45.0); Hemoglobin 13.4 g/dL (12.0-15.0); MCH 29.3 pg (27.0-35.0); MCHC 33.9 g/dL (32.0-36.0); MCV 86.4 fL (80-100); MPV 8.9 fL (7.6-11.3); Monocytes % 10.6 % (3.3-12.3); Nucleated Red Blood Cells % 0.1 % (0-0); Platelets 239 thou/uL (152-406); RBC Red Blood Cell Count 4.58 M/uL (3.86-4.86); Red Cell Distribution Width 13.4 % (12.1-15.2)
[2024-08-11 06:39] LABS: Anion Gap 7.6 mEq/L (5.0-15.0); Potassium 3.6 mEq/L (3.5-5.1); Troponin High Sensitivity 3.9 pg/mL (<58.9)
[2024-08-11] MEDS ORDERED: ENOXAPARIN 40 MG/0.4 ML SQ ONE (08:10)
[2024-08-11] MEDS ORDERED: ASPIRIN EC 81 MG TAB PO ONE (08:10)
[2024-08-11] MEDS: ASPIRIN EC 81 MG TAB PO SCH (08:23)
[2024-08-11] MEDS: ENOXAPARIN 40 MG/0.4 ML SQ SCH (08:23)
[2024-08-11 08:53] LABS: Blood Morphology Comment NOT SEEN (NOT SEEN); Platelet Estimate ADEQ; White Blood Cell Scan OK (OK)
[2024-08-11] MEDS ORDERED: HEPA 1000U/500MLS 2,000 UNIT/1,000 ML BAG IV ONE (10:25)
[2024-08-11] MEDS ORDERED: LIDOCAINE 1% 20 ML MDV ONE (10:25)
[2024-08-11] MEDS ORDERED: HEPARIN 10,000 UNIT/10 ML VIAL IV ONE (10:25)
[2024-08-11] MEDS ORDERED: MIDAZOLAM HCL 2 MG/2 ML INJ ONE (10:26)
[2024-08-11] MEDS ORDERED: HEPARIN 5000 UNIT/ML 1 ML VIAL ONE (10:26)
[2024-08-11] MEDS ORDERED: CLOPIDOGREL 75 MG TABLET ONE (10:26)
[2024-08-11] MEDS ORDERED: ATROPINE SULF 1 MG/10 ML SYR IV ONE (10:26)
[2024-08-11] MEDS ORDERED: TICAGRELOR 90 MG TABLET PO ONE (10:26)
[2024-08-11] MEDS ORDERED: ASPIRIN 325 MG TAB ONE (10:26)
[2024-08-11] MEDS ORDERED: FENTANYL CITR 100 MCG/2 ML ONE (10:27)
--- NOTE | 2024-08-11 10:41 | P.CNS ---
Date of Consult: 08/11/24 Chief Complaint: Chest pain History of Present Illness: Patient with no significant PMH except for carotid A disease, presented with chest pressure sensation that started yesterday, associated with SOB, BRAXTON for the last week, denies any other cardiac symptoms. Allergies adhesive tape Allergy (Verified 12/28/22 00:41) skin blisters codeine Allergy (Verified 12/28/22 00:41) Itching gabapentin Allergy (Verified 12/28/22 00:41) see com diphenhydramine HCl [From Benadryl Allergy] Adverse Reaction (Intermediate, Verified 12/28/22 00:41) agitation Home medications list reviewed: Yes Home Medications: RX: Promethazine HCl 12.5 mg PO Q6HP PRN 5 Days #20 12/28/22 RX: Promethazine Tab [Phenergan*] 12.5 mg PO Q6HP PRN 5 Days #20 tab 12/28/22 - Past Medical/Surgical History Diabetic: No -: Hypertension -: Hyperlipidemia -: hypotension -: hysterectomy -: x 3 -: deanna -: hemrrhoidectomy -: tonsil & adenoid removal -: eyelids lifted -: bunionectomy -: R shoulder sx Psychosocial/ Personal History: Patient lives at home with her - Family History Father Notes: alcoholic Mother Medical History: Hypertension, Cancer Sister Medical History: Hypertension, Seizures Notes: Yisel Salinas HTN Brother Medical History: Hypertension - Social History Smoking Status: Former smoker Alcohol use: No CD- Drugs: No Caffeine use: Yes Review of Systems 10-point ROS is otherwise unremarkable Physical Examination Temp Pulse Resp BP Pulse Ox 97.9 F 68 18 113/81 97 08/11/24 07:45 08/11/24 07:45 08/11/24 07:45 08/11/24 07:45 08/11/24 07:45 General: Alert, In no apparent distress HEENT: Atraumatic, PERRLA, Mucous membr. moist/pink, EOMI, Sclerae nonicteric Neck: Supple, 2+ carotid pulse no bruit, No LAD, Without JVD or thyroid abnormality Respiratory: Clear to auscultation bilaterally, Normal air movement Cardiovascular: Regular rate/rhythm, Normal S1 S2 Gastrointestinal: Normal bowel sounds, No tenderness Musculoskeletal: No tenderness Integumentary: No rashes Neurological: Normal gait, Normal speech, Normal tone, Normal affect Lymphatics: No axilla or inguinal lymphadenopathy Laboratory Data (last 24 hrs) 08/10/24 08/10/24 08/10/24 19:50 19:25 19:25 WBC 9.90 Hgb 13.9 Hct 40.2 Plt Count 238 PT 11.2 INR 0.98 Sodium 138 Potassium 3.7 BUN 11 Creatinine 0.89 Glucose 111 H Total Bilirubin 0.5 AST 25 ALT 31 Alkaline Phosphatase 136 H - Problems (1) Chest pain Onset Date: 04/24/15 Current Visit: No Status: Acute Plan: concern for angina will do coronary angiogram ASA 81 mg daily Crestor 20 mg daily Qualifiers: Chest pain type: chest pain on breathing Qualified Code(s): R07.1 - Chest pain on breathing; R07.81 - Pleurodynia (2) Hypertension Onset Date: 04/24/15 Current Visit: No Status: Acute Plan: BP is normal off medications, continue to monitor (3) History of CVA (cerebrovascular accident) Current Visit: No Status: Chronic Plan: with history of carotid A disease that has been monitored in office continue ASA and statins
[2024-08-11] MEDS ORDERED: NA CHLORIDE 0.9% 500 ML ONE (10:51)
--- NOTE | 2024-08-11 15:51 | P.PN ---
Date of Service: 08/11/24 Subjective Seen in PACU s/p coronary angiogram reports chest pain that continues No intervention per cardiology Will continue to monitor ROS 10 point ROS as noted above, otherwise negative Physical Exam General: NAD, alert and oriented x4 HEENT: Atraumatic, Normocephalic Neck: Supple Respiratory: Clear BBS, Normal air movement, on RA Cardiovascular: No edema, Normal pulses, RRR, Normal S1 S2 Neurological: Normal speech Vitals Reviewed Problem list Chest pain rule out Hypertension History CVA Assessment and Plan Chest pain rule out - EKG: No obvious ST segment changes - Trend troponin - Ordered transthoracic echocardiogram - chest x-ray "The lungs are grossly clear although suboptimal inspiratory e ffort somewhat limits evaluation. No pneumothorax or sizable effusion. The heart is normal in size. Mediastinal contours are unremarkable." - CT dissection reports "No evidence of thoracic or abdominal aortic aneurysm or dissection. " - Consult Cardiology - immediate coronary angiogram, with no interventions - S/P aspirin 324 mg PO x 1 in ED - Start daily baby aspirin and statin - Symptom control with PRN acetaminophen, nitroglycerin, morphine - continuous telemetry - TSH/FreeT4, A1C, lipid panel pending Hypertension History CVA -Continue home medications as appropriate DVT ppx Lovenox Full code LOS 24-hour OBS Time Spent Managing Pts Care (In Minutes): 35
[2024-08-11] MEDS: DULOXETINE 20 MG CAP PO SCH (16:08)
[2024-08-11] MEDS: PREGABALIN 25 MG CAPSULE PO SCH (16:08)
[2024-08-11] MEDS: ATORVASTATIN 40 MG TAB PO SCH (20:53)
[2024-08-11] MEDS: NITROGLYCERIN 0.4 MG/TAB SL PRN (20:55)
[2024-08-11] MEDS: LIDOCAINE VISCOUS 2% 10ML ORAL SOLN PO ONE (22:57)
[2024-08-11] MEDS: MAGNES/ALUMIN/SIMET 30ML UCUP PO ONE (22:57)
[2024-08-12 06:03] LABS: Absolute Basophils 0.1 K/uL (0-0.5); Absolute Eosinophils 0.9 K/uL (0-0.5); Absolute Monocytes 0.8 K/uL (0.1-1.3); Absolute Neutrophil 3.7 K/uL (1.8-8.0); Basophils % 0.7 % (0-1.3); Eosinophils % 12.1 % (0-4.4); Hematocrit 37.7 % (36.0-45.0); Lymphocytes % 27.4 % (15.3-44.8); MCH 29.6 pg (27.0-35.0); MCHC 34.5 g/dL (32.0-36.0); MCV 85.9 fL (80-100); MPV 9.2 fL (7.6-11.3); Monocytes % 10.2 % (3.3-12.3); Neutrophils % 49.6 % (41.7-73.7); Nucleated Red Blood Cells % 0.1 % (0-0); Platelets 197 thou/uL (152-406); RBC Red Blood Cell Count 4.39 M/uL (3.86-4.86); Red Cell Distribution Width 13.2 % (12.1-15.2)
[2024-08-12 06:10] LABS: Anion Gap 5.9 mEq/L (5.0-15.0); Potassium 3.9 mEq/L (3.5-5.1)
--- NOTE | 2024-08-12 08:41 | EKG ---
Test Date: 2024-08-10 Test Time: 18:47:37 [employer] Specialist: BASHIR MEASUREMENT RESULTS: Intervals: Rate: 89 MA: 140 QRSD: 82 QT: 382 QTc: 464 [place]: P: 71 MA: 140 QRS: -21 T: 42 INTERPRETIVE STATEMENTS: Normal sinus rhythm Normal ECG Compared to ECG 12/28/2023 11:14:18 No significant changes Electronically Signed On 08-12-24 08:36:51 CDT by Boaz Pollack
--- NOTE | 2024-08-12 08:53 | ECHO ---
HEIGHT: 5 ft 10 in WEIGHT: 164 lb 0 oz DATE OF STUDY: 08/11/[address]: Prince Hannah Marin MD 2-DIMENSIONAL: YES M.MODE: YES DOPPLER: YES COLOR FLOW: YES TDS: PORTABLE: YES DEFINITY: BUBBLE STUDY: DIAGNOSIS: CHEST PAIN CARDIAC HISTORY: CATHERIZATION: YES SURGERY: NO PROSTHETIC VALVE: NO PACEMAKER: NO MEASUREMENTS (cm) DIASTOLIC (NORMALS) SYSTOLIC (NORMALS) IVSd 1.2 (0.6-1.2) LA Diam 2.4 (1.9-4.0) LVEF 60-65% LVIDd 3.9 (3.5-5.7) LVIDs 2.7 (2.0-3.5) %FS 31% LVPWd 1.2 (0.6-1.2) Ao Diam 2.7 (2.0-3.7) 2 DIMENSIONAL ASSESSMENT: RIGHT ATRIUM: NORMAL LEFT ATRIUM: NORMAL RIGHT VENTRICLE: NORMAL LEFT VENTRICLE: NORMAL TRICUSPID VALVE: TRACE TRICUSPID REGURGITATION MITRAL VALVE: NORMAL PULMONIC VALVE: NORMAL AORTIC VALVE: NORMAL PERICARDIAL EFFUSION: NONE AORTIC ROOT: NORMAL LEFT VENTRICULAR WALL MOTION: NORMAL DOPPLER/COLOR FLOW: NORMAL COMMENTS: 1. NORMAL LEFT VENTRICULAR SYSTOLIC FUNCTION, EJECTION FRACTION 60-65%, NORMAL WAL MOTION 2. NORMAL DIASTOLIC FUNCTION TECHNOLOGIST: MERCY CROOK
--- NOTE | 2024-08-12 11:26 | P.PN ---
Subjective Date of Service: 08/12/24 Chief Complaint: Chest pain Subjective: No new changes, No C/O voiced, Tolerating diet, Ambulating, Improving Review of Systems 10-point ROS is otherwise unremarkable Physical Examination - Vital Signs Temperature: 98.1 F Blood Pressure: 132/69 Pulse: 65 Respirations: 20 Pulse Ox (%): 90 - Physical Exam General: Alert, In no apparent distress HEENT: Atraumatic, PERRLA, EOMI Neck: Supple, JVD not distended Respiratory: Clear to auscultation bilaterally, Normal air movement Cardiovascular: Regular rate/rhythm, Normal S1 S2 Gastrointestinal: Normal bowel sounds, No tenderness Musculoskeletal: No tenderness Integumentary: No rashes Neurological: Normal speech, Normal tone, Normal affect Lymphatics: No axilla or inguinal lymphadenopathy - Studies Laboratory Data (last 24 hrs) 08/12/24 08/12/24 05:20 05:20 WBC 7.40 Hgb 13.0 Hct 37.7 Plt Count 197 Sodium 141 Potassium 3.9 BUN 12 Creatinine 1.02 Glucose 103 Medications List Reviewed: Yes Assessment And Plan - Current Problems (Diagnosis) (1) Chest pain Onset Date: 04/24/15 Current Visit: No Status: Acute Plan: concern for angina, coronary angiogram done and shows mild to moderate mid RCA disease, patient had a negative stress test recently ASA 81 mg daily Crestor 20 mg daily Cardiology will sign off, please call with any questions. Qualifiers: Chest pain type: chest pain on breathing Qualified Code(s): R07.1 - Chest pain on breathing; R07.81 - Pleurodynia (2) Hypertension Onset Date: 04/24/15 Current Visit: No Status: Acute Plan: BP is normal off medications, continue to monitor (3) History of CVA (cerebrovascular accident) Current Visit: No Status: Chronic Plan: with history of carotid A disease that has been monitored in office continue ASA and statins
--- NOTE | 2024-08-12 17:17 | P.PN ---
Subjective Date of Service: 08/12/24 Chief Complaint: Chest pain Subjective: No new changes, C/O voiced (Continues to report shortness of breath with exertion) Review of Systems 10-point ROS is otherwise unremarkable Respiratory: SOB with Excertion Physical Examination - Vital Signs Temperature: 98.2 F Blood Pressure: 134/71 Pulse: 70 Respirations: 20 Pulse Ox (%): 93 - Physical Exam General: Alert, In no apparent distress HEENT: Atraumatic, PERRLA, EOMI Neck: Supple, JVD not distended Respiratory: Normal air movement, Diminished Cardiovascular: Regular rate/rhythm, Normal S1 S2 Gastrointestinal: Normal bowel sounds, No tenderness Musculoskeletal: No tenderness Integumentary: No rashes Neurological: Normal speech, Normal tone, Normal affect Lymphatics: No axilla or inguinal lymphadenopathy External genitalia: Deferred Rectal: Deferred - Studies Laboratory Data (last 24 hrs) 08/12/24 08/12/24 05:20 05:20 WBC 7.40 Hgb 13.0 Hct 37.7 Plt Count 197 Sodium 141 Potassium 3.9 BUN 12 Creatinine 1.02 Glucose 103 Medications List Reviewed: Yes Assessment And Plan - Plan Chest pain/Shortness of breath R/o Pulmonary embolism - EKG: No obvious ST segment changes - Troponin trended; 5.8/3.9 - Echocardiogram; EF 60-65% - Chest x-ray with: The lungs are grossly clear although suboptimal inspiratory effort somewhat limits evaluation. No pneumothorax or sizable effusion. The heart is normal in size. Mediastinal contours are unremarkable." - CT dissection completed: No evidence of thoracic or abdominal aortic aneurysm or dissection, negative for PE - Consult Cardiology - Immediate coronary angiogram; shows mild to moderate mid RCA disease - Continuous to monitor on telemetry - F/u with cardiology outpatient - Orthostatic vitals ordered - Continue to wean oxygen as tolerated Hypertension History CVA - Continue ASA/Statin - Monitor BP per unit protocol - Heart healthy diet Chronic pain -Continue home cymblata/Lyrica DVT Ppx: Lovenox Code Status: Full Code Discharge Plan: Home Plan to discharge in: 24 Hours - Code Status/Comfort Care Code Status Assessed: Yes (FULL CODE )
--- NOTE | 2024-08-12 21:20 | OP ---
Surgeon: Boaz Pollack Procedures Performed: 1. Left heart catheterization. 2. Selective angiogram. Indication For Procedures: Unstable angina. Complications: None. Estimated Blood Loss: Less than 50 cc. Access: Right radial, closed by TR band. Sedation Time: 20 minutes with 1 of Versed and 25 fentanyl. Description Of Procedure: After risks, benefits, and alternatives were explained to patient, patient agreed to proceed with procedure and signed informed consent. The patient was brought back to the c ath lab, prepped and draped in sterile fashion. Time-out was performed. Sedation was administered. Next, right radial access was obtained using ultrasound-guided micropuncture technique. Tarzan 4 cat heter was advanced over a J-wire to the LV cavity. LVEDP was obtained, pullback did not show any gra dient. Same catheter was used for selective angiogram of the left and right coronary systems. At th e end of procedure, catheter was removed over a J-wire. Sheath was removed. TR band was applied. H emostasis was achieved and patient was moved back to recovery in stable condition. Findings: 1. Left main: Normal. 2. LAD: Normal. 3. Left circ: Normal. 4. RCA with ostial 20% to 30% disease, then mid 40% to 50% disease with distal mild luminal regularit ies. 5. LVEDP 8 mmHg. Assessment: Mild to moderate mid right coronary artery disease. Plan: To continue medical management. JESSA/ELSY Voice ID: [id number] Report ID: [id number]
[2024-08-13 09:34] VITALS: O2SAT 96
--- NOTE | 2024-08-13 11:50 | P.DS ---
Admission Date: 08/12/24 Discharge Date: 08/13/24 Disposition: ROUTINE DISCHARGE Discharge Condition: FAIR Reason for Admission: Chest pain Consultations: cardiology Procedures: TTE cardiac cath Brief History of Present Illness: Patient is a 63 year old female with a PMH of HTN and tobacco smoking, quit 15 years ago. She presents to the ER complaining of a substernal chest. The chest pain is nonexertional, non-radiating. During my evaluation, patient was still complaining of chest pain. She has a normal EKG, chest ray and troponin. SBP of 197 mmHG. She is tearful due to pain. Currently getting a CT dissection protocol. Patient with a PMH of HTN and tobacco smoking being admitted for ACS rule out after she presented with substeranl chest pain. She is hypertensive with BP of 197/112 mmHg. patient responded to nitroglycerin as needed. Chest pain has improved. CT dissection was normal. Hospital Course: chest pain improved cardiology recommended medical management above tests completed discharged in stable condition ?why she became sob, recommend outpatient PFTs,allergy testing she will discuss with her pcp Vital Signs/Physical Exam: Temp Pulse Resp BP Pulse Ox 98.0 F 58 16 151/77 H 96 08/13/24 08:00 08/13/24 08:00 08/13/24 08:00 08/13/24 08:00 08/13/24 08:00 General: Alert, In no apparent distress HEENT: Atraumatic, Normocephalic Neck: Supple Respiratory: Clear to auscultation bilaterally, Normal air movement Cardiovascular: Normal pulses, Regular rate/rhythm Gastrointestinal: Soft and benign Musculoskeletal: No clubbing, No swelling Integumentary: No rashes Neurological: Normal gait, Normal speech Laboratory Data at Discharge: WBC 7.40 thou/uL (4.3-10.9) 08/12/24 05:20 Hgb 13.0 g/dL (12.0-15.0) 08/12/24 05:20 Hct 37.7 % (36.0-45.0) 08/12/24 05:20 Plt Count 197 thou/uL (152-406) 08/12/24 05:20 PT 11.2 SECONDS (10-13.0) 08/10/24 19:50 INR 0.98 08/10/24 19:50 Sodium 141 mEq/L (136-145) 08/12/24 05:20 Potassium 3.9 mEq/L (3.5-5.1) 08/12/24 05:20 BUN 12 mg/dL (7-18) 08/12/24 05:20 Creatinine 1.02 mg/dL (0.55-1.02) 08/12/24 05:20 Glucose 103 mg/dL (74-106) 08/12/24 05:20 Total Bilirubin 0.5 mg/dL (0.2-1.0) 08/10/24 19:25 AST 25 U/L (15-37) 08/10/24 19:25 ALT 31 U/L (13-56) 08/10/24 19:25 Alkaline Phosphatase 136 U/L (45-117) H 08/10/24 19:25 Triglycerides 168 mg/dL (<150) H 08/11/24 05:48 Cholesterol 208 mg/dL (<200) H 08/11/24 05:48 HDL Cholesterol 46 mg/dL (40-60) 08/11/24 05:48 Cholesterol/HDL Ratio 4.52 08/11/24 05:48 Home Medications: Duloxetine [Cymbalta *] 1 cap PO DAILY 08/11/24 Pregabalin 25 mg PO DAILY 08/11/24 Albuterol Inhaler [Ventolin Inhaler*] 2 puff IH Q6H PRN #1 inh 08/13/24 Aspirin [Aspirin EC 81 MG] 81 mg PO DAILY #30 tab 08/13/24 Atorvastatin Calcium 40 mg PO DAILY #30 08/13/24 New Medications: Aspirin [Aspirin EC 81 MG] 81 mg PO DAILY #30 tab Atorvastatin Calcium 40 mg PO DAILY #30 Albuterol Inhaler [Ventolin Inhaler*] 2 puff IH Q6H PRN #1 inh PRN Reason: Shortness Of Breath Physician Discharge Instructions: take medications as prescribed followup with pcp in one week Diet: Low sodium Activity: Ad carlos Followup: Nelson Jacobson MD [Primary Care Provider] -
[2024-08-13 12:24] VITALS: BP 172/92; TEMP 97.9
--- NOTE | 2024-08-16 11:36 | EKG ---
Test Date: 2024-08-11 Test Time: 19:47:03 Computer Systems Administrator: ARAM MEASUREMENT RESULTS: Intervals: Rate: 72 NE: 148 QRSD: 88 QT: 424 QTc: 464 [place]: P: 63 NE: 148 QRS: -4 T: 27 INTERPRETIVE STATEMENTS: Normal sinus rhythm Normal ECG Compared to ECG 08/10/2024 18:47:37 No significant changes Electronically Signed On 08-16-24 11:24:41 CDT by Boaz Pollack
== END 2024-08-13 13:10 | disposition home or self-care (01) | DRG 287 ==
LOC: ER 18:18 → ERHOLD 20:49 → 2ND 08-11 11:53 → OBSVTOIN 08-12 08:17
PROVIDERS: ADMIT Internal Medicine; ATTEND Internal Medicine
PROC: B2111ZZ Fluoroscopy of Multiple Coronary Arteries using Low Osmolar Contrast (ICD-10-PCS; principal; 2024-08-12)
PROC: 4A023N7 Measurement of Cardiac Sampling and Pressure, Left Heart, Percutaneous Approach (ICD-10-PCS; 2024-08-12)
DX: I25.110 Atherosclerotic heart disease of native coronary artery with unstable angina pectoris (principal); E78.5 Hyperlipidemia, unspecified; I10 Essential (primary) hypertension; G89.29 Other chronic pain; E66.9 Obesity, unspecified; Z86.73 Personal history of transient ischemic attack (TIA), and cerebral infarction without residual deficits; Z88.5 Allergy status to narcotic agent; Z88.8 Allergy status to other drugs, medicaments and biological substances; Z87.891 Personal history of nicotine dependence; Z90.710 Acquired absence of both cervix and uterus; Z68.30 Body mass index [BMI] 30.0-30.9, adult; Z79.82 Long term (current) use of aspirin; Z79.899 Other long term (current) drug therapy
CPT/HCPCS: 36415; 71045; 71275; 74175; 76937; 80048; 80061; 80076; 82947; 83036; 83880; 84484; 85025; 85379; 85610; 93005; 93306; 93458; 99152; 99153; 99285; C1893; G0378; J0461; J1644; J1650; J2003; J2250; J2270; J2405; J2470; J3010; J7040; Q9966; Q9967

== ENCOUNTER 2025-01-07 09:54 | Emergency (ER) | payer BC ==
[2025-01-07] MEDS ORDERED: KETOROLAC 30 MG/ML INJ ONE (10:39)
[2025-01-07 11:00] LABS: Absolute Lymphocytes (CBC) 2.6 K/uL (0.7-4.9); Hematocrit 40.0 % (36.0-45.0); Hemoglobin 13.6 g/dL (12.0-15.0); MCH 28.9 pg (27.0-35.0); MCHC 34.0 g/dL (32.0-36.0); MCV 85.0 fL (80-100); MPV 9.1 fL (7.6-11.3); Nucleated RBC Absolute Count 0.0 (0-0); Nucleated Red Blood Cells % 0.1 % (0-0); RBC Red Blood Cell Count 4.71 M/uL (3.86-4.86); White Blood Count 8.20 thou/uL (4.3-10.9)
--- NOTE | 2025-01-07 11:00 | RAD REPORT ---
EXAMINATION: ONE VIEW CHEST XR CLINICAL INDICATION: Female, 64 years old.,dizzy TECHNIQUE: Frontal chest projection is submitted. Examination is limited by patient positioning and t echnique. COMPARISON: 08/10/2024 FINDINGS: The lungs are well inflated and clear. No pneumothorax or sizable effusion. The heart is normal in s ize. Mediastinal contours are unremarkable. IMPRESSION: No acute intrathoracic abnormalities.
--- NOTE | 2025-01-07 11:02 | RAD REPORT ---
EXAM: CT Head Brain Wo Cont HISTORY: Dizziness;Headache COMPARISON: 12/27/2022 TECHNIQUE: Multiple contiguous axial images were obtained for a CT of the brain without contrast. Sag ittal and coronal reformats were performed. One or more of the following dose reduction techniques were used: Automated exposure control, adjus tment of the mA and kV according to patient size, and iterative reconstruction. Unless otherwise specified, incidental findings do not require dedicated imaging follow-up. FINDINGS: No evidence of hydrocephalus, intracranial hemorrhage, or extra-axial fluid collection. The brain is normal in morphology. The calvarium is intact. The visualized paranasal sinuses and mastoid air cells are essentially clear . IMPRESSION: No evidence of acute intracranial abnormality.
[2025-01-07 11:11] LABS: PT Prothrombin Time 11.9 SECONDS (10-13.0); PTT, Activated Partial Thromb 33.2 SECONDS (27.2-37.4); Protime INR 1.05
[2025-01-07 11:21] LABS: ALT/SGPT 22.0 U/L (13-56); AST/SGOT 11.0 U/L (15-37); Albumin 3.9 g/dL (3.4-5.0); Albumin/Globulin Ratio 1.3 (1.1-1.8); Alkaline Phosphatase 92.0 U/L (45-117); Anion Gap 6.6 mEq/L (5.0-15.0); BUN Blood Urea Nitrogen 11.0 mg/dL (7-18); Bilirubin Indirect, Calculated 0.4 mg/dL (0.2-0.8); Globulin 3.0 g/dL (2.3-3.5); Glucose Level 86.0 mg/dL (74-106); Magnesium 2.2 mg/dL (1.6-2.4); Potassium 3.6 mEq/L (3.5-5.1); Troponin High Sensitivity 5.1 pg/mL (<58.9)
--- NOTE | 2025-01-07 11:34 | EDPHYS ---
Physician Documentation [facility] Name: Marisa Baker Age: 64 yrs Sex: Female : 1960 Arrival Date: 01/07/2025 Time: 09:54 Bed 18 Private MD: ED Physician Cristine Moore HPI: 01/07 10:50 This 64 yrs old Female presents to ER via Wheelchair with complaints of Dizziness, sp3 Headache, felt like passing out. 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 Symptoms have now resolved other than a mild headache. No thunderclap incident reported. She denies any fever, neck pain, neck stiffness, back pain, chest pain, shortness of breath, abdominal pain, vomiting, diarrhea, focal neurological deficit, speech changes or problems, or any other signs or symptoms on ROS at this time. She denies any trauma. Family history of "brain aneurysm" reported.. Historical: - Allergies: 10:06 Adhesives; ll1 10:06 Codeine; ll1 10:06 diphenhydramine HCl; irritability; ll1 - PMHx: 10:06 CVA; left carotid 98% blocked; TIA; ll1 - Immunization history:: Adult Immunizations up to date. - Infectious Disease History:: Denies. - Social history:: Smoking status: Patient denies any tobacco usage or history of. ROS: 10:52 Constitutional: Negative for fever, chills, and weight loss, Eyes: Negative for injury, sp3 pain, redness, and discharge, Neck: Negative for injury, pain, and swelling, Respiratory: Negative for shortness of breath, cough, wheezing, and pleuritic chest pain, Abdomen/GI: Negative for abdominal pain, nausea, vomiting, diarrhea, and constipation, Back: Negative for injury and pain, MS/Extremity: Negative for injury and deformity, Skin: Negative for injury, rash, and discoloration, Psych: Negative for depression, anxiety, suicide ideation, homicidal ideation, and hallucinations, Allergy/Immunology: Negative for hives, rash, and allergies, Endocrine: Negative for neck swelling, polydipsia, polyuria, polyphagia, and marked weight changes, Hematologic/Lymphatic: Negative for swollen nodes, abnormal bleeding, and unusual bruising, 10:52 All other systems are negative, Exam: 10:53 Constitutional: This is a well developed, well nourished patient who is awake, alert, sp3 and in no acute distress. Head/Face: Normocephalic, atraumatic. Eyes: Pupils equal round and reactive to light, extra-ocular motions intact. Lids and lashes normal. Conjunctiva and sclera are non-icteric and not injected. Cornea within normal limits. Periorbital areas with no swelling, redness, or edema. ENT: Nares patent. No nasal discharge, no septal abnormalities noted. External auditory canals are clear. Oropharynx with no redness, swelling, or masses, exudates, or evidence of obstruction, uvula midline. Mucous membranes moist. Neck: Trachea midline, no thyromegaly or masses palpated, and no cervical lymphadenopathy. Supple, full range of motion without nuchal rigidity, or vertebral point tenderness. No Meningismus. Chest/axilla: Normal chest wall appearance and motion. Nontender with no deformity. No lesions are appreciated. Cardiovascular: Regular rate and rhythm with a normal S1 and S2. No gallops, murmurs, or rubs. Normal PMI, no JVD. No pulse deficits. Respiratory: Lungs have equal breath sounds bilaterally, clear to auscultation and percussion. No rales, rhonchi or wheezes noted. No increased work of breathing, no retractions or nasal flaring. Abdomen/GI: Soft, non-tender, with normal bowel sounds. No distension or tympany. No guarding or rebound. No evidence of tenderness throughout. Back: No spinal tenderness. No costovertebral tenderness. Full range of motion. Skin: Warm, dry with normal turgor. Normal color with no rashes, no lesions, and no evidence of cellulitis. MS/ Extremity: Pulses equal, no cyanosis. Neurovascular intact. Full, normal range of motion. Neuro: Awake and alert, GCS 15, oriented to person, place, time, and situation. Cranial nerves II-XII grossly intact. Motor strength 5/5 in all extremities. Sensory grossly intact. Cerebellar exam normal. Normal gait. Psych: Awake, alert, with orientation to person, place and time. Behavior, mood, and affect are within normal limits. 10:53 ECG was reviewed by the Attending Physician. EKG demonstrates 82 bpm with normal intervals, normal QRS, normal axis and nonspecific diffuse ST/T changes without evidence of acute ischemia. Vital Signs: 10:11 BP 175 / 100; Pulse 78; Resp 17; Temp 97.9; Pulse Ox 97% on R/A; Weight 66.22 kg; ll1 Height 5 ft. 3 in. ; Pain 10/10; 10:44 BP 143 / 85 Supine; Pulse 69; ll1 10:46 BP 172 / 89 Sitting; Pulse 84; ll1 10:48 BP 172 / 86; Pulse 74; Pulse Ox 97% ; Pain 10/10; ll1 12:04 BP 150 / 82; Pulse 60; Resp 17; Pulse Ox 97% on R/A; ll1 13:01 BP 156 / 82; Pulse 70; Resp 17; Pulse Ox 98% ; ll1 13:33 BP 158 / 79; Pulse 63; Resp 16; Pulse Ox 96% on R/A; Pain 7/10; ll1 10:11 Body Mass Index 25.86 (66.22 kg, 160.02 cm) ll1 10:11 Pain Scale: Adult ll1 10:48 Pain Scale: Adult ll1 13:33 Pain Scale: Adult ll1 MDM: 10:08 Medical Screening Exam initiated sp3 10:54 Data reviewed: vital signs, nurses notes, lab test result(s), EKG, radiologic studies. sp3 ED course: 64-year-old female with near syncope, headache. Differential diagnosis includes idiopathic headache, dehydration, heat illness symptoms, electrolyte abnormality, and to a lesser degree TIA/CVA spectrum though not normally presenting as a headache, or other space-occupying or bleeding pathology intracranially. Workup will include CT scan of the head, syncope workup with disposition pending workup and patient course. Pain control with ketorolac to start.. 11:32 ED course: Full workup negative on everything. We will safely discharge patient home at 3 this time. Patient feels better.. 01/07 10:09 Order name: Basic Metabolic Panel; Complete Time: : sp3 01/07 10:09 Order name: CBC with Diff; Complete Time: : 3 01/07 10:09 Order name: Hepatic Function; Complete Time: 3 01/07 10:09 Order name: Magnesium; Complete Time: 11:28 sp3 01/07 10:09 Order name: Protime (+inr); Complete Time: 11:28 sp3 01/07 10:09 Order name: Ptt, Activated; Complete Time: 11:3 01/07 10:09 Order name: Troponin High Sensitivity; Complete Time: 11:28 sp3 01/07 10:09 Order name: CT Head Brain wo Cont; Complete Time: 11:3 01/07 10:09 Order name: Chest Single View XRAY; Complete Time: 11:3 01/07 10:09 Order name: Cardiac monitoring; Complete Time: 10: sp3 01/07 10:09 Order name: EKG - Nurse/Tech; Complete Time: 10:3 01/07 10:09 Order name: IV Saline Lock; Complete Time: 10:45 3 01/07 10:09 Order name: Labs collected and sent; Complete Time: 10:45 3 01/07 10:09 Order name: NPO; Complete Time: 10:3 01/07 10:09 Order name: O2 Per Protocol; Complete Time: 10:3 01/07 10:09 Order name: O2 Sat Monitoring; Complete Time: 10:3 01/07 10:09 Order name: Orthostatics; Complete Time: 10:52 sp3 Administered Medications: 10:52 Drug: Ketorolac IVP 15 mg IVP once Route: IVP; Site: right antecubital; ll1 12:03 Follow up: Response: No adverse reaction; Pain is decreased; RASS: Alert and Calm (0) ll1 12:03 Drug: Meclizine PO 25 mg PO once Route: PO; ll1 13:03 Follow up: Response: No adverse reaction; RASS: Alert and Calm (0) ll1 13:03 Drug: Ondansetron IVP 4 mg IVP once; over 2 minutes Route: IVP; Site: right antecubital;ll1 13:19 Follow up: Response: No adverse reaction; Nausea is decreased ll1 13:04 Drug: HYDROmorphone IVP 1 mg IVP once {Note: pain 9.5/10 RASS 0.} Route: IVP; Site: ll1 right antecubital; 13:19 Follow up: Response: No adverse reaction; Pain is decreased; RASS: Alert and Calm (0) ll1 Disposition Summary: 01/07/25 11:33 Discharge Ordered Notes: Location: Home sp3 Condition: Stable sp3 Diagnosis - Headache sp3 Followup: sp3 - With: Private Physician - When: Upon discharge from the Emergency Department - Reason: Continuance of care Discharge Instructions: - Discharge Summary Sheet sp3 - General Headache Without Cause sp3 Forms: - Medication Reconciliation Form sp3 - Antibiotic Education sp3 - Prescription Opioid Use sp3 - Patient Portal Instructions sp3 - Leadership Thank You Letter sp3 Prescriptions: - Meclizine 25 mg Oral Tablet - take 1 tablet ORAL route every 8 hours As needed; 30 tablet; Refills: 0, sp3 Product Selection Permitted - Diclofenac Sodium 75 mg Oral Tablet Sustained Release - take 1 tablet ORAL route 2 times per day; 30 tablet; Refills: 0, Product sp3 Selection Permitted Signatures: Dispatcher [employer] Beth Spicer RN RN ll1 Cristine Moore MD MD sp3 Corrections: (The following items were deleted from the chart) 10:10 10:10 Chest Single View+[email or web address] ordered. EDMS EDMS
--- NOTE | 2025-01-07 11:34 | ER ---
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 Sister of a brain aneurysm so she came to get checked right away. Coronavirus screen: Client denies travel out of the [place] in the last 14 days. At this time, the client does not indicate any symptoms associated with coronavirus-19. Ebola Screen: Patient denies travel to an Ebola-affected area in the 21 days before illness onset. Initial Sepsis Screen: Does the patient meet any 2 criteria? No. Patient's initial sepsis screen is negative. Does the patient have a suspected source of infection? No. Patient's initial sepsis screen is negative. Risk Assessment: Do you want to hurt yourself or someone else? Patient reports no desire to harm self or others. Onset of symptoms was January 07, 2025. 10:11 Method Of Arrival: Wheelchair ll1 10:11 Acuity: YESSI 2 ll1 Triage Assessment: 10:12 General: Appears distressed, uncomfortable, Behavior is calm, cooperative, appropriate ll1 for age. Pain: Complains of pain in [place] Pain currently is 10 out of 10 on a pain scale. Quality of pain is described as aching, throbbing, Pain began 30 min ago. Neuro: Reports dizziness, headache weakness. Musculoskeletal: Reports legs weak, troubling walking straight. 13:02 Headache History: The patient has had previous headaches and this one is less severe ll1 than previous episodes. 13:34 Pain: Also complains of nausea. ll1 Historical: - Allergies: 10:06 Adhesives; ll1 10:06 Codeine; ll1 10:06 diphenhydramine HCl; irritability; ll1 - PMHx: 10:06 CVA; left carotid 98% blocked; TIA; ll1 - Immunization history:: Adult Immunizations up to date. - Infectious Disease History:: Denies. - Social history:: Smoking status: Patient denies any tobacco usage or history of. Screenin:01 [facility] ED Fall Risk Assessment (Adult) History of falling in the last 3 months, ll1 including since admission No falls in past 3 months (0 pts) Confusion or Disorientation No (0 pts) Intoxicated or Sedated No (0 pts) Impaired Gait Yes (1 pt) Mobility Assist Device Used Yes (1 pt) Altered Elimination No (0 pt) Score/Fall Risk Level 0 - 2 = Low Risk Maintained a safe environment, Hourly rounding (assess needs \T\ fall precautionary measures) done. Abuse screen: Denies threats or abuse. Nutritional screening: No deficits noted. Tuberculosis screening: No symptoms or risk factors identified. Assessment: 10:17 Reassessment: Patient and/or family updated on plan of care and expected duration. Pain ll1 level reassessed. to CT via stretcher. 10:53 Reassessment: No changes from previously documented assessment. Patient and/or family ll1 updated on plan of care and expected duration. Pain level reassessed. Patient is alert, oriented x 3, equal unlabored respirations, skin warm/dry/pink. 12:00 Reassessment: Still leaning to the right side when trying to walk. Still has dizziness ll1 and some nausea also. Dr. Moore informed. 12:55 Reassessment: No changes from previously documented assessment. still dizzy, no change ll1 from medication. 13:00 Reassessment: No changes from previously documented assessment. Patient and/or family ll1 updated on plan of care and expected duration. Pain level reassessed. Patient is alert, oriented x 3, equal unlabored respirations, skin warm/dry/pink. 13:19 Reassessment: No changes from previously documented assessment. Patient and/or family ll1 updated on plan of care and expected duration. Pain level reassessed. Patient states feeling better. Vital Signs: 10:11 BP 175 / 100; Pulse 78; Resp 17; Temp 97.9; Pulse Ox 97% on R/A; Weight 66.22 kg; ll1 Height 5 ft. 3 in. ; Pain 10/10; 10:44 BP 143 / 85 Supine; Pulse 69; ll1 10:46 BP 172 / 89 Sitting; Pulse 84; ll1 10:48 BP 172 / 86; Pulse 74; Pulse Ox 97% ; Pain 10/10; ll1 12:04 BP 150 / 82; Pulse 60; Resp 17; Pulse Ox 97% on R/A; ll1 13:01 BP 156 / 82; Pulse 70; Resp 17; Pulse Ox 98% ; ll1 13:33 BP 158 / 79; Pulse 63; Resp 16; Pulse Ox 96% on R/A; Pain 7/10; ll1 10:11 Body Mass Index 25.86 (66.22 kg, 160.02 cm) ll1 10:11 Pain Scale: Adult ll1 10:48 Pain Scale: Adult ll1 13:33 Pain Scale: Adult ll1 ED Course: 09:57 Patient arrived in ED. cj3 09:57 Cristine Moore MD is Attending Physician. sp3 10:05 Arm band placed on Patient placed in an exam room, on a stretcher. ll1 10:10 Patient has correct armband on for positive identification. Bed in low position. ll1 Provided Education on: ER procedures and process. Client placed on continuous cardiac and pulse oximetry monitoring. NIBP monitoring applied. director it project on. 10:11 Beth Salmon, RN is Primary Nurse. ll1 10:12 Triage completed. ll1 10:23 CT Head Brain wo Cont In Process Unspecified. EDMS 10:27 Chest Single View XRAY In Process Unspecified. EDMS 10:40 Initial lab(s) drawn, by me, sent to lab. Inserted saline lock: 22 gauge in right ll1 antecubital area, using aseptic technique. Blood collected. Flushed with 10 mL NS. 13:34 No provider procedures requiring assistance completed. IV discontinued, intact, ll1 bleeding controlled, No redness/swelling at site. Pressure dressing applied. Administered Medications: 10:52 Drug: Ketorolac IVP 15 mg IVP once Route: IVP; Site: right antecubital; ll1 12:03 Follow up: Response: No adverse reaction; Pain is decreased; RASS: Alert and Calm (0) ll1 12:03 Drug: Meclizine PO 25 mg PO once Route: PO; ll1 13:03 Follow up: Response: No adverse reaction; RASS: Alert and Calm (0) ll1 13:03 Drug: Ondansetron IVP 4 mg IVP once; over 2 minutes Route: IVP; Site: right antecubital;1 13:19 Follow up: Response: No adverse reaction; Nausea is decreased ll1 13:04 Drug: HYDROmorphone IVP 1 mg IVP once {Note: pain 9.5/10 RASS 0.} Route: IVP; Site: ll1 right antecubital; 13:19 Follow up: Response: No adverse reaction; Pain is decreased; RASS: Alert and Calm (0) 1 Medication: 13:19 VIS not applicable for this client. 1 Outcome: 11:33 Discharge ordered by MD. [email or web address] 13:34 Discharged to home ambulatory, [facility] 13:34 Condition: stable 13:34 Discharge instructions given to patient, family, Instructed on discharge instructions, follow up and referral plans. medication usage, Demonstrated understanding of instructions, follow-up care, medications, Prescriptions given X 2, 13:35 Patient left the ED. 1 Signatures: Dispatcher [employer] EDBeth Foster RN RN 1 Cristine Moore MD MD sp3 Nora Christiansen cj3 Corrections: (The following items were deleted from the chart) 13:05 12:59 HYDROmorphone IVP 1 mg IVP in right antecubital; pain 9.5/10 RASS 0 [place] [id number]
[2025-01-07] MEDS ORDERED: MECLIZINE HCL 12.5 MG TAB ONE (11:56)
[2025-01-07] MEDS ORDERED: ONDANSETRON 4 MG/2 ML VIAL ONE (12:46)
[2025-01-07] MEDS ORDERED: HYDROMORPHONE HCL 1 MG/ML INJ ONE (12:46)
[2025-01-07 13:39] VITALS: TEMP 97.9
[2025-01-07 13:49] VITALS: BP 158/79; O2SAT 96
== END 2025-01-07 13:35 | disposition home or self-care (01) ==
LOC: ER 09:54
DX: R51.9 Headache, unspecified (principal); R42 Dizziness and giddiness; R55 Syncope and collapse; Z86.73 Personal history of transient ischemic attack (TIA), and cerebral infarction without residual deficits
CPT/HCPCS: 85025; 80048; 36415; 83735; 85610; 80076; 85730; 84484; 70450; 71045; 96375; 96374; 99285; J8597; J1171; J2405; 93005